=== PATIENT | female | born 1955 | race Caucasian/White ===

== ENCOUNTER 2024-10-13 07:03 | Emergency (ER) | payer MEDICARE, MEDICAID, SELFPAY ==
[2024-10-13] VITALS (7 sets, daily range): BP systolic 175–197; BP diastolic 121–140; PULSE 77–112; RESP 18–28; TEMP 36.6–37; O2SAT 92–96; BMI 24.2
--- NOTE | 2024-10-13 07:39 | EKG_ITS ---
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[id number] Requested By: Keith Kan Order Number: [id number] Reading MD: Keith Kan Measurements Intervals [place] Rate: 89 P: 52 MN: 142 QRS: -27 QRSD: 94 T: 120 QT: 399 QTc: 486 Interpretive Statements SINUS RHYTHM WITH OCCASIONAL SUPRAVENTRICULAR PREMATURE COMPLEXES POSSIBLE LEFT ATRIAL ENLARGEMENT [-0.1mV P-WAVE IN V1/V2] BORDERLINE LEFT AXIS DEVIATION [QRS AXIS < -20] LEFT VENTRICULAR HYPERTROPHY AND ST-T CHANGE [VOLTAGE CRITERIA PLUS ST/T ABNORMALITY] Compared to ECG 07/24/2024 14:54:05 Sinus arrhythmia no longer present ST (T wave) deviation still present /store/S0/[id number]
--- NOTE | 2024-10-13 07:39 | XR_ITS ---
Examination: AP chest single view Technique one AP portable upright chest single view Exam date 9: October 13, 2024 0750 hours COMPARISON: July 24, 2024 INDICATIONS: Shortness of breath today. FINDINGS: Mild to moderate CHF Mild enlargement cardiac contour, prominent vascular congestion with perihilar basilar edema Right axillary surgical clips IMPRESSION: Mild to moderate CHF
[2024-10-13 08:52] LABS: Basophils # (Auto) 0.1 Thou/mm3 (0.0-0.2); Basophils % (Auto) 1 % (0-2.5); Eosinophils % (Auto) 0 % (0-10); Hematocrit 38.6 % (36.0-46.0); Hemoglobin 12.9 g/dL (12.0-16.0); Immature Granulocytes % (Auto) 0 % (0-0); Immature Granulocytes Auto 0.03 Thou/mm3 (0.00-0.00); Lymphocytes # (Auto) 0.6 Thou/mm3 (1.0-4.8); Lymphocytes % (Auto) 7 % (10-50); Mean Corpuscular HGB Conc 33.4 g/dl (31.0-37.0); Mean Corpuscular Hemoglobin 31.5 pg (25.0-35.0); Mean Corpuscular Volume 94 fL (80-100); Monocytes # (Auto) 0.8 Thou/mm3 (0.0-0.8); Monocytes % (Auto) 9 % (0-12); Neutrophils # (Auto) 7.4 Thou/mm3 (1.8-7.7); Neutrophils % (Auto) 83 % (37-80); Nucleated Red Blood Cell % 0 /100 WBC (0); Platelet Count 215 Thou/mm3 (140-440); RDW Standard Deviation 49.1 fL (36.4-46.3); White Blood Count 8.9 Thou/mm3 (3.6-11.0)
[2024-10-13] MEDS: FUROSEMIDE INJ 10 MG/ML 4ML VIAL 80 MG IVP (09:20)
[2024-10-13 09:22] LABS: Alanine Aminotransferase 91 U/L (10-49); Albumin, Serum 3.9 gm/dL (3.4-4.8); Albumin/Globulin Ratio 1.5 (1.2-2.2); Alkaline Phosphatase 146 U/L (46-116); Anion Gap 11 (7-16); Aspartate Amino Transferase 51 U/L (0-34); BUN/Creatinine Ratio 25 Ratio (12-20); Bilirubin,Total 0.3 mg/dL (0.3-1.2); Blood Urea Nitrogen 59 mg/dL (9-23); Calcium 8.9 mg/dL (8.3-10.6); Carbon Dioxide 24.2 mMol/L (20.0-31.0); Chloride 103 mMol/L (98-107); Creatinine (Component) 2.4 mg/dL (0.6-1.3); Estimated Creatinine Clearance 17.8 mL/min (>60); Globulin 2.6 gm/dL (2.3-3.5); Glucose 125 mg/dL (74-106); Osmolality,Calculated 293 (275-295); Potassium 3.8 mMol/L (3.4-5.1); Sodium 138 mMol/L (136-145); Total Protein 6.5 gm/dL (5.7-8.2); eGFR 21 See Note
[2024-10-13 09:24] LABS: Troponin I 0.136 ng/mL (0.0-0.045)
--- NOTE | 2024-10-13 10:33 | PD.EDSOB ---
ED SOB =RME/HPI General Chief Complaint: Shortness of Breath/Dyspnea Stated Complaint: sob Time Seen by Provider: 10/13/24 07:17 Arrival date/time: 10/13/24 07:03 RME / HPI RME / HPI Narrative: 69 year old female with history of CHF, hypertension, breast cancer s/p mastectomy, methamphetamine use presents to the ED BIBA for evaluation of shortness of breath today. Reports feeling fluid in my lungs accompanied by wheezing. Reportedly ran out of her Lasix (20mg BID) and Albuterol inhaler 5 days ago. Additionally complains of vague abdominal pain and bilateral lower extremity swelling. Patient admits to using meth yesterday. Denies fevers, chills, nausea, vomiting, diarrhea, or urinary symptoms. Related Data Home Medications ?Medication ?Instructions ?Recorded ?Confirmed bupropion HCl 150 mg tablet,12 hr 150 mg PO BID 10/19/23 10/19/23 sustained-release tolterodine 4 mg capsule,extended 4 mg PO QDAY 10/19/23 10/19/23 release 24 hr Previous Rx's ?Medication ?Instructions ?Recorded albuterol sulfate 90 mcg/actuation 2 inh inhalation Q4H PRN shortness 04/26/24 aerosol inhaler of breath or wheezing #8.5 grams amlodipine 10 mg tablet 10 mg PO QDAY #30 tabs 07/14/24 albuterol sulfate 90 mcg/actuation 1 inh inhalation QID PRN shortness 10/13/24 aerosol inhaler of breath or wheezing #8.5 grams furosemide 20 mg tablet (Lasix) 20 mg PO BID #60 tabs 10/13/24 prednisone 50 mg tablet 50 mg PO QDAY #4 tabs 10/13/24 Allergies Allergy/AdvReac Type Severity Reaction Status Date / Time iodine Allergy Severe Rash Verified 07/23/24 13:17 Review of Systems Review of Systems Narrative Review of Systems: Gen: No fever, no chills, no weight loss EYES: No discharge, no visual changes, no pain HEENT: No ear pain, no congestion, no sore throat PULM: +shortness of breath, +wheezing CV: No chest pain, no palpitations, no chest tightness GI: No nausea, no vomiting, no diarrhea, no pain, no constipation : No frequency, no urgency,? no dysuria Musc/skel: +BLE swelling. No joint pain, no back pain Skin: No rash, no ecchymosis, no lesions Neuro: No weakness, no headache Past Medical History Past Medical History CARDIAC: Positive Cardiac Disorders, Congestive Heart Failure and Hypertension RESPIRATORY: Positive Chronic Obstructive Pulmonary Disease (COPD) and Bronchitis GASTROINTESTINAL: Positive Gastrointestinal Disorders, Gastrointestinal Bleed and Ulcer GENITOURINARY: Positive Genitourinary Disorders REPRODUCTIVE: Positive Breast Cancer and Previous Pregnancies MUSCULOSKELETAL: Positive Musculoskeletal Disorders and Arthritis HEMATOLOGIC: Positive Blood Disorders and Anemia PSYCHO/SOCIAL: Positive Recreational Drug Use, Depression, Anxiety and Post Traumatic Stress Disorder OTHER HISTORY: Positive Cosmetic Surgery (breast cancer surgery cosmetic. ), Falls, Blood Transfusions, Chicken Pox and Breast Cancer Family History FAMILY HISTORY: Positive Family Gastrointestinal Problems and Family Cancer Surgical History SURGICAL: Positive Mastectomy and Section Social History SMOKING STATUS: Never smoker SECOND HAND EXPOSURE: No ED Exam Narrative Physical exam: GENERAL APPEARANCE: AxOx4, no obvious distress, nontoxic appearing HEENT: NC, AT. MMM. EOMI, clear conjunctiva, oropharynx clear. NECK: Supple without lymphadenopathy. No stiffness or restricted ROM. HEART: Normal rate and regular rhythm, normal S1/S1, no m/r/g LUNGS: Mild increased respiratory effort, bundy expiratory wheezing. No crackles. ABDOMEN: Soft, nontender, nondistended with good bowel sounds heard. BACK: No midline C/T/L spine pain or deformity, No CVAT, no obvious deformity. EXTREMITIES: Without cyanosis, clubbing or edema. MUSCULOSKELETAL: FROM of all major joints, no chest tenderness NEUROLOGICAL: Grossly nonfocal. Alert and oriented, moving all 4 extremities. CN not formally tested but appear grossly intact. Skin: Warm and dry without any rash. Course Course Course Narrative: chest xray ordered to help determine etiology of shortness of breath. Quality Measures none Orders Category Date Time Status EKG (ED ONLY) *Do not use* NOW Care 10/13/24 07:39 Completed EKG (ED Only) Stat Exams 10/13/24 07:39 Draft XR chest 1V Stat Exams 10/13/24 07:39 Completed CBC Stat Lab 10/13/24 08:27 Completed CMP [Comprehensive Metabolic Panel] Stat Lab 10/13/24 08:27 Completed Troponin I Stat Lab 10/13/24 08:27 Completed Troponin I Stat Lab 10/13/24 11:12 Completed ALBUTEROL RT 0.5ml [Proventil Rt 0.5ml] Med 10/13/24 12:28 Discontinued 10 mg INH X1 ONE Furosemide Inj [Lasix Inj] Med 10/13/24 08:04 Discontinued 80 mg IVP X1 ONE Ipratropium [place] Rt Dee [Atrovent Rt Dee] Med 10/13/24 12:28 Discontinued 1 mg INH X1 ONE Sodium Chloride Rt Dee 0.9% [NS Rt Dee 0.9%] Med 10/13/24 12:28 Discontinued 3 ml INH PRN PRN predniSONE Med 10/13/24 12:28 Discontinued 60 mg PO X1 ONE Reevaluation(s) Reevaluation #1: On reassessment patient is still wheezing although is improved. Will order additional breathing treatment. Time: 12:40 Reevaluation #2: Wheezing improved after breathing treatments, no respiratory distress. We reviewed all the results, analysis, and treatment plans. Patient is amenable to discharge. Strict return precautions were outlined. Patient was discharged in stable condition. Time: 14:20 Vital Signs Vital signs: Vital Signs Temperature 97.9 F 10/13/24 07:28 Pulse Rate 97 10/13/24 07:28 Respiratory Rate 20 10/13/24 07:28 Blood Pressure 175/121 H 10/13/24 07:28 Pulse Oximetry (%) 95 10/13/24 07:28 Oxygen Delivery Method Room Air 10/13/24 07:28 Pulse ox is 92% on room air which is low. Shortness of Breath / Dyspnea MDM Narrative MDM Narrative:: Shira Wylie am scribing for and in the presence of Dr. Kan. Patient data External records reviewed:: [facility] previous records (I reviewed ED visit on 07/24/2024 for CHF) and EMS form Clinical information provided by:: patient and EMS Social determinants that could affect healthcare access:: substance use (Methamphetamine ) Patient has the following chronic illnesses:: CHF, hypertension, breast cancer s/p mastectomy, methamphetamine use How is presenting disease/condition affected by chronic disease/condition?: exacerbated by Evaluation data The following diagnostics were reviewed and interpreted by me:: lab results, radiology exam(s) and EKG tracing(s) (Sinus rhythm with arrhythmia, rate 89, no STEMI. ) Lab and/or radiology exams considered but not ordered:: None Interpretation Summary: Ordering Physician: Keith Kan MD Date of Service: 10/13/24 Procedure(s): XR chest 1V Accession Number(s): [id number] cc: Keith Kan MD; Panfilo Vasquez MD~ Examination: AP chest single view Technique one AP portable upright chest single view Exam date 9: October 13, 2024 0750 hours COMPARISON: July 24, 2024 INDICATIONS: Shortness of breath today. FINDINGS: Mild to moderate CHF Mild enlargement cardiac contour, prominent vascular congestion with perihilar basilar edema Right axillary surgical clips IMPRESSION: Mild to moderate CHF Dictated By: Panfilo Vasquez MD Signed By: <Electronically signed by Panfilo Vasquez MD in OV> 10/13/24 0903 Medications / Prescriptions Medications or Prescriptions considered but not ordered:: None Medication administrations:: Medication Administration History Discontinued Medications Albuterol (Albuterol Rt 2.5 Mg/0.5 Ml Nebu) 10 mg INH X1 ONE Stop: 10/13/24 12:29 Last Admin: 10/13/24 12:48 Dose: 10 mg Documented By: JAXON Furosemide (Furosemide Inj 10 Mg/Ml 4ml Vial) 80 mg IVP X1 ONE Stop: 10/13/24 08:05 Last Admin: 10/13/24 09:20 Dose: 80 mg Documented By: SHAVON Ipratropium [place] (Ipratropium Rt 0.5 Mg/ 2.5 Ml Nebu) 1 mg INH X1 ONE Stop: 10/13/24 12:29 Last Admin: 10/13/24 12:48 Dose: 1 mg Documented By: JAXON Prednisone (Prednisone 20 Mg Tablet) 60 mg PO X1 ONE Stop: 10/13/24 12:29 Last Admin: 10/13/24 12:48 Dose: 60 mg Documented By: SHAVON Sodium Chloride (Sodium Chloride Rt Dee 0.9% 3 Ml Nebu) 3 ml INH PRN PRN PRN Reason: SOLN Stop: 11/12/24 12:27 Last Admin: 10/13/24 12:49 Dose: 3 ml Documented By: JAXON See above Consultations Consultation(s) initiated? (list below): No Diagnosis Shortness of Breath Differential Diagnosis: acute exacerbation of chronic obstructive airways disease, congestive heart failure, community acquired pneumonia and asthma with exacerbation Most likely diagnosis given after review of the tests above:: Amphetamine abuse CHF COPD Admission Indicated Admission indicated?: not indicated Admission Request Was there a request for admission?: No Disposition Plan Disposition Plan: Discharge Discharge Attestation Discharge Attestation: The patient and all family members were given an opportunity to ask questions and understood the discharge instructions. Discharge instructions specifically effects, indications for sooner follow up or return to the emergency department, and the expected course of current diagnosis. Patient condition: Stable Critical Care Time Critical Care Time Critical Care Time: Yes Total Critical Care Time (min.): 35 Attestation: The high probability of sudden, clinically significant deterioration in the patient's condition required the highest level of my preparedness to intervene urgently. The services I provided to this patient were to treat and/or prevent clinically significant deterioration. Services included the following: chart data review, reviewing nursing notes and/or old charts, documentation time, aerodynamic consultant collaboration regarding findings and treatment options, medication orders and management, direct patient care, vital sign assessments and ordering, interpreting and reviewing diagnostic studies and lab tests. Aggregate critical care time includes only time during which I was engaged in work directly related to the patient's care, as described above, whether at bedside or elsewhere in the Emergency Department. It did not include time spent performing other reported procedures or the services of residents, students, nurses or physician assistants. Discharge Plan Plan Patient Disposition: HOME (Self Care) Prescriptions/Referrals Prescriptions/Med Rec: New prednisone 50 mg tablet 50 mg PO QDAY Qty: 4 0RF albuterol sulfate 90 mcg/actuation HFA aerosol inhaler 1 inh inhalation QID PRN (Reason: shortness of breath or wheezing) Qty: 8.5 0RF furosemide [Lasix] 20 mg tablet 20 mg PO BID Qty: 60 0RF No Action bupropion HCl 150 mg Tablet Sustained-Release 12 Hr 150 mg PO BID tolterodine 4 mg Capsule,Extended Release 24hr 4 mg PO QDAY amlodipine 10 mg tablet 10 mg PO QDAY Qty: 30 1RF albuterol sulfate 90 mcg/actuation HFA aerosol inhaler 2 inh inhalation Q4H PRN (Reason: shortness of breath or wheezing) Qty: 8.5 0RF Referrals: Keith Kan MD [Primary Care Provider] - In 1 week Problem List Clinical Impression: Amphetamine abuse, CHF (congestive heart failure), COPD (chronic obstructive pulmonary disease) Patient/Caregiver Discharge Instructions Education Materials: ED CHF Left Side, ED COPD Flare, ED Drug Abuse Additional Instructions: Stop using methamphetamines as it worsens your heart condition. Please take all medicines as prescribed. With the inhaler prescribed, give yourself 1 puff every 6 hours while awake for the next 3 days. After 3 days you can use the inhaler only as needed for shortness of breath. Follow-up with your primary care doctor in 2 to 3 days for recheck. You can return to the emergency department sooner symptoms worsen or if you notice any new or concerning issues. Print Language: Scottish Stand Alone Forms: Fern Award Info., Patient Portal Info Letter
[2024-10-13 11:48] LABS: Troponin I 0.127 ng/mL (0.0-0.045)
[2024-10-13] MEDS: predniSONE 20 MG TABLET 60 MG PO (12:48)
[2024-10-13] MEDS: IPRATROPIUM RT 0.5 MG/ 2.5 ML NEBU 1 MG INH (12:48)
[2024-10-13] MEDS: ALBUTEROL RT 2.5 MG/0.5 ML NEBU 10 MG INH (12:48)
[2024-10-13] MEDS: SODIUM CHLORIDE RT SOL 0.9% 3 ML NEBU INH (12:49)
== END 2024-10-13 15:36 | disposition home or self-care (01) ==
PROVIDERS: Emergency Provider Emergency Medicine; PCP Emergency Medicine
DX: I11.0 Hypertensive heart disease with heart failure (principal); I50.9 Heart failure, unspecified; F15.10 Other stimulant abuse, uncomplicated; J44.9 Chronic obstructive pulmonary disease, unspecified; I49.1 Atrial premature depolarization
CPT/HCPCS: 36415; 71045; 80053; 84484; 85025; 93005; 94644; 96374; 99284; J1940; J7512

== ENCOUNTER 2024-10-19 06:50 | Inpatient (IN) | payer MEDICARE, MEDICAID, SELFPAY ==
[2024-10-19] VITALS (16 sets, daily range): BP systolic 136–218; BP diastolic 84–141; PULSE 54–89; RESP 13–96; TEMP 36.2–36.6; O2SAT 91–100; BMI 26.7
--- NOTE | 2024-10-19 06:53 | EKG_ITS ---
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
--- NOTE | 2024-10-19 06:53 | XR_ITS ---
Examination: AP chest single view Single AP portable semiupright chest single view Examination time: General a 10/06/2025 0701 hours Comparison October 13, 2024 INDICATIONS: Shortness of breath today. FINDINGS: [id number] CHF Moderate enlargement left ventricle Prominent vascular congestion with perihilar edema Right axillary surgical clips Prominent osteopenia IMPRESSION: [id number] CHF
--- NOTE | 2024-10-19 07:01 | PD.EDADULT ---
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 Patient was recently seen in the ER on 10/13/2024 for similar complaints and has a history of repeated hospitalizations. In the ER, patient reports feeling fluid in my lungs , she has dry cough which accompanied by wheezing. She is homeless, active smoker and uses methamphetamine 2-3 x a week. Medication list: Albuterol rescue INH Amlodipine 10mg HS Lasix 20mg BID Tolterodine 4mg qD Bupropion 15mg BID Past surgical history: mastectomy for breast CA Allergies: Iodine - hives Social history: Marital?Status:? Tobacco?Use:?Active smoker >35 pack years ; 1/2 pack/daily at present ETOH?Use:?Denies Drug?Note:?Last used methamphetamine 4 days ago Social?History?Note:?Patient is homeless Family history: Unsure Related Data Home Medications ?Medication ?Instructions ?Recorded ?Confirmed bupropion HCl 150 mg tablet,12 hr 150 mg PO BID 10/19/23 10/19/23 sustained-release tolterodine 4 mg capsule,extended 4 mg PO QDAY 10/19/23 10/19/23 release 24 hr Previous Rx's ?Medication ?Instructions ?Recorded albuterol sulfate 90 mcg/actuation 2 inh inhalation Q4H PRN shortness 04/26/24 aerosol inhaler of breath or wheezing #8.5 grams amlodipine 10 mg tablet 10 mg PO QDAY #30 tabs 07/14/24 albuterol sulfate 90 mcg/actuation 1 inh inhalation QID PRN shortness 10/13/24 aerosol inhaler of breath or wheezing #8.5 grams furosemide 20 mg tablet (Lasix) 20 mg PO BID #60 tabs 10/13/24 prednisone 50 mg tablet 50 mg PO QDAY #4 tabs 10/13/24 Allergies Allergy/AdvReac Type Severity Reaction Status Date / Time iodine Allergy Severe Rash Verified 07/23/24 13:17 Review of Systems Review of Systems Narrative Review of Systems: GENERAL: Denies fevers/chills or diaphoresis. HEENT: Denies headache or visual/hearing changes. Denies nasal discharge. NEURO: Denies unusual weakness or difficulty speaking. CARDIO: Denies chest pain or palpitations. PULM: SOB, dry coughing, and wheezing. GI: Denies abdominal pain, N/V/C/D. Reports having BMs URO: Denies burning/itching/pain/urinary changes. TRAUMA COUNSELLOR: Denies menstrual changes, hot flashes. MSK/EXT/SKIN: Denies joint/skeletal/muscle pain, issues/changes in upper or lower extremities, itchiness, or superficial pain. PSYCH: Cooperative, pleasant mood & affect. The rest of the review of systems is otherwise negative. ED Exam Narrative Physical exam: Constitutional Alert, oriented x4. NC -> RA after lasix HEENT Vision grossly intact. Patent nares. Trachea midline. Respiratory Chest normal on inspection, diffuse wheezes and bi-basal crackles on auscultation. Cardiovascular S1 and S2 audible, RRR. No murmurs or carotid bruit. No gross JVD. Abdominal Soft and non tender to palpation in all quadrants. BS + Genitourinary No bladder tenderness, no flank pain. Normal to palpation. Musculoskeletal Extremities tone within normal limits. Minimal LE edema. Neurological CN II - XII grossly intact. Extremity motor and sensation grossly intact. Skin Warm, dry and intact. No apparent lesions. Psychiatric Patient has a good affect, is cooperative. Course Course Course Narrative: CXR : Moderate CHF vascular congestion Influenza: ++ positive Treatment: - received tamiflu 75mg x1 - given lasix IV 40mg x1 - For hypertensive urgency, given hydralazine 10mg IV x1 - resumed home Carvedilol 25mg p.o. x1 Quality Measures none Orders Category Date Time Status Bedside Blood Glucose NOW Care 10/19/24 06:54 Active Bedside COVID-19 Antigen Test NOW Care 10/19/24 06:54 Active Bedside Influenza A&B Antigen Test NOW Care 10/19/24 06:54 Completed EKG (ED ONLY) *Do not use* NOW Care 10/19/24 06:53 Completed Insert IV NOW Care 10/19/24 06:[address] chest abdomen pelvis wo Stat Exams 10/19/24 07:[address] head/brain wo con Stat Exams 10/19/24 07:40 Completed CXRP [XR chest 1V portable] Stat Exams 10/19/24 06:53 Completed EKG (ED Only) Stat Exams 10/19/24 06:53 Draft BNP [B-Type Natriuretic Peptide] Stat Lab 10/19/24 07:15 Completed CBC Stat Lab 10/19/24 07:15 Completed CMP [Comprehensive Metabolic Panel] Stat Lab 10/19/24 07:15 Completed Drug Screen,Urine Stat Lab 10/19/24 07:26 Completed Lactic Acid [Lactate (Lactic Acid)] Stat Lab 10/19/24 07:15 Completed Magnesium Stat Lab 10/19/24 07:15 Completed Troponin I Stat Lab 10/19/24 07:15 Completed Urinalysis Stat Lab 10/19/24 07:28 Completed Albuterol/Ipratr Rt Dee [Duoneb Rt Dee] Med 10/19/24 06:54 Discontinued 3 ml INH X1 ONE Furosemide Inj [Lasix Inj] Med 10/19/24 06:53 Discontinued 40 mg IVP X1 ONE Labetalol IV [Trandate IV] Med 10/19/24 10:06 Discontinued 10 mg IVP X1 ONE Magnesium Sulfate 2 GM Ivpb [Magnesium Sulfate Ivpb] Med 10/19/24 07:37 Discontinued 2 gm in 50 ml IV X1 Magnesium Sulfate 2 GM Ivpb [Magnesium Sulfate Ivpb] Med 10/19/24 09:30 Discontinued 2 gm in 50 ml IV X1 Magnesium Sulfate 2 GM Ivpb [Magnesium Sulfate Ivpb] Med 10/19/24 09:30 Discontinued 2 gm in 50 ml IV X1 Morphine Inj Med 10/19/24 07:37 Discontinued 2 mg IVP X1 ONE Nitroglycerin Oint 2% [Nitro-paste Oint 2%] Med 10/19/24 07:39 Discontinued 2 inch TOP X1 ONE Nitroglycerin [Nitro-dur Patch] Med 10/19/24 07:37 Discontinued 0.4 mg TOP X1 ONE Oseltamivir [Tamiflu] Med 10/19/24 09:52 Discontinued 75 mg PO X1 ONE carVEDILOL [Coreg] Med 10/19/24 09:53 Discontinued 12.5 mg PO X1 ONE carVEDILOL [Coreg] Med 10/19/24 10:07 Discontinued 25 mg PO X1 ONE guaiFENesin/DM [Mucinex DM] Med 10/19/24 06:59 Discontinued 1 each PO X1 ONE hydrALAZINE INJ [Apresoline Inj] Med 10/19/24 09:18 Discontinued 10 mg IV X1 ONE Special Diet Request Routine Oth 10/19/24 10:10 Active Oxygen Delivery NOW RT 10/19/24 07:00 Active Reevaluation(s) Reevaluation #1: 10:00am BP 190-200 systolic 30mins after IV Hydralazine 10mg x1 Vital Signs Vital signs: Vital Signs Pulse Rate 69 10/19/24 07:05 Respiratory Rate 18 10/19/24 07:05 Pulse Oximetry (%) 100 10/19/24 07:[address] [facility] Patient data External records reviewed:: [facility] previous records Clinical information provided by:: patient Social determinants that could affect healthcare access:: substance use Patient has the following chronic illnesses:: HFrEF 305, CKD stage IV, meth use, smoking, primary HTN How is presenting disease/condition affected by chronic disease/condition?: exacerbated by Evaluation data The following diagnostics were reviewed and interpreted by me:: lab results, radiology exam(s) and EKG tracing(s) (My interpretation of the EKG is: Sinus rhythm (68 bpm) with nonspecific ST-T changes. Delonte Beard MD) Lab and/or radiology exams considered but not ordered:: None Interpretation Summary: Hypertensive urgency and CHF exacerbation in the setting of medication non compliance Medications Medications considered but not ordered:: bumex Medication administrations:: Medication Administration History Acetaminophen (Acetaminophen 325 Mg Tablet) 650 mg PO Q6H PRN PRN Reason: pain and Fever >100.4 Stop: 11/18/24 11:25 Hydrocodone Bitart/Acetaminophen (Hydrocodone/Apap 5/325 Tablet) 1 tab PO Q4HR PRN PRN Reason: PAIN SCALE 4-10(Mod-Sev Stop: 10/24/24 11:25 Albuterol/Ipratropium (Albuterol/Ipratropium (Duoneb) Rt Dee 3 Ml Nebu) 3 ml INH Q4HRRT [facility] Stop: 11/18/24 14:59 Last Admin: 10/19/24 14:34 Dose: 3 ml Documented By: JAXON Azithromycin (Azithromycin 250 Mg Tablet) 500 mg PO QDAY [facility] Stop: 10/26/24 14:29 Carvedilol (Carvedilol 12.5 Mg Tablet) 12.5 mg PO BIDWM [facility] Stop: 11/19/24 08:59 Enoxaparin Sodium (Enoxaparin Sod Inj 30 Mg/0.3 Ml Syringe) 40 mg SC QDAY [facility] Stop: 11/03/24 08:59 Furosemide (Furosemide Inj 10 Mg/Ml 4ml Vial) 40 mg IVP QDAY [facility] Stop: 11/19/24 08:59 Ceftriaxone Sodium/Dextrose (Rocephin/D5w 1gm Iv Premix) 50 mls @ 100 mls/hr IV QDAY [facility] Stop: 10/26/24 14:26 Methylprednisolone Sodium Succinate (Methylprednisolone Sod Succ 40 Mg Vial) 40 mg IVP QDAY [facility] Stop: 10/26/24 11:44 Last Admin: 10/19/24 12:38 Dose: 40 mg Documented By: APRIL Ondansetron HCl (Ondansetron Inj 2 Mg/Ml Inj 2 Ml) 4 mg IV Q6H PRN; Protocol PRN Reason: NAUSEA OR VOMITING Stop: 11/18/24 11:25 Oseltamivir Phosphate (Oseltamivir 30 Mg Capsule) 30 mg PO QDAY [facility] Stop: 10/24/24 08:59 Pantoprazole Sodium (Pantoprazole 40 Mg Tablet) 40 mg PO QDAY [facility] Stop: 11/19/24 08:59 Sennosides (Senna Tablet) 1 tab PO QDAY PRN; Protocol PRN Reason: constipation Stop: 11/18/24 11:25 Discontinued Medications Albuterol/Ipratropium (Albuterol/Ipratropium (Duoneb) Rt Dee 3 Ml Nebu) 3 ml INH X1 ONE Stop: 10/19/24 06:55 Last Admin: 10/19/24 07:05 Dose: 3 ml Documented By: JAXON Carvedilol (Carvedilol 12.5 Mg Tablet) 12.5 mg PO X1 ONE Stop: 10/19/24 09:54 Last Admin: 10/19/24 10:09 Dose: Not Given Documented By: APRIL Non-Admin Reason: Discontinued Carvedilol (Carvedilol 12.5 Mg Tablet) 25 mg PO X1 ONE Stop: 10/19/24 10:08 Last Admin: 10/19/24 10:35 Dose: 25 mg Documented By: APRIL Furosemide (Furosemide Inj 10 Mg/Ml 4ml Vial) 40 mg IVP X1 ONE Stop: 10/19/24 06:54 Last Admin: 10/19/24 08:03 Dose: 40 mg Documented By: VG Guaifenesin/Dextromethorphan (Guaifenesin/Dm Tablet) 1 each PO X1 ONE Stop: 10/19/24 07:00 Last Admin: 10/19/24 09:35 Dose: 1 each Documented By: APRIL Hydralazine HCl (Hydralazine Inj 20 Mg/Ml Vial) 10 mg IV X1 ONE Stop: 10/19/24 09:19 Last Admin: 10/19/24 09:35 Dose: 10 mg Documented By: APRIL Magnesium Sulfate (Magnesium Sulfate Ivpb) 2 gm in 50 mls @ 999 mls/hr IV X1 ONE Stop: 10/19/24 07:39 Last Admin: 10/19/24 09:30 Dose: Not Given Documented By: VG Non-Admin Reason: Cancelled by Provider Magnesium Sulfate (Magnesium Sulfate Ivpb) 2 gm in 50 mls @ 999 mls/hr IV X1 ONE Stop: 10/19/24 09:32 Magnesium Sulfate (Magnesium Sulfate Ivpb) 2 gm in 50 mls @ 25 mls/hr IV X1 ONE Stop: 10/19/24 11:29 Last Infusion: 10/19/24 12:35 Dose: Infused Documented By: Admin: 10/19/24 09:32 Dose: 25 mls/hr Documented By: APRIL Labetalol HCl (Labetalol Inj 5 Mg/Ml Vial 20 Ml) 10 mg IVP X1 ONE Stop: 10/19/24 10:07 Morphine Sulfate (Morphine Sulf Inj 10 Mg/Ml Vial) 2 mg IVP X1 ONE Stop: 10/19/24 07:38 Last Admin: 10/19/24 08:02 Dose: 2 mg Documented By: APRIL Nitroglycerin (Nitroglycerin 0.4 Mg/Hr Patch.Td24) 0.4 mg TOP X1 ONE Stop: 10/19/24 07:38 Last Admin: 10/19/24 07:52 Dose: Not Given Documented By: VG Non-Admin Reason: Discontinued Nitroglycerin (Nitroglycerin Oint 2% 1 Inch Packet) 2 inch TOP X1 ONE Stop: 10/19/24 07:40 Last Admin: 10/19/24 08:20 Dose: 2 inch Documented By: APRIL Oseltamivir Phosphate (Oseltamivir 75 Mg Capsule) 75 mg PO X1 ONE Stop: 10/19/24 09:53 Last Admin: 10/19/24 10:35 Dose: 75 mg Documented By: APRIL Potassium Chloride (Potassium Chloride 20 Meq Tabcr) 20 meq PO X1 ONE Stop: 10/19/24 14:48 Lasix and Mg and morphine and topical NTG and Tamiflu and labetalol Consultations Consultation(s) initiated? (list below): No Diagnosis Differential Diagnosis ED Complaint MDM: [place], CHF, pneumonia, respiratory failure, COVID, influenza Most likely diagnosis given after review of the tests above:: Hypertensive urgency HFrEF exacerbation Viral bronchitis due to influenza Admission Indicated Admission indicated?: indicated Explain why admission is indicated or not indicated:: Hypertensive urgency refractory to IV anti hypertesnives HFrEF exacerbation, now on room air but pending medication compliance Social - needs placement , patient is homeless. Admission Request Was there a request for admission?: Yes Admission Attestation Admission request attestation: Discussed case with Hospitalist service regarding admission. Discussed patients ED course, exam findings, labs, and radiology results. The Hospitalist [agrees,declines] to accept the patient for admission. Disposition Plan Disposition Plan: Admit Medical Decision Making MDM Narrative MDM Narrative: Patient is a 69 year old female who presented with SOB in the setting of HFrEF 30% and active meth use (last used 4 days ago). CXR showed moderate CHF. Patient was laos found to be influenza A positive on bedside testing. BP noted to be >200 on presentation, refractory to IV antihypertensives. Patient is also homeless and has not been compliant with her home medications for x1 week. Diagnosis: - Hypertensive urgency refractory to IV anti hypertesnives - HFrEF exacerbation - Worsening CKD IIIb -> IV - Viral bronchitis due to influenza + - Social - needs placement , patient is homeless. Treatment: - received tamiflu 75mg x1 - given lasix IV 40mg x1 - IV hydralazine 10mg x1 - resumed home Carvedilol 25mg p.o. x1 Plan: Decision to admit to inpatient service for further management Patient will benefit from cardiology and Nephrology consultation Differential Diagnosis Differential Diagnosis: [place], CHF, pneumonia, respiratory failure, COVID, influenza Lab Data 10/19/24 07:15 10/19/24 07:15 Labs: Lab Results 10/19/24 10/19/24 10/19/24 Range/Units 07:15 07:26 07:28 WBC 7.7 (3.6-11.0) Thou/mm3 RBC 4.39 (4.00-5.20) Miln/mm3 Hgb 13.9 (12.0-16.0) g/dL Hct 42.4 (36.0-46.0) % MCV 97 (80-100) fL MCH 31.7 (25.0-35.0) pg MCHC 32.8 (31.0-37.0) g/dl RDW Std Deviation 49.8 H (36.4-46.3) fL Plt Count 303 D (140-440) Thou/mm3 Neut % (Auto) 79 (37-80) % Lymph % (Auto) 15 (10-50) % Creek % (Auto) 4 (0-12) % Eos % (Auto) 2 (0-10) % Baso % (Auto) 1 (0-2.5) % Neut # (Auto) 6.0 (1.8-7.7) Thou/mm3 Lymph # (Auto) 1.1 (1.0-4.8) Thou/mm3 Creek # (Auto) 0.3 (0.0-0.8) Thou/mm3 Eos # (Auto) 0.1 (0.0-0.5) Thou/mm3 Baso # (Auto) 0.0 (0.0-0.2) Thou/mm3 Immature Gran # (Auto) 0.03 H (0.00-0.00) Thou/mm3 Absolute Nucleated RBC 0.00 (0.00-0.00) Thou/mm3 Immature Gran % 0 (0-0) % Nucleated RBC % 0 (0) /100 WBC Sodium 141 (136-145) mMol/L Potassium 3.9 (3.4-5.1) mMol/L Chloride 105 (98-107) mMol/L Carbon Dioxide 26.4 (20.0-31.0) mMol/L Anion Gap 10 (7-16) BUN 73 H (9-23) mg/dL Creatinine 2.4 H (0.6-1.3) mg/dL Estim Creat Clear Calc 20.7 L (>60) mL/min eGFR 21 L (60 - ) See Note BUN/Creatinine Ratio 30 H (12-20) Ratio Glucose 92 (74-106) mg/dL Calculated Osmolality 302 H (275-295) Lactic Acid 1.2 (0.4-2.0) mMol/L Calcium 8.5 (8.3-10.6) mg/dL Corrected Calcium 8.7 (8.5-10.1) mg/dL Magnesium 1.7 (1.6-2.6) mg/dL Total Bilirubin 0.2 L (0.3-1.2) mg/dL AST 113 H (0-34) U/L ALT 102 H (10-49) U/L Alkaline Phosphatase 184 H (46-116) U/L Troponin I 0.075 H* (0.0-0.045) ng/mL B-Natriuretic Peptide > 3280 H* (0-100) pg/mL Total Protein 6.6 (5.7-8.2) gm/dL Albumin 3.8 (3.4-4.8) gm/dL Globulin 2.8 (2.3-3.5) gm/dL Albumin/Globulin Ratio 1.4 (1.2-2.2) Ur Collection Type Clean Catch Urine Color Lt-Yellow (Lt Yel-Yel) Urine Clarity Clear (Clear/Hazy) Urine pH 6.5 (5.0-7.0) Ur Specific [place] 1.019 (1.001-1.035) Urine Protein 3+ A (Neg - Trace) Urine Glucose (UA) 3+ A (Negative) Urine Ketones Negative (Negative) Urine Blood 2+ A (Negative) Urine Nitrite Negative (Negative) Urine Bilirubin Negative (Negative) Urine Urobilinogen (Auto) Negative (0.0-1.0) mg/dL Ur Leukocyte Esterase Negative (Negative) Urine RBC 49 H (0-3) /hpf Urine WBC 4 (0-5) /hpf Ur Squamous Epith Cells 3 (0-5) /hpf Amorphous Crystals Present A (Absent) Urine Bacteria None (None) Urine Opiates Screen Negative (Negative) Urine Fentanyl Screen Negative (Negative) Ur Barbiturates Screen Negative (Negative) U Amphetamin/Meth Scrn Negative (Negative) U Benzodiazepines Scrn Negative (Negative) U Cocaine Metab Screen Negative (Negative) U Marijuana (THC) Screen Negative (Negative) Discharge Plan Plan Patient Disposition: Admit Acute Care w/in Hospital Patient condition on transfer: Stable Problem List Clinical Impression: Hypertensive urgency, Chronic kidney disease, Bronchitis, Congestive heart failure
[2024-10-19] MEDS: ALBUTEROL/IPRATROPIUM (Duoneb) RT SOL 3 ML NEBU INH ×4 (07:05→23:20)
[2024-10-19 07:33] LABS: Collection Type, Urine Clean Catch
[2024-10-19 07:39] LABS: Lactate (Lactic Acid) 1.2 mMol/L (0.4-2.0)
--- NOTE | 2024-10-19 07:40 | XR_ITS ---
Examination: CT chest, without intravenous contrast. CT abdomen, without intravenous contrast. CT pelvis, without intravenous contrast. 2-D sagittal and coronal reconstructions. 3-D reconstructions. Date and time of exam:October 19, [address] abdomen pelvis October 17, 2023 INDICATIONS: Onset chest pain shortness of breath abdominal pain today CTDI vol (mgy) 9.29 DLP (MGycm)641 Technique: Multiple CT images, 3.0 mm slice thickness, obtained chest, abdomen, pelvis, with the high-resolution 64 slice scanner.. Sagittal and coronal 2-D reconstructions are obtained. 3-D reconstructions Low dose protocols were performed. One or more of the following dose reduction techniques were used; automated exposure control, adjustment of the mA and/or KV according to patient size, use of iterative reconstruction technique. Findings: Thoracic aortic calcification no aneurysmal dilatation Pulmonary artery segments are not enlarged Calcified right breast implant Moderate calcification left anterior descending left circumflex right coronary arteries Mild to moderate enlargement cardiac contour No paratracheal tracheobronchial or bronchopulmonary adenopathy Pneumonia in the lingular segment left upper lobe No pulmonary edema Mild left pleural disease Minimal right pleural disease Cirrhosis, liver irregular in contour Mild ascites No focal liver lesions Gallbladder wall appears mildly thickened Spleen is not enlarged Pancreatic calcifications no pancreatic mass Significant renal parenchymal scar formation Abdominal aortic calcification no aneurysmal dilatation No CT findings of appendicitis or bowel obstruction No diverticulitis Prominent osteopenia with diffuse [id number] lumbar degenerative disc disease IMPRESSION: Pneumonia in the lingular segment left upper lobe No pulmonary edema Cirrhosis, no focal liver lesions Mild ascites Recommend gallbladder sonography follow-up. Significant bilateral renal parenchymal scar formation, no hydronephrosis No CT findings of appendicitis or bowel obstruction
--- NOTE | 2024-10-19 07:40 | XR_ITS ---
Examination: CT brain head without contrast. 2-D sagittal coronal reconstructions Date and time of exam:October 19, 2024 0836 hours Comparison October 06, 2022 INDICATIONS: Diagnosis malignant hypertension today with head pain CTDI: vol (mGy):51.2 DLP: (mGycm):1001 Technique: Multiple CT axial sections of the brain have been obtained, 5 mm slice thickness. Contrast has not been administered. 2-D sagittal, coronal reconstructions have been obtained Low dose protocols were performed. One or more of the following dose reduction techniques were used; automated exposure control, adjustment of the mA and/or KV according to patient size, use of iterative reconstruction technique. Findings: No significant ventricular enlargement. Intra-axial or extra-axial hemorrhage density is not seen. No mass effect or midline shift Basal cisterns are not remarkable. Fourth ventricle is midline. Cranial vault intact. Impression: Negative for acute hemorrhage, mass effect or midline shift
[2024-10-19 07:43] LABS: Basophils % (Auto) 1 % (0-2.5); Eosinophils # (Auto) 0.1 Thou/mm3 (0.0-0.5); Eosinophils % (Auto) 2 % (0-10); Hematocrit 42.4 % (36.0-46.0); Hemoglobin 13.9 g/dL (12.0-16.0); Immature Granulocytes % (Auto) 0 % (0-0); Immature Granulocytes Auto 0.03 Thou/mm3 (0.00-0.00); Lymphocytes # (Auto) 1.1 Thou/mm3 (1.0-4.8); Lymphocytes % (Auto) 15 % (10-50); Mean Corpuscular HGB Conc 32.8 g/dl (31.0-37.0); Mean Corpuscular Hemoglobin 31.7 pg (25.0-35.0); Mean Corpuscular Volume 97 fL (80-100); Monocytes # (Auto) 0.3 Thou/mm3 (0.0-0.8); Monocytes % (Auto) 4 % (0-12); Neutrophils % (Auto) 79 % (37-80); Nucleated Red Blood Cell % 0 /100 WBC (0); Platelet Count 303 Thou/mm3 (140-440); RDW Standard Deviation 49.8 fL (36.4-46.3); Red Blood Count 4.39 Miln/mm3 (4.00-5.20); White Blood Count 7.7 Thou/mm3 (3.6-11.0)
[2024-10-19 07:50] LABS: Amphetamine/Methamp Scrn,U Negative (Negative); Barbiturate Screen,Urine Negative (Negative); Benzodiazepines Screen,Urine Negative (Negative); Benzoylecgonine Screen, Ur Negative (Negative); Fentanyl Screen,Urine Negative (Negative); Opiate Screen,Urine Negative (Negative); THC Screen,Urine Negative (Negative)
[2024-10-19 07:57] LABS: Amorphous Crystals,Urine Present (Absent); Bilirubin,Urine Negative (Negative); Blood,Urine 2+ (Negative); Clarity,Urine Clear (Clear/Hazy); Color,Urine Lt-Yellow (Lt Yel-Yel); Glucose, Urine 3+ (Negative); Ketones,Urine Negative (Negative); Leukocyte Esterase,Urine Negative (Negative); Nitrite,Urine Negative (Negative); PH,Urine 6.5 (5.0-7.0); Protein,Urine 3+ (Neg - Trace); RBC,Urine 49 /hpf (0-3); Specific Gravity,Urine 1.019 (1.001-1.035); Squamous Epithelial Cell,Urine 3 /hpf (0-5); Urobilinogen,Urine Negative mg/dL (0.0-1.0); WBC,Urine 4 /hpf (0-5)
[2024-10-19] MEDS: MORPHINE SULF INJ 10 MG/ML VIAL 2 MG IVP (08:02)
[2024-10-19 08:03] LABS: Alanine Aminotransferase 102 U/L (10-49); Albumin, Serum 3.8 gm/dL (3.4-4.8); Albumin/Globulin Ratio 1.4 (1.2-2.2); Alkaline Phosphatase 184 U/L (46-116); Anion Gap 10 (7-16); Aspartate Amino Transferase 113 U/L (0-34); BUN/Creatinine Ratio 30 Ratio (12-20); Bilirubin,Total 0.2 mg/dL (0.3-1.2); Blood Urea Nitrogen 73 mg/dL (9-23); Calcium 8.5 mg/dL (8.3-10.6); Calcium (Corrected) 8.7 mg/dL (8.5-10.1); Carbon Dioxide 26.4 mMol/L (20.0-31.0); Chloride 105 mMol/L (98-107); Creatinine (Component) 2.4 mg/dL (0.6-1.3); Estimated Creatinine Clearance 20.7 mL/min (>60); Globulin 2.8 gm/dL (2.3-3.5); Glucose 92 mg/dL (74-106); Magnesium 1.7 mg/dL (1.6-2.6); Osmolality,Calculated 302 (275-295); Potassium 3.9 mMol/L (3.4-5.1); Sodium 141 mMol/L (136-145); Total Protein 6.6 gm/dL (5.7-8.2); eGFR 21 See Note
[2024-10-19] MEDS: FUROSEMIDE INJ 10 MG/ML 4ML VIAL 40 MG IVP (08:03)
[2024-10-19 08:05] LABS: Troponin I 0.075 ng/mL (0.0-0.045)
[2024-10-19] MEDS: NITROGLYCERIN OINT 2% 1 INCH PACKET 2 INCH TOP (08:20)
[2024-10-19 08:24] LABS: B-Type Natriuretic Peptide > 3280 pg/mL (0-100)
[2024-10-19] MEDS: Magnesium Sulfate 2 GM Ivpb 2 GM/50 ML BAG IV (09:32)
[2024-10-19] MEDS: guaiFENesin/DM TABLET 1 EACH PO (09:35)
[2024-10-19] MEDS: hydrALAZINE INJ 20 MG/ML VIAL 10 MG IV (09:35)
[2024-10-19] MEDS: carVEDILOL 12.5 MG TABLET 25 MG PO (10:35)
[2024-10-19] MEDS: OSELTAMIVIR 75 MG CAPSULE PO (10:35)
--- NOTE | 2024-10-19 11:37 | ESHP_ITS ---
Documentation for date of: 10/19/24 HPI History of Present Illness Chief complaint: SOB and cough History of present illness: 69-year-old female with past medical history of HFrEF (EF 30 to 35% on 06/2024), CKD stage IIIb, COPD, meth use, hypertension, and breast cancer status post bilateral mastectomy was admitted to the hospital on 10/19/2023 after coming to the ED with complaints of worsening shortness of breath. On assessment patient stated that she has had worsening shortness of breath for the past few weeks along with a cough. Patient also endorsed having bodyaches and diarrhea, but denies having any sick contacts. Patient stated that she was supposed to see a physician today to get a refill on her medications, but that she was not able to go. She stated that she has not seen her program technician as outpatient and has not seen a bed placement coordinator in quite a while. Patient also stated that she has not been taking her medications for heart failure as she has no refills. Patient stated that she last used meth and marijuana around 4 or 5 days ago, but is trying to quit. She also mentioned that she has been trying to quit smoking and her last cigarette was 1 week ago. Patient mentioned that she is not COVID vaccinated and she does not have her flu vaccine either. Of note patient was seen on 10/13/2024 in the ED after coming with similar complaints. Patient was discharged joint dislocation on prednisone and Lasix as well as an albuterol inhaler. ED course: Initially came in hypertensive and afebrile. Initial labs were relevant for SREE (current 2.4), transaminitis (AST 113, ALT 102, alkaline phosphatase 184), elevated troponins (0.075), elevated BNP, and greater than 3280. Initial imaging included chest x-ray which showed mild to moderate CHF, EKG showed sinus rhythm, chest/abdomen/pelvis CT showed pneumonia of left upper lobe, cirrhosis, mild ascites, and bilateral renal parenchymal scar formation, and head CT was unremarkable. Patient was influenza and COVID positive. In the ED patient received carvedilol 12.5 mg x 1, carvedilol 25 mg x 1, DuoNebs x 1, Lasix 40 mg x 1, hydralazine 10 mg x 1, nitroglycerin, and 1 dose of Tamiflu. PMH: As above Surgical Hx: and mastectomy Social Hx: Admits to meth and marijuana use, admits to smoking, denies any alcohol Review of Systems Review of Systems Narrative Review of Systems: Constitutional: Denies sweats, Denies weight loss/gain, Admits fever, Denies chills. HEENT: Denies hearing loss, Denies ear pain, Denies postnasal drip, Denies double vision, Denies blurry vision. Respiratory: Admits shortness of breath, Admits cough, Admits wheezing. Cardiovascular: Denies chest pain, Denies palpitations, Denies sudden loss of consciousness. GI: Denies blood in stool, Denies constipation, Denies abdominal pain, Denies difficulty swallowing, Denies nausea or vomit. : Denies urinary incontinence, Denies pain while urinating, Denies increased urinary frequency. MSK: Admits joint pain, Denies joint swelling, Denies numbness. Skin: Denies rash, Denies itching, Denies easy bruising. Neuro: Denies headaches, Denies dizziness, Denies seizures. Past Medical History Past Medical History CARDIAC: Positive Cardiac Disorders, Congestive Heart Failure and Hypertension RESPIRATORY: Positive Chronic Obstructive Pulmonary Disease (COPD) and Bronchitis GASTROINTESTINAL: Positive Gastrointestinal Disorders, Gastrointestinal Bleed and Ulcer GENITOURINARY: Positive Genitourinary Disorders REPRODUCTIVE: Positive Breast Cancer and Previous Pregnancies MUSCULOSKELETAL: Positive Musculoskeletal Disorders and Arthritis HEMATOLOGIC: Positive Blood Disorders and Anemia PSYCHO/SOCIAL: Positive Recreational Drug Use, Depression, Anxiety and Post Traumatic Stress Disorder OTHER HISTORY: Positive Cosmetic Surgery (breast cancer surgery cosmetic. ), Falls, Blood Transfusions, Chicken Pox and Breast Cancer Family History FAMILY HISTORY: Positive Family Gastrointestinal Problems and Family Cancer Surgical History SURGICAL: Positive Mastectomy and Section Social History SMOKING STATUS: Never smoker SECOND HAND EXPOSURE: No Exam Vital Signs Temp Pulse Resp BP Pulse Ox O2 Del Method 97.8 F 63 16 181/107 H 100 Room Air 10/19/24 07:30 10/19/24 10:35 10/19/24 07:30 10/19/24 10:35 10/19/24 07:30 10/19/24 07:30 Narrative Exam General: A/O x3, in mild respiratory distress, disheveled Eyes: PERRL, EOMI. Anicteric, vision grossly intact. Ears: No ear pain, no ear discharge, Hearing grossly intact. Nose: No nasal discharge. Mouth/Throat: Dry mucous membranes, no redness, no lesions. Neck: Neck supple, non-tender, no cervical lymphadenopathy. Lungs: Decreased breath sounds with expiratory wheezing, No accessory muscle use. Cardio: Normal S1/S2, regular rhythm, no murmurs, no JVD. Abdomen: Soft, non-tender, no palpable masses, peristalsis present, no guarding or rebound. Extremities: Symmetrical, no significant deformities, 1+ peripheral edema upto knee level , non-tender, peripheral pulses presents. Skin: No rashes, no lesions, warm to touch. Neuro: No focal neurological deficits. motor and sensory intact Psych: irritable Results: Labs 10/19/24 07:15 10/20/24 04:33 Labs: Short CBC 10/19/24 Range/Units 07:15 WBC 7.7 (3.6-11.0) Thou/mm3 Hgb 13.9 (12.0-16.0) g/dL Hct 42.4 (36.0-46.0) % Plt Count 303 D (140-440) Thou/mm3 BMP 10/19/24 07:15 Sodium 141 Potassium 3.9 Chloride 105 Carbon Dioxide 26.4 BUN 73 H Creatinine 2.4 H Glucose 92 Calcium 8.5 Cardiac Enzymes 10/19/24 Range/Units 07:15 Troponin I 0.075 H* (0.0-0.045) ng/mL Liver Function 10/19/24 Range/Units 07:15 Total Bilirubin 0.2 L (0.3-1.2) mg/dL AST 113 H (0-34) U/L ALT 102 H (10-49) U/L Alkaline Phosphatase 184 H (46-116) U/L Albumin 3.8 (3.4-4.8) gm/dL Urine 10/19/24 Range/Units 07:28 Urine Color Lt-Yellow (Lt Yel-Yel) Urine Clarity Clear (Clear/Hazy) Urine pH 6.5 (5.0-7.0) Ur Specific [place] 1.019 (1.001-1.035) Urine Protein 3+ A (Neg - Trace) Urine Glucose (UA) 3+ A (Negative) Quality Measures Quality Measures none Advance care planning discussed with:: patient Medications Home Medications and Allergies Home Medications ?Medication ?Instructions ?Recorded ?Confirmed ?Type bupropion HCl 150 mg tablet,12 hr 150 mg PO BID 10/19/23 History sustained-release tolterodine 4 mg capsule,extended 4 mg PO QDAY 4 10/19/23 History release 24 hr Allergies Allergy/AdvReac Type Severity Reaction Status Date / Time iodine Allergy Severe Rash Verified 07/23/24 13:17 Visit Medications Acetaminophen (Acetaminophen 325 Mg Tablet) 650 mg PO Q6H PRN PRN Reason: pain and Fever >100.4 Stop: 11/18/24 11:25 Hydrocodone Bitart/Acetaminophen (Hydrocodone/Apap 5/325 Tablet) 1 tab PO Q4HR PRN PRN Reason: PAIN SCALE 4-10(Mod-Sev Stop: 10/24/24 11:25 Carvedilol (Carvedilol 12.5 Mg Tablet) 12.5 mg PO BIDWM [facility] Stop: 11/19/24 08:59 Enoxaparin Sodium (Enoxaparin Sod Inj 40 Mg/0.4 Ml Syringe) 40 mg SC QDAY [facility] Stop: 11/03/24 08:59 Furosemide (Furosemide Inj 10 Mg/Ml 4ml Vial) 40 mg IVP QDAY [facility] Stop: 11/19/24 08:59 Methylprednisolone Sodium Succinate (Methylprednisolone Sod Succ 40 Mg Vial) 40 mg IVP QDAY [facility] Stop: 10/26/24 11:44 Ondansetron HCl (Ondansetron Inj 2 Mg/Ml Inj 2 Ml) 4 mg IV Q6H PRN; Protocol PRN Reason: NAUSEA OR VOMITING Stop: 11/18/24 11:25 Oseltamivir Phosphate (Oseltamivir 30 Mg Capsule) 30 mg PO QDAY [facility] Stop: 10/24/24 08:59 Pantoprazole Sodium (Pantoprazole 40 Mg Tablet) 40 mg PO QDAY [facility] Stop: 11/19/24 08:59 Sennosides (Senna Tablet) 1 tab PO QDAY PRN; Protocol PRN Reason: constipation Stop: 11/18/24 11:25 Discontinued Medications Albuterol/Ipratropium (Albuterol/Ipratropium (Duoneb) Rt Dee 3 Ml Nebu) 3 ml INH X1 ONE Stop: 10/19/24 06:55 Last Admin: 10/19/24 07:05 Dose: 3 ml Carvedilol (Carvedilol 12.5 Mg Tablet) 12.5 mg PO X1 ONE Stop: 10/19/24 09:54 Last Admin: 10/19/24 10:09 Dose: Not Given Carvedilol (Carvedilol 12.5 Mg Tablet) 25 mg PO X1 ONE Stop: 10/19/24 10:08 Last Admin: 10/19/24 10:35 Dose: 25 mg Furosemide (Furosemide Inj 10 Mg/Ml 4ml Vial) 40 mg IVP X1 ONE Stop: 10/19/24 06:54 Last Admin: 10/19/24 08:03 Dose: 40 mg Guaifenesin/Dextromethorphan (Guaifenesin/Dm Tablet) 1 each PO X1 ONE Stop: 10/19/24 07:00 Last Admin: 10/19/24 09:35 Dose: 1 each Hydralazine HCl (Hydralazine Inj 20 Mg/Ml Vial) 10 mg IV X1 ONE Stop: 10/19/24 09:19 Last Admin: 10/19/24 09:35 Dose: 10 mg Magnesium Sulfate (Magnesium Sulfate Ivpb) 2 gm in 50 mls @ 999 mls/hr IV X1 ONE Stop: 10/19/24 07:39 Last Admin: 10/19/24 09:30 Dose: Not Given Magnesium Sulfate (Magnesium Sulfate Ivpb) 2 gm in 50 mls @ 999 mls/hr IV X1 ONE Stop: 10/19/24 09:32 Magnesium Sulfate (Magnesium Sulfate Ivpb) 2 gm in 50 mls @ 25 mls/hr IV X1 ONE Stop: 10/19/24 11:29 Last Admin: 10/19/24 09:32 Dose: 25 mls/hr Labetalol HCl (Labetalol Inj 5 Mg/Ml Vial 20 Ml) 10 mg IVP X1 ONE Stop: 10/19/24 10:07 Morphine Sulfate (Morphine Sulf Inj 10 Mg/Ml Vial) 2 mg IVP X1 ONE Stop: 10/19/24 07:38 Last Admin: 10/19/24 08:02 Dose: 2 mg Nitroglycerin (Nitroglycerin 0.4 Mg/Hr Patch.Td24) 0.4 mg TOP X1 ONE Stop: 10/19/24 07:38 Last Admin: 10/19/24 07:52 Dose: Not Given Nitroglycerin (Nitroglycerin Oint 2% 1 Inch Packet) 2 inch TOP X1 ONE Stop: 10/19/24 07:40 Last Admin: 10/19/24 08:20 Dose: 2 inch Oseltamivir Phosphate (Oseltamivir 75 Mg Capsule) 75 mg PO X1 ONE Stop: 10/19/24 09:53 Last Admin: 10/19/24 10:35 Dose: 75 mg Assessment & Plan Plan 69-year-old female with past medical history of HFrEF (EF 30 to 35% on 06/2024), CKD stage IIIb, COPD, meth use, hypertension, and breast cancer status post bilateral mastectomy was admitted to the hospital on 10/19/2023 for acute compensated heart failure exacerbation, community-acquired pneumonia (COVID and influenza positive), and hypertensive urgency. #Acute decompensated heart failure exacerbation #HFrEF (EF 30 to 35% 06/2024) ? Patient states that she gets really short of breath with laying flat as well as walking short distances. ? Patient states that this has gotten progressively worse over the past few weeks. ? BNP was greater than 3280 ?Chest x-ray had CHF pattern Plan: ? Lasix 40 mg daily ? Restart carvedilol 12.5 mg twice daily ? Strict ZAKI's ? Fluid restrictions ? Daily weights ? Will continue to monitor #Hypertensive urgency ? Patient came in initially with blood pressure of 218/141 ? Patient received carvedilol 12.5 mg x 1 and 25 mg x 1 in the ED as well as hydralazine 10 mg x 1 in the ED. Plan: ? Will decrease blood pressure by 25% ? Will continue with Lasix 40 mg daily and carvedilol 12.5 mg twice daily ? Will continue to monitor #Community-acquired pneumonia #COVID-positive #Influenza positive #Hx of COPD ? Patient came in with complaints of cough as well as shortness of breath ? Chest/abdomen/pelvis CT that showed left upper lobe pneumonia ? Patient was COVID and influenza A positive in the ED Plan: ? Start patient on Tamiflu (30 mg daily) renally dose [10/19/2024?] ? Start patient on methylprednisolone 40 mg daily [10/19/2024?] ? Start patient on Rocephin and Azithromycin[10/19/2024?] ? DuoNebs every 4 hours ? Will continue monitor #SREE on CKD stage IIIb ? Patient has baseline creatinine of around 2.2 ? Creatinine on admission was 2.4 ? Most likely prerenal in the setting of hypertension and heart failure exacerbation Plan: ? Avoid nephrotoxic agents ? We have those medications ? Will continue to monitor #Transaminitis #Cirrhosis ? Patient came in with AST 113, ALT 102, alkaline phosphatase 184 ? Chest/abdomen/pelvis CT showed cirrhosis ? Likely in the setting of polysubstance use Plan: ? Will continue to monitor #NSTEMI likely type II ? Patient gated with troponins of 0.075 ? Patient was previously seen 1 week ago and troponins were 0.127 indicating that troponins on this admission are most likely residual ? Elevated troponins mostly in the setting also of hypertensive urgency ? EKG did not show any ST changes Plan: ? Will continue to monitor #Polysubstance use ? Patient admitted to using meth and marijuana around 4 to 5 days ago ? U tox was negative Plan: ? Referred to social worker psychiatric ? Counseled the patient on importance of abstaining from illicit drugs Disposition: Patient admitted to telemetry fro CHF exacerbation and PNA Covid/Influenza +, continue steroids, tamiflu and lasix . Diet: Cardiac GI prophylaxis: protonix DVT prophylaxis: lovenox Code:Full code Case disclosed with Attending Dr. Dolan and My senior Dr. Iyer PGY2. Sang Roblero PGY1 Senior Resident Attestation: The patient presented with SOB was found to have AHRF 2/2 CHF exacerbation and COVID/Influenza pneumonia. She was started on ceftriaxone, azithromycin, tamiflu, steroid and lasix. I discussed with and supervised the internal specialist physician involved in the care of this patient. I personally saw and examined the patient and discussed the assessment and plan with the entire medicine team, including my attending. I agree with the assessment and plan as documented above. Drake Iyer MD PGY2 Internal Medicine Attending Provider Attestation/Addendum I reviewed labs, imaging, EKG, home medications and prior available records. Face to face evaluation was performed by me. I have personally examined the patient and discussed assessment and plan with the IM team. I reviewed the resident note and agree with the plan with exceptions as below. Acute hypoxic respiratory failure COVID-19 Left lower lobe pneumonia Acute exacerbation of HFrEF EF 35% COVID-19 Influenza A Non-STEMI History of methamphetamine abuse COPD Started ceftriaxone/azithromycin Oxygen as needed IV Lasix 40 mg Monitor kidney function. Avoid nephrotoxins. Renally dosed medications Resume home BP medications Trend troponin until it peaks DuoNebs IV Deeu-Medrol Counseled the patient regarding the importance of stopping illicit drugs
--- NOTE | 2024-10-19 15:36 | PC.NURSE ---
Dr. Briceño called and notified pts BP is back up to 160's/120's and pt is hannah down to the 40's. No new orders for now. Will call back.
[2024-10-19] MEDS: cefTRIAXone/D5w 1gm IV premix 50 ML IV (15:47)
[2024-10-19] MEDS: AZITHROMYCIN 250 MG TABLET 500 MG PO (15:47)
[2024-10-19] MEDS: POTASSIUM CHLORIDE 20 mEq TABCR PO (15:48)
[2024-10-20] VITALS (18 sets, daily range): BP systolic 133–187; BP diastolic 86–133; PULSE 63–84; RESP 17–99; TEMP 36.2–36.3; O2SAT 90–100; BMI 26.7
[2024-10-20] MEDS: ALBUTEROL/IPRATROPIUM (Duoneb) RT SOL 3 ML NEBU INH ×4 (02:20→22:40)
[2024-10-20] MEDS: HYDROcodone/APAP 5/325 TABLET 1 TAB PO ×2 (05:39→20:20)
[2024-10-20 06:30] LABS: INR 1.2 (0.9-1.3)
[2024-10-20 06:37] LABS: Alanine Aminotransferase 72 U/L (10-49); Albumin, Serum 3.4 gm/dL (3.4-4.8); Albumin/Globulin Ratio 1.3 (1.2-2.2); Alkaline Phosphatase 153 U/L (46-116); Anion Gap 12 (7-16); Aspartate Amino Transferase 29 U/L (0-34); BUN/Creatinine Ratio 30 Ratio (12-20); Bilirubin,Total < 0.2 mg/dL (0.3-1.2); Blood Urea Nitrogen 72 mg/dL (9-23); Calcium 8.2 mg/dL (8.3-10.6); Calcium (Corrected) 8.7 mg/dL (8.5-10.1); Chloride 106 mMol/L (98-107); Creatinine (Component) 2.4 mg/dL (0.6-1.3); Estimated Creatinine Clearance 20.7 mL/min (>60); Globulin 2.7 gm/dL (2.3-3.5); Glucose 126 mg/dL (74-106); Magnesium 1.9 mg/dL (1.6-2.6); Osmolality,Calculated 304 (275-295); Potassium 4.8 mMol/L (3.4-5.1); Sodium 141 mMol/L (136-145); Total Protein 6.1 gm/dL (5.7-8.2); eGFR 21 See Note
[2024-10-20] MEDS: carVEDILOL 12.5 MG TABLET PO ×2 (07:57→17:22)
[2024-10-20] MEDS: amLODIPine BESYLATE 5 MG TABLET 10 MG PO (07:59)
[2024-10-20] MEDS: cefTRIAXone/D5w 1gm IV premix 50 ML IV (08:39)
[2024-10-20] MEDS: AZITHROMYCIN 250 MG TABLET 500 MG PO (08:40)
[2024-10-20] MEDS: PANTOPRAZOLE 40 MG TABLET PO (08:41)
[2024-10-20 09:15] LABS: Basophils # (Auto) 0.1 Thou/mm3 (0.0-0.2); Basophils % (Auto) 1 % (0-2.5); Eosinophils % (Auto) 0 % (0-10); Hematocrit 40.2 % (36.0-46.0); Immature Granulocytes % (Auto) 1 % (0-0); Immature Granulocytes Auto 0.08 Thou/mm3 (0.00-0.00); Lymphocytes # (Auto) 1.2 Thou/mm3 (1.0-4.8); Lymphocytes % (Auto) 12 % (10-50); Mean Corpuscular HGB Conc 32.3 g/dl (31.0-37.0); Mean Corpuscular Hemoglobin 31.3 pg (25.0-35.0); Mean Corpuscular Volume 97 fL (80-100); Monocytes # (Auto) 0.4 Thou/mm3 (0.0-0.8); Monocytes % (Auto) 4 % (0-12); Neutrophils # (Auto) 8.5 Thou/mm3 (1.8-7.7); Neutrophils % (Auto) 83 % (37-80); Nucleated Red Blood Cell % 0 /100 WBC (0); Platelet Count 305 Thou/mm3 (140-440); RDW Standard Deviation 50.1 fL (36.4-46.3); Red Blood Count 4.15 Miln/mm3 (4.00-5.20); White Blood Count 10.3 Thou/mm3 (3.6-11.0)
[2024-10-20] MEDS: OSELTAMIVIR 30 MG CAPSULE PO (09:41)
[2024-10-20] MEDS: FUROSEMIDE INJ 10 MG/ML 4ML VIAL 40 MG IVP (09:41)
[2024-10-20] MEDS: hydrALAZINE HCL 25 MG TABLET 50 MG PO ×2 (10:32→22:38)
--- NOTE | 2024-10-20 13:31 | ESPR_ITS ---
Documentation for date of: 10/20/24 Subjective Subjective Interval history: Patient was seen at bedside this morning. Patient was pretty sentimental today as she lost her dog. Patient's blood pressure was still very elevated today in the 170s over 90s/100s. Added amlodipine 10 mg daily and hydralazine 50 mg 3 times daily for better BP control. Patient's breathing has improved, but still decreased on the lower lobes. Will continue to monitor. Exam Vital Signs Temp Pulse Resp BP Pulse Ox O2 Del Method O2 Flow Rate 97.3 F 65 24 H 159/104 H 92 L Room Air 2 10/20/24 12:00 10/20/24 12:00 10/20/24 12:00 10/20/24 12:00 10/20/24 12:10/20/24 12:10/19/24 17:06 Narrative Exam General: A/O x3, sentimental, but in no acute distress, disheveled Eyes: PERRL, EOMI. Anicteric, vision grossly intact. Ears: No ear pain, no ear discharge, Hearing grossly intact. Nose: No nasal discharge. Mouth/Throat: Dry mucous membranes, no redness, no lesions. Neck: Neck supple, non-tender, no cervical lymphadenopathy. Lungs: Decreased breath ofelia in the lower lobes, but clear in the upper lobes, No accessory muscle use. Cardio: Normal S1/S2, regular rhythm, no murmurs, no JVD. Abdomen: Soft, non-tender, no palpable masses, peristalsis present, no guarding or rebound. Extremities: Symmetrical, no significant deformities, 1+ peripheral edema improving , non-tender, peripheral pulses presents. Skin: No rashes, no lesions, warm to touch. Neuro: No focal neurological deficits. motor and sensory intact Psych: Sentimental Objective Labs 10/20/24 08:37 10/20/24 04:33 Labs: Laboratory Results - last 24 hr 10/20/24 10/20/24 04:33 08:37 WBC 10.3 RBC 4.15 Hgb 13.0 Hct 40.2 MCV 97 MCH 31.3 MCHC 32.3 RDW Std Deviation 50.1 H Plt Count 305 Neut % (Auto) 83 H Lymph % (Auto) 12 [place] % (Auto) 4 Eos % (Auto) 0 Baso % (Auto) 1 Neut # (Auto) 8.5 H Lymph # (Auto) 1.2 [place] # (Auto) 0.4 Eos # (Auto) 0.0 Baso # (Auto) 0.1 Immature Gran # (Auto) 0.08 H Absolute Nucleated RBC 0.00 Immature Gran % 1 H Nucleated RBC % 0 PT 13.0 H INR 1.2 Sodium 141 Potassium 4.8 D Chloride 106 Carbon Dioxide 23.0 Anion Gap 12 BUN 72 H Creatinine 2.4 H Estim Creat Clear Calc 20.7 L eGFR 21 L BUN/Creatinine Ratio 30 H Glucose 126 H Calculated Osmolality 304 H Calcium 8.2 L Corrected Calcium 8.7 Magnesium 1.9 Total Bilirubin < 0.2 L AST 29 ALT 72 H Alkaline Phosphatase 153 H D Total Protein 6.1 Albumin 3.4 Globulin 2.7 Albumin/Globulin Ratio 1.3 Quality Measures Quality Measures none Advance care planning discussed with:: patient Assessment & Plan Assessment Current Active Medications: Generic Name Dose Route Start Last Admin Trade Name Freq PRN Reason Stop Dose Admin Acetaminophen 650 mg 10/20/24 06:49 Acetaminophen 325 Mg Tablet PO 11/18/24 11:25 Q6H PRN pain 1-3 and Fever >100.4 Hydrocodone Bitart/Acetaminophen 1 tab 10/19/24 11:26 10/20/24 05:39 Hydrocodone/Apap 5/325 Tablet PO 10/24/24 11:25 1 tab Q4HR PRN Administration PAIN SCALE 4-10(Mod-Sev Albuterol/Ipratropium 3 ml 10/19/24 15:00 10/20/24 10:16 Albuterol/Ipratropium (Duoneb) Rt Dee 3 Ml Nebu INH 11/18/24 14:59 Not Given Q4HRRT KENNEDY Amlodipine Besylate 10 mg 10/20/24 09:00 10/20/24 07:59 Amlodipine Besylate 5 Mg Tablet PO 11/19/24 08:59 10 mg QDAY KENNEDY Administration Azithromycin 500 mg 10/19/24 14:30 10/20/24 08:40 Azithromycin 250 Mg Tablet PO 10/26/24 14:29 500 mg QDAY KENNEDY Administration Carvedilol 12.5 mg 10/20/24 09:00 10/20/24 07:57 Carvedilol 12.5 Mg Tablet PO 11/19/24 08:59 12.5 mg BIDWM KENNEDY Administration Enoxaparin Sodium 30 mg 10/20/24 09:00 10/20/24 08:50 Enoxaparin Sod Inj 30 Mg/0.3 Ml Syringe SC 11/03/24 08:59 Not Given QDAY KENNEDY Protocol Furosemide 40 mg 10/20/24 09:00 10/20/24 09:41 Furosemide Inj 10 Mg/Ml 4ml Vial IVP 11/19/24 08:59 40 mg QDAY KENNEDY Administration Hydralazine HCl 50 mg 10/20/24 10:00 10/20/24 10:32 Hydralazine Hcl 25 Mg Tablet PO 11/19/24 09:59 50 mg TID KENNEDY Administration Ceftriaxone Sodium/Dextrose 50 mls @ 100 mls/hr 10/19/24 14:27 10/20/24 08:39 Rocephin/D5w 1gm Iv Premix IV 10/26/24 14:26 100 mls/hr QDAY KENNEDY Administration Methylprednisolone Sodium Succinate 40 mg 10/19/24 11:45 10/20/24 08:40 Methylprednisolone Sod Succ 40 Mg Vial IVP 10/26/24 11:44 40 mg QDAY KENNEDY Administration Ondansetron HCl 4 mg 10/19/24 11:26 Ondansetron Inj 2 Mg/Ml Inj 2 Ml IV 11/18/24 11:25 Q6H PRN NAUSEA OR VOMITING Protocol Oseltamivir Phosphate 30 mg 10/20/24 09:00 10/20/24 09:41 Oseltamivir 30 Mg Capsule PO 10/24/24 08:59 30 mg QDAY KENNEDY Administration Pantoprazole Sodium 40 mg 10/20/24 09:00 10/20/24 08:41 Pantoprazole 40 Mg Tablet PO 11/19/24 08:59 40 mg QDAY KENNEDY Administration Sennosides 1 tab 10/19/24 11:26 Senna Tablet PO 11/18/24 11:25 QDAY PRN constipation Protocol Plan 69-year-old female with past medical history of HFrEF (EF 30 to 35% on 06/2024), CKD stage IIIb, COPD, meth use, hypertension, and breast cancer status post bilateral mastectomy was admitted to the hospital on 10/19/2023 for acute compensated heart failure exacerbation, community-acquired pneumonia (COVID and influenza positive), and hypertensive urgency. #Hypertensive urgency ? Patient came in initially with blood pressure of 218/141 ? Patient received carvedilol 12.5 mg x 1 and 25 mg x 1 in the ED as well as hydralazine 10 mg x 1 in the ED. Plan: ? Added Amlodipine 10mg qday and hydralazine 50mg TID for better BP control ? Will continue with Lasix 40 mg daily and carvedilol 12.5 mg twice daily ? Will continue to monitor #Acute decompensated heart failure exacerbation #HFrEF (EF 30 to 35% 06/2024) ? Patient states that she gets really short of breath with laying flat as well as walking short distances. ? Patient states that this has gotten progressively worse over the past few weeks. ? BNP was greater than 3280 ?Chest x-ray had CHF pattern Plan: ? Lasix 40 mg daily ? Continue carvedilol 12.5 mg twice daily ? Strict ZAKI's ? Fluid restrictions ? Daily weights ? Will continue to monitor #Acute hypoxic Respiratory Failure 10/23 #Community-acquired pneumonia #COVID-positive #Influenza positive #Hx of COPD ? Patient came in with complaints of cough as well as shortness of breath ? Chest/abdomen/pelvis CT that showed left upper lobe pneumonia ? Patient was COVID and influenza A positive in the ED Plan: ? Continue patient on Tamiflu (30 mg daily) renally dose [10/19/2024?] ? Continue patient on methylprednisolone 40 mg daily [10/19/2024?] ? Continue patient on Rocephin and Azithromycin[10/19/2024?] ? DuoNebs every 4 hours ? Will continue monitor #SREE on CKD stage IIIb ? Patient has baseline creatinine of around 2.2 ? Creatinine on admission was 2.4 and remains stable at 2.4 today ? Most likely prerenal in the setting of hypertension and heart failure exacerbation Plan: ? Avoid nephrotoxic agents ? We have those medications ? Will continue to monitor #Transaminitis #Cirrhosis ? Patient came in with AST 113, ALT 102, alkaline phosphatase 184 ? Chest/abdomen/pelvis CT showed cirrhosis ? Likely in the setting of polysubstance use - AST 29, ALT 72, ALP 153 today Plan: ? Will continue to monitor #NSTEMI likely type II ? Patient gated with troponins of 0.075 ? Patient was previously seen 1 week ago and troponins were 0.127 indicating that troponins on this admission are most likely residual ? Elevated troponins mostly in the setting also of hypertensive urgency ? EKG did not show any ST changes Plan: ? Will continue to monitor #Polysubstance use ? Patient admitted to using meth and marijuana around 4 to 5 days ago ? U tox was negative Plan: ? Referred to psychiatric social worker supervisor ? Counseled the patient on importance of abstaining from illicit drugs Disposition: Patient admitted to telemetry fro CHF exacerbation and PNA Covid/Influenza +, continue steroids, tamiflu and lasix, added hydralazine and hydralazine for BP control. Diet: Cardiac GI prophylaxis: protonix DVT prophylaxis: lovenox Code:Full code Case disclosed with Attending Dr. Dolan and my senior Dr. Iyer PGY2 Sang Roblero PGY1 Senior Resident Attestation: 69-year-old female with past medical history of HFrEF (EF 30 to 35% on 06/2024), CKD stage IIIb, COPD, meth use, hypertension, and breast cancer status post bilateral mastectomy was admitted to the hospital on 10/19/2023 for acute compensated heart failure exacerbation, community-acquired pneumonia (COVID and influenza positive), and hypertensive urgency. We will start the patient on amlodipine 10 mg daily and hydralazine 50 Mg 3 times daily, continue with carvedilol 12.5 Mg twice daily. We will continue to diurese the patient, and he is improving significantly. We will continue with Tamiflu 30 Mg daily renally dosed, Rocephin and azithromycin for CAP. Will continue to monitor renal panel, and possibly discharge him tomorrow if he is clinically stable. I discussed with and supervised the data analysis intern physician involved in the care of this patient. I personally saw and examined the patient and discussed the assessment and plan with the entire medicine team, including my attending. I agree with the assessment and plan as documented above. Drake Iyer MD PGY2 Internal Medicine Attending Provider Attestation/Addendum I reviewed labs, imaging, EKG, home medications and prior available records. Face to face evaluation was performed by me. I have personally examined the patient and discussed assessment and plan with the IM team. I reviewed the resident note and agree with the plan with exceptions as below. Acute hypoxic respiratory failure COVID-19 Left lower lobe pneumonia Acute exacerbation of HFrEF EF 35% Hypertensive crisis COVID-19 Influenza A Non-STEMI History of methamphetamine abuse COPD transaminitis Started ceftriaxone/azithromycin Oxygen as needed IV Lasix 40 mg Monitor kidney function. Avoid nephrotoxins. Renally dosed medications BP is still uncontrolled. Resumed home amlodipine and Coreg. Added hydralazine 50 mg 3 times daily. Trend troponin until it peaks: Peaked DuoNebs IV Solu-Medrol Counseled the patient regarding the importance of stopping illicit drugs LFTs are downtrending. Monitor LFTs May discharge tomorrow if BP improves and oxygen needs are stable
--- NOTE | 2024-10-20 17:38 | PC.NURSE ---
Pt blood pressure 187/118. Made MD aware and let MD know pt refused 14:00 Hydralazine. Administered Pt's 17:[address] Mathew who was covering for Dr. Briceño said to wait an hour and retake the blood pressure. If still elevated, contact MD again.
[2024-10-21] VITALS (19 sets, daily range): BP systolic 138–195; BP diastolic 72–126; PULSE 64–86; RESP 18–95; TEMP 36.1–36.8; O2SAT 92–99; BMI 26.7
[2024-10-21 05:29] LABS: Basophils # (Auto) 0.1 Thou/mm3 (0.0-0.2); Basophils % (Auto) 1 % (0-2.5); Eosinophils % (Auto) 0 % (0-10); Hematocrit 40.2 % (36.0-46.0); Immature Granulocytes % (Auto) 1 % (0-0); Immature Granulocytes Auto 0.08 Thou/mm3 (0.00-0.00); Lymphocytes # (Auto) 1.2 Thou/mm3 (1.0-4.8); Lymphocytes % (Auto) 9 % (10-50); Mean Corpuscular HGB Conc 32.3 g/dl (31.0-37.0); Mean Corpuscular Hemoglobin 31.3 pg (25.0-35.0); Mean Corpuscular Volume 97 fL (80-100); Monocytes # (Auto) 0.5 Thou/mm3 (0.0-0.8); Monocytes % (Auto) 4 % (0-12); Neutrophils # (Auto) 10.9 Thou/mm3 (1.8-7.7); Neutrophils % (Auto) 86 % (37-80); Nucleated Red Blood Cell % 0 /100 WBC (0); Platelet Count 304 Thou/mm3 (140-440); RDW Standard Deviation 49.1 fL (36.4-46.3); Red Blood Count 4.15 Miln/mm3 (4.00-5.20); White Blood Count 12.7 Thou/mm3 (3.6-11.0)
[2024-10-21] MEDS: hydrALAZINE HCL 25 MG TABLET 50 MG PO ×2 (05:31→11:03)
[2024-10-21 05:39] LABS: INR 1.2 (0.9-1.3)
[2024-10-21 06:15] LABS: Alanine Aminotransferase 51 U/L (10-49); Albumin, Serum 3.2 gm/dL (3.4-4.8); Albumin/Globulin Ratio 1.2 (1.2-2.2); Alkaline Phosphatase 140 U/L (46-116); Anion Gap 11 (7-16); Aspartate Amino Transferase 12 U/L (0-34); BUN/Creatinine Ratio 28 Ratio (12-20); Bilirubin,Total < 0.2 mg/dL (0.3-1.2); Blood Urea Nitrogen 86 mg/dL (9-23); Calcium 8.2 mg/dL (8.3-10.6); Calcium (Corrected) 8.8 mg/dL (8.5-10.1); Carbon Dioxide 23.8 mMol/L (20.0-31.0); Chloride 109 mMol/L (98-107); Creatinine (Component) 3.1 mg/dL (0.6-1.3); Estimated Creatinine Clearance 16.1 mL/min (>60); Globulin 2.7 gm/dL (2.3-3.5); Glucose 168 mg/dL (74-106); Magnesium 1.6 mg/dL (1.6-2.6); Osmolality,Calculated 317 (275-295); Potassium 4.1 mMol/L (3.4-5.1); Sodium 144 mMol/L (136-145); Total Protein 5.9 gm/dL (5.7-8.2); eGFR 15 See Note
[2024-10-21] MEDS: ALBUTEROL/IPRATROPIUM (Duoneb) RT SOL 3 ML NEBU INH ×4 (07:54→18:50)
--- NOTE | 2024-10-21 07:55 | PC.NURSE ---
Pt Blood pressure 195/126. Contacted Dr. Briceño and made aware. said to give the morning blood pressure meds and recheck.
[2024-10-21] MEDS: OSELTAMIVIR 30 MG CAPSULE PO (08:08)
[2024-10-21] MEDS: cefTRIAXone/D5w 1gm IV premix 50 ML IV (08:08)
[2024-10-21] MEDS: carVEDILOL 12.5 MG TABLET PO ×2 (08:09→12:46)
[2024-10-21] MEDS: amLODIPine BESYLATE 5 MG TABLET 10 MG PO (08:09)
[2024-10-21] MEDS: AZITHROMYCIN 250 MG TABLET 500 MG PO (08:09)
[2024-10-21] MEDS: ENOXAPARIN SOD INJ 30 MG/0.3 ML SYRINGE SC (08:10)
[2024-10-21] MEDS: PANTOPRAZOLE 40 MG TABLET PO (08:10)
--- NOTE | 2024-10-21 10:01 | ESPR_ITS ---
<Statement entered by Jimy Gimenez MD - 10/25/24 15:40> I reviewed above note and agree with findings and plans. I have also personally examined the patient with medicine team and went over assessment and plan with medical team including internet application developer and resident physician. Documentation for date of: 10/21/24 Subjective Subjective Interval history: Patient was seen at bedside this morning. No overnight events. Patient blood pressure continues to be significantly elevated therefore we have increased her hydralazine to 100 mg 3 times daily as well as her carvedilol to 25 mg twice daily. Patient still complaining of some cough, but had been refusing some of her breathing treatments yesterday. Patient's creatinine did go up to 3.1 from 2.4 therefore nephrology was consulted and her lasix was discontinued. Gave 1L maintenance fluids and fluid restrictions changed to 2000 mL. No other complaints at this time. Exam Vital Signs Temp Pulse Resp BP Pulse Ox O2 Del Method O2 Flow Rate 98.2 F 86 22 H 195/126 H 93 L Room Air 2 10/21/24 08:00 10/21/24 08:09 10/21/24 08:00 10/21/24 08:09 10/21/24 08:00 10/21/24 08:00 10/19/24 17:06 Narrative Exam General: A/O x3, irritable, but in no acute distress, disheveled Eyes: PERRL, EOMI. Anicteric, vision grossly intact. Ears: No ear pain, no ear discharge, Hearing grossly intact. Nose: No nasal discharge. Mouth/Throat: Dry mucous membranes, no redness, no lesions. Neck: Neck supple, non-tender, no cervical lymphadenopathy. Lungs: Wheezing expiratory, No accessory muscle use. Cardio: Normal S1/S2, regular rhythm, no murmurs, no JVD. Abdomen: Soft, non-tender, no palpable masses, peristalsis present, no guarding or rebound. Extremities: Symmetrical, no significant deformities, 1+ peripheral edema improving , non-tender, peripheral pulses presents. Skin: No rashes, no lesions, warm to touch. Neuro: No focal neurological deficits. motor and sensory intact Psych: irritable Objective Labs 10/21/24 04:36 10/21/24 04:36 Labs: Laboratory Results - last 24 hr 10/21/24 04:36 WBC 12.7 H RBC 4.15 Hgb 13.0 Hct 40.2 MCV 97 MCH 31.3 MCHC 32.3 RDW Std Deviation 49.1 H Plt Count 304 Neut % (Auto) 86 H Lymph % (Auto) 9 L [place] % (Auto) 4 Eos % (Auto) 0 Baso % (Auto) 1 Neut # (Auto) 10.9 H Lymph # (Auto) 1.2 [place] # (Auto) 0.5 Eos # (Auto) 0.0 Baso # (Auto) 0.1 Immature Gran # (Auto) 0.08 H Absolute Nucleated RBC 0.00 Immature Gran % 1 H Nucleated RBC % 0 PT 13.0 H INR 1.2 Sodium 144 Potassium 4.1 D Chloride 109 H Carbon Dioxide 23.8 Anion Gap 11 BUN 86 H Creatinine 3.1 H D Estim Creat Clear Calc 16.1 L eGFR 15 L BUN/Creatinine Ratio 28 H Glucose 168 H Calculated Osmolality 317 H Calcium 8.2 L Corrected Calcium 8.8 Magnesium 1.6 Total Bilirubin < 0.2 L AST 12 ALT 51 H Alkaline Phosphatase 140 H Total Protein 5.9 Albumin 3.2 L Globulin 2.7 Albumin/Globulin Ratio 1.2 Quality Measures Quality Measures none Advance care planning discussed with:: patient Assessment & Plan Assessment Current Active Medications: Generic Name Dose Route Start Last Admin Trade Name Freq PRN Reason Stop Dose Admin Acetaminophen 650 mg 10/20/24 06:49 Acetaminophen 325 Mg Tablet PO 11/18/24 11:25 Q6H PRN pain 1-3 and Fever >100.4 Hydrocodone Bitart/Acetaminophen 1 tab 10/19/24 11:26 10/20/24 05:39 Hydrocodone/Apap 5/325 Tablet PO 10/24/24 11:25 1 tab Q4HR PRN Administration PAIN SCALE 4-10(Mod-Sev Albuterol/Ipratropium 3 ml 10/19/24 15:00 10/21/24 07:54 Albuterol/Ipratropium (Duoneb) Rt Dee 3 Ml Nebu INH 11/18/24 14:59 3 ml Q4HRRT KENNEDY Administration Amlodipine Besylate 10 mg 10/20/24 09:00 10/21/24 08:09 Amlodipine Besylate 5 Mg Tablet PO 11/19/24 08:59 10 mg QDAY KENNEDY Administration Azithromycin 500 mg 10/19/24 14:30 10/21/24 08:09 Azithromycin 250 Mg Tablet PO 10/26/24 14:29 500 mg QDAY KENNEDY Administration Carvedilol 12.5 mg 10/20/24 09:00 10/21/24 08:09 Carvedilol 12.5 Mg Tablet PO 11/19/24 08:59 12.5 mg BIDWM KENNEDY Administration Enoxaparin Sodium 30 mg 10/20/24 09:00 10/21/24 08:10 Enoxaparin Sod Inj 30 Mg/0.3 Ml Syringe SC 11/03/24 08:59 30 mg QDAY KENNEDY Administration Protocol Furosemide 40 mg 10/20/24 09:00 10/20/24 09:41 Furosemide Inj 10 Mg/Ml 4ml Vial IVP 11/19/24 08:59 40 mg QDAY KENNEDY Administration Hydralazine HCl 50 mg 10/20/24 10:00 10/21/24 05:31 Hydralazine Hcl 25 Mg Tablet PO 11/19/24 09:59 50 mg TID KENNEDY Administration Ceftriaxone Sodium/Dextrose 50 mls @ 100 mls/hr 10/19/24 14:27 10/21/24 08:08 Rocephin/D5w 1gm Iv Premix IV 10/26/24 14:26 100 mls/hr QDAY KENNEDY Administration Methylprednisolone Sodium Succinate 40 mg 10/19/24 11:45 10/21/24 08:09 Methylprednisolone Sod Succ 40 Mg Vial IVP 10/26/24 11:44 40 mg QDAY KENNEDY Administration Ondansetron HCl 4 mg 10/19/24 11:26 Ondansetron Inj 2 Mg/Ml Inj 2 Ml IV 11/18/24 11:25 Q6H PRN NAUSEA OR VOMITING Protocol Oseltamivir Phosphate 30 mg 10/20/24 09:00 10/21/24 08:08 Oseltamivir 30 Mg Capsule PO 10/24/24 08:59 30 mg QDAY KENNEDY Administration Pantoprazole Sodium 40 mg 10/20/24 09:00 10/21/24 08:10 Pantoprazole 40 Mg Tablet PO 11/19/24 08:59 40 mg QDAY KENNEDY Administration Sennosides 1 tab 10/19/24 11:26 Senna Tablet PO 11/18/24 11:25 QDAY PRN constipation Protocol Plan 69-year-old female with past medical history of HFrEF (EF 30 to 35% on 06/2024), CKD stage IIIb, COPD, meth use, hypertension, and breast cancer status post bilateral mastectomy was admitted to the hospital on 10/19/2023 for acute compensated heart failure exacerbation, community-acquired pneumonia (COVID and influenza positive), and hypertensive urgency. #Hypertensive emergency #SREE on CKD stage IIIb ? Patient has baseline creatinine of around 2.2 ? Creatinine on admission was 2.4 and remains stable at 2.4 today ? Most likely prerenal in the setting of hypertension and heart failure exacerbation ? Patient came in initially with blood pressure of 218/141 ? Patient received carvedilol 12.5 mg x 1 and 25 mg x 1 in the ED as well as hydralazine 10 mg x 1 in the ED. ?Patient continues to have fairly elevated blood pressure at this time. ? Patient kidney function continues to deteriorate and she most likely went into ischemic ATN Plan: ? Continue Amlodipine 10mg qday and increase hydralazine to 100mg TID and carvedilol to 25 mg twice daily ? Will discontinue with Lasix -1L maintenance IV fluids and fluid restriction to 2L ? Avoid nephrotoxic agents ? We have those medications ? Will continue to monitor -nephrology consulted appreciate recommendations ? Will continue to monitor #Acute decompensated heart failure exacerbation #HFrEF (EF 30 to 35% 06/2024) ? Patient states that she gets really short of breath with laying flat as well as walking short distances. ? Patient states that this has gotten progressively worse over the past few weeks. ? BNP was greater than 3280 ?Chest x-ray had CHF pattern Plan: ? Stop Lasix 40 mg in the setting of worsening SREE ? Continue carvedilol 25 mg twice daily ? Strict ZAKI's ? Fluid restrictions ? Daily weights ? Will continue to monitor #Acute hypoxic Respiratory Failure 2/ #Community-acquired pneumonia #COVID-positive #Influenza positive #Hx of COPD ? Patient came in with complaints of cough as well as shortness of breath ? Chest/abdomen/pelvis CT that showed left upper lobe pneumonia ? Patient was COVID and influenza A positive in the ED Plan: ? Continue patient on Tamiflu (30 mg daily) renally dose [10/19/2024?] ? Continue patient on methylprednisolone 40 mg daily [10/19/2024?] ? Continue patient on Rocephin and Azithromycin[10/19/2024?] ? DuoNebs every 4 hours ? Will continue monitor #Transaminitis #Cirrhosis ? Patient came in with AST 113, ALT 102, alkaline phosphatase 184 ? Chest/abdomen/pelvis CT showed cirrhosis ? Likely in the setting of polysubstance use - AST 12, ALT 51, ALP 140 today Plan: ? Will continue to monitor #NSTEMI likely type II ? Patient gated with troponins of 0.075 ? Patient was previously seen 1 week ago and troponins were 0.127 indicating that troponins on this admission are most likely residual ? Elevated troponins mostly in the setting also of hypertensive urgency ? EKG did not show any ST changes Plan: ? Will continue to monitor #Polysubstance use ? Patient admitted to using meth and marijuana around 4 to 5 days ago ? U tox was negative Plan: ? Referred to social science research assistant ? Counseled the patient on importance of abstaining from illicit drugs Disposition: Patient admitted to telemetry fro CHF exacerbation and PNA Covid/Influenza +, continue steroids, tamiflu, increase hydralazineto 100mg TID and carvedilol to 25 mg BID BP control. Diet: Cardiac GI prophylaxis: protonix DVT prophylaxis: lovenox Code:Full code Case disclosed with Attending Dr. Gimenez and my senior Dr. Iyer PGY2 Sang Roblero PGY1 Senior Resident Attestation: 69-year-old female with past medical history of HFrEF (EF 30 to 35% on 06/2024), CKD stage IIIb, COPD, meth use, hypertension, and breast cancer status post bilateral mastectomy was admitted to the hospital on 10/19/2023 for acute compensated heart failure exacerbation, community-acquired pneumonia (COVID and influenza positive), and hypertensive urgency. The patient reported doing well, was saturating 94 to 95% on room air. Her physical examination was negative for any pedal edema, crackles over lung field or any JVD. She seemed pretty dry. Her creatinine went up to 3.1. Nephrology consultation was done with Dr. Pulido. She recommended 1 L IV fluid bolus, and fluid restriction was placed to 2 L daily. Will continue to monitor her closely, and if her kidney function improves by tomorrow she can be discharged home. I discussed with and supervised the internet application developer physician involved in the care of this patient. I personally saw and examined the patient and discussed the assessment and plan with the entire medicine team, including my attending. I agree with the assessment and plan as documented above. Drake Iyer MD PGY2 Internal Medicine
--- NOTE | 2024-10-21 11:57 | PD.RESCONSUL ---
HPI Data of Consult Consult date: 10/21/24 Requesting Physician: Kobe Dolan MD Admitting Provider: Kobe Dolan MD Attending Provider: Kobe Dolan MD Primary Care Provider: Cassidy Porras PA-C Consult Narrative Reason for consult: SREE History of present illness: Johana Freed is a 69-year-old female with PMHx of HFrEF (EF 30 to 35%, 06/2024), CKD stage IV/V, COPD, hypertension, breast cancer status post bilateral mastectomy, and history of methamphetamine use who presented on 10/19 for progressive shortness of breath. She states that symptoms started a few weeks ago with associated cough, but no bodyaches, fever, chills, loose bowel movements. Also denies recent sick contacts. 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 Continues to use methamphetamine, but states that she has been trying to quit. Of note, patient was in ED on 10/13 for similar symptoms as she ran out of her Lasix and was thus discharged with a month supply. Additionally, patient was discharged in June 2024 for CHF exacerbation. At that time, echo showed EF of 30 to 35%, grade 2/3 diastolic dysfunction, RVSP 62 mmHg. renal ultrasound showed small kidneys bilaterally with renal cortical thinning as well as moderate bilateral renal parenchymal scar remission. In ED, BP 218/141, otherwise vital stable. CBC unremarkable. BUN 73, creatinine 2.4 (baseline 2.2), GFR 21, AST 113, ALT 102, troponin 0.075, BNP > 3200. UA: 3+ protein, 3+ glucose, 2+ blood, 49 RBC, no bacteria. U tox negative. CXR: Mild to moderate CHF. CT C/A/P: Left upper lobe pneumonia, significant bilateral renal parenchymal scar formation, cirrhosis. CT head: Negative. Given carvedilol, DuoNebs, Lasix, hydralazine, nitroglycerin, Tamiflu. 10/21: Seen and examined at bedside in telemetry, resting comfortably in bed. No acute overnight events reported. Noted to have an increase in creatinine from 2.4 to 3.1 overnight while on Lasix 40 mg IV daily, that was then discontinued by primary team today. Notified by nursing staff that I/O may be inaccurate as patient frequently dumps urine. However, patient states that she has been urinating frequently. Recommend to hold fluid restrictions, give 1 L IVF, and to hold lasix for total of 2 days and reassess. cc:: cc: Kobe Dolan MD Review of Systems Review of Systems Systems Reviewed: All systems reviewed, normal except as documented Narrative Review of Systems: GENERAL: Denies fever/chills or diaphoresis. HEENT: Denies headaches or visual changes. Denies discharge. Neuro: Denies unusual weakness or difficulty speaking. CARDIO: as above. PULM: as above. GI: Denies abdominal pain, N/V/C/D. Reports having BMs. URO: Denies buring/itching/pain/urinary changes. MSK/EXT/SKIN: Denies joint/skeletal/muschle pain, issues/changes in upper or lower extremities, itchiness, or superficial pain. PSYCH: Cooperative, pleasant mood & affect. The rest of the review of systems is otherwise negative. Exam Vital Signs Temp Pulse Resp BP Pulse Ox O2 Del Method O2 Flow Rate 97.6 F 77 20 159/94 H 93 L Room Air 2 10/21/24 11:51 10/21/24 11:51 10/21/24 11:51 10/21/24 11:51 10/21/24 11:51 10/21/24 11:51 10/19/24 17:06 Narrative Exam General: AOx3, no acute distress, able to speak full sentences HEENT: NC/AT, mucous membranes dry, bilateral sclera anicteric Cardiovascular: regular rate and rhythm, S1/S2 present, no murmurs appreciated Pulmonary: clear to auscultation bilaterally, no rales/rhonchi/wheezes Abdominal: soft, non-tender, non-distended, no rebound/guarding, normal bowel sounds present Musculoskeletal: minimal bilateral lower extremity pitting edema, normal ROM Skin: warm and dry, intact, no rashes Neuro: CN II-XII intact, no focal deficits Results Labs 10/22/24 04:55 10/22/24 04:55 Labs: Short CBC 10/21/24 Range/Units 04:36 WBC 12.7 H (3.6-11.0) Thou/mm3 Hgb 13.0 (12.0-16.0) g/dL Hct 40.2 (36.0-46.0) % Plt Count 304 (140-440) Thou/mm3 BMP 10/21/24 04:36 Sodium 144 Potassium 4.1 D Chloride 109 H Carbon Dioxide 23.8 BUN 86 H Creatinine 3.1 H D Glucose 168 H Calcium 8.2 L Liver Function 10/21/24 Range/Units 04:36 Total Bilirubin < 0.2 L (0.3-1.2) mg/dL AST 12 (0-34) U/L ALT 51 H (10-49) U/L Alkaline Phosphatase 140 H (46-116) U/L Albumin 3.2 L (3.4-4.8) gm/dL Quality Measures Quality Measures none Advance care planning discussed with:: patient Medications Home Medications and Allergies Home Medications ?Medication ?Instructions ?Recorded ?Confirmed ?Type bupropion HCl 150 mg tablet,12 hr 150 mg PO BID 10/19/23 10/19/23 History sustained-release tolterodine 4 mg capsule,extended 4 mg PO QDAY 10/19/23 10/19/23 History release 24 hr Allergies Allergy/AdvReac Type Severity Reaction Status Date / Time iodine Allergy Severe Rash Verified 07/23/24 13:17 Visit Medications Acetaminophen (Acetaminophen 325 Mg Tablet) 650 mg PO Q6H PRN PRN Reason: pain 1-3 and Fever >100.4 Stop: 11/18/24 11:25 Hydrocodone Bitart/Acetaminophen (Hydrocodone/Apap 5/325 Tablet) 1 tab PO Q4HR PRN PRN Reason: PAIN SCALE 4-10(Mod-Sev Stop: 10/24/24 11:25 Last Admin: 10/20/24 05:39 Dose: 1 tab Albuterol/Ipratropium (Albuterol/Ipratropium (Duoneb) Rt Dee 3 Ml Nebu) 3 ml INH Q4HRRT [facility] Stop: 11/18/24 14:59 Last Admin: 10/21/24 10:22 Dose: 3 ml Amlodipine Besylate (Amlodipine Besylate 5 Mg Tablet) 10 mg PO QDAY [facility] Stop: 11/19/24 08:59 Last Admin: 10/21/24 08:09 Dose: 10 mg Azithromycin (Azithromycin 250 Mg Tablet) 500 mg PO QDAY [facility] Stop: 10/26/24 14:29 Last Admin: 10/21/24 08:09 Dose: 500 mg Carvedilol (Carvedilol 12.5 Mg Tablet) 12.5 mg PO BIDWM [facility] Stop: 11/19/24 08:59 Last Admin: 10/21/24 08:09 Dose: 12.5 mg Enoxaparin Sodium (Enoxaparin Sod Inj 30 Mg/0.3 Ml Syringe) 30 mg SC QDAY [facility]; Protocol Stop: 11/03/24 08:59 Last Admin: 10/21/24 08:10 Dose: 30 mg Hydralazine HCl (Hydralazine Hcl 25 Mg Tablet) 100 mg PO TID [facility] Stop: 11/20/24 13:59 Ceftriaxone Sodium/Dextrose (Rocephin/D5w 1gm Iv Premix) 50 mls @ 100 mls/hr IV QDAY [facility] Stop: 10/26/24 14:26 Last Admin: 10/21/24 08:08 Dose: 100 mls/hr Methylprednisolone Sodium Succinate (Methylprednisolone Sod Succ 40 Mg Vial) 40 mg IVP QDAY [facility] Stop: 10/26/24 11:44 Last Admin: 10/21/24 08:09 Dose: 40 mg Ondansetron HCl (Ondansetron Inj 2 Mg/Ml Inj 2 Ml) 4 mg IV Q6H PRN; Protocol PRN Reason: NAUSEA OR VOMITING Stop: 11/18/24 11:25 Oseltamivir Phosphate (Oseltamivir 30 Mg Capsule) 30 mg PO QDAY [facility] Stop: 10/24/24 08:59 Last Admin: 10/21/24 08:08 Dose: 30 mg Pantoprazole Sodium (Pantoprazole 40 Mg Tablet) 40 mg PO QDAY [facility] Stop: 11/19/24 08:59 Last Admin: 10/21/24 08:10 Dose: 40 mg Sennosides (Senna Tablet) 1 tab PO QDAY PRN; Protocol PRN Reason: constipation Stop: 11/18/24 11:25 Discontinued Medications Acetaminophen (Acetaminophen 325 Mg Tablet) 650 mg PO Q6H PRN PRN Reason: pain and Fever >100.4 Stop: 11/18/24 11:25 Albuterol/Ipratropium (Albuterol/Ipratropium (Duoneb) Rt Dee 3 Ml Nebu) 3 ml INH X1 ONE Stop: 10/19/24 06:55 Last Admin: 10/19/24 07:05 Dose: 3 ml Carvedilol (Carvedilol 12.5 Mg Tablet) 12.5 mg PO X1 ONE Stop: 10/19/24 09:54 Last Admin: 10/19/24 10:09 Dose: Not Given Carvedilol (Carvedilol 12.5 Mg Tablet) 25 mg PO X1 ONE Stop: 10/19/24 10:08 Last Admin: 10/19/24 10:35 Dose: 25 mg Furosemide (Furosemide Inj 10 Mg/Ml 4ml Vial) 40 mg IVP X1 ONE Stop: 10/19/24 06:54 Last Admin: 10/19/24 08:03 Dose: 40 mg Furosemide (Furosemide Inj 10 Mg/Ml 4ml Vial) 40 mg IVP QDAY [facility] Stop: 11/19/24 08:59 Last Admin: 10/20/24 09:41 Dose: 40 mg Guaifenesin/Dextromethorphan (Guaifenesin/Dm Tablet) 1 each PO X1 ONE Stop: 10/19/24 07:00 Last Admin: 10/19/24 09:35 Dose: 1 each Hydralazine HCl (Hydralazine Inj 20 Mg/Ml Vial) 10 mg IV X1 ONE Stop: 10/19/24 09:19 Last Admin: 10/19/24 09:35 Dose: 10 mg Hydralazine HCl (Hydralazine Hcl 25 Mg Tablet) 50 mg PO TID [facility] Stop: 11/19/24 09:59 Last Admin: 10/21/24 05:31 Dose: 50 mg Hydralazine HCl (Hydralazine Hcl 25 Mg Tablet) 50 mg PO X1 ONE Stop: 10/21/24 10:27 Last Admin: 10/21/24 11:03 Dose: 50 mg Magnesium Sulfate (Magnesium Sulfate Ivpb) 2 gm in 50 mls @ 999 mls/hr IV X1 ONE Stop: 10/19/24 07:39 Last Admin: 10/19/24 09:30 Dose: Not Given Magnesium Sulfate (Magnesium Sulfate Ivpb) 2 gm in 50 mls @ 999 mls/hr IV X1 ONE Stop: 10/19/24 09:32 Magnesium Sulfate (Magnesium Sulfate Ivpb) 2 gm in 50 mls @ 25 mls/hr IV X1 ONE Stop: 10/19/24 11:29 Last Infusion: 10/19/24 12:35 Dose: Infused Labetalol HCl (Labetalol Inj 5 Mg/Ml Vial 20 Ml) 10 mg IVP X1 ONE Stop: 10/19/24 10:07 Morphine Sulfate (Morphine Sulf Inj 10 Mg/Ml Vial) 2 mg IVP X1 ONE Stop: 10/19/24 07:38 Last Admin: 10/19/24 08:02 Dose: 2 mg Nitroglycerin (Nitroglycerin 0.4 Mg/Hr Patch.Td24) 0.4 mg TOP X1 ONE Stop: 10/19/24 07:38 Last Admin: 10/19/24 07:52 Dose: Not Given Nitroglycerin (Nitroglycerin Oint 2% 1 Inch Packet) 2 inch TOP X1 ONE Stop: 10/19/24 07:40 Last Admin: 10/19/24 08:20 Dose: 2 inch Oseltamivir Phosphate (Oseltamivir 75 Mg Capsule) 75 mg PO X1 ONE Stop: 10/19/24 09:53 Last Admin: 10/19/24 10:35 Dose: 75 mg Potassium Chloride (Potassium Chloride 20 Meq Tabcr) 20 meq PO X1 ONE Stop: 10/19/24 14:48 Last Admin: 10/19/24 15:48 Dose: 20 meq Assessment & Plan Plan Johana Freed is a 69-year-old female with PMHx of HFrEF (EF 30 to 35%, 06/2024), CKD stage IV/V, COPD, hypertension, breast cancer status post bilateral mastectomy, and history of methamphetamine use who was admitted for management of acute decompensated CHF exacerbation and hypertensive emergency. Nephrology consulted for evaluation of acute on chronic kidney injury. #Acute on chronic kidney injury #CKD stage IV/V #Prerenal azotemia vs ATN vs cardiorenal syndrome type 2 Baseline Cr 2.2 with noted progressive elevation in Cr. Nephrology consulted for overnight elevation Cr from 2.4 to 3.1. Previously on 40 mg IV Lasix that has since been discontinued. Upon exam, patient appeared more dry than volume overloaded as lungs were clear to auscultation, minimal lower extremity edema, and mucous membranes dry. Recommend to hold fluid restrictions, hold Lasix for total of 2 days and then reassess, and give 1 L IV fluids. Of note, patient presented with BP of 218/141 that was decreased to as low as 136/97 within the span of 7 hours and possible that patient experienced relative hypoperfusion that may have led to ATN. Urine sodium 25, creatinine 57, total protein 158, albumin 762. ACR 1337, UPCR 2.8. FENa 1% (indeterminate). CT C/A/P also showed significant renal parenchymal scar formation, which appears worse from imaging on 06/2024 but will obtain renal US to further assess. - Recommend 1 L IVF - Hold fluid restrictions - Hold lasix for total of 2 days and reassess #Hypertensive emergency #Hypertension #Acute decompensated heart failure exacerbation #HFrEF #AHRF secondary to, #Community-acquired pneumonia #COVID-positive #Influenza positive #History of COPD #Transaminitis #Cirrhosis #NSTEMI type II #Polysubstance abuse - Continue management per primary team ----- Plan discussed with attending physician Dr. Tess Sanchez MD PGY-1 Internal Medicine Attending Provider Attestation/Addendum Patient seen and examined with resident physician Dr Soriano Note reviewed, agree with findings and recommendations. Well-known to me from previous admissions. Patient with acute on chronic renal failure in the setting of decompensated heart failure. Clinically seems to be mildly dehydrated. Patient on fluid restriction and is getting IV Lasix 40 mg daily. Will hold IV Lasix and liberalize fluid restriction. Spoke to primary team to give 1 L normal saline.. renal ultrasound showed small kidneys consistent with advanced CKD. l echocardiogram showed ejection fraction 30 to 35% with severe global hypokinesis Thank you Kobe for allowing me to participate in the care of Ms. Vaughn
[2024-10-21] MEDS: hydrALAZINE HCL 25 MG TABLET 100 MG PO ×2 (14:16→21:13)
[2024-10-21 14:43] LABS: Creatinine MALB Rnd Ur 57 mg/dL (30-125); Protein Total, Random Urine 158 mg/dL (1-14); Sodium,Urine Random 25.5 mMol/L (20.0-110.0)
[2024-10-21 14:49] LABS: Microalbumin Creat Ratio 1337 mg/gCrea (<30); Microalbumin, Random Urine 762 mg/L (0-300)
[2024-10-21] MEDS: SODIUM CHLORIDE 0.9% 1000 ML 1,000 ML 100 ML IV (14:57)
--- NOTE | 2024-10-21 15:17 | XR_ITS ---
Examination: Retroperitoneal ultrasound, complete Technique: Multiple high resolution grayscale images of the retroperitoneum obtained, including kidneys and bladder. Exam date and time:October 21, 2024 1545 hours INDICATIONS: Diagnosis chronic kidney disease FINDINGS: Right kidney 9.6 x 5.3 x 5.3 cm cortex 1.4 cm Midpole cyst 12 mm Left kidney 9.5 x 4.3 x 4.5 cm cortex 2.3 cm Moderate bilateral renal parenchymal scar formation No hydronephrosis Contracted urinary bladder IMPRESSION: Moderate bilateral renal parenchymal scar formation Right renal cortical thinning No hydronephrosis
[2024-10-21] MEDS: carVEDILOL 12.5 MG TABLET 25 MG PO (17:50)
[2024-10-21] MEDS: HYDROcodone/APAP 5/325 TABLET 1 TAB PO (21:17)
[2024-10-22] VITALS (19 sets, daily range): BP systolic 112–159; BP diastolic 73–92; PULSE 56–98; RESP 15–93; TEMP 36.1–36.6; O2SAT 92–99; BMI 27.1; BMI 26.9
[2024-10-22] MEDS: hydrALAZINE HCL 25 MG TABLET 100 MG PO ×3 (05:11→21:20)
[2024-10-22 06:02] LABS: Basophils # (Auto) 0.1 Thou/mm3 (0.0-0.2); Basophils % (Auto) 0 % (0-2.5); Eosinophils % (Auto) 0 % (0-10); Hematocrit 38.4 % (36.0-46.0); Hemoglobin 12.3 g/dL (12.0-16.0); Immature Granulocytes % (Auto) 1 % (0-0); Immature Granulocytes Auto 0.19 Thou/mm3 (0.00-0.00); Lymphocytes # (Auto) 0.9 Thou/mm3 (1.0-4.8); Lymphocytes % (Auto) 6 % (10-50); Mean Corpuscular Hemoglobin 30.7 pg (25.0-35.0); Mean Corpuscular Volume 96 fL (80-100); Monocytes # (Auto) 0.6 Thou/mm3 (0.0-0.8); Monocytes % (Auto) 4 % (0-12); Neutrophils # (Auto) 12.2 Thou/mm3 (1.8-7.7); Neutrophils % (Auto) 88 % (37-80); Nucleated Red Blood Cell % 0 /100 WBC (0); Platelet Count 283 Thou/mm3 (140-440); RDW Standard Deviation 49.4 fL (36.4-46.3); Red Blood Count 4.01 Miln/mm3 (4.00-5.20); White Blood Count 13.9 Thou/mm3 (3.6-11.0)
[2024-10-22 06:40] LABS: Alanine Aminotransferase 42 U/L (10-49); Albumin, Serum 3.1 gm/dL (3.4-4.8); Albumin/Globulin Ratio 1.2 (1.2-2.2); Alkaline Phosphatase 145 U/L (46-116); Anion Gap 10 (7-16); Aspartate Amino Transferase 18 U/L (0-34); BUN/Creatinine Ratio 30 Ratio (12-20); Bilirubin,Total < 0.2 mg/dL (0.3-1.2); Blood Urea Nitrogen 90 mg/dL (9-23); Calcium 8.1 mg/dL (8.3-10.6); Calcium (Corrected) 8.8 mg/dL (8.5-10.1); Carbon Dioxide 24.6 mMol/L (20.0-31.0); Chloride 110 mMol/L (98-107); Estimated Creatinine Clearance 16.7 mL/min (>60); Globulin 2.6 gm/dL (2.3-3.5); Glucose 132 mg/dL (74-106); Magnesium 1.6 mg/dL (1.6-2.6); Osmolality,Calculated 318 (275-295); Sodium 145 mMol/L (136-145); Total Protein 5.7 gm/dL (5.7-8.2); eGFR 16 See Note
[2024-10-22] MEDS: cefTRIAXone/D5w 1gm IV premix 50 ML IV (08:09)
[2024-10-22] MEDS: AZITHROMYCIN 250 MG TABLET 500 MG PO (08:10)
[2024-10-22] MEDS: PANTOPRAZOLE 40 MG TABLET PO (08:10)
[2024-10-22] MEDS: amLODIPine BESYLATE 5 MG TABLET 10 MG PO (08:10)
[2024-10-22] MEDS: carVEDILOL 12.5 MG TABLET 25 MG PO ×2 (08:11→17:16)
[2024-10-22] MEDS: ENOXAPARIN SOD INJ 30 MG/0.3 ML SYRINGE SC (08:12)
[2024-10-22] MEDS: OSELTAMIVIR 30 MG CAPSULE PO (08:12)
[2024-10-22] MEDS: Magnesium Sulfate 2 GM Ivpb 2 GM/50 ML BAG IV (09:49)
[2024-10-22] MEDS: DOXYCYCLINE 100 MG TABLET PO ×2 (09:50→21:21)
--- NOTE | 2024-10-22 10:11 | PD.NEPHPROG ---
Documentation for date of: 10/22/24 Subjective Subjective Interval history: Johana Freed is a 69-year-old female with PMHx of HFrEF (EF 30 to 35%, 06/2024), CKD stage IV/V, COPD, hypertension, breast cancer status post bilateral mastectomy, and history of methamphetamine use who presented on 10/19 for progressive shortness of breath. She states that symptoms started a few weeks ago with associated cough, but no bodyaches, fever, chills, loose bowel movements. Also denies recent sick contacts. 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 Continues to use methamphetamine, but states that she has been trying to quit. Of note, patient was in ED on 10/13 for similar symptoms as she ran out of her Lasix and was thus discharged with a month supply. Additionally, patient was discharged in June 2024 for CHF exacerbation. At that time, echo showed EF of 30 to 35%, grade 2/3 diastolic dysfunction, RVSP 62 mmHg. renal ultrasound showed small kidneys bilaterally with renal cortical thinning as well as moderate bilateral renal parenchymal scar remission. In ED, BP 218/141, otherwise vital stable. CBC unremarkable. BUN 73, creatinine 2.4 (baseline 2.2), GFR 21, AST 113, ALT 102, troponin 0.075, BNP > 3200. UA: 3+ protein, 3+ glucose, 2+ blood, 49 RBC, no bacteria. U tox negative. CXR: Mild to moderate CHF. CT C/A/P: Left upper lobe pneumonia, significant bilateral renal parenchymal scar formation, cirrhosis. CT head: Negative. Given carvedilol, DuoNebs, Lasix, hydralazine, nitroglycerin, Tamiflu. 10/21: Seen and examined at bedside in telemetry, resting comfortably in bed. No acute overnight events reported. Noted to have an increase in creatinine from 2.4 to 3.1 overnight while on Lasix 40 mg IV daily, that was then discontinued by primary team today. Notified by nursing staff that I/O may be inaccurate as patient frequently dumps urine. However, patient states that she has been urinating frequently. Recommend to hold fluid restrictions, give 1 L IVF, and to hold lasix for total of 2 days and reassess. 10/22/2024 patient currently seen in telemetry. Currently in [facility]- isolation room. Feeling tad better than yesterday. Creatinine now 3.0. BUN still 90. Spoke to primary team-hold Rachelle and FRANCIA fluid restriction. Clinically looks rather euvolemic. Do not seem to be in fluid overload. Complaining of generalized pain all over the body from the viral illness. Blood pressure stable. WBC 13.9, hemoglobin 12.3, platelets 283. Sodium 145, potassium 4, bicarbonate 24.6, BUN 90, creatinine 3.0, calcium 8.8, magnesium 1.6, LFTs normal, albumin 3.1, urine microalbumin creatinine 1337. Urine sodium 25 in the setting of diuretics consistent with dehydration. Review of Systems Review of Systems Narrative Review of Systems: Patient complaining of general body aches. Denies any chest pain. Denies any nausea, vomiting. Does have shortness of breath and cough although much better. Exam Vital Signs Temp Pulse Resp BP Pulse Ox O2 Del Method O2 Flow Rate 36.3 C 65 16 159/91 H 94 L Room Air 2 10/22/24 08:00 10/22/24 08:11 10/22/24 08:00 10/22/24 08:11 10/22/24 08:00 10/22/24 08:00 10/21/24 20:00 Narrative Exam GENERAL APPEARANCE: Patient seems to be comfortable, adequately hydrated and nourished. HEENT: Slightly dehydrated NECK: Neck supple, no JVD or bruit Patient had right breast implant CARDIOVASCULAR: Heart regular, no murmurs LUNGS/CHEST: Wheezing much better than yesterday ABDOMEN: Soft, nontender, nondistended. No masses. Normal bowel sounds. EXTREMITIES: No edema, clubbing or cyanosis. SKIN: Skin exam normal without any rashes MUSCULOSKELETAL: Musculoskeletal exam normal PSYCHIATRIC: Normal mood, affect LYMPHATICS: No lymphadenopathy noted NEUROLOGICAL : No neurological deficits Objective Labs 10/22/24 04:55 10/22/24 04:55 Labs: Laboratory Results - last 24 hr 10/21/24 10/22/24 12:09 04:55 WBC 13.9 H RBC 4.01 Hgb 12.3 Hct 38.4 MCV 96 MCH 30.7 MCHC 32.0 RDW Std Deviation 49.4 H Plt Count 283 Neut % (Auto) 88 H Lymph % (Auto) 6 L [place] % (Auto) 4 Eos % (Auto) 0 Baso % (Auto) 0 Neut # (Auto) 12.2 H Lymph # (Auto) 0.9 L [place] # (Auto) 0.6 Eos # (Auto) 0.0 Baso # (Auto) 0.1 Immature Gran # (Auto) 0.19 H Absolute Nucleated RBC 0.00 Immature Gran % 1 H Nucleated RBC % 0 Sodium 145 Potassium 4.0 Chloride 110 H Carbon Dioxide 24.6 Anion Gap 10 BUN 90 H Creatinine 3.0 H Estim Creat Clear Calc 16.7 L eGFR 16 L BUN/Creatinine Ratio 30 H Glucose 132 H Calculated Osmolality 318 H Calcium 8.1 L Corrected Calcium 8.8 Magnesium 1.6 Total Bilirubin < 0.2 L AST 18 ALT 42 Alkaline Phosphatase 145 H Total Protein 5.7 Albumin 3.1 L Globulin 2.6 Albumin/Globulin Ratio 1.2 Ur Random Microalbumin 762 H U Random Total Protein 158 H Ur Random Sodium 25.5 U Creat (Microalbumin) 57 Microalb/Creat Ratio 1337 H Assessment & Plan Additional Assessment & Plan Additional Plan: Johana Freed is a 69-year-old female with PMHx of HFrEF (EF 30 to 35%, 06/2024), CKD stage IV/V, COPD, hypertension, breast cancer status post bilateral mastectomy, and history of methamphetamine use who was admitted for management of acute decompensated CHF exacerbation and hypertensive emergency. Nephrology consulted for evaluation of acute on chronic kidney injury. #Acute on chronic kidney injury #CKD stage IV/V #Prerenal azotemia vs ATN vs cardiorenal syndrome type 2 Baseline Cr 2.2 with noted progressive elevation in Cr. Nephrology consulted for overnight elevation Cr from 2.4 to 3.1. Previously on 40 mg IV Lasix that has since been discontinued. Upon exam, patient appeared more dry than volume overloaded as lungs were clear to auscultation, minimal lower extremity edema, and mucous membranes dry. Recommend to hold fluid restrictions, hold Lasix for total of 2 days and then reassess, and give 1 L IV fluids. Of note, patient presented with BP of 218/141 that was decreased to as low as 136/97 within the span of 7 hours and possible that patient experienced relative hypoperfusion that may have led to ATN. Urine sodium 25, creatinine 57, total protein 158, albumin 762. ACR 1337, UPCR 2.8. FENa 1% (indeterminate). CT C/A/P also showed significant renal parenchymal scar formation, which appears worse from imaging on 06/2024 but will obtain renal US to further assess. 10/22/2024 hold FRANCIA Bush fluid restriction. Will reassess again in a.m. #Hypertensive emergency #Hypertension #Acute decompensated heart failure exacerbation #HFrEF #AHRF secondary to, #Community-acquired pneumonia #COVID-positive #Influenza positive #History of COPD #Transaminitis #Cirrhosis #NSTEMI type II #Polysubstance abuse - Continue management per primary team
[2024-10-22] MEDS: ALBUTEROL/IPRATROPIUM (Duoneb) RT SOL 3 ML NEBU INH ×2 (10:42→15:30)
--- NOTE | 2024-10-22 16:42 | PD.RESPRO ---
Documentation for date of: 10/22/24 Subjective Subjective Interval history: Patient was seen at bedside this morning. No overnight events. Nifedipine 30mg BID added for blood pressure control. Trending 120-130s systolic, continue hydralazine to 100 mg TID and carvedilol to 25 mg BID. Nephrology on board, for creatinin 2.4 --> 3.1, recommend to discontinue lasix and fluid restrictions Will encourage oral hydration, anticipate DC in 24 hours Patient gets SOB on ambulation to bedside commode, will watch closely and diurese gently if needed. Exam Vital Signs Temp Pulse Resp BP Pulse Ox O2 Del Method O2 Flow Rate 97.5 F 63 20 136/82 H 97 Nasal Cannula 4 10/22/24 12:00 10/22/24 15:31 10/22/24 15:31 10/22/24 13:44 10/22/24 15:31 10/22/24 12:00 10/22/24 15:31 Narrative Exam Constitutional Alert, oriented x3 and on RA at rest, needs 2L oxygen via NC on ambulation HEENT Vision grossly intact. Patent nares. Trachea midline. Respiratory RT breast implant on inspection and diffuse wheezes on auscultation bilaterally. Cardiovascular S1 and S2 audible, RRR. No murmurs or carotid bruit. No gross JVD. Abdominal Soft and non tender to palpation in all quadrants. BS + Genitourinary No bladder tenderness, no flank pain. Normal to palpation. Musculoskeletal Extremities tone within normal limits. No LE edema. Neurological CN II - XII grossly intact. Extremity motor and sensation grossly intact. Skin Warm, dry and intact. No apparent lesions. Psychiatric Patient has a good affect, is cooperative. Objective Labs 10/22/24 04:55 10/22/24 04:55 Labs: Laboratory Results - last 24 hr 10/22/24 04:55 WBC 13.9 H RBC 4.01 Hgb 12.3 Hct 38.4 MCV 96 MCH 30.7 MCHC 32.0 RDW Std Deviation 49.4 H Plt Count 283 Neut % (Auto) 88 H Lymph % (Auto) 6 L Nicholas % (Auto) 4 Eos % (Auto) 0 Baso % (Auto) 0 Neut # (Auto) 12.2 H Lymph # (Auto) 0.9 L Nicholas # (Auto) 0.6 Eos # (Auto) 0.0 Baso # (Auto) 0.1 Immature Gran # (Auto) 0.19 H Absolute Nucleated RBC 0.00 Immature Gran % 1 H Nucleated RBC % 0 Sodium 145 Potassium 4.0 Chloride 110 H Carbon Dioxide 24.6 Anion Gap 10 BUN 90 H Creatinine 3.0 H Estim Creat Clear Calc 16.7 L eGFR 16 L BUN/Creatinine Ratio 30 H Glucose 132 H Calculated Osmolality 318 H Calcium 8.1 L Corrected Calcium 8.8 Magnesium 1.6 Total Bilirubin < 0.2 L AST 18 ALT 42 Alkaline Phosphatase 145 H Total Protein 5.7 Albumin 3.1 L Globulin 2.6 Albumin/Globulin Ratio 1.2 Quality Measures Quality Measures none Advance care planning discussed with:: patient Assessment & Plan Assessment Current Active Medications: Generic Name Dose Route Start Last Admin Trade Name Freq PRN Reason Stop Dose Admin Acetaminophen 650 mg 10/20/24 06:49 Acetaminophen 325 Mg Tablet PO 11/18/24 11:25 Q6H PRN pain 1-3 and Fever >100.4 Hydrocodone Bitart/Acetaminophen 1 tab 10/19/24 11:26 10/21/24 21:17 Hydrocodone/Apap 5/325 Tablet PO 10/24/24 11:25 1 tab Q4HR PRN Administration PAIN SCALE 4-10(Mod-Sev Albuterol/Ipratropium 3 ml 10/19/24 15:00 10/22/24 15:30 Albuterol/Ipratropium (Duoneb) Rt Dee 3 Ml Nebu INH 11/18/24 14:59 3 ml Q4HRRT KENNEDY Administration Carvedilol 25 mg 10/21/24 17:30 10/22/24 08:11 Carvedilol 12.5 Mg Tablet PO 11/20/24 17:29 25 mg BIDWM KENNEDY Administration Doxycycline Hyclate 100 mg 10/22/24 09:45 10/22/24 09:50 Doxycycline 100 Mg Tablet PO 10/29/24 09:44 100 mg BID KENNEDY Administration Enoxaparin Sodium 30 mg 10/22/24 09:00 10/22/24 08:12 Enoxaparin Sod Inj 30 Mg/0.3 Ml Syringe SC 11/03/24 08:59 30 mg QDAY KENNEDY Administration Protocol Hydralazine HCl 100 mg 10/21/24 14:00 10/22/24 13:44 Hydralazine Hcl 25 Mg Tablet PO 11/20/24 13:59 100 mg TID KENNEDY Administration Ceftriaxone Sodium/Dextrose 50 mls @ 100 mls/hr 10/19/24 14:27 10/22/24 08:09 Rocephin/D5w 1gm Iv Premix IV 10/26/24 14:26 100 mls/hr QDAY KENNEDY Administration Methylprednisolone Sodium Succinate 40 mg 10/19/24 11:45 10/22/24 08:09 Methylprednisolone Sod Succ 40 Mg Vial IVP 10/26/24 11:44 40 mg QDAY KENNEDY Administration Nifedipine 30 mg 10/22/24 11:45 10/22/24 12:23 Nifedipine Xl 30 Mg Tabcr PO 11/21/24 11:44 Not Given BID KENNEDY Ondansetron HCl 4 mg 10/19/24 11:26 Ondansetron Inj 2 Mg/Ml Inj 2 Ml IV 11/18/24 11:25 Q6H PRN NAUSEA OR VOMITING Protocol Oseltamivir Phosphate 30 mg 10/20/24 09:00 10/22/24 08:12 Oseltamivir 30 Mg Capsule PO 10/24/24 08:59 30 mg QDAY KENNEDY Administration Pantoprazole Sodium 40 mg 10/20/24 09:00 10/22/24 08:10 Pantoprazole 40 Mg Tablet PO 11/19/24 08:59 40 mg QDAY KENNEDY Administration Sennosides 1 tab 10/19/24 11:26 Senna Tablet PO 11/18/24 11:25 QDAY PRN constipation Protocol Plan Patient is a 69-year-old female with past medical history of HFrEF (EF 30 to 35% on 06/2024), CKD stage IIIb, COPD, meth use, hypertension, and breast cancer status post bilateral mastectomy was admitted to the hospital on 10/19/2023 for acute compensated heart failure exacerbation, community-acquired pneumonia (COVID and influenza positive), and hypertensive urgency. Acute hypoxic Respiratory Failure secondary to Acute decompensation of HFrEF 30 - 35% (06/2024) Community-acquired LT UL pneumonia COVID-positive Influenza positive COPD ? Patient states that she gets really short of breath, has gotten progressively worse over the past few weeks. ? BNP : > 3280 ? Chest x-ray : moderate CHF pattern ? Chest/abdomen/pelvis CT : left upper lobe pneumonia ? Patient was COVID and influenza A positive in the ED - 10/22 Patient gets SOB on ambulation to bedside commode, will watch closely and diurese gently if needed. Plan: ? Discontinued lasix and stop fluid restriction , per Nephro recs - Tamiflu (30 mg daily) renally dose [10/19- ? Methylprednisolone 40 mg daily [10/19- ? Rocephin and Azithromycin[10/19? ? DuoNebs every 4 hours PRN - Evaluate ambulatory oxygen needs on 10/23 prior to DC SREE on CKD stage IIIb ? Patient has baseline creatinine of around 2.2 ? Creatinine on admission was 2.4, likely prerenal in the setting of hypertension and heart failure exacerbation ? Patient received carvedilol 12.5 mg x 1 and 25 mg x 1 in the ED as well as hydralazine 10 mg x 1 in the ED. - 10/21 : Nephrology consultation with Dr. Pulido, appreciate recommendations. Given 1 L IV fluid bolus, and fluid restriction was decreased to 2 L daily - 10/22 : Cr 3.1 -> 3.0 and GFR 15 -> 16 Plan: - 10/22 Nifedipine 30mg BID added for blood pressure control. Trending 120-130s systolic - Continue hydralazine to 100 mg TID and carvedilol to 25 mg BID. - Per Nephrology recommendations, will discontinue Lasix and fluid restriction at this time - Avoid nephrotoxic agents. - Anticipate improvement in 24 hours Hypertensive emergency- resolved NSTEMI likely type II Polysubstance use ? Initial blood pressure = 218/141 ? Troponins of 0.075 -> wnl ? Patient was previously seen 1 week ago and troponins were 0.127 indicating that troponins on this admission are most likely residual ? Elevated troponins mostly in the setting also of hypertensive urgency ? EKG did not show any ST changes ? Patient admitted to using meth and marijuana around 4 to 5 days ago ? U tox : negative Plan: ? Keep K >4 and Mg >2 ? Continue carvedilol 25 mg twice daily ? Referred to secondary social studies teacher ? Counseled the patient on importance of abstaining from illicit drugs Transaminitis Cirrhosis ? Patient came in with AST 113, ALT 102, alkaline phosphatase 184 ? Chest/abdomen/pelvis CT showed cirrhosis ? Likely in the setting of polysubstance use - AST 12, ALT 51, ALP 140 today Plan: ? Will continue to monitor Health maintenance: Disposition: added nifedipine with good BP control, anticipate DC in 24 hours once able to ambulate on RA and SREE improved Diet: Cardiac GI prophylaxis: protonix DVT prophylaxis: lovenox Code:Full code Plan of care discussed with attending Ayush Manriquez M.D. PGY2
[2024-10-22] MEDS: HYDROcodone/APAP 5/325 TABLET 1 TAB PO (19:32)
[2024-10-22] MEDS: NIFEdipine XL 30 MG TABCR PO (21:21)
[2024-10-23] VITALS (17 sets, daily range): BP systolic 120–142; BP diastolic 67–96; PULSE 55–79; RESP 14–95; TEMP 36.1–36.3; O2SAT 92–98
[2024-10-23] MEDS: hydrALAZINE HCL 25 MG TABLET 100 MG PO ×3 (05:16→21:32)
[2024-10-23] MEDS: HYDROcodone/APAP 5/325 TABLET 1 TAB PO ×3 (05:17→20:08)
[2024-10-23 06:25] LABS: Basophils % (Auto) 0 % (0-2.5); Eosinophils % (Auto) 0 % (0-10); Hematocrit 42.1 % (36.0-46.0); Hemoglobin 13.4 g/dL (12.0-16.0); Immature Granulocytes % (Auto) 2 % (0-0); Immature Granulocytes Auto 0.19 Thou/mm3 (0.00-0.00); Lymphocytes # (Auto) 0.7 Thou/mm3 (1.0-4.8); Lymphocytes % (Auto) 7 % (10-50); Mean Corpuscular HGB Conc 31.8 g/dl (31.0-37.0); Mean Corpuscular Hemoglobin 31.4 pg (25.0-35.0); Mean Corpuscular Volume 99 fL (80-100); Monocytes # (Auto) 0.4 Thou/mm3 (0.0-0.8); Monocytes % (Auto) 4 % (0-12); Neutrophils # (Auto) 9.4 Thou/mm3 (1.8-7.7); Neutrophils % (Auto) 88 % (37-80); Nucleated Red Blood Cell % 0 /100 WBC (0); RDW Standard Deviation 52.2 fL (36.4-46.3); Red Blood Count 4.27 Miln/mm3 (4.00-5.20); White Blood Count 10.7 Thou/mm3 (3.6-11.0)
[2024-10-23 06:27] LABS: Platelet Count 41 Thou/mm3 (140-440)
[2024-10-23 06:28] LABS: Slide Review Platelets confirmed
[2024-10-23 06:37] LABS: Albumin, Serum 3.1 gm/dL (3.4-4.8); Anion Gap 10 (7-16); BUN/Creatinine Ratio 26 Ratio (12-20); Blood Urea Nitrogen 74 mg/dL (9-23); Calcium 8.2 mg/dL (8.3-10.6); Calcium (Corrected) 8.9 mg/dL (8.5-10.1); Chloride 111 mMol/L (98-107); Creatinine (Component) 2.9 mg/dL (0.6-1.3); Estimated Creatinine Clearance 17.3 mL/min (>60); Glucose 137 mg/dL (74-106); Osmolality,Calculated 307 (275-295); Phosphorous 2.6 mg/dL (2.4-5.1); Potassium 4.6 mMol/L (3.4-5.1); Sodium 142 mMol/L (136-145); eGFR 17 See Note
[2024-10-23] MEDS: DOXYCYCLINE 100 MG TABLET PO ×2 (08:33→20:09)
[2024-10-23] MEDS: OSELTAMIVIR 30 MG CAPSULE PO (08:33)
[2024-10-23] MEDS: PANTOPRAZOLE 40 MG TABLET PO (08:33)
[2024-10-23] MEDS: carVEDILOL 12.5 MG TABLET 25 MG PO ×2 (08:33→16:43)
[2024-10-23] MEDS: ENOXAPARIN SOD INJ 30 MG/0.3 ML SYRINGE SC (08:34)
[2024-10-23] MEDS: cefTRIAXone/D5w 1gm IV premix 50 ML IV (08:34)
[2024-10-23] MEDS: NIFEdipine XL 30 MG TABCR PO ×2 (08:34→20:08)
--- NOTE | 2024-10-23 12:51 | PD.NEPHPROG ---
Documentation for date of: 10/23/24 Subjective Subjective Interval history: Johana Freed is a 69-year-old female with PMHx of HFrEF (EF 30 to 35%, 06/2024), CKD stage IV/V, COPD, hypertension, breast cancer status post bilateral mastectomy, and history of methamphetamine use who presented on 10/19 for progressive shortness of breath. She states that symptoms started a few weeks ago with associated cough, but no bodyaches, fever, chills, loose bowel movements. Also denies recent sick contacts. She does not follow-up with an outpatient border patrol agent nor history professor, and has been noncompliant with medications due to difficulties getting refills. Continues to use methamphetamine, but states that she has been trying to quit. Of note, patient was in ED on 10/13 for similar symptoms as she ran out of her Lasix and was thus discharged with a month supply. Additionally, patient was discharged in June 2024 for CHF exacerbation. At that time, echo showed EF of 30 to 35%, grade 2/3 diastolic dysfunction, RVSP 62 mmHg. renal ultrasound showed small kidneys bilaterally with renal cortical thinning as well as moderate bilateral renal parenchymal scar remission. In ED, BP 218/141, otherwise vital stable. CBC unremarkable. BUN 73, creatinine 2.4 (baseline 2.2), GFR 21, AST 113, ALT 102, troponin 0.075, BNP > 3200. UA: 3+ protein, 3+ glucose, 2+ blood, 49 RBC, no bacteria. U tox negative. CXR: Mild to moderate CHF. CT C/A/P: Left upper lobe pneumonia, significant bilateral renal parenchymal scar formation, cirrhosis. CT head: Negative. Given carvedilol, DuoNebs, Lasix, hydralazine, nitroglycerin, Tamiflu. 10/21: Seen and examined at bedside in telemetry, resting comfortably in bed. No acute overnight events reported. Noted to have an increase in creatinine from 2.4 to 3.1 overnight while on Lasix 40 mg IV daily, that was then discontinued by primary team today. Notified by nursing staff that I/O may be inaccurate as patient frequently dumps urine. However, patient states that she has been urinating frequently. Recommend to hold fluid restrictions, give 1 L IVF, and to hold lasix for total of 2 days and reassess. 10/22/2024 patient currently seen in telemetry. Currently in [facility]- isolation room. Feeling tad better than yesterday. Creatinine now 3.0. BUN still 90. Spoke to primary team-hold Lasix and DC fluid restriction. Clinically looks rather euvolemic. Do not seem to be in fluid overload. Complaining of generalized pain all over the body from the viral illness. Blood pressure stable. WBC 13.9, hemoglobin 12.3, platelets 283. Sodium 145, potassium 4, bicarbonate 24.6, BUN 90, creatinine 3.0, calcium 8.8, magnesium 1.6, LFTs normal, albumin 3.1, urine microalbumin creatinine 1337. Urine sodium 25 in the setting of diuretics consistent with dehydration. 10/23/2024 patient currently seen in telemetry. In [place] [id number] isolation room. Feeling much better today. Blood pressure 123/72, heart rate 62. WBC normal, platelets 41. Sodium 142, potassium 4.6, BUN 74, creatinine 2.9, calcium 8.9, phosphorus 2.6, albumin 3.1 Patient able to eat and drink well. BUN and creatinine improving. However noted to have some edema. Will resume Lasix every other day. Patient ejection fraction 30 to 35% during last admission. Suggested to ambulate. Discharge planning once stable. Review of Systems Review of Systems Narrative Review of Systems: Patient complaining of general body aches. Denies any chest pain. Denies any nausea, vomiting. Does have shortness of breath and cough although much better. Exam Vital Signs Temp Pulse Resp BP Pulse Ox O2 Del Method O2 Flow Rate 36.1 C 62 24 H 123/72 93 L Room Air 6 10/23/24 16:00 10/23/24 16:43 10/23/24 16:10/23/24 16:43 10/23/24 16:00 10/23/24 16:10/23/24 07:59 Narrative Exam GENERAL APPEARANCE: Patient seems to be comfortable, adequately hydrated and nourished. HEENT: Slightly dehydrated NECK: Neck supple, no JVD or bruit Patient had right breast implant CARDIOVASCULAR: Heart regular, no murmurs LUNGS/CHEST: Wheezing much better than yesterday ABDOMEN: Soft, nontender, nondistended. No masses. Normal bowel sounds. EXTREMITIES: 1+ edema in the lower extremities SKIN: Skin exam normal without any rashes MUSCULOSKELETAL: Musculoskeletal exam normal PSYCHIATRIC: Normal mood, affect LYMPHATICS: No lymphadenopathy noted NEUROLOGICAL : No neurological deficits Objective Labs 10/23/24 05:17 10/23/24 05:17 Labs: Laboratory Results - last 24 hr 10/23/24 05:17 WBC 10.7 RBC 4.27 Hgb 13.4 Hct 42.1 MCV 99 MCH 31.4 MCHC 31.8 RDW Std Deviation 52.2 H Plt Count 41 L D Neut % (Auto) 88 H Lymph % (Auto) 7 L Norman % (Auto) 4 Eos % (Auto) 0 Baso % (Auto) 0 Neut # (Auto) 9.4 H Lymph # (Auto) 0.7 L Norman # (Auto) 0.4 Eos # (Auto) 0.0 Baso # (Auto) 0.0 Immature Gran # (Auto) 0.19 H Absolute Nucleated RBC 0.00 Immature Gran % 2 H Nucleated RBC % 0 Sodium 142 Potassium 4.6 D Chloride 111 H Carbon Dioxide 21.0 Anion Gap 10 BUN 74 H Creatinine 2.9 H Estim Creat Clear Calc 17.3 L eGFR 17 L BUN/Creatinine Ratio 26 H Glucose 137 H Calculated Osmolality 307 H Calcium 8.2 L Corrected Calcium 8.9 Phosphorus 2.6 Albumin 3.1 L Misc Test Result Platelets confirmed Assessment & Plan Additional Assessment & Plan Additional Plan: Johana Freed is a 69-year-old female with PMHx of HFrEF (EF 30 to 35%, 06/2024), CKD stage IV/V, COPD, hypertension, breast cancer status post bilateral mastectomy, and history of methamphetamine use who was admitted for management of acute decompensated CHF exacerbation and hypertensive emergency. Nephrology consulted for evaluation of acute on chronic kidney injury. #Acute on chronic kidney injury #CKD stage IV/V #Prerenal azotemia vs ATN vs cardiorenal syndrome type 2 Baseline Cr 2.2 with noted progressive elevation in Cr. Nephrology consulted for overnight elevation Cr from 2.4 to 3.1. Previously on 40 mg IV Lasix that has since been discontinued. Upon exam, patient appeared more dry than volume overloaded as lungs were clear to auscultation, minimal lower extremity edema, and mucous membranes dry. Recommend to hold fluid restrictions, hold Lasix for total of 2 days and then reassess, and give 1 L IV fluids. Of note, patient presented with BP of 218/141 that was decreased to as low as 136/97 within the span of 7 hours and possible that patient experienced relative hypoperfusion that may have led to ATN. Urine sodium 25, creatinine 57, total protein 158, albumin 762. ACR 1337, UPCR 2.8. FENa 1% (indeterminate). CT C/A/P also showed significant renal parenchymal scar formation, which appears worse from imaging on 06/2024 but will obtain renal US to further assess. 10/22/2024 hold Lasix, DC fluid restriction. 10/23/2024 will resume Lasix every other day. DC fluid restriction. Clinically she seems to be rather euvolemic. Will reassess again in a.m. #Hypertensive emergency #Hypertension #Acute decompensated heart failure exacerbation #HFrEF #AHRF secondary to, #Community-acquired pneumonia #COVID-positive #Influenza positive #History of COPD #Transaminitis #Cirrhosis #NSTEMI type II #Polysubstance abuse - Continue management per primary team
--- NOTE | 2024-10-23 17:05 | PD.RESPRO ---
Documentation for date of: 10/23/24 Subjective Subjective Interval history: Patient was seen and examined at bedside. No acute overnight events. Patient continues to have generalized bodyaches. She is able to breathe on room air saturating 93%. Will continue current management and monitor patient. Exam Vital Signs Temp Pulse Resp BP Pulse Ox O2 Del Method O2 Flow Rate 97.3 F 62 24 H 123/72 92 L Room Air 6 10/23/24 12:00 10/23/24 16:43 10/23/24 12:00 10/23/24 16:43 10/23/24 12:00 10/23/24 07:59 10/23/24 07:59 Narrative Exam Gen: Well-developed and well-nourished female. HEENT: NCAT, PERRLA, EOMI, MMM, anicteric conjunctivae. CVS: normal S1 and S2. RRR. No M/R/G. Resp: wheezing B/L. No rhonchi, rales, crackles. Abd: soft, non-tender, non-distended. BS+ in all 4 quadrants. MSK: Good ROM in BUE & BLE. No edema or rash. Rt breast implant. Neuro: CN II-XII grossly intact. Strength 5/5 in BUE & BLE. Alert and oriented x3. Psych: appropriate mood and affect. Objective Labs 10/23/24 05:17 10/23/24 05:17 Labs: Laboratory Results - last 24 hr 10/23/24 05:17 WBC 10.7 RBC 4.27 Hgb 13.4 Hct 42.1 MCV 99 MCH 31.4 MCHC 31.8 RDW Std Deviation 52.2 H Plt Count 41 L D Neut % (Auto) 88 H Lymph % (Auto) 7 L [place] % (Auto) 4 Eos % (Auto) 0 Baso % (Auto) 0 Neut # (Auto) 9.4 H Lymph # (Auto) 0.7 L [place] # (Auto) 0.4 Eos # (Auto) 0.0 Baso # (Auto) 0.0 Immature Gran # (Auto) 0.19 H Absolute Nucleated RBC 0.00 Immature Gran % 2 H Nucleated RBC % 0 Sodium 142 Potassium 4.6 D Chloride 111 H Carbon Dioxide 21.0 Anion Gap 10 BUN 74 H Creatinine 2.9 H Estim Creat Clear Calc 17.3 L eGFR 17 L BUN/Creatinine Ratio 26 H Glucose 137 H Calculated Osmolality 307 H Calcium 8.2 L Corrected Calcium 8.9 Phosphorus 2.6 Albumin 3.1 L Misc Test Result Platelets confirmed Quality Measures Quality Measures none Advance care planning discussed with:: patient Assessment & Plan Assessment Current Active Medications: Generic Name Dose Route Start Last Admin Trade Name Freq PRN Reason Stop Dose Admin Acetaminophen 650 mg 10/20/24 06:49 Acetaminophen 325 Mg Tablet PO 11/18/24 11:25 Q6H PRN pain 1-3 and Fever >100.4 Hydrocodone Bitart/Acetaminophen 1 tab 10/19/24 11:26 10/23/24 09:26 Hydrocodone/Apap 5/325 Tablet PO 10/24/24 11:25 1 tab Q4HR PRN Administration PAIN SCALE 4-10(Mod-Sev Albuterol/Ipratropium 3 ml 10/23/24 10:05 Albuterol/Ipratropium (Duoneb) Rt Dee 3 Ml Nebu INH 11/18/24 14:59 Q4HRRT PRN SHORTNESS OF BREATH OR WHEEZE Carvedilol 25 mg 10/21/24 17:30 10/23/24 16:43 Carvedilol 12.5 Mg Tablet PO 11/20/24 17:29 25 mg BIDWM KENNEDY Administration Doxycycline Hyclate 100 mg 10/22/24 09:45 10/23/24 08:33 Doxycycline 100 Mg Tablet PO 10/29/24 09:44 100 mg BID KENNEDY Administration Enoxaparin Sodium 30 mg 10/22/24 09:00 10/23/24 08:34 Enoxaparin Sod Inj 30 Mg/0.3 Ml Syringe SC 11/03/24 08:59 30 mg QDAY KENNEDY Administration Protocol Hydralazine HCl 100 mg 10/21/24 14:00 10/23/24 13:58 Hydralazine Hcl 25 Mg Tablet PO 11/20/24 13:59 100 mg TID KENNEDY Administration Ceftriaxone Sodium/Dextrose 50 mls @ 100 mls/hr 10/19/24 14:27 10/23/24 08:34 Rocephin/D5w 1gm Iv Premix IV 10/26/24 14:26 100 mls/hr QDAY KENNEDY Administration Methylprednisolone Sodium Succinate 40 mg 10/19/24 11:45 10/23/24 08:33 Methylprednisolone Sod Succ 40 Mg Vial IVP 10/26/24 11:44 40 mg QDAY KENNEDY Administration Nifedipine 30 mg 10/22/24 11:45 10/23/24 08:34 Nifedipine Xl 30 Mg Tabcr PO 11/21/24 11:44 30 mg BID KENNEDY Administration Ondansetron HCl 4 mg 10/19/24 11:26 Ondansetron Inj 2 Mg/Ml Inj 2 Ml IV 11/18/24 11:25 Q6H PRN NAUSEA OR VOMITING Protocol Oseltamivir Phosphate 30 mg 10/20/24 09:00 10/23/24 08:33 Oseltamivir 30 Mg Capsule PO 10/24/24 08:59 30 mg QDAY KENNEDY Administration Pantoprazole Sodium 40 mg 10/20/24 09:00 10/23/24 08:33 Pantoprazole 40 Mg Tablet PO 11/19/24 08:59 40 mg QDAY KENNEDY Administration Sennosides 1 tab 10/19/24 11:26 Senna Tablet PO 11/18/24 11:25 QDAY PRN constipation Protocol Plan Patient is a 69-year-old female with past medical history of HFrEF (EF 30 to 35% on 06/2024), CKD stage IIIb, COPD, meth use, hypertension, and breast cancer status post bilateral mastectomy was admitted to the hospital on 10/19/2023 for acute compensated heart failure exacerbation, community-acquired pneumonia (COVID and influenza positive), and hypertensive urgency. #Acute hypoxic Respiratory Failure 2/2 CHF exacerbation and PNA. #Community-acquired LT UL pneumonia. #COVID-positive. #Influenza positive. #COPD. ? Patient states that she gets really short of breath, has gotten progressively worse over the past few weeks. ? Chest/abdomen/pelvis CT : left upper lobe pneumonia ? Patient was COVID and influenza A positive in the ED - 10/22 Patient gets SOB on ambulation to bedside commode, will watch closely and diurese gently if needed. Plan: - Tamiflu (30 mg daily) renally dose [10/19- ? Methylprednisolone 40 mg daily [10/19- ? Rocephin and Azithromycin[10/19? ? DuoNebs every 4 hours PRN - Evaluate ambulatory oxygen needs on 10/23 prior to DC #Acute decompensation of HFrEF 30 - 35% (06/2024). ? BNP : > 3280. ? Chest x-ray : moderate CHF pattern. Plan: - Discontinued lasix and stop fluid restriction , per Nephro recs. - continue home carvedilol. #SREE on CKD stage IIIb. ? Patient has baseline creatinine of around 2.2 ? Creatinine on admission was 2.4, likely prerenal in the setting of hypertension and heart failure exacerbation ? Patient received carvedilol 12.5 mg x 1 and 25 mg x 1 in the ED as well as hydralazine 10 mg x 1 in the ED. - 10/21 : Nephrology consultation with Dr. Pulido, appreciate recommendations. Given 1 L IV fluid bolus, and fluid restriction was decreased to 2 L daily. - 10/22 : Cr 3.1 -> 3.0 and GFR 15 -> 16. Plan: - Nifedipine 30mg BID. - Continue hydralazine to 100 mg TID and carvedilol to 25 mg BID. - Per Nephrology recommendations fluid restriction at this time. - Avoid nephrotoxic agents. #Hypertensive emergency- resolved. #NSTEMI likely type II. #Polysubstance use. ? Initial blood pressure = 218/141. ? Troponins of 0.075 -> wnl. ? Patient was previously seen 1 week ago and troponins were 0.127 indicating that troponins on this admission are most likely residual. ? Elevated troponins mostly in the setting also of hypertensive urgency. ? EKG did not show any ST changes. ? Patient admitted to using meth and marijuana around 4 to 5 days ago. ? U tox : negative. Plan: ? Keep K >4 and Mg >2. ? Continue carvedilol 25 mg twice daily. ? Referred to aids social worker. ? Counseled the patient on importance of abstaining from illicit drugs. #Transaminitis. #Cirrhosis. ? Patient came in with AST 113, ALT 102, alkaline phosphatase 184. ? Chest/abdomen/pelvis CT showed cirrhosis. ? Likely in the setting of polysubstance use. - AST 12, ALT 51, ALP 140 today. Plan: ? Will continue to monitor. Health maintenance: Disposition: added nifedipine with good BP control, anticipate DC in 24 hours once able to ambulate on RA and SREE improved. Diet: Cardiac. GI prophylaxis: protonix. DVT prophylaxis: lovenox. Code: Full code. Plan of care discussed with attending Dr. Gimenez. Aakash Matson MD, PGY 2. Disclaimer: This note was dictated by speech recognition. Minor errors in ticket marker may be present due to voice recognition software.
[2024-10-23] MEDS: ALBUTEROL/IPRATROPIUM (Duoneb) RT SOL 3 ML NEBU INH (19:17)
[2024-10-23] MEDS: FUROSEMIDE INJ 10 MG/ML 4ML VIAL 40 MG IVP (20:08)
[2024-10-24] VITALS (16 sets, daily range): BP systolic 127–159; BP diastolic 66–94; PULSE 54–94; RESP 16–69; TEMP 36.1–36.7; O2SAT 92–97
[2024-10-24] MEDS: hydrALAZINE HCL 25 MG TABLET 100 MG PO ×3 (05:39→22:11)
[2024-10-24] MEDS: HYDROcodone/APAP 5/325 TABLET 1 TAB PO ×2 (05:43→22:52)
[2024-10-24 06:17] LABS: Basophils # (Auto) 0.1 Thou/mm3 (0.0-0.2); Basophils % (Auto) 0 % (0-2.5); Eosinophils % (Auto) 0 % (0-10); Hematocrit 42.6 % (36.0-46.0); Hemoglobin 13.6 g/dL (12.0-16.0); Immature Granulocytes % (Auto) 1 % (0-0); Immature Granulocytes Auto 0.22 Thou/mm3 (0.00-0.00); Lymphocytes # (Auto) 1.1 Thou/mm3 (1.0-4.8); Lymphocytes % (Auto) 8 % (10-50); Mean Corpuscular HGB Conc 31.9 g/dl (31.0-37.0); Mean Corpuscular Hemoglobin 30.5 pg (25.0-35.0); Mean Corpuscular Volume 96 fL (80-100); Monocytes # (Auto) 0.6 Thou/mm3 (0.0-0.8); Monocytes % (Auto) 4 % (0-12); Neutrophils # (Auto) 13.2 Thou/mm3 (1.8-7.7); Neutrophils % (Auto) 87 % (37-80); Nucleated Red Blood Cell % 0 /100 WBC (0); Platelet Count 328 Thou/mm3 (140-440); RDW Standard Deviation 50.4 fL (36.4-46.3); Red Blood Count 4.46 Miln/mm3 (4.00-5.20); White Blood Count 15.2 Thou/mm3 (3.6-11.0)
[2024-10-24 06:50] LABS: Albumin, Serum 3.3 gm/dL (3.4-4.8); Anion Gap 9 (7-16); BUN/Creatinine Ratio 34 Ratio (12-20); Blood Urea Nitrogen 88 mg/dL (9-23); Calcium (Corrected) 9.6 mg/dL (8.5-10.1); Carbon Dioxide 25.7 mMol/L (20.0-31.0); Chloride 110 mMol/L (98-107); Creatinine (Component) 2.6 mg/dL (0.6-1.3); Estimated Creatinine Clearance 19.9 mL/min (>60); Glucose 101 mg/dL (74-106); Osmolality,Calculated 315 (275-295); Phosphorous 3.2 mg/dL (2.4-5.1); Potassium 4.8 mMol/L (3.4-5.1); Sodium 145 mMol/L (136-145); eGFR 19 See Note
[2024-10-24] MEDS: cefTRIAXone/D5w 1gm IV premix 50 ML IV (08:56)
[2024-10-24] MEDS: carVEDILOL 12.5 MG TABLET 25 MG PO (08:57)
[2024-10-24] MEDS: ENOXAPARIN SOD INJ 30 MG/0.3 ML SYRINGE SC (08:57)
[2024-10-24] MEDS: PANTOPRAZOLE 40 MG TABLET PO (08:58)
[2024-10-24] MEDS: DOXYCYCLINE 100 MG TABLET PO ×2 (08:58→20:29)
[2024-10-24] MEDS: NIFEdipine XL 30 MG TABCR PO ×2 (08:58→20:29)
--- NOTE | 2024-10-24 09:37 | ESPR_ITS ---
Documentation for date of: 10/24/24 Subjective Subjective Interval history: Johana Freed is a 69-year-old female with PMHx of HFrEF (EF 30 to 35%, 06/2024), CKD stage IV/V, COPD, hypertension, breast cancer status post bilateral mastectomy, and history of methamphetamine use who presented on 10/19 for progressive shortness of breath. She states that symptoms started a few weeks ago with associated cough, but no bodyaches, fever, chills, loose bowel movements. Also denies recent sick contacts. She does not follow-up with an outpatient enterprise application analyst nor active directory administrator, and has been noncompliant with medications due to difficulties getting refills. Continues to use methamphetamine, but states that she has been trying to quit. Of note, patient was in ED on 10/13 for similar symptoms as she ran out of her Lasix and was thus discharged with a month supply. Additionally, patient was discharged in June 2024 for CHF exacerbation. At that time, echo showed EF of 30 to 35%, grade 2/3 diastolic dysfunction, RVSP 62 mmHg. renal ultrasound showed small kidneys bilaterally with renal cortical thinning as well as moderate bilateral renal parenchymal scar remission. In ED, BP 218/141, otherwise vital stable. CBC unremarkable. BUN 73, creatinine 2.4 (baseline 2.2), GFR 21, AST 113, ALT 102, troponin 0.075, BNP > 3200. UA: 3+ protein, 3+ glucose, 2+ blood, 49 RBC, no bacteria. U tox negative. CXR: Mild to moderate CHF. CT C/A/P: Left upper lobe pneumonia, significant bilateral renal parenchymal scar formation, cirrhosis. CT head: Negative. Given carvedilol, DuoNebs, Lasix, hydralazine, nitroglycerin, Tamiflu. 10/21: Seen and examined at bedside in telemetry, resting comfortably in bed. No acute overnight events reported. Noted to have an increase in creatinine from 2.4 to 3.1 overnight while on Lasix 40 mg IV daily, that was then discontinued by primary team today. Notified by nursing staff that I/O may be inaccurate as patient frequently dumps urine. However, patient states that she has been urinating frequently. Recommend to hold fluid restrictions, give 1 L IVF, and to hold lasix for total of 2 days and reassess. 10/22/2024 patient currently seen in telemetry. Currently in [facility]- isolation room. Feeling tad better than yesterday. Creatinine now 3.0. BUN still 90. Spoke to primary team-hold Lasix and DC fluid restriction. Clinically looks rather euvolemic. Do not seem to be in fluid overload. Complaining of generalized pain all over the body from the viral illness. Blood pressure stable. WBC 13.9, hemoglobin 12.3, platelets 283. Sodium 145, potassium 4, bicarbonate 24.6, BUN 90, creatinine 3.0, calcium 8.8, magnesium 1.6, LFTs normal, albumin 3.1, urine microalbumin creatinine 1337. Urine sodium 25 in the setting of diuretics consistent with dehydration. 10/23/2024 patient currently seen in telemetry. In [place] [id number] isolation room. Feeling much better today. Blood pressure 123/72, heart rate 62. WBC normal, platelets 41. Sodium 142, potassium 4.6, BUN 74, creatinine 2.9, calcium 8.9, phosphorus 2.6, albumin 3.1 Patient able to eat and drink well. BUN and creatinine improving. However noted to have some edema. Will resume Lasix every other day. Patient ejection fraction 30 to 35% during last admission. Suggested to ambulate. Discharge planning once stable. 10/24/2024: Patient was interviewed and examined at the bedside this morning. She reported doing well. She reported that she would not like to eat any fried potatoes. Still tends to have 0-1 bilateral lower limb edema. Her creatinine improved to 2.6, baseline 2.2, but he still seems to be in SREE. We will continue with Lasix every other day. Exam Vital Signs Temp Pulse Resp BP Pulse Ox O2 Del Method O2 Flow Rate 97.0 F 88 24 H 148/84 H 96 Room Air 6 10/24/24 04:00 10/24/24 08:58 10/24/24 04:00 10/24/24 08:58 10/24/24 04:00 10/23/24 16:00 10/23/24 07:59 Narrative Exam General: No acute distress, Alert and Oriented x 3 HEENT: Moist mucous membranes, oropharynx clear Neck: Supple, No masses, No JVD CVS: S1S2 Regular rate and rhythm, No murmurs, rubs or gallops Lungs: Clear to auscultation with no accessory use, no wheeze no rhonchi Abd: Soft, NT/ND, +BS, no organomegaly Ext: 0-1+ lower limb edema, warm and well perfused Skin: No rash Psych: Mildly agitated because was not offered the food she wanted. Objective Labs 10/25/24 04:43 10/25/24 10:40 Labs: Laboratory Results - last 24 hr 10/24/24 05:22 WBC 15.2 H D RBC 4.46 Hgb 13.6 Hct 42.6 MCV 96 MCH 30.5 MCHC 31.9 RDW Std Deviation 50.4 H Plt Count 328 D Neut % (Auto) 87 H Lymph % (Auto) 8 L Eagle % (Auto) 4 Eos % (Auto) 0 Baso % (Auto) 0 Neut # (Auto) 13.2 H Lymph # (Auto) 1.1 Eagle # (Auto) 0.6 Eos # (Auto) 0.0 Baso # (Auto) 0.1 Immature Gran # (Auto) 0.22 H Absolute Nucleated RBC 0.00 Immature Gran % 1 H Nucleated RBC % 0 Sodium 145 Potassium 4.8 Chloride 110 H Carbon Dioxide 25.7 Anion Gap 9 BUN 88 H Creatinine 2.6 H Estim Creat Clear Calc 19.9 L eGFR 19 L BUN/Creatinine Ratio 34 H Glucose 101 Calculated Osmolality 315 H Calcium 9.0 Corrected Calcium 9.6 Phosphorus 3.2 Albumin 3.3 L Quality Measures Quality Measures none Advance care planning discussed with:: patient Assessment & Plan Assessment Current Active Medications: Generic Name Dose Route Start Last Admin Trade Name Freq PRN Reason Stop Dose Admin Acetaminophen 650 mg 10/20/24 06:49 Acetaminophen 325 Mg Tablet PO 11/18/24 11:25 Q6H PRN pain 1-3 and Fever >100.4 Hydrocodone Bitart/Acetaminophen 1 tab 10/19/24 11:26 10/24/24 05:43 Hydrocodone/Apap 5/325 Tablet PO 10/24/24 11:25 1 tab Q4HR PRN Administration PAIN SCALE 4-10(Mod-Sev Albuterol/Ipratropium 3 ml 10/23/24 10:05 10/23/24 19:17 Albuterol/Ipratropium (Duoneb) Rt Dee 3 Ml Nebu INH 11/18/24 14:59 3 ml Q4HRRT PRN Administration SHORTNESS OF BREATH OR WHEEZE Carvedilol 25 mg 10/21/24 17:30 10/24/24 08:57 Carvedilol 12.5 Mg Tablet PO 11/20/24 17:29 25 mg BIDWM KENNEDY Administration Doxycycline Hyclate 100 mg 10/22/24 09:45 10/24/24 08:58 Doxycycline 100 Mg Tablet PO 10/29/24 09:44 100 mg BID KENNEDY Administration Enoxaparin Sodium 30 mg 10/22/24 09:00 10/24/24 08:57 Enoxaparin Sod Inj 30 Mg/0.3 Ml Syringe SC 11/03/24 08:59 30 mg QDAY KENNEDY Administration Protocol Furosemide 40 mg 10/23/24 21:00 10/23/24 20:08 Furosemide Inj 10 Mg/Ml 4ml Vial IVP 11/22/24 20:59 40 mg Q48HR@2100 KENNEDY Administration Hydralazine HCl 100 mg 10/21/24 14:00 10/24/24 05:39 Hydralazine Hcl 25 Mg Tablet PO 11/20/24 13:59 100 mg TID KENNEDY Administration Ceftriaxone Sodium/Dextrose 50 mls @ 100 mls/hr 10/19/24 14:27 10/24/24 08:56 Rocephin/D5w 1gm Iv Premix IV 10/26/24 14:26 100 mls/hr QDAY KENNEDY Administration Methylprednisolone Sodium Succinate 40 mg 10/19/24 11:45 10/24/24 08:56 Methylprednisolone Sod Succ 40 Mg Vial IVP 10/26/24 11:44 40 mg QDAY KENNEDY Administration Nifedipine 30 mg 10/22/24 11:45 10/24/24 08:58 Nifedipine Xl 30 Mg Tabcr PO 11/21/24 11:44 30 mg BID KENNEDY Administration Ondansetron HCl 4 mg 10/19/24 11:26 Ondansetron Inj 2 Mg/Ml Inj 2 Ml IV 11/18/24 11:25 Q6H PRN NAUSEA OR VOMITING Protocol Pantoprazole Sodium 40 mg 10/20/24 09:00 10/24/24 08:58 Pantoprazole 40 Mg Tablet PO 11/19/24 08:59 40 mg QDAY KENNEDY Administration Sennosides 1 tab 10/19/24 11:26 Senna Tablet PO 11/18/24 11:25 QDAY PRN constipation Protocol Plan Johana Freed is a 69-year-old female with PMHx of HFrEF (EF 30 to 35%, 06/2024), CKD stage IV/V, COPD, hypertension, breast cancer status post bilateral mastectomy, and history of methamphetamine use who was admitted for management of acute decompensated CHF exacerbation and hypertensive emergency. Nephrology consulted for evaluation of acute on chronic kidney injury. #SREE on CKD stage IV, improving More likely 2/2 prerenal azotemia in the setting of aggressive diuresis DDx: ATN vs cardiorenal syndrome type 2 vs less likely hepatorenal syndrome Baseline Cr 2.2 with noted progressive elevation in Cr. Nephrology consulted for overnight elevation Cr from 2.4 to 3.1. Previously on 40 mg IV Lasix that has since been discontinued. Upon exam, patient appeared more dry than volume overloaded as lungs were clear to auscultation, minimal lower extremity edema, and mucous membranes dry. Recommend to hold fluid restrictions, hold Lasix for total of 2 days and then reassess, and give 1 L IV fluids. Of note, patient presented with BP of 218/141 that was decreased to as low as 136/97 within the span of 7 hours and possible that patient experienced relative hypoperfusion that may have led to ATN. Urine sodium 25, creatinine 57, total protein 158, albumin 762. ACR 1337, UPCR 2.8. FENa 1% (indeterminate). CT C/A/P also showed significant renal parenchymal scar formation, which appears worse from imaging on 06/2024 but will obtain renal US to further assess. 10/22/2024 hold Lasix, DC fluid restriction. 10/23/2024 will resume Lasix every other day. DC fluid restriction. Clinically she seems to be rather euvolemic. Will reassess again in a.m. 10/24/2024: Continue with Lasix every other day, will continue to monitor renal panel as patient is seen seems to be in SREE on CKD stage IV likely prerenal, as BUN/creatinine ratio 34 that is greater than 20. As her baseline creatinine is 2.2, and today it is 2.6, we will continue to monitor renal panel. #Hypertensive emergency #Hypertension #Acute decompensated heart failure exacerbation #HFrEF #AHRF secondary to, #Community-acquired pneumonia #COVID-positive #Influenza positive #History of COPD #Transaminitis #Cirrhosis #NSTEMI type II #Polysubstance abuse - Continue management per primary team Thank you for your opportunity to participate nephrology team in this patient's care. The patient's management plan was discussed with my attending physician MD Drake Sandoval MD, PGY2 Attending Provider Attestation/Addendum Patient seen and examined with resident physician Dr. Iyer. Note reviewed, agree with findings and recommendations. Clinical exam seems to be euvolemic with wheezing. Noted 1+ edema. Lasix every other day ordered.
--- NOTE | 2024-10-24 10:32 | ESDS_ITS ---
Planned Discharge Date 10/24/24 DS: Providers Provider Date of admission: 10/19/24 11:26 Primary care physician: Cassidy Porras PA-C Admitting Provider: Kobe Dolan MD Attending Provider on Admission: Jimy Gimenez MD Consults: 10/19/24 23:45 Referral Infection Control Routine Comment: Reason for Infection Control Referral: Patient In Isolation Health Equity Referral - Nutrition Routine Comment: Positive screening for nutrition needs. Health Equity Referral - Safety Routine Comment: Positive screening for safety needs. [facility] Equity Referral - Transportation Routine Comment: Positive screening for transportation needs. Health Equity Referral - Utilities Routine Comment: Positive screening for utility assistance needs. 10/21/24 10:29 Consult to Nephrology Routine Comment: Consulting Provider: Victoria Pulido Attending Provider on DC: Jimy Gimenez MD Discharging Provider: Ayush Grossman MD DS: Diagnosis Problem List Completed Was Problem List Reviewed/Reconciled?: Yes Hospital Course Hospital Course Hospital course: Hospital Course: Ms Johana Freed is a 69-year-old female with PMHx of HFrEF (EF 30 to 35%, 06/2024), CKD stage IV/V, COPD, hypertension, breast cancer status post bilateral mastectomy, and history of methamphetamine use who presented on 10/19 for progressive shortness of breath. She was seen in ED on 10/13 for similar symptoms as she ran out of her Lasix and was thus discharged with a month supply. In June 2024, echo showed EF of 30 to 35%, grade 2/3 diastolic dysfunction, RVSP 62 mmHg. Patient has been non compliant, as she never collected her medications. She was also found to be COVID and influenza positive in the ER. Patient was therefore hospitalized for CHF exacerbation and acute bronchitis due to influenza/COVID infection, as noted on the chest X ray. During this admission, Renal ultrasound showed small kidneys bilaterally with renal cortical thinning as well as moderate bilateral renal parenchymal scar remission. Nephrology was consulted, patient was diuresed adequately and Lasix has now been changed to once every other day to prevent renal injury. Problems on this admission: 1. Acute hypoxic Respiratory Failure 2/2 CHF exacerbation and PNA. 2. Community-acquired LT UL pneumonia. 3. COVID-positive. 4. Influenza positive. 5. COPD. ? treated with Rocephin and Azithromycin[10/19? 6. Acute decompensation of HFrEF 30 - 35% (06/2024) - continue home carvedilol - Lasix 40mg switched to every other day 7. SREE on CKD stage IIIb 8. Hypertensive emergency - added Nifedipine 30mg BID 9. NSTEMI likely type II 10. Polysubstance use 11. Transaminitis 12. Cirrhosis Discharge instructions: - Continue Oseltamivir 1 tab daily for 2 more days. - Increased Carvedilol to 25 mg twice daily - Follow up with PCP in 1 week, recommend switching to Entresto once SREE resolved - Switched furosemide 40 mg from daily to every other day - Continue other home medications as prescribed If you don't have a PCP, you can make an appointment at the [facility]: [address] , [address]. [place] [address] We are grateful to be able to participate in Ms Freed's care. We wish her the best. - Ayush Grossman MD Status at Discharge Cognitive/behavioral status at discharge: Stable and returned to baseline Time Spent with Patient Time attestation: Total time spent providing and/or coordinating discharge services: more than 50% Exam Vital Signs Temp Pulse Resp BP Pulse Ox O2 Del Method O2 Flow Rate 98.0 F 88 18 148/84 H 94 L Room Air 6 10/24/24 08:00 10/24/24 08:58 10/24/24 08:00 10/24/24 08:58 10/24/24 08:00 10/24/24 08:00 10/23/24 07:59 Narrative Exam Constitutional Alert, oriented x3 and on RA at rest, needs 2L oxygen via NC on ambulation HEENT Vision grossly intact. Patent nares. Trachea midline. Respiratory RT breast implant on inspection and diffuse wheezes on auscultation bilaterally. Cardiovascular S1 and S2 audible, RRR. No murmurs or carotid bruit. No gross JVD. Abdominal Soft and non tender to palpation in all quadrants. BS + Genitourinary No bladder tenderness, no flank pain. Normal to palpation. Musculoskeletal Extremities tone within normal limits. No LE edema. Neurological CN II - XII grossly intact. Extremity motor and sensation grossly intact. Skin Warm, dry and intact. No apparent lesions. Psychiatric Patient has a good affect, is cooperative. Discharge Plan Plan Patient Disposition: HOME (Self Care) Patient condition on transfer: Stable Prescriptions/Referrals Prescriptions/Med Rec: New oseltamivir 30 mg Capsule 30 mg PO QDAY 3 Days Qty: 3 0RF carvedilol 25 mg tablet 25 mg PO BID 30 Days Qty: 60 0RF Rx Instructions: must administer with a meal/food furosemide [Lasix] 40 mg tablet 40 mg PO Q OTHER DAY 30 Days Qty: 15 0RF Continued bupropion HCl 150 mg Tablet Sustained-Release 12 Hr 150 mg PO BID tolterodine 4 mg Capsule,Extended Release 24hr 4 mg PO QDAY amlodipine 10 mg tablet 10 mg PO QDAY Qty: 30 1RF prednisone 50 mg tablet 50 mg PO QDAY Qty: 4 0RF albuterol sulfate 90 mcg/actuation HFA aerosol inhaler 1 inh inhalation QID PRN (Reason: shortness of breath or wheezing) Qty: 8.5 0RF albuterol sulfate 90 mcg/actuation HFA aerosol inhaler 2 inh inhalation Q4H PRN (Reason: shortness of breath or wheezing) Qty: 8.5 0RF Discontinued furosemide [Lasix] 20 mg tablet 20 mg PO BID Qty: 60 0RF Referrals: Cassidy Porras PA-C [Primary Care Provider] - Patient/Caregiver Discharge Instructions Discharge Activity: resume usual activities Other Discharge Activity Instructions:: - Continue Oseltamivir 1 tab daily for 2 more days. - Increased Carvedilol to 25 mg twice daily - Follow up with PCP in 1 week, recommend switching to Entresto once SREE resolved - Switched furosemide 40 mg from daily to every other day - Continue other home medications as prescribed If you don't have a PCP, you can make an appointment at the [facility]: [address] , [address]. [place] [address] Education Materials: What Is Heart Failure, Low-Salt Choices Print Language: Cymraes Stand Alone Forms: Fern Award Info., Patient Portal Info Letter Discharge Order Discharge Orders: Discharge (Routine); Ordered 10/24/24 Ordered By: Aakash Matson Quality Discharge Quality Measures VTE prophylaxis
--- NOTE | 2024-10-24 11:05 | PC.SS ---
CHEST PAINTING AND SEALING SUPERVISOR conducted bedside contact with the patient conduct initial assessment and to discuss discharge planning.? Patient confirmed demographic information.? Patient resides with friend, Jonh Jeffries .? Patient utilizes a walker to assist with ambulation.? Patient does not utilize home oxygen.? Patient describes the ability to complete ADL?s independently.? Patient identified friend, Jonh Hawkjo; as medical surrogate decision maker.? Patient utilizes [facility] for PCP services.? Patient utilizes [facility] for medication services. ?Patient does not participate with dialysis.? Patient does not possess any specialty providers.? Plan is for the patient to return to friend?s home at the time of discharge.? Friend, Jonh Jeffries; will provide transportation on behalf of the patient. ?No discharge needs identified by the patient.? No further intervention required at this time, social work associate will be available to address any further concerns.? Next of Kin: Jonh Jeffries D/C Plan: Home
--- NOTE | 2024-10-24 15:30 | PC.SS ---
LEAD MASON TENDER reviewed IMM with patient. Patient to appeal discharge.
--- NOTE | 2024-10-24 15:31 | PC.SS ---
LINING MACHINE OPERATOR contacted [facility]. Appeal submitted to [facility] staff, Carmina. . IMM provided to patient. Copy placed in patient's chart.
[2024-10-24] MEDS: BusPIRone HCL 5 MG TABLET PO (20:29)
[2024-10-24] MEDS: ALBUTEROL/IPRATROPIUM (Duoneb) RT SOL 3 ML NEBU INH (22:33)
[2024-10-25] VITALS (16 sets, daily range): BP systolic 143–177; BP diastolic 88–99; PULSE 55–72; RESP 16–29; TEMP 36.2–36.9; O2SAT 91–97; BMI 28.1
[2024-10-25] MEDS: hydrALAZINE HCL 25 MG TABLET 100 MG PO ×2 (05:07→14:11)
[2024-10-25 06:17] LABS: Basophils # (Auto) 0.1 Thou/mm3 (0.0-0.2); Basophils % (Auto) 1 % (0-2.5); Eosinophils % (Auto) 0 % (0-10); Hematocrit 42.7 % (36.0-46.0); Hemoglobin 13.7 g/dL (12.0-16.0); Immature Granulocytes % (Auto) 2 % (0-0); Immature Granulocytes Auto 0.25 Thou/mm3 (0.00-0.00); Lymphocytes # (Auto) 1.2 Thou/mm3 (1.0-4.8); Lymphocytes % (Auto) 8 % (10-50); Mean Corpuscular HGB Conc 32.1 g/dl (31.0-37.0); Mean Corpuscular Hemoglobin 31.1 pg (25.0-35.0); Mean Corpuscular Volume 97 fL (80-100); Monocytes # (Auto) 0.8 Thou/mm3 (0.0-0.8); Monocytes % (Auto) 5 % (0-12); Neutrophils # (Auto) 12.3 Thou/mm3 (1.8-7.7); Neutrophils % (Auto) 85 % (37-80); Nucleated Red Blood Cell % 0 /100 WBC (0); Platelet Count 334 Thou/mm3 (140-440); RDW Standard Deviation 52.4 fL (36.4-46.3); White Blood Count 14.5 Thou/mm3 (3.6-11.0)
[2024-10-25 06:49] LABS: Albumin, Serum 3.3 gm/dL (3.4-4.8); Anion Gap 9 (7-16); BUN/Creatinine Ratio 35 Ratio (12-20); Blood Urea Nitrogen 91 mg/dL (9-23); Calcium 8.6 mg/dL (8.3-10.6); Calcium (Corrected) 9.2 mg/dL (8.5-10.1); Carbon Dioxide 23.2 mMol/L (20.0-31.0); Chloride 112 mMol/L (98-107); Creatinine (Component) 2.6 mg/dL (0.6-1.3); Estimated Creatinine Clearance 19.7 mL/min (>60); Glucose 125 mg/dL (74-106); Osmolality,Calculated 315 (275-295); Phosphorous 3.2 mg/dL (2.4-5.1); Potassium 5.5 mMol/L (3.4-5.1); Sodium 144 mMol/L (136-145); eGFR 19 See Note
[2024-10-25] MEDS: DEXTROSE 50%-WATER INJ 50 ML SYRINGE 100 ML IV (09:14)
[2024-10-25] MEDS: DOXYCYCLINE 100 MG TABLET PO (09:17)
[2024-10-25] MEDS: cefTRIAXone/D5w 1gm IV premix 50 ML IV (09:17)
[2024-10-25] MEDS: NIFEdipine XL 30 MG TABCR PO ×2 (09:17→14:12)
[2024-10-25] MEDS: PANTOPRAZOLE 40 MG TABLET PO (09:17)
[2024-10-25] MEDS: ENOXAPARIN SOD INJ 30 MG/0.3 ML SYRINGE SC (09:17)
[2024-10-25] MEDS: BusPIRone HCL 5 MG TABLET PO (09:17)
[2024-10-25] MEDS: SOD POLYSTYRENE SULFON SUSP 15 GM/60 ML BTL PO (09:18)
[2024-10-25] MEDS: carVEDILOL 12.5 MG TABLET 25 MG PO ×2 (09:18→17:05)
[2024-10-25] MEDS: INSULIN HUM REGULAR 1 UNIT/0.01 ML (PER UNIT) 5 UNIT IV (09:19)
[2024-10-25] MEDS: RINGERS LACTATED 1000 ML 1,000 ML 100 ML IV (09:19)
--- NOTE | 2024-10-25 10:03 | ESPR_ITS ---
Documentation for date of: 10/25/24 Subjective Subjective Interval history: Johana Freed is a 69-year-old female with PMHx of HFrEF (EF 30 to 35%, 06/2024), CKD stage IV/V, COPD, hypertension, breast cancer status post bilateral mastectomy, and history of methamphetamine use who presented on 10/19 for progressive shortness of breath. She states that symptoms started a few weeks ago with associated cough, but no bodyaches, fever, chills, loose bowel movements. Also denies recent sick contacts. She does not follow-up with an outpatient investment advisor nor hose wrapper, and has been noncompliant with medications due to difficulties getting refills. Continues to use methamphetamine, but states that she has been trying to quit. Of note, patient was in ED on 10/13 for similar symptoms as she ran out of her Lasix and was thus discharged with a month supply. Additionally, patient was discharged in June 2024 for CHF exacerbation. At that time, echo showed EF of 30 to 35%, grade 2/3 diastolic dysfunction, RVSP 62 mmHg. renal ultrasound showed small kidneys bilaterally with renal cortical thinning as well as moderate bilateral renal parenchymal scar remission. In ED, BP 218/141, otherwise vital stable. CBC unremarkable. BUN 73, creatinine 2.4 (baseline 2.2), GFR 21, AST 113, ALT 102, troponin 0.075, BNP > 3200. UA: 3+ protein, 3+ glucose, 2+ blood, 49 RBC, no bacteria. U tox negative. CXR: Mild to moderate CHF. CT C/A/P: Left upper lobe pneumonia, significant bilateral renal parenchymal scar formation, cirrhosis. CT head: Negative. Given carvedilol, DuoNebs, Lasix, hydralazine, nitroglycerin, Tamiflu. 10/21: Seen and examined at bedside in telemetry, resting comfortably in bed. No acute overnight events reported. Noted to have an increase in creatinine from 2.4 to 3.1 overnight while on Lasix 40 mg IV daily, that was then discontinued by primary team today. Notified by nursing staff that I/O may be inaccurate as patient frequently dumps urine. However, patient states that she has been urinating frequently. Recommend to hold fluid restrictions, give 1 L IVF, and to hold lasix for total of 2 days and reassess. 10/22/2024 patient currently seen in telemetry. Currently in [facility]- isolation room. Feeling tad better than yesterday. Creatinine now 3.0. BUN still 90. Spoke to primary team-hold Lasix and DC fluid restriction. Clinically looks rather euvolemic. Do not seem to be in fluid overload. Complaining of generalized pain all over the body from the viral illness. Blood pressure stable. WBC 13.9, hemoglobin 12.3, platelets 283. Sodium 145, potassium 4, bicarbonate 24.6, BUN 90, creatinine 3.0, calcium 8.8, magnesium 1.6, LFTs normal, albumin 3.1, urine microalbumin creatinine 1337. Urine sodium 25 in the setting of diuretics consistent with dehydration. 10/23/2024 patient currently seen in telemetry. In [place] [id number] isolation room. Feeling much better today. Blood pressure 123/72, heart rate 62. WBC normal, platelets 41. Sodium 142, potassium 4.6, BUN 74, creatinine 2.9, calcium 8.9, phosphorus 2.6, albumin 3.1 Patient able to eat and drink well. BUN and creatinine improving. However noted to have some edema. Will resume Lasix every other day. Patient ejection fraction 30 to 35% during last admission. Suggested to ambulate. Discharge planning once stable. 10/24/2024: Patient was interviewed and examined at the bedside this morning. She reported doing well. She reported that she would not like to eat any fried potatoes. Still tends to have 0-1 bilateral lower limb edema. Her creatinine improved to 2.6, baseline 2.2, but he still seems to be in SREE. We will continue with Lasix every other day. 10/25/24: Patient was sleeping comfortably on her bed. Reported doing well. Still tends to have 0-1+ BL LL pitting edema. Creatinine stable at 2.6 and we will give 1 L maintenance fluid 100cc/hr and continue to monitor renal panel. Exam Vital Signs Temp Pulse Resp BP Pulse Ox O2 Del Method O2 Flow Rate 98.4 F 66 29 H 158/95 H 93 L Room Air 6 10/25/24 08:00 10/25/24 09:18 10/25/24 08:00 10/25/24 09:18 10/25/24 08:00 10/25/24 08:00 10/23/24 07:59 Narrative Exam General: No acute distress, Alert and Oriented x 3 HEENT: Moist mucous membranes, oropharynx clear Neck: Supple, No masses, No JVD CVS: S1S2 Regular rate and rhythm, No murmurs, rubs or gallops Lungs: Clear to auscultation with no accessory use, no wheeze no rhonchi Abd: Soft, NT/ND, +BS, no organomegaly Ext: 1+ lower limb edema, warm and well perfused Skin: No rash Psych: Mildly agitated because was not offered the food she wanted. Objective Labs 10/25/24 04:43 10/25/24 10:40 Labs: Laboratory Results - last 24 hr 10/24/24 10/25/24 14:02 04:43 WBC Cancelled 14.5 H RBC Cancelled 4.40 Hgb Cancelled 13.7 Hct Cancelled 42.7 MCV Cancelled 97 MCH Cancelled 31.1 MCHC Cancelled 32.1 RDW Std Deviation Cancelled 52.4 H Plt Count Cancelled 334 Neut % (Auto) Cancelled 85 H Lymph % (Auto) Cancelled 8 L [place] % (Auto) Cancelled 5 Eos % (Auto) Cancelled 0 Baso % (Auto) Cancelled 1 Neut # (Auto) Cancelled 12.3 H Lymph # (Auto) Cancelled 1.2 [place] # (Auto) Cancelled 0.8 Eos # (Auto) Cancelled 0.0 Baso # (Auto) Cancelled 0.1 Immature Gran # (Auto) Cancelled 0.25 H Absolute Nucleated RBC Cancelled 0.00 Immature Gran % Cancelled 2 H Nucleated RBC % Cancelled 0 Sodium 144 Potassium 5.5 H D Chloride 112 H Carbon Dioxide 23.2 Anion Gap 9 BUN 91 H Creatinine 2.6 H Estim Creat Clear Calc 19.7 L eGFR 19 L BUN/Creatinine Ratio 35 H Glucose 125 H Calculated Osmolality 315 H Calcium 8.6 Corrected Calcium 9.2 Phosphorus 3.2 Albumin 3.3 L Quality Measures Quality Measures VTE prophylaxis Advance care planning discussed with:: patient Assessment & Plan Assessment Current Active Medications: Generic Name Dose Route Start Last Admin Trade Name Freq PRN Reason Stop Dose Admin Acetaminophen 650 mg 10/20/24 06:49 Acetaminophen 325 Mg Tablet PO 11/18/24 11:25 Q6H PRN pain 1-3 and Fever >100.4 Albuterol/Ipratropium 3 ml 10/23/24 10:05 10/24/24 22:33 Albuterol/Ipratropium (Duoneb) Rt Dee 3 Ml Nebu INH 11/18/24 14:59 3 ml Q4HRRT PRN Administration SHORTNESS OF BREATH OR WHEEZE Buspirone HCl 5 mg 10/24/24 21:00 10/25/24 09:17 Buspirone Hcl 5 Mg Tablet PO 11/23/24 20:59 5 mg BID KENNEDY Administration Carvedilol 25 mg 10/21/24 17:30 10/25/24 09:18 Carvedilol 12.5 Mg Tablet PO 11/20/24 17:29 25 mg BIDWM KENNEDY Administration Doxycycline Hyclate 100 mg 10/22/24 09:45 10/25/24 09:17 Doxycycline 100 Mg Tablet PO 10/29/24 09:44 100 mg BID KENNEDY Administration Enoxaparin Sodium 30 mg 10/22/24 09:00 10/25/24 09:17 Enoxaparin Sod Inj 30 Mg/0.3 Ml Syringe SC 11/03/24 08:59 30 mg QDAY KENNEDY Administration Protocol Hydralazine HCl 100 mg 10/21/24 14:00 10/25/24 05:07 Hydralazine Hcl 25 Mg Tablet PO 11/20/24 13:59 100 mg TID KENNEDY Administration Ceftriaxone Sodium/Dextrose 50 mls @ 100 mls/hr 10/19/24 14:27 10/25/24 09:17 Rocephin/D5w 1gm Iv Premix IV 10/26/24 14:26 100 mls/hr QDAY KENNEDY Administration Lactated Ringer's 1,000 mls @ 100 mls/hr 10/25/24 08:00 10/25/24 09:19 Lactated Ringers IV 11/24/24 07:59 100 mls/hr .Q10H KENNEDY Administration Methylprednisolone Sodium Succinate 40 mg 10/19/24 11:45 10/25/24 09:19 Methylprednisolone Sod Succ 40 Mg Vial IVP 10/26/24 11:44 40 mg QDAY KENNEDY Administration Nifedipine 30 mg 10/22/24 11:45 10/25/24 09:17 Nifedipine Xl 30 Mg Tabcr PO 11/21/24 11:44 30 mg BID KENNEDY Administration Ondansetron HCl 4 mg 10/19/24 11:26 Ondansetron Inj 2 Mg/Ml Inj 2 Ml IV 11/18/24 11:25 Q6H PRN NAUSEA OR VOMITING Protocol Pantoprazole Sodium 40 mg 10/20/24 09:00 10/25/24 09:17 Pantoprazole 40 Mg Tablet PO 11/19/24 08:59 40 mg QDAY KENNEDY Administration Sennosides 1 tab 10/19/24 11:26 Senna Tablet PO 11/18/24 11:25 QDAY PRN constipation Protocol Plan Johana Freed is a 69-year-old female with PMHx of HFrEF (EF 30 to 35%, 06/2024), CKD stage IV/V, COPD, hypertension, breast cancer status post bilateral mastectomy, and history of methamphetamine use who was admitted for management of acute decompensated CHF exacerbation and hypertensive emergency. Nephrology consulted for evaluation of acute on chronic kidney injury. #SREE on CKD stage IV, improving More likely 2/2 prerenal azotemia in the setting of aggressive diuresis DDx: ATN vs cardiorenal syndrome type 2 vs less likely hepatorenal syndrome Baseline Cr 2.2 with noted progressive elevation in Cr. Nephrology consulted for overnight elevation Cr from 2.4 to 3.1. Previously on 40 mg IV Lasix that has since been discontinued. Upon exam, patient appeared more dry than volume overloaded as lungs were clear to auscultation, minimal lower extremity edema, and mucous membranes dry. Recommend to hold fluid restrictions, hold Lasix for total of 2 days and then reassess, and give 1 L IV fluids. Of note, patient presented with BP of 218/141 that was decreased to as low as 136/97 within the span of 7 hours and possible that patient experienced relative hypoperfusion that may have led to ATN. Urine sodium 25, creatinine 57, total protein 158, albumin 762. ACR 1337, UPCR 2.8. FENa 1% (indeterminate). CT C/A/P also showed significant renal parenchymal scar formation, which appears worse from imaging on 06/2024 but will obtain renal US to further assess. 10/22/2024 hold Lasix, DC fluid restriction. 10/23/2024 will resume Lasix every other day. DC fluid restriction. Clinically she seems to be rather euvolemic. Will reassess again in a.m. 10/24/2024: Continue with Lasix every other day, will continue to monitor renal panel as patient is seen seems to be in SREE on CKD stage IV likely prerenal, as BUN/creatinine ratio 34 that is greater than 20. As her baseline creatinine is 2.2, and today it is 2.6, we will continue to monitor renal panel. 10/25/24: Cr stable at 2.6, will hold lasix and start the patient on 100cc/hr maintenance fluid for 1 L. We will continue to monitor renal panel. #Hypertension -Continue with Carvedilol 25mg BID and hydralazine 100mg TID -Increased the dose of Nifedipine to 30mg TID #Hypertensive emergency #Acute decompensated heart failure exacerbation #HFrEF #AHRF secondary to, #Community-acquired pneumonia #COVID-positive #Influenza positive #History of COPD #Transaminitis #Cirrhosis #NSTEMI type II #Polysubstance abuse - Continue management per primary team Thank you for your opportunity to participate nephrology team in this patient's care. The patient's management plan was discussed with my attending physician MD Drake Sandoval MD, PGY2 Attending Provider Attestation/Addendum Patient seen and examined with resident physician Dr. Iyer. Note reviewed, agree with findings and recommendations. In covid isolation room. BUN/Cr elevated. Clinical exam seems to be euvolemic with wheezing. Noted 1+ edema. Lasix every other day ordered. gave 1l gentle fluids ambulate.
[2024-10-25 11:14] LABS: Albumin, Serum 3.4 gm/dL (3.4-4.8); Anion Gap 11 (7-16); BUN/Creatinine Ratio 35 Ratio (12-20); Blood Urea Nitrogen 88 mg/dL (9-23); Calcium 8.4 mg/dL (8.3-10.6); Calcium (Corrected) 8.9 mg/dL (8.5-10.1); Carbon Dioxide 23.3 mMol/L (20.0-31.0); Chloride 109 mMol/L (98-107); Creatinine (Component) 2.5 mg/dL (0.6-1.3); Estimated Creatinine Clearance 20.4 mL/min (>60); Glucose 157 mg/dL (74-106); Osmolality,Calculated 314 (275-295); Phosphorous 3.2 mg/dL (2.4-5.1); Potassium 4.6 mMol/L (3.4-5.1); Sodium 143 mMol/L (136-145); eGFR 20 See Note
--- NOTE | 2024-10-25 15:27 | PC.SS ---
Rui agrees with termination of Hospital services.? Beneficiary Liability Starts on 10/26/2024.? [employer] updated medical team.
--- NOTE | 2024-10-25 15:38 | PD.RESPRO ---
Documentation for date of: 10/25/24 Subjective Subjective Interval history: Patient seen at bedside. No acute overnight events. She complains of increased coughing, nonproductive but no difficulty breathing. Examination findings-wheezing bilaterally in upper lung shin She is saturating 96% on room air. Labs reviewed, WBC downtrending, potassium elevated 4.5. Will correct with 5 units of IV insulin and repeat potassium. Anticipate DC within 24 hours. 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 Eyes open, symmetrical, & clear CARDIO: No chest pain on palpation. Heart RRR, no obvious murmurs PULM: No noted coughing/dyspnea. Wheezing bilaterally in upper and lower lung shin with some coarse breath sounds on the right. GI: Abdomen soft, nondistended, no pain on palpation. 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 SKIN/MSK/EXT: No wounds/rashes/edema/amputations, no pain on palpation. Pedal pulses present B/L Objective Labs 10/25/24 04:43 10/25/24 10:40 Labs: Laboratory Results - last 24 hr 10/24/24 10/25/24 10/25/24 14:02 04:43 10:40 WBC Cancelled 14.5 H RBC Cancelled 4.40 Hgb Cancelled 13.7 Hct Cancelled 42.7 MCV Cancelled 97 MCH Cancelled 31.1 MCHC Cancelled 32.1 RDW Std Deviation Cancelled 52.4 H Plt Count Cancelled 334 Neut % (Auto) Cancelled 85 H Lymph % (Auto) Cancelled 8 L [place] % (Auto) Cancelled 5 Eos % (Auto) Cancelled 0 Baso % (Auto) Cancelled 1 Neut # (Auto) Cancelled 12.3 H Lymph # (Auto) Cancelled 1.2 [place] # (Auto) Cancelled 0.8 Eos # (Auto) Cancelled 0.0 Baso # (Auto) Cancelled 0.1 Immature Gran # (Auto) Cancelled 0.25 H Absolute Nucleated RBC Cancelled 0.00 Immature Gran % Cancelled 2 H Nucleated RBC % Cancelled 0 Sodium 144 143 Potassium 5.5 H D 4.6 D Chloride 112 H 109 H Carbon Dioxide 23.2 23.3 Anion Gap 9 11 BUN 91 H 88 H Creatinine 2.6 H 2.5 H Estim Creat Clear Calc 19.7 L 20.4 L eGFR 19 L 20 L BUN/Creatinine Ratio 35 H 35 H Glucose 125 H 157 H Calculated Osmolality 315 H 314 H Calcium 8.6 8.4 Corrected Calcium 9.2 8.9 Phosphorus 3.2 3.2 Albumin 3.3 L 3.4 Quality Measures Quality Measures VTE prophylaxis Advance care planning discussed with:: patient Assessment & Plan Assessment Current Active Medications: Generic Name Dose Route Start Last Admin Trade Name Freq PRN Reason Stop Dose Admin Acetaminophen 650 mg 10/20/24 06:49 Acetaminophen 325 Mg Tablet PO 11/18/24 11:25 Q6H PRN pain 1-3 and Fever >100.4 Albuterol/Ipratropium 3 ml 10/23/24 10:05 10/24/24 22:33 Albuterol/Ipratropium (Duoneb) Rt Dee 3 Ml Nebu INH 11/18/24 14:59 3 ml Q4HRRT PRN Administration SHORTNESS OF BREATH OR WHEEZE Buspirone HCl 5 mg 10/24/24 21:00 10/25/24 09:17 Buspirone Hcl 5 Mg Tablet PO 11/23/24 20:59 5 mg BID KENNEDY Administration Carvedilol 25 mg 10/21/24 17:30 10/25/24 09:18 Carvedilol 12.5 Mg Tablet PO 11/20/24 17:29 25 mg BIDWM KENNEDY Administration Doxycycline Hyclate 100 mg 10/22/24 09:45 10/25/24 09:17 Doxycycline 100 Mg Tablet PO 10/29/24 09:44 100 mg BID KENNEDY Administration Enoxaparin Sodium 30 mg 10/22/24 09:00 10/25/24 09:17 Enoxaparin Sod Inj 30 Mg/0.3 Ml Syringe SC 11/03/24 08:59 30 mg QDAY KENNEDY Administration Protocol Hydralazine HCl 100 mg 10/21/24 14:00 10/25/24 14:11 Hydralazine Hcl 25 Mg Tablet PO 11/20/24 13:59 100 mg TID KENNEDY Administration Ceftriaxone Sodium/Dextrose 50 mls @ 100 mls/hr 10/19/24 14:27 10/25/24 09:17 Rocephin/D5w 1gm Iv Premix IV 10/26/24 14:26 100 mls/hr QDAY KENNEDY Administration Lactated Ringer's 1,000 mls @ 100 mls/hr 10/25/24 08:00 10/25/24 09:19 Lactated Ringers IV 11/24/24 07:59 100 mls/hr .Q10H KENNEDY Administration Methylprednisolone Sodium Succinate 40 mg 10/19/24 11:45 10/25/24 09:19 Methylprednisolone Sod Succ 40 Mg Vial IVP 10/26/24 11:44 40 mg QDAY KENNEDY Administration Nifedipine 30 mg 10/25/24 14:00 10/25/24 14:12 Nifedipine Xl 30 Mg Tabcr PO 11/24/24 13:59 30 mg TID KENNEDY Administration Ondansetron HCl 4 mg 10/19/24 11:26 Ondansetron Inj 2 Mg/Ml Inj 2 Ml IV 11/18/24 11:25 Q6H PRN NAUSEA OR VOMITING Protocol Pantoprazole Sodium 40 mg 10/20/24 09:00 10/25/24 09:17 Pantoprazole 40 Mg Tablet PO 11/19/24 08:59 40 mg QDAY KENNEDY Administration Sennosides 1 tab 10/19/24 11:26 Senna Tablet PO 11/18/24 11:25 QDAY PRN constipation Protocol Plan Summary: The patient is a 69-year-old female with past medical history of HFrEF (EF 30 to 35% on 06/2024), CKD stage IIIb, COPD, meth use, hypertension, and breast cancer status post bilateral mastectomy was admitted to the hospital on 10/19/2023 for acute compensated heart failure exacerbation, community-acquired pneumonia (COVID and influenza positive), and hypertensive urgency. #Acute hypoxic Respiratory Failure 2/2 CHF exacerbation and PNA. #Community-acquired LT UL pneumonia. #COVID-positive. #Influenza positive. #COPD. ? Patient states that she gets really short of breath, has gotten progressively worse over the past few weeks. ? Chest/abdomen/pelvis CT : left upper lobe pneumonia ? Patient was COVID and influenza A positive in the ED - 10/22 Patient gets SOB on ambulation to bedside commode, will watch closely and diurese gently if needed. Plan: - Continue Oseltamivir ? Continue Solumedrol 40mg ? DC Abx- Rocephin and Doxyxycline ? DuoNebs every 4 hours PRN #Acute decompensation of HFrEF 30 - 35% (06/2024). ? BNP : > 3280. ? Chest x-ray : moderate CHF pattern. Plan: - Lasix every other day per nephro recs - continue carvedilol. #SREE on CKD stage IIIb. ? Patient has baseline creatinine of around 2.2 ? Creatinine on admission was 2.4, likely prerenal in the setting of hypertension and heart failure exacerbation ? Patient received carvedilol 12.5 mg x 1 and 25 mg x 1 in the ED as well as hydralazine 10 mg x 1 in the ED. - 10/21 : Nephrology consultation with Dr. Pulido, appreciate recommendations. Given 1 L IV fluid bolus, and fluid restriction was decreased to 2 L daily. - 10/22 : Cr 3.1 -> 3.0 and GFR 15 -> 16. Plan: - Nifedipine 30mg BID. - Continue hydralazine to 100 mg TID and carvedilol to 25 mg BID. - Per Nephrology recommendations fluid restriction at this time. - Avoid nephrotoxic agents. #Hypertensive emergency- resolved. #NSTEMI likely type II. #Polysubstance use. ? Initial blood pressure = 218/141. ? Troponins of 0.075 -> wnl. ? Patient was previously seen 1 week ago and troponins were 0.127 indicating that troponins on this admission are most likely residual. ? Elevated troponins mostly in the setting also of hypertensive urgency. ? EKG did not show any ST changes. ? Patient admitted to using meth and marijuana around 4 to 5 days ago. ? U tox : negative. Plan: ? Keep K >4 and Mg >2. ? Continue carvedilol 25 mg twice daily. ? Referred to social welfare research worker. ? Counseled the patient on importance of abstaining from illicit drugs. #Transaminitis. #Cirrhosis. ? Patient came in with AST 113, ALT 102, alkaline phosphatase 184. ? Chest/abdomen/pelvis CT showed cirrhosis. ? Likely in the setting of polysubstance use. - AST 12, ALT 51, ALP 140 today. Plan: ? Will continue to monitor. Health maintenance: Disposition: added nifedipine with good BP control, anticipate DC in 24 hours once able to ambulate on RA and SREE improved. Diet: Cardiac. GI prophylaxis: protonix. DVT prophylaxis: lovenox. Code: Full code. Case was discussed with attending physician Dr Ammy Smith MD PGY-1
--- NOTE | 2024-10-25 17:15 | PC.NURSE ---
Per Dr. Doherty stop LR after 1L has finished.
[2024-10-26] VITALS (11 sets, daily range): BP systolic 139–171; BP diastolic 91–103; PULSE 58–72; RESP 20–23; TEMP 36.1–36.7; O2SAT 94–98; BMI 28.1
[2024-10-26 06:55] LABS: Albumin, Serum 3.4 gm/dL (3.4-4.8); Anion Gap 10 (7-16); BUN/Creatinine Ratio 39 Ratio (12-20); Blood Urea Nitrogen 94 mg/dL (9-23); Calcium 8.3 mg/dL (8.3-10.6); Calcium (Corrected) 8.8 mg/dL (8.5-10.1); Carbon Dioxide 24.9 mMol/L (20.0-31.0); Chloride 108 mMol/L (98-107); Creatinine (Component) 2.4 mg/dL (0.6-1.3); Estimated Creatinine Clearance 21.3 mL/min (>60); Glucose 113 mg/dL (74-106); Osmolality,Calculated 314 (275-295); Phosphorous 4.5 mg/dL (2.4-5.1); Potassium 4.9 mMol/L (3.4-5.1); Sodium 143 mMol/L (136-145); eGFR 21 See Note
--- NOTE | 2024-10-26 08:52 | PD.RESPRO ---
Documentation for date of: 10/26/24 Subjective Subjective Interval history: Johana Freed is a 69-year-old female with PMHx of HFrEF (EF 30 to 35%, 06/2024), CKD stage IV/V, COPD, hypertension, breast cancer status post bilateral mastectomy, and history of methamphetamine use who presented on 10/19 for progressive shortness of breath. She states that symptoms started a few weeks ago with associated cough, but no bodyaches, fever, chills, loose bowel movements. Also denies recent sick contacts. 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 Continues to use methamphetamine, but states that she has been trying to quit. Of note, patient was in ED on 10/13 for similar symptoms as she ran out of her Lasix and was thus discharged with a month supply. Additionally, patient was discharged in June 2024 for CHF exacerbation. At that time, echo showed EF of 30 to 35%, grade 2/3 diastolic dysfunction, RVSP 62 mmHg. renal ultrasound showed small kidneys bilaterally with renal cortical thinning as well as moderate bilateral renal parenchymal scar remission. In ED, BP 218/141, otherwise vital stable. CBC unremarkable. BUN 73, creatinine 2.4 (baseline 2.2), GFR 21, AST 113, ALT 102, troponin 0.075, BNP > 3200. UA: 3+ protein, 3+ glucose, 2+ blood, 49 RBC, no bacteria. U tox negative. CXR: Mild to moderate CHF. CT C/A/P: Left upper lobe pneumonia, significant bilateral renal parenchymal scar formation, cirrhosis. CT head: Negative. Given carvedilol, DuoNebs, Lasix, hydralazine, nitroglycerin, Tamiflu. 10/21: Seen and examined at bedside in telemetry, resting comfortably in bed. No acute overnight events reported. Noted to have an increase in creatinine from 2.4 to 3.1 overnight while on Lasix 40 mg IV daily, that was then discontinued by primary team today. Notified by nursing staff that I/O may be inaccurate as patient frequently dumps urine. However, patient states that she has been urinating frequently. Recommend to hold fluid restrictions, give 1 L IVF, and to hold lasix for total of 2 days and reassess. 10/22/2024 patient currently seen in telemetry. Currently in [facility]- isolation room. Feeling tad better than yesterday. Creatinine now 3.0. BUN still 90. Spoke to primary team-hold Lasix and DC fluid restriction. Clinically looks rather euvolemic. Do not seem to be in fluid overload. Complaining of generalized pain all over the body from the viral illness. Blood pressure stable. WBC 13.9, hemoglobin 12.3, platelets 283. Sodium 145, potassium 4, bicarbonate 24.6, BUN 90, creatinine 3.0, calcium 8.8, magnesium 1.6, LFTs normal, albumin 3.1, urine microalbumin creatinine 1337. Urine sodium 25 in the setting of diuretics consistent with dehydration. 10/23/2024 patient currently seen in telemetry. In [place] [id number] isolation room. Feeling much better today. Blood pressure 123/72, heart rate 62. WBC normal, platelets 41. Sodium 142, potassium 4.6, BUN 74, creatinine 2.9, calcium 8.9, phosphorus 2.6, albumin 3.1 Patient able to eat and drink well. BUN and creatinine improving. However noted to have some edema. Will resume Lasix every other day. Patient ejection fraction 30 to 35% during last admission. Suggested to ambulate. Discharge planning once stable. 10/24/2024: Patient was interviewed and examined at the bedside this morning. She reported doing well. She reported that she would not like to eat any fried potatoes. Still tends to have 0-1 bilateral lower limb edema. Her creatinine improved to 2.6, baseline 2.2, but he still seems to be in SREE. We will continue with Lasix every other day. 10/25/24: Patient was sleeping comfortably on her bed. Reported doing well. Still tends to have 0-1+ BL LL pitting edema. Creatinine stable at 2.6 and we will give 1 L maintenance fluid 100cc/hr and continue to monitor renal panel. 10/26/2024, the patient was interviewed and examined at the bedside this morning. She reported not doing good. Vitals were fairly stable with hypertension of 171/103, saturating 97% on room air. Chemistry panel significant for BUN 94 and creatinine 2.4 creatinine improved from 2.6 yesterday. We will repeat urine electrolytes again including urea nitrogen. Alternate day PO lasix, consider adding sglt2 and ARB for renal protection during discharge. Exam Vital Signs Temp Pulse Resp BP Pulse Ox O2 Del Method O2 Flow Rate 97.0 F 67 22 H 171/103 H 97 Room Air 6 10/26/24 08:00 10/26/24 08:00 10/26/24 08:00 10/26/24 08:00 10/26/24 08:00 10/26/24 08:00 10/26/24 08:00 Narrative Exam General: No acute distress, Alert and Oriented x 3 HEENT: Moist mucous membranes, oropharynx clear Neck: Supple, No masses, No JVD CVS: S1S2 Regular rate and rhythm, No murmurs, rubs or gallops Lungs: Clear to auscultation with no accessory use, no wheeze no rhonchi Abd: Soft, NT/ND, +BS, no organomegaly Ext: No edema, warm and well perfused Skin: No rash Psych: Mildly agitated Objective Labs 10/25/24 04:43 10/26/24 04:40 Labs: Laboratory Results - last 24 hr 10/25/24 10/26/24 10:40 04:40 Sodium 143 143 Potassium 4.6 D 4.9 Chloride 109 H 108 H Carbon Dioxide 23.3 24.9 Anion Gap 11 10 BUN 88 H 94 H Creatinine 2.5 H 2.4 H Estim Creat Clear Calc 20.4 L 21.3 L eGFR 20 L 21 L BUN/Creatinine Ratio 35 H 39 H Glucose 157 H 113 H Calculated Osmolality 314 H 314 H Calcium 8.4 8.3 Corrected Calcium 8.9 8.8 Phosphorus 3.2 4.5 Albumin 3.4 3.4 Quality Measures Quality Measures VTE prophylaxis Advance care planning discussed with:: patient Assessment & Plan Assessment Current Active Medications: Generic Name Dose Route Start Last Admin Trade Name Freq PRN Reason Stop Dose Admin Acetaminophen 650 mg 10/20/24 06:49 Acetaminophen 325 Mg Tablet PO 11/18/24 11:25 Q6H PRN pain 1-3 and Fever >100.4 Albuterol/Ipratropium 3 ml 10/23/24 10:05 10/24/24 22:33 Albuterol/Ipratropium (Duoneb) Rt Dee 3 Ml Nebu INH 11/18/24 14:59 3 ml Q4HRRT PRN Administration SHORTNESS OF BREATH OR WHEEZE Buspirone HCl 5 mg 10/24/24 21:00 10/25/24 21:13 Buspirone Hcl 5 Mg Tablet PO 11/23/24 20:59 Not Given BID KENNEDY Carvedilol 25 mg 10/21/24 17:30 10/25/24 17:05 Carvedilol 12.5 Mg Tablet PO 11/20/24 17:29 25 mg BIDWM KENNEDY Administration Enoxaparin Sodium 30 mg 10/22/24 09:00 10/25/24 09:17 Enoxaparin Sod Inj 30 Mg/0.3 Ml Syringe SC 11/03/24 08:59 30 mg QDAY KENNEDY Administration Protocol Furosemide 40 mg 10/26/24 21:00 Furosemide Inj 10 Mg/Ml 4ml Vial IVP 11/25/24 20:59 [id number]@2100 KENNEDY Hydralazine HCl 100 mg 10/21/24 14:00 10/26/24 05:15 Hydralazine Hcl 25 Mg Tablet PO 11/20/24 13:59 Not Given TID KENNEDY Methylprednisolone Sodium Succinate 40 mg 10/19/24 11:45 10/25/24 09:19 Methylprednisolone Sod Succ 40 Mg Vial IVP 10/26/24 11:44 40 mg QDAY KENNEDY Administration Nifedipine 30 mg 10/25/24 14:00 10/26/24 05:16 Nifedipine Xl 30 Mg Tabcr PO 11/24/24 13:59 Not Given TID KENNEDY Ondansetron HCl 4 mg 10/19/24 11:26 Ondansetron Inj 2 Mg/Ml Inj 2 Ml IV 11/18/24 11:25 Q6H PRN NAUSEA OR VOMITING Protocol Pantoprazole Sodium 40 mg 10/20/24 09:00 10/25/24 09:17 Pantoprazole 40 Mg Tablet PO 11/19/24 08:59 40 mg QDAY KENNEDY Administration Sennosides 1 tab 10/19/24 11:26 Senna Tablet PO 11/18/24 11:25 QDAY PRN constipation Protocol Diann Johana Freed is a 69-year-old female with PMHx of HFrEF (EF 30 to 35%, 06/2024), CKD stage IV/V, COPD, hypertension, breast cancer status post bilateral mastectomy, and history of methamphetamine use who was admitted for management of acute decompensated CHF exacerbation and hypertensive emergency. Nephrology consulted for evaluation of acute on chronic kidney injury. #SREE on CKD stage IV, improving More likely 2/2 prerenal azotemia in the setting of aggressive diuresis DDx: ATN vs cardiorenal syndrome type 2 vs less likely hepatorenal syndrome Baseline Cr 2.2 with noted progressive elevation in Cr. Nephrology consulted for overnight elevation Cr from 2.4 to 3.1. Previously on 40 mg IV Lasix that has since been discontinued. Upon exam, patient appeared more dry than volume overloaded as lungs were clear to auscultation, minimal lower extremity edema, and mucous membranes dry. Recommend to hold fluid restrictions, hold Lasix for total of 2 days and then reassess, and give 1 L IV fluids. Of note, patient presented with BP of 218/141 that was decreased to as low as 136/97 within the span of 7 hours and possible that patient experienced relative hypoperfusion that may have led to ATN. Urine sodium 25, creatinine 57, total protein 158, albumin 762. ACR 1337, UPCR 2.8. FENa 1% (indeterminate). CT C/A/P also showed significant renal parenchymal scar formation, which appears worse from imaging on 06/2024 but will obtain renal US to further assess. 10/22/2024 hold Lasix, DC fluid restriction. 10/23/2024 will resume Lasix every other day. DC fluid restriction. Clinically she seems to be rather euvolemic. Will reassess again in a.m. 10/24/2024: Continue with Lasix every other day, will continue to monitor renal panel as patient is seen seems to be in SREE on CKD stage IV likely prerenal, as BUN/creatinine ratio 34 that is greater than 20. As her baseline creatinine is 2.2, and today it is 2.6, we will continue to monitor renal panel. 10/25/24: Cr stable at 2.6, will hold lasix and start the patient on 100cc/hr maintenance fluid for 1 L. We will continue to monitor renal panel. 10/26/2024: Creatinine improving to 2.4, ordered urine electrolytes including urea nitrogen. BUN increased to 94, BUN/creatinine ratio increasing to 39 suggestive of prerenal SREE stage IV, versus improvement in possible cardiorenal syndrome. Consider adding BETTY inhibitors/ARB including SGLT2 inhibitors during discharge to prevent further kidney damage. #Hypertension -Continue with Carvedilol 25mg BID and hydralazine 100mg TID -Increased the dose of Nifedipine to 30mg TID -Consider adding BETTY inhibitors/ARB including SGLT2 inhibitor during discharge #Hypertensive emergency #Acute decompensated heart failure exacerbation #HFrEF #AHRF secondary to, #Community-acquired pneumonia #COVID-positive #Influenza positive #History of COPD #Transaminitis #Cirrhosis #NSTEMI type II #Polysubstance abuse - Continue management per primary team Thank you for your opportunity to participate nephrology team in this patient's care. The patient's management plan was discussed with my attending physician MD Drake Sandoval MD, PGY2 Attending Provider Attestation/Addendum Patient seen and examined with resident physician Dr. Iyer. Note reviewed, agree with findings and recommendations. In covid isolation room. BUN/Cr elevated. Clinical exam seems to be euvolemic with wheezing. Noted 1+ edema. Lasix every other day ordered. gave 1l gentle fluids ambulate.
[2024-10-26] MEDS: ENOXAPARIN SOD INJ 30 MG/0.3 ML SYRINGE SC (09:05)
[2024-10-26] MEDS: carVEDILOL 12.5 MG TABLET 25 MG PO (09:06)
[2024-10-26] MEDS: PANTOPRAZOLE 40 MG TABLET PO (09:06)
[2024-10-26] MEDS: BusPIRone HCL 5 MG TABLET PO (09:06)
[2024-10-26] MEDS: ALBUTEROL/IPRATROPIUM (Duoneb) RT SOL 3 ML NEBU INH (10:53)
[2024-10-26] MEDS: hydrALAZINE HCL 25 MG TABLET 100 MG PO (13:45)
[2024-10-26] MEDS: NIFEdipine XL 30 MG TABCR PO (13:46)
--- NOTE | 2024-10-26 13:55 | PC.SS ---
Addendum entered by Nat Benedict 10/26/24 14:17: rounding note: Physician states patient was requesting an 02 tank and a FWW. SS will send order through [employer]. DME can be delivered to home. Addendum entered by Nat Benedict 10/26/24 14:16: SS coordinated transport through [employer]. 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 today. Patient's boyfriend was going to stop by to assist patient. Original Note: Follow up note: SS met with patient who is Covid positive. SS discussed that patient that we have d/c orders. Patient initially did not want to leave. However, through further discussion she was agreeable to discharging with her boyfriend.
--- NOTE | 2024-10-26 15:53 | ESDS_ITS ---
<Statement entered by Ayush Grossman MD - 10/26/24 16:48> Patient was examined with the team including attending physician. Note reviewed, I agree with the discharge plan as documented. - Ayush Grossman M.D. PGY2 Planned Discharge Date 10/26/24 DS: Providers Provider Date of admission: 10/19/24 11:26 Primary care physician: Cassidy Porras PA-C Admitting Provider: Kobe Dolan MD Attending Provider on Admission: Kobe Dolan MD Consults: 10/19/24 23:45 Referral Infection Control Routine Comment: Reason for Infection Control Referral: Patient In Isolation Health Equity Referral - Nutrition Routine Comment: Positive screening for nutrition needs. Health Equity Referral - Safety Routine Comment: Positive screening for safety needs. [facility] Equity Referral - Transportation Routine Comment: Positive screening for transportation needs. [facility] Equity Referral - Utilities Routine Comment: Positive screening for utility assistance needs. 10/21/24 10:29 Consult to Nephrology Routine Comment: Consulting Provider: Victoria uPlido Attending Provider on DC: Severino Smith MD Discharging Provider: Severino Smith MD DS: Diagnosis Problem List Completed Was Problem List Reviewed/Reconciled?: Yes Hospital Course Hospital Course Hospital course: The patient is a 69-year-old female with a past medical history of HFrEF EF 30 to 35%, CKD stage IV/V, hypertension, COPD, breast cancer status post bilateral mastectomy and history of meth use who presented to the ED on 10/19/2024 with progressive shortness of breath. She was previously seen in the ED for similar symptoms and said that she ran out of Lasix. Last echo done in 07/14 showed an ejection fraction of 30 to 35% with grade 2/3 diastolic dysfunction. In the ED, she was found to have COVID and influenza was admitted for acute hypoxic respiratory failure secondary to CHF exacerbation and acute bronchitis due to COVID/influenza infection. During his admission, renal ultrasound was done which showed small kidneys bilaterally with renal cortical thinning. Nephrology was consulted and the patient was adequately diuresed after which Lasix was changed to every other day. Today, the patient is clinically and hemodynamically stable, saturating 97% on room air and is medically cleared for discharge. She is recommended to continue on the Tamiflu for 2 more days and follow-use other medications as prescribed. She is also recommended to follow-up with her PCP within 1 week. #Acute hypoxic respiratory failure secondary CHF exacerbation/pneumonia #COVID-positive #Influenza positive #COPD #Polysubstance abuse Discharge instructions: - Continue Oseltamivir 1 tab daily for 2 more days. - Increased Carvedilol to 25 mg twice daily - Follow up with PCP in 1 week, recommend switching to Entresto once SREE resolved - Switched furosemide 40 mg from daily to every other day - Continue other home medications as prescribed If you don't have a PCP, you can make an appointment at the [facility]: [address] , [address]. 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 Eyes open, symmetrical, & clear CARDIO: No chest pain on palpation. Heart RRR, no obvious murmurs PULM: No noted coughing/dyspnea. Lungs CTA B/L GI: Abdomen soft, nondistended, no pain on palpation. BSx4 URO/TSA SCREENER:: No further abnormalities noted. SKIN/MSK/EXT: No wounds/rashes/edema/amputations, no pain on palpation. Pedal pulses present B/L Discharge Plan Plan Patient Disposition: HOME (Self Care) Patient condition on transfer: Stable Prescriptions/Referrals Prescriptions/Med Rec: New carvedilol 25 mg tablet 25 mg PO BID 30 Days Qty: 60 0RF Rx Instructions: must administer with a meal/food Trelegy Ellipta 200-62.5-25 mcg blister with device 2 inh inhalation BID Qty: 60 0RF furosemide 20 mg tablet 20 mg PO Q OTHER DAY Qty: 60 0RF lisinopril 5 mg tablet 5 mg PO QDAY Qty: 30 0RF Continued bupropion HCl 150 mg Tablet Sustained-Release 12 Hr 150 mg PO BID tolterodine 4 mg Capsule,Extended Release 24hr 4 mg PO QDAY amlodipine 10 mg tablet 10 mg PO QDAY Qty: 30 1RF prednisone 50 mg tablet 50 mg PO QDAY Qty: 4 0RF Discontinued albuterol sulfate 90 mcg/actuation HFA aerosol inhaler 1 inh inhalation QID PRN (Reason: shortness of breath or wheezing) Qty: 8.5 0RF furosemide [Lasix] 20 mg tablet 20 mg PO BID Qty: 60 0RF albuterol sulfate 90 mcg/actuation HFA aerosol inhaler 2 inh inhalation Q4H PRN (Reason: shortness of breath or wheezing) Qty: 8.5 0RF Referrals: Cassidy Porras PA-C [Primary Care Provider] - Patient/Caregiver Discharge Instructions Discharge Activity: resume usual activities Other Discharge Activity Instructions:: - Continue Oseltamivir 1 tab daily for 2 more days. - Increased Carvedilol to 25 mg twice daily - Follow up with PCP in 1 week, recommend switching to Entresto once SREE res olved - Switched furosemide 40 mg from daily to every other day - Continue other home medications as prescribed If you don't have a PCP, you can make an appointment at the [facility]: [address] , [address]. [place] [address] Education Materials: What Is Heart Failure, Low-Salt Choices Print Language: Syriac Stand Alone Forms: Fern Award Info., Patient Portal Info Letter Discharge Order Discharge Orders: Discharge (Routine); Ordered 10/25/24 Ordered By: Severino Smith Quality Discharge Quality Measures VTE prophylaxis Attestestation Attestation I reviewed labs, imaging, EKG, home medications and prior available records. Face to face evaluation was performed by me. I have personally examined the patient and discussed assessment and plan with the IM team. I reviewed the resident note and agree with the plan with exceptions as below. Acute hypoxic respiratory failure COVID-19 Left lower lobe pneumonia Acute exacerbation of HFrEF EF 35% COVID-19 Influenza A Non-STEMI History of methamphetamine abuse COPD Finished a course of ceftriaxone/azithromycin Gentle diuresis with p.o. Lasix 20 mg every other day. Continue carvedilol. Started small dose lisinopril Monitor kidney function. Avoid nephrotoxins. Renally dosed medications Resume home BP medications Trend troponin: Peaked Continue home COPD inhalers. Avoid tobacco exposure She received IV Solu-Medrol for her COPD/COVID Counseled the patient regarding the importance of stopping illicit drugs BP uncontrolled: Counseled the patient regarding the importance of medication compliance Time spent is 40 minutes. More than 50% of the time was spent on patient education and coordination of care.
--- NOTE | 2024-10-26 16:12 | PC.SS ---
Patient needs FWW for home. The diagnosis creates mobility limitation that significantly impairs ability to participate in the patients activities of daily living either in their entirety, or in a reasonable time frame. Also the patient is able to safely use the walker and the patient?s mobility is sufficiently resolved with the use of the walker and cane has been ruled out.
== END 2024-10-26 15:10 | disposition home or self-care (01) | DRG 177 ==
LOC: SERX 10:29 → SERHOLD 12:30 → S2NX 20:49
PROVIDERS: Internal Medicine; Student in an Organized Health Care Education/Training Program; Admitting Provider Student in an Organized Health Care Education/Training Program; Emergency Provider Emergency Medicine; PCP Physician Assistant; Visit Provider Student in an Organized Health Care Education/Training Program
DX: U07.1 COVID-19 (principal); I21.A1 Myocardial infarction type 2; I50.23 Acute on chronic systolic (congestive) heart failure; J10.08 Influenza due to other identified influenza virus with other specified pneumonia; J12.82 Pneumonia due to coronavirus disease 2019; J96.01 Acute respiratory failure with hypoxia; I16.1 Hypertensive emergency; J44.0 Chronic obstructive pulmonary disease with (acute) lower respiratory infection; N18.4 Chronic kidney disease, stage 4 (severe); J44.1 Chronic obstructive pulmonary disease with (acute) exacerbation; N17.9 Acute kidney failure, unspecified; I13.0 Hypertensive heart and chronic kidney disease with heart failure and stage 1 through stage 4 chronic kidney disease, or unspecified chronic kidney disease; Z59.00 Homelessness unspecified; F15.90 Other stimulant use, unspecified, uncomplicated; F17.210 Nicotine dependence, cigarettes, uncomplicated; I16.0 Hypertensive urgency; J20.8 Acute bronchitis due to other specified organisms; K74.60 Unspecified cirrhosis of liver; N27.1 Small kidney, bilateral; Z98.82 Breast implant status; Z90.10 Acquired absence of unspecified breast and nipple; Z85.3 Personal history of malignant neoplasm of breast; Z79.899 Other long term (current) drug therapy; Z91.048 Other nonmedicinal substance allergy status; Z90.13 Acquired absence of bilateral breasts and nipples; Z28.310 Unvaccinated for COVID-19; Z53.29 Procedure and treatment not carried out because of patient's decision for other reasons; Z91.199 Patient's noncompliance with other medical treatment and regimen due to unspecified reason
CPT/HCPCS: 36415; 70450; 71045; 71250; 74176; 76770; 80053; 80069; 80307; 81001; 82043; 82436; 82570; 83605; 83735; 83880; 84132; 84133; 84156; 84300; 84484; 84540; 85025; 85610; 87400; 87811; 93005; 94640; 96365; 96366; 96375; 99285; A9270; J0360; J0696; J1650; J1815; J1940; J2270; J2919; J3475; J7030; J7120

== ENCOUNTER 2024-11-04 18:31 | Inpatient (IN) | payer MEDICARE, MEDICAID, SELFPAY ==
[2024-11-04] VITALS (22 sets, daily range): BP systolic 142–184; BP diastolic 94–125; PULSE 65–75; RESP 10–22; TEMP 36.5; O2SAT 95–100; BMI 23.3
--- NOTE | 2024-11-04 19:18 | PD.EDSOB ---
ED SOB =RME/HPI General Chief Complaint: Shortness of Breath/Dyspnea Stated Complaint: SHORTNESS OF BREATH Time Seen by Provider: 11/04/24 19:04 Arrival date/time: 11/04/24 18:31 RME / HPI RME / HPI Narrative: This section includes all my notes and documentations, including HPI, PE, and ED course. Delonte Beard MD HPI: 69yo female with a history of CHF, CKD, HTN, COPD, breast cancer status post bilateral mastectomy, methamphetamine use, homelessness presents to the ED for a chief complaint of shortness of breath. Per EMS, patient was seen at urgent care today for the same complaint and was sent over for evaluation. EMS administered 1 albuterol treatment en route, which showed some improvement. Patient reports an associated cough. Denies any fever, chills or any other associated symptoms. Patient does not have an inhaler or oxygen. No other complaints reported. ROS: All negative except as documented in HPI. Physical Exam: General: Alert and oriented. In mild to respiratory distress. Eyes: Conjunctivae and lids clear. ENT: No nasal congestion. Neck: Supple. Heart: RRR. Lungs: Noted respiratory distress. Moderately decreased air movement. Diffuse wheezing and rales. Abdomen: Soft and nontender. Legs: No clubbing, cyanosis, edema. Skin: Warm and dry. Neuro: Alert and oriented X 3. I reviewed all diagnostic test results. My interpretation of the EKG is sinus rhythm with no acute ST?T changes. My interpretation of the chest x-ray is increased vascular congestion. Blood tests and urine tests remarkable for D-dimer 1100, CR 2.6, troponin 0.242, and BNP > 3280. At this point, diagnoses include acute respiratory failure with hypoxia, CHF exacerbation, COPD exacerbation, and elevated troponin. Treatment here included Duoneb, Clonidine, Lasix, Solumedrol, Morphine, and Solumedrol. No significant improvement noted. I discussed the case with our hospitalist. About the presentation and exam and diagnostics and treatments here. And need of further care in the hospital. Will accept the patient. Delonte Beard MD Related Data Home Medications ?Medication ?Instructions ?Recorded ?Confirmed bupropion HCl 150 mg tablet,12 hr 150 mg PO BID 10/19/23 10/19/23 sustained-release tolterodine 4 mg capsule,extended 4 mg PO QDAY 10/19/23 10/19/23 release 24 hr Previous Rx's ?Medication ?Instructions ?Recorded amlodipine 10 mg tablet 10 mg PO QDAY #30 tabs 07/14/24 prednisone 50 mg tablet 50 mg PO QDAY #4 tabs 10/13/24 carvedilol 25 mg tablet 25 mg PO BID 1 month #60 tabs 10/24/24 fluticasone fur. 200 mcg-umeclid 2 inh inhalation BID #60 ea 10/26/24 62.5 mcg-vilant 25 mcg inhalat.powder (Trelegy Ellipta) furosemide 20 mg tablet 20 mg PO Q OTHER DAY #60 tabs 10/26/24 lisinopril 5 mg tablet 5 mg PO QDAY CHF/hypertension #30 10/27/24 tabs Allergies Allergy/AdvReac Type Severity Reaction Status Date / Time iodine Allergy Severe Rash Verified 07/23/24 13:17 Review of Systems Review of Systems Systems Reviewed: All systems reviewed, normal except as documented Past Medical History Past Medical History NEUROLOGIC: Negative Neurological Disorders CARDIAC: Positive Cardiac Disorders, Congestive Heart Failure and Hypertension RESPIRATORY: Positive Chronic Obstructive Pulmonary Disease (COPD) and Bronchitis GASTROINTESTINAL: Positive Gastrointestinal Disorders, Gastrointestinal Bleed and Ulcer GENITOURINARY: Positive Genitourinary Disorders; Negative Renal Disease REPRODUCTIVE: Positive Breast Cancer and Previous Pregnancies MUSCULOSKELETAL: Positive Musculoskeletal Disorders and Arthritis ENDOCRINE: Negative Endocrine Disorders, Diabetes Mellitus Type 1 or Diabetes Mellitus Type 2 HEMATOLOGIC: Positive Blood Disorders and Anemia PSYCHO/SOCIAL: Positive Recreational Drug Use, Depression, Anxiety and Post Traumatic Stress Disorder OTHER HISTORY: Positive Cosmetic Surgery (breast cancer surgery cosmetic. ), Falls, Blood Transfusions, Chicken Pox and Breast Cancer; Negative Autoimmune Disease, Blood Transfusion Reaction or Anesthesia Reactions Family History FAMILY HISTORY: Positive Family Gastrointestinal Problems and Family Cancer; Negative Family Respiratory Disorders, Family Cardiac Disorders, Family Surgery or Family Anesthesia Reaction Surgical History SURGICAL: Positive Mastectomy and Section Social History SMOKING STATUS: Former smoker SECOND HAND EXPOSURE: No ED Exam Narrative Physical exam: As noted in HPI. Course Course Course Narrative: CXR is ordered for determining the etiology of shortness of breath. Quality Measures none Orders Category Date Time Status Admit to Inpatient Status Routine Admission 11/04/24 22:45 Active Patient Condition Routine Admission 11/04/24 22:45 Ordered Bedside COVID-19 Antigen Test NOW Care 11/04/24 20:03 Active Bedside Influenza A&B Antigen Test NOW Care 11/04/24 20:03 Completed Decision to Admit X1 Care 11/04/24 21:57 Completed EKG (ED ONLY) *Do not use* NOW Care 11/04/24 20:04 Completed Fluid restriction QDAY Care 11/04/24 23:07 Active Notify provider NEEDED Care 11/04/24 22:45 Active Obtain weight DAILY Care 11/04/24 23:07 Active Obtain weight NOW Care 11/04/24 22:45 Active Saline [Insert IV] NOW Care 11/04/24 20:03 Active Strict Intake and Output Routine Care 11/04/24 23:07 Ordered Diet Cardiac Diet 11/05/24 Breakfast Active EKG (ED Only) Stat Exams 11/04/24 20:04 Draft XR chest 1V portable Stat Exams 11/04/24 20:04 Completed ABG [Arterial Blood Gas] Stat Lab 11/04/24 20:53 Completed Ammonia Stat Lab 11/04/24 23:14 Received BNP [B-Type Natriuretic Peptide] Stat Lab 11/04/24 20:45 Completed CBC AM DRAW Lab 11/05/24 05:00 Ordered CBC AM DRAW Lab 11/06/24 05:00 Ordered CBC AM DRAW Lab 11/07/24 05:00 Ordered CBC AM DRAW Lab 11/08/24 05:00 Ordered CBC Stat Lab 11/04/24 20:45 Completed CMP [Comprehensive Metabolic Panel] AM DRAW Lab 11/05/24 05:00 Ordered CMP [Comprehensive Metabolic Panel] AM DRAW Lab 11/06/24 05:00 Ordered CMP [Comprehensive Metabolic Panel] AM DRAW Lab 11/07/24 05:00 Ordered CMP [Comprehensive Metabolic Panel] AM DRAW Lab 11/08/24 05:00 Ordered CMP [Comprehensive Metabolic Panel] Stat Lab 11/04/24 20:45 Completed D-Dimer Stat Lab 11/04/24 20:45 Completed Drug Screen,Urine Stat Lab 11/04/24 21:53 Ordered Magnesium AM DRAW Lab 11/05/24 05:00 Ordered Magnesium AM DRAW Lab 11/06/24 05:00 Ordered Magnesium AM DRAW Lab 11/07/24 05:00 Ordered Magnesium AM DRAW Lab 11/08/24 05:00 Ordered Magnesium Stat Lab 11/04/24 20:45 Completed PTT [Partial Thromboplastin Time] AM DRAW Lab 11/05/24 05:00 Ordered Phosphorous AM DRAW Lab 11/05/24 05:00 Ordered Phosphorous AM DRAW Lab 11/06/24 05:00 Ordered Phosphorous AM DRAW Lab 11/07/24 05:00 Ordered Phosphorous AM DRAW Lab 11/08/24 05:00 Ordered Prothrombin Time with INR AM DRAW Lab 11/05/24 05:00 Ordered RSV [Respiratory Syncytial Virus Ag] Stat Lab 11/04/24 20:04 Ordered Troponin I Q6H Lab 11/05/24 02:00 Ordered Troponin I Q6H Lab 11/05/24 08:00 Ordered Troponin I Q6H Lab 11/05/24 14:00 Ordered Troponin I Stat Lab 11/04/24 20:45 Completed UA, C/S IF [Urinalysis, C/S if Indicated] Stat Lab 11/04/24 21:53 Ordered Acetaminophen Tab [Tylenol Tab] Med 11/04/24 22:45 Active 650 mg PO Q6H PRN Acetaminophen Tab [Tylenol Tab] Med 11/04/24 22:45 Active 650 mg PO Q6H PRN Albuterol/Ipratr Rt Dee [Duoneb Rt Dee] Med 11/04/24 23:00 Active 3 ml INH Q4HRRT Albuterol/Ipratr Rt Dee [Duoneb Rt Dee] Med 11/04/24 20:02 Discontinued 3 ml INH X1 ONE Azithromycin Inj [Zithromax Inj] 250 mg Med 11/04/24 22:49 Pending Sodium Chloride 0.9% 250 ml [Ns] 250 ml IV QDAY Azithromycin Inj [Zithromax Inj] 250 mg Med 11/04/24 23:30 Active Sodium Chloride 0.9% 250 ml [Ns] 250 ml IV X1 Furosemide Inj [Lasix Inj] Med 11/05/24 06:00 Active 40 mg IVP BIDD Furosemide Inj [Lasix Inj] Med 11/04/24 21:39 Discontinued 80 mg IVP X1 ONE HYDROcodone/APAP 10/325 [Matthews 10/325] Med 11/04/24 22:45 Active 1 tab PO Q4HR PRN Heparin Inj Med 11/05/24 06:00 Active 5,000 unit SC Q8HR MethylPREDNISolone.* [SoluMEDROL Inj] Med 11/04/24 20:02 Discontinued 125 mg IVP X1 ONE Morphine Inj Med 11/04/24 21:39 Discontinued 4 mg IVP X1 ONE Nitroglycerin Oint 2% [Nitro-paste Oint 2%] Med 11/04/24 21:39 Discontinued 1 inch TOP X1 ONE Ondansetron Inj [Zofran Inj] Med 11/04/24 22:45 Active 4 mg IV Q6H PRN Pantoprazole Inj [Protonix Inj] Med 11/05/24 09:00 Active 40 mg IVP QDAY amLODIPine BESYLATE [Norvasc] Med 11/04/24 23:10 Active 10 mg PO QDAY cloNIDine HCL [Catapres] Med 11/04/24 20:02 Discontinued 0.2 mg PO X1 ONE oxyCODONE/APAP 5/325 [Percocet 5/325] Med 11/04/24 22:45 Active 1 tab PO Q6H PRN Code Status Routine Oth 11/04/24 22:45 Ordered Referral Drainage Design Coordinator NOW 11/04/24 23:35 Active Vital Signs Vital signs: Vital Signs Temperature 97.7 F 11/04/24 18:55 Pulse Rate 71 11/04/24 18:55 Respiratory Rate 20 11/04/24 18:55 Blood Pressure 172/100 H 11/04/24 18:55 Pulse Oximetry (%) 99 11/04/24 18:55 Oxygen Delivery Method Nasal Cannula 11/04/24 18:55 Oxygen Flow Rate 6 11/04/24 18:55 Shortness of Breath / Dyspnea MDM Narrative MDM Narrative:: Scribe Attestation: 11/04/24 Bonny Buck am scribing for and in the presence of Dr. Beard. Patient data External records reviewed:: [facility] previous records (Per chart review, patient was admitted here on 10/19/24 for bronchitis.) Clinical information provided by:: patient Social determinants that could affect healthcare access:: substance use (history of methamphetamine use) Patient has the following chronic illnesses:: HFrEF EF 30 to 35%, CKD stage IV/V, hypertension, COPD, breast cancer status post bilateral mastectomy How is presenting disease/condition affected by chronic disease/condition?: exacerbated by Evaluation data The following diagnostics were reviewed and interpreted by me:: lab results, radiology exam(s) and EKG tracing(s) (My interpretation of the EKG is: Sinus rhythm (70 bpm) with nonspecific ST-T changes. Delonte Beard MD) Lab and/or radiology exams considered but not ordered:: none Interpretation Summary: Respiratory failure, COPD exacerbation, CHF exacerbation, and elevated troponin Medications / Prescriptions Medications or Prescriptions considered but not ordered:: none Medication administrations:: Medication Administration History Acetaminophen (Acetaminophen 325 Mg Tablet) 650 mg PO Q6H PRN PRN Reason: PAIN SCALE 1-3 (mild Stop: 12/04/24 22:44 Acetaminophen (Acetaminophen 325 Mg Tablet) 650 mg PO Q6H PRN PRN Reason: Fever >100.4 Stop: 12/04/24 22:44 Hydrocodone Bitart/Acetaminophen (Hydrocodone/Apap 10/325 Tab) 1 tab PO Q4HR PRN PRN Reason: PAIN SCALE 7-10 (Severe Stop: 11/09/24 22:44 Albuterol/Ipratropium (Albuterol/Ipratropium (Duoneb) Rt Dee 3 Ml Nebu) 3 ml INH Q4HRRT [facility] Stop: 12/04/24 22:59 Amlodipine Besylate (Amlodipine Besylate 5 Mg Tablet) 10 mg PO QDAY [facility] Stop: 12/04/24 23:09 Furosemide (Furosemide Inj 10 Mg/Ml 4ml Vial) 40 mg IVP BIDD [facility] Stop: 12/05/24 05:59 Heparin Sodium (Porcine) (Heparin Sod Inj 5000 Unit/Ml Vial) 5,000 unit SC Q8HR [facility] Stop: 11/19/24 05:59 Azithromycin 250 mg/ Sodium (Chloride) 250 mls @ 250 mls/hr IV QDAY [facility] Stop: 11/11/24 22:48 Azithromycin 250 mg/ Sodium (Chloride) 250 mls @ 250 mls/hr IV X1 ONE Stop: 11/05/24 00:29 Ondansetron HCl (Ondansetron Inj 2 Mg/Ml Inj 2 Ml) 4 mg IV Q6H PRN; Protocol PRN Reason: NAUSEA OR VOMITING Stop: 12/04/24 22:44 Oxycodone/Acetaminophen (Oxycodone/Apap 5/325 Tablet) 1 tab PO Q6H PRN PRN Reason: PAIN SCALE 4-6 (Moderate Stop: 11/09/24 22:44 Pantoprazole Sodium (Pantoprazole Inj 40 Mg Vial) 40 mg IVP QDAY [facility] Stop: 12/05/24 08:59 Discontinued Medications Albuterol/Ipratropium (Albuterol/Ipratropium (Duoneb) Rt Dee 3 Ml Nebu) 3 ml INH X1 ONE Stop: 11/04/24 20:03 Last Admin: 11/04/24 20:45 Dose: 3 ml Documented By: MM Clonidine (Clonidine Hcl 0.1 Mg Tablet) 0.2 mg PO X1 ONE Stop: 11/04/24 20:03 Last Admin: 11/04/24 20:20 Dose: 0.2 mg Documented By: TC Furosemide (Furosemide Inj 10 Mg/Ml 4ml Vial) 80 mg IVP X1 ONE Stop: 11/04/24 21:40 Last Admin: 11/04/24 22:46 Dose: 80 mg Documented By: EF Methylprednisolone Sodium Succinate (Methylprednisolone Sod Succ 62.5 Mg/Ml 2ml Vial) 125 mg IVP X1 ONE Stop: 11/04/24 20:03 Last Admin: 11/04/24 20:20 Dose: 125 mg Documented By: TC Morphine Sulfate (Morphine Sulf Inj 10 Mg/Ml Vial) 4 mg IVP X1 ONE Stop: 11/04/24 21:40 Last Admin: 11/04/24 22:47 Dose: 4 mg Documented By: EF Nitroglycerin (Nitroglycerin Oint 2% 1 Inch Packet) 1 inch TOP X1 ONE Stop: 11/04/24 21:40 Last Admin: 11/04/24 22:56 Dose: 1 inch Documented By: EF Duoneb, Clonidine, Lasix, Solumedrol, Morphine, Solumedrol Consultations Consultation(s) initiated? (list below): No Diagnosis Shortness of Breath Differential Diagnosis: acute exacerbation of chronic obstructive airways disease, congestive heart failure, community acquired pneumonia, asthma with exacerbation and pulmonary embolism Most likely diagnosis given after review of the tests above:: Respiratory failure, COPD exacerbation, CHF exacerbation, and elevated troponin Admission Indicated Admission indicated?: indicated Explain why admission is indicated or not indicated:: Respiratory failure, COPD exacerbation, CHF exacerbation, and elevated troponin Admission Request Was there a request for admission?: Yes Admission Attestation Admission request attestation: Discussed case with Hospitalist service regarding admission. Discussed patients ED course, exam findings, labs, and radiology results. The Hospitalist [agrees] to accept the patient for admission. Disposition Plan Disposition Plan: Admit Discharge Plan Plan Patient Disposition: Admit Acute Care w/in Hospital Prescriptions/Referrals Prescriptions/Med Rec: No Action bupropion HCl 150 mg Tablet Sustained-Release 12 Hr 150 mg PO BID tolterodine 4 mg Capsule,Extended Release 24hr 4 mg PO QDAY amlodipine 10 mg tablet 10 mg PO QDAY Qty: 30 1RF prednisone 50 mg tablet 50 mg PO QDAY Qty: 4 0RF carvedilol 25 mg tablet 25 mg PO BID 30 Days Qty: 60 0RF Rx Instructions: must administer with a meal/food Trelegy Ellipta 200-62.5-25 mcg blister with device 2 inh inhalation BID Qty: 60 0RF furosemide 20 mg tablet 20 mg PO Q OTHER DAY Qty: 60 0RF lisinopril 5 mg tablet 5 mg PO QDAY Qty: 30 0RF Problem List Clinical Impression: Acute respiratory failure with hypoxia, Elevated troponin, COPD exacerbation, CHF exacerbation, Hypertensive urgency Patient/Caregiver Discharge Instructions Print Language: Korean Stand Alone Forms: Fern Award Info., Patient Portal Info Letter
--- NOTE | 2024-11-04 20:04 | EKG_ITS ---
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
--- NOTE | 2024-11-04 20:04 | XR_ITS ---
Examination: AP chest single view Technique one AP portable semiupright chest single view Exam date and time: November 04, 20242031 hrs. Comparison October 19, 2024 Indications: Shortness of breath today. Findings: Mild to moderate CHF Moderate enlargement cardiac contour Prominent vascular congestion with perihilar edema Severe osteopenia Impression: Mild to moderate CHF
[2024-11-04] MEDS: cloNIDine HCL 0.1 MG TABLET 0.2 MG PO (20:20)
[2024-11-04] MEDS: MethylPREDNISolone SOD SUCC 62.5 MG/ML 2ML VIAL 125 MG IVP (20:20)
[2024-11-04] MEDS: ALBUTEROL/IPRATROPIUM (Duoneb) RT SOL 3 ML NEBU INH (20:45)
[2024-11-04 20:59] LABS: Base Excess -1 (-3-3); HCO3 24 mEq/L (20-26); Inspired Oxygen, FIO2 21 %; O2 Saturation 100 % (91-98); PCO2 45 mmHg (32.0-48.0); PO2 225 mmHg (83-108); pH, Arterial 7.35 (7.35-7.45)
[2024-11-04 21:01] LABS: Allen Test Performed/OK; Puncture Site Right Radial
[2024-11-04 21:07] LABS: Basophils # (Auto) 0.1 Thou/mm3 (0.0-0.2); Basophils % (Auto) 1 % (0-2.5); Eosinophils # (Auto) 0.1 Thou/mm3 (0.0-0.5); Eosinophils % (Auto) 1 % (0-10); Hematocrit 34.3 % (36.0-46.0); Hemoglobin 11.3 g/dL (12.0-16.0); Immature Granulocytes % (Auto) 0 % (0-0); Immature Granulocytes Auto 0.02 Thou/mm3 (0.00-0.00); Lymphocytes # (Auto) 0.8 Thou/mm3 (1.0-4.8); Lymphocytes % (Auto) 15 % (10-50); Mean Corpuscular HGB Conc 32.9 g/dl (31.0-37.0); Mean Corpuscular Volume 94 fL (80-100); Monocytes # (Auto) 0.4 Thou/mm3 (0.0-0.8); Monocytes % (Auto) 7 % (0-12); Neutrophils # (Auto) 4.3 Thou/mm3 (1.8-7.7); Neutrophils % (Auto) 76 % (37-80); Nucleated Red Blood Cell % 0 /100 WBC (0); Platelet Count 188 Thou/mm3 (140-440); RDW Standard Deviation 50.8 fL (36.4-46.3); Red Blood Count 3.65 Miln/mm3 (4.00-5.20); White Blood Count 5.7 Thou/mm3 (3.6-11.0)
[2024-11-04 21:25] LABS: Alanine Aminotransferase 99 U/L (10-49); Albumin, Serum 3.7 gm/dL (3.4-4.8); Albumin/Globulin Ratio 1.5 (1.2-2.2); Alkaline Phosphatase 155 U/L (46-116); Anion Gap 10 (7-16); Aspartate Amino Transferase 78 U/L (0-34); B-Type Natriuretic Peptide > 3280 pg/mL (0-100); BUN/Creatinine Ratio 26 Ratio (12-20); Bilirubin,Total 0.3 mg/dL (0.3-1.2); Blood Urea Nitrogen 67 mg/dL (9-23); Calcium 8.6 mg/dL (8.3-10.6); Calcium (Corrected) 8.8 mg/dL (8.5-10.1); Carbon Dioxide 25.3 mMol/L (20.0-31.0); Chloride 108 mMol/L (98-107); Creatinine (Component) 2.6 mg/dL (0.6-1.3); Estimated Creatinine Clearance 17.1 mL/min (>60); Globulin 2.5 gm/dL (2.3-3.5); Glucose 99 mg/dL (74-106); Magnesium 1.8 mg/dL (1.6-2.6); Osmolality,Calculated 304 (275-295); Potassium 3.8 mMol/L (3.4-5.1); Sodium 143 mMol/L (136-145); Total Protein 6.2 gm/dL (5.7-8.2); eGFR 19 See Note
[2024-11-04 21:37] LABS: Troponin I 0.242 ng/mL (0.0-0.045)
[2024-11-04 21:38] LABS: D-Dimer 1100 ng/mL (<600)
[2024-11-04] MEDS: FUROSEMIDE INJ 10 MG/ML 4ML VIAL 80 MG IVP (22:46)
[2024-11-04] MEDS: MORPHINE SULF INJ 10 MG/ML VIAL 4 MG IVP (22:47)
[2024-11-04] MEDS: NITROGLYCERIN OINT 2% 1 INCH PACKET TOP (22:56)
--- NOTE | 2024-11-04 23:11 | ESHP_ITS ---
Documentation for date of: 11/04/24 [facility] History of Present Illness History of present illness: This is a 69-year-old female with PMHx of HFrEF 30-35%, CKD stage IV/V, HTN, COPD, breast cancer status post unilateral mastectomy, polysubstance use disorder, presenting with worsening shortness of breath. She is a transient patient, struggle with homelessness, has been having worsening exertional shortness of breath over the last week, limiting her daily activity of living. Also has worsening lower extremity edema and increased fatigability. She was prescribed LASIX and home oxygen. However, she inconsistently takes her LASIX and unable to stay on home oxygen secondary to homelessness. Denies headaches, fall, head trauma, loss of consciousness, fevers, chills, chest pain, cough both productive and or dry, abdominal pain, N/V/D/C, dysuria, urinary urgency or frequency, abnormal bleeding. ED COURSE: Afebrile, BP 172/100, HR 71, RR 22, satting 97% on on 6 L NS. Hgb 11.3, otherwise CBC WNL. CR 2.4, BUN 94, GFR 21, AST 78, ALT 99, ALP 155. Lactic acid normal. Troponin 0.242, BNP greater than 3280. EKG sinus rhythm without acute ST changes. CXR showed mild to moderate CHF. PMHx: HFrEF 30-35%, CKD stage IV/V, HTN, COPD, breast cancer, polysubstance use disorder PSHx: left unilateral mastectomy with breat implant. MEDS: (Pending med rec) CARVEDILOL 25 mg BID, LIDOPIN 10 mg daily, LISINOPRIL 5 mg, FUROSEMIDE 20 mg, TRELEGY, BUPROPION 150 BID, TOLTERODINE 4 mg daily. ALLERGIES: IODINE (rash) FHx: Unknown. SH: admits to tobacco, alcohol, other drugs use. Homeless. Exam Vital Signs Temp Pulse Resp BP Pulse Ox O2 Del Method O2 Flow Rate 97.7 F 68 18 162/95 H 95 Nasal Cannula 2 11/04/24 18:55 11/04/24 22:56 11/04/24 21:31 11/04/24 22:56 11/04/24 21:31 11/04/24 20:24 11/04/24 20:46 Narrative Exam GENERAL * Disheveled, poor hygiene, missing upper/lower teeth, on 2 L NC HEENT * NCAT.?CYNTHIA. Oral mucosa is moist. Patent Nares NECK * Supple, nontender, no thyromegaly, no meningismus, no JVD, no step offs CHEST * RRR, no m/g/r * CTAB, no w/r/r. Symmetrical chest rise. No intercostal subcostal retraction * Atraumatic, nontender, no crepitus, symmetrical expansion. ABDOMEN * Soft, flat, nontender. No guarding/rebound tenderness/masses. * Bowel sounds presents EXTREMITIES * Nontender, no cyanosis, no edema * 2+ bilateral lower extremity pitting edema SKIN * Warm and dry, no jaundice/rashes. NEUROMUSCULAR * No lumbar or midline, no CVA, no paraspinal muscle spasm or tenderness. * Moves all 4 extremities well, with full ROM and good CSM. * LIU x4, CN II-XII grossly intact. * No focal neurologic deficits. PSYCHIATRY * Normal mood and affect, cooperative, no SI or HI or hallucinations. Results: Labs 11/04/24 20:45 11/04/24 20:45 Labs: Short CBC 11/04/24 Range/Units 20:45 WBC 5.7 (3.6-11.0) Thou/mm3 Hgb 11.3 L (12.0-16.0) g/dL Hct 34.3 L (36.0-46.0) % Plt Count 188 D (140-440) Thou/mm3 BMP 11/04/24 20:45 Sodium 143 Potassium 3.8 Chloride 108 H Carbon Dioxide 25.3 BUN 67 H Creatinine 2.6 H Glucose 99 Calcium 8.6 Cardiac Enzymes 11/04/24 Range/Units 20:45 Troponin I 0.242 H* (0.0-0.045) ng/mL Liver Function 11/04/24 Range/Units 20:45 Total Bilirubin 0.3 (0.3-1.2) mg/dL AST 78 H (0-34) U/L ALT 99 H (10-49) U/L Alkaline Phosphatase 155 H (46-116) U/L Albumin 3.7 (3.4-4.8) gm/dL ABG Interpretation ABG results: 11/04/24 20:53 ABG pH 7.35 ABG pCO2 45 ABG pO2 225 H ABG HCO3 24 ABG O2 Saturation 100 H ABG Base Excess -1 Quality Measures Quality Measures none Advance care planning discussed with:: patient Medications Home Medications and Allergies Home Medications ?Medication ?Instructions ?Recorded ?Confirmed ?Type bupropion HCl 150 mg tablet,12 hr 150 mg PO BID 10/19/23 History sustained-release tolterodine 4 mg capsule,extended 4 mg PO QDAY 4 10/19/23 History release 24 hr Allergies Allergy/AdvReac Type Severity Reaction Status Date / Time iodine Allergy Severe Rash Verified 07/23/24 13:17 Visit Medications Acetaminophen (Acetaminophen 325 Mg Tablet) 650 mg PO Q6H PRN PRN Reason: PAIN SCALE 1-3 (mild Stop: 12/04/24 22:44 Acetaminophen (Acetaminophen 325 Mg Tablet) 650 mg PO Q6H PRN PRN Reason: Fever >100.4 Stop: 12/04/24 22:44 Hydrocodone Bitart/Acetaminophen (Hydrocodone/Apap 10/325 Tab) 1 tab PO Q4HR PRN PRN Reason: PAIN SCALE 7-10 (Severe Stop: 11/09/24 22:44 Albuterol/Ipratropium (Albuterol/Ipratropium (Duoneb) Rt Dee 3 Ml Nebu) 3 ml INH Q4HRRT [facility] Stop: 12/04/24 22:59 Amlodipine Besylate (Amlodipine Besylate 5 Mg Tablet) 10 mg PO QDAY [facility] Stop: 12/04/24 23:09 Furosemide (Furosemide Inj 10 Mg/Ml 4ml Vial) 40 mg IVP BIDD [facility] Stop: 12/05/24 05:59 Heparin Sodium (Porcine) (Heparin Sod Inj 5000 Unit/Ml Vial) 5,000 unit SC Q8HR [facility] Stop: 11/19/24 05:59 Azithromycin 250 mg/ Sodium (Chloride) 250 mls @ 250 mls/hr IV QDAY [facility] Stop: 11/11/24 22:48 Ondansetron HCl (Ondansetron Inj 2 Mg/Ml Inj 2 Ml) 4 mg IV Q6H PRN; Protocol PRN Reason: NAUSEA OR VOMITING Stop: 12/04/24 22:44 Oxycodone/Acetaminophen (Oxycodone/Apap 5/325 Tablet) 1 tab PO Q6H PRN PRN Reason: PAIN SCALE 4-6 (Moderate Stop: 11/09/24 22:44 Pantoprazole Sodium (Pantoprazole Inj 40 Mg Vial) 40 mg IVP QDAY [facility] Stop: 12/05/24 08:59 Discontinued Medications Albuterol/Ipratropium (Albuterol/Ipratropium (Duoneb) Rt Dee 3 Ml Nebu) 3 ml INH X1 ONE Stop: 11/04/24 20:03 Last Admin: 11/04/24 20:45 Dose: 3 ml Clonidine (Clonidine Hcl 0.1 Mg Tablet) 0.2 mg PO X1 ONE Stop: 11/04/24 20:03 Last Admin: 11/04/24 20:20 Dose: 0.2 mg Furosemide (Furosemide Inj 10 Mg/Ml 4ml Vial) 80 mg IVP X1 ONE Stop: 11/04/24 21:40 Last Admin: 11/04/24 22:46 Dose: 80 mg Methylprednisolone Sodium Succinate (Methylprednisolone Sod Succ 62.5 Mg/Ml 2ml Vial) 125 mg IVP X1 ONE Stop: 11/04/24 20:03 Last Admin: 11/04/24 20:20 Dose: 125 mg Morphine Sulfate (Morphine Sulf Inj 10 Mg/Ml Vial) 4 mg IVP X1 ONE Stop: 11/04/24 21:40 Last Admin: 11/04/24 22:47 Dose: 4 mg Nitroglycerin (Nitroglycerin Oint 2% 1 Inch Packet) 1 inch TOP X1 ONE Stop: 11/04/24 21:40 Last Admin: 11/04/24 22:56 Dose: 1 inch Assessment & Plan Plan In summary: 69-year-old female PMHx of HFrEF 30-35% 06/2024, COPD, CKD 3B, HTN, polysubstance use disorder, s/p right mastectomy, presented with SOB, admitted for AHRF in setting of CHF > COPD exacerbation. Acute hypoxemic respiratory failure CHF exacerbation COPD exacerbation, less likely Presenting with 1 week of difficulty breathing, and lower extremity swelling. Lack of medication adhesion i.e. lasix secondary to homelessness. CXR showed mild to moderate CHF. BNP >32,000. Lung exam showed bibasilar Rales but no wheezing. Had 2+ bilateral lower extremity pitting edema. Last echo in 06/2024 with EF 30-35%. ABG pH 7.35, CO2 45, O2 225, bicarb 24. Required 6 L NC on admission, currently on 2 L and satting in mid 90s. Presentation more consistent with CHF exacerbation over COPD exacerbation. However will treat for both. Low suspicion for PNA: Afebrile, no cough, no leukocytosis, no PNA on CXR, negative COVID, negative influenza A/B. ? Continue LASIX 40 mg IV BID ? Continue AZITHROMYCIN daily (11/04 to present) ? Continue DuoNebs q.6h. PRN ? Hold BETA-LELO in setting of CHF exacerbation. ? Fluid restrictions, low-salt diet ? Consider adding SOLU-MEDROL if symptoms persist or worsen ? Consider repeat echo NSTEMI type II Elevated D-dimer Troponin 0.242, D-dimer 1100. EKG sinus rhythm without acute ST changes. Likely demand ischemia in settings of CHF exacerbation. Low suspicion for PE/DVT based on Wells criteria 0 and 1, respectively. ? Trending troponin ? Pending coag studies ? Mild SREE on CKD stage IV/V CR 2.6, GFR 19, both around baseline. On LASIX, nephrology was following for cardiorenal syndrome versus ATN versus prerenal azotemia. She was continued on LASIX at this time. Anticipate the same course. This time around. But will consider nephrology consult if renal function worsens or does not approve. ? Renally dose meds, avoid overdiuresis and NEPHROTOXINS ? Daily CMP Acute transaminitis Liver cirrhosis AST 78, ALT 99, ALP 155. Likely congestive hepatopathy in setting of CHF exacerbation. Previous imaging from 06/2024 showed hepatic cirrhosis, hepatitis and autoimmune panels were negative then. History of substance abuse including alcohol and METHAMPHETAMINE. Anticipate improvement with diuresis. ? Daily labs ? Pending ammonia level Acute normocytic anemia Hgb 11.3, baseline 13.7. No signs or symptoms of abnormal bleeding. Likely dilutional in settings of overload versus worsening CKD. ? Transfuse if Hgb less than 7 ? Pending coag studies ? Daily labs HTN Previously discharged on AMLODIPINE 10 mg and LISINOPRIL 5 mg daily. Currently BP 162/95. ? Restarted home AMLODIPINE 10 mg daily ? Holding LISINOPRIL in settings of ?SREE Polysubstance use disorder Previous tobacco smoker, current alcohol user, admits to METHAMPHETAMINE use. ? Recommended cessation Social determinant of health She has recurrent admission for CHF exacerbation and other comorbidity, likely related to medication indentation secondary to homelessness. May certainly benefit from long-term placement. ? Referral to social work. Left unilateral mastectomy As a result of unknown breast cancer. No indications for interventions at this time. Health maintenance Diet: Cardiac, fluid restriction, low-salt GI prophylaxis: PROTONIX DVT prophylaxis: HEPARIN subcu Antibiotics: AZITHROMYCIN CODE STATUS: Full code Disposition: Admitted for [facility] Patient case was discussed with attending, Raymundo Ho MD. Jacquie Eduardo DO PGYI Attending Provider Attestation/Addendum 69-year-old female was seen in the ER. She is being admitted for acute hypoxic respiratory failure. She has COPD and systolic heart failure with low ejection fraction The patient has elevated BNP and elevated troponin. The patient will continue on IV Lasix, antibiotic and bronchodilator treatment. The patient has CKD, history of breast cancer status postmastectomy.
[2024-11-04] MEDS: amLODIPine BESYLATE 5 MG TABLET 10 MG PO (23:34)
[2024-11-04] MEDS: AZITHROMYCIN INJ 250 MG in SODIUM CHLORIDE 0.9% 250 ML 250 ML IV (23:41)
[2024-11-04 23:49] LABS: Ammonia < 10 uMol/L (11-32)
[2024-11-05] VITALS (40 sets, daily range): BP systolic 122–186; BP diastolic 76–129; PULSE 62–88; RESP 10–23; TEMP 36.1–36.6; O2SAT 93–100
[2024-11-05] MEDS: ALBUTEROL/IPRATROPIUM (Duoneb) RT SOL 3 ML NEBU INH ×3 (03:18→22:41)
[2024-11-05 05:08] LABS: Troponin I 0.193 ng/mL (0.0-0.045)
[2024-11-05 05:21] LABS: Basophils % (Auto) 0 % (0-2.5); Eosinophils % (Auto) 0 % (0-10); Hematocrit 33.6 % (36.0-46.0); Immature Granulocytes % (Auto) 0 % (0-0); Immature Granulocytes Auto 0.01 Thou/mm3 (0.00-0.00); Lymphocytes # (Auto) 0.3 Thou/mm3 (1.0-4.8); Lymphocytes % (Auto) 9 % (10-50); Mean Corpuscular HGB Conc 32.7 g/dl (31.0-37.0); Mean Corpuscular Hemoglobin 30.7 pg (25.0-35.0); Mean Corpuscular Volume 94 fL (80-100); Monocytes # (Auto) 0.1 Thou/mm3 (0.0-0.8); Monocytes % (Auto) 3 % (0-12); Neutrophils # (Auto) 2.9 Thou/mm3 (1.8-7.7); Neutrophils % (Auto) 88 % (37-80); Nucleated Red Blood Cell % 0 /100 WBC (0); Platelet Count 238 Thou/mm3 (140-440); RDW Standard Deviation 51.3 fL (36.4-46.3); Red Blood Count 3.58 Miln/mm3 (4.00-5.20); White Blood Count 3.2 Thou/mm3 (3.6-11.0)
[2024-11-05 05:41] LABS: INR 1.2 (0.9-1.3); Partial Thromboplastin Time 30.2 Seconds (22.0-36.0); Prothrombin Time 13.1 Seconds (9.0-12.2)
[2024-11-05 06:20] LABS: Alanine Aminotransferase 87 U/L (10-49); Albumin, Serum 3.4 gm/dL (3.4-4.8); Albumin/Globulin Ratio 1.4 (1.2-2.2); Alkaline Phosphatase 145 U/L (46-116); Anion Gap 11 (7-16); Aspartate Amino Transferase 57 U/L (0-34); BUN/Creatinine Ratio 29 Ratio (12-20); Bilirubin,Total 0.3 mg/dL (0.3-1.2); Blood Urea Nitrogen 72 mg/dL (9-23); Calcium 8.1 mg/dL (8.3-10.6); Calcium (Corrected) 8.6 mg/dL (8.5-10.1); Carbon Dioxide 23.2 mMol/L (20.0-31.0); Chloride 108 mMol/L (98-107); Creatinine (Component) 2.5 mg/dL (0.6-1.3); Estimated Creatinine Clearance 17.8 mL/min (>60); Globulin 2.4 gm/dL (2.3-3.5); Glucose 141 mg/dL (74-106); Magnesium 1.7 mg/dL (1.6-2.6); Osmolality,Calculated 306 (275-295); Phosphorous 6.2 mg/dL (2.4-5.1); Potassium 3.9 mMol/L (3.4-5.1); Sodium 142 mMol/L (136-145); Total Protein 5.8 gm/dL (5.7-8.2); eGFR 20 See Note
[2024-11-05] MEDS: hydrALAZINE INJ 20 MG/ML VIAL 10 MG IV (06:21)
[2024-11-05] MEDS: FUROSEMIDE INJ 10 MG/ML 4ML VIAL 40 MG IVP ×2 (06:22→18:38)
[2024-11-05] MEDS: HEPARIN SOD INJ 5000 UNIT/ML VIAL SC (06:23)
[2024-11-05 08:48] LABS: Troponin I 0.144 ng/mL (0.0-0.045)
[2024-11-05 09:17] LABS: Collection Type, Urine Clean Catch
[2024-11-05] MEDS: amLODIPine BESYLATE 5 MG TABLET 10 MG PO (09:17)
[2024-11-05] MEDS: PANTOPRAZOLE INJ 40 MG VIAL IVP (09:17)
[2024-11-05 11:03] LABS: Bacteria,Urine Rare; Bilirubin,Urine Negative (Negative); Blood,Urine Trace (Negative); Clarity,Urine Clear (Clear/Hazy); Color,Urine Lt-Yellow (Lt Yel-Yel); Culture Indicated,Urine Not Indicated; Glucose, Urine Negative (Negative); Hyaline Casts,Urine < 1 /hpf (0-1); Ketones,Urine Negative (Negative); Leukocyte Esterase,Urine Negative (Negative); Nitrite,Urine Negative (Negative); Protein,Urine 1+ (Neg - Trace); RBC,Urine 4 /hpf (0-3); Specific Gravity,Urine 1.011 (1.001-1.035); Squamous Epithelial Cell,Urine 1 /hpf (0-5); Urobilinogen,Urine Negative mg/dL (0.0-1.0); WBC,Urine 2 /hpf (0-5)
--- NOTE | 2024-11-05 12:06 | ECHO_ITS ---
Transthoracic Echo Report Ht (in): 64 Wt (lb): 149 Exam Location: Echo Lab Status: Inpatient Weather Teacher: Caitlin Gomez Indications: Procedure Performed: BP: 147 / 94 HR: 74 Technical Quality: Fair MEASUREMENTS (Male / Female) Normal Values 2D ECHO LV Diastolic Diameter PLAX 4.8 cm 4.2 - 5.9 / 3.9 - 5.3 cm LV Systolic Diameter PLAX 3.6 cm IVS Diastolic Thickness 1.0 cm 0.6 - 1.0 / 0.6 - 0.9 cm LVPW Diastolic Thickness 1.1 cm 0.6 - 1.0 / 0.6 - 0.9 cm LV Relative Wall Thickness 0.4 LVOT Diameter 1.9 cm LA Systolic Diameter LX 3.8 cm 3.0 - 4.0 / 2.7 - 3.8 cm LA Volume Index 48.6 cm?/m? 16 - 28 cm?/m? M-MODE Aortic Root Diameter MM 2.5 cm LA Systolic Diameter MM 5.6 cm LA Ao Ratio MM 2.2 AV Cusp Separation MM 1.9 cm DOPPLER AV Peak Velocity 142.0 cm/s AV Peak Gradient 8.1 mmHg AV Mean Gradient 5.0 mmHg AV Velocity Time Integral 30.4 cm LVOT Peak Velocity 112.0 cm/s LVOT Peak Gradient 5.0 mmHg LVOT Velocity Time Integral 24.1 cm LVOT Cardiac Index 2873.0 cm?/min?m? AV Area Cont Eq vti 2.2 cm? AV Area Cont Eq pk 2.2 cm? MV Area PHT 3.5 cm? MR Peak Velocity 385.0 cm/s MR Peak Gradient 59.3 mmHg Mitral E Point Velocity 95.1 cm/s Mitral A Point Velocity 77.1 cm/s Mitral E to A Ratio 1.2 LV E' Lateral Velocity 4.0 cm/s Mitral E to LV E' Lateral Ratio 23.6 LV E' Septal Velocity 3.6 cm/s Mitral E to LV E' Septal Ratio 26.5 TR Peak Velocity 243.7 cm/s TR Peak Gradient 23.7 mmHg PV Peak Velocity 109.0 cm/s PV Peak Gradient 4.8 mmHg FINDINGS Left Ventricle Normal left ventricular size and wall thickness. The ejection fraction is visually estimated at 45-50%. Right Ventricle Normal right ventricular size and function. Estimated RVSP 45 mm Hg. Left Atrium The left atrial cavity size is severely increased. Right Atrium The right atrial cavity size is severely increased. Atrial Septum The interatrial septum appears normal with no evidence of a shunt. Aorta The aorta is normal by two-dimensional, color flow and Doppler interrogation. Mitral Valve [id number] mitral regurgitation. Mild mitral annular calcification. Aortic Valve The aortic valve is trileaflet and normal by two-dimensional, color flow and Doppler interrogation. There is no significant aortic valve regurgitation. Tricuspid Valve The tricuspid valve is normal by two-dimensional, color flow and Doppler interrogation. There is moderate tricuspid regurgitation. Pulmonic Valve Mild pulmonic valve regurgitation. Vessels Dilated inferior vena cava. Pericardium The pericardium is normal by two-dimensional imaging. There is no significant pericardial effusion. CONCLUSIONS Indication: HFrEF Normal LV size and wall thickness mild global hypokinesis. Estimated EF 45-50%. Normal RV size and function. Estimated RVSP 45 mm Hg. Severe biatrial dilatation. Mild MAC. withMild to moderate MR. Moderate TR. Mild PI. IVC dilated. Madison Hernández (Electronically Signed) Final Date: 06 November 2024 14:21
--- NOTE | 2024-11-05 16:09 | PD.RESPRO ---
Documentation for date of: 11/05/24 Subjective Subjective Interval history: Patient admitted overnight for CHF exacerbation versus COPD. Morning lab indicated downtrending of troponin. Currently patient on 2 L nasal cannula, saturating 98%. Blood pressure WNL. We will continue current regimen of treatment with Lasix 40 IV twice daily. Will restart rest of home meds after reconciliation. Exam Vital Signs Temp Pulse Resp BP Pulse Ox O2 Del Method O2 Flow Rate 97.7 F 82 18 144/99 H 98 Nasal Cannula 2 11/05/24 12:00 11/05/24 12:00 11/05/24 12:00 11/05/24 12:00 11/05/24 12:00 11/05/24 12:00 11/05/24 12:00 Narrative Exam Constitutional: Disheveled, well-nourished, in no acute distress, lying in bed HEENT: NCAT, EOMI, reactive round pupils b/l, patent nares b/l, moist mucous membranes, on nasal cannula Lung: CTAB, no wheezing, no rhonchi Heart: Regular S1S2, no murmurs, gallops, or rubs Abdomen: Soft, non-distended, non-tender, bowel sounds present throughout Extremities: No cyanosis, clubbing, or edema, LE pulses present b/l Neurologic: No focal sensory or motor deficits noted, AOx3, appropriate affect Skin: Warm, dry, no lesions or rashes noted Objective Labs 11/09/24 04:54 11/09/24 04:54 Labs: Laboratory Results - last 24 hr 11/04/24 11/04/24 11/04/24 20:45 20:53 23:14 WBC 5.7 RBC 3.65 L Hgb 11.3 L Hct 34.3 L MCV 94 MCH 31.0 MCHC 32.9 RDW Std Deviation 50.8 H Plt Count 188 D Neut % (Auto) 76 Lymph % (Auto) 15 [place] % (Auto) 7 Eos % (Auto) 1 Baso % (Auto) 1 Neut # (Auto) 4.3 Lymph # (Auto) 0.8 L [place] # (Auto) 0.4 Eos # (Auto) 0.1 Baso # (Auto) 0.1 Immature Gran # (Auto) 0.02 H Absolute Nucleated RBC 0.00 Immature Gran % 0 Nucleated RBC % 0 PT INR APTT D-Dimer 1100 H Puncture Site Right Radial ABG pH 7.35 ABG pCO2 45 ABG pO2 225 H ABG HCO3 24 ABG O2 Saturation 100 H ABG Base Excess -1 FiO2 21 Sodium 143 Potassium 3.8 Chloride 108 H Carbon Dioxide 25.3 Anion Gap 10 BUN 67 H Creatinine 2.6 H Estim Creat Clear Calc 17.1 L eGFR 19 L BUN/Creatinine Ratio 26 H Glucose 99 Calculated Osmolality 304 H Calcium 8.6 Corrected Calcium 8.8 Phosphorus Magnesium 1.8 Total Bilirubin 0.3 AST 78 H ALT 99 H Alkaline Phosphatase 155 H Ammonia < 10 L Troponin I 0.242 H* B-Natriuretic Peptide > 3280 H* Total Protein 6.2 Albumin 3.7 Globulin 2.5 Albumin/Globulin Ratio 1.5 Ur Collection Type Urine Color Urine Clarity Urine pH Ur Specific [place] Urine Protein Urine Glucose (UA) Urine Ketones Urine Blood Urine Nitrite Urine Bilirubin Urine Urobilinogen (Auto) Ur Leukocyte Esterase Urine RBC Urine WBC Ur Squamous Epith Cells Urine Bacteria Hyaline Casts Ur Culture Indicated? 11/05/24 11/05/24 11/05/24 02:25 04:29 07:51 WBC 3.2 L D RBC 3.58 L Hgb 11.0 L Hct 33.6 L MCV 94 MCH 30.7 MCHC 32.7 RDW Std Deviation 51.3 H Plt Count 238 D Neut % (Auto) 88 H Lymph % (Auto) 9 L [place] % (Auto) 3 Eos % (Auto) 0 Baso % (Auto) 0 Neut # (Auto) 2.9 Lymph # (Auto) 0.3 L [place] # (Auto) 0.1 Eos # (Auto) 0.0 Baso # (Auto) 0.0 Immature Gran # (Auto) 0.01 H Absolute Nucleated RBC 0.00 Immature Gran % 0 Nucleated RBC % 0 PT 13.1 H INR 1.2 APTT 30.2 D-Dimer Puncture Site ABG pH ABG pCO2 ABG pO2 ABG HCO3 ABG O2 Saturation ABG Base Excess FiO2 Sodium 142 Potassium 3.9 Chloride 108 H Carbon Dioxide 23.2 Anion Gap 11 BUN 72 H Creatinine 2.5 H Estim Creat Clear Calc 17.8 L eGFR 20 L BUN/Creatinine Ratio 29 H Glucose 141 H Calculated Osmolality 306 H Calcium 8.1 L Corrected Calcium 8.6 Phosphorus 6.2 H Magnesium 1.7 Total Bilirubin 0.3 AST 57 H ALT 87 H Alkaline Phosphatase 145 H Ammonia Troponin I 0.193 H* 0.144 H* B-Natriuretic Peptide Total Protein 5.8 Albumin 3.4 Globulin 2.4 Albumin/Globulin Ratio 1.4 Ur Collection Type Urine Color Urine Clarity Urine pH Ur Specific [place] Urine Protein Urine Glucose (UA) Urine Ketones Urine Blood Urine Nitrite Urine Bilirubin Urine Urobilinogen (Auto) Ur Leukocyte Esterase Urine RBC Urine WBC Ur Squamous Epith Cells Urine Bacteria Hyaline Casts Ur Culture Indicated? 11/05/24 09:11 WBC RBC Hgb Hct MCV MCH MCHC RDW Std Deviation Plt Count Neut % (Auto) Lymph % (Auto) [place] % (Auto) Eos % (Auto) Baso % (Auto) Neut # (Auto) Lymph # (Auto) [place] # (Auto) Eos # (Auto) Baso # (Auto) Immature Gran # (Auto) Absolute Nucleated RBC Immature Gran % Nucleated RBC % PT INR APTT D-Dimer Puncture Site ABG pH ABG pCO2 ABG pO2 ABG HCO3 ABG O2 Saturation ABG Base Excess FiO2 Sodium Potassium Chloride Carbon Dioxide Anion Gap BUN Creatinine Estim Creat Clear Calc eGFR BUN/Creatinine Ratio Glucose Calculated Osmolality Calcium Corrected Calcium Phosphorus Magnesium Total Bilirubin AST ALT Alkaline Phosphatase Ammonia Troponin I B-Natriuretic Peptide Total Protein Albumin Globulin Albumin/Globulin Ratio Ur Collection Type Clean Catch Urine Color Lt-Yellow Urine Clarity Clear Urine pH 6.0 Ur Specific [place] 1.011 Urine Protein 1+ A Urine Glucose (UA) Negative Urine Ketones Negative Urine Blood Trace Urine Nitrite Negative Urine Bilirubin Negative Urine Urobilinogen (Auto) Negative Ur Leukocyte Esterase Negative Urine RBC 4 H Urine WBC 2 Ur Squamous Epith Cells 1 Urine Bacteria Rare Hyaline Casts < 1 Ur Culture Indicated? Not Indicated ABG Interpretation ABG results: 11/04/24 20:53 ABG pH 7.35 ABG pCO2 45 ABG pO2 225 H ABG HCO3 24 ABG O2 Saturation 100 H ABG Base Excess -1 Quality Measures Quality Measures none Advance care planning discussed with:: other Assessment & Plan Assessment Current Active Medications: Generic Name Dose Route Start Last Admin Trade Name Freq PRN Reason Stop Dose Admin Acetaminophen 650 mg 11/04/24 22:45 Acetaminophen 325 Mg Tablet PO 12/04/24 22:44 Q6H PRN PAIN SCALE 1-3 (mild Acetaminophen 650 mg 11/04/24 22:45 Acetaminophen 325 Mg Tablet PO 12/04/24 22:44 Q6H PRN Fever >100.4 Hydrocodone Bitart/Acetaminophen 1 tab 11/04/24 22:45 Hydrocodone/Apap 10/325 Tab PO 11/09/24 22:44 Q4HR PRN PAIN SCALE 7-10 (Severe Albuterol/Ipratropium 3 ml 11/04/24 23:00 11/05/24 06:40 Albuterol/Ipratropium (Duoneb) Rt Dee 3 Ml Nebu INH 12/04/24 22:59 3 ml Q4HRRT KENNEDY Administration Amlodipine Besylate 10 mg 11/04/24 23:10 11/05/24 09:17 Amlodipine Besylate 5 Mg Tablet PO 12/04/24 23:09 10 mg QDAY KENNEDY Administration Furosemide 40 mg 11/05/24 06:00 11/05/24 06:22 Furosemide Inj 10 Mg/Ml 4ml Vial IVP 12/05/24 05:59 40 mg BIDD KENNEDY Administration Heparin Sodium (Porcine) 5,000 unit 11/05/24 06:00 11/05/24 15:40 Heparin Sod Inj 5000 Unit/Ml Vial SC 11/19/24 05:59 Not Given Q8HR KENNEDY Hydralazine HCl 10 mg 11/05/24 08:52 Hydralazine Inj 20 Mg/Ml Vial IV 12/05/24 08:49 Q3H PRN hypertension Azithromycin 250 mg/ Sodium 250 mls @ 250 mls/hr 11/05/24 21:00 Chloride IV 11/12/24 20:59 QDAY@2100 KENNEDY Ondansetron HCl 4 mg 11/04/24 22:45 Ondansetron Inj 2 Mg/Ml Inj 2 Ml IV 12/04/24 22:44 Q6H PRN NAUSEA OR VOMITING Protocol Oxycodone/Acetaminophen 1 tab 11/04/24 22:45 Oxycodone/Apap 5/325 Tablet PO 11/09/24 22:44 Q6H PRN PAIN SCALE 4-6 (Moderate Pantoprazole Sodium 40 mg 11/05/24 09:00 11/05/24 09:17 Pantoprazole Inj 40 Mg Vial IVP 12/05/24 08:59 40 mg QDAY KENNEDY Administration Plan In summary: 69-year-old female PMHx of HFrEF 30-35% 06/2024, COPD, CKD 3B, HTN, polysubstance use disorder, s/p right mastectomy, presented with SOB, admitted for AHRF in setting of CHF > COPD exacerbation. Acute hypoxemic respiratory failure CHF exacerbation COPD exacerbation, less likely Presenting with 1 week of difficulty breathing, and lower extremity swelling. Lack of medication adhesion i.e. lasix secondary to homelessness. CXR showed mild to moderate CHF. BNP >32,000. Lung exam showed bibasilar Rales but no wheezing. Had 2+ bilateral lower extremity pitting edema. Last echo in 06/2024 with EF 30-35%. ABG pH 7.35, CO2 45, O2 225, bicarb 24. Required 6 L NC on admission, currently on 2 L and satting in mid 90s. Presentation more consistent with CHF exacerbation over COPD exacerbation. However will treat for both. Low suspicion for PNA: Afebrile, no cough, no leukocytosis, no PNA on CXR, negative COVID, negative influenza A/B. ? Continue LASIX 40 mg IV BID ? Continue AZITHROMYCIN daily (11/04 to present) ? Continue DuoNebs q.6h. PRN ? Hold BETA-LELO in setting of CHF exacerbation. ? Fluid restrictions, low-salt diet ? Echocardiogram ordered Troponinemia type II, downtrending Elevated D-dimer Troponin 0.242, D-dimer 1100. EKG sinus rhythm without acute ST changes. Likely demand ischemia in settings of CHF exacerbation. Low suspicion for PE/DVT based on Wells criteria 0 and 1, respectively. Most likely type II in setting of CHF exacerbation ? Mild SREE on CKD stage IV/V CR 2.6, GFR 19, both around baseline. On LASIX, nephrology was following for cardiorenal syndrome versus ATN versus prerenal azotemia. She was continued on LASIX at this time. Anticipate the same course. This time around. But will consider nephrology consult if renal function worsens or does not approve. ? Renally dose meds, avoid overdiuresis and NEPHROTOXINS ? Daily CMP Acute transaminitis Liver cirrhosis AST 78, ALT 99, ALP 155. Likely congestive hepatopathy in setting of CHF exacerbation. Previous imaging from 06/2024 showed hepatic cirrhosis, hepatitis and autoimmune panels were negative then. History of substance abuse including alcohol and METHAMPHETAMINE. Anticipate improvement with diuresis. ? Daily labs ? Pending ammonia level Acute normocytic anemia Hgb 11.3, baseline 13.7. No signs or symptoms of abnormal bleeding. Likely dilutional in settings of overload versus worsening CKD. ? Transfuse if Hgb less than 7 ? Pending coag studies ? Daily labs HTN Previously discharged on AMLODIPINE 10 mg and LISINOPRIL 5 mg daily. Currently BP 162/95. ? Restarted home AMLODIPINE 10 mg daily ? Holding LISINOPRIL in settings of ?SREE Polysubstance use disorder Previous tobacco smoker, current alcohol user, admits to METHAMPHETAMINE use. ? Recommended cessation Social determinant of health She has recurrent admission for CHF exacerbation and other comorbidity, likely related to medication indentation secondary to homelessness. May certainly benefit from long-term placement. ? Referral to social work. Left unilateral mastectomy As a result of unknown breast cancer. No indications for interventions at this time. Health maintenance Diet: Cardiac, fluid restriction, low-salt GI prophylaxis: PROTONIX DVT prophylaxis: HEPARIN subcu Antibiotics: AZITHROMYCIN CODE STATUS: Full code Disposition: Admitted for [facility] This patient care was discussed with attending Dr. Dillan Baig MD PGY-2 Disclaimer: Minor errors in telemarketing fundraiser may be present since this note was dictated by speech recognition software. Attending Provider Attestation/Addendum I attest that I was physically present for the evaluation, physical examination, lab and imaging review of the patient with the residents. I discussed the case with the residents and agree with the findings and plans of care as documented above. Devin Grimaldo MD
[2024-11-05] MEDS: ACETAMINOPHEN 325 MG TABLET 650 MG PO (16:29)
[2024-11-05] MEDS: AZITHROMYCIN INJ 250 MG in SODIUM CHLORIDE 0.9% 250 ML 250 ML IV (21:44)
[2024-11-06] VITALS (15 sets, daily range): BP systolic 125–141; BP diastolic 65–86; PULSE 61–91; RESP 16–97; TEMP 36.1–36.6; O2SAT 94–100
[2024-11-06] MEDS: ALBUTEROL/IPRATROPIUM (Duoneb) RT SOL 3 ML NEBU INH ×6 (03:50→22:47)
[2024-11-06] MEDS: FUROSEMIDE INJ 10 MG/ML 4ML VIAL 40 MG IVP (05:10)
[2024-11-06] MEDS: HEPARIN SOD INJ 5000 UNIT/ML VIAL SC ×2 (05:11→13:20)
[2024-11-06 06:25] LABS: Basophils % (Auto) 1 % (0-2.5); Eosinophils # (Auto) 0.1 Thou/mm3 (0.0-0.5); Eosinophils % (Auto) 1 % (0-10); Hematocrit 30.8 % (36.0-46.0); Immature Granulocytes % (Auto) 0 % (0-0); Immature Granulocytes Auto 0.02 Thou/mm3 (0.00-0.00); Lymphocytes # (Auto) 1.3 Thou/mm3 (1.0-4.8); Lymphocytes % (Auto) 17 % (10-50); Mean Corpuscular HGB Conc 32.5 g/dl (31.0-37.0); Mean Corpuscular Hemoglobin 30.6 pg (25.0-35.0); Mean Corpuscular Volume 94 fL (80-100); Monocytes # (Auto) 0.5 Thou/mm3 (0.0-0.8); Monocytes % (Auto) 7 % (0-12); Neutrophils # (Auto) 5.5 Thou/mm3 (1.8-7.7); Neutrophils % (Auto) 74 % (37-80); Nucleated Red Blood Cell % 0 /100 WBC (0); Platelet Count 244 Thou/mm3 (140-440); RDW Standard Deviation 51.3 fL (36.4-46.3); Red Blood Count 3.27 Miln/mm3 (4.00-5.20); White Blood Count 7.3 Thou/mm3 (3.6-11.0)
[2024-11-06 06:40] LABS: Alanine Aminotransferase 64 U/L (10-49); Albumin, Serum 3.1 gm/dL (3.4-4.8); Albumin/Globulin Ratio 1.5 (1.2-2.2); Alkaline Phosphatase 126 U/L (46-116); Anion Gap 12 (7-16); Aspartate Amino Transferase 33 U/L (0-34); BUN/Creatinine Ratio 31 Ratio (12-20); Bilirubin,Total 0.2 mg/dL (0.3-1.2); Blood Urea Nitrogen 80 mg/dL (9-23); Calcium 7.1 mg/dL (8.3-10.6); Calcium (Corrected) 7.8 mg/dL (8.5-10.1); Carbon Dioxide 24.3 mMol/L (20.0-31.0); Chloride 107 mMol/L (98-107); Creatinine (Component) 2.6 mg/dL (0.6-1.3); Estimated Creatinine Clearance 18.8 mL/min (>60); Globulin 2.1 gm/dL (2.3-3.5); Glucose 143 mg/dL (74-106); Magnesium 1.5 mg/dL (1.6-2.6); Osmolality,Calculated 310 (275-295); Potassium 3.3 mMol/L (3.4-5.1); Sodium 143 mMol/L (136-145); Total Protein 5.2 gm/dL (5.7-8.2); eGFR 19 See Note
[2024-11-06] MEDS: amLODIPine BESYLATE 5 MG TABLET 10 MG PO (08:54)
[2024-11-06] MEDS: PANTOPRAZOLE INJ 40 MG VIAL IVP (08:55)
[2024-11-06] MEDS: Magnesium Sulfate 4 GM Ivpb 4 GM/50 ML BAG IV (10:15)
--- NOTE | 2024-11-06 10:39 | PD.RESPRO ---
Documentation for date of: 11/06/24 Exam Vital Signs Temp Pulse Resp BP Pulse Ox O2 Del Method O2 Flow Rate 97.5 F 71 17 128/76 94 L Nasal Cannula 2 11/06/24 08:00 11/06/24 08:54 11/06/24 08:00 11/06/24 08:54 11/06/24 08:00 11/06/24 08:00 11/06/24 08:00 Objective Labs 11/06/24 04:45 11/06/24 04:45 Labs: Laboratory Results - last 24 hr 11/05/24 11/06/24 09:11 04:45 WBC 7.3 D RBC 3.27 L Hgb 10.0 L Hct 30.8 L MCV 94 MCH 30.6 MCHC 32.5 RDW Std Deviation 51.3 H Plt Count 244 Neut % (Auto) 74 Lymph % (Auto) 17 [place] % (Auto) 7 Eos % (Auto) 1 Baso % (Auto) 1 Neut # (Auto) 5.5 Lymph # (Auto) 1.3 [place] # (Auto) 0.5 Eos # (Auto) 0.1 Baso # (Auto) 0.0 Immature Gran # (Auto) 0.02 H Absolute Nucleated RBC 0.00 Immature Gran % 0 Nucleated RBC % 0 Sodium 143 Potassium 3.3 L D Chloride 107 Carbon Dioxide 24.3 Anion Gap 12 BUN 80 H Creatinine 2.6 H Estim Creat Clear Calc 18.8 L eGFR 19 L BUN/Creatinine Ratio 31 H Glucose 143 H Calculated Osmolality 310 H Calcium 7.1 L Corrected Calcium 7.8 L Phosphorus 5.0 Magnesium 1.5 L Total Bilirubin 0.2 L AST 33 ALT 64 H Alkaline Phosphatase 126 H Total Protein 5.2 L Albumin 3.1 L Globulin 2.1 L Albumin/Globulin Ratio 1.5 Ur Collection Type Clean Catch Urine Color Lt-Yellow Urine Clarity Clear Urine pH 6.0 Ur Specific [place] 1.011 Urine Protein 1+ A Urine Glucose (UA) Negative Urine Ketones Negative Urine Blood Trace Urine Nitrite Negative Urine Bilirubin Negative Urine Urobilinogen (Auto) Negative Ur Leukocyte Esterase Negative Urine RBC 4 H Urine WBC 2 Ur Squamous Epith Cells 1 Urine Bacteria Rare Hyaline Casts < 1 Ur Culture Indicated? Not Indicated ABG Interpretation ABG results: 11/04/24 20:53 ABG pH 7.35 ABG pCO2 45 ABG pO2 225 H ABG HCO3 24 ABG O2 Saturation 100 H ABG Base Excess -1 Quality Measures Quality Measures none Assessment & Plan Assessment Current Active Medications: Generic Name Dose Route Start Last Admin Trade Name David PRN Reason Stop Dose Admin Acetaminophen 650 mg 11/04/24 22:45 11/05/24 16:29 Acetaminophen 325 Mg Tablet PO 12/04/24 22:44 650 mg Q6H PRN Administration PAIN SCALE 1-3 (mild Acetaminophen 650 mg 11/04/24 22:45 Acetaminophen 325 Mg Tablet PO 12/04/24 22:44 Q6H PRN Fever >100.4 Hydrocodone Bitart/Acetaminophen 1 tab 11/04/24 22:45 Hydrocodone/Apap 10/325 Tab PO 11/09/24 22:44 Q4HR PRN PAIN SCALE 7-10 (Severe Albuterol/Ipratropium 3 ml 11/04/24 23:00 11/06/24 07:24 Albuterol/Ipratropium (Duoneb) Rt Dee 3 Ml Nebu INH 12/04/24 22:59 3 ml Q4HRRT KENNEDY Administration Amlodipine Besylate 10 mg 11/04/24 23:10 11/06/24 08:54 Amlodipine Besylate 5 Mg Tablet PO 12/04/24 23:09 10 mg QDAY KENNEDY Administration Calcium Acetate 667 mg 11/06/24 17:30 Calcium Acetate 667 Mg Tablet PO 12/06/24 17:29 BIDWM KENNEDY Furosemide 40 mg 11/05/24 06:00 11/06/24 05:10 Furosemide Inj 10 Mg/Ml 4ml Vial IVP 12/05/24 05:59 40 mg BIDD KENNEDY Administration Heparin Sodium (Porcine) 5,000 unit 11/05/24 06:00 11/06/24 05:11 Heparin Sod Inj 5000 Unit/Ml Vial SC 11/19/24 05:59 5,000 unit Q8HR KENNEDY Administration Hydralazine HCl 10 mg 11/05/24 08:52 Hydralazine Inj 20 Mg/Ml Vial IV 12/05/24 08:49 Q3H PRN hypertension Azithromycin 250 mg/ Sodium 250 mls @ 250 mls/hr 11/05/24 21:00 11/05/24 21:44 Chloride IV 11/09/24 20:59 250 mls/hr QDAY@2100 KENNEDY Administration Magnesium Sulfate 4 gm in 50 mls @ 12.5 mls/hr 11/06/24 08:14 Magnesium Sulfate Ivpb IV 11/06/24 12:13 X1 ONE Ondansetron HCl 4 mg 11/04/24 22:45 Ondansetron Inj 2 Mg/Ml Inj 2 Ml IV 12/04/24 22:44 Q6H PRN NAUSEA OR VOMITING Protocol Oxycodone/Acetaminophen 1 tab 11/04/24 22:45 Oxycodone/Apap 5/325 Tablet PO 11/09/24 22:44 Q6H PRN PAIN SCALE 4-6 (Moderate Pantoprazole Sodium 40 mg 11/05/24 09:00 11/06/24 08:55 Pantoprazole Inj 40 Mg Vial IVP 12/05/24 08:59 40 mg QDAY KENNEDY Administration
[2024-11-06] MEDS: POTASSIUM CHLORIDE 10% 20 MEQ/15 ML UDC PO (13:20)
[2024-11-06] MEDS: Lisinopril 2.5 MG TABLET 5 MG PO (13:20)
--- NOTE | 2024-11-06 14:46 | ESDS_ITS ---
<Statement entered by Zion Baig MD - 11/07/24 07:04> I discussed with and supervised the rn intern physician involved in the care of this patient. Patient assessment and plan was discussed with entire medicine team, including my attending. I agree with the assessment and plan as documented by rn intern doctor. Patient care was discussed with my attending physician Dr. Dillan Baig, PGY-2 Planned Discharge Date 11/06/24 DS: Providers Provider Date of admission: 11/04/24 22:45 Primary care physician: Hugo Thomas MD Admitting Provider: Raymundo Ho MD Attending Provider on Admission: Raymundo Ho MD Consults: 11/05/24 12:09 Referral Physical Therapy Routine Comment: Physician Instructions: Attending Provider on DC: Devin Grimaldo MD Discharging Provider: Joshua Gomez MD DS: Diagnosis Problem List Completed Was Problem List Reviewed/Reconciled?: Yes Hospital Course Hospital Course Hospital course: In summary: 69-year-old female PMHx of HFrEF 30-35% 06/2024, COPD, CKDIV HTN, polysubstance use disorder, s/p right mastectomy, presented with SOB, admitted for AHRF in setting of CHF > COPD exacerbation. With regards to patient's acute respiratory failure with hypoxia, etiology was deemed to be most likely CHF exacerbation. COPD exacerbation was ruled out. Patient was diuresed with Lasix 40 Mg IV twice daily for 2 days after which her shortness of breath resolved and she was weaned off of supplemental oxygen. Walk test prior to discharge was negative and patient was saturating at 92% on room air. Regards to patient's SREE on CKD stage IV, his creatinine remained stable at 2.6. This may be her new baseline, however she will need to follow-up with her PCP for repeat renal panel in 1 week. All patient's labs are now returning to her baseline. Patient is now clinically stable and fit for discharge to the community. Discharge diagnoses: 1. Acute respiratory failure with hypoxia secondary to CHF exacerbation?resolving 2. COPD exacerbation?ruled out 3. NSTEMI likely type II?resolving 4. Elevated D-dimer 5. Transaminitis?resolving 6. Normocytic anemia 7. Primary hypertension 8. Tobacco use disorder 9. Methamphetamine abuse 10. Breast cancer s/p left mastectomy Discharge plan: ? We have decreased your dose of Coreg to 12.5 Mg p.o. twice daily. Please take 1 tablet twice a day. ? We have increased your dose of Lasix, water pill to 40 Mg p.o. daily. Please take 1 tablet once a day. ? We have put on hold on your prednisone dose. Please follow-up with his PCP before restarting. ? Please continue the rest of your home medication as before. - Follow up with your primary care physician within 1 week of discharge. If you do not have a primary care physician, please follow up with the [facility] Residents clinic ([phone]) ? If you experience any new, worsening or persistent symptoms either call your primary doctor, or dial 911 or present to the emergency department. We are grateful to be able to participate in Ms. Freed's care. We wish her the best. Plan of care discussed with Attending Dr. Grimaldo and PGY2 Dr. Safia Gomez MD PGY 1 Time spent discussing smoking cessation with patient: more than 10 minutes (15) Time Spent with Patient Time attestation: Total time spent providing and/or coordinating discharge services: Time spent: Greater than 30 minutes (36) Exam Vital Signs Temp Pulse Resp BP Pulse Ox O2 Del Method O2 Flow Rate 97.8 F 79 16 131/78 H 95 Room Air 2 11/06/24 12:00 11/06/24 13:20 11/06/24 12:00 11/06/24 13:20 11/06/24 12:00 11/06/24 12:00 11/06/24 12:00 Narrative Exam Constitutional: Disheveled, well-nourished, in no acute distress, lying in bed HEENT: NCAT, EOMI, reactive round pupils b/l, patent nares b/l, moist mucous membranes Lung: CTAB, no wheezing, no rhonchi Heart: Regular S1S2, no murmurs, gallops, or rubs Abdomen: Soft, non-distended, non-tender, bowel sounds present throughout Extremities: No cyanosis, clubbing, or edema, LE pulses present b/l Neurologic: No focal sensory or motor deficits noted, AOx3, appropriate affect Skin: Warm, dry, no lesions or rashes noted Discharge Plan Plan Patient Disposition: HOME (Self Care) Care Plan Goals: ? We have decreased your dose of Coreg to 12.5 Mg p.o. twice daily. Please take 1 tablet twice a day. ? We have increased your dose of Lasix, water pill to 40 Mg p.o. daily. Please take 1 tablet once a day. ? We have put on hold on your prednisone dose. Please follow-up with his PCP before restarting. ? Please continue the rest of your home medication as before. - Follow up with your primary care physician within 1 week of discharge. If you do not have a primary care physician, please follow up with the [facility] Residents clinic ([phone]) ? If you experience any new, worsening or persistent symptoms either call your primary doctor, or dial 911 or present to the emergency department. Prescriptions/Referrals Prescriptions/Med Rec: New carvedilol 12.5 mg Tablet 12.5 mg PO BIDWM 30 Days Qty: 60 2RF furosemide [Lasix] 40 mg tablet 40 mg PO QDAY Qty: 30 2RF Continued bupropion HCl 150 mg Tablet Sustained-Release 12 Hr 150 mg PO BID tolterodine 4 mg Capsule,Extended Release 24hr 4 mg PO QDAY amlodipine 10 mg tablet 10 mg PO QDAY Qty: 30 1RF Trelegy Ellipta 200-62.5-25 mcg blister with device 2 inh inhalation BID Qty: 60 0RF lisinopril 5 mg tablet 5 mg PO QDAY Qty: 30 0RF Held prednisone 50 mg tablet 50 mg PO QDAY Qty: 4 0RF Hold Instructions: Resume on 11/25/24. Until seeing primary care doctor Discontinued carvedilol 25 mg tablet 25 mg PO BID 30 Days Qty: 60 0RF Rx Instructions: must administer with a meal/food furosemide 20 mg tablet 20 mg PO Q OTHER DAY Qty: 60 0RF Referrals: Hugo Thomas MD [Primary Care Provider] - Patient/Caregiver Discharge Instructions Print Language: French Stand Alone Forms: Fern Award Info., Patient Portal Info Letter Discharge Order Discharge Orders: Discharge (Routine); Ordered 11/06/24 Ordered By: Joshua Gomez Quality Discharge Quality Measures VTE prophylaxis Attestestation Attestation I attest that I was physically present for the evaluation, physical examination, lab and imaging review of the patient with the residents. I discussed the case with the residents and agree with the findings and plans of care as documented above. Devin Grimaldo MD
--- NOTE | 2024-11-06 17:18 | PC.SS ---
Johana Freed is 69 year old female admitted to [facility] for COPD. SS conducted bedside contact with the patient to complete initial assessment and to discuss discharge planning.? SW used all precautionary measures to complete initial. Role and reason for the contact was explained to Johana. Pt is alert and oriented times 4 Patient confirmed is homeless and recently stayed at [facility] and [facility]. Pt phone is ?not working?. Patient identifies Jonh Rutherford, friend [phone], as her surrogate decision maker. Pt states prior to hospitalization she is able to complete most ADL?s independently. Pt has walker but does not like that it does not have the seat, no other DME nor O2 needsPt confirmed history of mental health; pt has hx of substance abuse where pt stated last use was 2 ? months ago as she was able? to ?quit? on her own. Pts PCP is Hugo Thomas. Discharge options discussed and the pt states needs assistance with housing; Community Resources provided and indepth discussion took place of pt going to [facility] to get assistance with housing and other needs; SS went over assistance that can be provided with [facility]; SS went over options of room and board since pt has means (SDI funds) to assist with paying. Pt is ambulatory and if we can assist with transportation will do so. No further intervention required at this time, healthcare social worker would be available to address any further concerns. DC Plan: [facility] Contact: Jonh Rutherford, friend [phone] Address: [facility] PCP: Hugo Thomas
--- NOTE | 2024-11-06 17:30 | PC.SS ---
Called [facility] offices are now closed; SS waiting for further instructions SS met with pt who stated pt is going to appeal decision; confirmed this is new admission and pt is able SS attempted to contact [facility]; no options; pt is ambulatory and provided bus as option for transporation SS recevied call from medical team asking for assistance for transporation Rounding note: Pt to receive PT
[2024-11-07] VITALS (17 sets, daily range): BP systolic 135–177; BP diastolic 75–107; PULSE 68–87; RESP 12–98; TEMP 36.1–36.7; O2SAT 91–100; BMI 25.6; BMI 14.0; BMI 25.4
[2024-11-07] MEDS: ALBUTEROL/IPRATROPIUM (Duoneb) RT SOL 3 ML NEBU INH ×6 (02:19→23:42)
[2024-11-07 06:08] LABS: Basophils # (Auto) 0.1 Thou/mm3 (0.0-0.2); Basophils % (Auto) 1 % (0-2.5); Eosinophils # (Auto) 0.2 Thou/mm3 (0.0-0.5); Eosinophils % (Auto) 3 % (0-10); Hematocrit 34.1 % (36.0-46.0); Hemoglobin 11.4 g/dL (12.0-16.0); Immature Granulocytes % (Auto) 0 % (0-0); Immature Granulocytes Auto 0.01 Thou/mm3 (0.00-0.00); Lymphocytes # (Auto) 1.6 Thou/mm3 (1.0-4.8); Lymphocytes % (Auto) 27 % (10-50); Mean Corpuscular HGB Conc 33.4 g/dl (31.0-37.0); Mean Corpuscular Hemoglobin 31.4 pg (25.0-35.0); Mean Corpuscular Volume 94 fL (80-100); Monocytes # (Auto) 0.5 Thou/mm3 (0.0-0.8); Monocytes % (Auto) 9 % (0-12); Neutrophils # (Auto) 3.5 Thou/mm3 (1.8-7.7); Neutrophils % (Auto) 60 % (37-80); Nucleated Red Blood Cell % 0 /100 WBC (0); Platelet Count 171 Thou/mm3 (140-440); RDW Standard Deviation 50.9 fL (36.4-46.3); Red Blood Count 3.63 Miln/mm3 (4.00-5.20); White Blood Count 5.8 Thou/mm3 (3.6-11.0)
[2024-11-07 06:36] LABS: Alanine Aminotransferase 55 U/L (10-49); Albumin, Serum 3.3 gm/dL (3.4-4.8); Albumin/Globulin Ratio 1.4 (1.2-2.2); Alkaline Phosphatase 126 U/L (46-116); Anion Gap 12 (7-16); Aspartate Amino Transferase 29 U/L (0-34); BUN/Creatinine Ratio 26 Ratio (12-20); Bilirubin,Total < 0.2 mg/dL (0.3-1.2); Blood Urea Nitrogen 67 mg/dL (9-23); Calcium 7.5 mg/dL (8.3-10.6); Calcium (Corrected) 8.1 mg/dL (8.5-10.1); Carbon Dioxide 24.2 mMol/L (20.0-31.0); Chloride 110 mMol/L (98-107); Creatinine (Component) 2.6 mg/dL (0.6-1.3); Estimated Creatinine Clearance 18.8 mL/min (>60); Globulin 2.4 gm/dL (2.3-3.5); Glucose 79 mg/dL (74-106); Magnesium 1.4 mg/dL (1.6-2.6); Osmolality,Calculated 308 (275-295); Potassium 3.7 mMol/L (3.4-5.1); Sodium 146 mMol/L (136-145); Total Protein 5.7 gm/dL (5.7-8.2); eGFR 19 See Note
[2024-11-07 06:48] LABS: Phosphorous 3.5 mg/dL (2.4-5.1)
[2024-11-07] MEDS: FLUTICASONE 220 MCG 2 PUFF INH (10:02)
[2024-11-07] MEDS: amLODIPine BESYLATE 5 MG TABLET 10 MG PO (10:25)
[2024-11-07] MEDS: Lisinopril 2.5 MG TABLET 5 MG PO (10:27)
[2024-11-07] MEDS: Magnesium Sulfate 2 GM Ivpb 2 GM/50 ML BAG IV (10:33)
[2024-11-07] MEDS: Magnesium Sulfate 4 GM Ivpb 4 GM/50 ML BAG IV (10:34)
[2024-11-07] MEDS: PANTOPRAZOLE INJ 40 MG VIAL IVP (10:34)
--- NOTE | 2024-11-07 11:19 | PC.RT ---
SS met with patient at bedside to inquire about appeal status. Patient stated it was too late yesterday and [employer] was closed. Therefore, she was unable to make appeal. Patient stated she was confused because previous SWs informed her she was unable to make appeal. SS reminded patient of [employer] process and Medicare rights for patient. Assistance at bedside provided to patient to contact [facility] [phone] to file appeal. Patient was provided with case# [id number].
--- NOTE | 2024-11-07 12:28 | PC.SS ---
Addendum entered by Smita Weeks 11/07/24 13:13: [facility] receipt letter received, CASE # [id number], EMR PEREZ: GQPHRI. Patient's chart uploaded to [facility] for review, pending [facility]'s response. Original Note: SS met with patient at bedside to inquire about appeal status. Patient stated it was too late yesterday and [employer] was closed. Therefore, she was unable to make appeal. Patient stated she was confused because previous SWs informed her she was unable to make appeal. SS reminded patient of [employer] process and Medicare rights for patient. Assistance at bedside provided to patient to contact [facility] [phone] to file appeal. Patient was provided with case# [id number].
--- NOTE | 2024-11-07 13:15 | ESPR_ITS ---
<Statement entered by Juan Fowler MD - 11/09/24 16:07> Agree with plan and examination finding on the note below. Patient seen and examined at bedside today. Labs and imaging reviewed. Patient care discussed with my attending Dr. Grimaldo and co-resident Dr. Gomez. Documentation for date of: 11/07/24 Subjective Subjective Interval history: Patient was seen and examined at bedside this AM. No acute exents overnight. Patient tolerating diet, adequate urine output and mentation is at baseline. Patient complains of a wheeze. Started on fluticasone inhaler 2 puffs twice daily Currently on IV diuresis with Lasix 40 Mg IV twice daily No urine output charted since admission. However patient endorses she passes urine. Increased lisinopril to 20 Mg p.o. daily from 5 Mg p.o. daily K3.7 and Mg 1.4. Repleted with KCl 40 mEq p.o. x 1 and magnesium sulfate 6 g IV x 1 Exam Vital Signs Temp Pulse Resp BP Pulse Ox O2 Del Method O2 Flow Rate 97 F 71 17 142/87 H 91 L Room Air 2 11/07/24 12:00 11/07/24 12:00 11/07/24 12:00 11/07/24 12:00 11/07/24 12:00 11/07/24 12:11/06/24 12:00 Narrative Exam Constitutional: Disheveled, well-nourished, in no acute distress, lying in bed HEENT: NCAT, EOMI, reactive round pupils b/l, patent nares b/l, moist mucous membranes Lung: CTAB, scattered expiratory wheeze. In mid to lower zones bilaterally Heart: Regular S1S2, no murmurs, gallops, or rubs Abdomen: Soft, non-distended, non-tender, bowel sounds present throughout Extremities: No cyanosis, clubbing, or edema, LE pulses present b/l Neurologic: No focal sensory or motor deficits noted, AOx3, appropriate affect Skin: Warm, dry, no lesions or rashes noted Objective Labs 11/09/24 04:54 11/09/24 04:54 Labs: Laboratory Results - last 24 hr 11/07/24 04:31 WBC 5.8 RBC 3.63 L Hgb 11.4 L Hct 34.1 L MCV 94 MCH 31.4 MCHC 33.4 RDW Std Deviation 50.9 H Plt Count 171 D Neut % (Auto) 60 Lymph % (Auto) 27 [place] % (Auto) 9 Eos % (Auto) 3 Baso % (Auto) 1 Neut # (Auto) 3.5 Lymph # (Auto) 1.6 [place] # (Auto) 0.5 Eos # (Auto) 0.2 Baso # (Auto) 0.1 Immature Gran # (Auto) 0.01 H Absolute Nucleated RBC 0.00 Immature Gran % 0 Nucleated RBC % 0 Sodium 146 H Potassium 3.7 Chloride 110 H Carbon Dioxide 24.2 Anion Gap 12 BUN 67 H Creatinine 2.6 H Estim Creat Clear Calc 18.8 L eGFR 19 L BUN/Creatinine Ratio 26 H Glucose 79 D Calculated Osmolality 308 H Calcium 7.5 L Corrected Calcium 8.1 L Phosphorus 3.5 Magnesium 1.4 L Total Bilirubin < 0.2 L AST 29 ALT 55 H Alkaline Phosphatase 126 H Total Protein 5.7 Albumin 3.3 L Globulin 2.4 Albumin/Globulin Ratio 1.4 ABG Interpretation ABG results: 11/04/24 20:53 ABG pH 7.35 ABG pCO2 45 ABG pO2 225 H ABG HCO3 24 ABG O2 Saturation 100 H ABG Base Excess -1 Quality Measures Quality Measures VTE prophylaxis Advance care planning discussed with:: patient Assessment & Plan Assessment Current Active Medications: Generic Name Dose Route Start Last Admin Trade Name Freq PRN Reason Stop Dose Admin Acetaminophen 650 mg 11/04/24 22:45 11/05/24 16:29 Acetaminophen 325 Mg Tablet PO 12/04/24 22:44 650 mg Q6H PRN Administration PAIN SCALE 1-3 (mild Acetaminophen 650 mg 11/04/24 22:45 Acetaminophen 325 Mg Tablet PO 12/04/24 22:44 Q6H PRN Fever >100.4 Hydrocodone Bitart/Acetaminophen 1 tab 11/04/24 22:45 Hydrocodone/Apap 10/325 Tab PO 11/09/24 22:44 Q4HR PRN PAIN SCALE 7-10 (Severe Albuterol/Ipratropium 3 ml 11/04/24 23:00 11/07/24 10:01 Albuterol/Ipratropium (Duoneb) Rt Dee 3 Ml Nebu INH 12/04/24 22:59 3 ml Q4HRRT KENNEDY Administration Amlodipine Besylate 10 mg 11/04/24 23:10 11/07/24 10:25 Amlodipine Besylate 5 Mg Tablet PO 12/04/24 23:09 10 mg QDAY KENNEDY Administration Calcium Acetate 667 mg 11/07/24 12:00 Calcium Acetate 667 Mg Tablet PO 12/07/24 11:59 TIDWM KENNEDY Carvedilol 25 mg 11/07/24 17:30 Carvedilol 12.5 Mg Tablet PO 12/07/24 17:29 BIDWM KENNEDY Fluticasone Propionate 2 puff 11/07/24 09:45 11/07/24 10:02 Fluticasone 220 Mcg 12 Gm Inh INH 12/07/24 09:44 2 puff BID KENNEDY Administration Furosemide 40 mg 11/05/24 06:00 11/06/24 05:10 Furosemide Inj 10 Mg/Ml 4ml Vial IVP 12/05/24 05:59 40 mg BIDD KENNEDY Administration Heparin Sodium (Porcine) 5,000 unit 11/05/24 06:00 11/06/24 13:20 Heparin Sod Inj 5000 Unit/Ml Vial SC 11/19/24 05:59 5,000 unit Q8HR KENNEDY Administration Hydralazine HCl 10 mg 11/05/24 08:52 Hydralazine Inj 20 Mg/Ml Vial IV 12/05/24 08:49 Q3H PRN hypertension Azithromycin 250 mg/ Sodium 250 mls @ 250 mls/hr 11/05/24 21:00 11/05/24 21:44 Chloride IV 11/09/24 20:59 250 mls/hr QDAY@2100 KENNEDY Administration Lisinopril 20 mg 11/08/24 09:00 Lisinopril 2.5 Mg Tablet PO 12/08/24 08:59 QDAY KENNEDY Ondansetron HCl 4 mg 11/04/24 22:45 Ondansetron Inj 2 Mg/Ml Inj 2 Ml IV 12/04/24 22:44 Q6H PRN NAUSEA OR VOMITING Protocol Oxycodone/Acetaminophen 1 tab 11/04/24 22:45 Oxycodone/Apap 5/325 Tablet PO 11/09/24 22:44 Q6H PRN PAIN SCALE 4-6 (Moderate Pantoprazole Sodium 40 mg 11/05/24 09:00 11/07/24 10:34 Pantoprazole Inj 40 Mg Vial IVP 12/05/24 08:59 40 mg QDAY KENNEDY Administration Plan In summary: 69-year-old female PMHx of HFrEF 30-35% 06/2024, COPD, CKD 3B, HTN, polysubstance use disorder, s/p right mastectomy, presented with SOB, admitted for AHRF in setting of CHF > COPD exacerbation. Acute hypoxemic respiratory failure?resolved Chronic systolic congestive heart failure with reduced ejection fraction [30- 35%] COPD exacerbation, less likely Presenting with 1 week of difficulty breathing, and lower extremity swelling. Lack of medication adhesion i.e. lasix secondary to homelessness. CXR showed mild to moderate CHF. BNP >32,000. Lung exam showed bibasilar Rales but no wheezing. Had 2+ bilateral lower extremity pitting edema. Last echo in 06/2024 with EF 30-35%. ABG pH 7.35, CO2 45, O2 225, bicarb 24. Required 6 L NC on admission, currently on 2 L and satting in mid 90s. Presentation more consistent with CHF exacerbation over COPD exacerbation. However will treat for both. Plan: ? Strict input output charting ? 2 g sodium restricted diet ? Daily weights ? 1200 cc/day fluid restriction ? Continue LASIX 40 mg IV BID ? Continue AZITHROMYCIN daily (11/04- ? Continue DuoNebs q.4h scheduled ? Started on fluticasone inhaler 2 puffs twice daily Hypomagnesemia K3.7 and Mg 1.4. Repleted with KCl 40 mEq p.o. x 1 and magnesium sulfate 6 g IV x 1 Plan: ? KCl 40 mEq p.o. x 1 ? Magnesium sulfate 6 g IV x 1 Troponinemia type II, downtrending Elevated D-dimer Troponin 0.242, D-dimer 1100. EKG sinus rhythm without acute ST changes. Likely demand ischemia in settings of CHF exacerbation. Low suspicion for PE/DVT based on Wells criteria 0 and 1, respectively. Most likely type II in setting of CHF exacerbation CKD stage IV CR 2.6, GFR 19, both around baseline. On LASIX, nephrology was following for cardiorenal syndrome versus ATN versus prerenal azotemia. She was continued on LASIX at this time. Anticipate the same course. This time around. But will consider nephrology consult if renal function worsens or does not approve. Neck Plan: ? Renally dose meds, avoid overdiuresis and NEPHROTOXINS ? Daily CMP Transaminitis?improving Liver cirrhosis AST 78, ALT 99, ALP 155. Likely congestive hepatopathy in setting of CHF exacerbation. Previous imaging from 06/2024 showed hepatic cirrhosis, hepatitis and autoimmune panels were negative then. History of substance abuse including alcohol and METHAMPHETAMINE. Anticipate improvement with diuresis. ? Daily labs ? Pending ammonia level Acute normocytic anemia Hgb 11.3, baseline 13.7. No signs or symptoms of abnormal bleeding. Likely dilutional in settings of overload versus worsening CKD. ? Transfuse if Hgb less than 7 ? Daily labs HTN Previously discharged on AMLODIPINE 10 mg and LISINOPRIL 5 mg daily. Currently BP 162/95. Plan: ? Continue home AMLODIPINE 10 mg daily ? Increase lisinopril to 20 Mg p.o. daily from 5 Mg p.o. daily Polysubstance use disorder Previous tobacco smoker, current alcohol user, admits to METHAMPHETAMINE use. ? Recommended cessation Social determinant of health She has recurrent admission for CHF exacerbation and other comorbidity, likely related to medication indentation secondary to homelessness. May certainly benefit from long-term placement. ? Referral to social work. Left unilateral mastectomy As a result of unknown breast cancer. No indications for interventions at this time. Health maintenance: Disposition: IV diuresis. Patient has pending appeal Diet: Cardiac diet with 1200 cc of fluid restriction Lines: pIVs GI Prophylaxis: Pantoprazole Thrombo Prophylaxis: Heparin Code status: FULL CODE Plan of care discussed with Attending Dr. Grimaldo and PGY3 Dr. Malcolm Gomez MD PGY 1 Attending Provider Attestation/Addendum I attest that I was physically present for the evaluation, physical examination, lab and imaging review of the patient with the residents. I discussed the case with the residents and agree with the findings and plans of care as documented above. Devin Grimaldo MD
[2024-11-07] MEDS: CALCIUM ACETATE 667 MG TABLET PO ×2 (14:28→17:25)
[2024-11-07] MEDS: POTASSIUM CHLORIDE 10% 20 MEQ/15 ML UDC 40 MEQ PO (14:28)
[2024-11-07] MEDS: Lisinopril 2.5 MG TABLET 15 MG PO (14:29)
[2024-11-07] MEDS: AZITHROMYCIN INJ 500 MG in SODIUM CHLORIDE 0.9% 250 ML 250 ML 250 MG IV (17:22)
[2024-11-07] MEDS: carVEDILOL 12.5 MG TABLET 25 MG PO (17:23)
--- NOTE | 2024-11-07 18:50 | PC.NURSE ---
During Sbar with oncoming nurse I realized patient had heparin due at 1400 , this medication does not appear on my MAR, but it does show on oncoming nurses MAR, however it does show on my MAR shift engineer administration due but its also greyed out, called IT they said this was an issue for ACS or pharmacy, called and no answer.
--- NOTE | 2024-11-07 19:10 | PC.NURSE ---
Dr. Casper arrived on unit to follow up with patient.
[2024-11-07] MEDS: HEPARIN SOD INJ 5000 UNIT/ML VIAL SC (21:15)
[2024-11-07] MEDS: FUROSEMIDE INJ 10 MG/ML 4ML VIAL 40 MG IVP (22:03)
[2024-11-07 22:56] LABS: Vancomycin,Trough < 3.0 mcg/mL (5.0-10.0)
[2024-11-08] VITALS (19 sets, daily range): BP systolic 97–163; BP diastolic 59–96; PULSE 66–86; RESP 15–94; TEMP 36.1–37.2; O2SAT 85–100; BMI 25.4
[2024-11-08] MEDS: ALBUTEROL/IPRATROPIUM (Duoneb) RT SOL 3 ML NEBU INH ×2 (02:40→10:32)
[2024-11-08 05:27] LABS: Basophils # (Auto) 0.1 Thou/mm3 (0.0-0.2); Basophils % (Auto) 1 % (0-2.5); Eosinophils # (Auto) 0.3 Thou/mm3 (0.0-0.5); Eosinophils % (Auto) 5 % (0-10); Hematocrit 37.5 % (36.0-46.0); Hemoglobin 12.2 g/dL (12.0-16.0); Immature Granulocytes % (Auto) 0 % (0-0); Immature Granulocytes Auto 0.01 Thou/mm3 (0.00-0.00); Lymphocytes # (Auto) 1.2 Thou/mm3 (1.0-4.8); Lymphocytes % (Auto) 20 % (10-50); Mean Corpuscular HGB Conc 32.5 g/dl (31.0-37.0); Mean Corpuscular Hemoglobin 31.1 pg (25.0-35.0); Mean Corpuscular Volume 96 fL (80-100); Monocytes # (Auto) 0.6 Thou/mm3 (0.0-0.8); Monocytes % (Auto) 10 % (0-12); Neutrophils # (Auto) 3.7 Thou/mm3 (1.8-7.7); Neutrophils % (Auto) 63 % (37-80); Nucleated Red Blood Cell % 0 /100 WBC (0); Platelet Count 212 Thou/mm3 (140-440); RDW Standard Deviation 51.4 fL (36.4-46.3); Red Blood Count 3.92 Miln/mm3 (4.00-5.20); White Blood Count 5.9 Thou/mm3 (3.6-11.0)
[2024-11-08] MEDS: FUROSEMIDE INJ 10 MG/ML 4ML VIAL 40 MG IVP ×2 (05:31→17:43)
[2024-11-08] MEDS: HEPARIN SOD INJ 5000 UNIT/ML VIAL SC ×3 (05:33→21:53)
[2024-11-08 06:00] LABS: Alanine Aminotransferase 47 U/L (10-49); Albumin, Serum 3.4 gm/dL (3.4-4.8); Albumin/Globulin Ratio 1.4 (1.2-2.2); Alkaline Phosphatase 152 U/L (46-116); Anion Gap 11 (7-16); Aspartate Amino Transferase 26 U/L (0-34); BUN/Creatinine Ratio 24 Ratio (12-20); Bilirubin,Total 0.2 mg/dL (0.3-1.2); Blood Urea Nitrogen 60 mg/dL (9-23); Calcium 7.9 mg/dL (8.3-10.6); Calcium (Corrected) 8.4 mg/dL (8.5-10.1); Carbon Dioxide 26.5 mMol/L (20.0-31.0); Chloride 108 mMol/L (98-107); Creatinine (Component) 2.5 mg/dL (0.6-1.3); Estimated Creatinine Clearance 19.5 mL/min (>60); Globulin 2.4 gm/dL (2.3-3.5); Glucose 98 mg/dL (74-106); Magnesium 2.1 mg/dL (1.6-2.6); Osmolality,Calculated 305 (275-295); Phosphorous 2.3 mg/dL (2.4-5.1); Potassium 4.1 mMol/L (3.4-5.1); Sodium 145 mMol/L (136-145); Total Protein 5.8 gm/dL (5.7-8.2); eGFR 20 See Note
[2024-11-08] MEDS: PANTOPRAZOLE INJ 40 MG VIAL IVP (08:33)
[2024-11-08] MEDS: Lisinopril 2.5 MG TABLET 20 MG PO ×2 (08:34→11:58)
[2024-11-08] MEDS: amLODIPine BESYLATE 5 MG TABLET 10 MG PO (08:35)
[2024-11-08] MEDS: carVEDILOL 12.5 MG TABLET 25 MG PO ×2 (08:35→17:43)
[2024-11-08] MEDS: CALCIUM ACETATE 667 MG TABLET PO (08:36)
--- NOTE | 2024-11-08 08:40 | PC.CC ---
Addendum entered and electronically signed by Elizabeth Siegel joey 11/08/24 16:03: [employer] appeal outcome: agrees with termination of hospital services. Patient financial liability begins at 12pm 11/09. Original Note: [employer] appeal [id number] status is Physician Review Completed . Anticipate outcome to be available later today.
[2024-11-08] MEDS: NAPH,KPH MBDB 1 PACKET (1.5 GM) PO (11:58)
--- NOTE | 2024-11-08 12:07 | ESPR_ITS ---
<Statement entered by Zion Baig MD - 11/09/24 13:46> I discussed with and supervised the international manager physician involved in the care of this patient. Patient assessment and plan was discussed with entire medicine team, including my attending. I agree with the assessment and plan as documented by international manager doctor. Patient care was discussed with my attending physician Dr. Dillan Baig, PGY-2 Documentation for date of: 11/08/24 Subjective Subjective Interval history: Patient was seen and examined at bedside this AM. No acute exents overnight. Patient tolerating diet, adequate urine output and mentation is at baseline. Patient denies any chest pain, shortness of breath and wheezing Currently on IV diuresis with Lasix 40 Mg IV twice daily Fluid balance of +800 cc in past 24 hours Increased lisinopril to 40 Mg p.o. daily from 20 Mg p.o. daily K4.1 and Mg 2.1 Exam Vital Signs Temp Pulse Resp BP Pulse Ox O2 Del Method O2 Flow Rate 98.4 F 86 17 141/93 H 95 Room Air 2 11/08/24 11:51 11/08/24 11:58 11/08/24 11:51 11/08/24 11:58 11/08/24 11:51 11/08/24 11:51 11/07/24 16:00 Narrative Exam Constitutional: Disheveled, well-nourished, in no acute distress, lying in bed HEENT: NCAT, EOMI, reactive round pupils b/l, patent nares b/l, moist mucous membranes Lung: CTAB, lungs clear to auscultation bilaterally. Heart: Regular S1S2, no murmurs, gallops, or rubs Abdomen: Soft, non-distended, non-tender, bowel sounds present throughout Extremities: No cyanosis, clubbing, or edema, LE pulses present b/l Neurologic: No focal sensory or motor deficits noted, AOx3, appropriate affect Skin: Warm, dry, no lesions or rashes noted Objective Labs 11/09/24 04:54 11/09/24 04:54 Labs: Laboratory Results - last 24 hr 11/07/24 11/08/24 21:08 04:33 WBC 5.9 RBC 3.92 L Hgb 12.2 Hct 37.5 MCV 96 MCH 31.1 MCHC 32.5 RDW Std Deviation 51.4 H Plt Count 212 D Neut % (Auto) 63 Lymph % (Auto) 20 [place] % (Auto) 10 Eos % (Auto) 5 Baso % (Auto) 1 Neut # (Auto) 3.7 Lymph # (Auto) 1.2 [place] # (Auto) 0.6 Eos # (Auto) 0.3 Baso # (Auto) 0.1 Immature Gran # (Auto) 0.01 H Absolute Nucleated RBC 0.00 Immature Gran % 0 Nucleated RBC % 0 Sodium 145 Potassium 4.1 Chloride 108 H Carbon Dioxide 26.5 Anion Gap 11 BUN 60 H Creatinine 2.5 H Estim Creat Clear Calc 19.5 L eGFR 20 L BUN/Creatinine Ratio 24 H Glucose 98 Calculated Osmolality 305 H Calcium 7.9 L Corrected Calcium 8.4 L Phosphorus 2.3 L Magnesium 2.1 Total Bilirubin 0.2 L AST 26 ALT 47 Alkaline Phosphatase 152 H D Total Protein 5.8 Albumin 3.4 Globulin 2.4 Albumin/Globulin Ratio 1.4 Vancomycin Trough < 3.0 L ABG Interpretation ABG results: 11/04/24 20:53 ABG pH 7.35 ABG pCO2 45 ABG pO2 225 H ABG HCO3 24 ABG O2 Saturation 100 H ABG Base Excess -1 Quality Measures Quality Measures VTE prophylaxis Advance care planning discussed with:: patient Assessment & Plan Assessment Current Active Medications: Generic Name Dose Route Start Last Admin Trade Name Freq PRN Reason Stop Dose Admin Acetaminophen 650 mg 11/04/24 22:45 11/05/24 16:29 Acetaminophen 325 Mg Tablet PO 12/04/24 22:44 650 mg Q6H PRN Administration PAIN SCALE 1-3 (mild Acetaminophen 650 mg 11/04/24 22:45 Acetaminophen 325 Mg Tablet PO 12/04/24 22:44 Q6H PRN Fever >100.4 Hydrocodone Bitart/Acetaminophen 1 tab 11/04/24 22:45 Hydrocodone/Apap 10/325 Tab PO 11/09/24 22:44 Q4HR PRN PAIN SCALE 7-10 (Severe Albuterol/Ipratropium 3 ml 11/04/24 23:00 11/08/24 10:32 Albuterol/Ipratropium (Duoneb) Rt Dee 3 Ml Nebu INH 12/04/24 22:59 3 ml Q4HRRT KENNEDY Administration Amlodipine Besylate 10 mg 11/04/24 23:10 11/08/24 08:35 Amlodipine Besylate 5 Mg Tablet PO 12/04/24 23:09 10 mg QDAY KENNEDY Administration Azithromycin 250 mg 11/08/24 21:00 Azithromycin 250 Mg Tablet PO 11/09/24 20:59 HS KENN[facility] Calcium Carbonate 600 mg 11/08/24 21:00 Calcium Carbonate 600 Mg Tablet PO 12/08/24 20:59 BID [facility] Carvedilol 25 mg 11/07/24 17:30 11/08/24 08:35 Carvedilol 12.5 Mg Tablet PO 12/07/24 17:29 25 mg BIDWM KENNEDY Administration Fluticasone Propionate 2 puff 11/07/24 09:45 11/08/24 08:07 Fluticasone 220 Mcg 12 Gm Inh INH 12/07/24 09:44 Not Given BID [facility] Furosemide 40 mg 11/08/24 18:00 Furosemide Inj 10 Mg/Ml 4ml Vial IVP 12/05/24 05:59 BIDD [facility] Heparin Sodium (Porcine) 5,000 unit 11/08/24 14:00 Heparin Sod Inj 5000 Unit/Ml Vial SC 11/19/24 05:59 Q8HR [facility] Hydralazine HCl 10 mg 11/05/24 08:52 Hydralazine Inj 20 Mg/Ml Vial IV 12/05/24 08:49 Q3H PRN hypertension Lisinopril 40 mg 11/09/24 09:00 Lisinopril 20 Mg Tablet PO 12/09/24 08:59 QDAY [facility] Ondansetron HCl 4 mg 11/04/24 22:45 Ondansetron Inj 2 Mg/Ml Inj 2 Ml IV 12/04/24 22:44 Q6H PRN NAUSEA OR VOMITING Protocol Oxycodone/Acetaminophen 1 tab 11/04/24 22:45 Oxycodone/Apap 5/325 Tablet PO 11/09/24 22:44 Q6H PRN PAIN SCALE 4-6 (Moderate Pantoprazole Sodium 40 mg 11/05/24 09:00 11/08/24 08:33 Pantoprazole Inj 40 Mg Vial IVP 12/05/24 08:59 40 mg QDAY [facility] Administration Plan In summary: 69-year-old female PMHx of HFrEF 30-35% 06/2024, COPD, CKD 3B, HTN, polysubstance use disorder, s/p right mastectomy, presented with SOB, admitted for AHRF in setting of CHF > COPD exacerbation. Acute hypoxemic respiratory failure?resolved Chronic systolic congestive heart failure with reduced ejection fraction [30- 35%] COPD exacerbation, less likely Presenting with 1 week of difficulty breathing, and lower extremity swelling. Lack of medication adhesion i.e. lasix secondary to homelessness. CXR showed mild to moderate CHF. BNP >32,000. Lung exam showed bibasilar Rales but no wheezing. Had 2+ bilateral lower extremity pitting edema. Last echo in 06/2024 with EF 30-35%. ABG pH 7.35, CO2 45, O2 225, bicarb 24. Required 6 L NC on admission, currently on 2 L and satting in mid 90s. Presentation more consistent with CHF exacerbation over COPD exacerbation. However will treat for both. Plan: ? Strict input output charting ? 2 g sodium restricted diet ? Daily weights ? 1200 cc/day fluid restriction ? Continue LASIX 40 mg IV BID ? Continue AZITHROMYCIN daily (11/04- ? Continue DuoNebs q.4h scheduled ? Continue fluticasone inhaler 2 puffs twice daily Hypomagnesemia?resolved K4.2 and Mg 2.1. Troponinemia type II, downtrending Elevated D-dimer Troponin 0.242, D-dimer 1100. EKG sinus rhythm without acute ST changes. Likely demand ischemia in settings of CHF exacerbation. Low suspicion for PE/DVT based on Wells criteria 0 and 1, respectively. Most likely type II in setting of CHF exacerbation CKD stage IV CR 2.6, GFR 19, both around baseline. On LASIX, nephrology was following for cardiorenal syndrome versus ATN versus prerenal azotemia. She was continued on LASIX at this time. Anticipate the same course. This time around. But will consider nephrology consult if renal function worsens or does not approve. Neck Plan: ? Renally dose meds, avoid overdiuresis and NEPHROTOXINS ? Daily CMP Transaminitis?improving Liver cirrhosis AST 78, ALT 99, ALP 155. Likely congestive hepatopathy in setting of CHF exacerbation. Previous imaging from 06/2024 showed hepatic cirrhosis, hepatitis and autoimmune panels were negative then. History of substance abuse including alcohol and METHAMPHETAMINE. Anticipate improvement with diuresis. ? Daily labs Acute normocytic anemia Hgb 11.3, baseline 13.7. No signs or symptoms of abnormal bleeding. Likely dilutional in settings of overload versus worsening CKD. ? Transfuse if Hgb less than 7 ? Daily labs Primary HTN Previously discharged on AMLODIPINE 10 mg and LISINOPRIL 5 mg daily. Currently BP 156/89 Plan: ? Continue home AMLODIPINE 10 mg daily ? Increased lisinopril to 40 Mg p.o. daily from 20 Mg p.o. daily Polysubstance use disorder Previous tobacco smoker, current alcohol user, admits to METHAMPHETAMINE use. ? Recommended cessation Social determinant of health She has recurrent admission for CHF exacerbation and other comorbidity, likely related to medication indentation secondary to homelessness. May certainly benefit from long-term placement. ? Referral to social work. Left unilateral mastectomy As a result of unknown breast cancer. No indications for interventions at this time. Health maintenance: Disposition: IV diuresis. Patient has pending appeal Diet: Cardiac diet with 1200 cc of fluid restriction Lines: pIVs GI Prophylaxis: Pantoprazole Thrombo Prophylaxis: Heparin Code status: FULL CODE Plan of care discussed with Attending Dr. Grimaldo and PGY2 Dr. Safia Gomez MD PGY 1 Attending Provider Attestation/Addendum I attest that I was physically present for the evaluation, physical examination, lab and imaging review of the patient with the residents. I discussed the case with the residents and agree with the findings and plans of care as documented above. Devin Grimaldo MD
--- NOTE | 2024-11-08 16:20 | PC.SS ---
SS met with pt to inform her the [employer] Appeal outcome has returned, they agree with hospital pt is ready for d/c, and has until tomorrow 11-09-24 at 12pm to d/c. Pt is aware and is requesting a 4 wheel with seat, rollator walker. Pt states she has a 2 wheel walker which was provided during her last hospital admission. SS has called [facility] and confirmed with [place] walker was delivered to pt and she does not qualify for walker for 5 years. Pt is aware. Pt is aware to provide SS with her address to setup transportation. Pt is aware she could possibly be responsible for hospital bill after 12pm 11-09-24 if she is not d/c.
--- NOTE | 2024-11-08 16:34 | PC.NURSE ---
Dr. Gomez at bedside
[2024-11-08] MEDS: AZITHROMYCIN 250 MG TABLET PO (20:24)
[2024-11-08] MEDS: CALCIUM CARBONATE 600 MG TABLET PO (20:24)
[2024-11-08] MEDS: FLUTICASONE 220 MCG 2 PUFF INH (20:26)
[2024-11-09] VITALS (9 sets, daily range): BP systolic 145–186; BP diastolic 65–109; PULSE 62–71; RESP 15–20; TEMP 36.1–36.6; O2SAT 92–97; BMI 26.5
[2024-11-09] MEDS: FUROSEMIDE INJ 10 MG/ML 4ML VIAL 40 MG IVP (05:21)
[2024-11-09 05:25] LABS: Basophils % (Auto) 1 % (0-2.5); Eosinophils # (Auto) 0.4 Thou/mm3 (0.0-0.5); Eosinophils % (Auto) 7 % (0-10); Hematocrit 37.9 % (36.0-46.0); Hemoglobin 12.1 g/dL (12.0-16.0); Immature Granulocytes % (Auto) 1 % (0-0); Immature Granulocytes Auto 0.03 Thou/mm3 (0.00-0.00); Lymphocytes # (Auto) 1.4 Thou/mm3 (1.0-4.8); Lymphocytes % (Auto) 26 % (10-50); Mean Corpuscular HGB Conc 31.9 g/dl (31.0-37.0); Mean Corpuscular Hemoglobin 30.9 pg (25.0-35.0); Mean Corpuscular Volume 97 fL (80-100); Monocytes # (Auto) 0.6 Thou/mm3 (0.0-0.8); Monocytes % (Auto) 10 % (0-12); Neutrophils # (Auto) 3.1 Thou/mm3 (1.8-7.7); Neutrophils % (Auto) 57 % (37-80); Nucleated Red Blood Cell % 0 /100 WBC (0); Platelet Count 195 Thou/mm3 (140-440); RDW Standard Deviation 52.4 fL (36.4-46.3); Red Blood Count 3.92 Miln/mm3 (4.00-5.20); White Blood Count 5.5 Thou/mm3 (3.6-11.0)
[2024-11-09] MEDS: HEPARIN SOD INJ 5000 UNIT/ML VIAL SC (05:25)
[2024-11-09 06:04] LABS: Alanine Aminotransferase 21 U/L (10-49); Albumin, Serum 3.2 gm/dL (3.4-4.8); Albumin/Globulin Ratio 1.4 (1.2-2.2); Alkaline Phosphatase 126 U/L (46-116); Anion Gap 8 (7-16); Aspartate Amino Transferase 17 U/L (0-34); BUN/Creatinine Ratio 28 Ratio (12-20); Bilirubin,Total 0.2 mg/dL (0.3-1.2); Blood Urea Nitrogen 67 mg/dL (9-23); Calcium 8.1 mg/dL (8.3-10.6); Calcium (Corrected) 8.7 mg/dL (8.5-10.1); Carbon Dioxide 30.2 mMol/L (20.0-31.0); Chloride 107 mMol/L (98-107); Creatinine (Component) 2.4 mg/dL (0.6-1.3); Estimated Creatinine Clearance 20.3 mL/min (>60); Globulin 2.3 gm/dL (2.3-3.5); Glucose 83 mg/dL (74-106); Magnesium 1.6 mg/dL (1.6-2.6); Osmolality,Calculated 307 (275-295); Phosphorous 2.6 mg/dL (2.4-5.1); Potassium 4.3 mMol/L (3.4-5.1); Sodium 145 mMol/L (136-145); Total Protein 5.5 gm/dL (5.7-8.2); eGFR 21 See Note
--- NOTE | 2024-11-09 09:13 | PC.SS ---
Addendum entered by BRENNEN Herrera 11/09/24 11:56: Taxi voucher placed in patient's chart. Addendum entered by BRENNEN Herrera 11/09/24 11:48: SS update: no [employer] rides available. Patient's friend Jonh informs he is unable to vegetable picker the patient at this time. Notified equal opportunity director Thalia to reach out to taxi if available. Original Note: SS follow up: met with patient to notify of [employer] appeal outcome. Patient is aware she has to d/c before noon today. Patient informs she will d/c to her friend, Jonh's home. Jonh Address: [address] [place] [address]. Patient is requesting [employer] transport services. Notified bed side nurse to update commercial loan underwriter when the patient is ready to schedule [employer] ride for the patient.
[2024-11-09] MEDS: carVEDILOL 12.5 MG TABLET 25 MG PO (10:46)
[2024-11-09] MEDS: Lisinopril 20 MG TABLET 40 MG PO (10:46)
[2024-11-09] MEDS: amLODIPine BESYLATE 5 MG TABLET 10 MG PO (10:46)
[2024-11-09] MEDS: PANTOPRAZOLE INJ 40 MG VIAL IVP (10:47)
[2024-11-09] MEDS: CALCIUM CARBONATE 600 MG TABLET PO (10:47)
--- NOTE | 2024-11-09 11:16 | PC.NURSE ---
Spoke to Dr Baig regarding discharge order since 11/06/24, Dr Baig stated that patient can be discharged with this order, no need for a new discharge order today. Discharge was held because patient appealed.
--- NOTE | 2024-11-09 16:02 | ESDS_ITS ---
<Statement entered by Alisia Maharaj DO - 11/10/24 08:12> I, Alisia Maharaj DO, attest that I was physically present for the rubin portions of the service and evaluated the patient with the resident and I reviewed and discussed the case with the resident and agree with the resident's findings and plans of care as documented above Planned Discharge Date 11/09/24 DS: Providers Provider Date of admission: 11/04/24 22:45 Primary care physician: Hugo Thomas MD Admitting Provider: Raymundo Ho MD Attending Provider on Admission: Raymundo Ho MD Consults: 11/05/24 12:09 Referral Physical Therapy Routine Comment: Physician Instructions: Attending Provider on DC: Zion Baig MD Discharging Provider: Zion Baig MD DS: Diagnosis Problem List Completed Was Problem List Reviewed/Reconciled?: Yes Hospital Course Hospital Course Hospital course: 69-year-old female patient with significant medical history for HFrEF (30 to 35%), COPD, CKD stage IV, hypertension, breast cancer SP right mastectomy and polysubstance use disorder who was admitted on 11/04/2024 for acute hypoxic respiratory failure in setting of CHF exacerbation complicated by COPD. Repeated echocardiogram indicated left ventricle ejection fraction of 45 to 50% with mild to moderate mitral regurgitation. X-ray indicated mild to moderate CHF. Patient was treated with diuretics, azithromycin and DuoNebs. Patient's symptom improved over time, was breathing comfortably on room air and was cleared to be discharged on carvedilol and Lasix. #Acute respiratory failure #CHF exacerbation #COPD #NSTEMI type II #Primary hypertension #H/x of breast cancer s/p mastectomy Discharge plan: ? We have decreased your dose of Coreg to 12.5 Mg p.o. twice daily. Please take 1 tablet twice a day. ? We have increased your dose of Lasix, water pill to 40 Mg p.o. daily. Please take 1 tablet once a day. ? We have put on hold on your prednisone dose. Please follow-up with his PCP before restarting. ? Please continue the rest of your home medication as before. - Follow up with your primary care physician within 1 week of discharge. If you do not have a primary care physician, please follow up with the [facility] Residents clinic ([phone]) ? If you experience any new, worsening or persistent symptoms either call your primary doctor, or dial 911 or present to the emergency department. Discharge summary was reviewed with my attending Dr. Carol Ann Baig, PGY-2 Status at Discharge Overall status at discharge: patient is progressing back to baseline Time Spent with Patient Time attestation: Total time spent providing and/or coordinating discharge services: Time spent: Greater than 30 minutes Exam Vital Signs Temp Pulse Resp BP Pulse Ox O2 Del Method O2 Flow Rate 97.8 F 70 20 156/89 H 92 L Room Air 2 11/09/24 11:13 11/09/24 12:00 11/09/24 11:13 11/09/24 11:13 11/09/24 11:13 11/09/24 11:13 11/07/24 16:00 Narrative Exam Constitutional: well-developed, well-nourished, in no acute distress, lying in bed HEENT: NCAT, EOMI, reactive round pupils b/l, patent nares b/l, moist mucous membranes Lung: CTAB, no wheezing, no rhonchi Heart: Regular S1S2, no murmurs, gallops, or rubs Abdomen: Soft, non-distended, non-tender, bowel sounds present throughout Extremities: No cyanosis, clubbing, or edema, LE pulses present b/l Neurologic: No focal sensory or motor deficits noted, AOx3, appropriate affect Skin: Warm, dry, no lesions or rashes noted Discharge Plan Plan Patient Disposition: HOME (Self Care) Care Plan Goals: ? We have decreased your dose of Coreg to 12.5 Mg p.o. twice daily. Please take 1 tablet twice a day. ? We have increased your dose of Lasix, water pill to 40 Mg p.o. daily. Please take 1 tablet once a day. ? We have put on hold on your prednisone dose. Please follow-up with his PCP before restarting. ? Please continue the rest of your home medication as before. - Follow up with your primary care physician within 1 week of discharge. If you do not have a primary care physician, please follow up with the [facility] Residents clinic ([phone]) ? If you experience any new, worsening or persistent symptoms either call your primary doctor, or dial 911 or present to the emergency department. Prescriptions/Referrals Prescriptions/Med Rec: New carvedilol 12.5 mg Tablet 12.5 mg PO BIDWM 30 Days Qty: 60 2RF furosemide [Lasix] 40 mg tablet 40 mg PO QDAY Qty: 30 2RF Continued bupropion HCl 150 mg Tablet Sustained-Release 12 Hr 150 mg PO BID tolterodine 4 mg Capsule,Extended Release 24hr 4 mg PO QDAY amlodipine 10 mg tablet 10 mg PO QDAY Qty: 30 1RF Trelegy Ellipta 200-62.5-25 mcg blister with device 2 inh inhalation BID Qty: 60 0RF lisinopril 5 mg tablet 5 mg PO QDAY Qty: 30 0RF Held prednisone 50 mg tablet 50 mg PO QDAY Qty: 4 0RF Hold Instructions: Resume on 11/25/24. Until seeing primary care doctor Discontinued carvedilol 25 mg tablet 25 mg PO BID 30 Days Qty: 60 0RF Rx Instructions: must administer with a meal/food furosemide 20 mg tablet 20 mg PO Q OTHER DAY Qty: 60 0RF Referrals: Hugo Thomas MD [Primary Care Provider] - Patient/Caregiver Discharge Instructions Education Materials: Asthma and COPD, Addiction Recovery Counseling, Coping with Heart Failure Print Language: Citizen Of [place] Stand Alone Forms: Fern Award Info., Patient Portal Info Letter Discharge Order Discharge Orders: Discharge (Routine); Ordered 11/06/24 Ordered By: Joshua Gomez Quality Discharge Quality Measures VTE prophylaxis
== END 2024-11-09 13:10 | disposition home or self-care (01) | DRG 291 ==
LOC: SERX 23:45 → SERHOLD 11-05 00:21 → S3EX 11-05 10:50 → S3SX 11-05 18:24
PROVIDERS: Admitting Provider Internal Medicine; Emergency Provider Emergency Medicine; PCP Family Medicine; Visit Provider Internal Medicine
DX: I13.0 Hypertensive heart and chronic kidney disease with heart failure and stage 1 through stage 4 chronic kidney disease, or unspecified chronic kidney disease (principal); J96.01 Acute respiratory failure with hypoxia; J44.1 Chronic obstructive pulmonary disease with (acute) exacerbation; N17.9 Acute kidney failure, unspecified; N18.4 Chronic kidney disease, stage 4 (severe); I50.22 Chronic systolic (congestive) heart failure; Z59.00 Homelessness unspecified; K74.60 Unspecified cirrhosis of liver; E83.42 Hypomagnesemia; D63.1 Anemia in chronic kidney disease; I34.0 Nonrheumatic mitral (valve) insufficiency; F17.200 Nicotine dependence, unspecified, uncomplicated; F15.10 Other stimulant abuse, uncomplicated; Z90.13 Acquired absence of bilateral breasts and nipples; Z85.3 Personal history of malignant neoplasm of breast; Z79.899 Other long term (current) drug therapy
CPT/HCPCS: 36415; 36600; 71045; 80053; 80202; 80307; 81001; 82140; 82803; 83735; 83880; 84100; 84484; 85025; 85379; 85610; 85730; 87400; 87634; 87811; 93005; 93306; 94640; 94664; 94667; 96365; 96366; 96372; 96375; 96376; 97161; 99285; A9270; J0360; J0456; J1643; J1940; J2270; J2470; J2919; J3475; J7050

== ENCOUNTER 2024-11-29 16:50 | Emergency (ER) | payer MEDICARE, SELFPAY ==
--- NOTE | 2024-11-29 16:53 | XR_ITS ---
Examination: PA chest single view Technique: AP chest single view Exam date and time: November 2023 1700 hrs. Comparison November 04, 2024 Indications: Shortness of constipation 5 days. Findings: Normal appearing cardiac contour Moderate vascular congestion Right breast implant Right axillary surgical clips No lobar pneumonia Prominent osteopenia Impression: Moderate vascular congestion
[2024-11-29 17:13] VITALS: BP 208/152; BP 215/156; PULSE 89; RESP 19; TEMP 36.7; O2SAT 98; BMI 24.9
--- NOTE | 2024-11-29 17:17 | EKG_ITS ---
[facility] Test Date: 2024-11-29 Pat Name: CHEMA DIAZ Department: Room: - Gender: Female Phone Circuit Operator: : [id number] Requested By: Mode Chan Order Number: [id number] Reading MD: Mode Chan Measurements Intervals Rock Rate: 89 P: 47 HI: 151 QRS: -32 QRSD: 96 T: 112 QT: 378 QTc: 462 Interpretive Statements SINUS RHYTHM POSSIBLE LEFT ATRIAL ENLARGEMENT [-0.1mV P-WAVE IN V1/V2] LEFT AXIS DEVIATION [QRS AXIS < -30] LEFT VENTRICULAR HYPERTROPHY AND ST-T CHANGE [VOLTAGE CRITERIA PLUS ST/T ABNORMALITY] Compared to ECG 11/04/2024 20:18:14 Left-axis deviation now present ST (T wave) deviation still present /store/S0/[id number]/[id number].pdf
--- NOTE | 2024-11-29 17:18 | PD.EDRME ---
Rapid Medical Screening Exam RME Arrival date/time: 11/29/24 16:50 69-year-old female with a history of hypertension, COPD, CHF presents to the emergency room with a chief complaint of not having a bowel movement within the last 5 days. I have greeted and performed a focused initial assessment of this patient. A comprehensive ED assessment and evaluation of the patient, analysis of all test results, and completion of the medical decision making process will be conducted by additional ED providers. Chief Complaint: Abdominal Pain Vital signs: Vital Signs Temperature 98.1 F 11/29/24 17:13 Pulse Rate 89 11/29/24 17:13 Respiratory Rate 19 11/29/24 17:13 Blood Pressure 215/156 H 11/29/24 17:13 Pulse Oximetry (%) 98 11/29/24 17:13 Oxygen Delivery Method Room Air 11/29/24 17:13 Vital signs reviewed by provider: Yes
--- NOTE | 2024-11-29 17:19 | XR_ITS ---
EXAMINATION: XR abdomen 1V ORDERING PROVIDER: JANNET Fink HISTORY: constipation TECHNIQUE: 2 radiographs of the KUB were obtained. COMPARISON: 10/10/2023, KUB. FINDINGS: Nonobstructive bowel gas pattern. Moderate colonic stool burden. No abnormal calcifications. No pneumoperitoneum. Moderate degenerative changes lower lumbar spine. Moderate right mild left hip joint degenerative changes. Mild vasculopathic changes. IMPRESSION: Nonobstructive bowel gas pattern Moderate colonic stool burden.
[2024-11-29 17:47] VITALS: BP 215/156; PULSE 89
[2024-11-29] MEDS: cloNIDine HCL 0.1 MG TABLET 0.2 MG PO ×2 (17:47→20:04)
[2024-11-29 18:03] LABS: Basophils # (Auto) 0.1 Thou/mm3 (0.0-0.2); Basophils % (Auto) 1 % (0-2.5); Eosinophils # (Auto) 0.1 Thou/mm3 (0.0-0.5); Eosinophils % (Auto) 1 % (0-10); Hematocrit 45.3 % (36.0-46.0); Hemoglobin 15.3 g/dL (12.0-16.0); Immature Granulocytes % (Auto) 0 % (0-0); Immature Granulocytes Auto 0.02 Thou/mm3 (0.00-0.00); Lymphocytes # (Auto) 1.6 Thou/mm3 (1.0-4.8); Lymphocytes % (Auto) 19 % (10-50); Mean Corpuscular HGB Conc 33.8 g/dl (31.0-37.0); Mean Corpuscular Volume 92 fL (80-100); Monocytes # (Auto) 0.8 Thou/mm3 (0.0-0.8); Monocytes % (Auto) 9 % (0-12); Neutrophils # (Auto) 5.8 Thou/mm3 (1.8-7.7); Neutrophils % (Auto) 70 % (37-80); Nucleated Red Blood Cell % 0 /100 WBC (0); Platelet Count 273 Thou/mm3 (140-440); RDW Standard Deviation 50.1 fL (36.4-46.3); Red Blood Count 4.93 Miln/mm3 (4.00-5.20); White Blood Count 8.3 Thou/mm3 (3.6-11.0)
[2024-11-29 18:31] LABS: B-Type Natriuretic Peptide > 3280 pg/mL (0-100)
[2024-11-29 18:41] LABS: Alanine Aminotransferase 10 U/L (10-49); Albumin, Serum 4.1 gm/dL (3.4-4.8); Albumin/Globulin Ratio 1.4 (1.2-2.2); Alkaline Phosphatase 112 U/L (46-116); Anion Gap 9 (7-16); Aspartate Amino Transferase 17 U/L (0-34); BUN/Creatinine Ratio 18 Ratio (12-20); Bilirubin,Total 0.5 mg/dL (0.3-1.2); Blood Urea Nitrogen 46 mg/dL (9-23); Carbon Dioxide 23.4 mMol/L (20.0-31.0); Chloride 106 mMol/L (98-107); Creatinine (Component) 2.6 mg/dL (0.6-1.3); Estimated Creatinine Clearance 18.5 mL/min (>60); Globulin 2.9 gm/dL (2.3-3.5); Glucose 138 mg/dL (74-106); Osmolality,Calculated 289 (275-295); Potassium 3.7 mMol/L (3.4-5.1); Sodium 138 mMol/L (136-145); eGFR 19 See Note
[2024-11-29 18:46] LABS: Troponin I 0.084 ng/mL (0.0-0.045)
--- NOTE | 2024-11-29 18:47 | PC.NURSE ---
Call from Jazmin in lab w/ a critical trop level of 0.084. Temo STRINGER in RME informed. He said to inform Anahy RN, charge nurse. Anahy informed.
[2024-11-29 19:54] VITALS: BP 190/135; PULSE 72; RESP 19; TEMP 36.6; O2SAT 98
--- NOTE | 2024-11-29 19:54 | PD.EDADULT ---
ED General RME/HPI General Chief complaint: Abdominal Pain Stated complaint: CONSTIPATED FOR 4-5 DAYS, STOMACH HURTS Time Seen by Provider: 11/29/24 19:46 Arrival date/time: 11/29/24 16:50 CC: Patient presents to the ER with a chief complaint of right lower quadrant abdominal pain and no bowel movement for the past 5 days. Patient also admits that she has been not taking her antihypertensive medication. The patient is known to me for polysubstance abuse. Partner at the bedside states although she states she is out of medicines he knows that all these medicines are available to her for hypertension. Patient currently has no specific complaints other than no bowel movement in 5 days. RME / HPI RME / HPI narrative: 11/29/24 16:50 69-year-old female with a history of hypertension, COPD, CHF presents to the emergency room with a chief complaint of not having a bowel movement within the last 5 days. I have greeted and performed a focused initial assessment of this patient. A comprehensive ED assessment and evaluation of the patient, analysis of all test results, and completion of the medical decision making process will be conducted by additional ED providers. Related Data Home Medications ?Medication ?Instructions ?Recorded ?Confirmed bupropion HCl 150 mg tablet,12 hr 150 mg PO BID 10/19/23 10/19/23 sustained-release tolterodine 4 mg capsule,extended 4 mg PO QDAY 10/19/23 10/19/23 release 24 hr Previous Rx's ?Medication ?Instructions ?Recorded amlodipine 10 mg tablet 10 mg PO QDAY #30 tabs 07/14/24 prednisone 50 mg tablet 50 mg PO QDAY #4 tabs 10/13/24 Held on 11/06/24. Instructions: Resume on 11/25/24. Until seeing primary care doctor fluticasone fur. 200 mcg-umeclid 2 inh inhalation BID #60 ea 10/26/24 62.5 mcg-vilant 25 mcg inhalat.powder (Trelegy Ellipta) lisinopril 5 mg tablet 5 mg PO QDAY CHF/hypertension #30 10/27/24 tabs carvedilol 12.5 mg tablet 12.5 mg PO BIDWM 30 days #60 tabs 11/06/24 furosemide 40 mg tablet (Lasix) 40 mg PO QDAY #30 tabs 11/06/24 lisinopril 5 mg tablet 5 mg PO QDAY #30 tabs 11/29/24 polyethylene glycol 3350 17 4 g PO QDAY #119 grams 11/29/24 gram/dose oral powder (Miralax) Allergies Allergy/AdvReac Type Severity Reaction Status Date / Time iodine Allergy Severe Rash Verified 11/29/24 16:54 Review of Systems Review of Systems Narrative Review of Systems: GEN: No fever, no chills, no weight loss EYES: No discharge, no visual changes, no pain HEENT: No ear pain, no congestion, no sore throat PULM: No shortness of breath, no cough, no congestion CV: No chest pain, no dyspnea on exertion, no palpitations GI: No nausea, no vomiting, no diarrhea, + pain, no constipation : No frequency, no urgency, no dysuria MUSC/SKEL: No joint pain, no back pain SKIN: No rash PSYCH: No hallucinations, no depression HEME/LYMPH: No easy bleeding or bruising tendencies NEURO: No weakness, no headache ED Exam Narrative Physical exam: [General: Not in any acute distress Head normocephalic HEENT: Within acceptable limits Neck is supple nontender Chest equal chest rise nontender to palpation asymmetrical chest secondary to a breast implant in the right breast with mastectomy on the left side. Respiratory: Clear to auscultation no wheezes crackles or rubs CV: Rate rhythm is regular no murmurs rubs or clicks Abdomen is soft nontender no masses positive bowel sounds all 4 quadrants Back: No CVA tenderness no spinous process tenderness from cervical spine thoracic and lumbar spine Skin: Intact no petechiae rash induration ulceration or crepitus Extremities: Moving all extremity against resistance cap refill less than 2 seconds neurosensory intact Neuro: Awake alert oriented x3 Glascow coma 15 no focal deficits] Course Quality Measures none Orders Category Date Time Status EKG (ED ONLY) *Do not use* NOW Care 11/29/24 17:17 Completed EKG (ED Only) Stat Exams 11/29/24 17:17 Draft XR abdomen 1V Stat Exams 11/29/24 17:19 Completed XR chest 1V Stat Exams 11/29/24 16:53 Completed B-Type Natriuretic Peptide Stat Lab 11/29/24 15:50 Completed CBC Stat Lab 11/29/24 15:50 Completed Comprehensive Metabolic Panel Stat Lab 11/29/24 15:50 Completed Troponin I Stat Lab 11/29/24 15:50 Completed cloNIDine HCL [Catapres] Med 11/29/24 17:17 Discontinued 0.2 mg PO X1 ONE cloNIDine HCL [Catapres] Med 11/29/24 19:53 Once 0.2 mg PO X1 ONE hydrALAZINE HCL [Apresoline] Med 11/29/24 19:53 Once 25 mg PO X1 ONE Vital Signs Vital signs: Vital Signs Temperature 98.1 F 11/29/24 17:13 Pulse Rate 89 11/29/24 17:13 Respiratory Rate 19 11/29/24 17:13 Blood Pressure 215/156 H 11/29/24 17:13 Pulse Oximetry (%) 98 11/29/24 17:13 Oxygen Delivery Method Room Air 11/29/24 17:13 [facility] Patient data External records reviewed:: [facility] previous records Clinical information provided by:: patient Social determinants that could affect healthcare access:: none Patient has the following chronic illnesses:: Hypertension polysubstance abuse How is presenting disease/condition affected by chronic disease/condition?: uneffected by Evaluation data The following diagnostics were reviewed and interpreted by me:: lab results, radiology exam(s) and EKG tracing(s) Lab and/or radiology exams considered but not ordered:: CBC shows no acute leukocytosis anemia thrombocytopenia CMP shows BUN of 46 creatinine of 2.6. This is commensurate with prior lab draws. Glucose at 138. No transaminitis or T. bili elevation Troponin is 0.084 this is lower than her typical elevated troponin in the past. BMP shows greater than 30-80. This is unchanged from previous lab draws. Abdominal x-ray shows moderate amount of colonic stool. Interpretation Summary: Patient is constipated hypertension secondary to medication noncompliance patient will be restarted on her medications per her partner, we will give her mild antihypertensives here as well as discharge her with laxatives. Medications Medications considered but not ordered:: None Medication administrations:: Medication Administration History Clonidine (Clonidine Hcl 0.1 Mg Tablet) 0.2 mg PO X1 ONE Stop: 11/29/24 19:54 Hydralazine HCl (Hydralazine Hcl 25 Mg Tablet) 25 mg PO X1 ONE Stop: 11/29/24 19:54 Discontinued Medications Clonidine (Clonidine Hcl 0.1 Mg Tablet) 0.2 mg PO X1 ONE Stop: 11/29/24 17:18 Last Admin: 11/29/24 17:47 Dose: 0.2 mg Documented By: DEIDRE None Consultations Consultation(s) initiated? (list below): No Diagnosis Differential Diagnosis ED Complaint MDM: Constipation obstipation ileus Most likely diagnosis given after review of the tests above:: Hypertensive urgency secondary to medication noncompliance constipation Admission Indicated Admission indicated?: not indicated Explain why admission is indicated or not indicated:: Stable for discharge Admission Request Was there a request for admission?: No Disposition Plan Disposition Plan: Discharge Discharge Attestation Discharge Attestation: The patient and all family members were given an opportunity to ask questions and understood the discharge instructions. Discharge instructions specifically effects, indications for sooner follow up or return to the emergency department, and the expected course of current diagnosis. Patient condition: Stable Medical Decision Making Differential Diagnosis Differential Diagnosis: Constipation obstipation ileus Lab Data 11/29/24 15:50 11/29/24 15:50 Labs: Lab Results 11/29/24 Range/Units 15:50 WBC 8.3 (3.6-11.0) Thou/mm3 RBC 4.93 (4.00-5.20) Miln/mm3 Hgb 15.3 (12.0-16.0) g/dL Hct 45.3 (36.0-46.0) % MCV 92 (80-100) fL MCH 31.0 (25.0-35.0) pg MCHC 33.8 (31.0-37.0) g/dl RDW Std Deviation 50.1 H (36.4-46.3) fL Plt Count 273 D (140-440) Thou/mm3 Neut % (Auto) 70 (37-80) % Lymph % (Auto) 19 (10-50) % Ferry % (Auto) 9 (0-12) % Eos % (Auto) 1 (0-10) % Baso % (Auto) 1 (0-2.5) % Neut # (Auto) 5.8 (1.8-7.7) Thou/mm3 Lymph # (Auto) 1.6 (1.0-4.8) Thou/mm3 Ferry # (Auto) 0.8 (0.0-0.8) Thou/mm3 Eos # (Auto) 0.1 (0.0-0.5) Thou/mm3 Baso # (Auto) 0.1 (0.0-0.2) Thou/mm3 Immature Gran # (Auto) 0.02 H (0.00-0.00) Thou/mm3 Absolute Nucleated RBC 0.00 (0.00-0.00) Thou/mm3 Immature Gran % 0 (0-0) % Nucleated RBC % 0 (0) /100 WBC Sodium 138 (136-145) mMol/L Potassium 3.7 (3.4-5.1) mMol/L Chloride 106 (98-107) mMol/L Carbon Dioxide 23.4 (20.0-31.0) mMol/L Anion Gap 9 (7-16) BUN 46 H (9-23) mg/dL Creatinine 2.6 H (0.6-1.3) mg/dL Estim Creat Clear Calc 18.5 L (>60) mL/min eGFR 19 L (60 - ) See Note BUN/Creatinine Ratio 18 (12-20) Ratio Glucose 138 H (74-106) mg/dL Calculated Osmolality 289 (275-295) Calcium 9.0 (8.3-10.6) mg/dL Corrected Calcium 9.0 (8.5-10.1) mg/dL Total Bilirubin 0.5 (0.3-1.2) mg/dL AST 17 (0-34) U/L ALT 10 (10-49) U/L Alkaline Phosphatase 112 (46-116) U/L Troponin I 0.084 H* (0.0-0.045) ng/mL B-Natriuretic Peptide > 3280 H* (0-100) pg/mL Total Protein 7.0 (5.7-8.2) gm/dL Albumin 4.1 (3.4-4.8) gm/dL Globulin 2.9 (2.3-3.5) gm/dL Albumin/Globulin Ratio 1.4 (1.2-2.2) Discharge Plan Plan Patient Disposition: HOME (Self Care) Patient condition on transfer: Stable Prescriptions/Referrals Prescriptions/Med Rec: New lisinopril 5 mg tablet 5 mg PO QDAY Qty: 30 0RF polyethylene glycol 3350 [Miralax] 17 gram/dose powder 4 g PO QDAY Qty: 119 0RF No Action bupropion HCl 150 mg Tablet Sustained-Release 12 Hr 150 mg PO BID tolterodine 4 mg Capsule,Extended Release 24hr 4 mg PO QDAY amlodipine 10 mg tablet 10 mg PO QDAY Qty: 30 1RF prednisone 50 mg tablet 50 mg PO QDAY Qty: 4 0RF Trelegy Ellipta 200-62.5-25 mcg blister with device 2 inh inhalation BID Qty: 60 0RF lisinopril 5 mg tablet 5 mg PO QDAY Qty: 30 0RF carvedilol 12.5 mg Tablet 12.5 mg PO BIDWM 30 Days Qty: 60 2RF furosemide [Lasix] 40 mg tablet 40 mg PO QDAY Qty: 30 2RF Referrals: No Primary/Family,Physician [Primary Care Provider] - In 1 week Problem List Clinical Impression: Hypertension, Constipation Patient/Caregiver Discharge Instructions Education Materials: Controlling High Blood Pressure, ED Constipation (Adult) Print Language: Pashto Stand Alone Forms: Fern Award Info., Patient Portal Info Letter PA/[employer]OTHER[employer] POWER[employer]ANT MECHANIC HELPER Supervising Physician PA/[employer]OTHER[employer] POWERPLANT MECHANIC HELPER Supervising Physician: Kris Barriga ENP
[2024-11-29 20:04] VITALS: BP 190/135; PULSE 72
[2024-11-29] MEDS: hydrALAZINE HCL 25 MG TABLET PO (20:04)
--- NOTE | 2024-11-29 21:26 | PC.NURSE ---
NO ANSWER AT ER LOBBY OR OUTSIDE ER TO BE RE EVALUATED.
--- NOTE | 2024-11-29 21:27 | PC.NURSE ---
NO ANSWER AT ER LOBBY OR OUTSIDE FOR RE EVALUTION.
== END 2024-11-29 21:28 | disposition left against medical advice (07) ==
PROVIDERS: Nurse Practitioner Family; Emergency Provider Emergency Medicine
DX: K59.00 Constipation, unspecified (principal); I11.0 Hypertensive heart disease with heart failure; I50.9 Heart failure, unspecified; J44.9 Chronic obstructive pulmonary disease, unspecified; Z53.29 Procedure and treatment not carried out because of patient's decision for other reasons
CPT/HCPCS: 36415; 71045; 74018; 80053; 83880; 84484; 85025; 93005; 99283; A9270

== ENCOUNTER 2025-01-18 08:13 | Inpatient (IN) | payer MEDICARE, SELFPAY ==
[2025-01-18] VITALS (21 sets, daily range): BP systolic 156–225; BP diastolic 80–142; PULSE 80–95; RESP 13–94; TEMP 36.4–36.9; O2SAT 94–100; BMI 24.0; BMI 26.2
--- NOTE | 2025-01-18 08:37 | PD.EDNV ---
Nausea/Vomit./Diarrhea-RME/HPI General Chief complaint: Nausea/Vomiting/Diarrhea Stated complaint: SOB Time Seen by Provider: 01/18/25 08:48 Arrival date/time: 01/18/25 08:13 RME / HPI RME / HPI Narrative: 69 year old female with history of CHF, COPD, on 2L nasal cannula O2 at night, active tobacco smoker presents to the ED BIBA from home for evaluation of nausea, vomiting, and diarrhea (brown and nonbloody) beginning last night. Accompanied by diffuse abdominal cramping pain and feeling short of breath this morning. Per medics, on scene patient was dry heaving and given 4mg po Zofran with improvement. Additionally reported on room air patient was saturating 90-92% and 99% on 6L nasal cannula. Medics additionally reported patient has remained hypertensive, initially 238/130's and repeat blood pressure 202/140. No other complaints reported while in the ED. Related Data Home Medications ?Medication ?Instructions ?Recorded ?Confirmed bupropion HCl 150 mg tablet,12 hr 150 mg PO BID 10/19/23 10/19/23 sustained-release tolterodine 4 mg capsule,extended 4 mg PO QDAY 10/19/23 10/19/23 release 24 hr Previous Rx's ?Medication ?Instructions ?Recorded amlodipine 10 mg tablet 10 mg PO QDAY #30 tabs 07/14/24 prednisone 50 mg tablet 50 mg PO QDAY #4 tabs 10/13/24 Held on 11/06/24. Instructions: Resume on 11/25/24. Until seeing primary care doctor fluticasone fur. 200 mcg-umeclid 2 inh inhalation BID #60 ea 10/26/24 62.5 mcg-vilant 25 mcg inhalat.powder (Trelegy Ellipta) lisinopril 5 mg tablet 5 mg PO QDAY CHF/hypertension #30 10/27/24 tabs carvedilol 12.5 mg tablet 12.5 mg PO BIDWM 30 days #60 tabs 11/06/24 furosemide 40 mg tablet (Lasix) 40 mg PO QDAY #30 tabs 11/06/24 lisinopril 5 mg tablet 5 mg PO QDAY #30 tabs 11/29/24 polyethylene glycol 3350 17 4 g PO QDAY #119 grams 11/29/24 gram/dose oral powder (Miralax) Allergies Allergy/AdvReac Type Severity Reaction Status Date / Time iodine Allergy Severe Rash Verified 11/29/24 16:54 Review of Systems Review of Systems Narrative Review of Systems: Constitutional: DENIES; Fevers Eyes: DENIES; Loss of vision Head/Ear/Nose: DENIES; Loss of hearing Throat: DENIES; Dysphagia Cardiovascular: DENIES; Chest pain, dyspnea or syncope Respiratory: SEE HPI+ Shortness of breath Gastrointestinal: SEE HPI +n/v/d, pain DENIES; Rectal bleeding or melena. Genitourinary: DENIES; Dysuria (painful or difficult urination) Musculoskeletal: DENIES; Arthralgia (pain in a joint),; Skin: DENIES; Rash Neurological: DENIES; Loss of function or movement Psychiatric: DENIES; recent major life stressor, emotional problem, illicit drug use or abuse Endocrinology: DENIES; Weight change Hematologic/Lymphatic: DENIES; Abnormal bruising Allergic/Immunologic: DENIES; Urticaria (hives) Past Medical History Past Medical History CARDIAC: Positive Cardiac Disorders, Congestive Heart Failure and Hypertension RESPIRATORY: Positive Chronic Obstructive Pulmonary Disease (COPD) and Bronchitis GASTROINTESTINAL: Positive Gastrointestinal Disorders, Gastrointestinal Bleed and Ulcer GENITOURINARY: Positive Genitourinary Disorders REPRODUCTIVE: Positive Breast Cancer and Previous Pregnancies MUSCULOSKELETAL: Positive Musculoskeletal Disorders and Arthritis HEMATOLOGIC: Positive Blood Disorders and Anemia PSYCHO/SOCIAL: Positive Recreational Drug Use, Depression, Anxiety and Post Traumatic Stress Disorder OTHER HISTORY: Positive Cosmetic Surgery (breast cancer surgery cosmetic. ), Falls, Blood Transfusions, Chicken Pox and Breast Cancer Family History FAMILY HISTORY: Positive Family Gastrointestinal Problems and Family Cancer Surgical History SURGICAL: Positive Mastectomy and Section Social History SMOKING STATUS: Light (< 1 pack/day) SECOND HAND EXPOSURE: No ED Exam Narrative Physical exam: Physical Exam: General: The vital signs were reviewed. Blood pressure is quite high in the ambulance bay with systolics in the 220-240 range on the last 2 checks by EMS. Patient smells of tobacco the patient is non-toxic, in no apparent distress and appears healthy with a patent airway, no respiratory distress and has no apparent circulatory problems. Head & Scalp: Normocephalic, atraumatic. Face: Appears normal and is without lesions, deformity. Ears: Left external pinna appears normal. Right external pinna appears normal. Eyes: The sclera is anicteric. No obvious photophobia. The Left and Right Orbit/Lid/Conjunctiva appears normal without swelling, discoloration or injection. Nose: The nose is without deformity, discharge or tenderness; Throat: Appears normal. The mucous membranes are pink and moist without exudates, redness or mass seen. The tongue appears normal. Neck: The neck is supple and no apparent mass or adenopathy. Chest: The chest wall is normal in size and symmetry and has no chest wall tenderness or crepitus. The patient displays normal ventilator effort without retractions, accessory muscle use and has adequate air movement bilaterally but has bilateral wheezes in all lung shin. Cardiovascular: Regular rate and rhythm; No murmurs, rubs, or gallops; Gastrointestinal: The abdomen appears normal. No obvious hernias or mass. The abdomen is soft and benign, non-distended, with no pain, no guarding and no rebound tenderness. Bowel sounds are present and normal sounding. No CVA tenderness. Genitourinary: Back/Spine: Normal inspection Extremities/Musculoskeletal/lymphatic: The bilateral upper and lower extremities are warm. There is no evidence of arterial insufficiency. There is no evidence of venous insufficiency/edema. The patient spontaneously moves bilateral upper and lower extremities with no pain and no limitation of movement. There is no apparent, injury or trauma. Skin: The skin is warm, dry and intact. No rashes. No petechia. No purpura. No abnormal bruising. The color is appropriate with no cyanosis. Mental status/Psychiatric: Mental status is appropriate for age. The patient has no apparent delusions, visual hallucinations, no apparent audible hallucinations. The patient has no apparent suicidal thoughts/ideation and no apparent homicidal thoughts/ideation. Neurological: The patient is awake, alert, interactive, cordial, cooperative and is oriented to name and situation. The patient follows commands and answers historical question with no impairment. There is no visual disturbance apparent. The pupils are equal and reactive bilaterally with normal eye movements and no diplopia The bilateral upper and lower extremities have normal strength, normal range of motion and normal functioning. The gait, station and balance a were not tested due to acuity. Course Course Course Narrative: chest xray ordered to help determine etiology of shortness of breath. Quality Measures none Orders Category Date Time Status Lens Examiner STAT Care 01/18/25 08:49 Active Continuous Pulse Oximetry STAT Care 01/18/25 08:49 Completed EKG (ED ONLY) *Do not use* NOW Care 01/18/25 08:49 Completed Insert IV NOW Care 01/18/25 08:49 Active Miscellaneous Nursing Order NOW Care 01/18/25 08:49 Active NPO STAT Care 01/18/25 08:49 Active Occult Blood,Stool (Nursing) NOW Care 01/18/25 08:50 Active EKG (ED Only) Stat Exams 01/18/25 08:49 Draft XR chest 1V portable Stat Exams 01/18/25 08:49 Completed Alcohol, Blood Medical Stat Lab 01/18/25 09:50 Completed B-Type Natriuretic Peptide Stat Lab 01/18/25 09:50 Completed Blood Culture (Lab) Stat Lab 01/18/25 10:25 Received CBC Stat Lab 01/18/25 09:50 Completed Clostridium Difficile PCR Stat Lab 01/18/25 08:50 Ordered Comprehensive Metabolic Panel Stat Lab 01/18/25 09:50 Completed Drug Screen,Urine Stat Lab 01/18/25 10:51 Completed Giardia Antigen, EIA, Stool* Stat Lab 01/18/25 08:50 Ordered Helicobacter pylori Ag, Stool* Stat Lab 01/18/25 08:50 Ordered Lactate (Lactic Acid) Stat Lab 01/18/25 09:50 Completed Magnesium Stat Lab 01/18/25 09:50 Completed Norovirus, EIA (Stool)* Stat Lab 01/18/25 08:50 Ordered Occult Blood, Stool (LAB) Stat Lab 01/18/25 14:01 Completed Procalcitonin Stat Lab 01/18/25 09:50 Completed Stool Culture Stat Lab 01/18/25 08:50 Ordered Stool for WBCs Stat Lab 01/18/25 08:50 Ordered Troponin I Stat Lab 01/18/25 09:50 Completed Urinalysis Stat Lab 01/18/25 10:51 Completed Venous Blood Gas Stat Lab 01/18/25 09:50 Completed Venous Blood Gas Stat Lab 01/18/25 13:43 Completed ALBUTEROL RT 0.5ml [Proventil Rt 0.5ml] Med 01/18/25 08:49 Discontinued 10 mg INH X1 ONE Furosemide Inj [Lasix Inj] Med 01/18/25 11:05 Discontinued 40 mg IVP X1 ONE Ipratropium [place] Rt Dee [Atrovent Rt Dee] Med 01/18/25 08:49 Discontinued 0.5 mg INH X1 ONE MethylPREDNISolone.* [SoluMEDROL Inj] Med 01/18/25 08:49 Discontinued 125 mg IVP X1 ONE hydrALAZINE INJ [Apresoline Inj] Med 01/18/25 08:49 Discontinued 20 mg IV X1 ONE hydrALAZINE INJ [Apresoline Inj] Med 01/18/25 12:17 Discontinued 20 mg IV X1 ONE Oxygen Delivery NOW RT 01/18/25 08:49 Active Vital Signs Vital signs: Vital Signs Temperature 97.8 F 01/18/25 08:25 Pulse Rate 85 01/18/25 08:25 Respiratory Rate 20 01/18/25 08:25 Blood Pressure 206/135 H 01/18/25 08:25 Pulse Oximetry (%) 97 01/18/25 08:25 Oxygen Delivery Method Nasal Cannula 01/18/25 08:25 Oxygen Flow Rate 6 01/18/25 08:25 Pulse ox is 97% on 6L which is adequate. Nausea/Vomiting/Diarrhea MDM Narrative MDM Narrative:: IShira, thuy scribing for and in the presence of Dr. Javier. Patient comes in with multiple chronic disease including COPD past meth and alcohol abuse who has minimal shortness of breath but is wheezing in all lung shin and her main concern is having abdominal pain with lots of cramps with diarrhea and nausea. EMS gave her 1 dose of Zofran and her cramps and diarrhea seem to be controlled for the meantime we will work her up for shortness of breath and her hypertensive urgency with some hydralazine and reevaluate after breathing treatments and medications. Also patient had scant wheezing when she arrived and continuous neb was ordered and her breathing was much improved. She also has an congestive heart failure due to her BNP elevated and got some Lasix. Patient's charts were reviewed and she is use methamphetamine and has a alcohol use history history in the past. Medical evaluation reveals high blood pressure of 240 systolics to 206 on arrival which improved with initially 20 mg of hydralazine followed by another dose of hydralazine her white count was 8.1 hemoglobin 12.4 initial blood gas came back at 7.17 pCO2 of 39 consistent with a metabolic acidosis sodium 144 potassium 5.1 chloride 117 carbon Dexium 16.4 BUN 72 creatinine 4.0 she was dry with a calculated osmolality of 309. Total bilirubin was negative ALT AST was slightly elevated 1551 troponin slightly elevated BNP is greater than 30-80. Procalcitonin was negative urinalysis came back unremarkable. Urine drug screen is positive for methamphetamine. Clinically to 3 hours later patient is looking much better she admitted to using methamphetamine which is presumably wearing off as her pulses come down her blood pressure is improved although blood pressure medicine was also given her hypertensive emergency urgency appears to be improved enough that she can go to a hospitalist admit bed. Chest x-ray reviewed by myself reveals an enlarged heart is got a silhouette of the breast implant that is visible. There is no infiltrates there is no effusion. Evidently she has a history of breast cancer with surgery on the right side. Curiously enough on second reevaluation patient is feeling much better her breathing is improved her wheezes have resolved and patient is hungry wants food. Hospitalist was called and they will be admitting the patient. And they approved her to have food. Patient data External records reviewed:: [facility] previous records (I reviewed ED visit on 11/29/2024 ) and EMS form Clinical information provided by:: patient and EMS Social determinants that could affect healthcare access:: substance use (Active tobacco smoker, hx of meth use ) Patient has the following chronic illnesses:: HFrEF 45-50% 10/2024, hypertension, COPD, CKD, h/o breast cancer s/p unilateral mastectomy, polysubstance use disorder, active tobacco smoker How is presenting disease/condition affected by chronic disease/condition?: exacerbated by Evaluation data The following diagnostics were reviewed and interpreted by me:: lab results, radiology exam(s) and EKG tracing(s) (EKG @ 09:45 AM. Sinus rhythm, rate 85, no STEMI. ) Lab and/or radiology exams considered but not ordered:: None Interpretation Summary: Ordering Physician: Rudi Javier MD Date of Service: 01/18/25 Procedure(s): XR chest 1V portable Accession Number(s): [id number] cc: Rudi Javier MD; Panfilo Vasquez MD; NO PRIMARY/FAMILY,PHYSICIAN~ Examination: AP chest single view TECHNIQUE: AP portable upright chest single view Exam date and time: January 18, 2025 0912 hours Comparison November 29, 2024 INDICATIONS: Coughing dyspnea today. FINDINGS: Mild enlargement cardiac contour Mild vascular congestion Right axillary surgical clips. No lobar pneumonia or pulmonary edema IMPRESSION: No lobar pneumonia or pulmonary edema Dictated By: Panfilo Vasquez MD Signed By: <Electronically signed by Panfilo Vasquez MD in OV> 01/18/25 0952 Medications / Prescriptions Medications / Prescriptions considered but not ordered:: None Medication administrations:: Medication Administration History Acetaminophen (Acetaminophen 325 Mg Tablet) 650 mg PO Q6H PRN PRN Reason: Fever >100.4 or pain 1-3 Stop: 02/17/25 14:23 Albuterol/Ipratropium (Albuterol/Ipratropium (Duoneb) Rt Dee 3 Ml Nebu) 3 ml INH Q2HR PRN PRN Reason: SHORTNESS OF BREATH OR WHEEZE Stop: 02/17/25 14:27 Amlodipine Besylate (Amlodipine Besylate 5 Mg Tablet) 10 mg PO QDAY KENNEDY Stop: 02/17/25 14:29 Last Admin: 01/18/25 15:12 Dose: 10 mg Documented By: GM Citric Acid/Sodium Citrate (Citric Acid/Sodium Citr 15 Ml Udc (Bicitra)) 30 ml PO BID KENNEDY Stop: 02/17/25 20:59 Docusate Sodium (Docusate Sod 100 Mg Capsule) 100 mg PO QDAY PRN; Protocol PRN Reason: CONSTIPATION Stop: 02/17/25 14:23 Heparin Sodium (Porcine) (Heparin Sod Inj 5000 Unit/Ml Vial) 5,000 unit SC Q12HR KENNEDY Stop: 02/01/25 20:59 Magnesium Sulfate (Magnesium Sulfate Ivpb) 4 gm in 50 mls @ 12.5 mls/hr IV X1 ONE Stop: 01/18/25 19:15 Last Admin: 01/18/25 15:46 Dose: 12.5 mls/hr Documented By: GM Sodium Chloride (Ns) 1,000 mls @ 250 mls/hr IV .Q4H ONE Stop: 01/18/25 19:53 Last Admin: 01/18/25 16:31 Dose: 250 mls/hr Documented By: GM Ondansetron HCl (Ondansetron Inj 2 Mg/Ml Inj 2 Ml) 4 mg IV Q6H PRN; Protocol PRN Reason: NAUSEA OR VOMITING Stop: 02/17/25 14:23 Sennosides (Senna Tablet) 1 tab PO QDAY PRN; Protocol PRN Reason: constipation Stop: 02/17/25 14:23 Discontinued Medications Albuterol (Albuterol Rt 2.5 Mg/0.5 Ml Nebu) 10 mg INH X1 ONE Stop: 01/18/25 08:50 Last Admin: 01/18/25 10:07 Dose: 10 mg Documented By: JESSE Furosemide (Furosemide Inj 10 Mg/Ml 4ml Vial) 40 mg IVP X1 ONE Stop: 01/18/25 11:06 Last Admin: 01/18/25 11:12 Dose: 40 mg Documented By: DAVID Furosemide (Furosemide Inj 10 Mg/Ml 4ml Vial) 40 mg IVP BIDD [facility] Stop: 02/17/25 17:59 Hydralazine HCl (Hydralazine Inj 20 Mg/Ml Vial) 20 mg IV X1 ONE Stop: 01/18/25 08:50 Last Admin: 01/18/25 09:49 Dose: 20 mg Documented By: DAVID Hydralazine HCl (Hydralazine Inj 20 Mg/Ml Vial) 20 mg IV X1 ONE Stop: 01/18/25 12:18 Last Admin: 01/18/25 12:44 Dose: 20 mg Documented By: RODRIGO Sodium Bicarbonate 88.23 meq/ (Dextrose) 588.23 mls @ 100 mls/hr IV .Q5H53M [facility] Stop: 02/17/25 15:38 Last Admin: 01/18/25 17:30 Dose: Not Given Documented By: DAVID Non-Admin Reason: Discontinued Ipratropium [place] (Ipratropium Rt 0.5 Mg/ 2.5 Ml Nebu) 0.5 mg INH X1 ONE Stop: 01/18/25 08:50 Last Admin: 01/18/25 10:06 Dose: 0.5 mg Documented By: JESSE Methylprednisolone Sodium Succinate (Methylprednisolone Sod Succ 62.5 Mg/Ml 2ml Vial) 125 mg IVP X1 ONE Stop: 01/18/25 08:50 Last Admin: 01/18/25 09:49 Dose: 125 mg Documented By: DAVID See above Consultations Consultation(s) initiated? (list below): Yes Consultation #1 (Physician, Specialty, Details): I spoke with resident Dr. Simon regarding admission. Discussed patients PMHx, HPI, ED course, exam findings, labs, and radiology results. The hospitalist will come evaluate patient in the ED. Time: 13:25 Diagnosis Nausea Differential Diagnosis: food poisoning, gastroenteritis, clostridium difficile infection, drug-induced nausea and vomiting, dehydration and other (CHF exacerbation, COPD exacerbation, viral illness ) Most likely diagnosis given after review of the tests above:: Diarrhea Abdominal pain COPD exacerbation Nausea Tobacco use Hx of meth use SREE Respiratory acidosis Cardiomyopathy Admission Indicated Admission indicated?: indicated Admission Request Was there a request for admission?: Yes Admission Attestation Admission request attestation: Discussed case with [] from Hospitalist service regarding admission. Discussed patients ED course, exam findings, labs, and radiology results. The Hospitalist [agrees,declines] to accept the patient for admission. Disposition Plan Disposition Plan: Admit Critical Care Time Critical Care Time Critical Care Time: Yes Total Critical Care Time (min.): 45 Attestation: The high probability of sudden, clinically significant deterioration in the patient's condition required the highest level of my preparedness to intervene urgently. The services I provided to this patient were to treat and/or prevent clinically significant deterioration. Services included the following: chart data review, reviewing nursing notes and/or old charts, documentation time, network systems consultant collaboration regarding findings and treatment options, medication orders and management, direct patient care, vital sign assessments and ordering, interpreting and reviewing diagnostic studies and lab tests. Aggregate critical care time includes only time during which I was engaged in work directly related to the patient's care, as described above, whether at bedside or elsewhere in the Emergency Department. It did not include time spent performing other reported procedures or the services of residents, students, nurses or physician assistants. Discharge Plan Plan Patient Disposition: Admit Acute Care w/in Hospital Disposition Comment: Hospitalist admit Problem List Clinical Impression: Diarrhea, Abdominal pain, COPD exacerbation, Nausea, Tobacco use, History of methamphetamine abuse, Acute kidney injury, Hypertensive urgency, Amphetamine abuse, Cardiomyopathy, Acidosis, metabolic, with respiratory acidosis
--- NOTE | 2025-01-18 08:49 | XR_ITS ---
Examination: AP chest single view TECHNIQUE: AP portable upright chest single view Exam date and time: January 18, 2025 0912 hours Comparison November 29, 2024 INDICATIONS: Coughing dyspnea today. FINDINGS: Mild enlargement cardiac contour Mild vascular congestion Right axillary surgical clips. No lobar pneumonia or pulmonary edema IMPRESSION: No lobar pneumonia or pulmonary edema
--- NOTE | 2025-01-18 08:49 | EKG_ITS ---
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
[2025-01-18] MEDS: MethylPREDNISolone SOD SUCC 62.5 MG/ML 2ML VIAL 125 MG IVP (09:49)
[2025-01-18] MEDS: hydrALAZINE INJ 20 MG/ML VIAL IV ×2 (09:49→12:44)
--- NOTE | 2025-01-18 09:49 | PC.NURSE ---
RT CALLED AT THIS TIME FOR PT'S BREATHING TREATMENT; PER RT, WILL GO SEE PT SOON.
[2025-01-18 10:06] LABS: Lactate (Lactic Acid) 1.3 mMol/L (0.4-2.0)
[2025-01-18] MEDS: IPRATROPIUM RT 0.5 MG/ 2.5 ML NEBU INH (10:06)
[2025-01-18 10:07] LABS: Base Excess, Venous -14 (-3-3); O2 Saturation, Venous 65 % (96-97); PCO2, Venous 50 mmHg (36-56); PO2, Venous 38 mmHg (15-58); pH, Venous 7.11 (7.33-7.66)
[2025-01-18] MEDS: ALBUTEROL RT 2.5 MG/0.5 ML NEBU 10 MG INH (10:07)
[2025-01-18 10:11] LABS: Basophils # (Auto) 0.1 Thou/mm3 (0.0-0.2); Basophils % (Auto) 1 % (0-2.5); Eosinophils # (Auto) 0.1 Thou/mm3 (0.0-0.5); Eosinophils % (Auto) 1 % (0-10); Hematocrit 37.5 % (36.0-46.0); Hemoglobin 12.4 g/dL (12.0-16.0); Immature Granulocytes % (Auto) 1 % (0-0); Immature Granulocytes Auto 0.04 Thou/mm3 (0.00-0.00); Lymphocytes # (Auto) 0.8 Thou/mm3 (1.0-4.8); Lymphocytes % (Auto) 10 % (10-50); Mean Corpuscular HGB Conc 33.1 g/dl (31.0-37.0); Mean Corpuscular Hemoglobin 32.1 pg (25.0-35.0); Mean Corpuscular Volume 97 fL (80-100); Monocytes # (Auto) 0.3 Thou/mm3 (0.0-0.8); Monocytes % (Auto) 4 % (0-12); Neutrophils # (Auto) 6.9 Thou/mm3 (1.8-7.7); Neutrophils % (Auto) 84 % (37-80); Nucleated Red Blood Cell % 0 /100 WBC (0); Platelet Count 254 Thou/mm3 (140-440); RDW Standard Deviation 59.5 fL (36.4-46.3); Red Blood Count 3.86 Miln/mm3 (4.00-5.20); White Blood Count 8.1 Thou/mm3 (3.6-11.0)
[2025-01-18 10:38] LABS: B-Type Natriuretic Peptide > 3280 pg/mL (0-100)
[2025-01-18 10:49] LABS: Alanine Aminotransferase 51 U/L (10-49); Albumin, Serum 4.2 gm/dL (3.4-4.8); Albumin/Globulin Ratio 1.6 (1.2-2.2); Alcohol, Blood Medical < 10.0 mg/dL (0-10.0); Alkaline Phosphatase 139 U/L (46-116); Anion Gap 11 (7-16); Aspartate Amino Transferase 50 U/L (0-34); BUN/Creatinine Ratio 18 Ratio (12-20); Bilirubin,Total 0.2 mg/dL (0.3-1.2); Blood Urea Nitrogen 72 mg/dL (9-23); Calcium 7.2 mg/dL (8.3-10.6); Calcium (Corrected) 7.2 mg/dL (8.5-10.1); Carbon Dioxide 16.4 mMol/L (20.0-31.0); Chloride 117 mMol/L (98-107); Estimated Creatinine Clearance 11.1 mL/min (>60); Globulin 2.7 gm/dL (2.3-3.5); Glucose 110 mg/dL (74-106); Magnesium 1.3 mg/dL (1.6-2.6); Osmolality,Calculated 309 (275-295); Potassium 5.1 mMol/L (3.4-5.1); Procalcitonin 0.19 ng/ml (0.0-0.49); Sodium 144 mMol/L (136-145); Total Protein 6.9 gm/dL (5.7-8.2); eGFR 11 See Note
[2025-01-18 10:59] LABS: Troponin I 0.077 ng/mL (0.0-0.045)
[2025-01-18 11:05] LABS: Collection Type, Urine Clean Catch
[2025-01-18] MEDS: FUROSEMIDE INJ 10 MG/ML 4ML VIAL 40 MG IVP (11:12)
[2025-01-18 11:18] LABS: Bacteria,Urine Rare; Bilirubin,Urine Negative (Negative); Blood,Urine 1+ (Negative); Clarity,Urine Clear (Clear/Hazy); Color,Urine Lt-Yellow (Lt Yel-Yel); Glucose, Urine Trace (Negative); Hyaline Casts,Urine < 1 /hpf (0-1); Ketones,Urine Negative (Negative); Leukocyte Esterase,Urine Negative (Negative); Nitrite,Urine Negative (Negative); Protein,Urine 2+ (Neg - Trace); RBC,Urine 6 /hpf (0-3); Specific Gravity,Urine 1.013 (1.001-1.035); Squamous Epithelial Cell,Urine 3 /hpf (0-5); Urobilinogen,Urine Negative mg/dL (0.0-1.0); WBC,Urine 3 /hpf (0-5)
[2025-01-18 11:21] LABS: Amphetamine/Methamp Scrn,U Positive (Negative); Barbiturate Screen,Urine Negative (Negative); Benzodiazepines Screen,Urine Negative (Negative); Benzoylecgonine Screen, Ur Negative (Negative); Fentanyl Screen,Urine Negative (Negative); Opiate Screen,Urine Negative (Negative); THC Screen,Urine Negative (Negative)
[2025-01-18 13:50] LABS: Base Excess, Venous -14 (-3-3); O2 Saturation, Venous 88 % (96-97); PCO2, Venous 39 mmHg (36-56); PO2, Venous 57 mmHg (15-58); pH, Venous 7.17 (7.33-7.66)
--- NOTE | 2025-01-18 14:00 | PC.NURSE ---
Per Dr. Mac, pt can eat. Pt given ham sandwich and a cup of water at this time.
[2025-01-18] MEDS: amLODIPine BESYLATE 5 MG TABLET 10 MG PO (15:12)
--- NOTE | 2025-01-18 15:19 | PD.RESHP ---
Documentation for date of: 01/18/25 HPI History of Present Illness Chief complaint: Shortness of breath History of present illness: 69 y/o F with PMHx significant for hypertension, CKD, breast cancer s/p resection, COPD, CHF presents with chief complaint of shortness of breath. Patient also notes diarrhea x 5 days, reports smoking joint yesterday using meth earlier today. Since then patient has generalized malaise with shortness of breath. On presentation patient saturating well with minimal oxygen. Patient also reports having not taken any of her medications for some time. Patient denies chest pain, nausea, vomiting, fever, chills. ED COURSE: Labs significant for: WBC 8.1, chloride 117, bicarb 16.4, BUN 72, creatinine 4.0, EGFR 11, lactic acid 1.3. Troponin 0.077, below Patient's Baseline. BNP Greater Than 3000. Pro-Yuriy Negative. U Tox Showed Meth Positive. Imaging significant for: Chest x-ray showing mild vascular congestion. EKG unremarkable. Patient received methylprednisolone 125 mg, hydralazine 20 x 2, Lasix 40, albuterol 10 in the ED. PMH: Hypertension, COPD, CHF, CKD, breast cancer s/p resection PSH: left unilateral mastectomy with breat implant. SH: Lifelong smoker, denies alcohol use, endorses marijuana and meth use. Allergies:?Iodine Medications: Amlodipine, Coreg, Lasix, lisinopril, tolterodine, Trelegy Review of Systems Review of Systems Systems Reviewed: All systems reviewed, normal except as documented Past Medical History Past Medical History Comments PMH COMMENT: PMH: Hypertension, COPD, CHF, CKD, breast cancer s/p resection PSH: left unilateral mastectomy with breat implant. SH: Lifelong smoker, denies alcohol use, endorses marijuana and meth use. Allergies:?Iodine Medications: Amlodipine, Coreg, Lasix, lisinopril, tolterodine, Trelegy Exam Vital Signs Temp Pulse Resp BP Pulse Ox O2 Del Method O2 Flow Rate 98.3 F 89 19 164/86 H 95 Room Air 2 01/18/25 15:13 01/18/25 15:13 01/18/25 15:13 01/18/25 15:13 01/18/25 15:13 01/18/25 15:13 01/18/25 13:00 Narrative Exam PE: Gen: Well-developed and well-nourished. Distressed. HEENT: NCAT, PERRLA, EOMI, anicteric conjunctivae. Face is erythematous, patient states is normal for her. Dry mucous membranes. CVS: normal S1 and S2. RRR. No M/R/G. Resp: CTA B/L. No rhonchi, rales, crackles or wheezing. Abd: soft, non-tender, non-distended. MSK: Good ROM in BUE & BLE. No edema or rash. Neuro: CN II-XII grossly intact. Strength 5/5 in BUE & BLE. Alert and oriented x3. Psych: appropriate mood and affect. Results: Labs 01/19/25 09:34 01/19/25 07:43 Labs: Short CBC 01/18/25 Range/Units 09:50 WBC 8.1 (3.6-11.0) Thou/mm3 Hgb 12.4 (12.0-16.0) g/dL Hct 37.5 (36.0-46.0) % Plt Count 254 (140-440) Thou/mm3 BMP 01/18/25 09:50 Sodium 144 Potassium 5.1 Chloride 117 H Carbon Dioxide 16.4 L BUN 72 H Creatinine 4.0 H Glucose 110 H Calcium 7.2 L Cardiac Enzymes 01/18/25 Range/Units 09:50 Troponin I 0.077 H* (0.0-0.045) ng/mL Liver Function 01/18/25 Range/Units 09:50 Total Bilirubin 0.2 L (0.3-1.2) mg/dL AST 50 H (0-34) U/L ALT 51 H (10-49) U/L Alkaline Phosphatase 139 H (46-116) U/L Albumin 4.2 (3.4-4.8) gm/dL Urine 01/18/25 Range/Units 10:51 Urine Color Lt-Yellow (Lt Yel-Yel) Urine Clarity Clear (Clear/Hazy) Urine pH 6.0 (5.0-7.0) Ur Specific [place] 1.013 (1.001-1.035) Urine Protein 2+ A (Neg - Trace) Urine Glucose (UA) Trace (Negative) ABG Interpretation ABG results: 01/18/25 01/18/25 09:50 13:43 VBG pH 7.11 L 7.17 L VBG pCO2 50 39 D VBG pO2 38 57 VBG Base Excess -14 L -14 L Quality Measures Quality Measures VTE prophylaxis Advance care planning discussed with:: patient Medications Home Medications and Allergies Home Medications ?Medication ?Instructions ?Recorded ?Confirmed ?Type bupropion HCl 150 mg tablet,12 hr 150 mg PO BID 10/19/23 10/19/23 History sustained-release tolterodine 4 mg capsule,extended 4 mg PO QDAY 10/19/23 10/19/23 History release 24 hr Allergies Allergy/AdvReac Type Severity Reaction Status Date / Time iodine Allergy Severe Rash Verified 11/29/24 16:54 Visit Medications Acetaminophen (Acetaminophen 325 Mg Tablet) 650 mg PO Q6H PRN PRN Reason: Fever >100.4 or pain 1-3 Stop: 02/17/25 14:23 Albuterol/Ipratropium (Albuterol/Ipratropium (Duoneb) Rt Dee 3 Ml Nebu) 3 ml INH Q2HR PRN PRN Reason: SHORTNESS OF BREATH OR WHEEZE Stop: 02/17/25 14:27 Amlodipine Besylate (Amlodipine Besylate 5 Mg Tablet) 10 mg PO QDAY [facility] Stop: 02/17/25 14:29 Last Admin: 01/18/25 15:12 Dose: 10 mg Docusate Sodium (Docusate Sod 100 Mg Capsule) 100 mg PO QDAY PRN; Protocol PRN Reason: CONSTIPATION Stop: 02/17/25 14:23 Furosemide (Furosemide Inj 10 Mg/Ml 4ml Vial) 40 mg IVP BIDD [facility] Stop: 02/17/25 17:59 Heparin Sodium (Porcine) (Heparin Sod Inj 5000 Unit/Ml Vial) 5,000 unit SC Q12HR [facility] Stop: 02/01/25 20:59 Magnesium Sulfate (Magnesium Sulfate Ivpb) 4 gm in 50 mls @ 12.5 mls/hr IV X1 ONE Stop: 01/18/25 19:15 Ondansetron HCl (Ondansetron Inj 2 Mg/Ml Inj 2 Ml) 4 mg IV Q6H PRN; Protocol PRN Reason: NAUSEA OR VOMITING Stop: 02/17/25 14:23 Sennosides (Senna Tablet) 1 tab PO QDAY PRN; Protocol PRN Reason: constipation Stop: 02/17/25 14:23 Discontinued Medications Albuterol (Albuterol Rt 2.5 Mg/0.5 Ml Nebu) 10 mg INH X1 ONE Stop: 01/18/25 08:50 Last Admin: 01/18/25 10:07 Dose: 10 mg Furosemide (Furosemide Inj 10 Mg/Ml 4ml Vial) 40 mg IVP X1 ONE Stop: 01/18/25 11:06 Last Admin: 01/18/25 11:12 Dose: 40 mg Hydralazine HCl (Hydralazine Inj 20 Mg/Ml Vial) 20 mg IV X1 ONE Stop: 01/18/25 08:50 Last Admin: 01/18/25 09:49 Dose: 20 mg Hydralazine HCl (Hydralazine Inj 20 Mg/Ml Vial) 20 mg IV X1 ONE Stop: 01/18/25 12:18 Last Admin: 01/18/25 12:44 Dose: 20 mg Ipratropium [place] (Ipratropium Rt 0.5 Mg/ 2.5 Ml Nebu) 0.5 mg INH X1 ONE Stop: 01/18/25 08:50 Last Admin: 01/18/25 10:06 Dose: 0.5 mg Methylprednisolone Sodium Succinate (Methylprednisolone Sod Succ 62.5 Mg/Ml 2ml Vial) 125 mg IVP X1 ONE Stop: 01/18/25 08:50 Last Admin: 01/18/25 09:49 Dose: 125 mg Assessment & Plan Plan 69 y/o F with PMHx significant for hypertension, CKD, breast cancer s/p resection, COPD, CHF presents with chief complaint of shortness of breath, negative for metabolic acidosis with SREE on CKD. #Hyperchloremic metabolic acidosis non-anion gap #SREE #Acute diarrhea #Hypertensive emergency versus urgency Patient has acidosis as stated. Bicarb 16.4, chloride 117, lactic acid 0.3, VBG showed pH 7.17, pCO2 39. Patient reports 5-day history of diarrhea, potential source. Differential for SREE includes cardiorenal syndrome, hypertensive emergency, and dehydration secondary to diarrhea. BNP greater than 3000. Patient appears dry on exam, dry mucous membranes, no edema, no crackles in lung. Cardiology and nephrology consulted. Patient was extremely hypertensive on presentation, 220/142. Blood pressure significantly proved with minimal intervention, 164/86. Patient denies headaches, blurry vision, chest pain. - Nephrology consulted, appreciate recommendations - NS at 250 mL/h x 1 L - Bicitra 30 mL p.o. twice daily - Avoid nephrotoxins - Monitor daily labs - Renally dose medication - Slow decrease in blood pressure. #Polysubstance abuse Patient has history of polysubstance abuse, including methamphetamine, alcohol, marijuana. Patient denies alcohol use, but admits to meth and marijuana. U tox positive for meth. - Monitor for signs of withdrawal - Recruitment Intern patient regarding resources for addiction #CHF #COPD #Hypertension Patient has history as stated. Patient does not take any of her meds. On presentation, patient BNP greater than 3000, however appears clinically dry on exam. Troponin 0.077, lower than normal for patient. Patient complains of shortness of breath, but is not appear to be having COPD exacerbation, no wheezing on exam, no increased cough or sputum production. Potential cardiorenal syndrome given SREE. Aiming for slow decrease in blood pressure given hypertensive urgency versus emergency as above. - Cardiology consulted, appreciate recommendations - Resume home amlodipine - DuoNebs as needed - Consider resuming other home meds as appropriate DVT prophylaxis: Heparin GI prophylaxis: None Diet: Cardiac, renal, fluid restrict 1500 cc Lines: Peripheral IV Code status: Full code Plan of care discussed with attending Dr. Maharaj. Reji Mac MD PGY? Attending Provider Attestation/Addendum Dejan, Alisia Maharaj DO, attest that I was physically present for the rubin portions of the service and evaluated the patient with the resident and I reviewed and discussed the case with the resident and agree with the resident's findings and plans of care as documented above Patient is a 69-year-old female with past medical history of hypertension, CKD, breast cancer s/p resection, COPD, CHF Zentz to the ED with worsening shortness of breath that began yesterday. Patient states that she had smoked a joint and had a beer and noted worsening shortness of breath afterwards. She also admitted to using methamphetamine this morning prior to coming to the ER. She also states that she had diarrhea for the past few days. She reports having generalized weakness in addition to her symptoms. Patient is currently on 2 L nasal cannula, but able to speak full sentences. Patient was also noted to saturate in the 90s on room air. She is noted to have trace pitting edema in bilateral lower extremities. Lungs are clear to auscultation bilaterally. Patient admits to not being compliant with her medications at home. She is noted to have acute renal failure with creatinine of 4 from a baseline of 2.4. Nephrology consulted due to acute renal failure. Recommends IV fluid hydration. Patient noted to have a bicarb of 16.4. Will start on Bicitra. Patient noted to have elevated BNP as well. She had a recent echocardiogram done in October with an EF of 45 to 50% with severe biatrial dilatation. Will consult cardiology for further recommendations. Blood pressure appears to be uncontrolled. Will restart home medications as previously prescribed.
--- NOTE | 2025-01-18 15:45 | ESCONSULT_ITS ---
HPI Data of Consult Consult date: 01/18/25 Requesting Physician: lAisia Maharaj DO Admitting Provider: Alisia Maharaj DO Attending Provider: Alisia Maharaj DO Primary Care Provider: Physician No Primary/Family Consult Narrative Reason for consult: SREE on CKD History of present illness: Ms. Freed is a 69-year-old female past medical history of HFrEF with a EF of 45 to 50%, CKD stage IV, hypertension, COPD, breast cancer status post unilateral mastectomy, meth abuse who came in because of shortness of breath. Patient was seen at bedside in the ED and was shivering because she was feeling cold. She is a poor historian and has been noncompliant with his medications as she states that she only takes her meds on and off. She does reveal that she has been using meth for about a week and the last time was this morning prior to admission. She has also been having episodes of diarrhea that were brown and nonbloody for about a week. She states that she has been eating well however that is questionable as she says her last meal was sometime yesterday in the afternoon and the only thing she had today was a sandwich given to her by the ED. In terms of her symptoms patient's main complaint was a shortness of breath with mild chest pressure and a mild abdominal tenderness however she denies any fevers, chills, flulike symptoms, nausea, vomiting or rashes. Patient does state that she has been having headaches which goes along with her uncontrolled blood pressure. The neurology team was consulted as patient's renal function is worse than usual.Renal ultrasound obtained on September this year showed bilateral renal parenchymal scar formation with right renal cortical thinning. Chloride was elevated at 117 without a bicarb of 16.4. BUN was 72 and creatinine was 4.4 from a baseline of 2.5. Lactic acid was normal at 1.3 however troponins were mildly elevated at 0.077 and BUN was greater than 30-80. UA had 2+ protein without leukocyte esterase and only rare bacteria. U-Tox was positive for meth cc:: cc: Alisia Maharaj DO Review of Systems Review of Systems Systems Reviewed: All systems reviewed, normal except as documented Exam Vital Signs Temp Pulse Resp BP Pulse Ox O2 Del Method O2 Flow Rate 98.3 F 89 19 164/86 H 95 Room Air 2 01/18/25 15:13 01/18/25 15:13 01/18/25 15:13 01/18/25 15:13 01/18/25 15:13 01/18/25 15:13 01/18/25 13:00 Narrative Exam Constitutional: Disheveled elderly female that is shivering Head: Normocephalic/Atraumatic Eyes: PERRL , no conjunctival injection , symmetrical lids. ENMT: Dry mucous Membranes, No trauma or injury. CVS: RRR, S1 and S2 present, no murmurs, rubs or gallops . RESP: CTAB, no SOB, no rales, rhonchi or wheezing. No respiratory Distress. There is a right breast implant and a scar in the left chest wall from mastectomy. GI: Normal BS, Nontender/Nondistended. MSK: Full range of motion, No trauma or deformities or masses. No pitting edema Skin: Warm to touch, Dry. No rashes or lesions. No hematomas Neuro: financial service representative II-XII grossly intact. Sensation grossly intact. Psych: (AAO) x3 . Appropriate mood and affect. Results Labs 01/19/25 09:34 01/19/25 07:43 Labs: Short CBC 01/18/25 Range/Units 09:50 WBC 8.1 (3.6-11.0) Thou/mm3 Hgb 12.4 (12.0-16.0) g/dL Hct 37.5 (36.0-46.0) % Plt Count 254 (140-440) Thou/mm3 BMP 01/18/25 09:50 Sodium 144 Potassium 5.1 Chloride 117 H Carbon Dioxide 16.4 L BUN 72 H Creatinine 4.0 H Glucose 110 H Calcium 7.2 L Cardiac Enzymes 01/18/25 Range/Units 09:50 Troponin I 0.077 H* (0.0-0.045) ng/mL Liver Function 01/18/25 Range/Units 09:50 Total Bilirubin 0.2 L (0.3-1.2) mg/dL AST 50 H (0-34) U/L ALT 51 H (10-49) U/L Alkaline Phosphatase 139 H (46-116) U/L Albumin 4.2 (3.4-4.8) gm/dL Urine 04/30/25 Range/Units 10:51 Urine Color Lt-Yellow (Lt Yel-Yel) Urine Clarity Clear (Clear/Hazy) Urine pH 6.0 (5.0-7.0) Ur Specific [place] 1.013 (1.001-1.035) Urine Protein 2+ A (Neg - Trace) Urine Glucose (UA) Trace (Negative) ABG Interpretation ABG results: 01/18/25 01/18/25 09:50 13:43 VBG pH 7.11 L 7.17 L VBG pCO2 50 39 D VBG pO2 38 57 VBG Base Excess -14 L -14 L Quality Measures Quality Measures none Advance care planning discussed with:: patient Medications Home Medications and Allergies Home Medications ?Medication ?Instructions ?Recorded ?Confirmed ?Type bupropion HCl 150 mg tablet,12 hr 150 mg PO BID 10/19/23 History sustained-release tolterodine 4 mg capsule,extended 4 mg PO QDAY 4 10/19/23 History release 24 hr Allergies Allergy/AdvReac Type Severity Reaction Status Date / Time iodine Allergy Severe Rash Verified 11/29/24 16:54 Visit Medications Acetaminophen (Acetaminophen 325 Mg Tablet) 650 mg PO Q6H PRN PRN Reason: Fever >100.4 or pain 1-3 Stop: 02/17/25 14:23 Albuterol/Ipratropium (Albuterol/Ipratropium (Duoneb) Rt Dee 3 Ml Nebu) 3 ml INH Q2HR PRN PRN Reason: SHORTNESS OF BREATH OR WHEEZE Stop: 02/17/25 14:27 Amlodipine Besylate (Amlodipine Besylate 5 Mg Tablet) 10 mg PO QDAY [facility] Stop: 02/17/25 14:29 Last Admin: 01/18/25 15:12 Dose: 10 mg Docusate Sodium (Docusate Sod 100 Mg Capsule) 100 mg PO QDAY PRN; Protocol PRN Reason: CONSTIPATION Stop: 02/17/25 14:23 Furosemide (Furosemide Inj 10 Mg/Ml 4ml Vial) 40 mg IVP BIDD [facility] Stop: 02/17/25 17:59 Heparin Sodium (Porcine) (Heparin Sod Inj 5000 Unit/Ml Vial) 5,000 unit SC Q12HR [facility] Stop: 02/01/25 20:59 Magnesium Sulfate (Magnesium Sulfate Ivpb) 4 gm in 50 mls @ 12.5 mls/hr IV X1 ONE Stop: 01/18/25 19:15 Sodium Bicarbonate 88.23 meq/ (Dextrose) 588.23 mls @ 100 mls/hr IV .[id number] [facility] Stop: 02/17/25 15:38 Ondansetron HCl (Ondansetron Inj 2 Mg/Ml Inj 2 Ml) 4 mg IV Q6H PRN; Protocol PRN Reason: NAUSEA OR VOMITING Stop: 02/17/25 14:23 Sennosides (Senna Tablet) 1 tab PO QDAY PRN; Protocol PRN Reason: constipation Stop: 02/17/25 14:23 Discontinued Medications Albuterol (Albuterol Rt 2.5 Mg/0.5 Ml Nebu) 10 mg INH X1 ONE Stop: 01/18/25 08:50 Last Admin: 01/18/25 10:07 Dose: 10 mg Furosemide (Furosemide Inj 10 Mg/Ml 4ml Vial) 40 mg IVP X1 ONE Stop: 01/18/25 11:06 Last Admin: 01/18/25 11:12 Dose: 40 mg Hydralazine HCl (Hydralazine Inj 20 Mg/Ml Vial) 20 mg IV X1 ONE Stop: 01/18/25 08:50 Last Admin: 01/18/25 09:49 Dose: 20 mg Hydralazine HCl (Hydralazine Inj 20 Mg/Ml Vial) 20 mg IV X1 ONE Stop: 01/18/25 12:18 Last Admin: 01/18/25 12:44 Dose: 20 mg Ipratropium [place] (Ipratropium Rt 0.5 Mg/ 2.5 Ml Nebu) 0.5 mg INH X1 ONE Stop: 01/18/25 08:50 Last Admin: 01/18/25 10:06 Dose: 0.5 mg Methylprednisolone Sodium Succinate (Methylprednisolone Sod Succ 62.5 Mg/Ml 2ml Vial) 125 mg IVP X1 ONE Stop: 01/18/25 08:50 Last Admin: 01/18/25 09:49 Dose: 125 mg Assessment & Plan Plan 69-year-old female past medical history of HFrEF with a EF of 45 to 50%, CKD stage IV, hypertension, COPD, breast cancer status post unilateral mastectomy, meth abuse admitted for acute hypoxic respiratory failure and SREE #SREE on CKD #History of CKD stage IV #None anion gap metabolic acidosis Patient presents scented with elevated creatinine of 4.0 from a baseline of 2.5 and a BUN of 72. Patient has been noncompliant with her medications She has not been taking her Lasix and her BNP is 3280. However clinically patient is dehydrated with dry mucous membranes, decreased capillary refill. Patient received 1 dose of Lasix in the ER. Patient's lactic acid was normal at 1.3. Chloride was 117 and bicarb was 16.4 with a VBG showing a pH of 7.17 She has a history of HFrEF with previous echo showing 45 to 50% EF. Likely underlying cardiorenal syndrome Acidosis likely from persistent GI loses Plan: ? Will hold Lasix for now and give patient back 1 L bolus of NS slowly ? Trend renal function ? Avoid nephrotoxic medications ? Control hypertension ? Strict ZAKI's #Hypertensive emergency #Troponinemia #HFrEF exacerbation #Meth abuse #COPD #Diarrhea ? Managed as per primary team Thank you for allowing us to be part of patient care during her time at [facility] I discussed patient's care with attending physician, Dr Tess Yusuf PGY3 Attending Provider Attestation/Addendum Patient seen and examined with resident physician Dr. Yusuf. Note reviewed, agree with findings and recommendations.
[2025-01-18] MEDS: Magnesium Sulfate 4 GM Ivpb 4 GM/50 ML BAG IV (15:46)
[2025-01-18] MEDS: SODIUM CHLORIDE 0.9% 1000 ML 1,000 ML 250 ML IV (16:31)
[2025-01-18 17:26] LABS: OBS Developer Lot # 1-24551749; OBS Performed By madrg3; OBS QC OK? Yes; Occult Blood, Stool Negative (Negative)
--- NOTE | 2025-01-18 17:35 | PC.CC ---
Patient is a 69 year-old female who presents to the hospital for SOB. SATNAMWPatti and GYPSUM ROOFER Student Sintia made [id number] contact with patient. ASW introduced self, role, and reason for visit. Patient appeared alert and oriented to self, location, and situation. Patient provided consent for GYPSUM ROOFER to remain in the room during assessment. Patient was pleasant and engaged in initial assessment. Patient reports she is currently homeless and living in her van. Patient reports her medical decision maker in the event she is unable to make her own medical decisions would be her friend Jonh Jeffries . Patient reports she ambulates independently and is able to complete her own ADLs. Patient does not require DME. Patient goes to [facility] on [facility] in [place] for her medical needs and uses their pharmacy for prescription medications. Upon discharge patient does not know where she will be going. director of medical staff services to follow up with any discharge needs.
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
--- NOTE | 2025-01-18 18:51 | PC.NURSE ---
Patient given dinner tray at this time.
--- NOTE | 2025-01-18 20:16 | PC.NURSE ---
report called to Marija APODACA. Pt taken to rm 274 on monitor by me. Pt in NAD
[2025-01-18] MEDS: HEPARIN SOD INJ 5000 UNIT/ML VIAL SC (20:53)
[2025-01-18] MEDS: CITRIC ACID/SODIUM CITR 15 ML UDC (BICITRA) 30 ML PO (21:01)
[2025-01-19] VITALS (12 sets, daily range): BP systolic 128–174; BP diastolic 80–106; PULSE 71–97; RESP 15–19; TEMP 36–36.6; O2SAT 94–98; BMI 13.0
[2025-01-19] MEDS: HEPARIN SOD INJ 5000 UNIT/ML VIAL SC ×2 (08:17→20:21)
[2025-01-19] MEDS: amLODIPine BESYLATE 5 MG TABLET 10 MG PO (08:17)
[2025-01-19] MEDS: CITRIC ACID/SODIUM CITR 15 ML UDC (BICITRA) 30 ML PO (08:18)
--- NOTE | 2025-01-19 08:44 | ESPR_ITS ---
Documentation for date of: 01/19/25 Subjective Subjective Interval history: Ms. Freed is a 69-year-old female past medical history of HFrEF with a EF of 45 to 50%, CKD stage IV, hypertension, COPD, breast cancer status post unilateral mastectomy, meth abuse who came in because of shortness of breath. Patient was seen at bedside in the ED and was shivering because she was feeling cold. She is a poor historian and has been noncompliant with his medications as she states that she only takes her meds on and off. She does reveal that she has been using meth for about a week and the last time was this morning prior to admission. She has also been having episodes of diarrhea that were brown and nonbloody for about a week. She states that she has been eating well however that is questionable as she says her last meal was sometime yesterday in the afternoon and the only thing she had today was a sandwich given to her by the ED. In terms of her symptoms patient's main complaint was a shortness of breath with mild chest pressure and a mild abdominal tenderness however she denies any fevers, chills, flulike symptoms, nausea, vomiting or rashes. Patient does state that she has been having headaches which goes along with her uncontrolled blood pressure. The neurology team was consulted as patient's renal function is worse than usual.Renal ultrasound obtained on September this year showed bilateral renal parenchymal scar formation with right renal cortical thinning. Chloride was elevated at 117 without a bicarb of 16.4. BUN was 72 and creatinine was 4.4 from a baseline of 2.5. Lactic acid was normal at 1.3 however troponins were mildly elevated at 0.077 and BUN was greater than 30-80. UA had 2+ protein without leukocyte esterase and only rare bacteria. U-Tox was positive for meth 01/19/2025: Patient seen examined at bedside, resting comfortably. Patient endorses shortness of breath with mild distress, however saturating well on room air. Otherwise denies fever, chills, chest pain. Hemoglobin 11.4, chloride 115, bicarb 15 (decreased from yesterday). BUN 61, creatinine 3.8, eGFR 12, kidney function improving. Phosphorus 5.7, magnesium 1.8. On exam patient had bilateral edema and crackles in lungs. Suspect fluid overload, recommend diuretics. Exam Vital Signs Temp Pulse Resp BP Pulse Ox O2 Del Method O2 Flow Rate 97.1 F 87 15 166/106 H 96 Room Air 2 01/19/25 08:00 01/19/25 08:17 01/19/25 08:00 01/19/25 08:17 01/19/25 08:00 01/19/25 08:00 01/18/25 13:00 Narrative Exam Constitutional: Disheveled elderly female Head: Normocephalic/Atraumatic Eyes: PERRL, no conjunctival injection, symmetrical lids. ENMT: Dry mucous Membranes, No trauma or injury. CVS: RRR, S1 and S2 present, no murmurs, rubs or gallops . RESP: no SOB, no rales, rhonchi or wheezing. No respiratory Distress. There is a right breast implant and a scar in the left chest wall from mastectomy. bibasilar crackles, mild. GI: Normal BS, Nontender/Nondistended. MSK: Full range of motion, No trauma or deformities or masses. No pitting edema-- tense skin changes noted Skin: Warm to touch, Dry. No rashes or lesions. No hematomas Neuro: volunteer patient representative II-XII grossly intact. Sensation grossly intact. Psych: (AAO) x3 . Appropriate mood and affect. Objective Labs 01/19/25 09:34 01/19/25 07:43 Labs: Laboratory Results - last 24 hr 01/18/25 01/18/25 01/18/25 09:50 10:51 13:43 WBC 8.1 RBC 3.86 L Hgb 12.4 Hct 37.5 MCV 97 MCH 32.1 MCHC 33.1 RDW Std Deviation 59.5 H Plt Count 254 Neut % (Auto) 84 H Lymph % (Auto) 10 [place] % (Auto) 4 Eos % (Auto) 1 Baso % (Auto) 1 Neut # (Auto) 6.9 Lymph # (Auto) 0.8 L [place] # (Auto) 0.3 Eos # (Auto) 0.1 Baso # (Auto) 0.1 Immature Gran # (Auto) 0.04 H Absolute Nucleated RBC 0.00 Immature Gran % 1 H Nucleated RBC % 0 VBG pH 7.11 L 7.17 L VBG pCO2 50 39 D VBG pO2 38 57 VBG O2 Sat (Sarah) 65 L 88 L VBG Base Excess -14 L -14 L Sodium 144 Potassium 5.1 Chloride 117 H Carbon Dioxide 16.4 L Anion Gap 11 BUN 72 H Creatinine 4.0 H Estim Creat Clear Calc 11.1 L eGFR 11 L* BUN/Creatinine Ratio 18 Glucose 110 H Calculated Osmolality 309 H Lactic Acid 1.3 Calcium 7.2 L Corrected Calcium 7.2 L Magnesium 1.3 L Total Bilirubin 0.2 L AST 50 H ALT 51 H Alkaline Phosphatase 139 H Troponin I 0.077 H* B-Natriuretic Peptide > 3280 H* Total Protein 6.9 Albumin 4.2 Globulin 2.7 Albumin/Globulin Ratio 1.6 Procalcitonin 0.19 Ur Collection Type Clean Catch Urine Color Lt-Yellow Urine Clarity Clear Urine pH 6.0 Ur Specific [place] 1.013 Urine Protein 2+ A Urine Glucose (UA) Trace Urine Ketones Negative Urine Blood 1+ A Urine Nitrite Negative Urine Bilirubin Negative Urine Urobilinogen (Auto) Negative Ur Leukocyte Esterase Negative Urine RBC 6 H Urine WBC 3 Ur Squamous Epith Cells 3 Urine Bacteria Rare Hyaline Casts < 1 Stool Occult Blood Urine Opiates Screen Negative Urine Fentanyl Screen Negative Ur Barbiturates Screen Negative U Amphetamin/Meth Scrn Positive A U Benzodiazepines Scrn Negative U Cocaine Metab Screen Negative U Marijuana (THC) Screen Negative Ethyl Alcohol < 10.0 01/18/25 14:01 WBC RBC Hgb Hct MCV MCH MCHC RDW Std Deviation Plt Count Neut % (Auto) Lymph % (Auto) [place] % (Auto) Eos % (Auto) Baso % (Auto) Neut # (Auto) Lymph # (Auto) [place] # (Auto) Eos # (Auto) Baso # (Auto) Immature Gran # (Auto) Absolute Nucleated RBC Immature Gran % Nucleated RBC % VBG pH VBG pCO2 VBG pO2 VBG O2 Sat (Sarah) VBG Base Excess Sodium Potassium Chloride Carbon Dioxide Anion Gap BUN Creatinine Estim Creat Clear Calc eGFR BUN/Creatinine Ratio Glucose Calculated Osmolality Lactic Acid Calcium Corrected Calcium Magnesium Total Bilirubin AST ALT Alkaline Phosphatase Troponin I B-Natriuretic Peptide Total Protein Albumin Globulin Albumin/Globulin Ratio Procalcitonin Ur Collection Type Urine Color Urine Clarity Urine pH Ur Specific [place] Urine Protein Urine Glucose (UA) Urine Ketones Urine Blood Urine Nitrite Urine Bilirubin Urine Urobilinogen (Auto) Ur Leukocyte Esterase Urine RBC Urine WBC Ur Squamous Epith Cells Urine Bacteria Hyaline Casts Stool Occult Blood Negative Urine Opiates Screen Urine Fentanyl Screen Ur Barbiturates Screen U Amphetamin/Meth Scrn U Benzodiazepines Scrn U Cocaine Metab Screen U Marijuana (THC) Screen Ethyl Alcohol ABG Interpretation ABG results: 01/18/25 01/18/25 09:50 13:43 VBG pH 7.11 L 7.17 L VBG pCO2 50 39 D VBG pO2 38 57 VBG Base Excess -14 L -14 L Quality Measures Quality Measures VTE prophylaxis Advance care planning discussed with:: patient Assessment & Plan Assessment Current Active Medications: Generic Name Dose Route Start Last Admin Trade Name Freq PRN Reason Stop Dose Admin Acetaminophen 650 mg 01/18/25 14:24 Acetaminophen 325 Mg Tablet PO 02/17/25 14:23 Q6H PRN Fever >100.4 or pain 1-3 Albuterol/Ipratropium 3 ml 01/18/25 14:28 Albuterol/Ipratropium (Duoneb) Rt Dee 3 Ml Nebu INH 02/17/25 14:27 Q2HR PRN SHORTNESS OF BREATH OR WHEEZE Amlodipine Besylate 10 mg 01/18/25 14:30 01/19/25 08:17 Amlodipine Besylate 5 Mg Tablet PO 02/17/25 14:29 10 mg QDAY KENNEDY Administration Bumetanide 2 mg 01/19/25 09:00 Bumetanide Inj 0.25 Mg/Ml Vial 4 Ml IVP 02/18/25 08:59 QDAY KENNEDY Citric Acid/Sodium Citrate 30 ml 01/18/25 21:00 01/19/25 08:18 Citric Acid/Sodium Citr 15 Ml Udc (Bicitra) PO 02/17/25 20:59 30 ml BID KENNEDY Administration Docusate Sodium 100 mg 01/18/25 14:24 Docusate Sod 100 Mg Capsule PO 02/17/25 14:23 QDAY PRN CONSTIPATION Protocol Heparin Sodium (Porcine) 5,000 unit 01/18/25 21:00 01/19/25 08:17 Heparin Sod Inj 5000 Unit/Ml Vial SC 02/01/25 20:59 5,000 unit Q12HR KENNEDY Administration Hydralazine HCl 10 mg 01/18/25 20:56 Hydralazine Inj 20 Mg/Ml Vial IV 02/17/25 20:59 Q6H PRN SBP > 180 and HR <110 Ondansetron HCl 4 mg 01/18/25 14:24 Ondansetron Inj 2 Mg/Ml Inj 2 Ml IV 02/17/25 14:23 Q6H PRN NAUSEA OR VOMITING Protocol Sennosides 1 tab 01/18/25 14:24 Senna Tablet PO 02/17/25 14:23 QDAY PRN constipation Protocol Plan 69-year-old female past medical history of HFrEF with a EF of 45 to 50%, CKD stage IV, hypertension, COPD, breast cancer status post unilateral mastectomy, meth abuse admitted for acute hypoxic respiratory failure and SREE #SREE on CKD #History of CKD stage IV #Non anion gap metabolic acidosis Patient presents scented with elevated creatinine of 4.0 from a baseline of 2.5 and a BUN of 72. Patient has been noncompliant with her medications She has not been taking her Lasix and her BNP is 3280. However clinically patient is dehydrated with dry mucous membranes, decreased capillary refill. Patient received 1 dose of Lasix in the ER. Patient's lactic acid was normal at 1.3. Chloride was 117 and bicarb was 16.4 with a VBG showing a pH of 7.17 She has a history of HFrEF with previous echo showing 45 to 50% EF. Likely underlying cardiorenal syndrome Acidosis likely from persistent GI loses Patient kidney function is improving, however bicarb levels decreased. Patient received IV fluids yesterday, appears volume overloaded today. ? Recommend Lasix 20 mg IV daily ? Trend renal function ? Avoid nephrotoxic medications ? Control hypertension ? Strict ZAKI's - Agree with Bicitra 30 mL p.o. twice daily #Hypertensive emergency #Troponinemia #HFrEF exacerbation #Meth abuse #COPD #Diarrhea ? Managed as per primary team Thank you for allowing us to be part of patient care during her time at [facility] Plan of care discussed with attending Dr. Pulido. Reji Elliott MD PGY?1 Attending Provider Attestation/Addendum Patient currently seen and examined with resident physician Dr. Mac. Note reviewed, agree with findings and recommendations. Clinically patient looks rather hypervolemic. Most likely she has cardiorenal syndrome. Echocardiogram 40 to 45%. Continue with diuretics. Added Bicitra
[2025-01-19 08:55] LABS: Alanine Aminotransferase 35 U/L (10-49); Albumin, Serum 3.7 gm/dL (3.4-4.8); Albumin/Globulin Ratio 1.6 (1.2-2.2); Alkaline Phosphatase 105 U/L (46-116); Anion Gap 13 (7-16); Aspartate Amino Transferase 26 U/L (0-34); BUN/Creatinine Ratio 16 Ratio (12-20); Bilirubin,Total 0.2 mg/dL (0.3-1.2); Blood Urea Nitrogen 61 mg/dL (9-23); Calcium 7.2 mg/dL (8.3-10.6); Calcium (Corrected) 7.4 mg/dL (8.5-10.1); Chloride 115 mMol/L (98-107); Creatinine (Component) 3.8 mg/dL (0.6-1.3); Globulin 2.3 gm/dL (2.3-3.5); Glucose 156 mg/dL (74-106); Magnesium 1.8 mg/dL (1.6-2.6); Osmolality,Calculated 305 (275-295); Phosphorous 5.7 mg/dL (2.4-5.1); Potassium 4.9 mMol/L (3.4-5.1); Sodium 143 mMol/L (136-145); eGFR 12 See Note
[2025-01-19] MEDS: BUMETANIDE INJ 0.25 MG/ML VIAL 4 ML 2 MG IVP (09:13)
[2025-01-19 09:57] LABS: Basophils # (Auto) 0.1 Thou/mm3 (0.0-0.2); Basophils % (Auto) 1 % (0-2.5); Eosinophils % (Auto) 0 % (0-10); Hematocrit 34.1 % (36.0-46.0); Hemoglobin 11.4 g/dL (12.0-16.0); Immature Granulocytes % (Auto) 1 % (0-0); Immature Granulocytes Auto 0.05 Thou/mm3 (0.00-0.00); Lymphocytes % (Auto) 10 % (10-50); Mean Corpuscular HGB Conc 33.4 g/dl (31.0-37.0); Mean Corpuscular Hemoglobin 31.9 pg (25.0-35.0); Mean Corpuscular Volume 96 fL (80-100); Monocytes # (Auto) 0.4 Thou/mm3 (0.0-0.8); Monocytes % (Auto) 5 % (0-12); Neutrophils # (Auto) 8.1 Thou/mm3 (1.8-7.7); Neutrophils % (Auto) 84 % (37-80); Nucleated Red Blood Cell % 0 /100 WBC (0); Platelet Count 265 Thou/mm3 (140-440); RDW Standard Deviation 58.4 fL (36.4-46.3); Red Blood Count 3.57 Miln/mm3 (4.00-5.20); White Blood Count 9.6 Thou/mm3 (3.6-11.0)
--- NOTE | 2025-01-19 11:51 | ESPR_ITS ---
Documentation for date of: 01/19/25 Subjective Subjective Interval history: Patient seen today at the bedside found awake, alert, oriented x 3. No overnight events reported. Vital signs and labs reviewed. Minimal crackles heard on auscultation. Cardiology started the patient on Bumex 2 mg daily. Echo report showed ejection fraction 45-50% with biatrial dilation. Patient continues to be acidotic Bicitra dosage adjusted. Patient's blood pressure continue to be elevated and added on carvedilol 6.25 mg twice daily will uptitrate as tolerated. Exam Vital Signs Temp Pulse Resp BP Pulse Ox O2 Del Method O2 Flow Rate 97.1 F 87 15 166/106 H 96 Room Air 2 01/19/25 08:00 01/19/25 09:13 01/19/25 08:00 01/19/25 09:13 01/19/25 08:00 01/19/25 08:00 01/18/25 13:00 Narrative Exam Physical Exam GENERAL: NAD, AAOx3 HEENT: Moist mucosa. Eyes open, symmetrical, & clear CARDIO: Heart RRR, no obvious murmurs, right breast implant and a scar in the left chest wall from mastectomy PULM: No noted coughing/dyspnea, minimal crackles bilaterally GI: Abdomen soft, nondistended, no pain on palpation. BSx4 SKIN/MSK/EXT: No wounds/rashes/edema/amputations, no pain on palpation. Pedal pulses present B/L NEURO: AAOx3, no focal neuro deficits, able to move all 4 extremities Objective Labs 01/20/25 04:55 01/20/25 04:55 Labs: Laboratory Results - last 24 hr 01/18/25 01/18/25 01/19/25 13:43 14:01 07:43 WBC Cancelled RBC Cancelled Hgb Cancelled Hct Cancelled MCV Cancelled MCH Cancelled MCHC Cancelled RDW Std Deviation Cancelled Plt Count Cancelled Neut % (Auto) Cancelled Lymph % (Auto) Cancelled [place] % (Auto) Cancelled Eos % (Auto) Cancelled Baso % (Auto) Cancelled Neut # (Auto) Cancelled Lymph # (Auto) Cancelled [place] # (Auto) Cancelled Eos # (Auto) Cancelled Baso # (Auto) Cancelled Immature Gran # (Auto) Cancelled Absolute Nucleated RBC Cancelled Immature Gran % Cancelled Nucleated RBC % Cancelled VBG pH 7.17 L VBG pCO2 39 D VBG pO2 57 VBG O2 Sat (Sarah) 88 L VBG Base Excess -14 L Sodium 143 Potassium 4.9 Chloride 115 H Carbon Dioxide 15.0 L Anion Gap 13 BUN 61 H Creatinine 3.8 H Estim Creat Clear Calc 13.0 L eGFR 12 L* BUN/Creatinine Ratio 16 Glucose 156 H Calculated Osmolality 305 H Calcium 7.2 L Corrected Calcium 7.4 L Phosphorus 5.7 H Magnesium 1.8 Total Bilirubin 0.2 L AST 26 ALT 35 Alkaline Phosphatase 105 D Total Protein 6.0 Albumin 3.7 D Globulin 2.3 Albumin/Globulin Ratio 1.6 Stool Occult Blood Negative 01/19/25 09:34 WBC 9.6 RBC 3.57 L Hgb 11.4 L Hct 34.1 L MCV 96 MCH 31.9 MCHC 33.4 RDW Std Deviation 58.4 H Plt Count 265 Neut % (Auto) 84 H Lymph % (Auto) 10 [place] % (Auto) 5 Eos % (Auto) 0 Baso % (Auto) 1 Neut # (Auto) 8.1 H Lymph # (Auto) 1.0 [place] # (Auto) 0.4 Eos # (Auto) 0.0 Baso # (Auto) 0.1 Immature Gran # (Auto) 0.05 H Absolute Nucleated RBC 0.00 Immature Gran % 1 H Nucleated RBC % 0 VBG pH VBG pCO2 VBG pO2 VBG O2 Sat (Sarah) VBG Base Excess Sodium Potassium Chloride Carbon Dioxide Anion Gap BUN Creatinine Estim Creat Clear Calc eGFR BUN/Creatinine Ratio Glucose Calculated Osmolality Calcium Corrected Calcium Phosphorus Magnesium Total Bilirubin AST ALT Alkaline Phosphatase Total Protein Albumin Globulin Albumin/Globulin Ratio Stool Occult Blood ABG Interpretation ABG results: 01/18/25 01/18/25 09:50 13:43 VBG pH 7.11 L 7.17 L VBG pCO2 50 39 D VBG pO2 38 57 VBG Base Excess -14 L -14 L Quality Measures Quality Measures VTE prophylaxis Advance care planning discussed with:: patient Assessment & Plan Assessment Current Active Medications: Generic Name Dose Route Start Last Admin Trade Name Freq PRN Reason Stop Dose Admin Acetaminophen 650 mg 01/18/25 14:24 Acetaminophen 325 Mg Tablet PO 02/17/25 14:23 Q6H PRN Fever >100.4 or pain 1-3 Albuterol/Ipratropium 3 ml 01/18/25 14:28 Albuterol/Ipratropium (Duoneb) Rt Dee 3 Ml Nebu INH 02/17/25 14:27 Q2HR PRN SHORTNESS OF BREATH OR WHEEZE Amlodipine Besylate 10 mg 01/18/25 14:30 01/19/25 08:17 Amlodipine Besylate 5 Mg Tablet PO 02/17/25 14:29 10 mg QDAY KENNEDY Administration Bumetanide 2 mg 01/19/25 09:00 01/19/25 09:13 Bumetanide Inj 0.25 Mg/Ml Vial 4 Ml IVP 02/18/25 08:59 2 mg QDAY KENNEDY Administration Carvedilol 6.25 mg 01/19/25 17:30 Carvedilol 3.125 Mg Tablet PO 02/18/25 17:29 BIDWM KENNEDY Citric Acid/Sodium Citrate 60 ml 01/19/25 21:00 Citric Acid/Sodium Citr 15 Ml Udc (Bicitra) PO 02/18/25 20:59 BID KENENDY Docusate Sodium 100 mg 01/18/25 14:24 Docusate Sod 100 Mg Capsule PO 02/17/25 14:23 QDAY PRN CONSTIPATION Protocol Heparin Sodium (Porcine) 5,000 unit 01/18/25 21:00 01/19/25 08:17 Heparin Sod Inj 5000 Unit/Ml Vial SC 02/01/25 20:59 5,000 unit Q12HR KENNEDY Administration Hydralazine HCl 10 mg 01/18/25 20:56 Hydralazine Inj 20 Mg/Ml Vial IV 02/17/25 20:59 Q6H PRN SBP > 180 and HR <110 Ondansetron HCl 4 mg 01/18/25 14:24 Ondansetron Inj 2 Mg/Ml Inj 2 Ml IV 02/17/25 14:23 Q6H PRN NAUSEA OR VOMITING Protocol Sennosides 1 tab 01/18/25 14:24 Senna Tablet PO 02/17/25 14:23 QDAY PRN constipation Protocol Plan 69 y/o F with PMHx significant for hypertension, CKD, breast cancer s/p resection, COPD, CHF presents with chief complaint of shortness of breath, negative for metabolic acidosis with SREE on CKD. #Hyperchloremic metabolic acidosis non-anion gap #SREE #Acute diarrhea #Hypertensive urgency-resolved Patient has acidosis as stated. Bicarb 16.4, chloride 117, lactic acid 0.3, VBG showed pH 7.17, pCO2 39. Patient reports 5-day history of diarrhea, potential source. Differential for SREE includes cardiorenal syndrome, hypertensive emergency, and dehydration secondary to diarrhea. BNP greater than 3000. Patient appears dry on exam, dry mucous membranes, no edema, no crackles in lung. Cardiology and nephrology consulted. Patient was extremely hypertensive on presentation, 220/142. Blood pressure significantly proved with minimal intervention, 164/86. Patient denies headaches, blurry vision, chest pain. Blood pressure after starting carvedilol 122/79, HR 79 - Nephrology consulted, appreciate recommendations ? Bicitra dose adjusted to 60 twice daily ? started on Coreg 6.25 mg twice daily - Avoid nephrotoxins - Monitor daily labs - Renally dose medication - Slow decrease in blood pressure. #Acute decompensated heart failure #HFmEF [EF 45-50%] #? Cardiorenal syndrome #Elevated troponins On presentation patient came in with shortness of breath associated with paroxysmal nocturnal dyspnea, orthopnea and mild lower extremity edema. Patient does have history of smoking THC and methamphetamine use. On admission patient had bilateral crackles however mucous membranes were dry and pitting edema was trace. Chest x-ray showed some vascular congestion and had a brain natriuretic peptide of over 3000 with mildly elevated troponins. Patient is currently saturating 98% on room air Renal function continues poor even after fluids, symptoms seem to point to type II cardiorenal syndrome, spoke to cardiology service recommended starting patient on diuresis ? On Bumex 2 mg daily as per cardiology recommendations ? Fluid restriction 1500 cc ? Strict ins and outs ? Daily weights ? Keep K >4, Mg >2 ? Cardiology consulted, appreciate recommendations #COPD #Hypertension Patient has history as stated. Patient does not take any of her meds. On presentation, patient BNP greater than 3000, however appears clinically dry on exam. Troponin 0.077, lower than normal for patient. Patient complains of shortness of breath, but is not appear to be having COPD exacerbation, no wheezing on exam, no increased cough or sputum production. Potential cardiorenal syndrome given SREE. Aiming for slow decrease in blood pressure given hypertensive urgency versus emergency as above. ? Started on carvedilol 6.25 mg twice daily ? Continue amlodipine 10 mg daily ? DuoNebs ordered as needed #Polysubstance abuse Patient has history of polysubstance abuse, including methamphetamine, alcohol, marijuana. Patient denies alcohol use, but admits to meth and marijuana. U tox positive for meth. - Monitor for signs of withdrawal - Excellence Consultant patient regarding resources for addiction Plan of care discussed with attending Dr. Maharaj. Anuel Thomas MD PGY-1 DVT prophylaxis: Heparin GI prophylaxis: None Diet: Cardiac, renal, fluid restrict 1500 cc Lines: Peripheral IV Code status: Full code Attending Provider Attestation/Addendum Alisia Wylie, , attest that I was physically present for the rubin portions of the service and evaluated the patient with the resident and I reviewed and discussed the case with the resident and agree with the resident's findings and plans of care as documented above Patient seen eval this a.m. She remains on room air. She reports improvement in her shortness of breath. Patient had received some IV fluids due to SREE overnight. However, as recommended by cardiology to diurese patient. Patient was started on Bumex 2 mg IV daily. PureWick is in place and will monitor I's and O's closely. Patient has no complaints at this time. Will continue to monitor renal function closely. Will restart home medication due to uncontrolled blood pressure. Will uptitrate antihypertensives as needed. Continue Bicitra due to metabolic acidosis.
[2025-01-19] MEDS: carVEDILOL 3.125 MG TABLET 6.25 MG PO ×2 (11:56→17:25)
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
--- NOTE | 2025-01-19 13:48 | PC.SS ---
Addendum entered by BRENNEN Herrera 01/19/25 15:01: Rounding note: continued diereses for the patient. Possible d/c tomorrow. Original Note: SS follow up note: per PT Smita patient is needing a rollator walker. Contacted [facility] and spoke with Arin and they informed the patient does not qualify for walker as she just received one during October 2024, and only eligible every five years. Met with patient to notify her and she verbalized understanding. Patient informs she has a home oxygen tank used at night only. Per patient she will discharge to a skilled nursing at time of discharge as she is unable to stay with her friend Jonh at this time. Provided the patient with skilled nursing resources and patient informs she may require transportation to skilled nursing at time of discharge to be arranged for her.
[2025-01-19] MEDS: Magnesium Sulfate 4 GM Ivpb 4 GM/50 ML BAG IV (15:38)
--- NOTE | 2025-01-19 17:32 | XR_ITS ---
Examination: Duplex scan of the upper extremity, unilateral left Date and time of exam: January 19, 2025 1858 hours INDICATIONS: Left arm redness swelling and pain beginning 2 days ago Technique: Duplex scan of the extremity veins using B-mode/grayscale imaging and Doppler spectral analysis and color flow Attention is directed to internal echogenicity, compression and augmentation involving these veins, color flow assessment, spectral analysis Findings: Major deep venous structures in the extremity demonstrate normal course and caliber. There is no evidence of deep vein thrombosis. Normal color flow and spectral analysis Impression: Negative for DVT..
--- NOTE | 2025-01-19 19:03 | PC.NURSE ---
Pt complaining of pain on left arm, new swelling in ac area of arm. IV discontinued and Dr. Mcginnis notified. Armand ordered
[2025-01-19] MEDS: CITRIC ACID/SODIUM CITR 15 ML UDC (BICITRA) 60 ML PO (20:17)
[2025-01-20] VITALS (10 sets, daily range): BP systolic 155–189; BP diastolic 72–106; PULSE 68–103; RESP 14–25; TEMP 36.1–36.3; O2SAT 92–97
[2025-01-20 06:25] LABS: Basophils # (Auto) 0.1 Thou/mm3 (0.0-0.2); Basophils % (Auto) 1 % (0-2.5); Eosinophils # (Auto) 0.1 Thou/mm3 (0.0-0.5); Eosinophils % (Auto) 1 % (0-10); Hematocrit 33.8 % (36.0-46.0); Hemoglobin 11.4 g/dL (12.0-16.0); Immature Granulocytes % (Auto) 0 % (0-0); Immature Granulocytes Auto 0.02 Thou/mm3 (0.00-0.00); Lymphocytes # (Auto) 1.9 Thou/mm3 (1.0-4.8); Lymphocytes % (Auto) 22 % (10-50); Mean Corpuscular HGB Conc 33.7 g/dl (31.0-37.0); Mean Corpuscular Hemoglobin 31.8 pg (25.0-35.0); Mean Corpuscular Volume 94 fL (80-100); Monocytes # (Auto) 0.6 Thou/mm3 (0.0-0.8); Monocytes % (Auto) 7 % (0-12); Neutrophils % (Auto) 69 % (37-80); Nucleated Red Blood Cell % 0 /100 WBC (0); Platelet Count 271 Thou/mm3 (140-440); RDW Standard Deviation 56.9 fL (36.4-46.3); Red Blood Count 3.59 Miln/mm3 (4.00-5.20); White Blood Count 8.8 Thou/mm3 (3.6-11.0)
[2025-01-20 07:09] LABS: Alanine Aminotransferase 26 U/L (10-49); Albumin, Serum 3.5 gm/dL (3.4-4.8); Albumin/Globulin Ratio 1.6 (1.2-2.2); Alkaline Phosphatase 88 U/L (46-116); Anion Gap 14 (7-16); Aspartate Amino Transferase 16 U/L (0-34); BUN/Creatinine Ratio 20 Ratio (12-20); Bilirubin,Total 0.3 mg/dL (0.3-1.2); Blood Urea Nitrogen 80 mg/dL (9-23); Calcium 7.6 mg/dL (8.3-10.6); Carbon Dioxide 20.2 mMol/L (20.0-31.0); Chloride 112 mMol/L (98-107); Creatinine (Component) 4.1 mg/dL (0.6-1.3); Estimated Creatinine Clearance 11.8 mL/min (>60); Globulin 2.2 gm/dL (2.3-3.5); Glucose 82 mg/dL (74-106); Magnesium 2.3 mg/dL (1.6-2.6); Osmolality,Calculated 313 (275-295); Phosphorous 4.8 mg/dL (2.4-5.1); Potassium 4.3 mMol/L (3.4-5.1); Sodium 146 mMol/L (136-145); Total Protein 5.7 gm/dL (5.7-8.2); eGFR 11 See Note
[2025-01-20] MEDS: HEPARIN SOD INJ 5000 UNIT/ML VIAL SC ×2 (08:05→21:02)
[2025-01-20] MEDS: carVEDILOL 12.5 MG TABLET PO ×2 (08:06→17:36)
[2025-01-20] MEDS: amLODIPine BESYLATE 5 MG TABLET 10 MG PO (08:06)
[2025-01-20] MEDS: CITRIC ACID/SODIUM CITR 15 ML UDC (BICITRA) 60 ML PO ×2 (09:15→21:02)
--- NOTE | 2025-01-20 09:30 | PD.RESPRO ---
Documentation for date of: 01/20/25 Subjective Subjective Interval history: Seen and examined at bedside. No acute overnight events. Feels well today. Denies new symptoms or worsening of symptoms. Afebrile, BP 180/106 before meds, HR 70, on room air. She had good response to BUMEX 2 mg, urine output 1650 cc, no lung crackles. CBC panel relatively unchanged. Chem panel showing increased sodium 146, BUN 80, CR 4.1, and GFR 11. Nephrology considering HD if renal function continues to decline, suspecting over-diuresis. Will hold DIURESIS and fluid restriction for now. Exam Vital Signs Temp Pulse Resp BP Pulse Ox O2 Del Method O2 Flow Rate 97.0 F 70 15 180/106 H 97 Room Air 2 01/20/25 08:00 01/20/25 08:06 01/20/25 08:00 01/20/25 08:06 01/20/25 08:00 01/20/25 08:00 01/19/25 16:00 Narrative Exam General: AOx3, no acute distress, NAD, on room air. HEENT: dry mucous membranes, NC/AT, bilateral sclera anicteric Cardiovascular: regular rate and rhythm, S1/S2 present, no murmurs appreciated Pulmonary: CTAB, no w/r/r. Abdominal: soft, non-tender, non-distended, no rebound/guarding, normal bowel sounds present Musculoskeletal: No BLE pitting edema, large right-sided breast implant, normal ROM Skin: warm and dry, intact, no rashes Neuro: CN II-XII intact, no focal deficits Objective Labs 01/20/25 04:55 01/20/25 04:55 Labs: Laboratory Results - last 24 hr 01/19/25 01/20/25 09:34 04:55 WBC 9.6 8.8 RBC 3.57 L 3.59 L Hgb 11.4 L 11.4 L Hct 34.1 L 33.8 L MCV 96 94 MCH 31.9 31.8 MCHC 33.4 33.7 RDW Std Deviation 58.4 H 56.9 H Plt Count 265 271 Neut % (Auto) 84 H 69 Lymph % (Auto) 10 22 [place] % (Auto) 5 7 Eos % (Auto) 0 1 Baso % (Auto) 1 1 Neut # (Auto) 8.1 H 6.0 Lymph # (Auto) 1.0 1.9 [place] # (Auto) 0.4 0.6 Eos # (Auto) 0.0 0.1 Baso # (Auto) 0.1 0.1 Immature Gran # (Auto) 0.05 H 0.02 H Absolute Nucleated RBC 0.00 0.00 Immature Gran % 1 H 0 Nucleated RBC % 0 0 Sodium 146 H Potassium 4.3 D Chloride 112 H Carbon Dioxide 20.2 Anion Gap 14 BUN 80 H Creatinine 4.1 H* Estim Creat Clear Calc 11.8 L eGFR 11 L* BUN/Creatinine Ratio 20 Glucose 82 D Calculated Osmolality 313 H Calcium 7.6 L Corrected Calcium 8.0 L Phosphorus 4.8 Magnesium 2.3 Total Bilirubin 0.3 AST 16 ALT 26 Alkaline Phosphatase 88 Total Protein 5.7 Albumin 3.5 Globulin 2.2 L Albumin/Globulin Ratio 1.6 ABG Interpretation ABG results: 01/18/25 01/18/25 09:50 13:43 VBG pH 7.11 L 7.17 L VBG pCO2 50 39 D VBG pO2 38 57 VBG Base Excess -14 L -14 L Quality Measures Quality Measures VTE prophylaxis Advance care planning discussed with:: patient Assessment & Plan Assessment Current Active Medications: Generic Name Dose Route Start Last Admin Trade Name Freq PRN Reason Stop Dose Admin Acetaminophen 650 mg 01/18/25 14:24 Acetaminophen 325 Mg Tablet PO 02/17/25 14:23 Q6H PRN Fever >100.4 or pain 1-3 Albuterol/Ipratropium 3 ml 01/18/25 14:28 Albuterol/Ipratropium (Duoneb) Rt Dee 3 Ml Nebu INH 02/17/25 14:27 Q2HR PRN SHORTNESS OF BREATH OR WHEEZE Amlodipine Besylate 10 mg 01/18/25 14:30 01/20/25 08:06 Amlodipine Besylate 5 Mg Tablet PO 02/17/25 14:29 10 mg QDAY KENNEDY Administration Bumetanide 2 mg 01/19/25 09:00 01/20/25 08:04 Bumetanide Inj 0.25 Mg/Ml Vial 4 Ml IVP 02/18/25 08:59 Not Given QDAY KENNEDY Carvedilol 12.5 mg 01/20/25 08:00 01/20/25 08:06 Carvedilol 12.5 Mg Tablet PO 02/19/25 07:59 12.5 mg BIDWM KENNEDY Administration Citric Acid/Sodium Citrate 60 ml 01/19/25 21:00 01/20/25 09:15 Citric Acid/Sodium Citr 15 Ml Udc (Bicitra) PO 02/18/25 20:59 60 ml BID KENNEDY Administration Docusate Sodium 100 mg 01/18/25 14:24 Docusate Sod 100 Mg Capsule PO 02/17/25 14:23 QDAY PRN CONSTIPATION Protocol Heparin Sodium (Porcine) 5,000 unit 01/18/25 21:00 01/20/25 08:05 Heparin Sod Inj 5000 Unit/Ml Vial SC 02/01/25 20:59 5,000 unit Q12HR KENNEDY Administration Hydralazine HCl 10 mg 01/18/25 20:56 Hydralazine Inj 20 Mg/Ml Vial IV 02/17/25 20:59 Q6H PRN SBP > 180 and HR <110 Ondansetron HCl 4 mg 01/18/25 14:24 Ondansetron Inj 2 Mg/Ml Inj 2 Ml IV 02/17/25 14:23 Q6H PRN NAUSEA OR VOMITING Protocol Sennosides 1 tab 01/18/25 14:24 Senna Tablet PO 02/17/25 14:23 QDAY PRN constipation Protocol Plan Johana Freed is a 69-year-old female with a past medical history of 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 Cardiology consulted for component of CHF exacerbation and possible cardiorenal syndrome. #Acute decompensated CHF exacerbation #HFmrEF (40-45% on 10/2024) #? Cardiorenal syndrome Presented with shortness of breath with associated PND, orthopnea, and BLE edema. Intermittent SOB for last two weeks but acutely worsened after smoking a joint but u tox negative for THC and positive for amphetamines. On exam, bilateral crackles appreciated but mucous membranes dry and only trace bilateral lower extremity pitting edema. Originally placed on 6 L NC but upon evaluation patient was saturating 94% on RA. CXR showed mild vascular congestion, mild cardiomegaly and BNP > 3000 with mildly elevated troponins though blood pressure noted to be high at 206/135. Given constellation of symptoms, likely patient in acute CHF exacerbation but given that patient is also presenting with worsening renal function, possible cardiorenal syndrome type II (chronic HF leading to progression of CKD). Thus, consider left ventricular assist devices (LVADs) and cardiac resynchronization therapy. If renal function improves with diuretics, supportive of cardiorenal syndrome types 1 and 2. Additionally, patient is still making good urine and thus decreased renal function on labs may be tolerated and still have better outcome (mortality) despite decreased renal function per ESCAPE trial. Anticipate that renal function will return to patient's baseline per EVEREST trial. TTE on 10/2024: EF 45 to 50%, mild global hypokinesis, normal LV size and thickness. Normal RV size and function. RVSP 45 mmHg. Severe biatrial dilatation. Mild MAC. Mild to moderate MR. Moderate TR, mild PI, IVC dilated. TTE on 06/2024: EF 30 to 35%, grade 2/3 diastolic dysfunction, severe systolic dysfunction, severe global hypokinesis. Mild LVH. RVSP 62 mmHg. Moderate PAH, severe biatrial dilatation. Moderate TR. Mild AV sclerosis without stenosis, mild AI, PI, moderate TR, dilated IVC. [facility] 06/2024: Right dominant circulation, LMA without significant stenosis, LAD with mild diffuse disease, LCx with mild diffuse disease, RCA with 30% stenosis in proximal RCA RH 06/2024: Mean right atrial pressure 14 mmHg, right atrial pressure 56 over 19 mmHg, pulmonary artery pressure 56/25 mmHg (mean 35 mmHg), PCWP 19 mmHg. Had good respond to BUMEX in terms of urine output, however Nephrology concerned about over-diuresis giving acute spike in CR. Clinically appears mildy dry with dry oral mucosa,. However no signs of hypotension, tachycardia, orthostatics or dizziness. Nephro considering HD if renal function remains poor. Will hold diuresis and fluid restriction for now. ? Hold BUMEX 2 mg daily ? Strict I's and O's ? Daily weights #NSTEMI type II #Hypertensive crisis #History of hypertension Presented with blood pressure of 206/135 in the setting of recent amphetamine use and mildly elevated troponin that downtrended but peaked at 0.084. Has home Rx of amlodipine 10 mg daily, carvedilol 12.5 mg p.o. twice daily, lisinopril 5 mg daily. ? Recommend to reduce MAP gradually by 10-20% in first hour and 5-15% over next 23 hours ? Or target blood pressure of <180/<120 mmHg for first hour and <160/<110 mmHg for next 23 hours ? On CARVEDILOL 6.25 BID, AMLODIPINE 10 mg q. day ? Holding LISINOPRIL in worsening CKD #Hyperchloremic metabolic acidosis non-anion gap #CKD stage III-IV #SREE #Acute diarrhea #Polysubstance abuse #COPD ? Management of above conditions per primary team/consultants Thank you for the opportunity to participate in the patient's care. Case was discussed with attending, Dr. Mauricio. Jacquie Eduardo DO PGYI Attending Provider Attestation/Addendum 68-year-old female with a past medical history of Mild CAD by cath in June 2024, nonischemic cardiomyopathy with severe systolic congestive heart failure with an EF of 30 to 35% 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 Patient known to me from previous admission in June 2024 when she was diagnosed with severe systolic congestive heart failure. Patient was adequately diuresed and had a left and right heart cardiac catheterization performed at that time which showed mild CAD of 30% stenosis in the LAD. Nonischemic cardiomyopathy was diagnosed mostly secondary to methamphetamine abuse and history of drug abuse. Patient was started on some goal-directed medical therapy but did not follow-up regularly in the office. Patient apparently was admitted again in October 2024 when an echo was repeated and showed EF improved to 40 to 45%. Now she presents again with shortness of breath orthopnea as well as bilateral lower extremity edema. Patient continues to use methamphetamine and says that she has decreased the amount that she is using. Patient social situation is also not good as she was homeless previously a and was living in a trailer but at the present point of time does not have a home. Does not have anyone to take care of her closely or bring her to the appointments. Upon arrival to the ED, BP 206/135, saturating 97% on 6 L nasal cannula but upon evaluation saturating 94% on room air, HR 85, RR 20, afebrile. CBC unremarkable. VBG showed pH 7.17, PCO2 39, PO2 57. CHEM panel showed K 5.1, chloride 117, HCO3 16, BUN 72, creatinine 4, GFR 11, Mg 1.3, AST/ALT 50/51, alk phos 139, BNP > 3000, troponin 0.084 -> 0.077. UA showed 2+ protein, 1+ blood, 6 RBC. U tox positive for amphetamine. CXR showed mild vascular congestion, mildly enlarged cardiac contour, but no pneumonia or pulmonary edema. EKG showed HR 85, NSR, no ST or T wave abnormalities. On examination patient has significant bilateral crackles and has at least 1-2+ edema, puffy face as well as 2 or 6 systolic murmur heard at the apex. Difficult to assess the JVD. Assessment and plan: 1. Acute on chronic systolic CHF exacerbation 2. Acute on chronic kidney disease stage IV 3. Possible cardiorenal syndrome with hepatic congestion from the CHF exacerbation 4. Nonischemic cardiomyopathy mostly secondary to drug abuse 5. Mild CAD by cardiac cath in June 2024 6. Elevated LFTs mostly secondary to hepatic congestion 7. Mildly elevated troponins mostly secondary to NSTEMI type II 8. Hypertensive urgency 9. History of COPD not on home oxygen 10. Polysubstance abuse with meth abuse as well as history of smoking and continues to smoke currently 11. breast cancer s/p bilateral mastectomy 1995 and history of breast implants 12. Homeless Patient presented with shortness of breath, leg swelling as well as orthopnea for the past few weeks. Patient on examination has bilateral crackles and has 1 to + leg edema along with puffy face. Patient is hypoxic requiring 4 to 6 L via nasal cannula on arrival which improved after diuresis. Chest x-ray does show mild vascular congestion and BNP was greater than 3280. Also patient presented with hypertensive urgency with a blood pressure of 206/135. BUN and creatinine were at 72 and 4.1. Patient baseline creatinine around 2.5-2.7 during the last admission even in November 2024 Patient has elevated LFTs also indicating hepatic congestion. Overall clinical picture suggest acute on chronic systolic congestive heart failure with cardiorenal syndrome presentation. Recommend aggressive diuresis with the Lasix 40 mg IV twice daily and can change to Bumex if there is no signs of urine output. Discontinued IV fluids for now. Strict input output, daily weights and 2 g sodium diet. Recent echo reviewed and showed an EF of 40 to 45% with mild systolic dysfunction and previous echo was severe systolic dysfunction with an EF of 30 to 35%. Patient appears to have not been taking her medications including any medications for the heart failure or for her blood pressure and presented with high blood pressure 206/135 mmHg. Recommend to aggressively diurese the patient and start the patient on amlodipine 10 mg once daily for now and will start beta-nidhi later once the patient is adequately diuresed. No BETTY inhibitor's or ARB's in view of the SREE on CKD Patient with acute kidney injury on CKD stage IV. Nephrology was also consulted by the primary team and patient might eventually need dialysis if kidney function does not improve with diuresis. Patient has mildly elevated troponins of 0.07 and 0.08 admitted mostly secondary to acute CHF exacerbation and patient already had echocardiogram which showed mild CAD in June 2024. Patient counseled regarding quitting smoking completely as well as drug abuse Patient counseled and recommended to make sure to show for follow-up appointments with PCP, nephrology as well as cardiology. Recommended social welfare research worker as well as case management consult for placement for this patient and also will need possible rehab at the time of discharge including drug rehab. 01/19/2025-patient did not diurese much last night and will change the patient from Lasix to Bumex 2 mg IV twice a day for now. Continue strict input output, daily weights and 2 g sodium diet. Patient overall appears to be better in the evening around send output was greater than 1 L. Kidney function today showed creatinine of 3.8 and was 4.1 yesterday. Blood pressure is in the range of 160 to 180 mmHg. Continue amlodipine for now and will restart Coreg once patient is diuresed well.Rest of the vitals stable 01/20/2025 - Patient diuresed well with Bumex yesterday and was net negative around 1 to 2 L. BUN is 83 today and creatinine of 4.0 but sodium increased to 146 and chloride is also 112. Leg edema and facial edema has improved considerably but patient appears to be intravascularly depleted but still has some extravascular fluid with 1+ leg edema. Nephrology recommended to hold the Bumex for today and also to hold the fluid restriction and will reevaluate tomorrow morning for further diuresis based on the labs. Management of rest of the medical conditions as per primary team and other consultants. Thank you for the consult and allowing me to participate in the care of the patient. Cardiology will continue to follow. Pillo Mauricio M.D. Interventional Cardiology
--- NOTE | 2025-01-20 09:32 | ESPR_ITS ---
Documentation for date of: 01/20/25 Subjective Subjective Interval history: Ms. Freed is a 69-year-old female past medical history of HFrEF with a EF of 45 to 50%, CKD stage IV, hypertension, COPD, breast cancer status post unilateral mastectomy, meth abuse who came in because of shortness of breath. Patient was seen at bedside in the ED and was shivering because she was feeling cold. She is a poor historian and has been noncompliant with his medications as she states that she only takes her meds on and off. She does reveal that she has been using meth for about a week and the last time was this morning prior to admission. She has also been having episodes of diarrhea that were brown and nonbloody for about a week. She states that she has been eating well however that is questionable as she says her last meal was sometime yesterday in the afternoon and the only thing she had today was a sandwich given to her by the ED. In terms of her symptoms patient's main complaint was a shortness of breath with mild chest pressure and a mild abdominal tenderness however she denies any fevers, chills, flulike symptoms, nausea, vomiting or rashes. Patient does state that she has been having headaches which goes along with her uncontrolled blood pressure. The neurology team was consulted as patient's renal function is worse than usual.Renal ultrasound obtained on September this year showed bilateral renal parenchymal scar formation with right renal cortical thinning. Chloride was elevated at 117 without a bicarb of 16.4. BUN was 72 and creatinine was 4.4 from a baseline of 2.5. Lactic acid was normal at 1.3 however troponins were mildly elevated at 0.077 and BUN was greater than 30-80. UA had 2+ protein without leukocyte esterase and only rare bacteria. U-Tox was positive for meth 01/19/2025: Patient seen examined at bedside, resting comfortably. Patient endorses shortness of breath with mild distress, however saturating well on room air. Otherwise denies fever, chills, chest pain. Hemoglobin 11.4, chloride 115, bicarb 15 (decreased from yesterday). BUN 61, creatinine 3.8, eGFR 12, kidney function improving. Phosphorus 5.7, magnesium 1.8. On exam patient had bilateral edema and crackles in lungs. Suspect fluid overload, recommend diuretics. 01/20/2025: Patient seen and examined at bedside, resting comfortably. Patient continues to endorse shortness of breath, however improved from yesterday subjectively. Patient denies fever, chills, chest pain, nausea, vomiting. WBC 8.8, hemoglobin 11.4. Patient hypernatremic 146, asymptomatic. BUN 23, creatinine 4.0, EGFR 19. Kidney function worsening, patient has improved crackles and decreased edema, suspect overdiuresis. Recommend holding diuretics and pausing fluid restriction. Exam Vital Signs Temp Pulse Resp BP Pulse Ox O2 Del Method O2 Flow Rate 97.0 F 70 15 180/106 H 97 Room Air 2 01/20/25 08:00 01/20/25 08:06 01/20/25 08:00 01/20/25 08:06 01/20/25 08:00 01/20/25 08:00 01/19/25 16:00 Narrative Exam Constitutional: elderly female Head: Normocephalic/Atraumatic Eyes: PERRL, no conjunctival injection, symmetrical lids. ENMT: Dry mucous Membranes, No trauma or injury. CVS: RRR, S1 and S2 present, no murmurs, rubs or gallops . RESP: no SOB, no rales, rhonchi or wheezing. No respiratory Distress. There is a right breast implant and a scar in the left chest wall from mastectomy. bibasilar crackles, mild, improved. GI: Normal BS, Nontender/Nondistended. MSK: Full range of motion, No trauma or deformities or masses. 2+ pitting edema BLE. Skin: Warm to touch, Dry. No rashes or lesions. No hematomas Neuro: platen press feeder II-XII grossly intact. Sensation grossly intact. Psych: (AAO) x3 . Appropriate mood and affect. Objective Labs 01/20/25 04:55 01/20/25 04:55 Labs: Laboratory Results - last 24 hr 01/19/25 01/20/25 09:34 04:55 WBC 9.6 8.8 RBC 3.57 L 3.59 L Hgb 11.4 L 11.4 L Hct 34.1 L 33.8 L MCV 96 94 MCH 31.9 31.8 MCHC 33.4 33.7 RDW Std Deviation 58.4 H 56.9 H Plt Count 265 271 Neut % (Auto) 84 H 69 Lymph % (Auto) 10 22 [place] % (Auto) 5 7 Eos % (Auto) 0 1 Baso % (Auto) 1 1 Neut # (Auto) 8.1 H 6.0 Lymph # (Auto) 1.0 1.9 [place] # (Auto) 0.4 0.6 Eos # (Auto) 0.0 0.1 Baso # (Auto) 0.1 0.1 Immature Gran # (Auto) 0.05 H 0.02 H Absolute Nucleated RBC 0.00 0.00 Immature Gran % 1 H 0 Nucleated RBC % 0 0 Sodium 146 H Potassium 4.3 D Chloride 112 H Carbon Dioxide 20.2 Anion Gap 14 BUN 80 H Creatinine 4.1 H* Estim Creat Clear Calc 11.8 L eGFR 11 L* BUN/Creatinine Ratio 20 Glucose 82 D Calculated Osmolality 313 H Calcium 7.6 L Corrected Calcium 8.0 L Phosphorus 4.8 Magnesium 2.3 Total Bilirubin 0.3 AST 16 ALT 26 Alkaline Phosphatase 88 Total Protein 5.7 Albumin 3.5 Globulin 2.2 L Albumin/Globulin Ratio 1.6 ABG Interpretation ABG results: 01/18/25 01/18/25 09:50 13:43 VBG pH 7.11 L 7.17 L VBG pCO2 50 39 D VBG pO2 38 57 VBG Base Excess -14 L -14 L Quality Measures Quality Measures VTE prophylaxis Advance care planning discussed with:: patient Assessment & Plan Assessment Current Active Medications: Generic Name Dose Route Start Last Admin Trade Name Freq PRN Reason Stop Dose Admin Acetaminophen 650 mg 01/18/25 14:24 Acetaminophen 325 Mg Tablet PO 02/17/25 14:23 Q6H PRN Fever >100.4 or pain 1-3 Albuterol/Ipratropium 3 ml 01/18/25 14:28 Albuterol/Ipratropium (Duoneb) Rt Dee 3 Ml Nebu INH 02/17/25 14:27 Q2HR PRN SHORTNESS OF BREATH OR WHEEZE Amlodipine Besylate 10 mg 01/18/25 14:30 01/20/25 08:06 Amlodipine Besylate 5 Mg Tablet PO 02/17/25 14:29 10 mg QDAY KENNEDY Administration Bumetanide 2 mg 01/19/25 09:00 01/20/25 08:04 Bumetanide Inj 0.25 Mg/Ml Vial 4 Ml IVP 02/18/25 08:59 Not Given QDAY KENNEDY Carvedilol 12.5 mg 01/20/25 08:00 01/20/25 08:06 Carvedilol 12.5 Mg Tablet PO 02/19/25 07:59 12.5 mg BIDWM KENNEDY Administration Citric Acid/Sodium Citrate 60 ml 01/19/25 21:00 01/20/25 09:15 Citric Acid/Sodium Citr 15 Ml Udc (Bicitra) PO 02/18/25 20:59 60 ml BID KENNEDY Administration Docusate Sodium 100 mg 01/18/25 14:24 Docusate Sod 100 Mg Capsule PO 02/17/25 14:23 QDAY PRN CONSTIPATION Protocol Heparin Sodium (Porcine) 5,000 unit 01/18/25 21:00 01/20/25 08:05 Heparin Sod Inj 5000 Unit/Ml Vial SC 02/01/25 20:59 5,000 unit Q12HR KENNEDY Administration Hydralazine HCl 10 mg 01/18/25 20:56 Hydralazine Inj 20 Mg/Ml Vial IV 02/17/25 20:59 Q6H PRN SBP > 180 and HR <110 Ondansetron HCl 4 mg 01/18/25 14:24 Ondansetron Inj 2 Mg/Ml Inj 2 Ml IV 02/17/25 14:23 Q6H PRN NAUSEA OR VOMITING Protocol Sennosides 1 tab 01/18/25 14:24 Senna Tablet PO 02/17/25 14:23 QDAY PRN constipation Protocol Plan 69-year-old female past medical history of HFrEF with a EF of 45 to 50%, CKD stage IV, hypertension, COPD, breast cancer status post unilateral mastectomy, meth abuse admitted for acute hypoxic respiratory failure and SREE #SREE on CKD #History of CKD stage IV #Non anion gap metabolic acidosis #Hypernatremia, asymptomatic Patient presents scented with elevated creatinine of 4.0 from a baseline of 2.5 and a BUN of 72. Patient has been noncompliant with her medications She has not been taking her Lasix and her BNP is 3280. However clinically patient is dehydrated with dry mucous membranes, decreased capillary refill. Patient received 1 dose of Lasix in the ER. Patient's lactic acid was normal at 1.3. Chloride was 117 and bicarb was 16.4 with a VBG showing a pH of 7.17 She has a history of HFrEF with previous echo showing 45 to 50% EF. Likely underlying cardiorenal syndrome Acidosis likely from persistent GI loses Patient kidney function is improving, however bicarb levels decreased. Patient received IV fluids yesterday, appears volume overloaded today. Crackles, edema improved notably. However kidney function has worsened, patient now hypernatremic. Suspect overdiuresis, patient receiving 2 mg Bumex IV twice daily. Held morning dose of Bumex, recommend pausing diuresis and fluid restriction. ? Recommend pausing diuresis and fluid restriction ? Trend renal function ? Avoid nephrotoxic medications ? Control hypertension ? Strict ZAKI's - Agree with Bicitra 30 mL p.o. twice daily #Hypertensive emergency #Troponinemia #HFrEF exacerbation #Meth abuse #COPD #Diarrhea ? Managed as per primary team Thank you for allowing us to be part of patient care during her time at [facility] Plan of care discussed with attending Dr. Pulido. Reji Elliott MD PGY?1 Attending Provider Attestation/Addendum Patient currently seen and examined with resident physician Dr. Mac. Note reviewed, agree with findings and recommendations. Clinically patient looks rather hypovolemic with 2 mg of Bumex and less than a liter fluid restriction. Spoke to Dr. Rocio Casper-hold diuretics, fluid restriction today and see if there is any improvement in renal function. If patient goes back into fluid overload probably she has cardiorenal syndrome and might benefit from ultrafiltration. She understood and agreed with the plan of care.. Echocardiogram 40 to 45%. Continue with diuretics. Added Bicitra Care discussed with primary team.
[2025-01-20] MEDS: hydrALAZINE HCL 25 MG TABLET PO (13:51)
--- NOTE | 2025-01-20 15:10 | ESPR_ITS ---
Documentation for date of: 01/20/25 Subjective Subjective Interval history: Patient seen today at the bedside found awake, alert, oriented x 3. Vital signs and labs reviewed. Kidney function continues to worsen. Spoke to director of state recommends holding off diuresis and encourage oral fluid intake and to reevaluate tomorrow. Blood pressure continues to remain elevated started on hydralazine 25 mg 3 times daily will increase as tolerated. Exam Vital Signs Temp Pulse Resp BP Pulse Ox O2 Del Method O2 Flow Rate 97.1 F 76 14 177/85 H 94 L Room Air 2 01/20/25 12:00 01/20/25 13:51 01/20/25 12:00 01/20/25 13:51 01/20/25 12:00 01/20/25 12:00 01/20/25 12:00 Narrative Exam Physical Exam GENERAL: NAD, AAOx3 HEENT: Moist mucosa. Eyes open, symmetrical, & clear CARDIO: Heart RRR, no obvious murmurs, right breast implant and a scar in the left chest wall from mastectomy PULM: No noted coughing/dyspnea, minimal crackles bilaterally GI: Abdomen soft, nondistended, no pain on palpation. BSx4 SKIN/MSK/EXT: No wounds/rashes/edema/amputations, no pain on palpation. Pedal pulses present B/L NEURO: AAOx3, no focal neuro deficits, able to move all 4 extremities Objective Labs 01/26/25 05:57 01/26/25 05:57 Labs: Laboratory Results - last 24 hr 01/20/25 04:55 WBC 8.8 RBC 3.59 L Hgb 11.4 L Hct 33.8 L MCV 94 MCH 31.8 MCHC 33.7 RDW Std Deviation 56.9 H Plt Count 271 Neut % (Auto) 69 Lymph % (Auto) 22 [place] % (Auto) 7 Eos % (Auto) 1 Baso % (Auto) 1 Neut # (Auto) 6.0 Lymph # (Auto) 1.9 [place] # (Auto) 0.6 Eos # (Auto) 0.1 Baso # (Auto) 0.1 Immature Gran # (Auto) 0.02 H Absolute Nucleated RBC 0.00 Immature Gran % 0 Nucleated RBC % 0 Sodium 146 H Potassium 4.3 D Chloride 112 H Carbon Dioxide 20.2 Anion Gap 14 BUN 80 H Creatinine 4.1 H* Estim Creat Clear Calc 11.8 L eGFR 11 L* BUN/Creatinine Ratio 20 Glucose 82 D Calculated Osmolality 313 H Calcium 7.6 L Corrected Calcium 8.0 L Phosphorus 4.8 Magnesium 2.3 Total Bilirubin 0.3 AST 16 ALT 26 Alkaline Phosphatase 88 Total Protein 5.7 Albumin 3.5 Globulin 2.2 L Albumin/Globulin Ratio 1.6 ABG Interpretation ABG results: 01/18/25 01/18/25 09:50 13:43 VBG pH 7.11 L 7.17 L VBG pCO2 50 39 D VBG pO2 38 57 VBG Base Excess -14 L -14 L Quality Measures Quality Measures VTE prophylaxis Advance care planning discussed with:: patient Assessment & Plan Assessment Current Active Medications: Generic Name Dose Route Start Last Admin Trade Name Freq PRN Reason Stop Dose Admin Acetaminophen 650 mg 01/18/25 14:24 Acetaminophen 325 Mg Tablet PO 02/17/25 14:23 Q6H PRN Fever >100.4 or pain 1-3 Albuterol/Ipratropium 3 ml 01/18/25 14:28 Albuterol/Ipratropium (Duoneb) Rt Dee 3 Ml Nebu INH 02/17/25 14:27 Q2HR PRN SHORTNESS OF BREATH OR WHEEZE Amlodipine Besylate 10 mg 01/18/25 14:30 01/20/25 08:06 Amlodipine Besylate 5 Mg Tablet PO 02/17/25 14:29 10 mg QDAY KENNEDY Administration Bumetanide 2 mg 01/19/25 09:00 01/20/25 08:04 Bumetanide Inj 0.25 Mg/Ml Vial 4 Ml IVP 02/18/25 08:59 Not Given QDAY KENNEDY Carvedilol 12.5 mg 01/20/25 08:00 01/20/25 08:06 Carvedilol 12.5 Mg Tablet PO 02/19/25 07:59 12.5 mg BIDWM KENNEDY Administration Citric Acid/Sodium Citrate 60 ml 01/19/25 21:00 01/20/25 09:15 Citric Acid/Sodium Citr 15 Ml Udc (Bicitra) PO 02/18/25 20:59 60 ml BID KENNEDY Administration Docusate Sodium 100 mg 01/18/25 14:24 Docusate Sod 100 Mg Capsule PO 02/17/25 14:23 QDAY PRN CONSTIPATION Protocol Heparin Sodium (Porcine) 5,000 unit 01/18/25 21:00 01/20/25 08:05 Heparin Sod Inj 5000 Unit/Ml Vial SC 02/01/25 20:59 5,000 unit Q12HR KENNEDY Administration Hydralazine HCl 25 mg 01/20/25 14:00 01/20/25 13:51 Hydralazine Hcl 25 Mg Tablet PO 02/19/25 13:59 25 mg TID KENNEDY Administration Ondansetron HCl 4 mg 01/18/25 14:24 Ondansetron Inj 2 Mg/Ml Inj 2 Ml IV 02/17/25 14:23 Q6H PRN NAUSEA OR VOMITING Protocol Sennosides 1 tab 01/18/25 14:24 Senna Tablet PO 02/17/25 14:23 QDAY PRN constipation Protocol Plan 69 y/o F with PMHx significant for hypertension, CKD, breast cancer s/p resection, COPD, CHF presents with chief complaint of shortness of breath, negative for metabolic acidosis with SREE on CKD. #Hyperchloremic metabolic acidosis non-anion gap #SREE #Acute diarrhea #Hypertensive urgency-improving Patient has acidosis as stated. Bicarb 16.4, chloride 117, lactic acid 0.3, VBG showed pH 7.17, pCO2 39. Patient reports 5-day history of diarrhea, potential source. Differential for SREE includes cardiorenal syndrome, hypertensive emergency, and dehydration secondary to diarrhea. BNP greater than 3000. Patient appears dry on exam, dry mucous membranes, no edema, no crackles in lung. Cardiology and nephrology consulted. Patient was extremely hypertensive on presentation, 220/142. Blood pressure significantly proved with minimal intervention, 164/86. Patient denies headaches, blurry vision, chest pain. Blood pressure after starting carvedilol 122/79, HR 79 - Nephrology consulted, appreciate recommendations ? Bicitra dose adjusted to 60 twice daily ? on Coreg 12.5mg twice daily - started on hydralazine 25mg TID, will increase as tolerated - Avoid nephrotoxins - Renally dose medication - Slow decrease in blood pressure. #Acute decompensated heart failure #HFmEF [EF 45-50%] #? Cardiorenal syndrome #Elevated troponins On presentation patient came in with shortness of breath associated with paroxysmal nocturnal dyspnea, orthopnea and mild lower extremity edema. Patient does have history of smoking THC and methamphetamine use. On admission patient had bilateral crackles however mucous membranes were dry and pitting edema was trace. Chest x-ray showed some vascular congestion and had a brain natriuretic peptide of over 3000 with mildly elevated troponins. Patient is currently saturating 98% on room air Renal function continues poor even after fluids, symptoms seem to point to type II cardiorenal syndrome, spoke to cardiology service recommended starting patient on diuresis ? On Bumex 2 mg daily- on hold per nephrology reccs ? Fluid restriction 1500 cc- on hold per nephrology reccs ? Strict ins and outs ? Daily weights ? Keep K >4, Mg >2 ? Cardiology consulted, appreciate recommendations #COPD #Hypertension Patient has history as stated. Patient does not take any of her meds. On presentation, patient BNP greater than 3000, however appears clinically dry on exam. Troponin 0.077, lower than normal for patient. Patient complains of shortness of breath, but is not appear to be having COPD exacerbation, no wheezing on exam, no increased cough or sputum production. Potential cardiorenal syndrome given SREE. Aiming for slow decrease in blood pressure given hypertensive urgency versus emergency as above. ? Started on carvedilol 6.25 mg twice daily ? Continue amlodipine 10 mg daily ? DuoNebs ordered as needed #Polysubstance abuse Patient has history of polysubstance abuse, including methamphetamine, alcohol, marijuana. Patient denies alcohol use, but admits to meth and marijuana. U tox positive for meth. - Monitor for signs of withdrawal - Pharmaceutical Sales Specialist patient regarding resources for addiction Plan of care discussed with my senior Dr. Grossman and my attending Dr. Gimenez. Anuel Thomas MD PGY-1 DVT prophylaxis: Heparin GI prophylaxis: None Diet: Cardiac, renal, fluid restrict 1500 cc-hold Lines: Peripheral IV Code status: Full code Patient examined and case discussed with the team including attending physician. Note reviewed, I agree with the care plan as documented. Ms. Freed is a 69-year-old female admitted for decompensation of CHF, hypertensive urgency, SREE and possible cardiorenal syndrome in the setting of HFmrEF 45 to 50%. She was initially treated with diuretics as per cardiology recommendations, which were discontinued due to worsening renal function: Creatinine 4.1 (baseline 3) and GFR 11 (19?20 baseline). As per nephrology recommendations, patient was removed from fluid restriction and oral intake permitted. Patient remains at baseline mentation, tolerating diet but has minimal urine output. Nephrology does not want HD at this time, will continue to observe with oral intake. Anticipate improvement and possible discharge in the next 48 or 72 hours. Cardiology and nephrology to continue to follow closely. - Ayush Grossman MD, PGY 2 Disclaimer: The document may contain phonetic/typographic errors due to voice recognition software. These errors are purely due to imperfections in the software program and should not be misconstrued in any way to compromise the substance of the patient's medical care during this visit. L Attending Provider Attestation/Addendum 69-year-old female with multiple comorbidities including breast cancer status post resection, hypertension, hyperlipidemia, CKD and heart failure with reduced ejection fraction who presented with acute systolic heart failure exacerbation and acute kidney injury superimposed on CKD. During course of hospitalization, patient continued to have worsening kidney function with associated metabolic acidosis and concern for cardiorenal syndrome. Plan to continue IV diuretic therapy and appreciate nephrology input. Per nephrology, if it does not improve in kidney function then he might need hemodialysis.I reviewed above note and agree with findings and plans. I have also personally examined the patient with medicine team and went over assessment and plan with medical team including senior internet sales consultant and resident physician.
[2025-01-20 19:45] LABS: Stool for WBCs Negative (Negative)
[2025-01-20] MEDS: hydrALAZINE HCL 25 MG TABLET 50 MG PO (21:07)
[2025-01-20] MEDS: ACETAMINOPHEN 325 MG TABLET 650 MG PO (22:20)
[2025-01-20] MEDS: SUCRALFATE 1 GM TABLET PO (22:20)
[2025-01-20] MEDS: PANTOPRAZOLE INJ 40 MG VIAL IV (22:20)
[2025-01-21] VITALS (12 sets, daily range): BP systolic 148–192; BP diastolic 71–100; PULSE 69–81; RESP 16–94; TEMP 36.2–36.7; O2SAT 90–97; BMI 25.8; BMI 25.7
[2025-01-21] MEDS: hydrALAZINE HCL 25 MG TABLET 50 MG PO ×3 (05:36→22:02)
[2025-01-21 05:38] LABS: Basophils # (Auto) 0.1 Thou/mm3 (0.0-0.2); Basophils % (Auto) 1 % (0-2.5); Eosinophils # (Auto) 0.2 Thou/mm3 (0.0-0.5); Eosinophils % (Auto) 2 % (0-10); Hematocrit 34.2 % (36.0-46.0); Hemoglobin 11.3 g/dL (12.0-16.0); Immature Granulocytes % (Auto) 0 % (0-0); Immature Granulocytes Auto 0.02 Thou/mm3 (0.00-0.00); Lymphocytes # (Auto) 1.7 Thou/mm3 (1.0-4.8); Lymphocytes % (Auto) 22 % (10-50); Mean Corpuscular Hemoglobin 31.6 pg (25.0-35.0); Mean Corpuscular Volume 96 fL (80-100); Monocytes # (Auto) 0.6 Thou/mm3 (0.0-0.8); Monocytes % (Auto) 8 % (0-12); Neutrophils # (Auto) 5.2 Thou/mm3 (1.8-7.7); Neutrophils % (Auto) 67 % (37-80); Nucleated Red Blood Cell % 0 /100 WBC (0); Platelet Count 228 Thou/mm3 (140-440); RDW Standard Deviation 57.1 fL (36.4-46.3); Red Blood Count 3.58 Miln/mm3 (4.00-5.20); White Blood Count 7.8 Thou/mm3 (3.6-11.0)
[2025-01-21 06:02] LABS: Alanine Aminotransferase 19 U/L (10-49); Albumin, Serum 3.3 gm/dL (3.4-4.8); Albumin/Globulin Ratio 1.5 (1.2-2.2); Alkaline Phosphatase 100 U/L (46-116); Anion Gap 13 (7-16); Aspartate Amino Transferase 17 U/L (0-34); BUN/Creatinine Ratio 21 Ratio (12-20); Bilirubin,Total < 0.2 mg/dL (0.3-1.2); Blood Urea Nitrogen 83 mg/dL (9-23); Calcium 7.1 mg/dL (8.3-10.6); Calcium (Corrected) 7.7 mg/dL (8.5-10.1); Carbon Dioxide 23.2 mMol/L (20.0-31.0); Chloride 110 mMol/L (98-107); Estimated Creatinine Clearance 12.2 mL/min (>60); Globulin 2.2 gm/dL (2.3-3.5); Glucose 113 mg/dL (74-106); Magnesium 1.8 mg/dL (1.6-2.6); Osmolality,Calculated 316 (275-295); Phosphorous 4.1 mg/dL (2.4-5.1); Potassium 4.4 mMol/L (3.4-5.1); Sodium 146 mMol/L (136-145); Total Protein 5.5 gm/dL (5.7-8.2); eGFR 11 See Note
[2025-01-21] MEDS: HEPARIN SOD INJ 5000 UNIT/ML VIAL SC ×2 (08:56→20:34)
[2025-01-21] MEDS: NIFEdipine XL 30 MG TABCR PO (08:57)
[2025-01-21] MEDS: CALCIUM CARBONATE 600 MG TABLET PO ×2 (08:57→20:34)
[2025-01-21] MEDS: FAMOTIDINE INJ 10 MG/ML VIAL 2 ML 20 MG IVP ×2 (08:57→20:33)
[2025-01-21] MEDS: carVEDILOL 12.5 MG TABLET PO ×2 (08:57→17:18)
[2025-01-21] MEDS: CITRIC ACID/SODIUM CITR 15 ML UDC (BICITRA) 60 ML PO ×2 (09:49→20:34)
--- NOTE | 2025-01-21 10:47 | PD.RESPRO ---
Documentation for date of: 01/21/25 Subjective Subjective Interval history: Ms. Freed is a 69-year-old female past medical history of HFrEF with a EF of 45 to 50%, CKD stage IV, hypertension, COPD, breast cancer status post unilateral mastectomy, meth abuse who came in because of shortness of breath. Patient was seen at bedside in the ED and was shivering because she was feeling cold. She is a poor historian and has been noncompliant with his medications as she states that she only takes her meds on and off. She does reveal that she has been using meth for about a week and the last time was this morning prior to admission. She has also been having episodes of diarrhea that were brown and nonbloody for about a week. She states that she has been eating well however that is questionable as she says her last meal was sometime yesterday in the afternoon and the only thing she had today was a sandwich given to her by the ED. In terms of her symptoms patient's main complaint was a shortness of breath with mild chest pressure and a mild abdominal tenderness however she denies any fevers, chills, flulike symptoms, nausea, vomiting or rashes. Patient does state that she has been having headaches which goes along with her uncontrolled blood pressure. The neurology team was consulted as patient's renal function is worse than usual.Renal ultrasound obtained on September this year showed bilateral renal parenchymal scar formation with right renal cortical thinning. Chloride was elevated at 117 without a bicarb of 16.4. BUN was 72 and creatinine was 4.4 from a baseline of 2.5. Lactic acid was normal at 1.3 however troponins were mildly elevated at 0.077 and BUN was greater than 30-80. UA had 2+ protein without leukocyte esterase and only rare bacteria. U-Tox was positive for meth 01/19/2025: Patient seen examined at bedside, resting comfortably. Patient endorses shortness of breath with mild distress, however saturating well on room air. Otherwise denies fever, chills, chest pain. Hemoglobin 11.4, chloride 115, bicarb 15 (decreased from yesterday). BUN 61, creatinine 3.8, eGFR 12, kidney function improving. Phosphorus 5.7, magnesium 1.8. On exam patient had bilateral edema and crackles in lungs. Suspect fluid overload, recommend diuretics. 01/20/2025: Patient seen and examined at bedside, resting comfortably. Patient continues to endorse shortness of breath, however improved from yesterday subjectively. Patient denies fever, chills, chest pain, nausea, vomiting. WBC 8.8, hemoglobin 11.4. Patient hypernatremic 146, asymptomatic. BUN 23, creatinine 4.0, EGFR 19. Kidney function worsening, patient has improved crackles and decreased edema, suspect overdiuresis. Recommend holding diuretics and pausing fluid restriction. 01/21/2025: Patient seen examined at bedside. Patient mildly distressed, worsening shortness of breath. Denies fever, chills, chest pain, nausea, vomiting. WBC 7.8, hemoglobin 11.3, sodium 146, chloride 110, bicarb 23.2. BUN 83, creatinine 4.0, EGFR 11. Patient had 5 L of oral intake yesterday, 1.5 L urine output. Suspect cardiorenal syndrome, recommend resuming diuretics and fluid restriction. Discussed possibility of needing dialysis with patient, if kidneys do not improve. Exam Vital Signs Temp Pulse Resp BP Pulse Ox O2 Del Method O2 Flow Rate 97.1 F 72 16 166/100 H 92 L Room Air 2 01/21/25 08:00 01/21/25 08:57 01/21/25 08:00 01/21/25 08:57 01/21/25 08:00 01/21/25 04:00 01/20/25 12:00 Narrative Exam Constitutional: elderly female, mild distress Head: Normocephalic/Atraumatic Eyes: PERRL, no conjunctival injection, symmetrical lids. ENMT: Dry mucous Membranes, No trauma or injury. CVS: RRR, S1 and S2 present, no murmurs, rubs or gallops . RESP: no SOB, no rales, rhonchi or wheezing. No respiratory Distress. There is a right breast implant and a scar in the left chest wall from mastectomy. bibasilar crackles, mild. GI: Normal BS, Nontender/Nondistended. MSK: Full range of motion, No trauma or deformities or masses. 2+ pitting edema BLE. Skin: Warm to touch, Dry. No rashes or lesions. 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 Sensation grossly intact. Psych: (AAO) x3 . Appropriate mood and affect. Objective Labs 01/22/25 05:03 01/22/25 05:03 Labs: Laboratory Results - last 24 hr 01/20/25 01/21/25 15:45 04:25 WBC 7.8 RBC 3.58 L Hgb 11.3 L Hct 34.2 L MCV 96 MCH 31.6 MCHC 33.0 RDW Std Deviation 57.1 H Plt Count 228 D Neut % (Auto) 67 Lymph % (Auto) 22 [place] % (Auto) 8 Eos % (Auto) 2 Baso % (Auto) 1 Neut # (Auto) 5.2 Lymph # (Auto) 1.7 [place] # (Auto) 0.6 Eos # (Auto) 0.2 Baso # (Auto) 0.1 Immature Gran # (Auto) 0.02 H Absolute Nucleated RBC 0.00 Immature Gran % 0 Nucleated RBC % 0 Sodium 146 H Potassium 4.4 Chloride 110 H Carbon Dioxide 23.2 Anion Gap 13 BUN 83 H Creatinine 4.0 H Estim Creat Clear Calc 12.2 L eGFR 11 L* BUN/Creatinine Ratio 21 H Glucose 113 H Calculated Osmolality 316 H Calcium 7.1 L Corrected Calcium 7.7 L Phosphorus 4.1 Magnesium 1.8 Total Bilirubin < 0.2 L AST 17 ALT 19 Alkaline Phosphatase 100 Total Protein 5.5 L Albumin 3.3 L Globulin 2.2 L Albumin/Globulin Ratio 1.5 Stool for White Cells Negative ABG Interpretation ABG results: 01/18/25 01/18/25 09:50 13:43 VBG pH 7.11 L 7.17 L VBG pCO2 50 39 D VBG pO2 38 57 VBG Base Excess -14 L -14 L Quality Measures Quality Measures VTE prophylaxis Advance care planning discussed with:: patient Assessment & Plan Assessment Current Active Medications: Generic Name Dose Route Start Last Admin Trade Name Freq PRN Reason Stop Dose Admin Acetaminophen 650 mg 01/18/25 14:24 Acetaminophen 325 Mg Tablet PO 02/17/25 14:23 Q6H PRN Fever >100.4 or pain 1-3 Albuterol/Ipratropium 3 ml 01/18/25 14:28 Albuterol/Ipratropium (Duoneb) Rt Dee 3 Ml Nebu INH 02/17/25 14:27 Q2HR PRN SHORTNESS OF BREATH OR WHEEZE Bumetanide 2 mg 01/19/25 09:00 01/20/25 08:04 Bumetanide Inj 0.25 Mg/Ml Vial 4 Ml IVP 02/18/25 08:59 Not Given QDAY KENNEDY Calcium Carbonate 600 mg 01/21/25 09:00 01/21/25 08:57 Calcium Carbonate 600 Mg Tablet PO 01/22/25 08:59 600 mg BID KENNEDY Administration Carvedilol 12.5 mg 01/20/25 08:00 01/21/25 08:57 Carvedilol 12.5 Mg Tablet PO 02/19/25 07:59 12.5 mg BIDWM KENNEDY Administration Citric Acid/Sodium Citrate 60 ml 01/19/25 21:00 01/21/25 09:49 Citric Acid/Sodium Citr 15 Ml Udc (Bicitra) PO 02/18/25 20:59 60 ml BID KENNEDY Administration Docusate Sodium 100 mg 01/18/25 14:24 Docusate Sod 100 Mg Capsule PO 02/17/25 14:23 QDAY PRN CONSTIPATION Protocol Famotidine 20 mg 01/21/25 09:00 01/21/25 08:57 Famotidine Inj 10 Mg/Ml Vial 2 Ml IVP 02/20/25 08:59 20 mg BID KENNEDY Administration Heparin Sodium (Porcine) 5,000 unit 01/18/25 21:00 01/21/25 08:56 Heparin Sod Inj 5000 Unit/Ml Vial SC 02/01/25 20:59 5,000 unit Q12HR KENNEDY Administration Hydralazine HCl 50 mg 01/20/25 22:00 01/21/25 05:36 Hydralazine Hcl 25 Mg Tablet PO 02/19/25 21:59 50 mg TID KENNEDY Administration Metoclopramide HCl 5 mg 01/21/25 08:14 Metoclopramide Inj 5 Mg/Ml Vial 2 Ml IVP 02/20/25 08:14 Q6HR PRN nausea or vomiting Protocol Nifedipine 30 mg 01/21/25 09:00 01/21/25 08:57 Nifedipine Xl 30 Mg Tabcr PO 02/20/25 08:59 30 mg QDAY KENNEDY Administration Plan 69-year-old female past medical history of HFrEF with a EF of 45 to 50%, CKD stage IV, hypertension, COPD, breast cancer status post unilateral mastectomy, meth abuse admitted for acute hypoxic respiratory failure and SREE #SREE on CKD #History of CKD stage IV #Non anion gap metabolic acidosis #Hypernatremia, asymptomatic Patient presents scented with elevated creatinine of 4.0 from a baseline of 2.5 and a BUN of 72. Patient has been noncompliant with her medications She has not been taking her Lasix and her BNP is 3280. However clinically patient is dehydrated with dry mucous membranes, decreased capillary refill. Patient received 1 dose of Lasix in the ER. Patient's lactic acid was normal at 1.3. Chloride was 117 and bicarb was 16.4 with a VBG showing a pH of 7.17 She has a history of HFrEF with previous echo showing 45 to 50% EF. Likely underlying cardiorenal syndrome Acidosis likely from persistent GI loses Patient kidney function is improving, however bicarb levels decreased. Patient received IV fluids yesterday, appears volume overloaded today. Crackles, edema improved notably. However kidney function has worsened, patient now hypernatremic. Suspect overdiuresis, patient receiving 2 mg Bumex IV twice daily. Held morning dose of Bumex, recommend pausing diuresis and fluid restriction. Patient drinks 5 L of fluid over 24-hour period, with 1.5 L urinary output. No short of breath the following morning with little change in kidney function. ? Recommend 2 L fluid restriction, Bumex 1 mg IV daily ? Trend renal function ? Avoid nephrotoxic medications ? Control hypertension ? Strict ZAKI's - Agree with Bicitra 30 mL p.o. twice daily #Hypertensive emergency #Troponinemia #HFrEF exacerbation #Meth abuse #COPD #Diarrhea ? Managed as per primary team Thank you for allowing us to be part of patient care during her time at [facility] Plan of care discussed with attending Dr. Pulido. Reji Elliott MD PGY?1 Attending Provider Attestation/Addendum Patient currently seen and examined with resident physician Dr. Mac. Note reviewed, agree with findings and recommendations. Clinically patient looks rather hypovolemic with 2 mg of Bumex and less than a liter fluid restriction. Spoke to Dr. Rocio Casper-hold diuretics, fluid restriction today and see if there is any improvement in renal function. If patient goes back into fluid overload probably she has cardiorenal syndrome and might benefit from ultrafiltration. She understood and agreed with the plan of care.. Echocardiogram 40 to 45%. Continue with diuretics. Added Bicitra 01/21/2025 patient drank 5.2 L. More short of breath. Currently seems to be in cardiorenal syndrome. Spoke to Dr. Morris. Resume diuretics, fluid restriction 2 L/day. Had a long conversation with the patient regarding cardiorenal syndrome and need for dialysis if there is no improvement in renal function to maintain euvolemic state. Patient agreed. Will plan for dialysis on Thursday if BUN and creatinine continues to be on the higher side. Care discussed with primary team.
--- NOTE | 2025-01-21 14:03 | PD.RESPRO ---
Documentation for date of: 01/21/25 Subjective Subjective Interval history: Patient is seen and examined at bedside No acute overnight events. Denies any other complaints for now Despite having 5.3 L of oral intake, patient produced only 1500ml in the last 24hrs Vitals are stable except for mildly elevated blood pressure Labs done today showed BUN 83, creatinine 4, sodium 146, chloride 110 Banking And Finance Instructor, Dr. otto is following the patient and recommended to start on Bumex 1 mg IV push daily and is planning to do HD as patient's renal functions are not improving on thursday Exam Vital Signs Temp Pulse Resp BP Pulse Ox O2 Del Method O2 Flow Rate 97.1 F 72 16 166/100 H 92 L Room Air 2 01/21/25 08:00 01/21/25 08:57 01/21/25 08:00 01/21/25 08:57 01/21/25 08:00 01/21/25 04:00 01/20/25 12:00 Narrative Exam General: Awake. HEENT: Normocephalic, atraumatic, mucous membranes moist. Heart: Regular rate and rhythm, no murmurs. Lungs: Clear to auscultation with no wheezing or crackles. Right breast implant with mastectomy of left Abdomen: Soft, nondistended, nontender, positive bowel sounds. ?No guarding or rebound tenderness. Neurologic: Alert and oriented x3, no gross neurological deficit, and patient able to move all 4 extremities. Extremities: No edema. Left upper extremity swelling Skin: No rash or ecchymoses. Objective Labs 01/26/25 05:57 01/26/25 05:57 Labs: Laboratory Results - last 24 hr 01/20/25 01/21/25 15:45 04:25 WBC 7.8 RBC 3.58 L Hgb 11.3 L Hct 34.2 L MCV 96 MCH 31.6 MCHC 33.0 RDW Std Deviation 57.1 H Plt Count 228 D Neut % (Auto) 67 Lymph % (Auto) 22 [place] % (Auto) 8 Eos % (Auto) 2 Baso % (Auto) 1 Neut # (Auto) 5.2 Lymph # (Auto) 1.7 [place] # (Auto) 0.6 Eos # (Auto) 0.2 Baso # (Auto) 0.1 Immature Gran # (Auto) 0.02 H Absolute Nucleated RBC 0.00 Immature Gran % 0 Nucleated RBC % 0 Sodium 146 H Potassium 4.4 Chloride 110 H Carbon Dioxide 23.2 Anion Gap 13 BUN 83 H Creatinine 4.0 H Estim Creat Clear Calc 12.2 L eGFR 11 L* BUN/Creatinine Ratio 21 H Glucose 113 H Calculated Osmolality 316 H Calcium 7.1 L Corrected Calcium 7.7 L Phosphorus 4.1 Magnesium 1.8 Total Bilirubin < 0.2 L AST 17 ALT 19 Alkaline Phosphatase 100 Total Protein 5.5 L Albumin 3.3 L Globulin 2.2 L Albumin/Globulin Ratio 1.5 Stool for White Cells Negative Stl C. diff Tox B Gene Cancelled ABG Interpretation ABG results: 01/18/25 01/18/25 09:50 13:43 VBG pH 7.11 L 7.17 L VBG pCO2 50 39 D VBG pO2 38 57 VBG Base Excess -14 L -14 L Quality Measures Quality Measures VTE prophylaxis Advance care planning discussed with:: patient Assessment & Plan Assessment Current Active Medications: Generic Name Dose Route Start Last Admin Trade Name Freq PRN Reason Stop Dose Admin Acetaminophen 650 mg 01/18/25 14:24 Acetaminophen 325 Mg Tablet PO 02/17/25 14:23 Q6H PRN Fever >100.4 or pain 1-3 Albuterol/Ipratropium 3 ml 01/18/25 14:28 Albuterol/Ipratropium (Duoneb) Rt Dee 3 Ml Nebu INH 02/17/25 14:27 Q2HR PRN SHORTNESS OF BREATH OR WHEEZE Bumetanide 2 mg 01/19/25 09:00 01/20/25 08:04 Bumetanide Inj 0.25 Mg/Ml Vial 4 Ml IVP 02/18/25 08:59 Not Given QDAY KENNEDY Calcium Carbonate 600 mg 01/21/25 09:00 01/21/25 08:57 Calcium Carbonate 600 Mg Tablet PO 01/22/25 08:59 600 mg BID KENNEDY Administration Carvedilol 12.5 mg 01/20/25 08:00 01/21/25 08:57 Carvedilol 12.5 Mg Tablet PO 02/19/25 07:59 12.5 mg BIDWM KENNEDY Administration Citric Acid/Sodium Citrate 60 ml 01/19/25 21:00 01/21/25 09:49 Citric Acid/Sodium Citr 15 Ml Udc (Bicitra) PO 02/18/25 20:59 60 ml BID KENNEDY Administration Docusate Sodium 100 mg 01/18/25 14:24 Docusate Sod 100 Mg Capsule PO 02/17/25 14:23 QDAY PRN CONSTIPATION Protocol Famotidine 20 mg 01/21/25 09:00 01/21/25 08:57 Famotidine Inj 10 Mg/Ml Vial 2 Ml IVP 02/20/25 08:59 20 mg BID KENNEDY Administration Heparin Sodium (Porcine) 5,000 unit 01/18/25 21:00 01/21/25 08:56 Heparin Sod Inj 5000 Unit/Ml Vial SC 02/01/25 20:59 5,000 unit Q12HR KENNEDY Administration Hydralazine HCl 50 mg 01/20/25 22:00 01/21/25 05:36 Hydralazine Hcl 25 Mg Tablet PO 02/19/25 21:59 50 mg TID KENNEDY Administration Metoclopramide HCl 5 mg 01/21/25 08:14 Metoclopramide Inj 5 Mg/Ml Vial 2 Ml IVP 02/20/25 08:14 Q6HR PRN nausea or vomiting Protocol Nifedipine 30 mg 01/21/25 09:00 01/21/25 08:57 Nifedipine Xl 30 Mg Tabcr PO 02/20/25 08:59 30 mg QDAY KENNEDY Administration Plan 69 y/o F with PMHx significant for hypertension, CKD, breast cancer s/p resection, COPD, CHF presents with chief complaint of shortness of breath, negative for metabolic acidosis with SREE on CKD. #SREE on CKD IV #Acute diarrhea to R/O C.diff #Hypertensive urgency-improving Patient has acidosis as stated. Bicarb 16.4, chloride 117, lactic acid 0.3, VBG showed pH 7.17, pCO2 39. Patient reports 5-day history of diarrhea, potential source. Differential for SREE includes cardiorenal syndrome, hypertensive emergency, and dehydration secondary to diarrhea. BNP greater than 3000. Patient appears dry on exam, dry mucous membranes, no edema, no crackles in lung. Cardiology and nephrology consulted. Patient was extremely hypertensive on presentation, 220/142. Blood pressure significantly proved with minimal intervention, 164/86. Patient denies headaches, blurry vision, chest pain. Blood pressure after starting carvedilol 122/79, HR 79 - Nephrology consulted, appreciate recommendations ? Bicitra dose adjusted to 60 twice daily ? On Bumex 1 mg daily ? on Coreg 12.5mg twice daily - Hydralazine 50mg TID, will increase as tolerated - Avoid nephrotoxins - Renally dose medication - Slow decrease in blood pressure. #Acute decompensated heart failure #HFmEF [EF 45-50%] #? Cardiorenal syndrome #Elevated troponins On presentation patient came in with shortness of breath associated with paroxysmal nocturnal dyspnea, orthopnea and mild lower extremity edema. Patient does have history of smoking THC and methamphetamine use. On admission patient had bilateral crackles however mucous membranes were dry and pitting edema was trace. Chest x-ray showed some vascular congestion and had a brain natriuretic peptide of over 3000 with mildly elevated troponins. Patient is currently saturating 98% on room air Renal function continues poor even after fluids, symptoms seem to point to type II cardiorenal syndrome, spoke to cardiology service recommended starting patient on diuresis ? On Bumex 1 mg daily ? Fluid restriction 2000cc ? Strict ins and outs ? Daily weights ? Keep K >4, Mg >2 ? Cardiology consulted, appreciate recommendations #COPD #Hypertension Patient has history as stated. Patient does not take any of her meds. On presentation, patient BNP greater than 3000, however appears clinically dry on exam. Troponin 0.077, lower than normal for patient. Patient complains of shortness of breath, but is not appear to be having COPD exacerbation, no wheezing on exam, no increased cough or sputum production. Potential cardiorenal syndrome given SREE. Aiming for slow decrease in blood pressure given hypertensive urgency versus emergency as above. ? Started on carvedilol 12.5 mg twice daily ? DuoNebs ordered as needed #Polysubstance abuse Patient has history of polysubstance abuse, including methamphetamine, alcohol, marijuana. Patient denies alcohol use, but admits to meth and marijuana. U tox positive for meth. - Monitor for signs of withdrawal - Dough Mixing Machine Operator patient regarding resources for addiction DVT prophylaxis: Heparin GI prophylaxis: None Diet: Cardiac, renal, fluid restrict 2000cc Lines: Peripheral IV Code status: Full code Patient plan of care was discussed with the attending physician, Dr. Ammy Anders, PGY1 Attending Provider Attestation/Addendum 69-year-old female with multiple comorbidities including breast cancer status post resection, hypertension, hyperlipidemia, CKD and heart failure with reduced ejection fraction who presented with acute systolic heart failure exacerbation and acute kidney injury superimposed on CKD. During course of hospitalization, patient continued to have worsening kidney function with associated metabolic acidosis and concern for cardiorenal syndrome. Plan to continue IV diuretic therapy and appreciate nephrology input. Per nephrology, if it does not improve in kidney function then he might need hemodialysis.I reviewed above note and agree with findings and plans. I have also personally examined the patient with medicine team and went over assessment and plan with medical team including grad intern and resident physician.
--- NOTE | 2025-01-21 23:57 | ESPR_ITS ---
Documentation for date of: 01/21/25 Subjective Subjective Interval history: Patient seen and examined at the bedside. No new complaints including any cardiac implants. Yesterday patient did drink up to 5 L of fluid after removing the fluid restriction. She is net +4 L from yesterday and appears to be fluid overloaded Discussed with nephrology team again and patient has cardiorenal syndrome and recommended to restart IV diuresis along with fluid restriction. As patient is hyponatremic causing intravascular depletion due to aggressive diuresis will decrease the Bumex dose to 1 mg IV once daily and for now Strict input output, daily weights and 2 g sodium diet. Patient again recommended to restrict her fluid intake. Patient blood pressure continues to be elevated for now continue with amlodipine 10 mg once daily and will restart the patient Coreg which is her home medication and add hydralazine if needed no BETTY or ARB given the CKD stage IV. Exam Vital Signs Temp Pulse Resp BP Pulse Ox O2 Del Method O2 Flow Rate 98.1 F 77 20 148/71 H 97 Room Air 2 01/21/25 20:00 01/21/25 22:02 01/21/25 20:00 01/21/25 22:02 01/21/25 20:01/21/25 20:01/20/25 12:00 Narrative Exam General: AOx3, no acute distress, NAD, on room air. HEENT: dry mucous membranes, NC/AT, bilateral sclera anicteric Cardiovascular: regular rate and rhythm, S1/S2 present, no murmurs appreciated Pulmonary: CTAB, no w/r/r. Abdominal: soft, non-tender, non-distended, no rebound/guarding, normal bowel sounds present Musculoskeletal: No BLE pitting edema, large right-sided breast implant, normal ROM Skin: warm and dry, intact, no rashes Neuro: CN II-XII intact, no focal deficits Objective Labs 01/22/25 05:01/22/25 11:59 Labs: Laboratory Results - last 24 hr 01/20/25 01/21/25 15:45 04:25 WBC 7.8 RBC 3.58 L Hgb 11.3 L Hct 34.2 L MCV 96 MCH 31.6 MCHC 33.0 RDW Std Deviation 57.1 H Plt Count 228 D Neut % (Auto) 67 Lymph % (Auto) 22 [place] % (Auto) 8 Eos % (Auto) 2 Baso % (Auto) 1 Neut # (Auto) 5.2 Lymph # (Auto) 1.7 [place] # (Auto) 0.6 Eos # (Auto) 0.2 Baso # (Auto) 0.1 Immature Gran # (Auto) 0.02 H Absolute Nucleated RBC 0.00 Immature Gran % 0 Nucleated RBC % 0 Sodium 146 H Potassium 4.4 Chloride 110 H Carbon Dioxide 23.2 Anion Gap 13 BUN 83 H Creatinine 4.0 H Estim Creat Clear Calc 12.2 L eGFR 11 L* BUN/Creatinine Ratio 21 H Glucose 113 H Calculated Osmolality 316 H Calcium 7.1 L Corrected Calcium 7.7 L Phosphorus 4.1 Magnesium 1.8 Total Bilirubin < 0.2 L AST 17 ALT 19 Alkaline Phosphatase 100 Total Protein 5.5 L Albumin 3.3 L Globulin 2.2 L Albumin/Globulin Ratio 1.5 Stl C. diff Tox B Gene Cancelled ABG Interpretation ABG results: 01/18/25 01/18/25 09:50 13:43 VBG pH 7.11 L 7.17 L VBG pCO2 50 39 D VBG pO2 38 57 VBG Base Excess -14 L -14 L Assessment & Plan A&P Narrative 68-year-old female with a past medical history of Mild CAD by cath in June 2024, nonischemic cardiomyopathy with severe systolic congestive heart failure with an EF of 30 to 35% 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 Patient known to me from previous admission in June 2024 when she was diagnosed with severe systolic congestive heart failure. Patient was adequately diuresed and had a left and right heart cardiac catheterization performed at that time which showed mild CAD of 30% stenosis in the LAD. Nonischemic cardiomyopathy was diagnosed mostly secondary to methamphetamine abuse and history of drug abuse. Patient was started on some goal-directed medical therapy but did not follow-up regularly in the office. Patient apparently was admitted again in October 2024 when an echo was repeated and showed EF improved to 40 to 45%. Now she presents again with shortness of breath orthopnea as well as bilateral lower extremity edema. Patient continues to use methamphetamine and says that she has decreased the amount that she is using. Patient social situation is also not good as she was homeless previously a and was living in a trailer but at the present point of time does not have a home. Does not have anyone to take care of her closely or bring her to the appointments. Upon arrival to the ED, BP 206/135, saturating 97% on 6 L nasal cannula but upon evaluation saturating 94% on room air, HR 85, RR 20, afebrile. CBC unremarkable. VBG showed pH 7.17, PCO2 39, PO2 57. CHEM panel showed K 5.1, chloride 117, HCO3 16, BUN 72, creatinine 4, GFR 11, Mg 1.3, AST/ALT 50/51, alk phos 139, BNP > 3000, troponin 0.084 -> 0.077. UA showed 2+ protein, 1+ blood, 6 RBC. U tox positive for amphetamine. CXR showed mild vascular congestion, mildly enlarged cardiac contour, but no pneumonia or pulmonary edema. EKG showed HR 85, NSR, no ST or T wave abnormalities. On examination patient has significant bilateral crackles and has at least 1-2+ edema, puffy face as well as 2 or 6 systolic murmur heard at the apex. Difficult to assess the JVD. Assessment and plan: 1. Acute on chronic systolic CHF exacerbation 2. Acute on chronic kidney disease stage IV 3. Possible cardiorenal syndrome with hepatic congestion from the CHF exacerbation 4. Nonischemic cardiomyopathy mostly secondary to drug abuse 5. Mild CAD by cardiac cath in June 2024 6. Elevated LFTs mostly secondary to hepatic congestion 7. Mildly elevated troponins mostly secondary to NSTEMI type II 8. Hypertensive urgency 9. History of COPD not on home oxygen 10. Polysubstance abuse with meth abuse as well as history of smoking and continues to smoke currently 11. breast cancer s/p bilateral mastectomy 1995 and history of breast implants 12. Homeless Patient presented with shortness of breath, leg swelling as well as orthopnea for the past few weeks. Patient on examination has bilateral crackles and has 1 to + leg edema along with puffy face. Patient is hypoxic requiring 4 to 6 L via nasal cannula on arrival which improved after diuresis. Chest x-ray does show mild vascular congestion and BNP was greater than 3280. Also patient presented with hypertensive urgency with a blood pressure of 206/135. BUN and creatinine were at 72 and 4.1. Patient baseline creatinine around 2.5-2.7 during the last admission even in November 2024 Patient has elevated LFTs also indicating hepatic congestion. Overall clinical picture suggest acute on chronic systolic congestive heart failure with cardiorenal syndrome presentation. Recommend aggressive diuresis with the Lasix 40 mg IV twice daily and can change to Bumex if there is no signs of urine output. Discontinued IV fluids for now. Strict input output, daily weights and 2 g sodium diet. Recent echo reviewed and showed an EF of 40 to 45% with mild systolic dysfunction and previous echo was severe systolic dysfunction with an EF of 30 to 35%. Patient appears to have not been taking her medications including any medications for the heart failure or for her blood pressure and presented with high blood pressure 206/135 mmHg. Recommend to aggressively diurese the patient and start the patient on amlodipine 10 mg once daily for now and will start beta-nidhi later once the patient is adequately diuresed. No BETTY inhibitor's or ARB's in view of the SREE on CKD Patient with acute kidney injury on CKD stage IV. Nephrology was also consulted by the primary team and patient might eventually need dialysis if kidney function does not improve with diuresis. Patient has mildly elevated troponins of 0.07 and 0.08 admitted mostly secondary to acute CHF exacerbation and patient already had echocardiogram which showed mild CAD in June 2024. Patient counseled regarding quitting smoking completely as well as drug abuse Patient counseled and recommended to make sure to show for follow-up appointments with PCP, nephrology as well as cardiology. Recommended sr. social media & mobile manager as well as case management consult for placement for this patient and also will need possible rehab at the time of discharge including drug rehab. 01/19/2025-patient did not diurese much last night and will change the patient from Lasix to Bumex 2 mg IV twice a day for now. Continue strict input output, daily weights and 2 g sodium diet. Patient overall appears to be better in the evening around send output was greater than 1 L. Kidney function today showed creatinine of 3.8 and was 4.1 yesterday. Blood pressure is in the range of 160 to 180 mmHg. Continue amlodipine for now and will restart Coreg once patient is diuresed well.Rest of the vitals stable 01/20/2025 - Patient diuresed well with Bumex yesterday and was net negative around 1 to 2 L. BUN is 83 today and creatinine of 4.0 but sodium increased to 146 and chloride is also 112. Leg edema and facial edema has improved considerably but patient appears to be intravascularly depleted but still has some extravascular fluid with 1+ leg edema. Nephrology recommended to hold the Bumex for today and also to hold the fluid restriction and will reevaluate tomorrow morning for further diuresis based on the labs. 01/21/25 - Yesterday patient did drink up to 5 L of fluid after removing the fluid restriction. She is net +4 L from yesterday and appears to be fluid overloaded Discussed with nephrology team again and patient has cardiorenal syndrome and recommended to restart IV diuresis along with fluid restriction. As patient is hyponatremic causing intravascular depletion due to aggressive diuresis will decrease the Bumex dose to 1 mg IV once daily and for now Strict input output, daily weights and 2 g sodium diet. Patient again recommended to restrict her fluid intake. Patient blood pressure continues to be elevated for now continue with amlodipine 10 mg once daily and will restart the patient Coreg which is her home medication and add hydralazine if needed no BETTY or ARB given the CKD stage IV. Management of rest of the medical conditions as per primary team and other consultants. Thank you for the consult and allowing me to participate in the care of the patient. Cardiology will continue to follow. Pillo Mauricio M.D. Interventional Cardiology Time Spent With Patient Time: Total time spent is greater than 50% in coordination of care (as documented) at patient's floor/unit and/or counseling patient:
[2025-01-22] VITALS (17 sets, daily range): BP systolic 149–206; BP diastolic 79–98; PULSE 64–86; RESP 16–94; TEMP 36.1–36.5; O2SAT 90–99; BMI 25.0
[2025-01-22] MEDS: hydrALAZINE HCL 25 MG TABLET 50 MG PO ×3 (05:32→21:21)
[2025-01-22 06:54] LABS: Basophils # (Auto) 0.1 Thou/mm3 (0.0-0.2); Basophils % (Auto) 1 % (0-2.5); Eosinophils # (Auto) 0.2 Thou/mm3 (0.0-0.5); Eosinophils % (Auto) 2 % (0-10); Hematocrit 35.4 % (36.0-46.0); Hemoglobin 12.2 g/dL (12.0-16.0); Immature Granulocytes % (Auto) 1 % (0-0); Immature Granulocytes Auto 0.05 Thou/mm3 (0.00-0.00); Lymphocytes # (Auto) 1.3 Thou/mm3 (1.0-4.8); Lymphocytes % (Auto) 16 % (10-50); Mean Corpuscular HGB Conc 34.5 g/dl (31.0-37.0); Mean Corpuscular Hemoglobin 31.8 pg (25.0-35.0); Mean Corpuscular Volume 92 fL (80-100); Monocytes # (Auto) 0.7 Thou/mm3 (0.0-0.8); Monocytes % (Auto) 9 % (0-12); Neutrophils # (Auto) 5.6 Thou/mm3 (1.8-7.7); Neutrophils % (Auto) 71 % (37-80); Nucleated Red Blood Cell % 0 /100 WBC (0); Platelet Count 200 Thou/mm3 (140-440); Red Blood Count 3.84 Miln/mm3 (4.00-5.20); White Blood Count 7.8 Thou/mm3 (3.6-11.0)
[2025-01-22 07:42] LABS: Alanine Aminotransferase 19 U/L (10-49); Albumin, Serum 3.9 gm/dL (3.4-4.8); Albumin/Globulin Ratio 1.7 (1.2-2.2); Alkaline Phosphatase 106 U/L (46-116); Anion Gap 12 (7-16); Aspartate Amino Transferase 16 U/L (0-34); BUN/Creatinine Ratio 24 Ratio (12-20); Bilirubin,Total 0.2 mg/dL (0.3-1.2); Blood Urea Nitrogen 83 mg/dL (9-23); Calcium 7.6 mg/dL (8.3-10.6); Calcium (Corrected) 7.7 mg/dL (8.5-10.1); Carbon Dioxide 25.8 mMol/L (20.0-31.0); Chloride 108 mMol/L (98-107); Creatinine (Component) 3.4 mg/dL (0.6-1.3); Estimated Creatinine Clearance 14.3 mL/min (>60); Globulin 2.3 gm/dL (2.3-3.5); Glucose 102 mg/dL (74-106); Osmolality,Calculated 315 (275-295); Potassium 4.1 mMol/L (3.4-5.1); Sodium 146 mMol/L (136-145); Total Protein 6.2 gm/dL (5.7-8.2); eGFR 14 See Note
[2025-01-22] MEDS: FAMOTIDINE INJ 10 MG/ML VIAL 2 ML 20 MG IVP ×2 (08:24→21:20)
[2025-01-22] MEDS: BUMETANIDE INJ 0.25 MG/ML VIAL 4 ML 1 MG IVP (08:24)
[2025-01-22] MEDS: HEPARIN SOD INJ 5000 UNIT/ML VIAL SC ×2 (08:24→21:22)
[2025-01-22] MEDS: NIFEdipine XL 30 MG TABCR PO ×2 (08:25→21:21)
[2025-01-22] MEDS: carVEDILOL 12.5 MG TABLET PO ×2 (08:25→08:37)
[2025-01-22] MEDS: CITRIC ACID/SODIUM CITR 15 ML UDC (BICITRA) 60 ML PO (10:21)
--- NOTE | 2025-01-22 11:21 | PD.RESPRO ---
Documentation for date of: 01/22/25 Subjective Subjective Interval history: 01/22/2025: No acute overnight events to report. Patient seen and examined in hospital bed reporting persistent shortness of breath especially when laying flat. Patient does not appear to be volume overloaded; moreover, patient blood pressure severely elevated initially at 206/98 but has since been reduced to 170s systolic with diastolic in the low 90s. As such, decision was made to increase patient's antihypertensive medications. Diltiazem has been increased to 30 mg p.o. twice daily and carvedilol increased to 25 mg p.o. twice daily. Patient also received Bumex 1 mg; moreover, will recheck renal panel to see if diuresing is beneficial to kidney function. Upon recheck, renal panel shows improvement in creatinine from 3.4-3.3. Will continue current management and reassess on 01/23/2025. Exam Vital Signs Temp Pulse Resp BP Pulse Ox O2 Del Method O2 Flow Rate 97.6 F 70 18 171/89 H 92 L Room Air 2 01/22/25 08:00 01/22/25 10:51 01/22/25 10:51 01/22/25 08:37 01/22/25 08:00 01/22/25 08:00 01/22/25 00:00 Narrative Exam Physical Exam: General: Awake, answering questions appropriately, appears stated age, HEENT: Normocephalic, atraumatic, mucous membranes moist. Heart: Regular rate and rhythm, no murmurs. Lungs: Clear to auscultation with no wheezing or crackles. Right breast implant with mastectomy of left Abdomen: Soft, nondistended, nontender, positive bowel sounds. ?No guarding or rebound tenderness. Extremities: No edema. Marginal left upper extremity swelling noted Skin: No rash or ecchymoses. Neurologic: Alert and oriented x3, no gross neurological deficit, and patient able to move all 4 extremities. Objective Labs 01/26/25 05:57 01/26/25 05:57 Labs: Laboratory Results - last 24 hr 01/20/25 01/22/25 15:45 05:03 WBC 7.8 RBC 3.84 L Hgb 12.2 Hct 35.4 L MCV 92 MCH 31.8 MCHC 34.5 RDW Std Deviation 55.0 H Plt Count 200 Neut % (Auto) 71 Lymph % (Auto) 16 [place] % (Auto) 9 Eos % (Auto) 2 Baso % (Auto) 1 Neut # (Auto) 5.6 Lymph # (Auto) 1.3 [place] # (Auto) 0.7 Eos # (Auto) 0.2 Baso # (Auto) 0.1 Immature Gran # (Auto) 0.05 H Absolute Nucleated RBC 0.00 Immature Gran % 1 H Nucleated RBC % 0 Sodium 146 H Potassium 4.1 Chloride 108 H Carbon Dioxide 25.8 Anion Gap 12 BUN 83 H Creatinine 3.4 H D Estim Creat Clear Calc 14.3 L eGFR 14 L* BUN/Creatinine Ratio 24 H Glucose 102 Calculated Osmolality 315 H Calcium 7.6 L Corrected Calcium 7.7 L Total Bilirubin 0.2 L AST 16 ALT 19 Alkaline Phosphatase 106 Total Protein 6.2 Albumin 3.9 D Globulin 2.3 Albumin/Globulin Ratio 1.7 Stl C. diff Tox B Gene Cancelled ABG Interpretation ABG results: 01/18/25 01/18/25 09:50 13:43 VBG pH 7.11 L 7.17 L VBG pCO2 50 39 D VBG pO2 38 57 VBG Base Excess -14 L -14 L Quality Measures Quality Measures VTE prophylaxis Advance care planning discussed with:: patient Assessment & Plan Assessment Current Active Medications: Generic Name Dose Route Start Last Admin Trade Name Freq PRN Reason Stop Dose Admin Acetaminophen 650 mg 01/18/25 14:24 Acetaminophen 325 Mg Tablet PO 02/17/25 14:23 Q6H PRN Fever >100.4 or pain 1-3 Albuterol/Ipratropium 3 ml 01/18/25 14:28 Albuterol/Ipratropium (Duoneb) Rt Dee 3 Ml Nebu INH 02/17/25 14:27 Q2HR PRN SHORTNESS OF BREATH OR WHEEZE Bumetanide 1 mg 01/21/25 14:15 01/22/25 08:24 Bumetanide Inj 0.25 Mg/Ml Vial 4 Ml IVP 02/20/25 14:14 1 mg QDAY KENNEDY Administration Carvedilol 25 mg 01/22/25 17:30 Carvedilol 12.5 Mg Tablet PO 02/21/25 17:29 BIDWM KENNEDY Citric Acid/Sodium Citrate 60 ml 01/19/25 21:00 01/22/25 10:21 Citric Acid/Sodium Citr 15 Ml Udc (Bicitra) PO 02/18/25 20:59 60 ml BID KENNEDY Administration Docusate Sodium 100 mg 01/18/25 14:24 Docusate Sod 100 Mg Capsule PO 02/17/25 14:23 QDAY PRN CONSTIPATION Protocol Famotidine 20 mg 01/21/25 09:00 01/22/25 08:24 Famotidine Inj 10 Mg/Ml Vial 2 Ml IVP 02/20/25 08:59 20 mg BID KENNEDY Administration Heparin Sodium (Porcine) 5,000 unit 01/18/25 21:00 01/22/25 08:24 Heparin Sod Inj 5000 Unit/Ml Vial SC 02/01/25 20:59 5,000 unit Q12HR KENNEDY Administration Hydralazine HCl 50 mg 01/20/25 22:00 01/22/25 05:32 Hydralazine Hcl 25 Mg Tablet PO 02/19/25 21:59 50 mg TID KENNEDY Administration Metoclopramide HCl 5 mg 01/21/25 08:14 Metoclopramide Inj 5 Mg/Ml Vial 2 Ml IVP 02/20/25 08:14 Q6HR PRN nausea or vomiting Protocol Nifedipine 30 mg 01/22/25 09:00 01/22/25 08:36 Nifedipine Xl 30 Mg Tabcr PO 02/21/25 08:59 Not Given BID KENNEDY Plan 69 y/o F with PMHx significant for hypertension, CKD, breast cancer s/p resection, COPD, CHF presents with chief complaint of shortness of breath, negative for metabolic acidosis with SREE on CKD. #SREE on CKD IV #Acute diarrhea to R/O C.diff #Hypertensive urgency-improving Uncertain etiology at this point; differentials include cardiorenal syndrome secondary to HFmEF, worsening CKD, prerenal azotemia from diarrhea Patient has acidosis as stated. Bicarb 16.4, chloride 117, lactic acid 0.3, VBG showed pH 7.17, pCO2 39. Patient reports 5-day history of diarrhea, potential source. Differential for SREE includes cardiorenal syndrome, hypertensive emergency, and dehydration secondary to diarrhea. BNP greater than 3000. Patient appears dry on exam, dry mucous membranes, no edema, no crackles in lung. Cardiology and nephrology consulted. Kidney functions improving with repeat renal panel showing improvement in creatinine Plan: Stool studies pending Nephrology consulted, appreciate recommendations Trial of Bumex 1 mg daily Increase Coreg to 25 mg p.o. twice daily Continue hydralazine 50mg TID, will increase as tolerated Avoid nephrotoxins Renally dose medication #Acute decompensated heart failure #HFmEF [EF 45-50%] #Cardiorenal syndrome #Elevated troponins, chronically elevated On presentation patient came in with shortness of breath associated with paroxysmal nocturnal dyspnea, orthopnea and mild lower extremity edema. Patient does have history of smoking THC and methamphetamine use. On admission patient had bilateral crackles however mucous membranes were dry and pitting edema was trace. Echo from 10/2024 shows: Normal LV size and wall thickness mild global hypokinesis. Estimated EF 45-50%. Normal RV size and function. Estimated RVSP 45 mm Hg. Severe biatrial dilatation. Mild MAC. with Mild to moderate MR. Moderate TR. Mild PI. IVC dilated. Chest x-ray showed some vascular congestion BNP of over 3000 with mildly elevated troponins Renal function improving with diuresis Plan: Continue Bumex 1 mg daily Fluid restriction 1800cc Strict ins and outs Daily weights Keep K >4, Mg >2 Cardiology consulted, appreciate recommendations #COPD #Hypertension Patient has history as stated. Patient does not take any of her meds. On presentation, patient BNP greater than 3000, however appears clinically dry on exam. Patient complains of shortness of breath, but is not appear to be having COPD exacerbation, no wheezing on exam, no increased cough or sputum production. Plan: Increased nifedipine to 30 mg p.o. twice daily Increased carvedilol to 25 mg p.o. twice daily DuoNebs ordered as needed #Polysubstance abuse Patient has history of polysubstance abuse, including methamphetamine, alcohol, marijuana. Patient denies alcohol use, but admits to meth and marijuana. U tox positive for meth. Plan: Monitor for signs of withdrawal Atmospheric Chemist patient regarding resources for addiction Hospital Management: DVT prophylaxis: Heparin GI prophylaxis: None Diet: Cardiac, renal, fluid restrict 2000cc Lines: Peripheral IV Code status: Full code Patient seen and examined with attending Dr. Ammy Mcginnis, PGY-1 Attending Provider Attestation/Addendum 69-year-old female with multiple comorbidities including breast cancer status post resection, hypertension, hyperlipidemia, CKD and heart failure with reduced ejection fraction who presented with acute systolic heart failure exacerbation and acute kidney injury superimposed on CKD. During course of hospitalization, patient continued to have worsening kidney function with associated metabolic acidosis and concern for cardiorenal syndrome. Plan to continue IV diuretic therapy and appreciate nephrology input. Overnight, kidney function continues to worsen with no improvement. Continues to be hypertensive for which we will adjust blood pressure medications. Patient likely will need hemodialysis..I reviewed above note and agree with findings and plans. I have also personally examined the patient with medicine team and went over assessment and plan with medical team including international freight forwarder and resident physician.
--- NOTE | 2025-01-22 12:09 | PD.NEPHPROG ---
Documentation for date of: 01/22/25 Subjective Subjective Interval history: Ms. Freed is a 69-year-old female past medical history of HFrEF with a EF of 45 to 50%, CKD stage IV, hypertension, COPD, breast cancer status post unilateral mastectomy, meth abuse who came in because of shortness of breath. Patient was seen at bedside in the ED and was shivering because she was feeling cold. She is a poor historian and has been noncompliant with his medications as she states that she only takes her meds on and off. She does reveal that she has been using meth for about a week and the last time was this morning prior to admission. She has also been having episodes of diarrhea that were brown and nonbloody for about a week. She states that she has been eating well however that is questionable as she says her last meal was sometime yesterday in the afternoon and the only thing she had today was a sandwich given to her by the ED. In terms of her symptoms patient's main complaint was a shortness of breath with mild chest pressure and a mild abdominal tenderness however she denies any fevers, chills, flulike symptoms, nausea, vomiting or rashes. Patient does state that she has been having headaches which goes along with her uncontrolled blood pressure. The neurology team was consulted as patient's renal function is worse than usual.Renal ultrasound obtained on September this year showed bilateral renal parenchymal scar formation with right renal cortical thinning. Chloride was elevated at 117 without a bicarb of 16.4. BUN was 72 and creatinine was 4.4 from a baseline of 2.5. Lactic acid was normal at 1.3 however troponins were mildly elevated at 0.077 and BUN was greater than 30-80. UA had 2+ protein without leukocyte esterase and only rare bacteria. U-Tox was positive for meth 01/19/2025: Patient seen examined at bedside, resting comfortably. Patient endorses shortness of breath with mild distress, however saturating well on room air. Otherwise denies fever, chills, chest pain. Hemoglobin 11.4, chloride 115, bicarb 15 (decreased from yesterday). BUN 61, creatinine 3.8, eGFR 12, kidney function improving. Phosphorus 5.7, magnesium 1.8. On exam patient had bilateral edema and crackles in lungs. Suspect fluid overload, recommend diuretics. 01/20/2025: Patient seen and examined at bedside, resting comfortably. Patient continues to endorse shortness of breath, however improved from yesterday subjectively. Patient denies fever, chills, chest pain, nausea, vomiting. WBC 8.8, hemoglobin 11.4. Patient hypernatremic 146, asymptomatic. BUN 23, creatinine 4.0, EGFR 19. Kidney function worsening, patient has improved crackles and decreased edema, suspect overdiuresis. Recommend holding diuretics and pausing fluid restriction. 01/21/2025: Patient seen examined at bedside. Patient mildly distressed, worsening shortness of breath. Denies fever, chills, chest pain, nausea, vomiting. WBC 7.8, hemoglobin 11.3, sodium 146, chloride 110, bicarb 23.2. BUN 83, creatinine 4.0, EGFR 11. Patient had 5 L of oral intake yesterday, 1.5 L urine output. Suspect cardiorenal syndrome, recommend resuming diuretics and fluid restriction. Discussed possibility of needing dialysis with patient, if kidneys do not improve. 01/22/2025 patient currently seen in telemetry. More alert and awake. Shortness of breath much better. She put out good urine with 1 mg IV Bumex. Recommended to continue with fluid restriction and IV diuretics. Vital signs have been stable hemoglobin 12.2, sodium 147, potassium 4.3, BUN 72, creatinine 3.3, calcium 7.9, LFTs normal. Hep panel ordered. Review of Systems Review of Systems Narrative Review of Systems: Patient complaining of fatigue. Denies any chest pain. Denies any nausea, vomiting. Does have shortness of breath although much better. Exam Vital Signs Temp Pulse Resp BP Pulse Ox O2 Del Method O2 Flow Rate 36.4 C 70 18 171/89 H 92 L Room Air 2 01/22/25 08:00 01/22/25 10:51 01/22/25 10:51 01/22/25 08:37 01/22/25 08:00 01/22/25 08:00 01/22/25 00:00 Narrative Exam GENERAL APPEARANCE: Patient seems to be comfortable, adequately hydrated and nourished. NECK: Neck supple, no JVD or bruit Patient had right breast implant CARDIOVASCULAR: Heart regular, no murmurs LUNGS/CHEST: Crackles much better than yesterday ABDOMEN: Soft, nontender, nondistended. No masses. Normal bowel sounds. EXTREMITIES: 1+ edema in the lower extremities SKIN: Skin exam normal without any rashes MUSCULOSKELETAL: in bed-able to move her extremities NEUROLOGICAL : No neurological deficits Objective Labs 01/22/25 05:03 01/22/25 11:59 Labs: Laboratory Results - last 24 hr 01/22/25 05:03 WBC 7.8 RBC 3.84 L Hgb 12.2 Hct 35.4 L MCV 92 MCH 31.8 MCHC 34.5 RDW Std Deviation 55.0 H Plt Count 200 Neut % (Auto) 71 Lymph % (Auto) 16 [place] % (Auto) 9 Eos % (Auto) 2 Baso % (Auto) 1 Neut # (Auto) 5.6 Lymph # (Auto) 1.3 [place] # (Auto) 0.7 Eos # (Auto) 0.2 Baso # (Auto) 0.1 Immature Gran # (Auto) 0.05 H Absolute Nucleated RBC 0.00 Immature Gran % 1 H Nucleated RBC % 0 Sodium 146 H Potassium 4.1 Chloride 108 H Carbon Dioxide 25.8 Anion Gap 12 BUN 83 H Creatinine 3.4 H D Estim Creat Clear Calc 14.3 L eGFR 14 L* BUN/Creatinine Ratio 24 H Glucose 102 Calculated Osmolality 315 H Calcium 7.6 L Corrected Calcium 7.7 L Total Bilirubin 0.2 L AST 16 ALT 19 Alkaline Phosphatase 106 Total Protein 6.2 Albumin 3.9 D Globulin 2.3 Albumin/Globulin Ratio 1.7 ABG Interpretation ABG results: 01/18/25 01/18/25 09:50 13:43 VBG pH 7.11 L 7.17 L VBG pCO2 50 39 D VBG pO2 38 57 VBG Base Excess -14 L -14 L Assessment & Plan Additional Assessment & Plan Additional Plan: Johana Freed is a 69-year-old female with PMHx of HFrEF (EF 30 to 35%, 06/2024), CKD stage IV/V, COPD, hypertension, breast cancer status post bilateral mastectomy, and history of methamphetamine use who was admitted for management of acute decompensated CHF exacerbation and hypertension. Nephrology consulted for evaluation of acute on chronic kidney injury. #Acute on chronic kidney injury #CKD stage IV/V #Prerenal azotemia vs ATN vs cardiorenal syndrome type 2 Continue with diuretics, fluid restriction. Creatinine stable. Did discuss sequential ultrafiltration with patient if no improvement in renal function or if patient continues to have recurrent episodes of fluid overload. She agreed. #Hypertension #Acute decompensated heart failure exacerbation #HFrEF #AHRF secondary to, #Community-acquired pneumonia #COVID-positive #Influenza positive #History of COPD #Transaminitis #Cirrhosis #NSTEMI type II #Polysubstance abuse - Continue management per primary team
[2025-01-22 12:44] LABS: Albumin, Serum 3.6 gm/dL (3.4-4.8); Anion Gap 11 (7-16); BUN/Creatinine Ratio 22 Ratio (12-20); Blood Urea Nitrogen 72 mg/dL (9-23); Calcium 7.6 mg/dL (8.3-10.6); Calcium (Corrected) 7.9 mg/dL (8.5-10.1); Carbon Dioxide 29.2 mMol/L (20.0-31.0); Chloride 107 mMol/L (98-107); Creatinine (Component) 3.3 mg/dL (0.6-1.3); Estimated Creatinine Clearance 14.7 mL/min (>60); Glucose 94 mg/dL (74-106); Osmolality,Calculated 313 (275-295); Phosphorous 3.4 mg/dL (2.4-5.1); Potassium 4.3 mMol/L (3.4-5.1); Sodium 147 mMol/L (136-145); eGFR 14 See Note
[2025-01-22] MEDS: carVEDILOL 12.5 MG TABLET 25 MG PO (16:43)
[2025-01-22 22:07] LABS: Hepatitis A Antibody IgM Non Reactive (Non React); Hepatitis B Core Antibody IgM Non Reactive (Non React); Hepatitis B Surface Antigen Non Reactive (Non React); Hepatitis C Antibody Non Reactive (Non React)
[2025-01-23] VITALS (21 sets, daily range): BP systolic 111–184; BP diastolic 72–101; PULSE 62–111; RESP 13–97; TEMP 36.1–36.3; O2SAT 92–98; BMI 23.8
[2025-01-23] MEDS: hydrALAZINE HCL 25 MG TABLET 50 MG PO ×3 (05:52→21:04)
[2025-01-23 05:56] LABS: Basophils # (Auto) 0.1 Thou/mm3 (0.0-0.2); Basophils % (Auto) 1 % (0-2.5); Eosinophils # (Auto) 0.2 Thou/mm3 (0.0-0.5); Eosinophils % (Auto) 3 % (0-10); Hematocrit 36.2 % (36.0-46.0); Hemoglobin 11.8 g/dL (12.0-16.0); Immature Granulocytes % (Auto) 0 % (0-0); Immature Granulocytes Auto 0.02 Thou/mm3 (0.00-0.00); Lymphocytes # (Auto) 1.1 Thou/mm3 (1.0-4.8); Lymphocytes % (Auto) 17 % (10-50); Mean Corpuscular HGB Conc 32.6 g/dl (31.0-37.0); Mean Corpuscular Hemoglobin 31.7 pg (25.0-35.0); Mean Corpuscular Volume 97 fL (80-100); Monocytes # (Auto) 0.5 Thou/mm3 (0.0-0.8); Monocytes % (Auto) 7 % (0-12); Neutrophils % (Auto) 73 % (37-80); Nucleated Red Blood Cell % 0 /100 WBC (0); Platelet Count 198 Thou/mm3 (140-440); RDW Standard Deviation 57.8 fL (36.4-46.3); Red Blood Count 3.72 Miln/mm3 (4.00-5.20); White Blood Count 6.8 Thou/mm3 (3.6-11.0)
[2025-01-23 06:22] LABS: Alanine Aminotransferase 16 U/L (10-49); Albumin, Serum 3.5 gm/dL (3.4-4.8); Albumin/Globulin Ratio 1.5 (1.2-2.2); Alkaline Phosphatase 95 U/L (46-116); Anion Gap 13 (7-16); Aspartate Amino Transferase 15 U/L (0-34); BUN/Creatinine Ratio 21 Ratio (12-20); Bilirubin,Total 0.2 mg/dL (0.3-1.2); Blood Urea Nitrogen 77 mg/dL (9-23); Calcium 7.5 mg/dL (8.3-10.6); Calcium (Corrected) 7.9 mg/dL (8.5-10.1); Carbon Dioxide 28.4 mMol/L (20.0-31.0); Chloride 104 mMol/L (98-107); Creatinine (Component) 3.6 mg/dL (0.6-1.3); Estimated Creatinine Clearance 12.4 mL/min (>60); Globulin 2.3 gm/dL (2.3-3.5); Glucose 206 mg/dL (74-106); Osmolality,Calculated 317 (275-295); Sodium 145 mMol/L (136-145); Total Protein 5.8 gm/dL (5.7-8.2); eGFR 13 See Note
--- NOTE | 2025-01-23 06:50 | XR_ITS ---
Ultrasound-guided needle placement right internal jugular vein Permanent tunneled dialysis catheter insertion, percutaneous Fluoroscopy AP chest, portable, single view. Date and time of procedure: January 23, 2025 1013 hours INDICATIONS: Renal failure, need for stat and long-term dialysis Informed consent provided Technique: A timeout was completed verifying correct patient, procedure, site, positioning, and special equipment if applicable. The patient was placed in a dependent position appropriate for dialysis catheter placement based on the vein to be cannulated. The patient'sright neck was prepped and draped in sterile fashion. Maximum Sterile Barrier Technique used including cap, mask, sterile gown, sterile gloves, and sterile full body drape. If ultrasound technique used: sterile gel and sterile probe covers. Hand Hygiene performed using proper scrub, soap and water, or alcohol-based hand rub. 1% lidocaine was used to anesthetize the surrounding skin area [email or web address] portable ultrasound apparatus utilized to confirm patency of the right internal jugular vein Utilizing ultrasonographic guidance successful 21-gauge needle puncture into the right internal jugular vein Ultrasound images were recorded and stored. Vessel micropuncture was performed with 21-gauge needle. 0.18 wire guide is introduced into the vein. 0.18 wire is introduced into the vena cava under fluoroscopy. Subcutaneous tunnel formed in the upper chest. Permanent tunneled dialysis catheter placed in the subcutaneous tunnel. Dilators were introduced over the J-wire guide. Tunneled dialysis catheter is introduced through a dilator with venous sheath into the superior vena cava under fluoroscopic guidance. The catheter is sutured in place to the skin and a sterile dressing applied. Perfusion to the extremity distal to the point of catheter insertion is checked and found to be adequate Attending radiologist was present for the entire procedure Estimated blood loss4 cc. The patient tolerated the procedure well and there were no complications Impression: Successful ultrasound-guided needle placement right internal jugular vein Successful permanent tunneled dialysis catheter insertion, percutaneous Fluoroscopy 0.4 minute radiation dose 1.68 milligray 1 spot fluoroscopic chest film. AP chest performed at completion procedure demonstrates satisfactory position dialysis catheter. May use dialysis catheter.
--- NOTE | 2025-01-23 06:50 | XR_ITS ---
Examination: AP chest single view Technique one AP portable sitting chest single view Exam date and time: January 23, 2025 0749 hours Comparison January 18, 2025 INDICATIONS: Inpatient with shortness of breath. FINDINGS: Mild heart failure Mild to moderate enlargement left ventricle Prominent vascular congestion Early septal edema at the lung bases Right axillary surgical clips IMPRESSION: Early heart failure
--- NOTE | 2025-01-23 07:49 | ESPR_ITS ---
Documentation for date of: 01/23/25 Subjective Subjective Interval history: Examined at bedside. No acute overnight events. Reports doing well, however upset about being n.p.o. for dialysis cath today. Denies fever, chills, headaches, chest pain, sob, cough, GI or urinary symptoms. Remains afebrile. BP today 165/81, overall elevated despite CARVEDILOL, NIFEDIPINE and HYDRALAZINE. She appears dependant on diuresis and has good urine output, however she has poor tolerance with recurrent elevation in CR/BUN follow diuresis. Urine output today 2.2 L, overall 4.8 L positive. Bilateral crackles heard on exam, although oxygenating well on room air, no lower extremity edema. CR 3.3>3.6, GFR 14>13, BUN 77. Today's weight is 63.5, same as on presentation. continue diuresis as pt with good urine output. Nephrology planning for HD twice weekly, agree with plan. Will continue with BP management, anticipate improvement with HD. Exam Vital Signs Temp Pulse Resp BP Pulse Ox O2 Del Method O2 Flow Rate 97.0 F 70 18 165/81 H 92 L Room Air 2 01/23/25 04:00 01/23/25 05:56 01/23/25 04:00 01/23/25 05:52 01/23/25 04:00 01/23/25 04:00 01/22/25 00:00 Narrative Exam General: AOx3, no acute distress, NAD, on room air. HEENT: dry mucous membranes, NC/AT, bilateral sclera anicteric Cardiovascular: regular rate and rhythm, S1/S2 present, no murmurs appreciated Pulmonary: mild bibasilar crackle, no wheezing. Abdominal: soft, non-tender, non-distended, no rebound/guarding, normal bowel sounds present Musculoskeletal: No BLE pitting edema, large right-sided breast implant, normal ROM Skin: warm and dry, intact, no rashes Neuro: CN II-XII intact, no focal deficits Objective Labs 01/23/25 05:00 01/23/25 05:00 Labs: Laboratory Results - last 24 hr 01/22/25 01/22/25 01/23/25 05:03 11:59 05:00 WBC 6.8 RBC 3.72 L Hgb 11.8 L Hct 36.2 MCV 97 MCH 31.7 MCHC 32.6 RDW Std Deviation 57.8 H Plt Count 198 Neut % (Auto) 73 Lymph % (Auto) 17 Shannon % (Auto) 7 Eos % (Auto) 3 Baso % (Auto) 1 Neut # (Auto) 5.0 Lymph # (Auto) 1.1 Shannon # (Auto) 0.5 Eos # (Auto) 0.2 Baso # (Auto) 0.1 Immature Gran # (Auto) 0.02 H Absolute Nucleated RBC 0.00 Immature Gran % 0 Nucleated RBC % 0 Sodium 147 H 145 Potassium 4.3 4.0 Chloride 107 104 Carbon Dioxide 29.2 28.4 Anion Gap 11 13 BUN 72 H 77 H Creatinine 3.3 H 3.6 H Estim Creat Clear Calc 14.7 L 12.4 L eGFR 14 L* 13 L* BUN/Creatinine Ratio 22 H 21 H Glucose 94 206 H D Calculated Osmolality 313 H 317 H Calcium 7.6 L 7.5 L Corrected Calcium 7.9 L 7.9 L Phosphorus 3.4 Total Bilirubin 0.2 L AST 15 ALT 16 Alkaline Phosphatase 95 Total Protein 5.8 Albumin 3.6 3.5 Globulin 2.3 Albumin/Globulin Ratio 1.5 Hepatitis A IgM Ab Non Reactive Hep Bs Antigen Non Reactive Hep B Core IgM Ab Non Reactive Hepatitis C Antibody Non Reactive ABG Interpretation ABG results: 01/18/25 01/18/25 09:50 13:43 VBG pH 7.11 L 7.17 L VBG pCO2 50 39 D VBG pO2 38 57 VBG Base Excess -14 L -14 L Quality Measures Quality Measures VTE prophylaxis Advance care planning discussed with:: patient Assessment & Plan Assessment Current Active Medications: Generic Name Dose Route Start Last Admin Trade Name Freq PRN Reason Stop Dose Admin Acetaminophen 650 mg 01/18/25 14:24 Acetaminophen 325 Mg Tablet PO 02/17/25 14:23 Q6H PRN Fever >100.4 or pain 1-3 Albuterol/Ipratropium 3 ml 01/18/25 14:28 Albuterol/Ipratropium (Duoneb) Rt Dee 3 Ml Nebu INH 02/17/25 14:27 Q2HR PRN SHORTNESS OF BREATH OR WHEEZE Bumetanide 1 mg 01/21/25 14:15 01/22/25 08:24 Bumetanide Inj 0.25 Mg/Ml Vial 4 Ml IVP 02/20/25 14:14 1 mg QDAY KENNEDY Administration Carvedilol 25 mg 01/22/25 17:30 01/23/25 07:45 Carvedilol 12.5 Mg Tablet PO 02/21/25 17:29 Not Given BIDWM KENNEDY Docusate Sodium 100 mg 01/18/25 14:24 Docusate Sod 100 Mg Capsule PO 02/17/25 14:23 QDAY PRN CONSTIPATION Protocol Famotidine 20 mg 01/21/25 09:00 01/22/25 21:20 Famotidine Inj 10 Mg/Ml Vial 2 Ml IVP 02/20/25 08:59 20 mg BID KENNEDY Administration Heparin Sodium (Porcine) 5,000 unit 01/18/25 21:00 01/22/25 21:22 Heparin Sod Inj 5000 Unit/Ml Vial SC 02/01/25 20:59 5,000 unit Q12HR KENNEDY Administration Hydralazine HCl 50 mg 01/20/25 22:00 01/23/25 05:52 Hydralazine Hcl 25 Mg Tablet PO 02/19/25 21:59 50 mg TID KENNEDY Administration Metoclopramide HCl 5 mg 01/21/25 08:14 Metoclopramide Inj 5 Mg/Ml Vial 2 Ml IVP 02/20/25 08:14 Q6HR PRN nausea or vomiting Protocol Nifedipine 30 mg 01/22/25 09:00 01/22/25 21:21 Nifedipine Xl 30 Mg Tabcr PO 02/21/25 08:59 30 mg BID KENNEDY Administration Plan 68-year-old female with a past medical history of Mild CAD by cath in June 2024, nonischemic cardiomyopathy with severe systolic congestive heart failure with an EF of 30 to 35% 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 Patient known to me from previous admission in June 2024 when she was diagnosed with severe systolic congestive heart failure. Patient was adequately diuresed and had a left and right heart cardiac catheterization performed at that time which showed mild CAD of 30% stenosis in the LAD. Nonischemic cardiomyopathy was diagnosed mostly secondary to methamphetamine abuse and history of drug abuse. Patient was started on some goal-directed medical therapy but did not follow-up regularly in the office. Patient apparently was admitted again in October 2024 when an echo was repeated and showed EF improved to 40 to 45%. Now she presents again with shortness of breath orthopnea as well as bilateral lower extremity edema. Patient continues to use methamphetamine and says that she has decreased the amount that she is using. Patient social situation is also not good as she was homeless previously a and was living in a trailer but at the present point of time does not have a home. Does not have anyone to take care of her closely or bring her to the appointments. Upon arrival to the ED, BP 206/135, saturating 97% on 6 L nasal cannula but upon evaluation saturating 94% on room air, HR 85, RR 20, afebrile. CBC unremarkable. VBG showed pH 7.17, PCO2 39, PO2 57. CHEM panel showed K 5.1, chloride 117, HCO3 16, BUN 72, creatinine 4, GFR 11, Mg 1.3, AST/ALT 50/51, alk phos 139, BNP > 3000, troponin 0.084 -> 0.077. UA showed 2+ protein, 1+ blood, 6 RBC. U tox positive for amphetamine. CXR showed mild vascular congestion, mildly enlarged cardiac contour, but no pneumonia or pulmonary edema. EKG showed HR 85, NSR, no ST or T wave abnormalities. On examination patient has significant bilateral crackles and has at least 1-2+ edema, puffy face as well as 2 or 6 systolic murmur heard at the apex. Difficult to assess the JVD. Assessment and plan: 1. Acute on chronic systolic CHF exacerbation 2. Acute on chronic kidney disease stage IV 3. Possible cardiorenal syndrome with hepatic congestion from the CHF exacerbation 4. Nonischemic cardiomyopathy mostly secondary to drug abuse 5. Mild CAD by cardiac cath in June 2024 6. Elevated LFTs mostly secondary to hepatic congestion 7. Mildly elevated troponins mostly secondary to NSTEMI type II 8. Hypertensive urgency 9. History of COPD not on home oxygen 10. Polysubstance abuse with meth abuse as well as history of smoking and continues to smoke currently 11. Breast cancer s/p bilateral mastectomy 1995 and history of breast implants 12. Homeless Patient presented with shortness of breath, leg swelling as well as orthopnea for the past few weeks. Patient on examination has bilateral crackles and has 1 to + leg edema along with puffy face. Patient is hypoxic requiring 4 to 6 L via nasal cannula on arrival which improved after diuresis. Chest x-ray does show mild vascular congestion and BNP was greater than 3280. Also patient presented with hypertensive urgency with a blood pressure of 206/135. BUN and creatinine were at 72 and 4.1. Patient baseline creatinine around 2.5-2.7 during the last admission even in November 2024 Patient has elevated LFTs also indicating hepatic congestion. Overall clinical picture suggest acute on chronic systolic congestive heart failure with cardiorenal syndrome presentation. Recommend aggressive diuresis with the Lasix 40 mg IV twice daily and can change to Bumex if there is no signs of urine output. Discontinued IV fluids for now. Strict input output, daily weights and 2 g sodium diet. Recent echo reviewed and showed an EF of 40 to 45% with mild systolic dysfunction and previous echo was severe systolic dysfunction with an EF of 30 to 35%. Patient appears to have not been taking her medications including any medications for the heart failure or for her blood pressure and presented with high blood pressure 206/135 mmHg. Recommend to aggressively diurese the patient and start the patient on amlodipine 10 mg once daily for now and will start beta-nidhi later once the patient is adequately diuresed. No BETTY inhibitor's or ARB's in view of the SREE on CKD Patient with acute kidney injury on CKD stage IV. Nephrology was also consulted by the primary team and patient might eventually need dialysis if kidney function does not improve with diuresis. Patient has mildly elevated troponins of 0.07 and 0.08 admitted mostly secondary to acute CHF exacerbation and patient already had echocardiogram which showed mild CAD in June 2024. Patient counseled regarding quitting smoking completely as well as drug abuse Patient counseled and recommended to make sure to show for follow-up appointments with PCP, nephrology as well as cardiology. Recommended social worker delinquency prevention as well as case management consult for placement for this patient and also will need possible rehab at the time of discharge including drug rehab. 01/19/2025-patient did not diurese much last night and will change the patient from Lasix to Bumex 2 mg IV twice a day for now. Continue strict input output, daily weights and 2 g sodium diet. Patient overall appears to be better in the evening around send output was greater than 1 L. Kidney function today showed creatinine of 3.8 and was 4.1 yesterday. Blood pressure is in the range of 160 to 180 mmHg. Continue amlodipine for now and will restart Coreg once patient is diuresed well.Rest of the vitals stable 01/20/2025 - Patient diuresed well with Bumex yesterday and was net negative around 1 to 2 L. BUN is 83 today and creatinine of 4.0 but sodium increased to 146 and chloride is also 112. Leg edema and facial edema has improved considerably but patient appears to be intravascularly depleted but still has some extravascular fluid with 1+ leg edema. Nephrology recommended to hold the Bumex for today and also to hold the fluid restriction and will reevaluate tomorrow morning for further diuresis based on the labs. 01/21/25 - Yesterday patient did drink up to 5 L of fluid after removing the fluid restriction. She is net +4 L from yesterday and appears to be fluid overloaded Discussed with nephrology team again and patient has cardiorenal syndrome and recommended to restart IV diuresis along with fluid restriction. As patient is hyponatremic causing intravascular depletion due to aggressive diuresis will decrease the Bumex dose to 1 mg IV once daily and for now Strict input output, daily weights and 2 g sodium diet. Patient again recommended to restrict her fluid intake. Patient blood pressure continues to be elevated for now continue with amlodipine 10 mg once daily and will restart the patient Coreg which is her home medication and add hydralazine if needed no BETTY or ARB given the CKD stage IV. 01/23/2025 Currently NPO for HD cath. Continued on BUMEX 1 mg daily and fluid restriction, had 2.2L urine output, overall 4.8L positive. Weight today 63.5, same as presentation. Has bibasilar crackles on exam, but no LE edema. Satting well on room air. Renal function remains poor, CR 3.3 > 3.6, GFR 14 > 13, BUN 77. CBC reviewed and appears at baseline. LFTs wnl, glucose 206. Corrected calcium 7.5, remainder elytes normal. At this point, cardiorenal type 2 still most likely dx, as she is very dependent on diuresis, goes into fluid overload whenever diuresis discontinued. However, she has poor tolerance for diuresis with worsening renal function. Nephrology recommended ultrafiltration twice a week, agree with plan. continue diuresis as pt with good urine output, fluid restriction and daily weights. BP not well controlled, SBP 150-160s despite multiple meds, including NIFEDIPINE, CARVEDILOL and HYDRALAZINE. However, BP, will likely improve with hemodialysis. Continue avoiding BETTY and ARB's in settings of CKD stage IV. Overall, high concern for HD and medication non-compliance given her living situation. Appears primary team working on stable housing, which she will need. Management of rest of the medical conditions as per primary team and other consultants. Thank you for the consult and allowing me to participate in the care of the patient. Cardiology will continue to follow.
[2025-01-23 08:50] LABS: INR 1.1 (0.9-1.3); Partial Thromboplastin Time 27.7 Seconds (22.0-36.0)
[2025-01-23] MEDS: BUMETANIDE INJ 0.25 MG/ML VIAL 4 ML 1 MG IVP (09:18)
[2025-01-23] MEDS: FAMOTIDINE INJ 10 MG/ML VIAL 2 ML 20 MG IVP ×2 (09:18→21:03)
--- NOTE | 2025-01-23 09:47 | PD.RESPRO ---
Documentation for date of: 01/23/25 Subjective Subjective Interval history: Ms. Freed is a 69-year-old female past medical history of HFrEF with a EF of 45 to 50%, CKD stage IV, hypertension, COPD, breast cancer status post unilateral mastectomy, meth abuse who came in because of shortness of breath. Patient was seen at bedside in the ED and was shivering because she was feeling cold. She is a poor historian and has been noncompliant with his medications as she states that she only takes her meds on and off. She does reveal that she has been using meth for about a week and the last time was this morning prior to admission. She has also been having episodes of diarrhea that were brown and nonbloody for about a week. She states that she has been eating well however that is questionable as she says her last meal was sometime yesterday in the afternoon and the only thing she had today was a sandwich given to her by the ED. In terms of her symptoms patient's main complaint was a shortness of breath with mild chest pressure and a mild abdominal tenderness however she denies any fevers, chills, flulike symptoms, nausea, vomiting or rashes. Patient does state that she has been having headaches which goes along with her uncontrolled blood pressure. The neurology team was consulted as patient's renal function is worse than usual.Renal ultrasound obtained on September this year showed bilateral renal parenchymal scar formation with right renal cortical thinning. Chloride was elevated at 117 without a bicarb of 16.4. BUN was 72 and creatinine was 4.4 from a baseline of 2.5. Lactic acid was normal at 1.3 however troponins were mildly elevated at 0.077 and BUN was greater than 30-80. UA had 2+ protein without leukocyte esterase and only rare bacteria. U-Tox was positive for meth 01/19/2025: Patient seen examined at bedside, resting comfortably. Patient endorses shortness of breath with mild distress, however saturating well on room air. Otherwise denies fever, chills, chest pain. Hemoglobin 11.4, chloride 115, bicarb 15 (decreased from yesterday). BUN 61, creatinine 3.8, eGFR 12, kidney function improving. Phosphorus 5.7, magnesium 1.8. On exam patient had bilateral edema and crackles in lungs. Suspect fluid overload, recommend diuretics. 01/20/2025: Patient seen and examined at bedside, resting comfortably. Patient continues to endorse shortness of breath, however improved from yesterday subjectively. Patient denies fever, chills, chest pain, nausea, vomiting. WBC 8.8, hemoglobin 11.4. Patient hypernatremic 146, asymptomatic. BUN 23, creatinine 4.0, EGFR 19. Kidney function worsening, patient has improved crackles and decreased edema, suspect overdiuresis. Recommend holding diuretics and pausing fluid restriction. 01/21/2025: Patient seen examined at bedside. Patient mildly distressed, worsening shortness of breath. Denies fever, chills, chest pain, nausea, vomiting. WBC 7.8, hemoglobin 11.3, sodium 146, chloride 110, bicarb 23.2. BUN 83, creatinine 4.0, EGFR 11. Patient had 5 L of oral intake yesterday, 1.5 L urine output. Suspect cardiorenal syndrome, recommend resuming diuretics and fluid restriction. Discussed possibility of needing dialysis with patient, if kidneys do not improve. 01/22/2025 patient currently seen in telemetry. More alert and awake. Shortness of breath much better. She put out good urine with 1 mg IV Bumex. Recommended to continue with fluid restriction and IV diuretics. Vital signs have been stable hemoglobin 12.2, sodium 147, potassium 4.3, BUN 72, creatinine 3.3, calcium 7.9, LFTs normal. Hep panel ordered. 01/23/2025: Patient seen and examined at bedside, resting comfortably. On room air. Denies SOB, chest pain. agreable to dialysis, although expresses some anxiety. WBC 6.8, Hg 11.8. Sodium 145, chloride 104, bicarb 28.4, BUN 77, creatinine 1.5, eGFR 13. Corrected calcium 7.9. Plan to place dialysis catheter today, will likely continue outpatient dialysis 2/week. TB test ordered, hep panel negative. Exam Vital Signs Temp Pulse Resp BP Pulse Ox O2 Del Method O2 Flow Rate 96.9 F 72 22 H 155/90 H 98 Room Air 2 01/23/25 08:00 01/23/25 09:18 01/23/25 08:00 01/23/25 09:18 01/23/25 08:00 01/23/25 08:00 01/22/25 00:00 Narrative Exam GENERAL APPEARANCE: Patient seems to be comfortable, adequately hydrated and nourished. NECK: Neck supple, no JVD or bruit Patient had right breast implant CARDIOVASCULAR: Heart regular, no murmurs LUNGS/CHEST: Crackles in lower lung shin ABDOMEN: Soft, nontender, nondistended. No masses. Normal bowel sounds. EXTREMITIES: 1+ edema in the lower extremities SKIN: Skin exam normal without any rashes MUSCULOSKELETAL: in bed-able to move her extremities NEUROLOGICAL : No neurological deficits Objective Labs 01/23/25 05:00 01/23/25 05:00 Labs: Laboratory Results - last 24 hr 01/22/25 01/22/25 01/23/25 05:03 11:59 05:00 WBC 6.8 RBC 3.72 L Hgb 11.8 L Hct 36.2 MCV 97 MCH 31.7 MCHC 32.6 RDW Std Deviation 57.8 H Plt Count 198 Neut % (Auto) 73 Lymph % (Auto) 17 [place] % (Auto) 7 Eos % (Auto) 3 Baso % (Auto) 1 Neut # (Auto) 5.0 Lymph # (Auto) 1.1 [place] # (Auto) 0.5 Eos # (Auto) 0.2 Baso # (Auto) 0.1 Immature Gran # (Auto) 0.02 H Absolute Nucleated RBC 0.00 Immature Gran % 0 Nucleated RBC % 0 PT 12.0 INR 1.1 APTT 27.7 Sodium 147 H 145 Potassium 4.3 4.0 Chloride 107 104 Carbon Dioxide 29.2 28.4 Anion Gap 11 13 BUN 72 H 77 H Creatinine 3.3 H 3.6 H Estim Creat Clear Calc 14.7 L 12.4 L eGFR 14 L* 13 L* BUN/Creatinine Ratio 22 H 21 H Glucose 94 206 H D Calculated Osmolality 313 H 317 H Calcium 7.6 L 7.5 L Corrected Calcium 7.9 L 7.9 L Phosphorus 3.4 Total Bilirubin 0.2 L AST 15 ALT 16 Alkaline Phosphatase 95 Total Protein 5.8 Albumin 3.6 3.5 Globulin 2.3 Albumin/Globulin Ratio 1.5 Hepatitis A IgM Ab Non Reactive Hep Bs Antigen Non Reactive Hep B Core IgM Ab Non Reactive Hepatitis C Antibody Non Reactive ABG Interpretation ABG results: 01/18/25 01/18/25 09:50 13:43 VBG pH 7.11 L 7.17 L VBG pCO2 50 39 D VBG pO2 38 57 VBG Base Excess -14 L -14 L Quality Measures Quality Measures VTE prophylaxis Advance care planning discussed with:: patient Assessment & Plan Assessment Current Active Medications: Generic Name Dose Route Start Last Admin Trade Name Freq PRN Reason Stop Dose Admin Acetaminophen 650 mg 01/18/25 14:24 Acetaminophen 325 Mg Tablet PO 02/17/25 14:23 Q6H PRN Fever >100.4 or pain 1-3 Albuterol/Ipratropium 3 ml 01/18/25 14:28 Albuterol/Ipratropium (Duoneb) Rt Dee 3 Ml Nebu INH 02/17/25 14:27 Q2HR PRN SHORTNESS OF BREATH OR WHEEZE Bumetanide 1 mg 01/21/25 14:15 01/23/25 09:18 Bumetanide Inj 0.25 Mg/Ml Vial 4 Ml IVP 02/20/25 14:14 1 mg QDAY KENNEDY Administration Carvedilol 25 mg 01/22/25 17:30 01/23/25 07:45 Carvedilol 12.5 Mg Tablet PO 02/21/25 17:29 Not Given BIDWM KENNEDY Docusate Sodium 100 mg 01/18/25 14:24 Docusate Sod 100 Mg Capsule PO 02/17/25 14:23 QDAY PRN CONSTIPATION Protocol Famotidine 20 mg 01/21/25 09:00 01/23/25 09:18 Famotidine Inj 10 Mg/Ml Vial 2 Ml IVP 02/20/25 08:59 20 mg BID KENNEDY Administration Heparin Sodium (Porcine) 5,000 unit 01/18/25 21:00 01/22/25 21:22 Heparin Sod Inj 5000 Unit/Ml Vial SC 02/01/25 20:59 5,000 unit Q12HR KENNEDY Administration Hydralazine HCl 50 mg 01/20/25 22:00 01/23/25 05:52 Hydralazine Hcl 25 Mg Tablet PO 02/19/25 21:59 50 mg TID KENNEDY Administration Metoclopramide HCl 5 mg 01/21/25 08:14 Metoclopramide Inj 5 Mg/Ml Vial 2 Ml IVP 02/20/25 08:14 Q6HR PRN nausea or vomiting Protocol Nifedipine 30 mg 01/22/25 09:00 01/23/25 09:16 Nifedipine Xl 30 Mg Tabcr PO 02/21/25 08:59 Not Given BID KENNEDY Plan 69-year-old female past medical history of HFrEF with a EF of 45 to 50%, CKD stage IV, hypertension, COPD, breast cancer status post unilateral mastectomy, meth abuse admitted for acute hypoxic respiratory failure and SREE #SREE on CKD #History of CKD stage IV #Non anion gap metabolic acidosis #Hypernatremia, asymptomatic Patient presents scented with elevated creatinine of 4.0 from a baseline of 2.5 and a BUN of 72. Patient has been noncompliant with her medications She has not been taking her Lasix and her BNP is 3280. However clinically patient is dehydrated with dry mucous membranes, decreased capillary refill. Patient received 1 dose of Lasix in the ER. Patient's lactic acid was normal at 1.3. Chloride was 117 and bicarb was 16.4 with a VBG showing a pH of 7.17 She has a history of HFrEF with previous echo showing 45 to 50% EF. Likely underlying cardiorenal syndrome Acidosis likely from persistent GI loses Patient kidney function is improving, however bicarb levels decreased. Patient received IV fluids yesterday, appears volume overloaded today. Crackles, edema improved notably. However kidney function has worsened, patient now hypernatremic. Suspect overdiuresis, patient receiving 2 mg Bumex IV twice daily. Held morning dose of Bumex, recommend pausing diuresis and fluid restriction. Patient drinks 5 L of fluid over 24-hour period, with 1.5 L urinary output. No short of breath the following morning with little change in kidney function. ? Recommend 2 L fluid restriction, Bumex 1 mg IV daily ? Trend renal function ? Avoid nephrotoxic medications ? Control hypertension ? Strict ZAKI's - Agree with Bicitra 30 mL p.o. twice daily - plan for dialysis cathter placement followed by hemodialysis today - TB test pending - Hep panel negative #Hypertensive emergency #Troponinemia #HFrEF exacerbation #Meth abuse #COPD #Diarrhea ? Managed as per primary team Thank you for allowing us to be part of patient care during her time at [facility] Plan of care discussed with attending Dr. Pulido. Reji Elliott MD PGY?1 Attending Provider Attestation/Addendum Patient currently seen and examined with resident physician Dr. Mac. Note reviewed, agree with findings and recommendations. Clinically patient looks rather hypovolemic with 2 mg of Bumex and less than a liter fluid restriction. Spoke to Dr. Rocio Casper-hold diuretics, fluid restriction today and see if there is any improvement in renal function. If patient goes back into fluid overload probably she has cardiorenal syndrome and might benefit from ultrafiltration. She understood and agreed with the plan of care.. Echocardiogram 40 to 45%. Continue with diuretics. Added Bicitra 01/21/2025 patient drank 5.2 L. More short of breath. Currently seems to be in cardiorenal syndrome. Spoke to Dr. Morris. Resume diuretics, fluid restriction 2 L/day. Had a long conversation with the patient regarding cardiorenal syndrome and need for dialysis if there is no improvement in renal function to maintain euvolemic state. Patient agreed. Will plan for dialysis on Thursday if BUN and creatinine continues to be on the higher side. Care discussed with primary team. 01/23/2025 Clinically looks euvolemic. Multiple hospitalizations for CHF exacerbations. Cannot stop diuretics- pt goes into fluid overload. Spoek to Pt, cardiorenal syndrome and need for Seq UF/ HD 2/weekly to maintain euvolemic state and prevent recurrent hospitizations- she agreed. Will order Catheter, dialysis. PPD, Hep panel, Op dialysis will be arranged
[2025-01-23] MEDS: LIDOCAINE INJ PF 1% 5 ML VIAL 10 ML INFL (10:20)
[2025-01-23] MEDS: SODIUM CHLORIDE 0.9% 500 ML 500 ML 20 ML IV (10:30)
[2025-01-23] MEDS: fentaNYL CIT INJ 50 mCg/ML AMP 2ML 75 MCG IVP (10:41)
[2025-01-23] MEDS: HEPARIN SOD INJ 5000 UNIT/ML VIAL 10 ML 3800 UNIT INTRACATH (11:18)
--- NOTE | 2025-01-23 11:28 | PC.SS ---
Follow up note: SS attempted to see patient this morning but she was in IR. Patient to start new hemodialysis.
[2025-01-23] MEDS: carVEDILOL 12.5 MG TABLET 25 MG PO ×2 (12:04→17:37)
[2025-01-23] MEDS: NIFEdipine XL 30 MG TABCR PO ×2 (12:05→21:03)
[2025-01-23] MEDS: TUBERCULIN PPD INJ 5 UNIT/0.1 ML DOSE ID (12:25)
[2025-01-23] MEDS: ACETAMINOPHEN 325 MG TABLET 650 MG PO ×2 (12:31→23:57)
--- NOTE | 2025-01-23 14:30 | PD.RESPRO ---
Documentation for date of: 01/23/25 Subjective Subjective Interval history: Patient seen today at the bedside found awake, alert, oriented x 3. No overnight events reported. Vital signs and labs reviewed. Patient had dialysis catheter placed and will begin dialysis sessions per nephrology recommendations due to declining kidney function, despite diuresis. Exam Vital Signs Temp Pulse Resp BP Pulse Ox O2 Del Method O2 Flow Rate 96.9 F 74 22 H 173/101 H 97 Room Air 3 01/23/25 12:00 01/23/25 14:03 01/23/25 12:00 01/23/25 14:03 01/23/25 12:00 01/23/25 12:00 01/23/25 10:50 Narrative Exam Physical Exam GENERAL: NAD, AAOx3 HEENT: Moist mucosa. Eyes open, symmetrical, & clear CARDIO: Heart RRR, no obvious murmurs PULM: No noted coughing/dyspnea CTA B/L, no R/W/R, Right breast implant with mastectomy of left GI: Abdomen soft, nondistended, no pain on palpation. BSx4 SKIN/MSK/EXT: No wounds/rashes/edema/amputations, no pain on palpation. Pedal pulses present B/L NEURO: AAOx3, no focal neuro deficits, able to move all 4 extremities Objective Labs 01/26/25 05:57 01/26/25 05:57 Labs: Laboratory Results - last 24 hr 01/22/25 01/23/25 05:03 05:00 WBC 6.8 RBC 3.72 L Hgb 11.8 L Hct 36.2 MCV 97 MCH 31.7 MCHC 32.6 RDW Std Deviation 57.8 H Plt Count 198 Neut % (Auto) 73 Lymph % (Auto) 17 [place] % (Auto) 7 Eos % (Auto) 3 Baso % (Auto) 1 Neut # (Auto) 5.0 Lymph # (Auto) 1.1 [place] # (Auto) 0.5 Eos # (Auto) 0.2 Baso # (Auto) 0.1 Immature Gran # (Auto) 0.02 H Absolute Nucleated RBC 0.00 Immature Gran % 0 Nucleated RBC % 0 PT 12.0 INR 1.1 APTT 27.7 Sodium 145 Potassium 4.0 Chloride 104 Carbon Dioxide 28.4 Anion Gap 13 BUN 77 H Creatinine 3.6 H Estim Creat Clear Calc 12.4 L eGFR 13 L* BUN/Creatinine Ratio 21 H Glucose 206 H D Calculated Osmolality 317 H Calcium 7.5 L Corrected Calcium 7.9 L Total Bilirubin 0.2 L AST 15 ALT 16 Alkaline Phosphatase 95 Total Protein 5.8 Albumin 3.5 Globulin 2.3 Albumin/Globulin Ratio 1.5 Hepatitis A IgM Ab Non Reactive Hep Bs Antigen Non Reactive Hep B Core IgM Ab Non Reactive Hepatitis C Antibody Non Reactive ABG Interpretation ABG results: 01/18/25 01/18/25 09:50 13:43 VBG pH 7.11 L 7.17 L VBG pCO2 50 39 D VBG pO2 38 57 VBG Base Excess -14 L -14 L Quality Measures Quality Measures VTE prophylaxis Advance care planning discussed with:: patient Assessment & Plan Assessment Current Active Medications: Generic Name Dose Route Start Last Admin Trade Name Freq PRN Reason Stop Dose Admin Acetaminophen 650 mg 01/18/25 14:24 01/23/25 12:31 Acetaminophen 325 Mg Tablet PO 02/17/25 14:23 650 mg Q6H PRN Administration Fever >100.4 or pain 1-3 Albuterol/Ipratropium 3 ml 01/18/25 14:28 Albuterol/Ipratropium (Duoneb) Rt Dee 3 Ml Nebu INH 02/17/25 14:27 Q2HR PRN SHORTNESS OF BREATH OR WHEEZE Bumetanide 1 mg 01/21/25 14:15 01/23/25 09:18 Bumetanide Inj 0.25 Mg/Ml Vial 4 Ml IVP 02/20/25 14:14 1 mg QDAY KENNEDY Administration Carvedilol 25 mg 01/22/25 17:30 01/23/25 12:04 Carvedilol 12.5 Mg Tablet PO 02/21/25 17:29 25 mg BIDWM KENNEDY Administration Docusate Sodium 100 mg 01/18/25 14:24 Docusate Sod 100 Mg Capsule PO 02/17/25 14:23 QDAY PRN CONSTIPATION Protocol Famotidine 20 mg 01/21/25 09:00 01/23/25 09:18 Famotidine Inj 10 Mg/Ml Vial 2 Ml IVP 02/20/25 08:59 20 mg BID KENNEDY Administration Heparin Sodium (Porcine) 5,000 unit 01/18/25 21:00 01/22/25 21:22 Heparin Sod Inj 5000 Unit/Ml Vial SC 02/01/25 20:59 5,000 unit Q12HR KENNEDY Administration Hydralazine HCl 50 mg 01/20/25 22:00 01/23/25 14:03 Hydralazine Hcl 25 Mg Tablet PO 02/19/25 21:59 50 mg TID KENNEDY Administration Metoclopramide HCl 5 mg 01/21/25 08:14 Metoclopramide Inj 5 Mg/Ml Vial 2 Ml IVP 02/20/25 08:14 Q6HR PRN nausea or vomiting Protocol Nifedipine 30 mg 01/22/25 09:00 01/23/25 12:05 Nifedipine Xl 30 Mg Tabcr PO 02/21/25 08:59 30 mg BID KENNEDY Administration Plan 69 y/o F with PMHx significant for hypertension, CKD, breast cancer s/p resection, COPD, CHF presents with chief complaint of shortness of breath, negative for metabolic acidosis with SREE on CKD. #SREE on CKD IV #Acute diarrhea to R/O C.diff #Hypertensive urgency-resolved Uncertain etiology at this point; differentials include cardiorenal syndrome secondary to HFmEF, worsening CKD, prerenal azotemia from diarrhea Patient has acidosis as stated. Bicarb 16.4, chloride 117, lactic acid 0.3, VBG showed pH 7.17, pCO2 39. Patient reports 5-day history of diarrhea, potential source. Differential for SREE includes cardiorenal syndrome, hypertensive emergency, and dehydration secondary to diarrhea. BNP greater than 3000. Patient appears dry on exam, dry mucous membranes, no edema, no crackles in lung. Cardiology and nephrology consulted. Kidney functions improving with repeat renal panel showing improvement in creatinine - HD catheter placed today, will begin HD sessions, per nephrology reccs -Stool studies pending -Nephrology consulted, appreciate recommendations -Trial of Bumex 1 mg daily -Increase Coreg to 25 mg p.o. twice daily -Continue hydralazine 50mg TID, will increase as tolerated -Avoid nephrotoxins -Renally dose medication #Acute decompensated heart failure #HFmEF [EF 45-50%] #Cardiorenal syndrome #Elevated troponins, chronically elevated On presentation patient came in with shortness of breath associated with paroxysmal nocturnal dyspnea, orthopnea and mild lower extremity edema. Patient does have history of smoking THC and methamphetamine use. On admission patient had bilateral crackles however mucous membranes were dry and pitting edema was trace. Echo from 10/2024 shows: Normal LV size and wall thickness mild global hypokinesis. Estimated EF 45-50%. Normal RV size and function. Estimated RVSP 45 mm Hg. Severe biatrial dilatation. Mild MAC. with Mild to moderate MR. Moderate TR. Mild PI. IVC dilated. Chest x-ray showed some vascular congestion BNP of over 3000 with mildly elevated troponins -Continue Bumex 1 mg daily -Fluid restriction 1800cc -Strict ins and outs -Daily weights -Keep K >4, Mg >2 -Cardiology consulted, appreciate recommendations #COPD #Hypertension Patient has history as stated. Patient does not take any of her meds. On presentation, patient BNP greater than 3000, however appears clinically dry on exam. Patient complains of shortness of breath, but is not appear to be having COPD exacerbation, no wheezing on exam, no increased cough or sputum production. -on nifedipine to 30 mg p.o. twice daily -on carvedilol to 25 mg p.o. twice daily -DuoNebs ordered as needed #Polysubstance abuse Patient has history of polysubstance abuse, including methamphetamine, alcohol, marijuana. Patient denies alcohol use, but admits to meth and marijuana. U tox positive for meth. -Monitor for signs of withdrawal -Academic Records Specialist patient regarding resources for addiction Case discussed with attending Dr. Ammy Thomas MD PGY-1 Hospital Management: DVT prophylaxis: Heparin GI prophylaxis: None Diet: Cardiac, renal, fluid restrict 2000cc Lines: Peripheral IV, HD catheter Code status: Full code Attending Provider Attestation/Addendum 69-year-old female with multiple comorbidities including breast cancer status post resection, hypertension, hyperlipidemia, CKD and heart failure with reduced ejection fraction who presented with acute systolic heart failure exacerbation and acute kidney injury superimposed on CKD. During course of hospitalization, patient continued to have worsening kidney function with associated metabolic acidosis and concern for cardiorenal syndrome. Plan to continue IV diuretic therapy and appreciate nephrology input. He is to have worsening kidney function and plan to obtain TDC and hemodialysis. Afterwards, patient will need 3 sessions of hemodialysis prior to discharge and dialysis chair time. I reviewed above note and agree with findings and plans. I have also personally examined the patient with medicine team and went over assessment and plan with medical team including civil engineering intern and resident physician.
--- NOTE | 2025-01-23 15:04 | PC.SS ---
Addendum entered by Nat Benedict 01/23/25 15:51: SS met with patient at bedside to discuss d/c plans. Patient states she was living in the back of a friends van. She receives Social Security income. Patient states she was previously at [facility] and stayed 2 weeks about 2 months ago. Patient has a friend, Jonh, she states she can probably stay with once she leaves rehab. SS discussed SNF and patient agreeable. [facility] to do an onsite eval today with patient. Patient will need 3 sessions of dialysis and o/p chair time. Original Note: Follow up note: Patient had cath perm placed today. New dialysis. SS will discuss SNF placement with patient
[2025-01-24] VITALS (31 sets, daily range): BP systolic 146–197; BP diastolic 67–109; PULSE 61–101; RESP 12–97; TEMP 36.1–36.8; O2SAT 91–99; BMI 23.5
[2025-01-24] MEDS: hydrALAZINE INJ 20 MG/ML VIAL 10 MG IV ×2 (01:05→16:39)
[2025-01-24] MEDS: hydrALAZINE HCL 25 MG TABLET 50 MG PO (05:17)
[2025-01-24 07:32] LABS: Basophils # (Auto) 0.1 Thou/mm3 (0.0-0.2); Basophils % (Auto) 1 % (0-2.5); Eosinophils # (Auto) 0.2 Thou/mm3 (0.0-0.5); Eosinophils % (Auto) 2 % (0-10); Hematocrit 33.3 % (36.0-46.0); Hemoglobin 11.2 g/dL (12.0-16.0); Immature Granulocytes % (Auto) 1 % (0-0); Immature Granulocytes Auto 0.04 Thou/mm3 (0.00-0.00); Lymphocytes % (Auto) 13 % (10-50); Mean Corpuscular HGB Conc 33.6 g/dl (31.0-37.0); Mean Corpuscular Hemoglobin 31.9 pg (25.0-35.0); Mean Corpuscular Volume 95 fL (80-100); Monocytes # (Auto) 0.8 Thou/mm3 (0.0-0.8); Monocytes % (Auto) 10 % (0-12); Neutrophils # (Auto) 5.7 Thou/mm3 (1.8-7.7); Neutrophils % (Auto) 73 % (37-80); Nucleated Red Blood Cell % 0 /100 WBC (0); Platelet Count 230 Thou/mm3 (140-440); Red Blood Count 3.51 Miln/mm3 (4.00-5.20); White Blood Count 7.8 Thou/mm3 (3.6-11.0)
[2025-01-24 07:47] LABS: Alanine Aminotransferase 18 U/L (10-49); Albumin, Serum 3.7 gm/dL (3.4-4.8); Albumin/Globulin Ratio 1.6 (1.2-2.2); Alkaline Phosphatase 85 U/L (46-116); Anion Gap 11 (7-16); Aspartate Amino Transferase 18 U/L (0-34); BUN/Creatinine Ratio 19 Ratio (12-20); Bilirubin,Total 0.2 mg/dL (0.3-1.2); Blood Urea Nitrogen 74 mg/dL (9-23); Calcium 7.9 mg/dL (8.3-10.6); Calcium (Corrected) 8.1 mg/dL (8.5-10.1); Carbon Dioxide 26.7 mMol/L (20.0-31.0); Chloride 106 mMol/L (98-107); Creatinine (Component) 3.8 mg/dL (0.6-1.3); Estimated Creatinine Clearance 11.7 mL/min (>60); Globulin 2.3 gm/dL (2.3-3.5); Glucose 94 mg/dL (74-106); Magnesium 1.4 mg/dL (1.6-2.6); Osmolality,Calculated 308 (275-295); Potassium 4.5 mMol/L (3.4-5.1); Sodium 144 mMol/L (136-145); eGFR 12 See Note
--- NOTE | 2025-01-24 08:31 | PD.RESPRO ---
Documentation for date of: 01/24/25 Subjective Subjective Interval history: Examined at bedside. In pleasant mood, feels well today. She had HD cath put in yesterday, scheduled for hemodialysis today. She received a dose of BUMEX yesterday, had 580 cc urine output, overall 4.2 L net positive. Afebrile. Blood pressure stable 151/92, HR 65. CHEM panel showing BUN 74, creatinine 3.83 slightly up, GFR 12. Magnesium 1.4, corrected calcium 8.1, remainder electrolyte WNL. Appears she has placement at [facility], which is ideal for continued outpatient hemodialysis. Will continue with BUMEX 1 mg PO daily. HD to be done twice weekly. Exam Vital Signs Temp Pulse Resp BP Pulse Ox O2 Del Method O2 Flow Rate 97.5 F 65 18 151/92 H 94 L Room Air 3 01/24/25 04:37 01/24/25 05:17 01/24/25 04:37 01/24/25 05:17 01/24/25 04:37 01/24/25 04:37 01/23/25 10:50 Narrative Exam General: AOx3, no acute distress, NAD, on room air. Right HD cath noted. HEENT: dry mucous membranes, NC/AT, bilateral sclera anicteric Cardiovascular: regular rate and rhythm, S1/S2 present, no murmurs appreciated Pulmonary: mild bibasilar crackle, no wheezing. Abdominal: soft, non-tender, non-distended, no rebound/guarding, normal bowel sounds present Musculoskeletal: No BLE pitting edema, large right-sided breast implant, normal ROM Skin: warm and dry, intact, no rashes Neuro: CN II-XII intact, no focal deficits Objective Labs 01/25/25 05:45 01/25/25 05:45 Labs: Laboratory Results - last 24 hr 01/23/25 01/24/25 05:00 06:59 WBC 7.8 RBC 3.51 L Hgb 11.2 L Hct 33.3 L MCV 95 MCH 31.9 MCHC 33.6 RDW Std Deviation 57.0 H Plt Count 230 D Neut % (Auto) 73 Lymph % (Auto) 13 [place] % (Auto) 10 Eos % (Auto) 2 Baso % (Auto) 1 Neut # (Auto) 5.7 Lymph # (Auto) 1.0 [place] # (Auto) 0.8 Eos # (Auto) 0.2 Baso # (Auto) 0.1 Immature Gran # (Auto) 0.04 H Absolute Nucleated RBC 0.00 Immature Gran % 1 H Nucleated RBC % 0 PT 12.0 INR 1.1 APTT 27.7 Sodium 144 Potassium 4.5 D Chloride 106 Carbon Dioxide 26.7 Anion Gap 11 BUN 74 H Creatinine 3.8 H Estim Creat Clear Calc 11.7 L eGFR 12 L* BUN/Creatinine Ratio 19 Glucose 94 D Calculated Osmolality 308 H Calcium 7.9 L Corrected Calcium 8.1 L Magnesium 1.4 L Total Bilirubin 0.2 L AST 18 ALT 18 Alkaline Phosphatase 85 Total Protein 6.0 Albumin 3.7 Globulin 2.3 Albumin/Globulin Ratio 1.6 ABG Interpretation ABG results: 01/18/25 01/18/25 09:50 13:43 VBG pH 7.11 L 7.17 L VBG pCO2 50 39 D VBG pO2 38 57 VBG Base Excess -14 L -14 L Quality Measures Quality Measures VTE prophylaxis Advance care planning discussed with:: patient Assessment & Plan Assessment Current Active Medications: Generic Name Dose Route Start Last Admin Trade Name Freq PRN Reason Stop Dose Admin Acetaminophen 650 mg 01/18/25 14:24 01/23/25 23:57 Acetaminophen 325 Mg Tablet PO 02/17/25 14:23 650 mg Q6H PRN Administration Fever >100.4 or pain 1-3 Albuterol/Ipratropium 3 ml 01/18/25 14:28 Albuterol/Ipratropium (Duoneb) Rt Dee 3 Ml Nebu INH 02/17/25 14:27 Q2HR PRN SHORTNESS OF BREATH OR WHEEZE Bumetanide 1 mg 01/21/25 14:15 01/23/25 09:18 Bumetanide Inj 0.25 Mg/Ml Vial 4 Ml IVP 02/20/25 14:14 1 mg QDAY KENNEDY Administration Carvedilol 25 mg 01/22/25 17:30 01/23/25 17:37 Carvedilol 12.5 Mg Tablet PO 02/21/25 17:29 25 mg BIDWM KENNEDY Administration Docusate Sodium 100 mg 01/18/25 14:24 Docusate Sod 100 Mg Capsule PO 02/17/25 14:23 QDAY PRN CONSTIPATION Protocol Famotidine 20 mg 01/21/25 09:00 01/23/25 21:03 Famotidine Inj 10 Mg/Ml Vial 2 Ml IVP 02/20/25 08:59 20 mg BID KENNEDY Administration Heparin Sodium (Porcine) 5,000 unit 01/18/25 21:00 01/22/25 21:22 Heparin Sod Inj 5000 Unit/Ml Vial SC 02/01/25 20:59 5,000 unit Q12HR KENNEDY Administration Hydralazine HCl 50 mg 01/20/25 22:00 01/24/25 05:17 Hydralazine Hcl 25 Mg Tablet PO 02/19/25 21:59 50 mg TID KENNEDY Administration Magnesium Sulfate 4 gm in 50 mls @ 12.5 mls/hr 01/24/25 07:57 Magnesium Sulfate Ivpb IV 01/24/25 11:56 X1 ONE Albumin Human 25 gm in 100 mls @ 100 mls/min 01/24/25 08:25 Albuminar-25 Ivpb IV PRN PRN DIALYSIS Metoclopramide HCl 5 mg 01/21/25 08:14 Metoclopramide Inj 5 Mg/Ml Vial 2 Ml IVP 02/20/25 08:14 Q6HR PRN nausea or vomiting Protocol Nifedipine 30 mg 01/22/25 09:00 01/23/25 21:03 Nifedipine Xl 30 Mg Tabcr PO 02/21/25 08:59 30 mg BID KENNEDY Administration Plan 68-year-old female with a past medical history of Mild CAD by cath in June 2024, nonischemic cardiomyopathy with severe systolic congestive heart failure with an EF of 30 to 35% 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 Patient known to me from previous admission in June 2024 when she was diagnosed with severe systolic congestive heart failure. Patient was adequately diuresed and had a left and right heart cardiac catheterization performed at that time which showed mild CAD of 30% stenosis in the LAD. Nonischemic cardiomyopathy was diagnosed mostly secondary to methamphetamine abuse and history of drug abuse. Patient was started on some goal-directed medical therapy but did not follow-up regularly in the office. Patient apparently was admitted again in October 2024 when an echo was repeated and showed EF improved to 40 to 45%. Now she presents again with shortness of breath orthopnea as well as bilateral lower extremity edema. Patient continues to use methamphetamine and says that she has decreased the amount that she is using. Patient social situation is also not good as she was homeless previously a and was living in a trailer but at the present point of time does not have a home. Does not have anyone to take care of her closely or bring her to the appointments. Upon arrival to the ED, BP 206/135, saturating 97% on 6 L nasal cannula but upon evaluation saturating 94% on room air, HR 85, RR 20, afebrile. CBC unremarkable. VBG showed pH 7.17, PCO2 39, PO2 57. CHEM panel showed K 5.1, chloride 117, HCO3 16, BUN 72, creatinine 4, GFR 11, Mg 1.3, AST/ALT 50/51, alk phos 139, BNP > 3000, troponin 0.084 -> 0.077. UA showed 2+ protein, 1+ blood, 6 RBC. U tox positive for amphetamine. CXR showed mild vascular congestion, mildly enlarged cardiac contour, but no pneumonia or pulmonary edema. EKG showed HR 85, NSR, no ST or T wave abnormalities. On examination patient has significant bilateral crackles and has at least 1-2+ edema, puffy face as well as 2 or 6 systolic murmur heard at the apex. Difficult to assess the JVD. Assessment and plan: 1. Acute on chronic systolic CHF exacerbation 2. Acute on chronic kidney disease stage IV 3. Possible cardiorenal syndrome with hepatic congestion from the CHF exacerbation 4. Nonischemic cardiomyopathy mostly secondary to drug abuse 5. Mild CAD by cardiac cath in June 2024 6. Elevated LFTs mostly secondary to hepatic congestion 7. Mildly elevated troponins mostly secondary to NSTEMI type II 8. Hypertensive urgency 9. History of COPD not on home oxygen 10. Polysubstance abuse with meth abuse as well as history of smoking and continues to smoke currently 11. Breast cancer s/p bilateral mastectomy 1995 and history of breast implants 12. Homeless Patient presented with shortness of breath, leg swelling as well as orthopnea for the past few weeks. Patient on examination has bilateral crackles and has 1 to + leg edema along with puffy face. Patient is hypoxic requiring 4 to 6 L via nasal cannula on arrival which improved after diuresis. Chest x-ray does show mild vascular congestion and BNP was greater than 3280. Also patient presented with hypertensive urgency with a blood pressure of 206/135. BUN and creatinine were at 72 and 4.1. Patient baseline creatinine around 2.5-2.7 during the last admission even in November 2024 Patient has elevated LFTs also indicating hepatic congestion. Overall clinical picture suggest acute on chronic systolic congestive heart failure with cardiorenal syndrome presentation. Recommend aggressive diuresis with the Lasix 40 mg IV twice daily and can change to Bumex if there is no signs of urine output. Discontinued IV fluids for now. Strict input output, daily weights and 2 g sodium diet. Recent echo reviewed and showed an EF of 40 to 45% with mild systolic dysfunction and previous echo was severe systolic dysfunction with an EF of 30 to 35%. Patient appears to have not been taking her medications including any medications for the heart failure or for her blood pressure and presented with high blood pressure 206/135 mmHg. Recommend to aggressively diurese the patient and start the patient on amlodipine 10 mg once daily for now and will start beta-nidhi later once the patient is adequately diuresed. No BETTY inhibitor's or ARB's in view of the SREE on CKD Patient with acute kidney injury on CKD stage IV. Nephrology was also consulted by the primary team and patient might eventually need dialysis if kidney function does not improve with diuresis. Patient has mildly elevated troponins of 0.07 and 0.08 admitted mostly secondary to acute CHF exacerbation and patient already had echocardiogram which showed mild CAD in June 2024. Patient counseled regarding quitting smoking completely as well as drug abuse Patient counseled and recommended to make sure to show for follow-up appointments with PCP, nephrology as well as cardiology. Recommended social services aide as well as case management consult for placement for this patient and also will need possible rehab at the time of discharge including drug rehab. 01/19/2025-patient did not diurese much last night and will change the patient from Lasix to Bumex 2 mg IV twice a day for now. Continue strict input output, daily weights and 2 g sodium diet. Patient overall appears to be better in the evening around send output was greater than 1 L. Kidney function today showed creatinine of 3.8 and was 4.1 yesterday. Blood pressure is in the range of 160 to 180 mmHg. Continue amlodipine for now and will restart Coreg once patient is diuresed well.Rest of the vitals stable 01/20/2025 - Patient diuresed well with Bumex yesterday and was net negative around 1 to 2 L. BUN is 83 today and creatinine of 4.0 but sodium increased to 146 and chloride is also 112. Leg edema and facial edema has improved considerably but patient appears to be intravascularly depleted but still has some extravascular fluid with 1+ leg edema. Nephrology recommended to hold the Bumex for today and also to hold the fluid restriction and will reevaluate tomorrow morning for further diuresis based on the labs. 01/21/25 - Yesterday patient did drink up to 5 L of fluid after removing the fluid restriction. She is net +4 L from yesterday and appears to be fluid overloaded Discussed with nephrology team again and patient has cardiorenal syndrome and recommended to restart IV diuresis along with fluid restriction. As patient is hyponatremic causing intravascular depletion due to aggressive diuresis will decrease the Bumex dose to 1 mg IV once daily and for now Strict input output, daily weights and 2 g sodium diet. Patient again recommended to restrict her fluid intake. Patient blood pressure continues to be elevated for now continue with amlodipine 10 mg once daily and will restart the patient Coreg which is her home medication and add hydralazine if needed no BETTY or ARB given the CKD stage IV. 01/23/2025 Currently NPO for HD cath. Continued on BUMEX 1 mg daily and fluid restriction, had 2.2L urine output, overall 4.8L positive. Weight today 63.5, same as presentation. Has bibasilar crackles on exam, but no LE edema. Satting well on room air. Renal function remains poor, CR 3.3 > 3.6, GFR 14 > 13, BUN 77. CBC reviewed and appears at baseline. LFTs wnl, glucose 206. Corrected calcium 7.5, remainder elytes normal. At this point, cardiorenal type 2 still most likely dx, as she is very dependent on diuresis, goes into fluid overload whenever diuresis discontinued. However, she has poor tolerance for diuresis with worsening renal function. Nephrology recommended ultrafiltration twice a week, agree with plan. continue diuresis as pt with good urine output, fluid restriction and daily weights. BP not well controlled, SBP 150-160s despite multiple meds, including NIFEDIPINE, CARVEDILOL and HYDRALAZINE. However, BP, will likely improve with hemodialysis. Continue avoiding BETTY and ARB's in settings of CKD stage IV. Overall, high concern for HD and medication non-compliance given her living situation. Appears primary team working on stable housing, which she will need. 01/24/2025 HD cath placed, scheduled for HD session today. had 580 cc urine output with BUMEX 1 mg. Overall 4.2 L net positive. No improvement in renal function, CR 3.8, BUN 74, EGFR 12. Magnesium 1.4, corrected calcium 8.1, remainder electrolyte WNL. CBC stable. Will continue BUMEX 1 mg daily, and HD twice a week. BP 151/92 and will likely improve with ultrafiltration. Continue with current blood pressure meds. Management of rest of the medical conditions as per primary team and other consultants. Thank you for the consult and allowing me to participate in the care of the patient. Cardiology will continue to follow. Thank you for the opportunity to participate in the patient's care. Case was discussed with attending, Dr. Mauricio. Jacquie Eduardo DO PGYI Attending Provider Attestation/Addendum I have personally seen and examined the patient separately on the above date of service and discussed the plan of care with the resident. I reviewed the resident Dr. Jacquie Eduardo consultation progress note and agree with the resident findings and plan in the note above and have also edited the documentation to reflect my findings and plan. Pillo Mauricio M.D. Interventional Cardiology
[2025-01-24] MEDS: NIFEdipine XL 30 MG TABCR PO ×2 (10:53→21:02)
[2025-01-24] MEDS: carVEDILOL 12.5 MG TABLET 25 MG PO ×2 (10:53→16:38)
[2025-01-24] MEDS: HEPARIN SOD INJ 1000 UNIT/ML VIAL 10 ML 3800 UNIT INDWELLCAT (11:40)
[2025-01-24] MEDS: Magnesium Sulfate 4 GM Ivpb 4 GM/50 ML BAG IV (11:57)
[2025-01-24] MEDS: FAMOTIDINE INJ 10 MG/ML VIAL 2 ML 20 MG IVP ×2 (11:57→20:59)
--- NOTE | 2025-01-24 12:09 | PC.SS ---
MUSICIAN INSTRUMENTAL confirmed with patient preferred SNF is [facility].
--- NOTE | 2025-01-24 12:18 | PC.SS ---
PASSR completed. Patient meets Level II criteria. PASSR follow up pending.
--- NOTE | 2025-01-24 13:11 | PD.RESPRO ---
Documentation for date of: 01/24/25 Subjective Subjective Interval history: Ms. Freed is a 69-year-old female past medical history of HFrEF with a EF of 45 to 50%, CKD stage IV, hypertension, COPD, breast cancer status post unilateral mastectomy, meth abuse who came in because of shortness of breath. Patient was seen at bedside in the ED and was shivering because she was feeling cold. She is a poor historian and has been noncompliant with his medications as she states that she only takes her meds on and off. She does reveal that she has been using meth for about a week and the last time was this morning prior to admission. She has also been having episodes of diarrhea that were brown and nonbloody for about a week. She states that she has been eating well however that is questionable as she says her last meal was sometime yesterday in the afternoon and the only thing she had today was a sandwich given to her by the ED. In terms of her symptoms patient's main complaint was a shortness of breath with mild chest pressure and a mild abdominal tenderness however she denies any fevers, chills, flulike symptoms, nausea, vomiting or rashes. Patient does state that she has been having headaches which goes along with her uncontrolled blood pressure. The neurology team was consulted as patient's renal function is worse than usual.Renal ultrasound obtained on September this year showed bilateral renal parenchymal scar formation with right renal cortical thinning. Chloride was elevated at 117 without a bicarb of 16.4. BUN was 72 and creatinine was 4.4 from a baseline of 2.5. Lactic acid was normal at 1.3 however troponins were mildly elevated at 0.077 and BUN was greater than 30-80. UA had 2+ protein without leukocyte esterase and only rare bacteria. U-Tox was positive for meth 01/19/2025: Patient seen examined at bedside, resting comfortably. Patient endorses shortness of breath with mild distress, however saturating well on room air. Otherwise denies fever, chills, chest pain. Hemoglobin 11.4, chloride 115, bicarb 15 (decreased from yesterday). BUN 61, creatinine 3.8, eGFR 12, kidney function improving. Phosphorus 5.7, magnesium 1.8. On exam patient had bilateral edema and crackles in lungs. Suspect fluid overload, recommend diuretics. 01/20/2025: Patient seen and examined at bedside, resting comfortably. Patient continues to endorse shortness of breath, however improved from yesterday subjectively. Patient denies fever, chills, chest pain, nausea, vomiting. WBC 8.8, hemoglobin 11.4. Patient hypernatremic 146, asymptomatic. BUN 23, creatinine 4.0, EGFR 19. Kidney function worsening, patient has improved crackles and decreased edema, suspect overdiuresis. Recommend holding diuretics and pausing fluid restriction. 01/21/2025: Patient seen examined at bedside. Patient mildly distressed, worsening shortness of breath. Denies fever, chills, chest pain, nausea, vomiting. WBC 7.8, hemoglobin 11.3, sodium 146, chloride 110, bicarb 23.2. BUN 83, creatinine 4.0, EGFR 11. Patient had 5 L of oral intake yesterday, 1.5 L urine output. Suspect cardiorenal syndrome, recommend resuming diuretics and fluid restriction. Discussed possibility of needing dialysis with patient, if kidneys do not improve. 01/22/2025 patient currently seen in telemetry. More alert and awake. Shortness of breath much better. She put out good urine with 1 mg IV Bumex. Recommended to continue with fluid restriction and IV diuretics. Vital signs have been stable hemoglobin 12.2, sodium 147, potassium 4.3, BUN 72, creatinine 3.3, calcium 7.9, LFTs normal. Hep panel ordered. 01/23/2025: Patient seen and examined at bedside, resting comfortably. On room air. Denies SOB, chest pain. Agreeable to dialysis, although expresses some anxiety. WBC 6.8, Hg 11.8. Sodium 145, chloride 104, bicarb 28.4, BUN 77, creatinine 1.5, eGFR 13. Corrected calcium 7.9. Plan to place dialysis catheter today, will likely continue outpatient dialysis 2/week. TB test ordered, hep panel negative. 01/24/2025: Patient seen examined at bedside, resting comfortably. Patient remains on room air, denying shortness of breath, chest pain. Has dialysis catheter in place, clean and dry without erythema. WBC 7.8, hemoglobin 11.2. Sodium 144, potassium 4.5, bicarb 26.7, BUN 74, creatinine 3.8, EGFR 12. Corrected calcium 8.1. Plan for hemodialysis today, 2-hour session, with 1 L fluid removal. Exam Vital Signs Temp Pulse Resp BP Pulse Ox O2 Del Method O2 Flow Rate 97.1 F 72 18 166/88 H 96 Room Air 3 01/24/25 12:00 01/24/25 12:00 01/24/25 12:00 01/24/25 12:00 01/24/25 12:00 01/24/25 12:00 01/23/25 10:50 Narrative Exam GENERAL APPEARANCE: Patient seems to be comfortable, adequately hydrated and nourished. NECK: Neck supple, no JVD or bruit Patient had right breast implant. Right sided tunneled dialysis catheter in place. CARDIOVASCULAR: Heart regular, no murmurs LUNGS/CHEST: Crackles in lower lung shin ABDOMEN: Soft, nontender, nondistended. No masses. Normal bowel sounds. EXTREMITIES: 1+ edema in the lower extremities SKIN: Skin exam normal without any rashes MUSCULOSKELETAL: in bed-able to move her extremities NEUROLOGICAL : No neurological deficits Objective Labs 01/29/25 05:12 01/29/25 05:12 Labs: Laboratory Results - last 24 hr 01/24/25 06:59 WBC 7.8 RBC 3.51 L Hgb 11.2 L Hct 33.3 L MCV 95 MCH 31.9 MCHC 33.6 RDW Std Deviation 57.0 H Plt Count 230 D Neut % (Auto) 73 Lymph % (Auto) 13 [place] % (Auto) 10 Eos % (Auto) 2 Baso % (Auto) 1 Neut # (Auto) 5.7 Lymph # (Auto) 1.0 [place] # (Auto) 0.8 Eos # (Auto) 0.2 Baso # (Auto) 0.1 Immature Gran # (Auto) 0.04 H Absolute Nucleated RBC 0.00 Immature Gran % 1 H Nucleated RBC % 0 Sodium 144 Potassium 4.5 D Chloride 106 Carbon Dioxide 26.7 Anion Gap 11 BUN 74 H Creatinine 3.8 H Estim Creat Clear Calc 11.7 L eGFR 12 L* BUN/Creatinine Ratio 19 Glucose 94 D Calculated Osmolality 308 H Calcium 7.9 L Corrected Calcium 8.1 L Magnesium 1.4 L Total Bilirubin 0.2 L AST 18 ALT 18 Alkaline Phosphatase 85 Total Protein 6.0 Albumin 3.7 Globulin 2.3 Albumin/Globulin Ratio 1.6 ABG Interpretation ABG results: 01/18/25 01/18/25 09:50 13:43 VBG pH 7.11 L 7.17 L VBG pCO2 50 39 D VBG pO2 38 57 VBG Base Excess -14 L -14 L Quality Measures Quality Measures VTE prophylaxis Advance care planning discussed with:: patient Assessment & Plan Assessment Current Active Medications: Generic Name Dose Route Start Last Admin Trade Name Freq PRN Reason Stop Dose Admin Acetaminophen 650 mg 01/18/25 14:24 01/23/25 23:57 Acetaminophen 325 Mg Tablet PO 02/17/25 14:23 650 mg Q6H PRN Administration Fever >100.4 or pain 1-3 Albuterol/Ipratropium 3 ml 01/18/25 14:28 Albuterol/Ipratropium (Duoneb) Rt Dee 3 Ml Nebu INH 02/17/25 14:27 Q2HR PRN SHORTNESS OF BREATH OR WHEEZE Bumetanide 1 mg 01/25/25 09:00 Bumetanide 0.5 Mg Tablet PO 02/24/25 08:59 QDAY KENNEDY Carvedilol 25 mg 01/22/25 17:30 01/24/25 10:53 Carvedilol 12.5 Mg Tablet PO 02/21/25 17:29 25 mg BIDWM KENNEDY Administration Docusate Sodium 100 mg 01/18/25 14:24 Docusate Sod 100 Mg Capsule PO 02/17/25 14:23 QDAY PRN CONSTIPATION Protocol Famotidine 20 mg 01/21/25 09:00 01/24/25 11:57 Famotidine Inj 10 Mg/Ml Vial 2 Ml IVP 02/20/25 08:59 20 mg BID KENNEDY Administration Heparin Sodium (Porcine) 5,000 unit 01/18/25 21:00 01/22/25 21:22 Heparin Sod Inj 5000 Unit/Ml Vial SC 02/01/25 20:59 5,000 unit Q12HR KENNEDY Administration Heparin Sodium (Porcine) 3,800 unit 01/24/25 09:52 01/24/25 11:40 Heparin Sod Inj 1000 Unit/Ml Vial 10 Ml INDWELLCAT 02/07/25 09:51 3,800 unit PRN PRN Administration DIALYSIS Hydralazine HCl 100 mg 01/24/25 14:00 Hydralazine Hcl 25 Mg Tablet PO 02/23/25 13:59 TID KENNEDY Albumin Human 25 gm in 100 mls @ 100 mls/min 01/24/25 08:25 Albuminar-25 Ivpb IV PRN PRN DIALYSIS Metoclopramide HCl 5 mg 01/21/25 08:14 Metoclopramide Inj 5 Mg/Ml Vial 2 Ml IVP 02/20/25 08:14 Q6HR PRN nausea or vomiting Protocol Nifedipine 30 mg 01/22/25 09:00 01/24/25 10:53 Nifedipine Xl 30 Mg Tabcr PO 02/21/25 08:59 30 mg BID KENNEDY Administration Plan 69-year-old female past medical history of HFrEF with a EF of 45 to 50%, CKD stage IV, hypertension, COPD, breast cancer status post unilateral mastectomy, meth abuse admitted for acute hypoxic respiratory failure and SREE #SREE on CKD #History of CKD stage IV #Non anion gap metabolic acidosis #Hypernatremia, asymptomatic Patient presents scented with elevated creatinine of 4.0 from a baseline of 2.5 and a BUN of 72. Patient has been noncompliant with her medications She has not been taking her Lasix and her BNP is 3280. However clinically patient is dehydrated with dry mucous membranes, decreased capillary refill. Patient received 1 dose of Lasix in the ER. Patient's lactic acid was normal at 1.3. Chloride was 117 and bicarb was 16.4 with a VBG showing a pH of 7.17 She has a history of HFrEF with previous echo showing 45 to 50% EF. Likely underlying cardiorenal syndrome Acidosis likely from persistent GI loses Patient kidney function is improving, however bicarb levels decreased. Patient received IV fluids yesterday, appears volume overloaded today. Crackles, edema improved notably. However kidney function has worsened, patient now hypernatremic. Suspect overdiuresis, patient receiving 2 mg Bumex IV twice daily. Held morning dose of Bumex, recommend pausing diuresis and fluid restriction. Patient drinks 5 L of fluid over 24-hour period, with 1.5 L urinary output. No short of breath the following morning with little change in kidney function. Tunneled dialysis catheter in place, plan for hemodialysis today. Hepatitis panel negative. ? Fluid restriction 1.8 L daily ? Trend renal function ? Avoid nephrotoxic medications ? Control hypertension ? Strict ZAKI's - Agree with Bicitra 30 mL p.o. twice daily - TB test pending - Hemodialysis today, plan for 1 L fluid removal - Plan for patient to continue hemodialysis outpatient after discharge, twice weekly at [facility] #Hypertensive emergency #Troponinemia #HFrEF exacerbation #Meth abuse #COPD #Diarrhea ? Managed as per primary team Thank you for allowing us to be part of patient care during her time at [facility] Plan of care discussed with attending Dr. Pulido. Reji Elliott MD PGY?1 Attending Provider Attestation/Addendum Patient currently seen and examined with resident physician Dr. Mac. Note reviewed, agree with findings and recommendations. Patient currently seen in dialysis. Hemodialysis for 2 hours, Qb 200, 4K, Ca 2,5, ultrafiltration 1 L, Epogen 6000, no heparin ordered. Plan of care discussed with the dialysis nurse. Please see dialysis flowsheet for further details. Outpatient dialysis will be arranged. Dr. Suh will be covering for me.
--- NOTE | 2025-01-24 14:37 | PC.SS ---
COFFERDAM CONSTRUCTION SUPERVISOR informed by patient's preferred SNF that facility will not be granted authorization for patient's placement. COFFERDAM CONSTRUCTION SUPERVISOR will inform patient and discuss other SNF's that have accepted the patient for placement.
--- NOTE | 2025-01-24 14:55 | ESPR_ITS ---
Documentation for date of: 01/24/25 Subjective Subjective Interval history: Patient seen today at the bedside found awake, alert, oriented x 3. No overnight events reported. Vital signs and labs reviewed. Bumex transition from IV to p.o. 1 mg daily. Hydralazine increased to 100 mg 3 times daily for optimal blood pressure control. Mild crackles heard bilaterally on physical exam. Patient had dialysis session today for 2 hours with 1 L fluid removal. Tolerated adequately. Will continue to monitor at this time. Exam Vital Signs Temp Pulse Resp BP Pulse Ox O2 Del Method O2 Flow Rate 97.1 F 101 H 16 166/88 H 95 Room Air 3 01/24/25 12:00 01/24/25 14:39 01/24/25 14:39 01/24/25 12:00 01/24/25 14:39 01/24/25 12:00 01/23/25 10:50 Narrative Exam Physical Exam GENERAL: NAD, AAOx3 HEENT: Moist mucosa. Eyes open, symmetrical, & clear CARDIO: Heart RRR, no obvious murmurs PULM: No noted coughing/dyspnea, mild crackles bilaterally, Right breast implant with mastectomy of left GI: Abdomen soft, nondistended, no pain on palpation. BSx4 SKIN/MSK/EXT: No wounds/rashes/edema/amputations, no pain on palpation. Pedal pulses present B/L NEURO: AAOx3, no focal neuro deficits, able to move all 4 extremities Objective Labs 01/26/25 05:57 01/26/25 05:57 Labs: Laboratory Results - last 24 hr 01/24/25 06:59 WBC 7.8 RBC 3.51 L Hgb 11.2 L Hct 33.3 L MCV 95 MCH 31.9 MCHC 33.6 RDW Std Deviation 57.0 H Plt Count 230 D Neut % (Auto) 73 Lymph % (Auto) 13 [place] % (Auto) 10 Eos % (Auto) 2 Baso % (Auto) 1 Neut # (Auto) 5.7 Lymph # (Auto) 1.0 [place] # (Auto) 0.8 Eos # (Auto) 0.2 Baso # (Auto) 0.1 Immature Gran # (Auto) 0.04 H Absolute Nucleated RBC 0.00 Immature Gran % 1 H Nucleated RBC % 0 Sodium 144 Potassium 4.5 D Chloride 106 Carbon Dioxide 26.7 Anion Gap 11 BUN 74 H Creatinine 3.8 H Estim Creat Clear Calc 11.7 L eGFR 12 L* BUN/Creatinine Ratio 19 Glucose 94 D Calculated Osmolality 308 H Calcium 7.9 L Corrected Calcium 8.1 L Magnesium 1.4 L Total Bilirubin 0.2 L AST 18 ALT 18 Alkaline Phosphatase 85 Total Protein 6.0 Albumin 3.7 Globulin 2.3 Albumin/Globulin Ratio 1.6 ABG Interpretation ABG results: 01/18/25 01/18/25 09:50 13:43 VBG pH 7.11 L 7.17 L VBG pCO2 50 39 D VBG pO2 38 57 VBG Base Excess -14 L -14 L Quality Measures Quality Measures VTE prophylaxis Advance care planning discussed with:: patient Assessment & Plan Assessment Current Active Medications: Generic Name Dose Route Start Last Admin Trade Name Freq PRN Reason Stop Dose Admin Acetaminophen 650 mg 01/18/25 14:24 01/23/25 23:57 Acetaminophen 325 Mg Tablet PO 02/17/25 14:23 650 mg Q6H PRN Administration Fever >100.4 or pain 1-3 Albuterol/Ipratropium 3 ml 01/18/25 14:28 Albuterol/Ipratropium (Duoneb) Rt Dee 3 Ml Nebu INH 02/17/25 14:27 Q2HR PRN SHORTNESS OF BREATH OR WHEEZE Bumetanide 1 mg 01/25/25 09:00 Bumetanide 0.5 Mg Tablet PO 02/24/25 08:59 QDAY KENNEDY Carvedilol 25 mg 01/22/25 17:30 01/24/25 10:53 Carvedilol 12.5 Mg Tablet PO 02/21/25 17:29 25 mg BIDWM KENNEDY Administration Docusate Sodium 100 mg 01/18/25 14:24 Docusate Sod 100 Mg Capsule PO 02/17/25 14:23 QDAY PRN CONSTIPATION Protocol Famotidine 20 mg 01/21/25 09:00 01/24/25 11:57 Famotidine Inj 10 Mg/Ml Vial 2 Ml IVP 02/20/25 08:59 20 mg BID KENNEDY Administration Heparin Sodium (Porcine) 5,000 unit 01/18/25 21:00 01/22/25 21:22 Heparin Sod Inj 5000 Unit/Ml Vial SC 02/01/25 20:59 5,000 unit Q12HR KNENEDY Administration Heparin Sodium (Porcine) 3,800 unit 01/24/25 09:52 01/24/25 11:40 Heparin Sod Inj 1000 Unit/Ml Vial 10 Ml INDWELLCAT 02/07/25 09:51 3,800 unit PRN PRN Administration DIALYSIS Hydralazine HCl 100 mg 01/24/25 14:00 01/24/25 14:02 Hydralazine Hcl 25 Mg Tablet PO 02/23/25 13:59 Not Given TID KENNEDY Albumin Human 25 gm in 100 mls @ 100 mls/min 01/24/25 08:25 Albuminar-25 Ivpb IV PRN PRN DIALYSIS Metoclopramide HCl 5 mg 01/21/25 08:14 Metoclopramide Inj 5 Mg/Ml Vial 2 Ml IVP 02/20/25 08:14 Q6HR PRN nausea or vomiting Protocol Nifedipine 30 mg 01/22/25 09:00 01/24/25 10:53 Nifedipine Xl 30 Mg Tabcr PO 02/21/25 08:59 30 mg BID KENNEDY Administration Plan 69 y/o F with PMHx significant for hypertension, CKD, breast cancer s/p resection, COPD, CHF presents with chief complaint of shortness of breath, negative for metabolic acidosis with SREE on CKD. #SREE on CKD IV #Acute diarrhea to R/O C.diff #Hypertensive urgency-resolved Uncertain etiology at this point; differentials include cardiorenal syndrome secondary to HFmEF, worsening CKD, prerenal azotemia from diarrhea Patient has acidosis as stated. Bicarb 16.4, chloride 117, lactic acid 0.3, VBG showed pH 7.17, pCO2 39. Patient reports 5-day history of diarrhea, potential source. Differential for SREE includes cardiorenal syndrome, hypertensive emergency, and dehydration secondary to diarrhea. BNP greater than 3000. Patient appears dry on exam, dry mucous membranes, no edema, no crackles in lung. Cardiology and nephrology consulted. Kidney functions improving with repeat renal panel showing improvement in creatinine - HD today with 1L fluid removal -Stool studies pending -Nephrology consulted, appreciate recommendations -Trial of Bumex 1 mg PO daily -on Coreg to 25 mg p.o. twice daily -Continue hydralazine 100mg TID, will increase as tolerated -Avoid nephrotoxins -Renally dose medication #Acute decompensated heart failure #HFmEF [EF 45-50%] #Cardiorenal syndrome #Elevated troponins, chronically elevated On presentation patient came in with shortness of breath associated with paroxysmal nocturnal dyspnea, orthopnea and mild lower extremity edema. Patient does have history of smoking THC and methamphetamine use. On admission patient had bilateral crackles however mucous membranes were dry and pitting edema was trace. Echo from 10/2024 shows: Normal LV size and wall thickness mild global hypokinesis. Estimated EF 45-50%. Normal RV size and function. Estimated RVSP 45 mm Hg. Severe biatrial dilatation. Mild MAC. with Mild to moderate MR. Moderate TR. Mild PI. IVC dilated. Chest x-ray showed some vascular congestion BNP of over 3000 with mildly elevated troponins -Continue Bumex 1 mg PO daily -Fluid restriction 1800cc -Strict ins and outs -Daily weights -Keep K >4, Mg >2 -Cardiology consulted, appreciate recommendations #COPD #Hypertension Patient has history as stated. Patient does not take any of her meds. On presentation, patient BNP greater than 3000, however appears clinically dry on exam. Patient complains of shortness of breath, but is not appear to be having COPD exacerbation, no wheezing on exam, no increased cough or sputum production. -on nifedipine to 30 mg p.o. twice daily -on carvedilol to 25 mg p.o. twice daily -DuoNebs ordered as needed #Polysubstance abuse Patient has history of polysubstance abuse, including methamphetamine, alcohol, marijuana. Patient denies alcohol use, but admits to meth and marijuana. U tox positive for meth. -Monitor for signs of withdrawal -Control Room Operator patient regarding resources for addiction Hospital Management: DVT prophylaxis: Heparin GI prophylaxis: None Diet: Cardiac, renal, fluid restrict 2000cc Lines: Peripheral IV, HD catheter Code status: Full code Case discussed with my senior Dr. Grossman and my attending Dr. Ammy Thomas MD PGY-1 LPatient examined and case discussed with the team including attending physician. Note reviewed, I agree with the care plan as documented. Ms. Freed is a 69-year-old female who was admitted for acute decompensated HFmrEF 45-50%, cardiorenal syndrome and SREE on CKD stage IV, which progressed to stage V -ESRD. Patient received a vascular catheter and underwent HD x 2 today. She continues to have high blood pressure SBP 180?190s. As needed hydralazine in place, will optimize oral medications for better blood pressure control. Nephrology following, appreciate recommendations. Anticipate DC in 24 hours, once chair time is set up prior to DC. - Ayush Grossman MD, PGY 2 Disclaimer: The document may contain phonetic/typographic errors due to voice recognition software. These errors are purely due to imperfections in the software program and should not be misconstrued in any way to compromise the substance of the patient's medical care during this visit. L Attending Provider Attestation/Addendum 69-year-old female with multiple comorbidities including breast cancer status post resection, hypertension, hyperlipidemia, CKD and heart failure with reduced ejection fraction who presented with acute systolic heart failure exacerbation and acute kidney injury superimposed on CKD. During course of hospitalization, patient continued to have worsening kidney function with associated metabolic acidosis and concern for cardiorenal syndrome. Plan to continue IV diuretic therapy and appreciate nephrology input. He is to have worsening kidney function and plan to obtain TDC and hemodialysis. Afterwards, patient will need 3 sessions of hemodialysis prior to discharge and dialysis chair time. I reviewed above note and agree with findings and plans. I have also personally examined the patient with medicine team and went over assessment and plan with medical team including architect internship and resident physician.
--- NOTE | 2025-01-24 15:38 | PC.SS ---
Patient has agreed for DOPE WORKER to submit updated clinicals to [facility] for placement. Authorization pending.
--- NOTE | 2025-01-24 15:52 | PC.SS ---
Updated clinicals submitted to [facility] via [facility]. Response pending.
--- NOTE | 2025-01-24 15:53 | PC.SS ---
AFTERNOON BABYSITTER conducted phone contact with [facility] staff, Dago Rizvi. [facility] case to be closed. On line closure confirmed.
--- NOTE | 2025-01-24 15:53 | PC.SS ---
[facility] submitted to [facility] on line file exchange. PASSR level II has been closed out. No pending follow up required.
--- NOTE | 2025-01-24 16:06 | PC.NURSE ---
Notified Dr Mcginnis that patient had refused 1400 medication of hydralazine and for vitals to be taken. Upon 1600 vitals blood pressure was elevated at 196/87. Dr johnson input prn order.
--- NOTE | 2025-01-24 16:16 | PC.NURSE ---
Upon entering patient room, patient was getting personal clothes on, and stated that she was leaving. Dr Mathew came to bedside and spoke to patient. Patient agreed to remain for further care.
[2025-01-24] MEDS: hydrALAZINE HCL 25 MG TABLET 100 MG PO (21:02)
[2025-01-25] VITALS (30 sets, daily range): BP systolic 129–177; BP diastolic 61–91; PULSE 56–86; RESP 12–25; TEMP 36.1–37.1; O2SAT 94–98; BMI 23.5
[2025-01-25] MEDS: NIFEdipine XL 30 MG TABCR PO ×3 (05:08→20:20)
[2025-01-25] MEDS: hydrALAZINE HCL 25 MG TABLET 100 MG PO ×3 (05:08→20:19)
[2025-01-25 06:35] LABS: Basophils % (Auto) 1 % (0-2.5); Eosinophils # (Auto) 0.1 Thou/mm3 (0.0-0.5); Eosinophils % (Auto) 2 % (0-10); Hematocrit 34.5 % (36.0-46.0); Hemoglobin 11.5 g/dL (12.0-16.0); Immature Granulocytes % (Auto) 0 % (0-0); Immature Granulocytes Auto 0.03 Thou/mm3 (0.00-0.00); Lymphocytes # (Auto) 1.1 Thou/mm3 (1.0-4.8); Lymphocytes % (Auto) 16 % (10-50); Mean Corpuscular HGB Conc 33.3 g/dl (31.0-37.0); Mean Corpuscular Hemoglobin 31.8 pg (25.0-35.0); Mean Corpuscular Volume 95 fL (80-100); Monocytes # (Auto) 0.9 Thou/mm3 (0.0-0.8); Monocytes % (Auto) 13 % (0-12); Neutrophils # (Auto) 4.9 Thou/mm3 (1.8-7.7); Neutrophils % (Auto) 69 % (37-80); Nucleated Red Blood Cell % 0 /100 WBC (0); Platelet Count 208 Thou/mm3 (140-440); RDW Standard Deviation 55.9 fL (36.4-46.3); Red Blood Count 3.62 Miln/mm3 (4.00-5.20); White Blood Count 7.1 Thou/mm3 (3.6-11.0)
[2025-01-25 07:43] LABS: Alanine Aminotransferase 22 U/L (10-49); Albumin, Serum 3.8 gm/dL (3.4-4.8); Anion Gap 11 (7-16); Aspartate Amino Transferase 26 U/L (0-34); BUN/Creatinine Ratio 19 Ratio (12-20); Bilirubin,Total 0.2 mg/dL (0.3-1.2); Blood Urea Nitrogen 64 mg/dL (9-23); Calcium (Corrected) 8.2 mg/dL (8.5-10.1); Carbon Dioxide 25.2 mMol/L (20.0-31.0); Chloride 106 mMol/L (98-107); Creatinine (Component) 3.3 mg/dL (0.6-1.3); Estimated Creatinine Clearance 13.5 mL/min (>60); Globulin 2.3 gm/dL (2.3-3.5); Glucose 161 mg/dL (74-106); Magnesium 1.6 mg/dL (1.6-2.6); Osmolality,Calculated 304 (275-295); Potassium 4.4 mMol/L (3.4-5.1); Sodium 142 mMol/L (136-145); Total Protein 6.1 gm/dL (5.7-8.2); eGFR 14 See Note
[2025-01-25 07:44] LABS: Albumin/Globulin Ratio 1.7 (1.2-2.2); Alkaline Phosphatase 106 U/L (46-116)
--- NOTE | 2025-01-25 07:49 | PC.SS ---
MISSION PLANNER conducted phone contact with [facility] ([facility]) staff, Bud to confirm chair time for the patient. MISSION PLANNER informed that insurance authorization remains pending.
--- NOTE | 2025-01-25 08:06 | PC.SS ---
Patient participating with 2nd session of dialysis today.
[2025-01-25 08:42] LABS: HIV (1&2) Antibody Rapid Non-Reactive
--- NOTE | 2025-01-25 09:01 | PC.SS ---
Addendum entered by BRENNEN Herrera 01/25/25 15:08: SS follow up: contacted patient's insurance at [phone], to determine request a peer to peer discussion for the patient as she did not meet for SNF placement. Was informed that patient would need senior care care if not meeting for medical/physical therapy needs at a SNF. Addendum entered by BRENNEN Herrera 01/25/25 15:03: SS update: per Jessie at [facility], the patient was denied by insurance for SNF placement as she was contact guard assist and not meeting criteria. Addendum entered by BRENNEN Herrera 01/25/25 14:53: Rounding: pending chair time and authorization for SNF. Original Note: SS follow up note: spoke with Jessie at [facility] and she informs, she submitted for authorization late yesterday and authorization is pending at this time. Jessie is aware the patient is a new dialysis and is pending chair time to be established.
--- NOTE | 2025-01-25 11:10 | PD.RESPRO ---
Documentation for date of: 01/25/25 Subjective Subjective Interval history: Patient seen today at the dialysis unit found awake, alert, oriented x 3. No overnight events reported. Vitals and labs reviewed. Blood pressure continues to be elevated Coreg adjusted from 25 mg twice daily to 12.5, added clonidine 0.1 mg to blood pressure regimen. Patient currently pending authorization for chair time for hemodialysis sessions. Will continue to follow at this time. Exam Vital Signs Temp Pulse Resp BP Pulse Ox O2 Del Method O2 Flow Rate 97.8 F 64 18 165/86 H 94 L Room Air 3 01/25/25 10:35 01/25/25 11:07 01/25/25 10:35 01/25/25 11:07 01/25/25 10:35 01/25/25 08:00 01/23/25 10:50 Narrative Exam Physical Exam GENERAL: NAD, AAOx3 HEENT: Moist mucosa. Eyes open, symmetrical, & clear CARDIO: Heart RRR, no obvious murmurs PULM: No noted coughing/dyspnea, CTA B/L, Right breast implant with mastectomy of left GI: Abdomen soft, nondistended, no pain on palpation. BSx4 SKIN/MSK/EXT: No wounds/rashes/edema/amputations, no pain on palpation. Pedal pulses present B/L NEURO: AAOx3, no focal neuro deficits, able to move all 4 extremities Objective Labs 01/26/25 05:57 01/26/25 05:57 Labs: Laboratory Results - last 24 hr 01/25/25 05:45 WBC 7.1 RBC 3.62 L Hgb 11.5 L Hct 34.5 L MCV 95 MCH 31.8 MCHC 33.3 RDW Std Deviation 55.9 H Plt Count 208 Neut % (Auto) 69 Lymph % (Auto) 16 [place] % (Auto) 13 H Eos % (Auto) 2 Baso % (Auto) 1 Neut # (Auto) 4.9 Lymph # (Auto) 1.1 [place] # (Auto) 0.9 H Eos # (Auto) 0.1 Baso # (Auto) 0.0 Immature Gran # (Auto) 0.03 H Absolute Nucleated RBC 0.00 Immature Gran % 0 Nucleated RBC % 0 Sodium 142 Potassium 4.4 Chloride 106 Carbon Dioxide 25.2 Anion Gap 11 BUN 64 H Creatinine 3.3 H D Estim Creat Clear Calc 13.5 L eGFR 14 L* BUN/Creatinine Ratio 19 Glucose 161 H D Calculated Osmolality 304 H Calcium 8.0 L Corrected Calcium 8.2 L Phosphorus 4.0 Magnesium 1.6 Total Bilirubin 0.2 L AST 26 ALT 22 Alkaline Phosphatase 106 D Total Protein 6.1 Albumin 3.8 Globulin 2.3 Albumin/Globulin Ratio 1.7 HIV 1&2 Antibody Rapid Non-Reactive ABG Interpretation ABG results: 01/18/25 01/18/25 09:50 13:43 VBG pH 7.11 L 7.17 L VBG pCO2 50 39 D VBG pO2 38 57 VBG Base Excess -14 L -14 L Quality Measures Quality Measures VTE prophylaxis Advance care planning discussed with:: patient Assessment & Plan Assessment Current Active Medications: Generic Name Dose Route Start Last Admin Trade Name Freq PRN Reason Stop Dose Admin Acetaminophen 650 mg 01/18/25 14:24 01/23/25 23:57 Acetaminophen 325 Mg Tablet PO 02/17/25 14:23 650 mg Q6H PRN Administration Fever >100.4 or pain 1-3 Albuterol/Ipratropium 3 ml 01/18/25 14:28 Albuterol/Ipratropium (Duoneb) Rt Dee 3 Ml Nebu INH 02/17/25 14:27 Q2HR PRN SHORTNESS OF BREATH OR WHEEZE Bumetanide 1 mg 01/25/25 09:00 Bumetanide 0.5 Mg Tablet PO 02/24/25 08:59 QDAY KENNEDY Carvedilol 12.5 mg 01/25/25 17:30 Carvedilol 12.5 Mg Tablet PO 02/24/25 17:29 BIDWM KENNEDY Docusate Sodium 100 mg 01/18/25 14:24 Docusate Sod 100 Mg Capsule PO 02/17/25 14:23 QDAY PRN CONSTIPATION Protocol Famotidine 20 mg 01/21/25 09:00 01/24/25 20:59 Famotidine Inj 10 Mg/Ml Vial 2 Ml IVP 02/20/25 08:59 20 mg BID KENNEDY Administration Heparin Sodium (Porcine) 5,000 unit 01/18/25 21:00 01/22/25 21:22 Heparin Sod Inj 5000 Unit/Ml Vial SC 02/01/25 20:59 5,000 unit Q12HR KENNEDY Administration Heparin Sodium (Porcine) 3,800 unit 01/24/25 09:52 01/24/25 11:40 Heparin Sod Inj 1000 Unit/Ml Vial 10 Ml INDWELLCAT 02/07/25 09:51 3,800 unit PRN PRN Administration DIALYSIS Hydralazine HCl 100 mg 01/24/25 14:00 01/25/25 05:08 Hydralazine Hcl 25 Mg Tablet PO 02/23/25 13:59 100 mg TID KENNEDY Administration Hydralazine HCl 10 mg 01/24/25 17:04 Hydralazine Inj 20 Mg/Ml Vial IV 02/23/25 16:03 Q6H PRN SBP>160, hold if HR<60 Albumin Human 25 gm in 100 mls @ 100 mls/min 01/24/25 08:25 Albuminar-25 Ivpb IV PRN PRN DIALYSIS Magnesium Sulfate 4 gm in 50 mls @ 12.5 mls/hr 01/25/25 07:51 Magnesium Sulfate Ivpb IV 01/25/25 11:50 X1 ONE Metoclopramide HCl 5 mg 01/21/25 08:14 Metoclopramide Inj 5 Mg/Ml Vial 2 Ml IVP 02/20/25 08:14 Q6HR PRN nausea or vomiting Protocol Nifedipine 30 mg 01/24/25 22:00 01/25/25 05:08 Nifedipine Xl 30 Mg Tabcr PO 02/23/25 21:59 30 mg TID KENNEDY Administration Plan 69 y/o F with PMHx significant for hypertension, CKD, breast cancer s/p resection, COPD, CHF presents with chief complaint of shortness of breath, negative for metabolic acidosis with SREE on CKD. #SREE on CKD IV #Acute diarrhea-resolved #Hypertensive urgency-resolved Uncertain etiology at this point; differentials include cardiorenal syndrome secondary to HFmEF, worsening CKD, prerenal azotemia from diarrhea Patient has acidosis as stated. Bicarb 16.4, chloride 117, lactic acid 0.3, VBG showed pH 7.17, pCO2 39. Patient reports 5-day history of diarrhea, potential source. Differential for SREE includes cardiorenal syndrome, hypertensive emergency, and dehydration secondary to diarrhea. BNP greater than 3000. Patient appears dry on exam, dry mucous membranes, no edema, no crackles in lung. Cardiology and nephrology consulted. Kidney functions improving with repeat renal panel showing improvement in creatinine - HD today -Stool studies pending -Nephrology consulted, appreciate recommendations -on Bumex 1 mg PO daily -on Coreg to 12.5 mg p.o. twice daily - added clonidine 0.1mg BID - on nifedipine 30mg TID -Continue hydralazine 100mg TID, will increase as tolerated -Avoid nephrotoxins -Renally dose medication #Acute decompensated heart failure #HFmEF [EF 45-50%] #Cardiorenal syndrome #Elevated troponins, chronically elevated On presentation patient came in with shortness of breath associated with paroxysmal nocturnal dyspnea, orthopnea and mild lower extremity edema. Patient does have history of smoking THC and methamphetamine use. On admission patient had bilateral crackles however mucous membranes were dry and pitting edema was trace. Echo from 10/2024 shows: Normal LV size and wall thickness mild global hypokinesis. Estimated EF 45-50%. Normal RV size and function. Estimated RVSP 45 mm Hg. Severe biatrial dilatation. Mild MAC. with Mild to moderate MR. Moderate TR. Mild PI. IVC dilated. Chest x-ray showed some vascular congestion BNP of over 3000 with mildly elevated troponins -Continue Bumex 1 mg PO daily -Fluid restriction 1800cc -Strict ins and outs -Daily weights -Keep K >4, Mg >2 -Cardiology consulted, appreciate recommendations #COPD #Hypertension Patient has history as stated. Patient does not take any of her meds. On presentation, patient BNP greater than 3000, however appears clinically dry on exam. Patient complains of shortness of breath, but is not appear to be having COPD exacerbation, no wheezing on exam, no increased cough or sputum production. -on nifedipine to 30 mg p.o. TID daily -on carvedilol to 12.5 mg p.o. twice daily -on clonidine 0.1mg BID -DuoNebs ordered as needed #Polysubstance abuse Patient has history of polysubstance abuse, including methamphetamine, alcohol, marijuana. Patient denies alcohol use, but admits to meth and marijuana. U tox positive for meth. -Monitor for signs of withdrawal -[employer] patient regarding resources for addiction Hospital Management: Dispo: tele, pending chair time. DVT prophylaxis: Heparin GI prophylaxis: None Diet: Cardiac, renal, fluid restrict 2000cc Lines: Peripheral IV, HD catheter Code status: Full code Case discussed with my senior Dr. Grossman and my attending Dr. Ammy Thomas MD PGY-1 Patient examined and case discussed with the team including attending physician. Note reviewed, I agree with the care plan as documented. - Ayush Grossman MD, PGY 2 Disclaimer: The document may contain phonetic/typographic errors due to voice recognition software. These errors are purely due to imperfections in the software program and should not be misconstrued in any way to compromise the substance of the patient's medical care during this visit. Attending Provider Attestation/Addendum 69-year-old female with multiple comorbidities including breast cancer status post resection, hypertension, hyperlipidemia, CKD and heart failure with reduced ejection fraction who presented with acute systolic heart failure exacerbation and acute kidney injury superimposed on CKD. During course of hospitalization, patient continued to have worsening kidney function with associated metabolic acidosis and concern for cardiorenal syndrome. Plan to continue IV diuretic therapy and appreciate nephrology input. He is to have worsening kidney function and plan to obtain TDC and hemodialysis. Afterwards, patient will need 3 sessions of hemodialysis prior to discharge and dialysis chair time. I reviewed above note and agree with findings and plans. I have also personally examined the patient with medicine team and went over assessment and plan with medical team including bakery pastry internship and resident physician.
[2025-01-25] MEDS: HEPARIN SOD INJ 1000 UNIT/ML VIAL 10 ML 3800 UNIT INDWELLCAT (11:17)
[2025-01-25] MEDS: BUMETANIDE 0.5 MG TABLET 1 MG PO (11:57)
[2025-01-25] MEDS: cloNIDine HCL 0.1 MG TABLET PO ×2 (11:59→20:20)
[2025-01-25] MEDS: FAMOTIDINE INJ 10 MG/ML VIAL 2 ML 20 MG IVP (11:59)
--- NOTE | 2025-01-25 13:16 | PD.RESPRO ---
Documentation for date of: 01/25/25 Subjective Subjective Interval history: Ms. Freed is a 69-year-old female past medical history of HFrEF with a EF of 45 to 50%, CKD stage IV, hypertension, COPD, breast cancer status post unilateral mastectomy, meth abuse who came in because of shortness of breath. Patient was seen at bedside in the ED and was shivering because she was feeling cold. She is a poor historian and has been noncompliant with his medications as she states that she only takes her meds on and off. She does reveal that she has been using meth for about a week and the last time was this morning prior to admission. She has also been having episodes of diarrhea that were brown and nonbloody for about a week. She states that she has been eating well however that is questionable as she says her last meal was sometime yesterday in the afternoon and the only thing she had today was a sandwich given to her by the ED. In terms of her symptoms patient's main complaint was a shortness of breath with mild chest pressure and a mild abdominal tenderness however she denies any fevers, chills, flulike symptoms, nausea, vomiting or rashes. Patient does state that she has been having headaches which goes along with her uncontrolled blood pressure. The neurology team was consulted as patient's renal function is worse than usual.Renal ultrasound obtained on September this year showed bilateral renal parenchymal scar formation with right renal cortical thinning. Chloride was elevated at 117 without a bicarb of 16.4. BUN was 72 and creatinine was 4.4 from a baseline of 2.5. Lactic acid was normal at 1.3 however troponins were mildly elevated at 0.077 and BUN was greater than 30-80. UA had 2+ protein without leukocyte esterase and only rare bacteria. U-Tox was positive for meth 01/19/2025: Patient seen examined at bedside, resting comfortably. Patient endorses shortness of breath with mild distress, however saturating well on room air. Otherwise denies fever, chills, chest pain. Hemoglobin 11.4, chloride 115, bicarb 15 (decreased from yesterday). BUN 61, creatinine 3.8, eGFR 12, kidney function improving. Phosphorus 5.7, magnesium 1.8. On exam patient had bilateral edema and crackles in lungs. Suspect fluid overload, recommend diuretics. 01/20/2025: Patient seen and examined at bedside, resting comfortably. Patient continues to endorse shortness of breath, however improved from yesterday subjectively. Patient denies fever, chills, chest pain, nausea, vomiting. WBC 8.8, hemoglobin 11.4. Patient hypernatremic 146, asymptomatic. BUN 23, creatinine 4.0, EGFR 19. Kidney function worsening, patient has improved crackles and decreased edema, suspect overdiuresis. Recommend holding diuretics and pausing fluid restriction. 01/21/2025: Patient seen examined at bedside. Patient mildly distressed, worsening shortness of breath. Denies fever, chills, chest pain, nausea, vomiting. WBC 7.8, hemoglobin 11.3, sodium 146, chloride 110, bicarb 23.2. BUN 83, creatinine 4.0, EGFR 11. Patient had 5 L of oral intake yesterday, 1.5 L urine output. Suspect cardiorenal syndrome, recommend resuming diuretics and fluid restriction. Discussed possibility of needing dialysis with patient, if kidneys do not improve. 01/22/2025 patient currently seen in telemetry. More alert and awake. Shortness of breath much better. She put out good urine with 1 mg IV Bumex. Recommended to continue with fluid restriction and IV diuretics. Vital signs have been stable hemoglobin 12.2, sodium 147, potassium 4.3, BUN 72, creatinine 3.3, calcium 7.9, LFTs normal. Hep panel ordered. 01/23/2025: Patient seen and examined at bedside, resting comfortably. On room air. Denies SOB, chest pain. Agreeable to dialysis, although expresses some anxiety. WBC 6.8, Hg 11.8. Sodium 145, chloride 104, bicarb 28.4, BUN 77, creatinine 1.5, eGFR 13. Corrected calcium 7.9. Plan to place dialysis catheter today, will likely continue outpatient dialysis 2/week. TB test ordered, hep panel negative. 01/24/2025: Patient seen examined at bedside, resting comfortably. Patient remains on room air, denying shortness of breath, chest pain. Has dialysis catheter in place, clean and dry without erythema. WBC 7.8, hemoglobin 11.2. Sodium 144, potassium 4.5, bicarb 26.7, BUN 74, creatinine 3.8, EGFR 12. Corrected calcium 8.1. Plan for hemodialysis today, 2-hour session, with 1 L fluid removal. 01/25/2025: Patient seen today at the dialysis unit found awake, alert, oriented x 3. No overnight events reported. Vitals and labs reviewed. Patient received hemodialysis today, had about 1 L removed total dialysis hours 2 hours 30 minutes postdialysis weight 61.5 kg. Blood pressure continues to be elevated Coreg adjusted from 25 mg twice daily to 12.5, added clonidine 0.1 mg to blood pressure regimen. Patient currently pending authorization for chair time for hemodialysis sessions. Will continue to follow at this time. Exam Vital Signs Temp Pulse Resp BP Pulse Ox O2 Del Method O2 Flow Rate 97.4 F 79 25 H 158/89 H 95 Room Air 3 01/25/25 12:00 01/25/25 12:00 01/25/25 12:00 01/25/25 12:00 01/25/25 12:00 01/25/25 12:00 01/23/25 10:50 Narrative Exam GENERAL APPEARANCE: Patient seems to be comfortable, adequately hydrated and nourished. NECK: Neck supple, no JVD or bruit Patient had right breast implant. Right sided tunneled dialysis catheter in place. CARDIOVASCULAR: Heart regular, no murmurs LUNGS/CHEST: Crackles in lower lung shin ABDOMEN: Soft, nontender, nondistended. No masses. Normal bowel sounds. EXTREMITIES: 1+ edema in the lower extremities SKIN: Skin exam normal without any rashes MUSCULOSKELETAL: in bed-able to move her extremities NEUROLOGICAL : No neurological deficits Objective Labs 01/30/25 05:05 01/30/25 05:05 Labs: Laboratory Results - last 24 hr 01/25/25 05:45 WBC 7.1 RBC 3.62 L Hgb 11.5 L Hct 34.5 L MCV 95 MCH 31.8 MCHC 33.3 RDW Std Deviation 55.9 H Plt Count 208 Neut % (Auto) 69 Lymph % (Auto) 16 [place] % (Auto) 13 H Eos % (Auto) 2 Baso % (Auto) 1 Neut # (Auto) 4.9 Lymph # (Auto) 1.1 [place] # (Auto) 0.9 H Eos # (Auto) 0.1 Baso # (Auto) 0.0 Immature Gran # (Auto) 0.03 H Absolute Nucleated RBC 0.00 Immature Gran % 0 Nucleated RBC % 0 Sodium 142 Potassium 4.4 Chloride 106 Carbon Dioxide 25.2 Anion Gap 11 BUN 64 H Creatinine 3.3 H D Estim Creat Clear Calc 13.5 L eGFR 14 L* BUN/Creatinine Ratio 19 Glucose 161 H D Calculated Osmolality 304 H Calcium 8.0 L Corrected Calcium 8.2 L Phosphorus 4.0 Magnesium 1.6 Total Bilirubin 0.2 L AST 26 ALT 22 Alkaline Phosphatase 106 D Total Protein 6.1 Albumin 3.8 Globulin 2.3 Albumin/Globulin Ratio 1.7 HIV 1&2 Antibody Rapid Non-Reactive ABG Interpretation ABG results: 01/18/25 01/18/25 09:50 13:43 VBG pH 7.11 L 7.17 L VBG pCO2 50 39 D VBG pO2 38 57 VBG Base Excess -14 L -14 L Quality Measures Quality Measures VTE prophylaxis Advance care planning discussed with:: patient Assessment & Plan Assessment Current Active Medications: Generic Name Dose Route Start Last Admin Trade Name Freq PRN Reason Stop Dose Admin Acetaminophen 650 mg 01/18/25 14:24 01/23/25 23:57 Acetaminophen 325 Mg Tablet PO 02/17/25 14:23 650 mg Q6H PRN Administration Fever >100.4 or pain 1-3 Albuterol/Ipratropium 3 ml 01/18/25 14:28 Albuterol/Ipratropium (Duoneb) Rt Dee 3 Ml Nebu INH 02/17/25 14:27 Q2HR PRN SHORTNESS OF BREATH OR WHEEZE Bumetanide 1 mg 01/25/25 09:00 01/25/25 11:57 Bumetanide 0.5 Mg Tablet PO 02/24/25 08:59 1 mg QDAY KENNEDY Administration Carvedilol 12.5 mg 01/25/25 17:30 Carvedilol 12.5 Mg Tablet PO 02/24/25 17:29 BIDWM KENNEDY Docusate Sodium 100 mg 01/18/25 14:24 Docusate Sod 100 Mg Capsule PO 02/17/25 14:23 QDAY PRN CONSTIPATION Protocol Famotidine 20 mg 01/21/25 09:00 01/25/25 11:59 Famotidine Inj 10 Mg/Ml Vial 2 Ml IVP 02/20/25 08:59 20 mg BID KENNEDY Administration Heparin Sodium (Porcine) 5,000 unit 01/18/25 21:00 01/22/25 21:22 Heparin Sod Inj 5000 Unit/Ml Vial SC 02/01/25 20:59 5,000 unit Q12HR KENNEDY Administration Heparin Sodium (Porcine) 3,800 unit 01/24/25 09:52 01/25/25 11:17 Heparin Sod Inj 1000 Unit/Ml Vial 10 Ml INDWELLCAT 02/07/25 09:51 3,800 unit PRN PRN Administration DIALYSIS Hydralazine HCl 100 mg 01/24/25 14:00 01/25/25 05:08 Hydralazine Hcl 25 Mg Tablet PO 02/23/25 13:59 100 mg TID KENNEDY Administration Hydralazine HCl 10 mg 01/24/25 17:04 Hydralazine Inj 20 Mg/Ml Vial IV 02/23/25 16:03 Q6H PRN SBP>160, hold if HR<60 Albumin Human 25 gm in 100 mls @ 100 mls/min 01/24/25 08:25 Albuminar-25 Ivpb IV PRN PRN DIALYSIS Metoclopramide HCl 5 mg 01/21/25 08:14 Metoclopramide Inj 5 Mg/Ml Vial 2 Ml IVP 02/20/25 08:14 Q6HR PRN nausea or vomiting Protocol Nifedipine 30 mg 01/24/25 22:00 01/25/25 05:08 Nifedipine Xl 30 Mg Tabcr PO 02/23/25 21:59 30 mg TID KENNEDY Administration Plan 69-year-old female past medical history of HFrEF with a EF of 45 to 50%, CKD stage IV, hypertension, COPD, breast cancer status post unilateral mastectomy, meth abuse admitted for acute hypoxic respiratory failure and SREE #SREE on CKD #History of CKD stage IV #Non anion gap metabolic acidosis #Hypernatremia, asymptomatic Patient presents scented with elevated creatinine of 4.0 from a baseline of 2.5 and a BUN of 72. Patient has been noncompliant with her medications She has not been taking her Lasix and her BNP is 3280. However clinically patient is dehydrated with dry mucous membranes, decreased capillary refill. Patient received 1 dose of Lasix in the ER. Patient's lactic acid was normal at 1.3. Chloride was 117 and bicarb was 16.4 with a VBG showing a pH of 7.17 She has a history of HFrEF with previous echo showing 45 to 50% EF. Likely underlying cardiorenal syndrome Acidosis likely from persistent GI loses Patient kidney function is improving, however bicarb levels decreased. Patient received IV fluids yesterday, appears volume overloaded today. Crackles, edema improved notably. However kidney function has worsened, patient now hypernatremic. Suspect overdiuresis, patient receiving 2 mg Bumex IV twice daily. Held morning dose of Bumex, recommend pausing diuresis and fluid restriction. Patient drinks 5 L of fluid over 24-hour period, with 1.5 L urinary output. No short of breath the following morning with little change in kidney function. Tunneled dialysis catheter in place, patient received hemodialysis today, had about 1 L removed total dialysis hours 2 hours 30 minutes postdialysis weight 61.5 kg.. Hepatitis panel negative. ? Fluid restriction 1.8 L daily ? Trend renal function ? Avoid nephrotoxic medications ? Control hypertension ? Strict ZAKI's - Agree with Bicitra 30 mL p.o. twice daily - TB test pending - Hemodialysis today, 1 L fluid removed - Plan for patient to continue hemodialysis outpatient after discharge, twice weekly at [facility] #Hypertensive emergency #Troponinemia #HFrEF exacerbation #Meth abuse #COPD #Diarrhea ? Managed as per primary team Thank you for allowing us to be part of patient care during her time at [facility] Plan of care discussed with attending Dr. Suh. Laure Daley MD PGY?1 Attending Provider Attestation/Addendum Pt is seen and examined. Labs and investigations are reviewed. Agree witth assessment and plan by resident. agree with findings. Pawan Suh MD
[2025-01-25] MEDS: carVEDILOL 12.5 MG TABLET PO (16:57)
--- NOTE | 2025-01-25 20:21 | PC.NURSE ---
Pt requests 2100/2200 meds be given now and not to bother her for the night. Md espinoza'd
--- NOTE | 2025-01-25 21:21 | PD.RESPRO ---
Documentation for date of: 01/25/25 Subjective Subjective Interval history: No acute overnight events. Continues to be hemodynamically stable. Scheduled for hemodialysis today. BP 159/86, HR 86, satting well on room air. BUN 64, CR 3.3, EGFR 14. GLUCOSE 161, corrected calcium 8.2. CBC stable with hemoglobin 11.5 at baseline, no leukocytosis. Continued on BUMEX 1 mg daily. Had 450 cc urine output overnight. Currently pending HD chair placement. Will continue with diuresis and HD as needed. Exam Vital Signs Temp Pulse Resp BP Pulse Ox O2 Del Method O2 Flow Rate 98.8 F 86 18 159/86 H 96 Room Air 3 01/25/25 20:00 01/25/25 20:20 01/25/25 20:00 01/25/25 20:20 01/25/25 20:00 01/25/25 20:00 01/23/25 10:50 Narrative Exam General: AOx3, no acute distress, NAD, on room air. Right HD cath noted. HEENT: dry mucous membranes, NC/AT, bilateral sclera anicteric Cardiovascular: regular rate and rhythm, S1/S2 present, no murmurs appreciated Pulmonary: mild bibasilar crackle, no wheezing. Abdominal: soft, non-tender, non-distended, no rebound/guarding, normal bowel sounds present Musculoskeletal: No BLE pitting edema, large right-sided breast implant, normal ROM Skin: warm and dry, intact, no rashes Neuro: CN II-XII intact, no focal deficits Objective Labs 01/26/25 05:57 01/26/25 05:57 Labs: Laboratory Results - last 24 hr 01/25/25 05:45 WBC 7.1 RBC 3.62 L Hgb 11.5 L Hct 34.5 L MCV 95 MCH 31.8 MCHC 33.3 RDW Std Deviation 55.9 H Plt Count 208 Neut % (Auto) 69 Lymph % (Auto) 16 [place] % (Auto) 13 H Eos % (Auto) 2 Baso % (Auto) 1 Neut # (Auto) 4.9 Lymph # (Auto) 1.1 [place] # (Auto) 0.9 H Eos # (Auto) 0.1 Baso # (Auto) 0.0 Immature Gran # (Auto) 0.03 H Absolute Nucleated RBC 0.00 Immature Gran % 0 Nucleated RBC % 0 Sodium 142 Potassium 4.4 Chloride 106 Carbon Dioxide 25.2 Anion Gap 11 BUN 64 H Creatinine 3.3 H D Estim Creat Clear Calc 13.5 L eGFR 14 L* BUN/Creatinine Ratio 19 Glucose 161 H D Calculated Osmolality 304 H Calcium 8.0 L Corrected Calcium 8.2 L Phosphorus 4.0 Magnesium 1.6 Total Bilirubin 0.2 L AST 26 ALT 22 Alkaline Phosphatase 106 D Total Protein 6.1 Albumin 3.8 Globulin 2.3 Albumin/Globulin Ratio 1.7 HIV 1&2 Antibody Rapid Non-Reactive ABG Interpretation ABG results: 01/18/25 01/18/25 09:50 13:43 VBG pH 7.11 L 7.17 L VBG pCO2 50 39 D VBG pO2 38 57 VBG Base Excess -14 L -14 L Quality Measures Quality Measures VTE prophylaxis Advance care planning discussed with:: patient Assessment & Plan Assessment Current Active Medications: Generic Name Dose Route Start Last Admin Trade Name Freq PRN Reason Stop Dose Admin Acetaminophen 650 mg 01/18/25 14:24 01/23/25 23:57 Acetaminophen 325 Mg Tablet PO 02/17/25 14:23 650 mg Q6H PRN Administration Fever >100.4 or pain 1-3 Albuterol/Ipratropium 3 ml 01/18/25 14:28 Albuterol/Ipratropium (Duoneb) Rt Dee 3 Ml Nebu INH 02/17/25 14:27 Q2HR PRN SHORTNESS OF BREATH OR WHEEZE Bumetanide 1 mg 01/25/25 09:00 01/25/25 11:57 Bumetanide 0.5 Mg Tablet PO 02/24/25 08:59 1 mg QDAY KENNEDY Administration Carvedilol 12.5 mg 01/25/25 17:30 01/25/25 16:57 Carvedilol 12.5 Mg Tablet PO 02/24/25 17:29 12.5 mg BIDWM KENNEDY Administration Clonidine 0.1 mg 01/25/25 21:00 01/25/25 20:20 Clonidine Hcl 0.1 Mg Tablet PO 02/24/25 20:59 0.1 mg BID KENNEDY Administration Docusate Sodium 100 mg 01/18/25 14:24 Docusate Sod 100 Mg Capsule PO 02/17/25 14:23 QDAY PRN CONSTIPATION Protocol Famotidine 20 mg 01/26/25 09:00 Famotidine Inj 10 Mg/Ml Vial 2 Ml IVP 02/20/25 08:59 DAILY KENNEDY Heparin Sodium (Porcine) 5,000 unit 01/18/25 21:00 01/22/25 21:22 Heparin Sod Inj 5000 Unit/Ml Vial SC 02/01/25 20:59 5,000 unit Q12HR KENNEDY Administration Heparin Sodium (Porcine) 3,800 unit 01/24/25 09:52 01/25/25 11:17 Heparin Sod Inj 1000 Unit/Ml Vial 10 Ml INDWELLCAT 02/07/25 09:51 3,800 unit PRN PRN Administration DIALYSIS Hydralazine HCl 100 mg 01/24/25 14:00 01/25/25 20:19 Hydralazine Hcl 25 Mg Tablet PO 02/23/25 13:59 100 mg TID KENNEDY Administration Hydralazine HCl 10 mg 01/24/25 17:04 Hydralazine Inj 20 Mg/Ml Vial IV 02/23/25 16:03 Q6H PRN SBP>160, hold if HR<60 Albumin Human 25 gm in 100 mls @ 100 mls/min 01/24/25 08:25 Albuminar-25 Ivpb IV PRN PRN DIALYSIS Metoclopramide HCl 5 mg 01/21/25 08:14 Metoclopramide Inj 5 Mg/Ml Vial 2 Ml IVP 02/20/25 08:14 Q6HR PRN nausea or vomiting Protocol Nifedipine 30 mg 01/24/25 22:00 01/25/25 20:20 Nifedipine Xl 30 Mg Tabcr PO 02/23/25 21:59 30 mg TID KENNEDY Administration Plan 68-year-old female with a past medical history of Mild CAD by cath in June 2024, nonischemic cardiomyopathy with severe systolic congestive heart failure with an EF of 30 to 35% 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 Patient known to me from previous admission in June 2024 when she was diagnosed with severe systolic congestive heart failure. Patient was adequately diuresed and had a left and right heart cardiac catheterization performed at that time which showed mild CAD of 30% stenosis in the LAD. Nonischemic cardiomyopathy was diagnosed mostly secondary to methamphetamine abuse and history of drug abuse. Patient was started on some goal-directed medical therapy but did not follow-up regularly in the office. Patient apparently was admitted again in October 2024 when an echo was repeated and showed EF improved to 40 to 45%. Now she presents again with shortness of breath orthopnea as well as bilateral lower extremity edema. Patient continues to use methamphetamine and says that she has decreased the amount that she is using. Patient social situation is also not good as she was homeless previously a and was living in a trailer but at the present point of time does not have a home. Does not have anyone to take care of her closely or bring her to the appointments. Upon arrival to the ED, BP 206/135, saturating 97% on 6 L nasal cannula but upon evaluation saturating 94% on room air, HR 85, RR 20, afebrile. CBC unremarkable. VBG showed pH 7.17, PCO2 39, PO2 57. CHEM panel showed K 5.1, chloride 117, HCO3 16, BUN 72, creatinine 4, GFR 11, Mg 1.3, AST/ALT 50/51, alk phos 139, BNP > 3000, troponin 0.084 -> 0.077. UA showed 2+ protein, 1+ blood, 6 RBC. U tox positive for amphetamine. CXR showed mild vascular congestion, mildly enlarged cardiac contour, but no pneumonia or pulmonary edema. EKG showed HR 85, NSR, no ST or T wave abnormalities. On examination patient has significant bilateral crackles and has at least 1-2+ edema, puffy face as well as 2 or 6 systolic murmur heard at the apex. Difficult to assess the JVD. Assessment and plan: 1. Acute on chronic systolic CHF exacerbation 2. Chronic kidney disease stage IV, possible HD dependent now 3. Cardiorenal syndrome with hepatic congestion from the CHF exacerbation 4. Nonischemic cardiomyopathy mostly secondary to drug abuse 5. Mild CAD by cardiac cath in June 2024 6. Elevated LFTs mostly secondary to hepatic congestion (imporving) 7. Mildly elevated troponins mostly secondary to NSTEMI type II (resolved) 8. Hypertensive urgency (resolved) 9. History of COPD not on home oxygen 10. Polysubstance abuse with meth abuse as well as history of smoking and continues to smoke currently 11. Breast cancer s/p bilateral mastectomy 1995 and history of breast implants 12. Homeless Patient presented with shortness of breath, leg swelling as well as orthopnea for the past few weeks. Patient on examination has bilateral crackles and has 1 to + leg edema along with puffy face. Patient is hypoxic requiring 4 to 6 L via nasal cannula on arrival which improved after diuresis. Chest x-ray does show mild vascular congestion and BNP was greater than 3280. Also patient presented with hypertensive urgency with a blood pressure of 206/135. BUN and creatinine were at 72 and 4.1. Patient baseline creatinine around 2.5-2.7 during the last admission even in November 2024 Patient has elevated LFTs also indicating hepatic congestion. Overall clinical picture suggest acute on chronic systolic congestive heart failure with cardiorenal syndrome presentation. Recommend aggressive diuresis with the Lasix 40 mg IV twice daily and can change to Bumex if there is no signs of urine output. Discontinued IV fluids for now. Strict input output, daily weights and 2 g sodium diet. Recent echo reviewed and showed an EF of 40 to 45% with mild systolic dysfunction and previous echo was severe systolic dysfunction with an EF of 30 to 35%. Patient appears to have not been taking her medications including any medications for the heart failure or for her blood pressure and presented with high blood pressure 206/135 mmHg. Recommend to aggressively diurese the patient and start the patient on amlodipine 10 mg once daily for now and will start beta-nidhi later once the patient is adequately diuresed. No BETTY inhibitor's or ARB's in view of the SREE on CKD Patient with acute kidney injury on CKD stage IV. Nephrology was also consulted by the primary team and patient might eventually need dialysis if kidney function does not improve with diuresis. Patient has mildly elevated troponins of 0.07 and 0.08 admitted mostly secondary to acute CHF exacerbation and patient already had echocardiogram which showed mild CAD in June 2024. Patient counseled regarding quitting smoking completely as well as drug abuse Patient counseled and recommended to make sure to show for follow-up appointments with PCP, nephrology as well as cardiology. Recommended clinical social work aide as well as case management consult for placement for this patient and also will need possible rehab at the time of discharge including drug rehab. 01/19/2025-patient did not diurese much last night and will change the patient from Lasix to Bumex 2 mg IV twice a day for now. Continue strict input output, daily weights and 2 g sodium diet. Patient overall appears to be better in the evening around send output was greater than 1 L. Kidney function today showed creatinine of 3.8 and was 4.1 yesterday. Blood pressure is in the range of 160 to 180 mmHg. Continue amlodipine for now and will restart Coreg once patient is diuresed well.Rest of the vitals stable 01/20/2025 - Patient diuresed well with Bumex yesterday and was net negative around 1 to 2 L. BUN is 83 today and creatinine of 4.0 but sodium increased to 146 and chloride is also 112. Leg edema and facial edema has improved considerably but patient appears to be intravascularly depleted but still has some extravascular fluid with 1+ leg edema. Nephrology recommended to hold the Bumex for today and also to hold the fluid restriction and will reevaluate tomorrow morning for further diuresis based on the labs. 01/21/25 - Yesterday patient did drink up to 5 L of fluid after removing the fluid restriction. She is net +4 L from yesterday and appears to be fluid overloaded Discussed with nephrology team again and patient has cardiorenal syndrome and recommended to restart IV diuresis along with fluid restriction. As patient is hyponatremic causing intravascular depletion due to aggressive diuresis will decrease the Bumex dose to 1 mg IV once daily and for now Strict input output, daily weights and 2 g sodium diet. Patient again recommended to restrict her fluid intake. Patient blood pressure continues to be elevated for now continue with amlodipine 10 mg once daily and will restart the patient Coreg which is her home medication and add hydralazine if needed no BETTY or ARB given the CKD stage IV. 01/23/2025 Currently NPO for HD cath. Continued on BUMEX 1 mg daily and fluid restriction, had 2.2L urine output, overall 4.8L positive. Weight today 63.5, same as presentation. Has bibasilar crackles on exam, but no LE edema. Satting well on room air. Renal function remains poor, CR 3.3 > 3.6, GFR 14 > 13, BUN 77. CBC reviewed and appears at baseline. LFTs wnl, glucose 206. Corrected calcium 7.5, remainder elytes normal. At this point, cardiorenal type 2 still most likely dx, as she is very dependent on diuresis, goes into fluid overload whenever diuresis discontinued. However, she has poor tolerance for diuresis with worsening renal function. Nephrology recommended ultrafiltration twice a week, agree with plan. continue diuresis as pt with good urine output, fluid restriction and daily weights. BP not well controlled, SBP 150-160s despite multiple meds, including NIFEDIPINE, CARVEDILOL and HYDRALAZINE. However, BP, will likely improve with hemodialysis. Continue avoiding BETTY and ARB's in settings of CKD stage IV. Overall, high concern for HD and medication non-compliance given her living situation. Appears primary team working on stable housing, which she will need. 01/24/2025 HD cath placed, scheduled for HD session today. had 580 cc urine output with BUMEX 1 mg. Overall 4.2 L net positive. No improvement in renal function, CR 3.8, BUN 74, EGFR 12. Magnesium 1.4, corrected calcium 8.1, remainder electrolyte WNL. CBC stable. Will continue BUMEX 1 mg daily, and HD twice a week. BP 151/92 and will likely improve with ultrafiltration. Continue with current blood pressure meds. 01/25/2025 HD session scheduled for today. BUMEX was held overnight, urine output roguhly 500 cc. Renal function showing slight improvement: BUN 64, CR 3.3, EGFR 14. Stable BP 150/86, HR 86. Currently pending outpatient HD chair placement. Will continue with BUMEX, blood pressure control and hemodialysis as needed. Management of rest of the medical conditions as per primary team and other consultants. Thank you for the consult and allowing me to participate in the care of the patient. Cardiology will continue to follow. Thank you for the opportunity to participate in the patient's care. Case was discussed with attending, Dr. Mauricio. Jacquie Eduardo DO PGYI Attending Provider Attestation/Addendum I have personally seen and examined the patient separately on the above date of service and discussed the plan of care with the resident. I reviewed the resident Dr. Jacquie Eduardo consultation progress note and agree with the resident findings and plan in the note above and have also edited the documentation to reflect my findings and plan. Pillo Mauricio M.D. Interventional Cardiology
[2025-01-26] VITALS (15 sets, daily range): BP systolic 136–168; BP diastolic 64–100; PULSE 70–82; RESP 15–23; TEMP 36.3–36.9; O2SAT 92–98
[2025-01-26] MEDS: hydrALAZINE HCL 25 MG TABLET 100 MG PO ×2 (05:22→21:02)
[2025-01-26] MEDS: NIFEdipine XL 30 MG TABCR PO ×2 (05:22→21:01)
[2025-01-26 06:22] LABS: Basophils % (Auto) 0 % (0-2.5); Eosinophils # (Auto) 0.2 Thou/mm3 (0.0-0.5); Eosinophils % (Auto) 2 % (0-10); Hematocrit 34.3 % (36.0-46.0); Immature Granulocytes % (Auto) 0 % (0-0); Immature Granulocytes Auto 0.02 Thou/mm3 (0.00-0.00); Lymphocytes # (Auto) 0.8 Thou/mm3 (1.0-4.8); Lymphocytes % (Auto) 11 % (10-50); Mean Corpuscular HGB Conc 32.1 g/dl (31.0-37.0); Mean Corpuscular Hemoglobin 31.7 pg (25.0-35.0); Mean Corpuscular Volume 99 fL (80-100); Monocytes # (Auto) 0.9 Thou/mm3 (0.0-0.8); Monocytes % (Auto) 13 % (0-12); Neutrophils # (Auto) 5.2 Thou/mm3 (1.8-7.7); Neutrophils % (Auto) 73 % (37-80); Nucleated Red Blood Cell % 0 /100 WBC (0); Platelet Count 165 Thou/mm3 (140-440); Red Blood Count 3.47 Miln/mm3 (4.00-5.20); White Blood Count 7.1 Thou/mm3 (3.6-11.0)
[2025-01-26 06:43] LABS: Alanine Aminotransferase 20 U/L (10-49); Albumin, Serum 3.7 gm/dL (3.4-4.8); Albumin/Globulin Ratio 1.7 (1.2-2.2); Alkaline Phosphatase 92 U/L (46-116); Anion Gap 9 (7-16); Aspartate Amino Transferase 19 U/L (0-34); BUN/Creatinine Ratio 18 Ratio (12-20); Bilirubin,Total 0.2 mg/dL (0.3-1.2); Blood Urea Nitrogen 55 mg/dL (9-23); Calcium 8.3 mg/dL (8.3-10.6); Calcium (Corrected) 8.5 mg/dL (8.5-10.1); Chloride 105 mMol/L (98-107); Creatinine (Component) 3.1 mg/dL (0.6-1.3); Estimated Creatinine Clearance 14.4 mL/min (>60); Globulin 2.2 gm/dL (2.3-3.5); Glucose 203 mg/dL (74-106); Magnesium 1.5 mg/dL (1.6-2.6); Osmolality,Calculated 302 (275-295); Phosphorous 3.7 mg/dL (2.4-5.1); Potassium 4.3 mMol/L (3.4-5.1); Sodium 141 mMol/L (136-145); Total Protein 5.9 gm/dL (5.7-8.2); eGFR 15 See Note
[2025-01-26 06:57] LABS: Giardia Result NOT DETECTED; Norovirus, EIA (Stool)* NOT DETECTED
[2025-01-26] MEDS: carVEDILOL 12.5 MG TABLET PO ×2 (08:16→11:59)
[2025-01-26] MEDS: BUMETANIDE 0.5 MG TABLET 1 MG PO (08:17)
[2025-01-26] MEDS: cloNIDine HCL 0.1 MG TABLET PO ×2 (08:17→20:15)
[2025-01-26] MEDS: FAMOTIDINE INJ 10 MG/ML VIAL 2 ML 20 MG IVP (08:18)
--- NOTE | 2025-01-26 09:23 | ESPR_ITS ---
Documentation for date of: 01/26/25 Subjective Subjective Interval history: No acute overnight events. Seen and examined at bedside. Feels well today. Denies fever, chills, headaches, chest pain, sob, cough, GI or urinary symptoms. 1.4 L fluid was removed during HD yesterday, she had roughly 500 cc of urine output this morning. Labs showed BUN 85, CR 3.1, magnesium 1.5, potassium 4.3, CBC at baseline. Primary team repleted magnesium. Will continue with hemodialysis per nephrology. BP 159/74, still elevated, increased COREG to 25 mg BID. Continue all other medications as previously. Exam Vital Signs Temp Pulse Resp BP Pulse Ox O2 Del Method O2 Flow Rate 97.5 F 74 16 159/74 H 94 L Room Air 1 01/26/25 08:00 01/26/25 08:17 01/26/25 08:00 01/26/25 08:17 01/26/25 08:00 01/26/25 08:00 01/26/25 04:00 Objective Labs 01/26/25 05:57 01/26/25 05:57 Labs: Laboratory Results - last 24 hr 01/20/25 01/26/25 15:45 05:57 WBC 7.1 RBC 3.47 L Hgb 11.0 L Hct 34.3 L MCV 99 MCH 31.7 MCHC 32.1 RDW Std Deviation 57.0 H Plt Count 165 D Neut % (Auto) 73 Lymph % (Auto) 11 [place] % (Auto) 13 H Eos % (Auto) 2 Baso % (Auto) 0 Neut # (Auto) 5.2 Lymph # (Auto) 0.[address] [place] # (Auto) 0.9 H Eos # (Auto) 0.2 Baso # (Auto) 0.0 Immature Gran # (Auto) 0.02 H Absolute Nucleated RBC 0.00 Immature Gran % 0 Nucleated RBC % 0 Sodium 141 Potassium 4.3 Chloride 105 Carbon Dioxide 27.0 Anion Gap 9 BUN 55 H Creatinine 3.1 H Estim Creat Clear Calc 14.4 L eGFR 15 L BUN/Creatinine Ratio 18 Glucose 203 H Calculated Osmolality 302 H Calcium 8.3 Corrected Calcium 8.5 Phosphorus 3.7 Magnesium 1.5 L Total Bilirubin 0.2 L AST 19 ALT 20 Alkaline Phosphatase 92 Total Protein 5.9 Albumin 3.7 Globulin 2.2 L Albumin/Globulin Ratio 1.7 Stl Giardia Antigen NOT DETECTED Stool Norovirus Ag NOT DETECTED ABG Interpretation ABG results: 01/18/25 01/18/25 09:50 13:43 VBG pH 7.11 L 7.17 L VBG pCO2 50 39 D VBG pO2 38 57 VBG Base Excess -14 L -14 L Quality Measures Quality Measures VTE prophylaxis Advance care planning discussed with:: patient Assessment & Plan Assessment Current Active Medications: Generic Name Dose Route Start Last Admin Trade Name Freq PRN Reason Stop Dose Admin Acetaminophen 650 mg 01/18/25 14:24 01/23/25 23:57 Acetaminophen 325 Mg Tablet PO 02/17/25 14:23 650 mg Q6H PRN Administration Fever >100.4 or pain 1-3 Albuterol/Ipratropium 3 ml 01/18/25 14:28 Albuterol/Ipratropium (Duoneb) Rt Dee 3 Ml Nebu INH 02/17/25 14:27 Q2HR PRN SHORTNESS OF BREATH OR WHEEZE Bumetanide 1 mg 01/25/25 09:00 01/26/25 08:17 Bumetanide 0.5 Mg Tablet PO 02/24/25 08:59 1 mg QDAY KENNEDY Administration Carvedilol 25 mg 01/26/25 17:30 Carvedilol 12.5 Mg Tablet PO 02/25/25 17:29 BIDWM KENNEDY Clonidine 0.1 mg 01/25/25 21:00 01/26/25 08:17 Clonidine Hcl 0.1 Mg Tablet PO 02/24/25 20:59 0.1 mg BID KENNEDY Administration Docusate Sodium 100 mg 01/18/25 14:24 Docusate Sod 100 Mg Capsule PO 02/17/25 14:23 QDAY PRN CONSTIPATION Protocol Famotidine 20 mg 01/26/25 09:00 01/26/25 08:18 Famotidine Inj 10 Mg/Ml Vial 2 Ml IVP 02/20/25 08:59 20 mg DAILY KENNEDY Administration Heparin Sodium (Porcine) 5,000 unit 01/18/25 21:00 01/26/25 08:19 Heparin Sod Inj 5000 Unit/Ml Vial SC 02/01/25 20:59 Not Given Q12HR KENNEDY Heparin Sodium (Porcine) 3,800 unit 01/24/25 09:52 01/25/25 11:17 Heparin Sod Inj 1000 Unit/Ml Vial 10 Ml INDWELLCAT 02/07/25 09:51 3,800 unit PRN PRN Administration DIALYSIS Hydralazine HCl 100 mg 01/24/25 14:00 01/26/25 05:22 Hydralazine Hcl 25 Mg Tablet PO 02/23/25 13:59 100 mg TID KENNEDY Administration Hydralazine HCl 10 mg 01/24/25 17:04 Hydralazine Inj 20 Mg/Ml Vial IV 02/23/25 16:03 Q6H PRN SBP>160, hold if HR<60 Albumin Human 25 gm in 100 mls @ 100 mls/min 01/24/25 08:25 Albuminar-25 Ivpb IV PRN PRN DIALYSIS Magnesium Sulfate 4 gm in 50 mls @ 12.5 mls/hr 01/26/25 08:55 Magnesium Sulfate Ivpb IV 01/26/25 12:54 X1 ONE Metoclopramide HCl 5 mg 01/21/25 08:14 Metoclopramide Inj 5 Mg/Ml Vial 2 Ml IVP 02/20/25 08:14 Q6HR PRN nausea or vomiting Protocol Nifedipine 30 mg 01/24/25 22:00 01/26/25 05:22 Nifedipine Xl 30 Mg Tabcr PO 02/23/25 21:59 30 mg TID KENNEDY Administration Plan 68-year-old female with a past medical history of Mild CAD by cath in June 2024, nonischemic cardiomyopathy with severe systolic congestive heart failure with an EF of 30 to 35% 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 Patient known to me from previous admission in June 2024 when she was diagnosed with severe systolic congestive heart failure. Patient was adequately diuresed and had a left and right heart cardiac catheterization performed at that time which showed mild CAD of 30% stenosis in the LAD. Nonischemic cardiomyopathy was diagnosed mostly secondary to methamphetamine abuse and history of drug abuse. Patient was started on some goal-directed medical therapy but did not follow-up regularly in the office. Patient apparently was admitted again in October 2024 when an echo was repeated and showed EF improved to 40 to 45%. Now she presents again with shortness of breath orthopnea as well as bilateral lower extremity edema. Patient continues to use methamphetamine and says that she has decreased the amount that she is using. Patient social situation is also not good as she was homeless previously a and was living in a trailer but at the present point of time does not have a home. Does not have anyone to take care of her closely or bring her to the appointments. Upon arrival to the ED, BP 206/135, saturating 97% on 6 L nasal cannula but upon evaluation saturating 94% on room air, HR 85, RR 20, afebrile. CBC unremarkable. VBG showed pH 7.17, PCO2 39, PO2 57. CHEM panel showed K 5.1, chloride 117, HCO3 16, BUN 72, creatinine 4, GFR 11, Mg 1.3, AST/ALT 50/51, alk phos 139, BNP > 3000, troponin 0.084 -> 0.077. UA showed 2+ protein, 1+ blood, 6 RBC. U tox positive for amphetamine. CXR showed mild vascular congestion, mildly enlarged cardiac contour, but no pneumonia or pulmonary edema. EKG showed HR 85, NSR, no ST or T wave abnormalities. On examination patient has significant bilateral crackles and has at least 1-2+ edema, puffy face as well as 2 or 6 systolic murmur heard at the apex. Difficult to assess the JVD. Assessment and plan: 1. Acute on chronic systolic CHF exacerbation 2. Chronic kidney disease stage IV, possible HD dependent now 3. Cardiorenal syndrome with hepatic congestion from the CHF exacerbation 4. Nonischemic cardiomyopathy mostly secondary to drug abuse 5. Mild CAD by cardiac cath in June 2024 6. Elevated LFTs mostly secondary to hepatic congestion (imporving) 7. Mildly elevated troponins mostly secondary to NSTEMI type II (resolved) 8. Hypertensive urgency (resolved) 9. History of COPD not on home oxygen 10. Polysubstance abuse with meth abuse as well as history of smoking and continues to smoke currently 11. Breast cancer s/p bilateral mastectomy 1995 and history of breast implants 12. Homeless Patient presented with shortness of breath, leg swelling as well as orthopnea for the past few weeks. Patient on examination has bilateral crackles and has 1 to + leg edema along with puffy face. Patient is hypoxic requiring 4 to 6 L via nasal cannula on arrival which improved after diuresis. Chest x-ray does show mild vascular congestion and BNP was greater than 3280. Also patient presented with hypertensive urgency with a blood pressure of 206/135. BUN and creatinine were at 72 and 4.1. Patient baseline creatinine around 2.5-2.7 during the last admission even in November 2024 Patient has elevated LFTs also indicating hepatic congestion. Overall clinical picture suggest acute on chronic systolic congestive heart failure with cardiorenal syndrome presentation. Recommend aggressive diuresis with the Lasix 40 mg IV twice daily and can change to Bumex if there is no signs of urine output. Discontinued IV fluids for now. Strict input output, daily weights and 2 g sodium diet. Recent echo reviewed and showed an EF of 40 to 45% with mild systolic dysfunction and previous echo was severe systolic dysfunction with an EF of 30 to 35%. Patient appears to have not been taking her medications including any medications for the heart failure or for her blood pressure and presented with high blood pressure 206/135 mmHg. Recommend to aggressively diurese the patient and start the patient on amlodipine 10 mg once daily for now and will start beta-nidhi later once the patient is adequately diuresed. No BETTY inhibitor's or ARB's in view of the RSEE on CKD Patient with acute kidney injury on CKD stage IV. Nephrology was also consulted by the primary team and patient might eventually need dialysis if kidney function does not improve with diuresis. Patient has mildly elevated troponins of 0.07 and 0.08 admitted mostly secondary to acute CHF exacerbation and patient already had echocardiogram which showed mild CAD in June 2024. Patient counseled regarding quitting smoking completely as well as drug abuse Patient counseled and recommended to make sure to show for follow-up appointments with PCP, nephrology as well as cardiology. Recommended social work associate as well as case management consult for placement for this patient and also will need possible rehab at the time of discharge including drug rehab. 01/19/2025-patient did not diurese much last night and will change the patient from Lasix to Bumex 2 mg IV twice a day for now. Continue strict input output, daily weights and 2 g sodium diet. Patient overall appears to be better in the evening around send output was greater than 1 L. Kidney function today showed creatinine of 3.8 and was 4.1 yesterday. Blood pressure is in the range of 160 to 180 mmHg. Continue amlodipine for now and will restart Coreg once patient is diuresed well.Rest of the vitals stable 01/20/2025 - Patient diuresed well with Bumex yesterday and was net negative around 1 to 2 L. BUN is 83 today and creatinine of 4.0 but sodium increased to 146 and chloride is also 112. Leg edema and facial edema has improved considerably but patient appears to be intravascularly depleted but still has some extravascular fluid with 1+ leg edema. Nephrology recommended to hold the Bumex for today and also to hold the fluid restriction and will reevaluate tomorrow morning for further diuresis based on the labs. 01/21/25 - Yesterday patient did drink up to 5 L of fluid after removing the fluid restriction. She is net +4 L from yesterday and appears to be fluid overloaded Discussed with nephrology team again and patient has cardiorenal syndrome and recommended to restart IV diuresis along with fluid restriction. As patient is hyponatremic causing intravascular depletion due to aggressive diuresis will decrease the Bumex dose to 1 mg IV once daily and for now Strict input output, daily weights and 2 g sodium diet. Patient again recommended to restrict her fluid intake. Patient blood pressure continues to be elevated for now continue with amlodipine 10 mg once daily and will restart the patient Coreg which is her home medication and add hydralazine if needed no BETTY or ARB given the CKD stage IV. 01/23/2025 Currently NPO for HD cath. Continued on BUMEX 1 mg daily and fluid restriction, had 2.2L urine output, overall 4.8L positive. Weight today 63.5, same as presentation. Has bibasilar crackles on exam, but no LE edema. Satting well on room air. Renal function remains poor, CR 3.3 > 3.6, GFR 14 > 13, BUN 77. CBC reviewed and appears at baseline. LFTs wnl, glucose 206. Corrected calcium 7.5, remainder elytes normal. At this point, cardiorenal type 2 still most likely dx, as she is very dependent on diuresis, goes into fluid overload whenever diuresis discontinued. However, she has poor tolerance for diuresis with worsening renal function. Nephrology recommended ultrafiltration twice a week, agree with plan. continue diuresis as pt with good urine output, fluid restriction and daily weights. BP not well controlled, SBP 150-160s despite multiple meds, including NIFEDIPINE, CARVEDILOL and HYDRALAZINE. However, BP, will likely improve with hemodialysis. Continue avoiding BETTY and ARB's in settings of CKD stage IV. Overall, high concern for HD and medication non-compliance given her living situation. Appears primary team working on stable housing, which she will need. 01/24/2025 HD cath placed, scheduled for HD session today. had 580 cc urine output with BUMEX 1 mg. Overall 4.2 L net positive. No improvement in renal function, CR 3.8, BUN 74, EGFR 12. Magnesium 1.4, corrected calcium 8.1, remainder electrolyte WNL. CBC stable. Will continue BUMEX 1 mg daily, and HD twice a week. BP 151/92 and will likely improve with ultrafiltration. Continue with current blood pressure meds. 01/25/2025 HD session scheduled for today. BUMEX was held overnight, urine output roguhly 500 cc. Renal function showing slight improvement: BUN 64, CR 3.3, EGFR 14. Stable BP 150/86, HR 86. Currently pending outpatient HD chair placement. Will continue with BUMEX, blood pressure control and hemodialysis as needed. 01/26/2025 Doing well overall. 1.4 L fluid was removed during HD yesterday, she had roughly 500 cc of urine output this morning. Labs showed BUN 85, CR 3.1, magnesium 1.5, potassium 4.3, CBC at baseline. Primary team repleted magnesium. Will continue with hemodialysis per nephrology. BP 159/74, still elevated, increased COREG to 25 mg BID. Continue all other medications as listed. Maintain magnesium greater than 2, potassium greater than 4. Management of rest of the medical conditions as per primary team and other consultants. Thank you for the consult and allowing me to participate in the care of the patient. Cardiology will continue to follow. Thank you for the opportunity to participate in the patient's care. Case was discussed with attending, Dr. Mauricio. Jacquie Eduardo DO PGYI Attending Provider Attestation/Addendum I have personally seen and examined the patient separately on the above date of service and discussed the plan of care with the resident. I reviewed the resident Dr. Jacquie Eduardo consultation progress note and agree with the resident findings and plan in the note above and have also edited the documentation to reflect my findings and plan. Pillo Mauricio M.D. Interventional Cardiology
--- NOTE | 2025-01-26 09:30 | PC.SS ---
Addendum entered by Nat Benedict 01/26/25 15:53: SS followed up with patient to update that insurance denied request for SNF due to PT eval. SS inquired about temporarily staying with patient's friend, Jonh. She states she will be talking to him and seeing if she could temporarily stay with him. Patient does receive Social Security income and additional funds. SS provided resource community listing of low income apartments to contact for future. SS will follow up with patient again tomorrow on final plans and o/p dialysis schedule. Original Note: Follow up note: SS followed up wtih [employer] -[facility] and they state they denied request for SNF placement. Patient was CGA on PT eval notes. They are aware patient is new hemodialysis. SS contacted [facility] and spoke to Dary regarding o/p chair time. She states we just gave the TB test yesterday, therefore, it cannot be read until tomorrow. Tomorrow they will have o/p chair time. Updated physician team. Patient will need to d/c to halfway or with friend, Jonh. SS will verify final d/c plans.
--- NOTE | 2025-01-26 10:50 | ESPR_ITS ---
Documentation for date of: 01/26/25 Subjective Subjective Interval history: Ms. Freed is a 69-year-old female past medical history of HFrEF with a EF of 45 to 50%, CKD stage IV, hypertension, COPD, breast cancer status post unilateral mastectomy, meth abuse who came in because of shortness of breath. Patient was seen at bedside in the ED and was shivering because she was feeling cold. She is a poor historian and has been noncompliant with his medications as she states that she only takes her meds on and off. She does reveal that she has been using meth for about a week and the last time was this morning prior to admission. She has also been having episodes of diarrhea that were brown and nonbloody for about a week. She states that she has been eating well however that is questionable as she says her last meal was sometime yesterday in the afternoon and the only thing she had today was a sandwich given to her by the ED. In terms of her symptoms patient's main complaint was a shortness of breath with mild chest pressure and a mild abdominal tenderness however she denies any fevers, chills, flulike symptoms, nausea, vomiting or rashes. Patient does state that she has been having headaches which goes along with her uncontrolled blood pressure. The neurology team was consulted as patient's renal function is worse than usual.Renal ultrasound obtained on September this year showed bilateral renal parenchymal scar formation with right renal cortical thinning. Chloride was elevated at 117 without a bicarb of 16.4. BUN was 72 and creatinine was 4.4 from a baseline of 2.5. Lactic acid was normal at 1.3 however troponins were mildly elevated at 0.077 and BUN was greater than 30-80. UA had 2+ protein without leukocyte esterase and only rare bacteria. U-Tox was positive for meth 01/19/2025: Patient seen examined at bedside, resting comfortably. Patient endorses shortness of breath with mild distress, however saturating well on room air. Otherwise denies fever, chills, chest pain. Hemoglobin 11.4, chloride 115, bicarb 15 (decreased from yesterday). BUN 61, creatinine 3.8, eGFR 12, kidney function improving. Phosphorus 5.7, magnesium 1.8. On exam patient had bilateral edema and crackles in lungs. Suspect fluid overload, recommend diuretics. 01/20/2025: Patient seen and examined at bedside, resting comfortably. Patient continues to endorse shortness of breath, however improved from yesterday subjectively. Patient denies fever, chills, chest pain, nausea, vomiting. WBC 8.8, hemoglobin 11.4. Patient hypernatremic 146, asymptomatic. BUN 23, creatinine 4.0, EGFR 19. Kidney function worsening, patient has improved crackles and decreased edema, suspect overdiuresis. Recommend holding diuretics and pausing fluid restriction. 01/21/2025: Patient seen examined at bedside. Patient mildly distressed, worsening shortness of breath. Denies fever, chills, chest pain, nausea, vomiting. WBC 7.8, hemoglobin 11.3, sodium 146, chloride 110, bicarb 23.2. BUN 83, creatinine 4.0, EGFR 11. Patient had 5 L of oral intake yesterday, 1.5 L urine output. Suspect cardiorenal syndrome, recommend resuming diuretics and fluid restriction. Discussed possibility of needing dialysis with patient, if kidneys do not improve. 01/22/2025 patient currently seen in telemetry. More alert and awake. Shortness of breath much better. She put out good urine with 1 mg IV Bumex. Recommended to continue with fluid restriction and IV diuretics. Vital signs have been stable hemoglobin 12.2, sodium 147, potassium 4.3, BUN 72, creatinine 3.3, calcium 7.9, LFTs normal. Hep panel ordered. 01/23/2025: Patient seen and examined at bedside, resting comfortably. On room air. Denies SOB, chest pain. Agreeable to dialysis, although expresses some anxiety. WBC 6.8, Hg 11.8. Sodium 145, chloride 104, bicarb 28.4, BUN 77, creatinine 1.5, eGFR 13. Corrected calcium 7.9. Plan to place dialysis catheter today, will likely continue outpatient dialysis 2/week. TB test ordered, hep panel negative. 01/24/2025: Patient seen examined at bedside, resting comfortably. Patient remains on room air, denying shortness of breath, chest pain. Has dialysis catheter in place, clean and dry without erythema. WBC 7.8, hemoglobin 11.2. Sodium 144, potassium 4.5, bicarb 26.7, BUN 74, creatinine 3.8, EGFR 12. Corrected calcium 8.1. Plan for hemodialysis today, 2-hour session, with 1 L fluid removal. 01/25/2025: Patient seen today at the dialysis unit found awake, alert, oriented x 3. No overnight events reported. Vitals and labs reviewed. Patient received hemodialysis today, had about 1 L removed total dialysis hours 2 hours 30 minutes postdialysis weight 61.5 kg. Blood pressure continues to be elevated Coreg adjusted from 25 mg twice daily to 12.5, added clonidine 0.1 mg to blood pressure regimen. Patient currently pending authorization for chair time for hemodialysis sessions. Will continue to follow at this time. 01/26/2025: Patient seen and examined at bedside, alert and oriented x 3. Patient received dialysis treatment yesterday, tolerated well. Patient is currently pending authorization for chair time for hemodialysis sessions. Will continue to follow patient. Exam Vital Signs Temp Pulse Resp BP Pulse Ox O2 Del Method O2 Flow Rate 97.5 F 74 16 159/74 H 94 L Room Air 1 01/26/25 08:00 01/26/25 08:17 01/26/25 08:00 01/26/25 08:17 01/26/25 08:00 01/26/25 08:00 01/26/25 04:00 Narrative Exam GENERAL APPEARANCE: Patient seems to be comfortable, adequately hydrated and nourished. NECK: Neck supple, no JVD or bruit Patient had right breast implant. Right sided tunneled dialysis catheter in place. CARDIOVASCULAR: Heart regular, no murmurs LUNGS/CHEST: Crackles in lower lung shin ABDOMEN: Soft, nontender, nondistended. No masses. Normal bowel sounds. EXTREMITIES: 1+ edema in the lower extremities SKIN: Skin exam normal without any rashes MUSCULOSKELETAL: in bed-able to move her extremities NEUROLOGICAL : No neurological deficits Objective Labs 01/30/25 05:05 01/30/25 05:05 Labs: Laboratory Results - last 24 hr 01/20/25 01/26/25 15:45 05:57 WBC 7.1 RBC 3.47 L Hgb 11.0 L Hct 34.3 L MCV 99 MCH 31.7 MCHC 32.1 RDW Std Deviation 57.0 H Plt Count 165 D Neut % (Auto) 73 Lymph % (Auto) 11 [place] % (Auto) 13 H Eos % (Auto) 2 Baso % (Auto) 0 Neut # (Auto) 5.2 Lymph # (Auto) 0.8 L [place] # (Auto) 0.9 H Eos # (Auto) 0.2 Baso # (Auto) 0.0 Immature Gran # (Auto) 0.02 H Absolute Nucleated RBC 0.00 Immature Gran % 0 Nucleated RBC % 0 Sodium 141 Potassium 4.3 Chloride 105 Carbon Dioxide 27.0 Anion Gap 9 BUN 55 H Creatinine 3.1 H Estim Creat Clear Calc 14.4 L eGFR 15 L BUN/Creatinine Ratio 18 Glucose 203 H Calculated Osmolality 302 H Calcium 8.3 Corrected Calcium 8.5 Phosphorus 3.7 Magnesium 1.5 L Total Bilirubin 0.2 L AST 19 ALT 20 Alkaline Phosphatase 92 Total Protein 5.9 Albumin 3.7 Globulin 2.2 L Albumin/Globulin Ratio 1.7 Stl Giardia Antigen NOT DETECTED Stool Norovirus Ag NOT DETECTED ABG Interpretation ABG results: 01/18/25 01/18/25 09:50 13:43 VBG pH 7.11 L 7.17 L VBG pCO2 50 39 D VBG pO2 38 57 VBG Base Excess -14 L -14 L Quality Measures Quality Measures VTE prophylaxis Advance care planning discussed with:: patient Assessment & Plan Assessment Current Active Medications: Generic Name Dose Route Start Last Admin Trade Name Freq PRN Reason Stop Dose Admin Acetaminophen 650 mg 01/18/25 14:24 01/23/25 23:57 Acetaminophen 325 Mg Tablet PO 02/17/25 14:23 650 mg Q6H PRN Administration Fever >100.4 or pain 1-3 Albuterol/Ipratropium 3 ml 01/18/25 14:28 Albuterol/Ipratropium (Duoneb) Rt Dee 3 Ml Nebu INH 02/17/25 14:27 Q2HR PRN SHORTNESS OF BREATH OR WHEEZE Bumetanide 1 mg 01/25/25 09:00 01/26/25 08:17 Bumetanide 0.5 Mg Tablet PO 02/24/25 08:59 1 mg QDAY KENNEDY Administration Carvedilol 25 mg 01/26/25 17:30 Carvedilol 12.5 Mg Tablet PO 02/25/25 17:29 BIDWM KENNEDY Clonidine 0.1 mg 01/25/25 21:00 01/26/25 08:17 Clonidine Hcl 0.1 Mg Tablet PO 02/24/25 20:59 0.1 mg BID KENNEDY Administration Docusate Sodium 100 mg 01/18/25 14:24 Docusate Sod 100 Mg Capsule PO 02/17/25 14:23 QDAY PRN CONSTIPATION Protocol Famotidine 20 mg 01/26/25 09:00 01/26/25 08:18 Famotidine Inj 10 Mg/Ml Vial 2 Ml IVP 02/20/25 08:59 20 mg DAILY KENNEDY Administration Heparin Sodium (Porcine) 5,000 unit 01/18/25 21:00 01/26/25 08:19 Heparin Sod Inj 5000 Unit/Ml Vial SC 02/01/25 20:59 Not Given Q12HR KENNEDY Heparin Sodium (Porcine) 3,800 unit 01/24/25 09:52 01/25/25 11:17 Heparin Sod Inj 1000 Unit/Ml Vial 10 Ml INDWELLCAT 02/07/25 09:51 3,800 unit PRN PRN Administration DIALYSIS Hydralazine HCl 100 mg 01/24/25 14:00 01/26/25 05:22 Hydralazine Hcl 25 Mg Tablet PO 02/23/25 13:59 100 mg TID KENNEDY Administration Hydralazine HCl 10 mg 01/24/25 17:04 Hydralazine Inj 20 Mg/Ml Vial IV 02/23/25 16:03 Q6H PRN SBP>160, hold if HR<60 Albumin Human 25 gm in 100 mls @ 100 mls/min 01/24/25 08:25 Albuminar-25 Ivpb IV PRN PRN DIALYSIS Magnesium Sulfate 4 gm in 50 mls @ 12.5 mls/hr 01/26/25 08:55 Magnesium Sulfate Ivpb IV 01/26/25 12:54 X1 ONE Metoclopramide HCl 5 mg 01/21/25 08:14 Metoclopramide Inj 5 Mg/Ml Vial 2 Ml IVP 02/20/25 08:14 Q6HR PRN nausea or vomiting Protocol Nifedipine 30 mg 01/24/25 22:00 01/26/25 05:22 Nifedipine Xl 30 Mg Tabcr PO 02/23/25 21:59 30 mg TID KENNEDY Administration Plan 69-year-old female past medical history of HFrEF with a EF of 45 to 50%, CKD stage IV, hypertension, COPD, breast cancer status post unilateral mastectomy, meth abuse admitted for acute hypoxic respiratory failure and SREE #SREE on CKD #History of CKD stage IV #Non anion gap metabolic acidosis #Hypernatremia, asymptomatic Patient presents scented with elevated creatinine of 4.0 from a baseline of 2.5 and a BUN of 72. Patient has been noncompliant with her medications She has not been taking her Lasix and her BNP is 3280. However clinically patient is dehydrated with dry mucous membranes, decreased capillary refill. Patient received 1 dose of Lasix in the ER. Patient's lactic acid was normal at 1.3. Chloride was 117 and bicarb was 16.4 with a VBG showing a pH of 7.17 She has a history of HFrEF with previous echo showing 45 to 50% EF. Likely underlying cardiorenal syndrome Acidosis likely from persistent GI loses Patient kidney function is improving, however bicarb levels decreased. Patient received IV fluids yesterday, appears volume overloaded today. Crackles, edema improved notably. However kidney function has worsened, patient now hypernatremic. Suspect overdiuresis, patient receiving 2 mg Bumex IV twice daily. Held morning dose of Bumex, recommend pausing diuresis and fluid restriction. Patient drinks 5 L of fluid over 24-hour period, with 1.5 L urinary output. No short of breath the following morning with little change in kidney function. Tunneled dialysis catheter in place, patient received hemodialysis today, had about 1 L removed total dialysis hours 2 hours 30 minutes postdialysis weight 61.5 kg.. Hepatitis panel negative. ? Will continue inpatient dialysis ? Fluid restriction 1.8 L daily ? Trend renal function ? Avoid nephrotoxic medications ? Control hypertension ? Strict ZAKI's - Agree with Bicitra 30 mL p.o. twice daily - Plan for patient to continue hemodialysis outpatient after discharge, twice weekly at [facility] #Hypertensive emergency #Troponinemia #HFrEF exacerbation #Meth abuse #COPD #Diarrhea ? Managed as per primary team Thank you for allowing us to be part of patient care during her time at [facility] Plan of care discussed with attending Dr. Suh. Laure Daley MD PGY?1 Attending Provider Attestation/Addendum Pt is seen and examined. Labs and investigations are reviewed. Agree witth assessment and plan by resident. agree with findings. Pawan Suh MD
--- NOTE | 2025-01-26 11:45 | ESPR_ITS ---
Documentation for date of: 01/26/25 Subjective Subjective Interval history: Patient seen today at the bedside found awake, alert, orientedx3. No overnight events reported. Vital signs and labs reviewed. BP meds adjusted. Pending authorization for chair time for hemodialysis. Anticipate discharge in the next 24-48hours. Exam Vital Signs Temp Pulse Resp BP Pulse Ox O2 Del Method O2 Flow Rate 97.5 F 74 16 159/74 H 94 L Room Air 1 01/26/25 08:00 01/26/25 08:17 01/26/25 08:00 01/26/25 08:17 01/26/25 08:00 01/26/25 08:00 01/26/25 04:00 Narrative Exam Physical Exam GENERAL: NAD, AAOx3 HEENT: Moist mucosa. Eyes open, symmetrical, & clear CARDIO: Heart RRR, no obvious murmurs PULM: No noted coughing/dyspnea, CTA B/L, Right breast implant with mastectomy of left GI: Abdomen soft, nondistended, no pain on palpation. BSx4 SKIN/MSK/EXT: No wounds/rashes/edema/amputations, no pain on palpation. Pedal pulses present B/L NEURO: AAOx3, no focal neuro deficits, able to move all 4 extremities Objective Labs 01/26/25 05:57 01/26/25 05:57 Labs: Laboratory Results - last 24 hr 01/20/25 01/26/25 15:45 05:57 WBC 7.1 RBC 3.47 L Hgb 11.0 L Hct 34.3 L MCV 99 MCH 31.7 MCHC 32.1 RDW Std Deviation 57.0 H Plt Count 165 D Neut % (Auto) 73 Lymph % (Auto) 11 [place] % (Auto) 13 H Eos % (Auto) 2 Baso % (Auto) 0 Neut # (Auto) 5.2 Lymph # (Auto) 0.8 L [place] # (Auto) 0.9 H Eos # (Auto) 0.2 Baso # (Auto) 0.0 Immature Gran # (Auto) 0.02 H Absolute Nucleated RBC 0.00 Immature Gran % 0 Nucleated RBC % 0 Sodium 141 Potassium 4.3 Chloride 105 Carbon Dioxide 27.0 Anion Gap 9 BUN 55 H Creatinine 3.1 H Estim Creat Clear Calc 14.4 L eGFR 15 L BUN/Creatinine Ratio 18 Glucose 203 H Calculated Osmolality 302 H Calcium 8.3 Corrected Calcium 8.5 Phosphorus 3.7 Magnesium 1.5 L Total Bilirubin 0.2 L AST 19 ALT 20 Alkaline Phosphatase 92 Total Protein 5.9 Albumin 3.7 Globulin 2.2 L Albumin/Globulin Ratio 1.7 Stl Giardia Antigen NOT DETECTED Stool Norovirus Ag NOT DETECTED ABG Interpretation ABG results: 01/18/25 01/18/25 09:50 13:43 VBG pH 7.11 L 7.17 L VBG pCO2 50 39 D VBG pO2 38 57 VBG Base Excess -14 L -14 L Quality Measures Quality Measures VTE prophylaxis Advance care planning discussed with:: patient Assessment & Plan Assessment Current Active Medications: Generic Name Dose Route Start Last Admin Trade Name Freq PRN Reason Stop Dose Admin Acetaminophen 650 mg 01/18/25 14:24 01/23/25 23:57 Acetaminophen 325 Mg Tablet PO 02/17/25 14:23 650 mg Q6H PRN Administration Fever >100.4 or pain 1-3 Albuterol/Ipratropium 3 ml 01/18/25 14:28 Albuterol/Ipratropium (Duoneb) Rt Dee 3 Ml Nebu INH 02/17/25 14:27 Q2HR PRN SHORTNESS OF BREATH OR WHEEZE Bumetanide 1 mg 01/25/25 09:00 01/26/25 08:17 Bumetanide 0.5 Mg Tablet PO 02/24/25 08:59 1 mg QDAY KENNEDY Administration Carvedilol 25 mg 01/26/25 17:30 Carvedilol 12.5 Mg Tablet PO 02/25/25 17:29 BIDWM KENNEDY Clonidine 0.1 mg 01/25/25 21:00 01/26/25 08:17 Clonidine Hcl 0.1 Mg Tablet PO 02/24/25 20:59 0.1 mg BID KENNEDY Administration Docusate Sodium 100 mg 01/18/25 14:24 Docusate Sod 100 Mg Capsule PO 02/17/25 14:23 QDAY PRN CONSTIPATION Protocol Famotidine 20 mg 01/26/25 09:00 01/26/25 08:18 Famotidine Inj 10 Mg/Ml Vial 2 Ml IVP 02/20/25 08:59 20 mg DAILY KENNEDY Administration Heparin Sodium (Porcine) 5,000 unit 01/18/25 21:00 01/26/25 08:19 Heparin Sod Inj 5000 Unit/Ml Vial SC 02/01/25 20:59 Not Given Q12HR KENNEDY Heparin Sodium (Porcine) 3,800 unit 01/24/25 09:52 01/25/25 11:17 Heparin Sod Inj 1000 Unit/Ml Vial 10 Ml INDWELLCAT 02/07/25 09:51 3,800 unit PRN PRN Administration DIALYSIS Hydralazine HCl 100 mg 01/24/25 14:00 01/26/25 05:22 Hydralazine Hcl 25 Mg Tablet PO 02/23/25 13:59 100 mg TID KENNEDY Administration Hydralazine HCl 10 mg 01/24/25 17:04 Hydralazine Inj 20 Mg/Ml Vial IV 02/23/25 16:03 Q6H PRN SBP>160, hold if HR<60 Albumin Human 25 gm in 100 mls @ 100 mls/min 01/24/25 08:25 Albuminar-25 Ivpb IV PRN PRN DIALYSIS Magnesium Sulfate 4 gm in 50 mls @ 12.5 mls/hr 01/26/25 08:55 Magnesium Sulfate Ivpb IV 01/26/25 12:54 X1 ONE Metoclopramide HCl 5 mg 01/21/25 08:14 Metoclopramide Inj 5 Mg/Ml Vial 2 Ml IVP 02/20/25 08:14 Q6HR PRN nausea or vomiting Protocol Nifedipine 30 mg 01/24/25 22:00 01/26/25 05:22 Nifedipine Xl 30 Mg Tabcr PO 02/23/25 21:59 30 mg TID KENNEDY Administration Plan 69 y/o F with PMHx significant for hypertension, CKD, breast cancer s/p resection, COPD, CHF presents with chief complaint of shortness of breath, negative for metabolic acidosis with SREE on CKD. #SREE on CKD IV #Acute diarrhea-resolved #Hypertensive urgency-resolved Uncertain etiology at this point; differentials include cardiorenal syndrome secondary to HFmEF, worsening CKD, prerenal azotemia from diarrhea Patient has acidosis as stated. Bicarb 16.4, chloride 117, lactic acid 0.3, VBG showed pH 7.17, pCO2 39. Patient reports 5-day history of diarrhea, potential source. Differential for SREE includes cardiorenal syndrome, hypertensive emergency, and dehydration secondary to diarrhea. BNP greater than 3000. Patient appears dry on exam, dry mucous membranes, no edema, no crackles in lung. Cardiology and nephrology consulted. Kidney functions improving with repeat renal panel showing improvement in creatinine stool studies negative, pending H.Pylori - HD as scheduled -Nephrology consulted, appreciate recommendations -on Bumex 1 mg PO daily -on Coreg to 25 mg p.o. twice daily - added clonidine 0.1mg BID - on nifedipine 30mg TID -Continue hydralazine 100mg TID -Avoid nephrotoxins -Renally dose medication #Acute decompensated heart failure #HFmEF [EF 45-50%] #Cardiorenal syndrome #Elevated troponins, chronically elevated On presentation patient came in with shortness of breath associated with paroxysmal nocturnal dyspnea, orthopnea and mild lower extremity edema. Patient does have history of smoking THC and methamphetamine use. On admission patient had bilateral crackles however mucous membranes were dry and pitting edema was trace. Echo from 10/2024 shows: Normal LV size and wall thickness mild global hypokinesis. Estimated EF 45-50%. Normal RV size and function. Estimated RVSP 45 mm Hg. Severe biatrial dilatation. Mild MAC. with Mild to moderate MR. Moderate TR. Mild PI. IVC dilated. Chest x-ray showed some vascular congestion BNP of over 3000 with mildly elevated troponins -Continue Bumex 1 mg PO daily -Fluid restriction 1800cc -Strict ins and outs -Daily weights -Keep K >4, Mg >2 -Cardiology consulted, appreciate recommendations #COPD #Hypertension Patient has history as stated. Patient does not take any of her meds. On presentation, patient BNP greater than 3000, however appears clinically dry on exam. Patient complains of shortness of breath, but is not appear to be having COPD exacerbation, no wheezing on exam, no increased cough or sputum production. -on nifedipine to 30 mg p.o. TID daily -on carvedilol to 25mg p.o. twice daily -on clonidine 0.1mg BID -DuoNebs ordered as needed #Polysubstance abuse Patient has history of polysubstance abuse, including methamphetamine, alcohol, marijuana. Patient denies alcohol use, but admits to meth and marijuana. U tox positive for meth. 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 Grossman and my attending Dr. Ammy Thomas MD PGY-1 Attending Provider Attestation/Addendum 69-year-old female with multiple comorbidities including breast cancer status post resection, hypertension, hyperlipidemia, CKD and heart failure with reduced ejection fraction who presented with acute systolic heart failure exacerbation and acute kidney injury superimposed on CKD. During course of hospitalization, patient continued to have worsening kidney function with associated metabolic acidosis and concern for cardiorenal syndrome. Plan to continue IV diuretic therapy and appreciate nephrology input. He is to have worsening kidney function and plan to obtain TDC and hemodialysis. Afterwards, patient will need 3 sessions of hemodialysis prior to discharge and dialysis chair time. As of now, patient underwent 3 sessions of hemodialysis and pending dialysis chair time. Also pending PPD read. Anticipate discharge in the next 24-48 hours. I reviewed above note and agree with findings and plans. I have also personally examined the patient with medicine team and went over assessment and plan with medical team including chief internal auditor and resident physician.
[2025-01-26] MEDS: Magnesium Sulfate 4 GM Ivpb 4 GM/50 ML BAG IV (12:00)
[2025-01-26] MEDS: carVEDILOL 12.5 MG TABLET 25 MG PO (18:47)
[2025-01-26] MEDS: HEPARIN SOD INJ 5000 UNIT/ML VIAL SC (20:16)
[2025-01-27] VITALS (31 sets, daily range): BP systolic 115–193; BP diastolic 62–106; PULSE 58–79; RESP 14–24; TEMP 36.4–37.4; O2SAT 93–99; BMI 23.4
[2025-01-27 05:43] LABS: Basophils % (Auto) 0 % (0-2.5); Eosinophils # (Auto) 0.2 Thou/mm3 (0.0-0.5); Eosinophils % (Auto) 3 % (0-10); Hematocrit 32.5 % (36.0-46.0); Hemoglobin 10.6 g/dL (12.0-16.0); Immature Granulocytes % (Auto) 1 % (0-0); Immature Granulocytes Auto 0.06 Thou/mm3 (0.00-0.00); Lymphocytes # (Auto) 0.9 Thou/mm3 (1.0-4.8); Lymphocytes % (Auto) 14 % (10-50); Mean Corpuscular HGB Conc 32.6 g/dl (31.0-37.0); Mean Corpuscular Hemoglobin 31.5 pg (25.0-35.0); Mean Corpuscular Volume 97 fL (80-100); Monocytes # (Auto) 1.2 Thou/mm3 (0.0-0.8); Monocytes % (Auto) 18 % (0-12); Neutrophils # (Auto) 4.2 Thou/mm3 (1.8-7.7); Neutrophils % (Auto) 64 % (37-80); Nucleated Red Blood Cell % 0 /100 WBC (0); Platelet Count 175 Thou/mm3 (140-440); Red Blood Count 3.36 Miln/mm3 (4.00-5.20); White Blood Count 6.6 Thou/mm3 (3.6-11.0)
[2025-01-27] MEDS: NIFEdipine XL 30 MG TABCR PO ×3 (06:15→21:40)
[2025-01-27] MEDS: hydrALAZINE HCL 25 MG TABLET 100 MG PO ×3 (06:15→21:40)
[2025-01-27 06:28] LABS: Alanine Aminotransferase 26 U/L (10-49); Albumin, Serum 3.8 gm/dL (3.4-4.8); Albumin/Globulin Ratio 1.7 (1.2-2.2); Alkaline Phosphatase 122 U/L (46-116); Anion Gap 10 (7-16); Aspartate Amino Transferase 25 U/L (0-34); BUN/Creatinine Ratio 21 Ratio (12-20); Bilirubin,Total < 0.2 mg/dL (0.3-1.2); Blood Urea Nitrogen 78 mg/dL (9-23); Calcium 8.4 mg/dL (8.3-10.6); Calcium (Corrected) 8.6 mg/dL (8.5-10.1); Carbon Dioxide 25.5 mMol/L (20.0-31.0); Chloride 106 mMol/L (98-107); Creatinine (Component) 3.8 mg/dL (0.6-1.3); Estimated Creatinine Clearance 11.7 mL/min (>60); Globulin 2.2 gm/dL (2.3-3.5); Glucose 91 mg/dL (74-106); Magnesium 2.4 mg/dL (1.6-2.6); Osmolality,Calculated 304 (275-295); Phosphorous 4.5 mg/dL (2.4-5.1); Potassium 4.7 mMol/L (3.4-5.1); Sodium 141 mMol/L (136-145); eGFR 12 See Note
[2025-01-27 06:39] LABS: Helicobacter pylori Ag, Stool* NOT DETECTED (NOT DETECTED)
[2025-01-27] MEDS: carVEDILOL 12.5 MG TABLET 25 MG PO ×2 (11:46→17:18)
[2025-01-27] MEDS: cloNIDine HCL 0.1 MG TABLET PO ×2 (11:46→20:21)
--- NOTE | 2025-01-27 12:29 | PC.NURSE ---
pt. has been requesting double trays for every meal for one week. Pt. needs education on diet restrictions from RD, refuses education from RN. Referral for RD entered.
--- NOTE | 2025-01-27 13:18 | PC.NURSE ---
Talked to pt. about changing IV site, pt. refused at this time. Pt. provided with education on risk of infection with IV site being in place for loner than 72 hours. Pt. states i will think about it. Dr. Maharaj aware.
--- NOTE | 2025-01-27 14:05 | PD.HHPROG ---
Documentation for date of: 01/27/25 Subjective - Hospitalist Subjective Interval history: Patient seen and evaluated this a.m. during dialysis. Patient has been tolerating dialysis well. Blood pressure remains elevated. She denies any further episodes of shortness of breath. She reports some pain in her right shoulder due to fall prior to coming to the hospital. Afebrile. Pending TB test results and chair time for dialysis outpatient. Exam Vital Signs Temp Pulse Resp BP Pulse Ox O2 Del Method O2 Flow Rate 97.5 F 66 22 H 117/66 98 Room Air 1 01/27/25 12:00 01/27/25 13:15 01/27/25 12:00 01/27/25 13:15 01/27/25 12:00 01/27/25 12:00 01/26/25 16:00 Objective - Hospitalist Labs Diagram: 01/27/25 05:10 01/27/25 05:10 Labs: Laboratory Results - last 24 hr 01/20/25 01/27/25 15:45 05:10 WBC 6.6 RBC 3.36 L Hgb 10.6 L Hct 32.5 L MCV 97 MCH 31.5 MCHC 32.6 RDW Std Deviation 55.0 H Plt Count 175 Neut % (Auto) 64 Lymph % (Auto) 14 [place] % (Auto) 18 H Eos % (Auto) 3 Baso % (Auto) 0 Neut # (Auto) 4.2 Lymph # (Auto) 0.9 L [place] # (Auto) 1.2 H Eos # (Auto) 0.2 Baso # (Auto) 0.0 Immature Gran # (Auto) 0.06 H Absolute Nucleated RBC 0.00 Immature Gran % 1 H Nucleated RBC % 0 Sodium 141 Potassium 4.7 Chloride 106 Carbon Dioxide 25.5 Anion Gap 10 BUN 78 H Creatinine 3.8 H D Estim Creat Clear Calc 11.7 L eGFR 12 L* BUN/Creatinine Ratio 21 H Glucose 91 D Calculated Osmolality 304 H Calcium 8.4 Corrected Calcium 8.6 Phosphorus 4.5 Magnesium 2.4 Total Bilirubin < 0.2 L AST 25 ALT 26 Alkaline Phosphatase 122 H D Total Protein 6.0 Albumin 3.8 Globulin 2.2 L Albumin/Globulin Ratio 1.7 Stool H. pylori Ag NOT DETECTED ABG Interpretation ABG results: 01/18/25 01/18/25 09:50 13:43 VBG pH 7.11 L 7.17 L VBG pCO2 50 39 D VBG pO2 38 57 VBG Base Excess -14 L -14 L Assessment & Plan Patient Synopsis 69 y/o F with PMHx significant for hypertension, CKD, breast cancer s/p resection, COPD, CHF presents with chief complaint of shortness of breath, negative for metabolic acidosis with SREE on CKD. #SREE on CKD IV #Cardiorenal syndrome -Avoid nephrotoxins -Renally dose medication - HD as scheduled -Nephrology consulted, appreciate recommendations #Hypertensive urgency-resolved Uncertain etiology at this point; differentials include cardiorenal syndrome secondary to HFmEF, worsening CKD, prerenal azotemia from diarrhea Patient has acidosis as stated. Bicarb 16.4, chloride 117, lactic acid 0.3, VBG showed pH 7.17, pCO2 39. Patient reports 5-day history of diarrhea, potential source. Differential for SREE includes cardiorenal syndrome, hypertensive emergency, and dehydration secondary to diarrhea. BNP greater than 3000. Patient appears dry on exam, dry mucous membranes, no edema, no crackles in lung. Cardiology and nephrology consulted. Kidney functions improving with repeat renal panel showing improvement in creatinine -on Bumex 1 mg PO daily -on Coreg to 25 mg p.o. twice daily, clonidine 0.1mg BID, nifedipine 30mg TID, hydralazine 100mg TID - case discussed with cardiology, patient will need to f/u outpatient and will be transitioned to ARB not that patient is on dialysis, in replacement of clonidine #Acute decompensated heart failure #HFmEF [EF 45-50%] #Elevated troponins, chronically elevated On presentation patient came in with shortness of breath associated with paroxysmal nocturnal dyspnea, orthopnea and mild lower extremity edema. Patient does have history of smoking THC and methamphetamine use. On admission patient had bilateral crackles however mucous membranes were dry and pitting edema was trace. Echo from 10/2024 shows: Normal LV size and wall thickness mild global hypokinesis. Estimated EF 45-50%. Normal RV size and function. Estimated RVSP 45 mm Hg. Severe biatrial dilatation. Mild MAC. with Mild to moderate MR. Moderate TR. Mild PI. IVC dilated. Chest x-ray showed some vascular congestion BNP of over 3000 with mildly elevated troponins -Continue Bumex 1 mg PO daily -Fluid restriction 1800cc -Strict ins and outs -Daily weights -Keep K >4, Mg >2 -Cardiology consulted, appreciate recommendations #COPD Patient has history as stated. Patient does not take any of her meds. On presentation, patient BNP greater than 3000, however appears clinically dry on exam. Patient complains of shortness of breath, but is not appear to be having COPD exacerbation, no wheezing on exam, no increased cough or sputum production. #Polysubstance abuse Patient has history of polysubstance abuse, including methamphetamine, alcohol, marijuana. Patient denies alcohol use, but admits to meth and marijuana. U tox positive for meth. -Monitor for signs of withdrawal -[place] patient regarding resources for addiction #Acute diarrhea-resolved stool studies negative, pending [facility] Hospital Management: Dispo: tele, pending chair time auth DVT prophylaxis: Heparin GI prophylaxis: None Diet: Cardiac, renal, fluid restrict 2000cc Lines: Peripheral IV, HD catheter Code status: Full code Nutrition: renal diet DVT Prophylaxis: heparin Code Status: full disposition: tele Time Spent with Patient Time: Total time spent is greater than 50% in coordination of care (as documented) at patient's floor/unit and/or counseling patient: 25min Time with patient: 25 - 35 minutes Reason for Continued Stay Reason for continued stay: other Quality Measures Quality Measures VTE prophylaxis Advance care planning discussed with:: patient
--- NOTE | 2025-01-27 14:33 | PC.SS ---
Addendum entered by Nat Benedict 01/31/25 07:52: Late note: SS received a call that patient's friend, Jonh could not meet patient at the motel. Patient will stay another night to finalize d/c plans to ensure safety. Addendum entered by Nat Benedict 01/27/25 15:38: SS spoke to [facility] and they confirmed insurance approved financially but they will be providing further detail on that authorization on Thursday. Therefore, the charge nurse states they cannot provide chair time until Thursday to see what the details are of the authorization. Original Note: Follow up note: SS contacted [facility] and spoke to CONSTANZA Glover charge nurse who states they still do not have a dialysis financial clearance. SS asked when this was put in and they state it was requested on Thursday, 01-23. SS inquired if the can contact corporate to verify why it is taking so long for approval. We are ready to discharge patient. However, we need an o/p chair time for dialysis. Charge nurse to contact us back if not today then Thursday. TB to be read today. If patient is denied for dialysis clearance then we will need to look at [facility].
--- NOTE | 2025-01-27 15:16 | ESPR_ITS ---
Documentation for date of: 01/27/25 Subjective Subjective Interval history: Patient seen and examined at the bedside. No new cardiac complaints. Patient continues to have hemodialysis and the patient will be likely on hemodialysis going forward Blood pressure is better controlled after increasing the Coreg to 25 mg twice daily. Continue rest of her blood pressure medications for now and blood pressure continues to hide then patient should be started on losartan as she will be permanently on dialysis. Patient Otherwise doing well and is pending TB test results and also outpatient dialysis arrangements. Exam Vital Signs Temp Pulse Resp BP Pulse Ox O2 Del Method O2 Flow Rate 97.5 F 66 22 H 117/66 98 Room Air 1 01/27/25 12:00 01/27/25 13:15 01/27/25 12:00 01/27/25 13:15 01/27/25 12:00 01/27/25 12:00 01/26/25 16:00 Narrative Exam General: AOx3, no acute distress, NAD, on room air. Right HD cath noted. HEENT: dry mucous membranes, NC/AT, bilateral sclera anicteric Cardiovascular: regular rate and rhythm, S1/S2 present, no murmurs appreciated Pulmonary: mild bibasilar crackle, no wheezing. Abdominal: soft, non-tender, non-distended, no rebound/guarding, normal bowel sounds present Musculoskeletal: No BLE pitting edema, large right-sided breast implant, normal ROM Skin: warm and dry, intact, no rashes Neuro: CN II-XII intact, no focal deficits Objective Labs 01/27/25 05:10 01/27/25 05:10 Labs: Laboratory Results - last 24 hr 01/20/25 01/27/25 15:45 05:10 WBC 6.6 RBC 3.36 L Hgb 10.6 L Hct 32.5 L MCV 97 MCH 31.5 MCHC 32.6 RDW Std Deviation 55.0 H Plt Count 175 Neut % (Auto) 64 Lymph % (Auto) 14 [place] % (Auto) 18 H Eos % (Auto) 3 Baso % (Auto) 0 Neut # (Auto) 4.2 Lymph # (Auto) 0.9 L [place] # (Auto) 1.2 H Eos # (Auto) 0.2 Baso # (Auto) 0.0 Immature Gran # (Auto) 0.06 H Absolute Nucleated RBC 0.00 Immature Gran % 1 H Nucleated RBC % 0 Sodium 141 Potassium 4.7 Chloride 106 Carbon Dioxide 25.5 Anion Gap 10 BUN 78 H Creatinine 3.8 H D Estim Creat Clear Calc 11.7 L eGFR 12 L* BUN/Creatinine Ratio 21 H Glucose 91 D Calculated Osmolality 304 H Calcium 8.4 Corrected Calcium 8.6 Phosphorus 4.5 Magnesium 2.4 Total Bilirubin < 0.2 L AST 25 ALT 26 Alkaline Phosphatase 122 H D Total Protein 6.0 Albumin 3.8 Globulin 2.2 L Albumin/Globulin Ratio 1.7 Stool H. pylori Ag NOT DETECTED ABG Interpretation ABG results: 01/18/25 01/18/25 09:50 13:43 VBG pH 7.11 L 7.17 L VBG pCO2 50 39 D VBG pO2 38 57 VBG Base Excess -14 L -14 L Assessment & Plan A&P Narrative 68-year-old female with a past medical history of Mild CAD by cath in June 2024, nonischemic cardiomyopathy with severe systolic congestive heart failure with an EF of 30 to 35% 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 Patient known to me from previous admission in June 2024 when she was diagnosed with severe systolic congestive heart failure. Patient was adequately diuresed and had a left and right heart cardiac catheterization performed at that time which showed mild CAD of 30% stenosis in the LAD. Nonischemic cardiomyopathy was diagnosed mostly secondary to methamphetamine abuse and history of drug abuse. Patient was started on some goal-directed medical therapy but did not follow-up regularly in the office. Patient apparently was admitted again in October 2024 when an echo was repeated and showed EF improved to 40 to 45%. Now she presents again with shortness of breath orthopnea as well as bilateral lower extremity edema. Patient continues to use methamphetamine and says that she has decreased the amount that she is using. Patient social situation is also not good as she was homeless previously a and was living in a trailer but at the present point of time does not have a home. Does not have anyone to take care of her closely or bring her to the appointments. Upon arrival to the ED, BP 206/135, saturating 97% on 6 L nasal cannula but upon evaluation saturating 94% on room air, HR 85, RR 20, afebrile. CBC unremarkable. VBG showed pH 7.17, PCO2 39, PO2 57. CHEM panel showed K 5.1, chloride 117, HCO3 16, BUN 72, creatinine 4, GFR 11, Mg 1.3, AST/ALT 50/51, alk phos 139, BNP > 3000, troponin 0.084 -> 0.077. UA showed 2+ protein, 1+ blood, 6 RBC. U tox positive for amphetamine. CXR showed mild vascular congestion, mildly enlarged cardiac contour, but no pneumonia or pulmonary edema. EKG showed HR 85, NSR, no ST or T wave abnormalities. On examination patient has significant bilateral crackles and has at least 1-2+ edema, puffy face as well as 2 or 6 systolic murmur heard at the apex. Difficult to assess the JVD. Assessment and plan: 1. Acute on chronic systolic CHF exacerbation 2. Acute on chronic kidney disease stage IV 3. Possible cardiorenal syndrome with hepatic congestion from the CHF exacerbation 4. Nonischemic cardiomyopathy mostly secondary to drug abuse 5. Mild CAD by cardiac cath in June 2024 6. Elevated LFTs mostly secondary to hepatic congestion 7. Mildly elevated troponins mostly secondary to NSTEMI type II 8. Hypertensive urgency 9. History of COPD not on home oxygen 10. Polysubstance abuse with meth abuse as well as history of smoking and continues to smoke currently 11. breast cancer s/p bilateral mastectomy 1995 and history of breast implants 12. Homeless Patient presented with shortness of breath, leg swelling as well as orthopnea for the past few weeks. Patient on examination has bilateral crackles and has 1 to + leg edema along with puffy face. Patient is hypoxic requiring 4 to 6 L via nasal cannula on arrival which improved after diuresis. Chest x-ray does show mild vascular congestion and BNP was greater than 3280. Also patient presented with hypertensive urgency with a blood pressure of 206/135. BUN and creatinine were at 72 and 4.1. Patient baseline creatinine around 2.5-2.7 during the last admission even in November 2024 Patient has elevated LFTs also indicating hepatic congestion. Overall clinical picture suggest acute on chronic systolic congestive heart failure with cardiorenal syndrome presentation. Recommend aggressive diuresis with the Lasix 40 mg IV twice daily and can change to Bumex if there is no signs of urine output. Discontinued IV fluids for now. Strict input output, daily weights and 2 g sodium diet. Recent echo reviewed and showed an EF of 40 to 45% with mild systolic dysfunction and previous echo was severe systolic dysfunction with an EF of 30 to 35%. Patient appears to have not been taking her medications including any medications for the heart failure or for her blood pressure and presented with high blood pressure 206/135 mmHg. Recommend to aggressively diurese the patient and start the patient on amlodipine 10 mg once daily for now and will start beta-nidhi later once the patient is adequately diuresed. No BETTY inhibitor's or ARB's in view of the SREE on CKD Patient with acute kidney injury on CKD stage IV. Nephrology was also consulted by the primary team and patient might eventually need dialysis if kidney function does not improve with diuresis. Patient has mildly elevated troponins of 0.07 and 0.08 admitted mostly secondary to acute CHF exacerbation and patient already had echocardiogram which showed mild CAD in June 2024. Patient counseled regarding quitting smoking completely as well as drug abuse Patient counseled and recommended to make sure to show for follow-up appointments with PCP, nephrology as well as cardiology. Recommended protective services social worker as well as case management consult for placement for this patient and also will need possible rehab at the time of discharge including drug rehab. 01/19/2025-patient did not diurese much last night and will change the patient from Lasix to Bumex 2 mg IV twice a day for now. Continue strict input output, daily weights and 2 g sodium diet. Patient overall appears to be better in the evening around send output was greater than 1 L. Kidney function today showed creatinine of 3.8 and was 4.1 yesterday. Blood pressure is in the range of 160 to 180 mmHg. Continue amlodipine for now and will restart Coreg once patient is diuresed well.Rest of the vitals stable 01/20/2025 - Patient diuresed well with Bumex yesterday and was net negative around 1 to 2 L. BUN is 83 today and creatinine of 4.0 but sodium increased to 146 and chloride is also 112. Leg edema and facial edema has improved considerably but patient appears to be intravascularly depleted but still has some extravascular fluid with 1+ leg edema. Nephrology recommended to hold the Bumex for today and also to hold the fluid restriction and will reevaluate tomorrow morning for further diuresis based on the labs. 01/21/25 - Yesterday patient did drink up to 5 L of fluid after removing the fluid restriction. She is net +4 L from yesterday and appears to be fluid overloaded Discussed with nephrology team again and patient has cardiorenal syndrome and recommended to restart IV diuresis along with fluid restriction. As patient is hyponatremic causing intravascular depletion due to aggressive diuresis will decrease the Bumex dose to 1 mg IV once daily and for now Strict input output, daily weights and 2 g sodium diet. Patient again recommended to restrict her fluid intake. Patient blood pressure continues to be elevated for now continue with amlodipine 10 mg once daily and will restart the patient Coreg which is her home medication and add hydralazine if needed no BETTY or ARB given the CKD stage IV. 01/23/2025 Currently NPO for HD cath. Continued on BUMEX 1 mg daily and fluid restriction, had 2.2L urine output, overall 4.8L positive. Weight today 63.5, same as presentation. Has bibasilar crackles on exam, but no LE edema. Satting well on room air. Renal function remains poor, CR 3.3 > 3.6, GFR 14 > 13, BUN 77. CBC reviewed and appears at baseline. LFTs wnl, glucose 206. Corrected calcium 7.5, remainder elytes normal. At this point, cardiorenal type 2 still most likely dx, as she is very dependent on diuresis, goes into fluid overload whenever diuresis discontinued. However, she has poor tolerance for diuresis with worsening renal function. Nephrology recommended ultrafiltration twice a week, agree with plan. continue diuresis as pt with good urine output, fluid restriction and daily weights. BP not well controlled, SBP 150-160s despite multiple meds, including NIFEDIPINE, CARVEDILOL and HYDRALAZINE. However, BP, will likely improve with hemodialysis. Continue avoiding BETTY and ARB's in settings of CKD stage IV. Overall, high concern for HD and medication non-compliance given her living situation. Appears primary team working on stable housing, which she will need. 01/24/2025 HD cath placed, scheduled for HD session today. had 580 cc urine output with BUMEX 1 mg. Overall 4.2 L net positive. No improvement in renal function, CR 3.8, BUN 74, EGFR 12. Magnesium 1.4, corrected calcium 8.1, remainder electrolyte WNL. CBC stable. Will continue BUMEX 1 mg daily, and HD twice a week. BP 151/92 and will likely improve with ultrafiltration. Continue with current blood pressure meds. 01/25/2025 HD session scheduled for today. BUMEX was held overnight, urine output roguhly 500 cc. Renal function showing slight improvement: BUN 64, CR 3.3, EGFR 14. Stable BP 150/86, HR 86. Currently pending outpatient HD chair placement. Will continue with BUMEX, blood pressure control and hemodialysis as needed. 01/26/2025 Doing well overall. 1.4 L fluid was removed during HD yesterday, she had roughly 500 cc of urine output this morning. Labs showed BUN 85, CR 3.1, magnesium 1.5, potassium 4.3, CBC at baseline. Primary team repleted magnesium. Will continue with hemodialysis per nephrology. BP 159/74, still elevated, increased COREG to 25 mg BID. Continue all other medications as listed. Maintain magnesium greater than 2, potassium greater than 4. 01/27/2025 - Patient continues to have hemodialysis and the patient will be likely on hemodialysis going forward. Blood pressure is better controlled after increasing the Coreg to 25 mg twice daily.Continue rest of her blood pressure medications for now and blood pressure continues to hide then patient should be started on losartan as she will be permanently on dialysis. Patient Otherwise doing well and is pending TB test results and also outpatient dialysis arrangements. Management of rest of the medical conditions as per primary team and other consultants. Thank you for the consult and allowing me to participate in the care of the patient. Cardiology will continue to follow. Pillo Mauricio M.D. Interventional Cardiology Time Spent With Patient Time: Total time spent is greater than 50% in coordination of care (as documented) at patient's floor/unit and/or counseling patient:
--- NOTE | 2025-01-27 18:06 | PC.NURSE ---
called RT for breathing tx per pt. request
[2025-01-27] MEDS: ALBUTEROL/IPRATROPIUM (Duoneb) RT SOL 3 ML NEBU INH (18:13)
[2025-01-27] MEDS: HEPARIN SOD INJ 5000 UNIT/ML VIAL SC (20:21)
[2025-01-28] VITALS (19 sets, daily range): BP systolic 128–159; BP diastolic 53–77; PULSE 64–84; RESP 11–28; TEMP 36.1–36.9; O2SAT 93–97
[2025-01-28 05:26] LABS: Basophils % (Auto) 1 % (0-2.5); Eosinophils # (Auto) 0.3 Thou/mm3 (0.0-0.5); Eosinophils % (Auto) 4 % (0-10); Hematocrit 33.4 % (36.0-46.0); Hemoglobin 10.7 g/dL (12.0-16.0); Immature Granulocytes % (Auto) 1 % (0-0); Immature Granulocytes Auto 0.04 Thou/mm3 (0.00-0.00); Lymphocytes # (Auto) 1.1 Thou/mm3 (1.0-4.8); Lymphocytes % (Auto) 15 % (10-50); Mean Corpuscular Hemoglobin 31.6 pg (25.0-35.0); Mean Corpuscular Volume 99 fL (80-100); Monocytes # (Auto) 1.2 Thou/mm3 (0.0-0.8); Monocytes % (Auto) 16 % (0-12); Neutrophils # (Auto) 4.8 Thou/mm3 (1.8-7.7); Neutrophils % (Auto) 64 % (37-80); Nucleated Red Blood Cell % 0 /100 WBC (0); Platelet Count 181 Thou/mm3 (140-440); RDW Standard Deviation 55.9 fL (36.4-46.3); Red Blood Count 3.39 Miln/mm3 (4.00-5.20); White Blood Count 7.5 Thou/mm3 (3.6-11.0)
[2025-01-28] MEDS: hydrALAZINE HCL 25 MG TABLET 100 MG PO ×3 (05:27→22:20)
[2025-01-28] MEDS: NIFEdipine XL 30 MG TABCR PO ×3 (05:28→22:20)
[2025-01-28 06:02] LABS: Alanine Aminotransferase 26 U/L (10-49); Albumin, Serum 3.8 gm/dL (3.4-4.8); Albumin/Globulin Ratio 1.7 (1.2-2.2); Alkaline Phosphatase 150 U/L (46-116); Anion Gap 10 (7-16); Aspartate Amino Transferase 24 U/L (0-34); BUN/Creatinine Ratio 21 Ratio (12-20); Bilirubin,Total < 0.2 mg/dL (0.3-1.2); Blood Urea Nitrogen 68 mg/dL (9-23); Calcium 8.4 mg/dL (8.3-10.6); Calcium (Corrected) 8.6 mg/dL (8.5-10.1); Carbon Dioxide 26.5 mMol/L (20.0-31.0); Chloride 104 mMol/L (98-107); Creatinine (Component) 3.2 mg/dL (0.6-1.3); Estimated Creatinine Clearance 13.9 mL/min (>60); Globulin 2.3 gm/dL (2.3-3.5); Glucose 170 mg/dL (74-106); Magnesium 1.8 mg/dL (1.6-2.6); Osmolality,Calculated 303 (275-295); Phosphorous 4.4 mg/dL (2.4-5.1); Potassium 4.1 mMol/L (3.4-5.1); Sodium 140 mMol/L (136-145); Total Protein 6.1 gm/dL (5.7-8.2); eGFR 15 See Note
--- NOTE | 2025-01-28 08:47 | PD.RESPRO ---
Documentation for date of: 01/28/25 Subjective Subjective Interval history: No acute overnight events. Seen and examined at bedside. Reports feeling well today. Denies fever, chills, headaches, chest pain, sob, cough, GI or urinary symptoms. She had wheezing on exam, has ALBUTEROL on board PRN, ordered X1. HD yesterday, 2.1 L fluid removed, urine output poor, overall 1.5 L net positive. Renal panel showing BUN 68, CR 3.2, GFR 50, electrolytes WNL. CBC at baseline without acute changes. BP 144/75, HR 84, on room air and satting well Continue with hemodialysis and BUMEX 1 mg q. day. Continue BP meds CARVEDILOL 25 mg BID, CLONIDINE 0.1 mg BID, HYDRALAZINE 100 mg TID, NIFEDIPINE 30 mg TID. Consider adding BETTY/ARB. Exam Vital Signs Temp Pulse Resp BP Pulse Ox O2 Del Method O2 Flow Rate 98.5 F 69 23 H 144/75 H 94 L Room Air 1 01/28/25 08:00 01/28/25 08:00 01/28/25 08:00 01/28/25 08:00 01/28/25 08:00 01/28/25 08:00 01/26/25 16:00 Narrative Exam General: AOx3, no acute distress, NAD, on room air. Right HD cath noted. HEENT: dry mucous membranes, NC/AT, bilateral sclera anicteric Cardiovascular: regular rate and rhythm, S1/S2 present, no murmurs appreciated Pulmonary: mild bibasilar crackle, no wheezing. Abdominal: soft, non-tender, non-distended, no rebound/guarding, normal bowel sounds present Musculoskeletal: No BLE pitting edema, large right-sided breast implant, normal ROM Skin: warm and dry, intact, no rashes Neuro: CN II-XII intact, no focal deficits Objective Labs 01/29/25 05:12 01/29/25 05:12 Labs: Laboratory Results - last 24 hr 01/28/25 05:08 WBC 7.5 RBC 3.39 L Hgb 10.7 L Hct 33.4 L MCV 99 MCH 31.6 MCHC 32.0 RDW Std Deviation 55.9 H Plt Count 181 Neut % (Auto) 64 Lymph % (Auto) 15 Sheridan % (Auto) 16 H Eos % (Auto) 4 Baso % (Auto) 1 Neut # (Auto) 4.8 Lymph # (Auto) 1.1 Sheridan # (Auto) 1.2 H Eos # (Auto) 0.3 Baso # (Auto) 0.0 Immature Gran # (Auto) 0.04 H Absolute Nucleated RBC 0.00 Immature Gran % 1 H Nucleated RBC % 0 Sodium 140 Potassium 4.1 D Chloride 104 Carbon Dioxide 26.5 Anion Gap 10 BUN 68 H Creatinine 3.2 H D Estim Creat Clear Calc 13.9 L eGFR 15 L BUN/Creatinine Ratio 21 H Glucose 170 H D Calculated Osmolality 303 H Calcium 8.4 Corrected Calcium 8.6 Phosphorus 4.4 Magnesium 1.8 Total Bilirubin < 0.2 L AST 24 ALT 26 Alkaline Phosphatase 150 H D Total Protein 6.1 Albumin 3.8 Globulin 2.3 Albumin/Globulin Ratio 1.7 ABG Interpretation ABG results: 01/18/25 01/18/25 09:50 13:43 VBG pH 7.11 L 7.17 L VBG pCO2 50 39 D VBG pO2 38 57 VBG Base Excess -14 L -14 L Quality Measures Quality Measures VTE prophylaxis Advance care planning discussed with:: patient Assessment & Plan Assessment Current Active Medications: Generic Name Dose Route Start Last Admin Trade Name Freq PRN Reason Stop Dose Admin Acetaminophen 650 mg 01/18/25 14:24 01/23/25 23:57 Acetaminophen 325 Mg Tablet PO 02/17/25 14:23 650 mg Q6H PRN Administration Fever >100.4 or pain 1-3 Albuterol/Ipratropium 3 ml 01/18/25 14:28 01/27/25 18:13 Albuterol/Ipratropium (Duoneb) Rt Dee 3 Ml Nebu INH 02/17/25 14:27 3 ml Q2HR PRN Administration SHORTNESS OF BREATH OR WHEEZE Bumetanide 1 mg 01/25/25 09:00 01/27/25 11:21 Bumetanide 0.5 Mg Tablet PO 02/24/25 08:59 Not Given QDAY KENNEDY Carvedilol 25 mg 01/26/25 17:30 01/27/25 17:18 Carvedilol 12.5 Mg Tablet PO 02/25/25 17:29 25 mg BIDWM KENNEDY Administration Clonidine 0.1 mg 01/25/25 21:00 01/27/25 20:21 Clonidine Hcl 0.1 Mg Tablet PO 02/24/25 20:59 0.1 mg BID KENNEDY Administration Docusate Sodium 100 mg 01/18/25 14:24 Docusate Sod 100 Mg Capsule PO 02/17/25 14:23 QDAY PRN CONSTIPATION Protocol Famotidine 20 mg 01/26/25 09:00 01/27/25 11:21 Famotidine Inj 10 Mg/Ml Vial 2 Ml IVP 02/20/25 08:59 Not Given DAILY KENNEDY Heparin Sodium (Porcine) 5,000 unit 01/18/25 21:00 01/27/25 20:21 Heparin Sod Inj 5000 Unit/Ml Vial SC 02/01/25 20:59 5,000 unit Q12HR KENNEDY Administration Heparin Sodium (Porcine) 3,800 unit 01/24/25 09:52 01/25/25 11:17 Heparin Sod Inj 1000 Unit/Ml Vial 10 Ml INDWELLCAT 02/07/25 09:51 3,800 unit PRN PRN Administration DIALYSIS Hydralazine HCl 100 mg 01/24/25 14:00 01/28/25 05:27 Hydralazine Hcl 25 Mg Tablet PO 02/23/25 13:59 100 mg TID KENNEDY Administration Hydralazine HCl 10 mg 01/24/25 17:04 Hydralazine Inj 20 Mg/Ml Vial IV 02/23/25 16:03 Q6H PRN SBP>160, hold if HR<60 Albumin Human 25 gm in 100 mls @ 100 mls/min 01/24/25 08:25 Albuminar-25 Ivpb IV PRN PRN DIALYSIS Losartan Potassium 25 mg 01/28/25 09:00 Losartan Potassium 25 Mg Tablet PO 02/27/25 08:59 QDAY KENNEDY Metoclopramide HCl 5 mg 01/21/25 08:14 Metoclopramide Inj 5 Mg/Ml Vial 2 Ml IVP 02/20/25 08:14 Q6HR PRN nausea or vomiting Protocol Nifedipine 30 mg 01/24/25 22:00 01/28/25 05:28 Nifedipine Xl 30 Mg Tabcr PO 02/23/25 21:59 30 mg TID KENNEDY Administration Plan 68-year-old female with a past medical history of Mild CAD by cath in June 2024, nonischemic cardiomyopathy with severe systolic congestive heart failure with an EF of 30 to 35% 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 Patient known to me from previous admission in June 2024 when she was diagnosed with severe systolic congestive heart failure. Patient was adequately diuresed and had a left and right heart cardiac catheterization performed at that time which showed mild CAD of 30% stenosis in the LAD. Nonischemic cardiomyopathy was diagnosed mostly secondary to methamphetamine abuse and history of drug abuse. Patient was started on some goal-directed medical therapy but did not follow-up regularly in the office. Patient apparently was admitted again in October 2024 when an echo was repeated and showed EF improved to 40 to 45%. Now she presents again with shortness of breath orthopnea as well as bilateral lower extremity edema. Patient continues to use methamphetamine and says that she has decreased the amount that she is using. Patient social situation is also not good as she was homeless previously a and was living in a trailer but at the present point of time does not have a home. Does not have anyone to take care of her closely or bring her to the appointments. Upon arrival to the ED, BP 206/135, saturating 97% on 6 L nasal cannula but upon evaluation saturating 94% on room air, HR 85, RR 20, afebrile. CBC unremarkable. VBG showed pH 7.17, PCO2 39, PO2 57. CHEM panel showed K 5.1, chloride 117, HCO3 16, BUN 72, creatinine 4, GFR 11, Mg 1.3, AST/ALT 50/51, alk phos 139, BNP > 3000, troponin 0.084 -> 0.077. UA showed 2+ protein, 1+ blood, 6 RBC. U tox positive for amphetamine. CXR showed mild vascular congestion, mildly enlarged cardiac contour, but no pneumonia or pulmonary edema. EKG showed HR 85, NSR, no ST or T wave abnormalities. On examination patient has significant bilateral crackles and has at least 1-2+ edema, puffy face as well as 2 or 6 systolic murmur heard at the apex. Difficult to assess the JVD. Assessment and plan: 1. Acute on chronic systolic CHF exacerbation 2. ESRD on HD - started 01/26/2025 3. Possible cardiorenal syndrome with hepatic congestion from the CHF exacerbation 4. Nonischemic cardiomyopathy mostly secondary to drug abuse 5. Mild CAD by cardiac cath in June 2024 6. Elevated LFTs mostly secondary to hepatic congestion 7. Mildly elevated troponins mostly secondary to NSTEMI type II 8. Hypertensive urgency 9. History of COPD not on home oxygen 10. Polysubstance abuse with meth abuse as well as history of smoking and continues to smoke currently 11. breast cancer s/p bilateral mastectomy 1995 and history of breast implants 12. Homeless Patient presented with shortness of breath, leg swelling as well as orthopnea for the past few weeks. Patient on examination has bilateral crackles and has 1 to + leg edema along with puffy face. Patient is hypoxic requiring 4 to 6 L via nasal cannula on arrival which improved after diuresis. Chest x-ray does show mild vascular congestion and BNP was greater than 3280. Also patient presented with hypertensive urgency with a blood pressure of 206/135. BUN and creatinine were at 72 and 4.1. Patient baseline creatinine around 2.5-2.7 during the last admission even in November 2024 Patient has elevated LFTs also indicating hepatic congestion. Overall clinical picture suggest acute on chronic systolic congestive heart failure with cardiorenal syndrome presentation. Recommend aggressive diuresis with the Lasix 40 mg IV twice daily and can change to Bumex if there is no signs of urine output. Discontinued IV fluids for now. Strict input output, daily weights and 2 g sodium diet. Recent echo reviewed and showed an EF of 40 to 45% with mild systolic dysfunction and previous echo was severe systolic dysfunction with an EF of 30 to 35%. Patient appears to have not been taking her medications including any medications for the heart failure or for her blood pressure and presented with high blood pressure 206/135 mmHg. Recommend to aggressively diurese the patient and start the patient on amlodipine 10 mg once daily for now and will start beta-nidhi later once the patient is adequately diuresed. No BETTY inhibitor's or ARB's in view of the SREE on CKD Patient with acute kidney injury on CKD stage IV. Nephrology was also consulted by the primary team and patient might eventually need dialysis if kidney function does not improve with diuresis. Patient has mildly elevated troponins of 0.07 and 0.08 admitted mostly secondary to acute CHF exacerbation and patient already had echocardiogram which showed mild CAD in June 2024. Patient counseled regarding quitting smoking completely as well as drug abuse Patient counseled and recommended to make sure to show for follow-up appointments with PCP, nephrology as well as cardiology. Recommended director social welfare as well as case management consult for placement for this patient and also will need possible rehab at the time of discharge including drug rehab. 01/19/2025-patient did not diurese much last night and will change the patient from Lasix to Bumex 2 mg IV twice a day for now. Continue strict input output, daily weights and 2 g sodium diet. Patient overall appears to be better in the evening around send output was greater than 1 L. Kidney function today showed creatinine of 3.8 and was 4.1 yesterday. Blood pressure is in the range of 160 to 180 mmHg. Continue amlodipine for now and will restart Coreg once patient is diuresed well.Rest of the vitals stable 01/20/2025 - Patient diuresed well with Bumex yesterday and was net negative around 1 to 2 L. BUN is 83 today and creatinine of 4.0 but sodium increased to 146 and chloride is also 112. Leg edema and facial edema has improved considerably but patient appears to be intravascularly depleted but still has some extravascular fluid with 1+ leg edema. Nephrology recommended to hold the Bumex for today and also to hold the fluid restriction and will reevaluate tomorrow morning for further diuresis based on the labs. 01/21/25 - Yesterday patient did drink up to 5 L of fluid after removing the fluid restriction. She is net +4 L from yesterday and appears to be fluid overloaded Discussed with nephrology team again and patient has cardiorenal syndrome and recommended to restart IV diuresis along with fluid restriction. As patient is hyponatremic causing intravascular depletion due to aggressive diuresis will decrease the Bumex dose to 1 mg IV once daily and for now Strict input output, daily weights and 2 g sodium diet. Patient again recommended to restrict her fluid intake. Patient blood pressure continues to be elevated for now continue with amlodipine 10 mg once daily and will restart the patient Coreg which is her home medication and add hydralazine if needed no BETTY or ARB given the CKD stage IV. 01/23/2025 Currently NPO for HD cath. Continued on BUMEX 1 mg daily and fluid restriction, had 2.2L urine output, overall 4.8L positive. Weight today 63.5, same as presentation. Has bibasilar crackles on exam, but no LE edema. Satting well on room air. Renal function remains poor, CR 3.3 > 3.6, GFR 14 > 13, BUN 77. CBC reviewed and appears at baseline. LFTs wnl, glucose 206. Corrected calcium 7.5, remainder elytes normal. At this point, cardiorenal type 2 still most likely dx, as she is very dependent on diuresis, goes into fluid overload whenever diuresis discontinued. However, she has poor tolerance for diuresis with worsening renal function. Nephrology recommended ultrafiltration twice a week, agree with plan. continue diuresis as pt with good urine output, fluid restriction and daily weights. BP not well controlled, SBP 150-160s despite multiple meds, including NIFEDIPINE, CARVEDILOL and HYDRALAZINE. However, BP, will likely improve with hemodialysis. Continue avoiding BETTY and ARB's in settings of CKD stage IV. Overall, high concern for HD and medication non-compliance given her living situation. Appears primary team working on stable housing, which she will need. 01/24/2025 HD cath placed, scheduled for HD session today. had 580 cc urine output with BUMEX 1 mg. Overall 4.2 L net positive. No improvement in renal function, CR 3.8, BUN 74, EGFR 12. Magnesium 1.4, corrected calcium 8.1, remainder electrolyte WNL. CBC stable. Will continue BUMEX 1 mg daily, and HD twice a week. BP 151/92 and will likely improve with ultrafiltration. Continue with current blood pressure meds. 01/25/2025 HD session scheduled for today. BUMEX was held overnight, urine output roguhly 500 cc. Renal function showing slight improvement: BUN 64, CR 3.3, EGFR 14. Stable BP 150/86, HR 86. Currently pending outpatient HD chair placement. Will continue with BUMEX, blood pressure control and hemodialysis as needed. 01/26/2025 Doing well overall. 1.4 L fluid was removed during HD yesterday, she had roughly 500 cc of urine output this morning. Labs showed BUN 85, CR 3.1, magnesium 1.5, potassium 4.3, CBC at baseline. Primary team repleted magnesium. Will continue with hemodialysis per nephrology. BP 159/74, still elevated, increased COREG to 25 mg BID. Continue all other medications as listed. Maintain magnesium greater than 2, potassium greater than 4. 01/27/2025 - Patient continues to have hemodialysis and the patient will be likely on hemodialysis going forward. Blood pressure is better controlled after increasing the Coreg to 25 mg twice daily.Continue rest of her blood pressure medications for now and blood pressure continues to hide then patient should be started on losartan as she will be permanently on dialysis. Patient Otherwise doing well and is pending TB test results and also outpatient dialysis arrangements. 01/27/2025. Had HD session yesterday, 2.1 L removed, poor urine output, active bleeding of . Renal function showing CR 3.2, BUN 68, GFR 13, normal electrolytes. BP improved 144/75, HR 84. ? Continue with hemodialysis ? Continue BUMEX 1 mg q. day. ? Continue CARVEDILOL 25 mg BID ? Continue CLONIDINE 0.1 mg BID ? Continue HYDRALAZINE 100 mg TID ? Continue NIFEDIPINE 30 mg TID ? Consider adding BETTY/ARB Management of rest of the medical conditions as per primary team and other consultants. Thank you for the consult and allowing me to participate in the care of the patient. Cardiology will continue to follow. Thank you for the opportunity to participate in the patient's care. Case was discussed with attending, Dr. Mauricio. Jacquie Eduardo, DO PGYI Attending Provider Attestation/Addendum I have personally seen and examined the patient separately on the above date of service and discussed the plan of care with the resident. I reviewed the resident Dr. Jacquie Eduardo consultation progress note and agree with the resident findings and plan in the note above and have also edited the documentation to reflect my findings and plan. Pillo Mauricio M.D. Interventional Cardiology
[2025-01-28] MEDS: BUMETANIDE 0.5 MG TABLET 1 MG PO (09:26)
[2025-01-28] MEDS: HEPARIN SOD INJ 5000 UNIT/ML VIAL SC ×2 (09:26→21:18)
[2025-01-28] MEDS: FAMOTIDINE INJ 10 MG/ML VIAL 2 ML 20 MG IVP (09:26)
[2025-01-28] MEDS: LOSARTAN POTASSIUM 25 MG TABLET PO (09:27)
[2025-01-28] MEDS: cloNIDine HCL 0.1 MG TABLET PO ×2 (09:27→21:18)
[2025-01-28] MEDS: carVEDILOL 12.5 MG TABLET 25 MG PO ×2 (09:28→17:15)
--- NOTE | 2025-01-28 09:40 | ESPR_ITS ---
Documentation for date of: 01/28/25 Subjective Subjective Interval history: Ms. Freed is a 69-year-old female past medical history of HFrEF with a EF of 45 to 50%, CKD stage IV, hypertension, COPD, breast cancer status post unilateral mastectomy, meth abuse who came in because of shortness of breath. Patient was seen at bedside in the ED and was shivering because she was feeling cold. She is a poor historian and has been noncompliant with his medications as she states that she only takes her meds on and off. She does reveal that she has been using meth for about a week and the last time was this morning prior to admission. She has also been having episodes of diarrhea that were brown and nonbloody for about a week. She states that she has been eating well however that is questionable as she says her last meal was sometime yesterday in the afternoon and the only thing she had today was a sandwich given to her by the ED. In terms of her symptoms patient's main complaint was a shortness of breath with mild chest pressure and a mild abdominal tenderness however she denies any fevers, chills, flulike symptoms, nausea, vomiting or rashes. Patient does state that she has been having headaches which goes along with her uncontrolled blood pressure. The neurology team was consulted as patient's renal function is worse than usual.Renal ultrasound obtained on September this year showed bilateral renal parenchymal scar formation with right renal cortical thinning. Chloride was elevated at 117 without a bicarb of 16.4. BUN was 72 and creatinine was 4.4 from a baseline of 2.5. Lactic acid was normal at 1.3 however troponins were mildly elevated at 0.077 and BUN was greater than 30-80. UA had 2+ protein without leukocyte esterase and only rare bacteria. U-Tox was positive for meth 01/19/2025: Patient seen examined at bedside, resting comfortably. Patient endorses shortness of breath with mild distress, however saturating well on room air. Otherwise denies fever, chills, chest pain. Hemoglobin 11.4, chloride 115, bicarb 15 (decreased from yesterday). BUN 61, creatinine 3.8, eGFR 12, kidney function improving. Phosphorus 5.7, magnesium 1.8. On exam patient had bilateral edema and crackles in lungs. Suspect fluid overload, recommend diuretics. 01/20/2025: Patient seen and examined at bedside, resting comfortably. Patient continues to endorse shortness of breath, however improved from yesterday subjectively. Patient denies fever, chills, chest pain, nausea, vomiting. WBC 8.8, hemoglobin 11.4. Patient hypernatremic 146, asymptomatic. BUN 23, creatinine 4.0, EGFR 19. Kidney function worsening, patient has improved crackles and decreased edema, suspect overdiuresis. Recommend holding diuretics and pausing fluid restriction. 01/21/2025: Patient seen examined at bedside. Patient mildly distressed, worsening shortness of breath. Denies fever, chills, chest pain, nausea, vomiting. WBC 7.8, hemoglobin 11.3, sodium 146, chloride 110, bicarb 23.2. BUN 83, creatinine 4.0, EGFR 11. Patient had 5 L of oral intake yesterday, 1.5 L urine output. Suspect cardiorenal syndrome, recommend resuming diuretics and fluid restriction. Discussed possibility of needing dialysis with patient, if kidneys do not improve. 01/22/2025 patient currently seen in telemetry. More alert and awake. Shortness of breath much better. She put out good urine with 1 mg IV Bumex. Recommended to continue with fluid restriction and IV diuretics. Vital signs have been stable hemoglobin 12.2, sodium 147, potassium 4.3, BUN 72, creatinine 3.3, calcium 7.9, LFTs normal. Hep panel ordered. 01/23/2025: Patient seen and examined at bedside, resting comfortably. On room air. Denies SOB, chest pain. Agreeable to dialysis, although expresses some anxiety. WBC 6.8, Hg 11.8. Sodium 145, chloride 104, bicarb 28.4, BUN 77, creatinine 1.5, eGFR 13. Corrected calcium 7.9. Plan to place dialysis catheter today, will likely continue outpatient dialysis 2/week. TB test ordered, hep panel negative. 01/24/2025: Patient seen examined at bedside, resting comfortably. Patient remains on room air, denying shortness of breath, chest pain. Has dialysis catheter in place, clean and dry without erythema. WBC 7.8, hemoglobin 11.2. Sodium 144, potassium 4.5, bicarb 26.7, BUN 74, creatinine 3.8, EGFR 12. Corrected calcium 8.1. Plan for hemodialysis today, 2-hour session, with 1 L fluid removal. 01/25/2025: Patient seen today at the dialysis unit found awake, alert, oriented x 3. No overnight events reported. Vitals and labs reviewed. Patient received hemodialysis today, had about 1 L removed total dialysis hours 2 hours 30 minutes postdialysis weight 61.5 kg. Blood pressure continues to be elevated Coreg adjusted from 25 mg twice daily to 12.5, added clonidine 0.1 mg to blood pressure regimen. Patient currently pending authorization for chair time for hemodialysis sessions. Will continue to follow at this time. 01/26/2025: Patient seen and examined at bedside, alert and oriented x 3. Patient received dialysis treatment yesterday, tolerated well. Patient is currently pending authorization for chair time for hemodialysis sessions. Will continue to follow patient. 01/28/2025: Patient seen and examined at bedside. Patient received dialysis treatment on 01/27/2025 for about 3 hours 1 minute, 2 L fluid removed. Patient's tuberculin skin test is negative, patient is pending chair time outpatient for hemodialysis sessions. Will continue to follow the patient. Exam Vital Signs Temp Pulse Resp BP Pulse Ox O2 Del Method O2 Flow Rate 98.5 F 84 18 144/75 H 93 L Room Air 1 01/28/25 08:00 01/28/25 09:28 01/28/25 09:05 01/28/25 09:28 01/28/25 09:05 01/28/25 08:00 01/26/25 16:00 Narrative Exam GENERAL APPEARANCE: Patient seems to be comfortable, adequately hydrated and nourished. NECK: Neck supple, no JVD or bruit Patient had right breast implant. Right sided tunneled dialysis catheter in place. CARDIOVASCULAR: Heart regular, no murmurs LUNGS/CHEST: Crackles in lower lung shin ABDOMEN: Soft, nontender, nondistended. No masses. Normal bowel sounds. EXTREMITIES: 1+ edema in the lower extremities SKIN: Skin exam normal without any rashes MUSCULOSKELETAL: in bed-able to move her extremities NEUROLOGICAL : No neurological deficits Objective Labs 01/30/25 05:05 01/30/25 05:05 Labs: Laboratory Results - last 24 hr 01/28/25 05:08 WBC 7.5 RBC 3.39 L Hgb 10.7 L Hct 33.4 L MCV 99 MCH 31.6 MCHC 32.0 RDW Std Deviation 55.9 H Plt Count 181 Neut % (Auto) 64 Lymph % (Auto) 15 [place] % (Auto) 16 H Eos % (Auto) 4 Baso % (Auto) 1 Neut # (Auto) 4.8 Lymph # (Auto) 1.1 [place] # (Auto) 1.2 H Eos # (Auto) 0.3 Baso # (Auto) 0.0 Immature Gran # (Auto) 0.04 H Absolute Nucleated RBC 0.00 Immature Gran % 1 H Nucleated RBC % 0 Sodium 140 Potassium 4.1 D Chloride 104 Carbon Dioxide 26.5 Anion Gap 10 BUN 68 H Creatinine 3.2 H D Estim Creat Clear Calc 13.9 L eGFR 15 L BUN/Creatinine Ratio 21 H Glucose 170 H D Calculated Osmolality 303 H Calcium 8.4 Corrected Calcium 8.6 Phosphorus 4.4 Magnesium 1.8 Total Bilirubin < 0.2 L AST 24 ALT 26 Alkaline Phosphatase 150 H D Total Protein 6.1 Albumin 3.8 Globulin 2.3 Albumin/Globulin Ratio 1.7 ABG Interpretation ABG results: 01/18/25 01/18/25 09:50 13:43 VBG pH 7.11 L 7.17 L VBG pCO2 50 39 D VBG pO2 38 57 VBG Base Excess -14 L -14 L Quality Measures Quality Measures VTE prophylaxis Advance care planning discussed with:: patient Assessment & Plan Assessment Current Active Medications: Generic Name Dose Route Start Last Admin Trade Name Freq PRN Reason Stop Dose Admin Acetaminophen 650 mg 01/18/25 14:24 01/23/25 23:57 Acetaminophen 325 Mg Tablet PO 02/17/25 14:23 650 mg Q6H PRN Administration Fever >100.4 or pain 1-3 Albuterol/Ipratropium 3 ml 01/18/25 14:28 01/27/25 18:13 Albuterol/Ipratropium (Duoneb) Rt Dee 3 Ml Nebu INH 02/17/25 14:27 3 ml Q2HR PRN Administration SHORTNESS OF BREATH OR WHEEZE Bumetanide 1 mg 01/25/25 09:00 01/28/25 09:26 Bumetanide 0.5 Mg Tablet PO 02/24/25 08:59 1 mg QDAY KENNEDY Administration Carvedilol 25 mg 01/26/25 17:30 01/28/25 09:28 Carvedilol 12.5 Mg Tablet PO 02/25/25 17:29 25 mg BIDWM KENNEDY Administration Clonidine 0.1 mg 01/25/25 21:00 01/28/25 09:27 Clonidine Hcl 0.1 Mg Tablet PO 02/24/25 20:59 0.1 mg BID KENNEDY Administration Docusate Sodium 100 mg 01/18/25 14:24 Docusate Sod 100 Mg Capsule PO 02/17/25 14:23 QDAY PRN CONSTIPATION Protocol Famotidine 20 mg 01/26/25 09:00 01/28/25 09:26 Famotidine Inj 10 Mg/Ml Vial 2 Ml IVP 02/20/25 08:59 20 mg DAILY KENNEDY Administration Heparin Sodium (Porcine) 5,000 unit 01/18/25 21:00 01/28/25 09:26 Heparin Sod Inj 5000 Unit/Ml Vial SC 02/01/25 20:59 5,000 unit Q12HR KENNEDY Administration Heparin Sodium (Porcine) 3,800 unit 01/24/25 09:52 01/25/25 11:17 Heparin Sod Inj 1000 Unit/Ml Vial 10 Ml INDWELLCAT 02/07/25 09:51 3,800 unit PRN PRN Administration DIALYSIS Hydralazine HCl 100 mg 01/24/25 14:00 01/28/25 05:27 Hydralazine Hcl 25 Mg Tablet PO 02/23/25 13:59 100 mg TID KENNEDY Administration Hydralazine HCl 10 mg 01/24/25 17:04 Hydralazine Inj 20 Mg/Ml Vial IV 02/23/25 16:03 Q6H PRN SBP>160, hold if HR<60 Albumin Human 25 gm in 100 mls @ 100 mls/min 01/24/25 08:25 Albuminar-25 Ivpb IV PRN PRN DIALYSIS Losartan Potassium 25 mg 01/28/25 09:00 01/28/25 09:27 Losartan Potassium 25 Mg Tablet PO 02/27/25 08:59 25 mg QDAY KENNEDY Administration Metoclopramide HCl 5 mg 01/21/25 08:14 Metoclopramide Inj 5 Mg/Ml Vial 2 Ml IVP 02/20/25 08:14 Q6HR PRN nausea or vomiting Protocol Nifedipine 30 mg 01/24/25 22:00 01/28/25 05:28 Nifedipine Xl 30 Mg Tabcr PO 02/23/25 21:59 30 mg TID KENNEDY Administration Plan 69-year-old female past medical history of HFrEF with a EF of 45 to 50%, CKD stage IV, hypertension, COPD, breast cancer status post unilateral mastectomy, meth abuse admitted for acute hypoxic respiratory failure and SREE #SREE on CKD #History of CKD stage IV #Non anion gap metabolic acidosis #Hypernatremia, asymptomatic Patient presents scented with elevated creatinine of 4.0 from a baseline of 2.5 and a BUN of 72. Patient has been noncompliant with her medications She has not been taking her Lasix and her BNP is 3280. However clinically patient is dehydrated with dry mucous membranes, decreased capillary refill. Patient received 1 dose of Lasix in the ER. Patient's lactic acid was normal at 1.3. Chloride was 117 and bicarb was 16.4 with a VBG showing a pH of 7.17 She has a history of HFrEF with previous echo showing 45 to 50% EF. Likely underlying cardiorenal syndrome Acidosis likely from persistent GI loses Patient kidney function is improving, however bicarb levels decreased. Patient received IV fluids yesterday, appears volume overloaded today. Crackles, edema improved notably. However kidney function has worsened, patient now hypernatremic. Suspect overdiuresis, patient receiving 2 mg Bumex IV twice daily. Held morning dose of Bumex, recommend pausing diuresis and fluid restriction. Patient drinks 5 L of fluid over 24-hour period, with 1.5 L urinary output. No short of breath the following morning with little change in kidney function. Tunneled dialysis catheter in place, patient received hemodialysis yesterday. hepatitis panel negative. Tuberculin skin test negative. Plan: ? Will continue inpatient dialysis ? Fluid restriction 1.8 L daily ? Trend renal function ? Avoid nephrotoxic medications ? Control hypertension ? Strict ZAKI's - Agree with Bicitra 30 mL p.o. twice daily - Plan for patient to continue hemodialysis outpatient after discharge, twice weekly at [facility] #Hypertensive emergency #Troponinemia #HFrEF exacerbation #Meth abuse #COPD #Diarrhea ? Managed as per primary team Thank you for allowing us to be part of patient care during her time at [facility] Plan of care discussed with attending Dr. Suh. Laure Daley MD PGY?1 Attending Provider Attestation/Addendum Pt is seen and examined. Labs and investigations are reviewed. Agree witth assessment and plan by resident. agree with findings. Pawan Suh MD
--- NOTE | 2025-01-28 09:46 | XR_ITS ---
Examination: Shoulder,right, 3 views Technique: Shoulder AP internal rotation, AP external rotation, Y view shoulder, 3 views Exam date and time :January 28, 2025 0957 hours INDICATIONS: Ground-level fall one week ago with injury to the shoulder, shoulder pain. FINDINGS: No acute shoulder fracture or dislocation Severe osteoarthritis right glenohumeral joint Fracture distal clavicle which appears old but clinical correlation advised 6 mm AC joint separation not seen on May 01, 2021 IMPRESSION: 6 mm AC joint separation, not seen on May 01, 2021
[2025-01-28] MEDS: LIDOCAINE 5% 1 PATCH TOP (10:11)
--- NOTE | 2025-01-28 13:40 | PD.RESPRO ---
Documentation for date of: 01/28/25 Subjective Subjective Interval history: Patient was seen and examined at bedside this AM. No acute events overnight. Patient tolerating diet and mentation is at baseline. Undergoing inpatient hemodialysis. Blood pressure remains elevated, but has improved 170->140s SBP with HD. Cardiology recommends adding BETTY/ARB, will consider outpatient. RT shoulder XR ordered as she reports pain due to a fall prior to coming to the hospital. Pending chair time for dialysis outpatient. Exam Vital Signs Temp Pulse Resp BP Pulse Ox O2 Del Method O2 Flow Rate 96.9 F 68 27 H 159/76 H 95 Room Air 1 01/28/25 12:00 01/28/25 13:22 01/28/25 12:00 01/28/25 13:22 01/28/25 12:00 01/28/25 12:00 01/26/25 16:00 Narrative Exam Constitutional Alert, oriented x3 and comfortable. HEENT Vision grossly intact. Patent nares. Trachea midline. RT IJ vascular catheter for HD Respiratory Chest normal on inspection and clear to auscultation bilaterally. x1 Breast implant Cardiovascular S1 and S2 audible, RRR. No murmurs or carotid bruit. No gross JVD. Abdominal Soft and non tender to palpation in all quadrants. BS + Genitourinary No bladder tenderness, no flank pain. Normal to palpation. Musculoskeletal Extremities tone within normal limits. RT shoulder tenderness Neurological CN II - XII grossly intact. Extremity motor and sensation grossly intact. Skin Warm, dry and intact. No apparent lesions. Psychiatric Patient has a good affect, is cooperative. Objective Labs 01/28/25 05:08 01/28/25 05:08 Labs: Laboratory Results - last 24 hr 01/28/25 05:08 WBC 7.5 RBC 3.39 L Hgb 10.7 L Hct 33.4 L MCV 99 MCH 31.6 MCHC 32.0 RDW Std Deviation 55.9 H Plt Count 181 Neut % (Auto) 64 Lymph % (Auto) 15 [place] % (Auto) 16 H Eos % (Auto) 4 Baso % (Auto) 1 Neut # (Auto) 4.8 Lymph # (Auto) 1.1 [place] # (Auto) 1.2 H Eos # (Auto) 0.3 Baso # (Auto) 0.0 Immature Gran # (Auto) 0.04 H Absolute Nucleated RBC 0.00 Immature Gran % 1 H Nucleated RBC % 0 Sodium 140 Potassium 4.1 D Chloride 104 Carbon Dioxide 26.5 Anion Gap 10 BUN 68 H Creatinine 3.2 H D Estim Creat Clear Calc 13.9 L eGFR 15 L BUN/Creatinine Ratio 21 H Glucose 170 H D Calculated Osmolality 303 H Calcium 8.4 Corrected Calcium 8.6 Phosphorus 4.4 Magnesium 1.8 Total Bilirubin < 0.2 L AST 24 ALT 26 Alkaline Phosphatase 150 H D Total Protein 6.1 Albumin 3.8 Globulin 2.3 Albumin/Globulin Ratio 1.7 ABG Interpretation ABG results: 01/18/25 01/18/25 09:50 13:43 VBG pH 7.11 L 7.17 L VBG pCO2 50 39 D VBG pO2 38 57 VBG Base Excess -14 L -14 L Quality Measures Quality Measures VTE prophylaxis Advance care planning discussed with:: patient Assessment & Plan Assessment Current Active Medications: Generic Name Dose Route Start Last Admin Trade Name Freq PRN Reason Stop Dose Admin Acetaminophen 650 mg 01/18/25 14:24 01/23/25 23:57 Acetaminophen 325 Mg Tablet PO 02/17/25 14:23 650 mg Q6H PRN Administration Fever >100.4 or pain 1-3 Albuterol/Ipratropium 3 ml 01/18/25 14:28 01/27/25 18:13 Albuterol/Ipratropium (Duoneb) Rt Dee 3 Ml Nebu INH 02/17/25 14:27 3 ml Q2HR PRN Administration SHORTNESS OF BREATH OR WHEEZE Bumetanide 1 mg 01/25/25 09:00 01/28/25 09:26 Bumetanide 0.5 Mg Tablet PO 02/24/25 08:59 1 mg QDAY KENNEDY Administration Carvedilol 25 mg 01/26/25 17:30 01/28/25 09:28 Carvedilol 12.5 Mg Tablet PO 02/25/25 17:29 25 mg BIDWM KENNEDY Administration Clonidine 0.1 mg 01/25/25 21:00 01/28/25 09:27 Clonidine Hcl 0.1 Mg Tablet PO 02/24/25 20:59 0.1 mg BID KENNEDY Administration Docusate Sodium 100 mg 01/18/25 14:24 Docusate Sod 100 Mg Capsule PO 02/17/25 14:23 QDAY PRN CONSTIPATION Protocol Famotidine 20 mg 01/26/25 09:00 01/28/25 09:26 Famotidine Inj 10 Mg/Ml Vial 2 Ml IVP 02/20/25 08:59 20 mg DAILY KENNEDY Administration Heparin Sodium (Porcine) 5,000 unit 01/18/25 21:00 01/28/25 09:26 Heparin Sod Inj 5000 Unit/Ml Vial SC 02/01/25 20:59 5,000 unit Q12HR KENNEDY Administration Heparin Sodium (Porcine) 3,800 unit 01/24/25 09:52 01/25/25 11:17 Heparin Sod Inj 1000 Unit/Ml Vial 10 Ml INDWELLCAT 02/07/25 09:51 3,800 unit PRN PRN Administration DIALYSIS Hydralazine HCl 100 mg 01/24/25 14:00 01/28/25 13:22 Hydralazine Hcl 25 Mg Tablet PO 02/23/25 13:59 100 mg TID KENNEDY Administration Hydralazine HCl 10 mg 01/24/25 17:04 Hydralazine Inj 20 Mg/Ml Vial IV 02/23/25 16:03 Q6H PRN SBP>160, hold if HR<60 Albumin Human 25 gm in 100 mls @ 100 mls/min 01/24/25 08:25 Albuminar-25 Ivpb IV PRN PRN DIALYSIS Lidocaine 1 patch 01/28/25 09:46 01/28/25 10:11 Lidocaine 5% 1 Patch TOP 02/27/25 09:45 1 patch UD PRN Administration RT shoulder/vasc cath pain Protocol Metoclopramide HCl 5 mg 01/21/25 08:14 Metoclopramide Inj 5 Mg/Ml Vial 2 Ml IVP 02/20/25 08:14 Q6HR PRN nausea or vomiting Protocol Nifedipine 30 mg 01/24/25 22:00 01/28/25 13:21 Nifedipine Xl 30 Mg Tabcr PO 02/23/25 21:59 30 mg TID KENNEDY Administration Plan Ms Freed is a 69 y/o F with PMHx significant for hypertension, CKD, breast cancer s/p resection, COPD, CHF presents with chief complaint of shortness of breath, negative for metabolic acidosis with SREE on CKD. ESRD on HD Cardiorenal syndrome - Differential for SREE includes cardiorenal syndrome, hypertensive emergency, and dehydration secondary to diarrhea. - CKD Stage IV -> Stage V during hospitalization - Creatinine improving but GFR remains <15 Plan: - Avoid nephrotoxins - Renally dose medication - HD as scheduled - Nephrology following, appreciate recommendations Hypertensive urgency-resolved Resistant HTN - Uncertain etiology at this point; differentials include cardiorenal syndrome secondary to HFmEF, worsening CKD, prerenal azotemia from diarrhea - acidosis as stated : Bicarb 16.4, chloride 117, lactic acid 0.3, VBG showed pH 7.17, pCO2 39. Patient reports 5-day history of diarrhea, potential source. - BNP greater than 3000. - Patient appears dry on exam, dry mucous membranes, no edema, no crackles in lung. - Kidney functions improving with repeat renal panel showing improvement in creatinine Plan: - Cardiology and nephrology consulted - Bumex 1 mg PO daily - Coreg to 25 mg p.o. twice daily - Clonidine 0.1mg BID - Nifedipine 30mg TID - Hydralazine 100mg TID - Patient will need to f/u outpatient and will be transitioned to ARB in place of Clonidine Acute decompensated heart failure HF mEF 45-50% Elevated troponins, likely Type II - On presentation patient came in with shortness of breath associated with paroxysmal nocturnal dyspnea, orthopnea and mild lower extremity edema. - Patient does have history of smoking THC and methamphetamine use. - On admission patient had bilateral crackles however mucous membranes were dry and pitting edema was trace. - Echo from 10/2024 shows: Normal LV size and wall thickness mild global hypokinesis. EF 45-50%. Normal RV size and function. Estimated RVSP 45 mm Hg. Severe biatrial dilatation. Mild MAC. with Mild to moderate MR. Moderate TR. Mild PI. IVC dilated. - Chest x-ray showed some vascular congestion - BNP of over 3000 with mildly elevated troponins Plan: -Continue Bumex 1 mg PO daily -Fluid restriction 1800cc -Strict ins and outs -Daily weights -Keep K >4, Mg >2 -Cardiology consulted, appreciate recommendations COPD Patient has history as stated. Patient does not take any of her meds. On presentation, patient BNP greater than 3000, however appears clinically dry on exam. Patient complains of shortness of breath, but is not appear to be having COPD exacerbation, no wheezing on exam, no increased cough or sputum production. Polysubstance abuse Patient has history of polysubstance abuse, including methamphetamine, alcohol, marijuana. Patient denies alcohol use, but admits to meth and marijuana. U tox positive for meth. Plan: -Monitor for signs of withdrawal -[employer] T[employer] patient regarding resources for addiction Acute diarrhea-resolved stool studies negative, pending [facility] Management: Dispo: tele, pending chair time auth DVT prophylaxis: Heparin GI prophylaxis: None Diet: Cardiac, renal, fluid restrict 2000cc Lines: Peripheral IV, HD catheter Code status: Full code Plan of care discussed with attending Ayush Bacon M.D. PGY2 Disclaimer: Minor errors in product support specialist may be present as this note was dictated using voice recognition software. Attending Provider Attestation/Addendum Alisia Wylie DO, attest that I was physically present for the rubin portions of the service and evaluated the patient with the resident and I reviewed and discussed the case with the resident and agree with the resident's findings and plans of care as documented above Patient seen eval this a.m. She continues to complain of shoulder pain. However, she has full range of motion of her right shoulder. X-ray of the shoulder shows AC joint separation. Continue with conservative management. Pending authorization for dialysis chair time. Patient is otherwise stable for discharge home once that is arranged. Will downgrade patient to med/surge. Blood pressure is better controlled today. Continue current management
[2025-01-28] MEDS: ALBUTEROL INH 8 GM 2 PUFF INH (19:32)
[2025-01-29] VITALS (18 sets, daily range): BP systolic 105–165; BP diastolic 60–89; PULSE 64–83; RESP 16–28; TEMP 36.2–37.1; O2SAT 92–98
[2025-01-29] MEDS: ACETAMINOPHEN 325 MG TABLET 650 MG PO (05:04)
[2025-01-29] MEDS: NIFEdipine XL 30 MG TABCR PO ×3 (05:05→23:17)
[2025-01-29] MEDS: hydrALAZINE HCL 25 MG TABLET 100 MG PO ×3 (05:05→23:16)
[2025-01-29 05:37] LABS: Basophils % (Auto) 0 % (0-2.5); Eosinophils # (Auto) 0.3 Thou/mm3 (0.0-0.5); Eosinophils % (Auto) 4 % (0-10); Hematocrit 30.3 % (36.0-46.0); Hemoglobin 10.1 g/dL (12.0-16.0); Immature Granulocytes % (Auto) 1 % (0-0); Immature Granulocytes Auto 0.05 Thou/mm3 (0.00-0.00); Lymphocytes # (Auto) 1.2 Thou/mm3 (1.0-4.8); Lymphocytes % (Auto) 16 % (10-50); Mean Corpuscular HGB Conc 33.3 g/dl (31.0-37.0); Mean Corpuscular Hemoglobin 32.1 pg (25.0-35.0); Mean Corpuscular Volume 96 fL (80-100); Monocytes # (Auto) 1.1 Thou/mm3 (0.0-0.8); Monocytes % (Auto) 15 % (0-12); Neutrophils # (Auto) 4.9 Thou/mm3 (1.8-7.7); Neutrophils % (Auto) 65 % (37-80); Nucleated Red Blood Cell % 0 /100 WBC (0); Platelet Count 177 Thou/mm3 (140-440); RDW Standard Deviation 55.2 fL (36.4-46.3); Red Blood Count 3.15 Miln/mm3 (4.00-5.20); White Blood Count 7.6 Thou/mm3 (3.6-11.0)
[2025-01-29 05:59] LABS: Alanine Aminotransferase 42 U/L (10-49); Albumin, Serum 3.7 gm/dL (3.4-4.8); Albumin/Globulin Ratio 1.6 (1.2-2.2); Alkaline Phosphatase 165 U/L (46-116); Anion Gap 9 (7-16); Aspartate Amino Transferase 41 U/L (0-34); BUN/Creatinine Ratio 26 Ratio (12-20); Bilirubin,Total < 0.2 mg/dL (0.3-1.2); Blood Urea Nitrogen 88 mg/dL (9-23); Calcium 8.3 mg/dL (8.3-10.6); Calcium (Corrected) 8.5 mg/dL (8.5-10.1); Carbon Dioxide 22.9 mMol/L (20.0-31.0); Chloride 107 mMol/L (98-107); Creatinine (Component) 3.4 mg/dL (0.6-1.3); Estimated Creatinine Clearance 13.1 mL/min (>60); Globulin 2.3 gm/dL (2.3-3.5); Glucose 100 mg/dL (74-106); Magnesium 1.8 mg/dL (1.6-2.6); Osmolality,Calculated 304 (275-295); Phosphorous 5.8 mg/dL (2.4-5.1); Sodium 139 mMol/L (136-145); eGFR 14 See Note
[2025-01-29] MEDS: BUMETANIDE 0.5 MG TABLET 1 MG PO (10:11)
[2025-01-29] MEDS: carVEDILOL 12.5 MG TABLET 25 MG PO ×2 (10:11→17:07)
[2025-01-29] MEDS: FAMOTIDINE INJ 10 MG/ML VIAL 2 ML 20 MG IVP (10:12)
[2025-01-29] MEDS: ALBUTEROL INH 8 GM 2 PUFF INH ×2 (10:15→15:11)
[2025-01-29] MEDS: cloNIDine HCL 0.1 MG TABLET PO ×2 (10:17→23:17)
[2025-01-29] MEDS: HEPARIN SOD INJ 5000 UNIT/ML VIAL SC ×2 (10:23→23:10)
--- NOTE | 2025-01-29 11:41 | ESPR_ITS ---
Documentation for date of: 01/29/25 Subjective Subjective Interval history: Ms. Freed is a 69-year-old female past medical history of HFrEF with a EF of 45 to 50%, CKD stage IV, hypertension, COPD, breast cancer status post unilateral mastectomy, meth abuse who came in because of shortness of breath. Patient was seen at bedside in the ED and was shivering because she was feeling cold. She is a poor historian and has been noncompliant with his medications as she states that she only takes her meds on and off. She does reveal that she has been using meth for about a week and the last time was this morning prior to admission. She has also been having episodes of diarrhea that were brown and nonbloody for about a week. She states that she has been eating well however that is questionable as she says her last meal was sometime yesterday in the afternoon and the only thing she had today was a sandwich given to her by the ED. In terms of her symptoms patient's main complaint was a shortness of breath with mild chest pressure and a mild abdominal tenderness however she denies any fevers, chills, flulike symptoms, nausea, vomiting or rashes. Patient does state that she has been having headaches which goes along with her uncontrolled blood pressure. The neurology team was consulted as patient's renal function is worse than usual.Renal ultrasound obtained on September this year showed bilateral renal parenchymal scar formation with right renal cortical thinning. Chloride was elevated at 117 without a bicarb of 16.4. BUN was 72 and creatinine was 4.4 from a baseline of 2.5. Lactic acid was normal at 1.3 however troponins were mildly elevated at 0.077 and BUN was greater than 30-80. UA had 2+ protein without leukocyte esterase and only rare bacteria. U-Tox was positive for meth 01/25/2025: Patient seen today at the dialysis unit found awake, alert, oriented x 3. No overnight events reported. Vitals and labs reviewed. Patient received hemodialysis today, had about 1 L removed total dialysis hours 2 hours 30 minutes postdialysis weight 61.5 kg. Blood pressure continues to be elevated Coreg adjusted from 25 mg twice daily to 12.5, added clonidine 0.1 mg to blood pressure regimen. Patient currently pending authorization for chair time for hemodialysis sessions. Will continue to follow at this time. 01/26/2025: Patient seen and examined at bedside, alert and oriented x 3. Patient received dialysis treatment yesterday, tolerated well. Patient is currently pending authorization for chair time for hemodialysis sessions. Will continue to follow patient. 01/28/2025: Patient seen and examined at bedside. Patient received dialysis treatment on 01/27/2025 for about 3 hours 1 minute, 2 L fluid removed. Patient's tuberculin skin test is negative, patient is pending chair time outpatient for hemodialysis sessions. Will continue to follow the patient. 01/29/2025: Patient seen and examined at bedside, resting comfortably. Pending outpatient dialysis placement due to insurance issues. Recommended patient attempt to sit in chair at least twice daily anticipation of discharge. Exam Vital Signs Temp Pulse Resp BP Pulse Ox O2 Del Method O2 Flow Rate 97.5 F 70 20 143/89 H 94 L Room Air 2 01/29/25 07:49 01/29/25 10:17 01/29/25 09:51 01/29/25 10:17 01/29/25 09:51 01/29/25 07:49 01/29/25 00:00 Narrative Exam GENERAL APPEARANCE: Patient seems to be comfortable, adequately hydrated and nourished. NECK: Neck supple, no JVD or bruit Patient had right breast implant. Right sided tunneled dialysis catheter in place. CARDIOVASCULAR: Heart regular, no murmurs LUNGS/CHEST: Mild expiratory wheezing ABDOMEN: Soft, nontender, nondistended. No masses. Normal bowel sounds. EXTREMITIES: 1+ edema in the lower extremities SKIN: Skin exam normal without any rashes MUSCULOSKELETAL: in bed-able to move her extremities NEUROLOGICAL : No neurological deficits Objective Labs 01/29/25 05:12 01/29/25 05:12 Labs: Laboratory Results - last 24 hr 01/29/25 05:12 WBC 7.6 RBC 3.15 L Hgb 10.1 L Hct 30.3 L MCV 96 MCH 32.1 MCHC 33.3 RDW Std Deviation 55.2 H Plt Count 177 Neut % (Auto) 65 Lymph % (Auto) 16 [place] % (Auto) 15 H Eos % (Auto) 4 Baso % (Auto) 0 Neut # (Auto) 4.9 Lymph # (Auto) 1.2 [place] # (Auto) 1.1 H Eos # (Auto) 0.3 Baso # (Auto) 0.0 Immature Gran # (Auto) 0.05 H Absolute Nucleated RBC 0.00 Immature Gran % 1 H Nucleated RBC % 0 Sodium 139 Potassium 5.0 D Chloride 107 Carbon Dioxide 22.9 Anion Gap 9 BUN 88 H Creatinine 3.4 H Estim Creat Clear Calc 13.1 L eGFR 14 L* BUN/Creatinine Ratio 26 H Glucose 100 D Calculated Osmolality 304 H Calcium 8.3 Corrected Calcium 8.5 Phosphorus 5.8 H Magnesium 1.8 Total Bilirubin < 0.2 L AST 41 H ALT 42 Alkaline Phosphatase 165 H Total Protein 6.0 Albumin 3.7 Globulin 2.3 Albumin/Globulin Ratio 1.6 ABG Interpretation ABG results: 01/18/25 01/18/25 09:50 13:43 VBG pH 7.11 L 7.17 L VBG pCO2 50 39 D VBG pO2 38 57 VBG Base Excess -14 L -14 L Quality Measures Quality Measures VTE prophylaxis Advance care planning discussed with:: patient Assessment & Plan Assessment Current Active Medications: Generic Name Dose Route Start Last Admin Trade Name Freq PRN Reason Stop Dose Admin Acetaminophen 650 mg 01/18/25 14:24 01/29/25 05:04 Acetaminophen 325 Mg Tablet PO 02/17/25 14:23 650 mg Q6H PRN Administration Fever >100.4 or pain 1-3 Albuterol 2 puff 01/28/25 17:34 01/29/25 10:15 Albuterol Inh 8 Gm INH 02/27/25 17:33 2 puff Q1H PRN Administration SHORTNESS OF BREATH OR WHEEZE Bumetanide 1 mg 01/25/25 09:00 01/29/25 10:11 Bumetanide 0.5 Mg Tablet PO 02/24/25 08:59 1 mg QDAY KENNEDY Administration Carvedilol 25 mg 01/26/25 17:30 01/29/25 10:11 Carvedilol 12.5 Mg Tablet PO 02/25/25 17:29 25 mg BIDWM KENNEDY Administration Clonidine 0.1 mg 01/25/25 21:00 01/29/25 10:17 Clonidine Hcl 0.1 Mg Tablet PO 02/24/25 20:59 0.1 mg BID KENNEDY Administration Docusate Sodium 100 mg 01/18/25 14:24 Docusate Sod 100 Mg Capsule PO 02/17/25 14:23 QDAY PRN CONSTIPATION Protocol Famotidine 20 mg 01/26/25 09:00 01/29/25 10:12 Famotidine Inj 10 Mg/Ml Vial 2 Ml IVP 02/20/25 08:59 20 mg DAILY KENNEDY Administration Heparin Sodium (Porcine) 5,000 unit 01/18/25 21:00 01/29/25 10:23 Heparin Sod Inj 5000 Unit/Ml Vial SC 02/01/25 20:59 5,000 unit Q12HR KENNEDY Administration Heparin Sodium (Porcine) 3,800 unit 01/24/25 09:52 01/25/25 11:17 Heparin Sod Inj 1000 Unit/Ml Vial 10 Ml INDWELLCAT 02/07/25 09:51 3,800 unit PRN PRN Administration DIALYSIS Hydralazine HCl 100 mg 01/24/25 14:00 01/29/25 05:05 Hydralazine Hcl 25 Mg Tablet PO 02/23/25 13:59 100 mg TID KENNEDY Administration Hydralazine HCl 10 mg 01/24/25 17:04 Hydralazine Inj 20 Mg/Ml Vial IV 02/23/25 16:03 Q6H PRN SBP>160, hold if HR<60 Albumin Human 25 gm in 100 mls @ 100 mls/min 01/24/25 08:25 Albuminar-25 Ivpb IV PRN PRN DIALYSIS Metoclopramide HCl 5 mg 01/21/25 08:14 Metoclopramide Inj 5 Mg/Ml Vial 2 Ml IVP 02/20/25 08:14 Q6HR PRN nausea or vomiting Protocol Nifedipine 30 mg 01/24/25 22:00 01/29/25 05:05 Nifedipine Xl 30 Mg Tabcr PO 02/23/25 21:59 30 mg TID KENNEDY Administration Plan 69-year-old female past medical history of HFrEF with a EF of 45 to 50%, CKD stage IV, hypertension, COPD, breast cancer status post unilateral mastectomy, meth abuse admitted for acute hypoxic respiratory failure and SREE #SREE on CKD #History of CKD stage IV #Non anion gap metabolic acidosis #Hypernatremia, asymptomatic Patient presents scented with elevated creatinine of 4.0 from a baseline of 2.5 and a BUN of 72. Patient has been noncompliant with her medications She has not been taking her Lasix and her BNP is 3280. However clinically patient is dehydrated with dry mucous membranes, decreased capillary refill. Patient received 1 dose of Lasix in the ER. Patient's lactic acid was normal at 1.3. Chloride was 117 and bicarb was 16.4 with a VBG showing a pH of 7.17 She has a history of HFrEF with previous echo showing 45 to 50% EF. Likely underlying cardiorenal syndrome Acidosis likely from persistent GI loses Patient kidney function is improving, however bicarb levels decreased. Patient received IV fluids yesterday, appears volume overloaded today. Crackles, edema improved notably. However kidney function has worsened, patient now hypernatremic. Suspect overdiuresis, patient receiving 2 mg Bumex IV twice daily. Held morning dose of Bumex, recommend pausing diuresis and fluid restriction. Patient drinks 5 L of fluid over 24-hour period, with 1.5 L urinary output. No short of breath the following morning with little change in kidney function. Tunneled dialysis catheter in place, patient received hemodialysis 01/27/2025. Hepatitis panel negative. Tuberculin skin test negative. ? Will continue inpatient dialysis ? Fluid restriction 1.8 L daily ? Trend renal function ? Avoid nephrotoxic medications ? Control hypertension ? Strict ZAKI's - Plan for patient to continue hemodialysis outpatient after discharge, twice weekly at [facility] #Hypertensive emergency #Troponinemia #HFrEF exacerbation #Meth abuse #COPD #Diarrhea ? Managed as per primary team Thank you for allowing us to be part of patient care during her time at [facility] Plan of care discussed with attending Dr. Pulido. Reji Mac MD PGY?1 Attending Provider Attestation/Addendum Patient currently seen and examined with resident physician Dr. Mac. Note reviewed, agree with findings and recommendations. Patient currently seen in medical floor. Resting comfortably. Outpatient dialysis arrangements pending
[2025-01-29] MEDS: LIDOCAINE 5% 1 PATCH TOP (12:08)
--- NOTE | 2025-01-29 12:24 | PD.RESPRO ---
Documentation for date of: 01/29/25 Subjective Subjective Interval history: 01/29/2025: No acute overnight events to report. Patient seen and examined in hospital bed reports improvement in presenting symptoms; however, continues to have some wheezing episodes. Patient's breathing treatments are as needed and encouraged her to seek breathing treatments with nurse. At this time, social organization professor is in the process of getting insurance authorization for SNF placement. Will continue to monitor the patient for any acute changes. Patient has hemodialysis scheduled on 01/30; last session was 01/27. Exam Vital Signs Temp Pulse Resp BP Pulse Ox O2 Del Method O2 Flow Rate 98.2 F 71 16 151/76 H 94 L Room Air 2 01/29/25 11:53 01/29/25 11:53 01/29/25 11:53 01/29/25 11:53 01/29/25 11:53 01/29/25 11:53 01/29/25 00:00 Narrative Exam Physical Exam: GENERAL APPEARANCE: Awake, answering questions appropriately, appears stated age NECK: Neck supple, no JVD or bruit Patient had right breast implant. Right sided tunneled dialysis catheter in place. CARDIOVASCULAR: Heart regular, no murmurs LUNGS/CHEST: Mild expiratory wheezing ABDOMEN: Soft, nontender, nondistended. No masses. Normal bowel sounds. EXTREMITIES: No edema noted on bilateral lower extremities SKIN: Skin exam normal without any rashes MUSCULOSKELETAL: in bed-able to move her extremities NEUROLOGICAL : No neurological deficits Objective Labs 01/30/25 05:05 01/30/25 05:05 Labs: Laboratory Results - last 24 hr 01/29/25 05:12 WBC 7.6 RBC 3.15 L Hgb 10.1 L Hct 30.3 L MCV 96 MCH 32.1 MCHC 33.3 RDW Std Deviation 55.2 H Plt Count 177 Neut % (Auto) 65 Lymph % (Auto) 16 [place] % (Auto) 15 H Eos % (Auto) 4 Baso % (Auto) 0 Neut # (Auto) 4.9 Lymph # (Auto) 1.2 [place] # (Auto) 1.1 H Eos # (Auto) 0.3 Baso # (Auto) 0.0 Immature Gran # (Auto) 0.05 H Absolute Nucleated RBC 0.00 Immature Gran % 1 H Nucleated RBC % 0 Sodium 139 Potassium 5.0 D Chloride 107 Carbon Dioxide 22.9 Anion Gap 9 BUN 88 H Creatinine 3.4 H Estim Creat Clear Calc 13.1 L eGFR 14 L* BUN/Creatinine Ratio 26 H Glucose 100 D Calculated Osmolality 304 H Calcium 8.3 Corrected Calcium 8.5 Phosphorus 5.8 H Magnesium 1.8 Total Bilirubin < 0.2 L AST 41 H ALT 42 Alkaline Phosphatase 165 H Total Protein 6.0 Albumin 3.7 Globulin 2.3 Albumin/Globulin Ratio 1.6 ABG Interpretation ABG results: 01/18/25 01/18/25 09:50 13:43 VBG pH 7.11 L 7.17 L VBG pCO2 50 39 D VBG pO2 38 57 VBG Base Excess -14 L -14 L Quality Measures Quality Measures VTE prophylaxis Advance care planning discussed with:: patient Assessment & Plan Assessment Current Active Medications: Generic Name Dose Route Start Last Admin Trade Name Freq PRN Reason Stop Dose Admin Acetaminophen 650 mg 01/18/25 14:24 01/29/25 05:04 Acetaminophen 325 Mg Tablet PO 02/17/25 14:23 650 mg Q6H PRN Administration Fever >100.4 or pain 1-3 Albuterol 2 puff 01/28/25 17:34 01/29/25 10:15 Albuterol Inh 8 Gm INH 02/27/25 17:33 2 puff Q1H PRN Administration SHORTNESS OF BREATH OR WHEEZE Bumetanide 1 mg 01/25/25 09:00 01/29/25 10:11 Bumetanide 0.5 Mg Tablet PO 02/24/25 08:59 1 mg QDAY KENNEDY Administration Carvedilol 25 mg 01/26/25 17:30 01/29/25 10:11 Carvedilol 12.5 Mg Tablet PO 02/25/25 17:29 25 mg BIDWM KENNEDY Administration Clonidine 0.1 mg 01/25/25 21:00 01/29/25 10:17 Clonidine Hcl 0.1 Mg Tablet PO 02/24/25 20:59 0.1 mg BID KENNEDY Administration Docusate Sodium 100 mg 01/18/25 14:24 Docusate Sod 100 Mg Capsule PO 02/17/25 14:23 QDAY PRN CONSTIPATION Protocol Famotidine 20 mg 01/26/25 09:00 01/29/25 10:12 Famotidine Inj 10 Mg/Ml Vial 2 Ml IVP 02/20/25 08:59 20 mg DAILY KENNEDY Administration Heparin Sodium (Porcine) 5,000 unit 01/18/25 21:00 01/29/25 10:23 Heparin Sod Inj 5000 Unit/Ml Vial SC 02/01/25 20:59 5,000 unit Q12HR KENNEDY Administration Heparin Sodium (Porcine) 3,800 unit 01/24/25 09:52 01/25/25 11:17 Heparin Sod Inj 1000 Unit/Ml Vial 10 Ml INDWELLCAT 02/07/25 09:51 3,800 unit PRN PRN Administration DIALYSIS Hydralazine HCl 100 mg 01/24/25 14:00 01/29/25 05:05 Hydralazine Hcl 25 Mg Tablet PO 02/23/25 13:59 100 mg TID KENNEDY Administration Hydralazine HCl 10 mg 01/24/25 17:04 Hydralazine Inj 20 Mg/Ml Vial IV 02/23/25 16:03 Q6H PRN SBP>160, hold if HR<60 Albumin Human 25 gm in 100 mls @ 100 mls/min 01/24/25 08:25 Albuminar-25 Ivpb IV PRN PRN DIALYSIS Metoclopramide HCl 5 mg 01/21/25 08:14 Metoclopramide Inj 5 Mg/Ml Vial 2 Ml IVP 02/20/25 08:14 Q6HR PRN nausea or vomiting Protocol Nifedipine 30 mg 01/24/25 22:00 01/29/25 05:05 Nifedipine Xl 30 Mg Tabcr PO 02/23/25 21:59 30 mg TID KENNEDY Administration Plan 69 year old F with past medical history significant for hypertension, CKD, breast cancer s/p resection, COPD, CHF presents with chief complaint of shortness of breath, negative for metabolic acidosis with SREE on CKD. #ESRD on HD #Cardiorenal syndrome Differential for SREE includes cardiorenal syndrome, hypertensive emergency, and dehydration secondary to diarrhea. CKD Stage IV -> Stage V during hospitalization Creatinine improving but GFR remains <15 Plan: Avoid nephrotoxins Renally dose medication HD as scheduled Nephrology following, appreciate recommendations #Hypertensive urgency-resolved #Resistant HTN Uncertain etiology at this point; differentials include cardiorenal syndrome secondary to HFmEF, worsening CKD, prerenal azotemia from diarrhea Lactic acidosis as stated : Bicarb 16.4, chloride 117, lactic acid 0.3, VBG showed pH 7.17, pCO2 39. Patient reports 5-day history of diarrhea, potential source. BNP greater than 3000. Patient appears dry on exam, dry mucous membranes, no edema, no crackles in lung. Kidney functions improving with repeat renal panel showing improvement in creatinine Plan: Cardiology and nephrology consulted Bumex 2 mg PO daily Coreg to 25 mg p.o. twice daily Clonidine 0.1mg BID Nifedipine 30mg TID Hydralazine 100mg TID Patient will need to f/u outpatient and will be transitioned to ARB in place of Clonidine #Acute decompensated heart failure #HFmEF 45-50% #Elevated troponins, likely Type II On presentation patient came in with shortness of breath associated with paroxysmal nocturnal dyspnea, orthopnea and mild lower extremity edema. Patient does have history of smoking THC and methamphetamine use. On admission patient had bilateral crackles however mucous membranes were dry and pitting edema was trace. Echo from 10/2024 shows: Normal LV size and wall thickness mild global hypokinesis. EF 45-50%. Normal RV size and function. Estimated RVSP 45 mm Hg. Severe biatrial dilatation. Mild MAC. with Mild to moderate MR. Moderate TR. Mild PI. IVC dilated. Chest x-ray showed some vascular congestion BNP of over 3000 with mildly elevated troponins Plan: Continue Bumex 2 mg PO daily Fluid restriction 1800cc Strict ins and outs Daily weights Keep K >4, Mg >2 Cardiology consulted, appreciate recommendations #COPD Patient has history as stated. Patient does not take any of her meds. On presentation, patient BNP greater than 3000, however appears clinically dry on exam. Patient complains of shortness of breath, but is not appear to be having COPD exacerbation, no wheezing on exam, no increased cough or sputum production. #Right shoulder, AC separation Patient reporting some right shoulder pain Shoulder x-ray shows 6 mm AC joint separation Plan: Outpatient physical therapy #Polysubstance abuse Patient has history of polysubstance abuse, including methamphetamine, alcohol, marijuana. Patient denies alcohol use, but admits to meth and marijuana. U tox positive for meth. Plan: Monitor for signs of withdrawal Placement Secretary patient regarding resources for addiction #Acute diarrhea-resolved stool studies and H. pylori negative Hospital Management: Dispo: tele, pending chair time auth DVT prophylaxis: Heparin GI prophylaxis: None Diet: Cardiac, renal, fluid restrict 2000cc Lines: Peripheral IV, HD catheter Code status: Full code Patient seen and examined with attending Dr. Carol Ann Mcginnis, PGY-1 Attending Provider Attestation/Addendum I, Alisia Maharaj, , attest that I was physically present for the rubin portions of the service and evaluated the patient with the resident and I reviewed and discussed the case with the resident and agree with the resident's findings and plans of care as documented above Patient seen eval this a.m. No acute events overnight. Will continue with current management and pending dialysis chair/insurance authorization at this time. Patient has no active complaints.
--- NOTE | 2025-01-29 19:44 | PC.NURSE ---
re med rec- Advised life partner Jonh Mckay at bedside, tel# [phone] to bring home med bottles in a.m., verbalized understanding.
[2025-01-30] VITALS (25 sets, daily range): BP systolic 123–180; BP diastolic 60–84; PULSE 54–84; RESP 16–20; TEMP 36.1–37.1; O2SAT 93–98
[2025-01-30] MEDS: ALBUTEROL INH 8 GM 2 PUFF INH (02:53)
[2025-01-30] MEDS: NIFEdipine XL 30 MG TABCR PO ×3 (05:32→20:32)
[2025-01-30] MEDS: hydrALAZINE HCL 25 MG TABLET 100 MG PO ×3 (05:33→20:32)
[2025-01-30 06:07] LABS: Basophils % (Auto) 0 % (0-2.5); Eosinophils # (Auto) 0.2 Thou/mm3 (0.0-0.5); Eosinophils % (Auto) 3 % (0-10); Hematocrit 30.9 % (36.0-46.0); Hemoglobin 9.9 g/dL (12.0-16.0); Immature Granulocytes % (Auto) 1 % (0-0); Immature Granulocytes Auto 0.04 Thou/mm3 (0.00-0.00); Lymphocytes # (Auto) 1.4 Thou/mm3 (1.0-4.8); Lymphocytes % (Auto) 21 % (10-50); Mean Corpuscular Hemoglobin 31.9 pg (25.0-35.0); Mean Corpuscular Volume 100 fL (80-100); Monocytes # (Auto) 0.9 Thou/mm3 (0.0-0.8); Monocytes % (Auto) 13 % (0-12); Neutrophils # (Auto) 4.1 Thou/mm3 (1.8-7.7); Neutrophils % (Auto) 62 % (37-80); Nucleated Red Blood Cell % 0 /100 WBC (0); Platelet Count 192 Thou/mm3 (140-440); RDW Standard Deviation 56.1 fL (36.4-46.3); White Blood Count 6.6 Thou/mm3 (3.6-11.0)
[2025-01-30 06:41] LABS: Alanine Aminotransferase 35 U/L (10-49); Albumin, Serum 3.6 gm/dL (3.4-4.8); Albumin/Globulin Ratio 1.6 (1.2-2.2); Alkaline Phosphatase 135 U/L (46-116); Anion Gap 10 (7-16); Aspartate Amino Transferase 30 U/L (0-34); BUN/Creatinine Ratio 29 Ratio (12-20); Bilirubin,Total < 0.2 mg/dL (0.3-1.2); Blood Urea Nitrogen 98 mg/dL (9-23); Calcium 8.2 mg/dL (8.3-10.6); Calcium (Corrected) 8.5 mg/dL (8.5-10.1); Carbon Dioxide 21.8 mMol/L (20.0-31.0); Chloride 108 mMol/L (98-107); Creatinine (Component) 3.4 mg/dL (0.6-1.3); Estimated Creatinine Clearance 13.1 mL/min (>60); Globulin 2.3 gm/dL (2.3-3.5); Glucose 124 mg/dL (74-106); Osmolality,Calculated 310 (275-295); Potassium 4.8 mMol/L (3.4-5.1); Sodium 140 mMol/L (136-145); Total Protein 5.9 gm/dL (5.7-8.2); eGFR 14 See Note
--- NOTE | 2025-01-30 08:48 | ESPR_ITS ---
Documentation for date of: 01/30/25 Subjective Subjective Interval history: Ms. Freed is a 69-year-old female past medical history of HFrEF with a EF of 45 to 50%, CKD stage IV, hypertension, COPD, breast cancer status post unilateral mastectomy, meth abuse who came in because of shortness of breath. Patient was seen at bedside in the ED and was shivering because she was feeling cold. She is a poor historian and has been noncompliant with his medications as she states that she only takes her meds on and off. She does reveal that she has been using meth for about a week and the last time was this morning prior to admission. She has also been having episodes of diarrhea that were brown and nonbloody for about a week. She states that she has been eating well however that is questionable as she says her last meal was sometime yesterday in the afternoon and the only thing she had today was a sandwich given to her by the ED. In terms of her symptoms patient's main complaint was a shortness of breath with mild chest pressure and a mild abdominal tenderness however she denies any fevers, chills, flulike symptoms, nausea, vomiting or rashes. Patient does state that she has been having headaches which goes along with her uncontrolled blood pressure. The neurology team was consulted as patient's renal function is worse than usual.Renal ultrasound obtained on September this year showed bilateral renal parenchymal scar formation with right renal cortical thinning. Chloride was elevated at 117 without a bicarb of 16.4. BUN was 72 and creatinine was 4.4 from a baseline of 2.5. Lactic acid was normal at 1.3 however troponins were mildly elevated at 0.077 and BUN was greater than 30-80. UA had 2+ protein without leukocyte esterase and only rare bacteria. U-Tox was positive for meth 01/25/2025: Patient seen today at the dialysis unit found awake, alert, oriented x 3. No overnight events reported. Vitals and labs reviewed. Patient received hemodialysis today, had about 1 L removed total dialysis hours 2 hours 30 minutes postdialysis weight 61.5 kg. Blood pressure continues to be elevated Coreg adjusted from 25 mg twice daily to 12.5, added clonidine 0.1 mg to blood pressure regimen. Patient currently pending authorization for chair time for hemodialysis sessions. Will continue to follow at this time. 01/26/2025: Patient seen and examined at bedside, alert and oriented x 3. Patient received dialysis treatment yesterday, tolerated well. Patient is currently pending authorization for chair time for hemodialysis sessions. Will continue to follow patient. 01/28/2025: Patient seen and examined at bedside. Patient received dialysis treatment on 01/27/2025 for about 3 hours 1 minute, 2 L fluid removed. Patient's tuberculin skin test is negative, patient is pending chair time outpatient for hemodialysis sessions. Will continue to follow the patient. 01/29/2025: Patient seen and examined at bedside, resting comfortably. Pending outpatient dialysis placement due to insurance issues. Recommended patient attempt to sit in chair at least twice daily anticipation of discharge. 01/30/2025: Patient seen examined during dialysis, resting comfortably. Pending outpatient dialysis placement. Blood pressure continues to be difficult to control, patient noted to be on clonidine which is dialyzable. Recommend changing to RAAS system blockers such as valsartan. Sodium 140, potassium 4.8, bicarb 21.8, BUN 98, creatinine 3.4, EGFR 14. Exam Vital Signs Temp Pulse Resp BP Pulse Ox O2 Del Method O2 Flow Rate 97.3 F 67 19 143/73 H 93 L Room Air 2 01/30/25 08:00 01/30/25 08:45 01/30/25 08:00 01/30/25 08:45 01/30/25 08:00 01/30/25 08:00 01/29/25 00:00 Narrative Exam GENERAL APPEARANCE: Patient seems to be comfortable, adequately hydrated and nourished. NECK: Neck supple, no JVD or bruit Patient had right breast implant. Right sided tunneled dialysis catheter in place. CARDIOVASCULAR: Heart regular, no murmurs LUNGS/CHEST: Mild expiratory wheezing ABDOMEN: Soft, nontender, nondistended. No masses. Normal bowel sounds. EXTREMITIES: No edema SKIN: Skin exam normal without any rashes MUSCULOSKELETAL: in bed-able to move her extremities NEUROLOGICAL : No neurological deficits Objective Labs 01/30/25 05:05 01/30/25 05:05 Labs: Laboratory Results - last 24 hr 01/30/25 05:05 WBC 6.6 RBC 3.10 L Hgb 9.9 L Hct 30.9 L MCV 100 MCH 31.9 MCHC 32.0 RDW Std Deviation 56.1 H Plt Count 192 Neut % (Auto) 62 Lymph % (Auto) 21 [place] % (Auto) 13 H Eos % (Auto) 3 Baso % (Auto) 0 Neut # (Auto) 4.1 Lymph # (Auto) 1.4 [place] # (Auto) 0.9 H Eos # (Auto) 0.2 Baso # (Auto) 0.0 Immature Gran # (Auto) 0.04 H Absolute Nucleated RBC 0.00 Immature Gran % 1 H Nucleated RBC % 0 Sodium 140 Potassium 4.8 Chloride 108 H Carbon Dioxide 21.8 Anion Gap 10 BUN 98 H Creatinine 3.4 H Estim Creat Clear Calc 13.1 L eGFR 14 L* BUN/Creatinine Ratio 29 H Glucose 124 H Calculated Osmolality 310 H Calcium 8.2 L Corrected Calcium 8.5 Total Bilirubin < 0.2 L AST 30 ALT 35 Alkaline Phosphatase 135 H D Total Protein 5.9 Albumin 3.6 Globulin 2.3 Albumin/Globulin Ratio 1.6 ABG Interpretation ABG results: 01/18/25 01/18/25 09:50 13:43 VBG pH 7.11 L 7.17 L VBG pCO2 50 39 D VBG pO2 38 57 VBG Base Excess -14 L -14 L Quality Measures Quality Measures VTE prophylaxis Advance care planning discussed with:: patient Assessment & Plan Assessment Current Active Medications: Generic Name Dose Route Start Last Admin Trade Name Freq PRN Reason Stop Dose Admin Acetaminophen 650 mg 01/18/25 14:24 01/29/25 05:04 Acetaminophen 325 Mg Tablet PO 02/17/25 14:23 650 mg Q6H PRN Administration Fever >100.4 or pain 1-3 Albuterol 2 puff 01/28/25 17:34 01/30/25 02:53 Albuterol Inh 8 Gm INH 02/27/25 17:33 2 puff Q1H PRN Administration SHORTNESS OF BREATH OR WHEEZE Bumetanide 1 mg 01/25/25 09:00 01/29/25 10:11 Bumetanide 0.5 Mg Tablet PO 02/24/25 08:59 1 mg QDAY KENNEDY Administration Carvedilol 25 mg 01/26/25 17:30 01/29/25 17:07 Carvedilol 12.5 Mg Tablet PO 02/25/25 17:29 25 mg BIDWM KENNEDY Administration Docusate Sodium 100 mg 01/18/25 14:24 Docusate Sod 100 Mg Capsule PO 02/17/25 14:23 QDAY PRN CONSTIPATION Protocol Epoetin Kaden 10,000 unit 01/30/25 10:00 Epoetin Kaden Inj 1,000 Unit/0.05 Ml Unit SC 01/30/25 10:01 X1 ONE Famotidine 20 mg 01/26/25 09:00 01/29/25 10:12 Famotidine Inj 10 Mg/Ml Vial 2 Ml IVP 02/20/25 08:59 20 mg DAILY KENNEDY Administration Heparin Sodium (Porcine) 5,000 unit 01/18/25 21:00 01/29/25 23:10 Heparin Sod Inj 5000 Unit/Ml Vial SC 02/01/25 20:59 5,000 unit Q12HR KENNEDY Administration Heparin Sodium (Porcine) 3,800 unit 01/24/25 09:52 01/25/25 11:17 Heparin Sod Inj 1000 Unit/Ml Vial 10 Ml INDWELLCAT 02/07/25 09:51 3,800 unit PRN PRN Administration DIALYSIS Hydralazine HCl 100 mg 01/24/25 14:00 01/30/25 05:33 Hydralazine Hcl 25 Mg Tablet PO 02/23/25 13:59 100 mg TID KENNEDY Administration Hydralazine HCl 10 mg 01/24/25 17:04 Hydralazine Inj 20 Mg/Ml Vial IV 02/23/25 16:03 Q6H PRN SBP>160, hold if HR<60 Albumin Human 25 gm in 100 mls @ 100 mls/min 01/24/25 08:25 Albuminar-25 Ivpb IV PRN PRN DIALYSIS Metoclopramide HCl 5 mg 01/21/25 08:14 Metoclopramide Inj 5 Mg/Ml Vial 2 Ml IVP 02/20/25 08:14 Q6HR PRN nausea or vomiting Protocol Nifedipine 30 mg 01/24/25 22:00 01/30/25 05:32 Nifedipine Xl 30 Mg Tabcr PO 02/23/25 21:59 30 mg TID KENNEDY Administration Valsartan 40 mg 01/30/25 09:00 Valsartan 40 Mg Tablet PO 03/01/25 08:59 QDAY KENNEDY Plan 69-year-old female past medical history of HFrEF with a EF of 45 to 50%, CKD stage IV, hypertension, COPD, breast cancer status post unilateral mastectomy, meth abuse admitted for acute hypoxic respiratory failure and SREE #SREE on CKD #History of CKD stage IV #Non anion gap metabolic acidosis #Hypernatremia, asymptomatic Patient presents scented with elevated creatinine of 4.0 from a baseline of 2.5 and a BUN of 72. Patient has been noncompliant with her medications She has not been taking her Lasix and her BNP is 3280. However clinically patient is dehydrated with dry mucous membranes, decreased capillary refill. Patient received 1 dose of Lasix in the ER. Patient's lactic acid was normal at 1.3. Chloride was 117 and bicarb was 16.4 with a VBG showing a pH of 7.17 She has a history of HFrEF with previous echo showing 45 to 50% EF. Likely underlying cardiorenal syndrome Acidosis likely from persistent GI loses Patient kidney function is improving, however bicarb levels decreased. Patient received IV fluids yesterday, appears volume overloaded today. Crackles, edema improved notably. However kidney function has worsened, patient now hypernatremic. Suspect overdiuresis, patient receiving 2 mg Bumex IV twice daily. Held morning dose of Bumex, recommend pausing diuresis and fluid restriction. Patient drinks 5 L of fluid over 24-hour period, with 1.5 L urinary output. No short of breath the following morning with little change in kidney function. Tunneled dialysis catheter in place, patient received hemodialysis 01/27/2025. Hepatitis panel negative. Tuberculin skin test negative. ? Will continue inpatient dialysis ? Fluid restriction 1.8 L daily ? Trend renal function ? Avoid nephrotoxic medications ? Control hypertension, recommending changing clonidine (dialyzable) to an ARB ? Strict ZAKI's - Plan for patient to continue hemodialysis outpatient after discharge, twice weekly at [facility] #Hypertensive emergency #Troponinemia #HFrEF exacerbation #Meth abuse #COPD #Diarrhea ? Managed as per primary team Thank you for allowing us to be part of patient care during her time at [facility] Plan of care discussed with attending Dr. Pulido. Reji Mac MD PGY?1 Attending Provider Attestation/Addendum Patient currently seen and examined with resident physician Dr. Mac. Note reviewed, agree with findings and recommendations. Patient with SREE/cardiorenal syndrome and ended up on dialysis to prevent frequent hospitalizations. Clinically looks better. Still having some cough. Will add Robinul Patient currently seen on dialysis. Tolerating dialysis without any problems. Hemodialysis for 3 hours, 2K, ultrafiltration 2 L, Epogen 6000, no heparin ordered. Plan of care discussed with the dialysis nurse. Please see dialysis flowsheet for further details. Outpatient dialysis arrangements made twice weekly. Plan of care discussed with Dr. Maharaj.
[2025-01-30] MEDS: EPOETIN ALFA INJ 1,000 UNIT/0.05 ML UNIT 10000 UNIT SC (09:54)
[2025-01-30] MEDS: HEPARIN SOD INJ 1000 UNIT/ML VIAL 10 ML 3800 UNIT INDWELLCAT (10:48)
--- NOTE | 2025-01-30 15:51 | PC.RT ---
Follow up note: SS met with patient and spoke to her friend, Jonh @ [phone]. Jonh states he will be getting patient a room at [address] He will be taking care of her and making sure that after a few days he will have her stay with him at his niece's house. SS provided all resources and phone numbers for [facility], [facility], [employer] transportation, dialysis schedule, low income housing and homeless shelters. Patient has 02 that is at her friends house. Patient receives Social Security income and food stamps. Patient agreeable to plans. Patient refused SNF and was previously staying in a van. Patient's insurance denied request for SNF. Patient does have [employer] but no SNF responded locally to senior care care placement. D/c for today. Patient will start dialysis on February 02, 2025
--- NOTE | 2025-01-30 16:05 | ESDS_ITS ---
<Statement entered by Alisia Maharaj DO - 01/31/25 08:31> I, Alisia Maharaj DO, attest that I was physically present for the rubin portions of the service and evaluated the patient with the resident and I reviewed and discussed the case with the resident and agree with the resident's findings and plans of care as documented above Planned Discharge Date 01/30/25 DS: Providers Provider Date of admission: 01/18/25 14:19 Primary care physician: Physician No Primary/Family Admitting Provider: Alisia Maharaj DO Attending Provider on Admission: Alisia Maharaj DO Consults: 01/18/25 14:19 Referral Physical Therapy Routine Comment: Physician Instructions: 01/18/25 14:27 Consult to Cardiology Routine Comment: CHF, Cardiorenal syndrome Consulting Provider: Pillo Mauricio 01/18/25 14:28 Consult to Nephrology Routine Comment: Cardiorenal, SREE Consulting Provider: Victoria Pulido 01/18/25 23:19 [facility] Referral - Safety Routine Comment: Positive screening for safety needs. 01/27/25 12:28 Referral Registered Dietitian Routine Comment: needs education on diet restrictions from RD Attending Provider on DC: Alisia Maharaj DO Discharging Provider: Ayush Grossman MD DS: Diagnosis Discharge Diagnosis (1) End stage renal disease on dialysis: Status: Acute Problem List Completed Was Problem List Reviewed/Reconciled?: Yes Hospital Course Hospital Course Hospital course: Hospital Course: Ms Freed is a 69 year old F with past medical history significant for hypertension, CKD, breast cancer s/p resection, COPD, CHF presents with chief complaint of shortness of breath, negative for metabolic acidosis with SREE on CKD. Chest x-ray showed some vascular congestion. Patient down graded from CKD Stage IV -> Stage V during hospitalization. Nephrology was consulted, appreciate recommendations to start HD given ESRD. she is advised to follow up outpatient with director long term care Dr Pulido to continue OP hemodialysis. Problems on this admission: - ESRD on HD - Cardiorenal syndrome - Hypertensive urgency-resolved - Resistant HTN - Acute decompensated heart failure - HFmEF 45-50% - Elevated troponins, likely Type II - COPD - Right shoulder, AC separation - Polysubstance abuse - Acute diarrhea-resolved Procedures: RT internal jugular access for hemodialysis Discharge instructions: - Follow-up with PCP within 1 week from discharge - Stop Lasix. Start Bumetanide 1 mg daily for fluid overload - Take the following blood pressure medicines for resistant hypertension: Carvedilol 25 mg twice a day Losartan 40 mg daily Clonidine 0.1 mg twice a day Hydralazine 100 mg 3 times a day Nifedipine 20 mg 3 times a day - Follow-up with nephrology Dr. Pulido outpatient after discharge, to continue dialysis - Stop stop taking amlodipine, will plan, lisinopril, Lasix, tolterodine - Continue taking Trelegy inhaler for COPD - Return to ED if symptoms worsen We are grateful to be able to participate in Mr Freed's care. We wish her the best. Plan of care discussed with attending Aung Bacon M.D. PGY2 Disclaimer: Minor errors in ranger aide may be present as this note was dictated using voice recognition software. Status at Discharge Cognitive/behavioral status at discharge: Stable and returned to baseline. Time Spent with Patient Time attestation: Total time spent providing and/or coordinating discharge services: more than 50% Time spent: Greater than 30 minutes Exam Vital Signs Temp Pulse Resp BP Pulse Ox O2 Del Method O2 Flow Rate 97.6 F 80 19 148/77 H 97 Nasal Cannula 2 01/30/25 11:52 01/30/25 13:15 01/30/25 11:52 01/30/25 13:15 01/30/25 11:52 01/30/25 11:52 01/30/25 11:52 Narrative Exam Physical Exam: GENERAL APPEARANCE: Awake, answering questions appropriately, appears stated age NECK: Neck supple, no JVD or bruit Patient had right breast implant. Right sided tunneled dialysis catheter in place. CARDIOVASCULAR: Heart regular, no murmurs LUNGS/CHEST: Mild expiratory wheezing ABDOMEN: Soft, nontender, nondistended. No masses. Normal bowel sounds. EXTREMITIES: No edema noted on bilateral lower extremities SKIN: Skin exam normal without any rashes MUSCULOSKELETAL: in bed-able to move her extremities NEUROLOGICAL : No neurological deficits Discharge Plan Plan Patient Disposition: HOME (Self Care) Disposition Comment: Hospitalist admit Patient condition on transfer: Stable Care Plan Goals: - Follow-up with PCP within 1 week from discharge - Stop Lasix. Start Bumetanide 1 mg daily for fluid overload - Take the following blood pressure medicines for resistant hypertension: Carvedilol 25 mg twice a day Losartan 40 mg daily Clonidine 0.1 mg twice a day Hydralazine 100 mg 3 times a day Nifedipine 20 mg 3 times a day - Follow-up with nephrology Dr. Pulido outpatient after discharge, to continue dialysis - Stop stop taking amlodipine, will plan, lisinopril, Lasix, tolterodine - Continue taking Trelegy inhaler for COPD - Return to ED if symptoms worsen Prescriptions/Referrals Prescriptions/Med Rec: New carvedilol 25 mg tablet 25 mg PO BID 30 Days Qty: 60 0RF Rx Instructions: must administer with a meal/food clonidine HCl 0.1 mg tablet 0.1 mg PO BID 30 Days Qty: 60 0RF bumetanide 1 mg tablet 1 mg PO DAILY 30 Days Qty: 30 0RF nifedipine 30 mg tablet extended release 30 mg PO TID 30 Days Qty: 90 0RF valsartan 40 mg tablet 40 mg PO QDAY 30 Days Qty: 30 0RF hydralazine 100 mg tablet 100 mg PO TID 30 Days Qty: 90 0RF Continued Trelegy Ellipta 200-62.5-25 mcg blister with device 2 inh inhalation BID Qty: 60 0RF polyethylene glycol 3350 [Miralax] 17 gram/dose powder 4 g PO QDAY Qty: 119 0RF Discontinued bupropion HCl 150 mg Tablet Sustained-Release 12 Hr 150 mg PO BID tolterodine 4 mg Capsule,Extended Release 24hr 4 mg PO QDAY amlodipine 10 mg tablet 10 mg PO QDAY Qty: 30 1RF prednisone 50 mg tablet 50 mg PO QDAY Qty: 4 0RF lisinopril 5 mg tablet 5 mg PO QDAY Qty: 30 0RF carvedilol 12.5 mg Tablet 12.5 mg PO BIDWM 30 Days Qty: 60 2RF furosemide [Lasix] 40 mg tablet 40 mg PO QDAY Qty: 30 2RF lisinopril 5 mg tablet 5 mg PO QDAY Qty: 30 0RF Referrals: No Primary/Family,Physician [Primary Care Provider] - Patient/Caregiver Discharge Instructions Discharge Activity: resume usual activities Other Discharge Activity Instructions:: Patient will need to continue twice weekly dialysis sessions at [facility] Mon. and Wed. at 9a.m. Start date February 02, #[phone]. Education Materials: Hemodialysis Print Language: Croatian Stand Alone Forms: Fern Award Info., Patient Portal Info Letter Discharge Order Discharge Orders: Discharge (Routine); Ordered 01/30/25 Ordered By: Ayush Grossman Quality Discharge Quality Measures VTE prophylaxis
[2025-01-30] MEDS: carVEDILOL 12.5 MG TABLET 25 MG PO (17:08)
--- NOTE | 2025-01-30 19:07 | ESPR_ITS ---
Documentation for date of: 01/30/25 Subjective Subjective Interval history: No acute overnight events. Denies fever, chills, headaches, chest pain, sob, cough, GI or urinary symptoms. BP 165/83, HR 84. Renal function stable but not improved, CR 3.4, BUN 98, continued on HD. On Bumex 1 mg daily, 24H urine output 1.2L. We stropped CLONIDINE and started VALSARTAN 40 mg daily for BP control. May increase VALSARTAN or add SPIRONOLACTONE if BP remains high. Exam Vital Signs Temp Pulse Resp BP Pulse Ox O2 Del Method O2 Flow Rate 97.5 F 84 19 165/83 H 96 Room Air 2 01/30/25 16:00 01/30/25 17:08 01/30/25 16:00 01/30/25 17:08 01/30/25 16:01/30/25 16:00 01/30/25 11:52 Narrative Exam General: AOx3, no acute distress, NAD, on room air. Right HD cath noted. HEENT: dry mucous membranes, NC/AT, bilateral sclera anicteric Cardiovascular: regular rate and rhythm, S1/S2 present, no murmurs appreciated Pulmonary: mild bibasilar crackle, no wheezing. Abdominal: soft, non-tender, non-distended, no rebound/guarding, normal bowel sounds present Musculoskeletal: No BLE pitting edema, large right-sided breast implant, normal ROM Skin: warm and dry, intact, no rashes Neuro: CN II-XII intact, no focal deficits Objective Labs 01/30/25 05:05 01/30/25 05:05 Labs: Laboratory Results - last 24 hr 01/30/25 05:05 WBC 6.6 RBC 3.10 L Hgb 9.9 L Hct 30.9 L MCV 100 MCH 31.9 MCHC 32.0 RDW Std Deviation 56.1 H Plt Count 192 Neut % (Auto) 62 Lymph % (Auto) 21 [place] % (Auto) 13 H Eos % (Auto) 3 Baso % (Auto) 0 Neut # (Auto) 4.1 Lymph # (Auto) 1.4 [place] # (Auto) 0.9 H Eos # (Auto) 0.2 Baso # (Auto) 0.0 Immature Gran # (Auto) 0.04 H Absolute Nucleated RBC 0.00 Immature Gran % 1 H Nucleated RBC % 0 Sodium 140 Potassium 4.8 Chloride 108 H Carbon Dioxide 21.8 Anion Gap 10 BUN 98 H Creatinine 3.4 H Estim Creat Clear Calc 13.1 L eGFR 14 L* BUN/Creatinine Ratio 29 H Glucose 124 H Calculated Osmolality 310 H Calcium 8.2 L Corrected Calcium 8.5 Total Bilirubin < 0.2 L AST 30 ALT 35 Alkaline Phosphatase 135 H D Total Protein 5.9 Albumin 3.6 Globulin 2.3 Albumin/Globulin Ratio 1.6 ABG Interpretation ABG results: 01/18/25 01/18/25 09:50 13:43 VBG pH 7.11 L 7.17 L VBG pCO2 50 39 D VBG pO2 38 57 VBG Base Excess -14 L -14 L Quality Measures Quality Measures VTE prophylaxis Advance care planning discussed with:: patient Assessment & Plan Assessment Current Active Medications: Generic Name Dose Route Start Last Admin Trade Name Freq PRN Reason Stop Dose Admin Acetaminophen 650 mg 01/18/25 14:24 01/29/25 05:04 Acetaminophen 325 Mg Tablet PO 02/17/25 14:23 650 mg Q6H PRN Administration Fever >100.4 or pain 1-3 Albuterol 2 puff 01/28/25 17:34 01/30/25 02:53 Albuterol Inh 8 Gm INH 02/27/25 17:33 2 puff Q1H PRN Administration SHORTNESS OF BREATH OR WHEEZE Bumetanide 1 mg 01/25/25 09:00 01/30/25 09:02 Bumetanide 0.5 Mg Tablet PO 02/24/25 08:59 Not Given QDAY KENNEDY Carvedilol 25 mg 01/26/25 17:30 01/30/25 17:08 Carvedilol 12.5 Mg Tablet PO 02/25/25 17:29 25 mg BIDWM KENNEDY Administration Docusate Sodium 100 mg 01/18/25 14:24 Docusate Sod 100 Mg Capsule PO 02/17/25 14:23 QDAY PRN CONSTIPATION Protocol Famotidine 20 mg 01/26/25 09:00 01/30/25 09:02 Famotidine Inj 10 Mg/Ml Vial 2 Ml IVP 02/20/25 08:59 Not Given DAILY KENNEDY Heparin Sodium (Porcine) 5,000 unit 01/18/25 21:00 01/30/25 09:02 Heparin Sod Inj 5000 Unit/Ml Vial SC 02/01/25 20:59 Not Given Q12HR [facility] [place] Heparin Sodium (Porcine) 3,800 unit 01/24/25 09:52 01/30/25 10:48 Heparin Sod Inj 1000 Unit/Ml Vial 10 Ml INDWELLCAT 02/07/25 09:51 3,800 unit PRN PRN Administration DIALYSIS Hydralazine HCl 100 mg 01/24/25 14:00 01/30/25 13:15 Hydralazine Hcl 25 Mg Tablet PO 02/23/25 13:59 100 mg TID KENNEDY Administration Hydralazine HCl 10 mg 01/24/25 17:04 Hydralazine Inj 20 Mg/Ml Vial IV 02/23/25 16:03 Q6H PRN SBP>160, hold if HR<60 Albumin Human 25 gm in 100 mls @ 100 mls/min 01/24/25 08:25 Albuminar-25 Ivpb IV PRN PRN DIALYSIS Metoclopramide HCl 5 mg 01/21/25 08:14 Metoclopramide Inj 5 Mg/Ml Vial 2 Ml IVP 02/20/25 08:14 Q6HR PRN nausea or vomiting Protocol Nifedipine 30 mg 01/24/25 22:00 01/30/25 13:15 Nifedipine Xl 30 Mg Tabcr PO 02/23/25 21:59 30 mg TID KENNEDY Administration Valsartan 40 mg 01/30/25 09:00 01/30/25 09:02 Valsartan 40 Mg Tablet PO 03/01/25 08:59 Not Given QDAY [facility] [place] Plan 68-year-old female with a past medical history of Mild CAD by cath in June 2024, nonischemic cardiomyopathy with severe systolic congestive heart failure with an EF of 30 to 35% 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 Patient known to me from previous admission in June 2024 when she was diagnosed with severe systolic congestive heart failure. Patient was adequately diuresed and had a left and right heart cardiac catheterization performed at that time which showed mild CAD of 30% stenosis in the LAD. Nonischemic cardiomyopathy was diagnosed mostly secondary to methamphetamine abuse and history of drug abuse. Patient was started on some goal-directed medical therapy but did not follow-up regularly in the office. Patient apparently was admitted again in October 2024 when an echo was repeated and showed EF improved to 40 to 45%. Now she presents again with shortness of breath orthopnea as well as bilateral lower extremity edema. Patient continues to use methamphetamine and says that she has decreased the amount that she is using. Patient social situation is also not good as she was homeless previously a and was living in a trailer but at the present point of time does not have a home. Does not have anyone to take care of her closely or bring her to the appointments. Upon arrival to the ED, BP 206/135, saturating 97% on 6 L nasal cannula but upon evaluation saturating 94% on room air, HR 85, RR 20, afebrile. CBC unremarkable. VBG showed pH 7.17, PCO2 39, PO2 57. CHEM panel showed K 5.1, chloride 117, HCO3 16, BUN 72, creatinine 4, GFR 11, Mg 1.3, AST/ALT 50/51, alk phos 139, BNP > 3000, troponin 0.084 -> 0.077. UA showed 2+ protein, 1+ blood, 6 RBC. U tox positive for amphetamine. CXR showed mild vascular congestion, mildly enlarged cardiac contour, but no pneumonia or pulmonary edema. EKG showed HR 85, NSR, no ST or T wave abnormalities. On examination patient has significant bilateral crackles and has at least 1-2+ edema, puffy face as well as 2 or 6 systolic murmur heard at the apex. Difficult to assess the JVD. Assessment and plan: 1. Acute on chronic systolic CHF exacerbation 2. ESRD on HD - started 01/26/2025 3. Possible cardiorenal syndrome with hepatic congestion from the CHF exacerbation 4. Nonischemic cardiomyopathy mostly secondary to drug abuse 5. Mild CAD by cardiac cath in June 2024 6. Elevated LFTs mostly secondary to hepatic congestion 7. Mildly elevated troponins mostly secondary to NSTEMI type II 8. Hypertensive urgency 9. History of COPD not on home oxygen 10. Polysubstance abuse with meth abuse as well as history of smoking and continues to smoke currently 11. breast cancer s/p bilateral mastectomy 1995 and history of breast implants 12. Homeless Patient presented with shortness of breath, leg swelling as well as orthopnea for the past few weeks. Patient on examination has bilateral crackles and has 1 to + leg edema along with puffy face. Patient is hypoxic requiring 4 to 6 L via nasal cannula on arrival which improved after diuresis. Chest x-ray does show mild vascular congestion and BNP was greater than 3280. Also patient presented with hypertensive urgency with a blood pressure of 206/135. BUN and creatinine were at 72 and 4.1. Patient baseline creatinine around 2.5-2.7 during the last admission even in November 2024 Patient has elevated LFTs also indicating hepatic congestion. Overall clinical picture suggest acute on chronic systolic congestive heart failure with cardiorenal syndrome presentation. Recommend aggressive diuresis with the Lasix 40 mg IV twice daily and can change to Bumex if there is no signs of urine output. Discontinued IV fluids for now. Strict input output, daily weights and 2 g sodium diet. Recent echo reviewed and showed an EF of 40 to 45% with mild systolic dysfunction and previous echo was severe systolic dysfunction with an EF of 30 to 35%. Patient appears to have not been taking her medications including any medications for the heart failure or for her blood pressure and presented with high blood pressure 206/135 mmHg. Recommend to aggressively diurese the patient and start the patient on amlodipine 10 mg once daily for now and will start beta-nidhi later once the patient is adequately diuresed. No BETTY inhibitor's or ARB's in view of the SREE on CKD Patient with acute kidney injury on CKD stage IV. Nephrology was also consulted by the primary team and patient might eventually need dialysis if kidney function does not improve with diuresis. Patient has mildly elevated troponins of 0.07 and 0.08 admitted mostly secondary to acute CHF exacerbation and patient already had echocardiogram which showed mild CAD in June 2024. Patient counseled regarding quitting smoking completely as well as drug abuse Patient counseled and recommended to make sure to show for follow-up appointments with PCP, nephrology as well as cardiology. Recommended renal social worker as well as case management consult for placement for this patient and also will need possible rehab at the time of discharge including drug rehab. 01/19/2025-patient did not diurese much last night and will change the patient from Lasix to Bumex 2 mg IV twice a day for now. Continue strict input output, daily weights and 2 g sodium diet. Patient overall appears to be better in the evening around send output was greater than 1 L. Kidney function today showed creatinine of 3.8 and was 4.1 yesterday. Blood pressure is in the range of 160 to 180 mmHg. Continue amlodipine for now and will restart Coreg once patient is diuresed well.Rest of the vitals stable 01/20/2025 - Patient diuresed well with Bumex yesterday and was net negative around 1 to 2 L. BUN is 83 today and creatinine of 4.0 but sodium increased to 146 and chloride is also 112. Leg edema and facial edema has improved considerably but patient appears to be intravascularly depleted but still has some extravascular fluid with 1+ leg edema. Nephrology recommended to hold the Bumex for today and also to hold the fluid restriction and will reevaluate tomorrow morning for further diuresis based on the labs. 01/21/25 - Yesterday patient did drink up to 5 L of fluid after removing the fluid restriction. She is net +4 L from yesterday and appears to be fluid overloaded Discussed with nephrology team again and patient has cardiorenal syndrome and recommended to restart IV diuresis along with fluid restriction. As patient is hyponatremic causing intravascular depletion due to aggressive diuresis will decrease the Bumex dose to 1 mg IV once daily and for now Strict input output, daily weights and 2 g sodium diet. Patient again recommended to restrict her fluid intake. Patient blood pressure continues to be elevated for now continue with amlodipine 10 mg once daily and will restart the patient Coreg which is her home medication and add hydralazine if needed no BETTY or ARB given the CKD stage IV. 01/23/2025 Currently NPO for HD cath. Continued on BUMEX 1 mg daily and fluid restriction, had 2.2L urine output, overall 4.8L positive. Weight today 63.5, same as presentation. Has bibasilar crackles on exam, but no LE edema. Satting well on room air. Renal function remains poor, CR 3.3 > 3.6, GFR 14 > 13, BUN 77. CBC reviewed and appears at baseline. LFTs wnl, glucose 206. Corrected calcium 7.5, remainder elytes normal. At this point, cardiorenal type 2 still most likely dx, as she is very dependent on diuresis, goes into fluid overload whenever diuresis discontinued. However, she has poor tolerance for diuresis with worsening renal function. Nephrology recommended ultrafiltration twice a week, agree with plan. continue diuresis as pt with good urine output, fluid restriction and daily weights. BP not well controlled, SBP 150-160s despite multiple meds, including NIFEDIPINE, CARVEDILOL and HYDRALAZINE. However, BP, will likely improve with hemodialysis. Continue avoiding BETTY and ARB's in settings of CKD stage IV. Overall, high concern for HD and medication non-compliance given her living situation. Appears primary team working on stable housing, which she will need. 01/24/2025 HD cath placed, scheduled for HD session today. had 580 cc urine output with BUMEX 1 mg. Overall 4.2 L net positive. No improvement in renal function, CR 3.8, BUN 74, EGFR 12. Magnesium 1.4, corrected calcium 8.1, remainder electrolyte WNL. CBC stable. Will continue BUMEX 1 mg daily, and HD twice a week. BP 151/92 and will likely improve with ultrafiltration. Continue with current blood pressure meds. 01/25/2025 HD session scheduled for today. BUMEX was held overnight, urine output roguhly 500 cc. Renal function showing slight improvement: BUN 64, CR 3.3, EGFR 14. Stable BP 150/86, HR 86. Currently pending outpatient HD chair placement. Will continue with BUMEX, blood pressure control and hemodialysis as needed. 01/26/2025 Doing well overall. 1.4 L fluid was removed during HD yesterday, she had roughly 500 cc of urine output this morning. Labs showed BUN 85, CR 3.1, magnesium 1.5, potassium 4.3, CBC at baseline. Primary team repleted magnesium. Will continue with hemodialysis per nephrology. BP 159/74, still elevated, increased COREG to 25 mg BID. Continue all other medications as listed. Maintain magnesium greater than 2, potassium greater than 4. 01/27/2025 - Patient continues to have hemodialysis and the patient will be likely on hemodialysis going forward. Blood pressure is better controlled after increasing the Coreg to 25 mg twice daily.Continue rest of her blood pressure medications for now and blood pressure continues to hide then patient should be started on losartan as she will be permanently on dialysis. Patient Otherwise doing well and is pending TB test results and also outpatient dialysis arrangements. 01/28/2025. Had HD session yesterday, 2.1 L removed, poor urine output, active bleeding of . Renal function showing CR 3.2, BUN 68, GFR 13, normal electrolytes. BP improved 144/75, HR 84. ? Continue with hemodialysis ? Continue BUMEX 1 mg q. day. ? Continue CARVEDILOL 25 mg BID ? Continue CLONIDINE 0.1 mg BID ? Continue HYDRALAZINE 100 mg TID ? Continue NIFEDIPINE 30 mg TID ? Consider adding BETTY/ARB 06/02/2025 No improvement in renal function, continued on BUMEX and HD. BP remains elevated, discontinued CLONIDINE, started VALSARTAN 40 mg daily. May increase VASLARTAN if remain hypertensive, may consider adding SPIRONLACTONE. Management of rest of the medical conditions as per primary team and other consultants. Thank you for the consult and allowing me to participate in the care of the patient. Cardiology will continue to follow. Thank you for the opportunity to participate in the patient's care. Case was discussed with attending, Dr. Mauricio. Jacquie Eduardo DO PGYI Attending Provider Attestation/Addendum I have personally seen and examined the patient separately on the above date of service and discussed the plan of care with the resident. I reviewed the resident Dr. Jacquie Eduardo consultation progress note and agree with the resident findings and plan in the note above and have also edited the documentation to reflect my findings and plan. Pillo Mauricio M.D. Interventional Cardiology
[2025-01-30] MEDS: ACETAMINOPHEN 325 MG TABLET 650 MG PO (20:32)
[2025-01-30] MEDS: HEPARIN SOD INJ 5000 UNIT/ML VIAL SC (20:33)
[2025-01-30] MEDS: LIDOCAINE 5% 1 PATCH TOP (20:39)
[2025-01-31] VITALS (8 sets, daily range): BP systolic 144–175; BP diastolic 46–91; PULSE 66–79; RESP 16–18; TEMP 36.3–36.6; O2SAT 92–94
[2025-01-31] MEDS: hydrALAZINE HCL 25 MG TABLET 100 MG PO (05:30)
[2025-01-31] MEDS: NIFEdipine XL 30 MG TABCR PO (05:31)
[2025-01-31 06:02] LABS: Basophils % (Auto) 1 % (0-2.5); Eosinophils # (Auto) 0.2 Thou/mm3 (0.0-0.5); Eosinophils % (Auto) 4 % (0-10); Hematocrit 32.9 % (36.0-46.0); Hemoglobin 10.4 g/dL (12.0-16.0); Immature Granulocytes % (Auto) 1 % (0-0); Immature Granulocytes Auto 0.05 Thou/mm3 (0.00-0.00); Lymphocytes # (Auto) 1.7 Thou/mm3 (1.0-4.8); Lymphocytes % (Auto) 27 % (10-50); Mean Corpuscular HGB Conc 31.6 g/dl (31.0-37.0); Mean Corpuscular Hemoglobin 31.6 pg (25.0-35.0); Mean Corpuscular Volume 100 fL (80-100); Monocytes # (Auto) 0.8 Thou/mm3 (0.0-0.8); Monocytes % (Auto) 12 % (0-12); Neutrophils # (Auto) 3.5 Thou/mm3 (1.8-7.7); Neutrophils % (Auto) 56 % (37-80); Nucleated Red Blood Cell % 0 /100 WBC (0); Platelet Count 212 Thou/mm3 (140-440); RDW Standard Deviation 57.1 fL (36.4-46.3); Red Blood Count 3.29 Miln/mm3 (4.00-5.20); White Blood Count 6.2 Thou/mm3 (3.6-11.0)
[2025-01-31 06:32] LABS: Alanine Aminotransferase 32 U/L (10-49); Albumin, Serum 3.8 gm/dL (3.4-4.8); Albumin/Globulin Ratio 1.7 (1.2-2.2); Alkaline Phosphatase 136 U/L (46-116); Anion Gap 12 (7-16); Aspartate Amino Transferase 25 U/L (0-34); BUN/Creatinine Ratio 21 Ratio (12-20); Bilirubin,Total < 0.2 mg/dL (0.3-1.2); Blood Urea Nitrogen 64 mg/dL (9-23); Calcium 8.2 mg/dL (8.3-10.6); Calcium (Corrected) 8.4 mg/dL (8.5-10.1); Carbon Dioxide 26.5 mMol/L (20.0-31.0); Chloride 106 mMol/L (98-107); Estimated Creatinine Clearance 14.9 mL/min (>60); Globulin 2.3 gm/dL (2.3-3.5); Glucose 115 mg/dL (74-106); Osmolality,Calculated 306 (275-295); Potassium 4.5 mMol/L (3.4-5.1); Sodium 144 mMol/L (136-145); Total Protein 6.1 gm/dL (5.7-8.2); eGFR 16 See Note
--- NOTE | 2025-01-31 07:52 | PD.RESPRO ---
Documentation for date of: 01/31/25 Subjective Subjective Interval history: No acute overnight events. Denies new or worsening symptoms. Denies fever, chills, headaches, chest pain, sob, cough, GI or urinary symptoms. Urine output 700 cc with BUMEX. BP 140/83, HR 76, this was before VALSARTAN, will likely improve after VALSARTAN. Had HD yesterday, CR 3.0, BUN 64, GFR 16. CBC stable, relatively unchanged. Continue with current management. Exam Vital Signs Temp Pulse Resp BP Pulse Ox O2 Del Method O2 Flow Rate 97.7 F 76 16 148/83 H 94 L Nasal Cannula 2 01/31/25 04:00 01/31/25 05:31 01/31/25 04:00 01/31/25 05:01/31/25 04:00 01/31/25 04:00 01/31/25 04:00 Narrative Exam General: AOx3, no acute distress, NAD, on room air. Right HD cath noted. HEENT: dry mucous membranes, NC/AT, bilateral sclera anicteric Cardiovascular: regular rate and rhythm, S1/S2 present, no murmurs appreciated Pulmonary: mild bibasilar crackle, no wheezing. Abdominal: soft, non-tender, non-distended, no rebound/guarding, normal bowel sounds present Musculoskeletal: No BLE pitting edema, large right-sided breast implant, normal ROM Skin: warm and dry, intact, no rashes Neuro: CN II-XII intact, no focal deficits Objective Labs 01/31/25 04:58 01/31/25 04:58 Labs: Laboratory Results - last 24 hr 01/31/25 04:58 WBC 6.2 RBC 3.29 L Hgb 10.4 L Hct 32.9 L MCV 100 MCH 31.6 MCHC 31.6 RDW Std Deviation 57.1 H Plt Count 212 Neut % (Auto) 56 Lymph % (Auto) 27 Lipscomb % (Auto) 12 Eos % (Auto) 4 Baso % (Auto) 1 Neut # (Auto) 3.5 Lymph # (Auto) 1.7 Lipscomb # (Auto) 0.8 Eos # (Auto) 0.2 Baso # (Auto) 0.0 Immature Gran # (Auto) 0.05 H Absolute Nucleated RBC 0.00 Immature Gran % 1 H Nucleated RBC % 0 Sodium 144 Potassium 4.5 Chloride 106 Carbon Dioxide 26.5 Anion Gap 12 BUN 64 H Creatinine 3.0 H Estim Creat Clear Calc 14.9 L eGFR 16 L BUN/Creatinine Ratio 21 H Glucose 115 H Calculated Osmolality 306 H Calcium 8.2 L Corrected Calcium 8.4 L Total Bilirubin < 0.2 L AST 25 ALT 32 Alkaline Phosphatase 136 H Total Protein 6.1 Albumin 3.8 Globulin 2.3 Albumin/Globulin Ratio 1.7 ABG Interpretation ABG results: 01/18/25 01/18/25 09:50 13:43 VBG pH 7.11 L 7.17 L VBG pCO2 50 39 D VBG pO2 38 57 VBG Base Excess -14 L -14 L Quality Measures Quality Measures VTE prophylaxis Advance care planning discussed with:: patient Assessment & Plan Assessment Current Active Medications: Generic Name Dose Route Start Last Admin Trade Name Freq PRN Reason Stop Dose Admin Acetaminophen 650 mg 01/18/25 14:24 01/30/25 20:32 Acetaminophen 325 Mg Tablet PO 02/17/25 14:23 650 mg Q6H PRN Administration Fever >100.4 or pain 1-3 Albuterol 2 puff 01/28/25 17:34 01/30/25 02:53 Albuterol Inh 8 Gm INH 02/27/25 17:33 2 puff Q1H PRN Administration SHORTNESS OF BREATH OR WHEEZE Bumetanide 1 mg 01/25/25 09:00 01/30/25 09:02 Bumetanide 0.5 Mg Tablet PO 02/24/25 08:59 Not Given QDAY KENNEDY Carvedilol 25 mg 01/26/25 17:30 01/30/25 17:08 Carvedilol 12.5 Mg Tablet PO 02/25/25 17:29 25 mg BIDWM KENNEDY Administration Docusate Sodium 100 mg 01/18/25 14:24 Docusate Sod 100 Mg Capsule PO 02/17/25 14:23 QDAY PRN CONSTIPATION Protocol Famotidine 20 mg 01/26/25 09:00 01/30/25 09:02 Famotidine Inj 10 Mg/Ml Vial 2 Ml IVP 02/20/25 08:59 Not Given DAILY KENNEDY Heparin Sodium (Porcine) 5,000 unit 01/18/25 21:00 01/30/25 20:33 Heparin Sod Inj 5000 Unit/Ml Vial SC 02/01/25 20:59 5,000 unit Q12HR KENNEDY Administration Heparin Sodium (Porcine) 3,800 unit 01/24/25 09:52 01/30/25 10:48 Heparin Sod Inj 1000 Unit/Ml Vial 10 Ml INDWELLCAT 02/07/25 09:51 3,800 unit PRN PRN Administration DIALYSIS Hydralazine HCl 100 mg 01/24/25 14:00 01/31/25 05:30 Hydralazine Hcl 25 Mg Tablet PO 02/23/25 13:59 100 mg TID KENNEDY Administration Hydralazine HCl 10 mg 01/24/25 17:04 Hydralazine Inj 20 Mg/Ml Vial IV 02/23/25 16:03 Q6H PRN SBP>160, hold if HR<60 Albumin Human 25 gm in 100 mls @ 100 mls/min 01/24/25 08:25 Albuminar-25 Ivpb IV PRN PRN DIALYSIS Metoclopramide HCl 5 mg 01/21/25 08:14 Metoclopramide Inj 5 Mg/Ml Vial 2 Ml IVP 02/20/25 08:14 Q6HR PRN nausea or vomiting Protocol Nifedipine 30 mg 01/24/25 22:00 01/31/25 05:31 Nifedipine Xl 30 Mg Tabcr PO 02/23/25 21:59 30 mg TID KENNEDY Administration Valsartan 40 mg 01/30/25 09:00 01/30/25 09:02 Valsartan 40 Mg Tablet PO 03/01/25 08:59 Not Given QDAY KENNEDY Plan 68-year-old female with a past medical history of Mild CAD by cath in June 2024, nonischemic cardiomyopathy with severe systolic congestive heart failure with an EF of 30 to 35% 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 Patient known to me from previous admission in June 2024 when she was diagnosed with severe systolic congestive heart failure. Patient was adequately diuresed and had a left and right heart cardiac catheterization performed at that time which showed mild CAD of 30% stenosis in the LAD. Nonischemic cardiomyopathy was diagnosed mostly secondary to methamphetamine abuse and history of drug abuse. Patient was started on some goal-directed medical therapy but did not follow-up regularly in the office. Patient apparently was admitted again in October 2024 when an echo was repeated and showed EF improved to 40 to 45%. Now she presents again with shortness of breath orthopnea as well as bilateral lower extremity edema. Patient continues to use methamphetamine and says that she has decreased the amount that she is using. Patient social situation is also not good as she was homeless previously a and was living in a trailer but at the present point of time does not have a home. Does not have anyone to take care of her closely or bring her to the appointments. Upon arrival to the ED, BP 206/135, saturating 97% on 6 L nasal cannula but upon evaluation saturating 94% on room air, HR 85, RR 20, afebrile. CBC unremarkable. VBG showed pH 7.17, PCO2 39, PO2 57. CHEM panel showed K 5.1, chloride 117, HCO3 16, BUN 72, creatinine 4, GFR 11, Mg 1.3, AST/ALT 50/51, alk phos 139, BNP > 3000, troponin 0.084 -> 0.077. UA showed 2+ protein, 1+ blood, 6 RBC. U tox positive for amphetamine. CXR showed mild vascular congestion, mildly enlarged cardiac contour, but no pneumonia or pulmonary edema. EKG showed HR 85, NSR, no ST or T wave abnormalities. On examination patient has significant bilateral crackles and has at least 1-2+ edema, puffy face as well as 2 or 6 systolic murmur heard at the apex. Difficult to assess the JVD. Assessment and plan: 1. Acute on chronic systolic CHF exacerbation 2. ESRD on HD - started 01/26/2025 3. Possible cardiorenal syndrome with hepatic congestion from the CHF exacerbation 4. Nonischemic cardiomyopathy mostly secondary to drug abuse 5. Mild CAD by cardiac cath in June 2024 6. Elevated LFTs mostly secondary to hepatic congestion 7. Mildly elevated troponins mostly secondary to NSTEMI type II 8. Hypertensive urgency 9. History of COPD not on home oxygen 10. Polysubstance abuse with meth abuse as well as history of smoking and continues to smoke currently 11. breast cancer s/p bilateral mastectomy 1995 and history of breast implants 12. Homeless Patient presented with shortness of breath, leg swelling as well as orthopnea for the past few weeks. Patient on examination has bilateral crackles and has 1 to + leg edema along with puffy face. Patient is hypoxic requiring 4 to 6 L via nasal cannula on arrival which improved after diuresis. Chest x-ray does show mild vascular congestion and BNP was greater than 3280. Also patient presented with hypertensive urgency with a blood pressure of 206/135. BUN and creatinine were at 72 and 4.1. Patient baseline creatinine around 2.5-2.7 during the last admission even in November 2024 Patient has elevated LFTs also indicating hepatic congestion. Overall clinical picture suggest acute on chronic systolic congestive heart failure with cardiorenal syndrome presentation. Recommend aggressive diuresis with the Lasix 40 mg IV twice daily and can change to Bumex if there is no signs of urine output. Discontinued IV fluids for now. Strict input output, daily weights and 2 g sodium diet. Recent echo reviewed and showed an EF of 40 to 45% with mild systolic dysfunction and previous echo was severe systolic dysfunction with an EF of 30 to 35%. Patient appears to have not been taking her medications including any medications for the heart failure or for her blood pressure and presented with high blood pressure 206/135 mmHg. Recommend to aggressively diurese the patient and start the patient on amlodipine 10 mg once daily for now and will start beta-nidih later once the patient is adequately diuresed. No BETTY inhibitor's or ARB's in view of the SREE on CKD Patient with acute kidney injury on CKD stage IV. Nephrology was also consulted by the primary team and patient might eventually need dialysis if kidney function does not improve with diuresis. Patient has mildly elevated troponins of 0.07 and 0.08 admitted mostly secondary to acute CHF exacerbation and patient already had echocardiogram which showed mild CAD in June 2024. Patient counseled regarding quitting smoking completely as well as drug abuse Patient counseled and recommended to make sure to show for follow-up appointments with PCP, nephrology as well as cardiology. Recommended psychiatric social worker supervisor as well as case management consult for placement for this patient and also will need possible rehab at the time of discharge including drug rehab. 01/19/2025-patient did not diurese much last night and will change the patient from Lasix to Bumex 2 mg IV twice a day for now. Continue strict input output, daily weights and 2 g sodium diet. Patient overall appears to be better in the evening around send output was greater than 1 L. Kidney function today showed creatinine of 3.8 and was 4.1 yesterday. Blood pressure is in the range of 160 to 180 mmHg. Continue amlodipine for now and will restart Coreg once patient is diuresed well.Rest of the vitals stable 01/20/2025 - Patient diuresed well with Bumex yesterday and was net negative around 1 to 2 L. BUN is 83 today and creatinine of 4.0 but sodium increased to 146 and chloride is also 112. Leg edema and facial edema has improved considerably but patient appears to be intravascularly depleted but still has some extravascular fluid with 1+ leg edema. Nephrology recommended to hold the Bumex for today and also to hold the fluid restriction and will reevaluate tomorrow morning for further diuresis based on the labs. 01/21/25 - Yesterday patient did drink up to 5 L of fluid after removing the fluid restriction. She is net +4 L from yesterday and appears to be fluid overloaded Discussed with nephrology team again and patient has cardiorenal syndrome and recommended to restart IV diuresis along with fluid restriction. As patient is hyponatremic causing intravascular depletion due to aggressive diuresis will decrease the Bumex dose to 1 mg IV once daily and for now Strict input output, daily weights and 2 g sodium diet. Patient again recommended to restrict her fluid intake. Patient blood pressure continues to be elevated for now continue with amlodipine 10 mg once daily and will restart the patient Coreg which is her home medication and add hydralazine if needed no BETTY or ARB given the CKD stage IV. 01/23/2025 Currently NPO for HD cath. Continued on BUMEX 1 mg daily and fluid restriction, had 2.2L urine output, overall 4.8L positive. Weight today 63.5, same as presentation. Has bibasilar crackles on exam, but no LE edema. Satting well on room air. Renal function remains poor, CR 3.3 > 3.6, GFR 14 > 13, BUN 77. CBC reviewed and appears at baseline. LFTs wnl, glucose 206. Corrected calcium 7.5, remainder elytes normal. At this point, cardiorenal type 2 still most likely dx, as she is very dependent on diuresis, goes into fluid overload whenever diuresis discontinued. However, she has poor tolerance for diuresis with worsening renal function. Nephrology recommended ultrafiltration twice a week, agree with plan. continue diuresis as pt with good urine output, fluid restriction and daily weights. BP not well controlled, SBP 150-160s despite multiple meds, including NIFEDIPINE, CARVEDILOL and HYDRALAZINE. However, BP, will likely improve with hemodialysis. Continue avoiding BETTY and ARB's in settings of CKD stage IV. Overall, high concern for HD and medication non-compliance given her living situation. Appears primary team working on stable housing, which she will need. 01/24/2025 HD cath placed, scheduled for HD session today. had 580 cc urine output with BUMEX 1 mg. Overall 4.2 L net positive. No improvement in renal function, CR 3.8, BUN 74, EGFR 12. Magnesium 1.4, corrected calcium 8.1, remainder electrolyte WNL. CBC stable. Will continue BUMEX 1 mg daily, and HD twice a week. BP 151/92 and will likely improve with ultrafiltration. Continue with current blood pressure meds. 01/25/2025 HD session scheduled for today. BUMEX was held overnight, urine output roguhly 500 cc. Renal function showing slight improvement: BUN 64, CR 3.3, EGFR 14. Stable BP 150/86, HR 86. Currently pending outpatient HD chair placement. Will continue with BUMEX, blood pressure control and hemodialysis as needed. 01/26/2025 Doing well overall. 1.4 L fluid was removed during HD yesterday, she had roughly 500 cc of urine output this morning. Labs showed BUN 85, CR 3.1, magnesium 1.5, potassium 4.3, CBC at baseline. Primary team repleted magnesium. Will continue with hemodialysis per nephrology. BP 159/74, still elevated, increased COREG to 25 mg BID. Continue all other medications as listed. Maintain magnesium greater than 2, potassium greater than 4. 01/27/2025 - Patient continues to have hemodialysis and the patient will be likely on hemodialysis going forward. Blood pressure is better controlled after increasing the Coreg to 25 mg twice daily.Continue rest of her blood pressure medications for now and blood pressure continues to hide then patient should be started on losartan as she will be permanently on dialysis. Patient Otherwise doing well and is pending TB test results and also outpatient dialysis arrangements. 01/28/2025. Had HD session yesterday, 2.1 L removed, poor urine output, active bleeding of . Renal function showing CR 3.2, BUN 68, GFR 13, normal electrolytes. BP improved 144/75, HR 84. ? Continue with hemodialysis 01/30/2025 No improvement in renal function, continued on BUMEX and HD. BP remains elevated, discontinued CLONIDINE, started VALSARTAN 40 mg daily. May increase VASLARTAN if remain hypertensive, may consider adding SPIRONLACTONE. 01/31/2025 Had HD yesterday, CR 3.0, BUN 64. BP 140/83 before VALSARTAN, HR 76. Continue with HD. Continue with NIFEDIPINE 30 TID, HYDRALAZINE 100 TID, CARVEDILOL 25 BID, VALSARTAN 40 marek and CLONIDINE 0.1 mg BID. Again, may consider increasing VALSARTAN or adding SPIRONOLACTONE if BP remains elevated. Urine output 700 cc, continue BUMEX 1 mg daily. Per social work notes, insurance approval finalized, will likely discharge today. Management of rest of the medical conditions as per primary team and other consultants. Thank you for the consult and allowing me to participate in the care of the patient. Cardiology will continue to follow. Thank you for the opportunity to participate in the patient's care. Case was discussed with attending, Dr. Mauricio. Jacquie Eduardo DO PGYI Attending Provider Attestation/Addendum I have personally seen and examined the patient separately on the above date of service and discussed the plan of care with the resident. I reviewed the resident Dr. Jacquie Eduardo consultation progress note and agree with the resident findings and plan in the note above and have also edited the documentation to reflect my findings and plan. Pillo Mauricio M.D. Interventional Cardiology
[2025-01-31] MEDS: carVEDILOL 12.5 MG TABLET 25 MG PO (08:51)
[2025-01-31] MEDS: HEPARIN SOD INJ 5000 UNIT/ML VIAL SC (08:52)
[2025-01-31] MEDS: BUMETANIDE 0.5 MG TABLET 1 MG PO (08:52)
[2025-01-31] MEDS: VALSARTAN 40 MG TABLET PO (08:52)
[2025-01-31] MEDS: FAMOTIDINE INJ 10 MG/ML VIAL 2 ML 20 MG IVP (08:52)
--- NOTE | 2025-01-31 09:17 | ESPR_ITS ---
Documentation for date of: 01/31/25 Subjective Subjective Interval history: Ms. Freed is a 69-year-old female past medical history of HFrEF with a EF of 45 to 50%, CKD stage IV, hypertension, COPD, breast cancer status post unilateral mastectomy, meth abuse who came in because of shortness of breath. Patient was seen at bedside in the ED and was shivering because she was feeling cold. She is a poor historian and has been noncompliant with his medications as she states that she only takes her meds on and off. She does reveal that she has been using meth for about a week and the last time was this morning prior to admission. She has also been having episodes of diarrhea that were brown and nonbloody for about a week. She states that she has been eating well however that is questionable as she says her last meal was sometime yesterday in the afternoon and the only thing she had today was a sandwich given to her by the ED. In terms of her symptoms patient's main complaint was a shortness of breath with mild chest pressure and a mild abdominal tenderness however she denies any fevers, chills, flulike symptoms, nausea, vomiting or rashes. Patient does state that she has been having headaches which goes along with her uncontrolled blood pressure. The neurology team was consulted as patient's renal function is worse than usual.Renal ultrasound obtained on September this year showed bilateral renal parenchymal scar formation with right renal cortical thinning. Chloride was elevated at 117 without a bicarb of 16.4. BUN was 72 and creatinine was 4.4 from a baseline of 2.5. Lactic acid was normal at 1.3 however troponins were mildly elevated at 0.077 and BUN was greater than 30-80. UA had 2+ protein without leukocyte esterase and only rare bacteria. U-Tox was positive for meth 01/25/2025: Patient seen today at the dialysis unit found awake, alert, oriented x 3. No overnight events reported. Vitals and labs reviewed. Patient received hemodialysis today, had about 1 L removed total dialysis hours 2 hours 30 minutes postdialysis weight 61.5 kg. Blood pressure continues to be elevated Coreg adjusted from 25 mg twice daily to 12.5, added clonidine 0.1 mg to blood pressure regimen. Patient currently pending authorization for chair time for hemodialysis sessions. Will continue to follow at this time. 01/26/2025: Patient seen and examined at bedside, alert and oriented x 3. Patient received dialysis treatment yesterday, tolerated well. Patient is currently pending authorization for chair time for hemodialysis sessions. Will continue to follow patient. 01/28/2025: Patient seen and examined at bedside. Patient received dialysis treatment on 01/27/2025 for about 3 hours 1 minute, 2 L fluid removed. Patient's tuberculin skin test is negative, patient is pending chair time outpatient for hemodialysis sessions. Will continue to follow the patient. 01/29/2025: Patient seen and examined at bedside, resting comfortably. Pending outpatient dialysis placement due to insurance issues. Recommended patient attempt to sit in chair at least twice daily anticipation of discharge. 01/30/2025: Patient seen examined during dialysis, resting comfortably. Pending outpatient dialysis placement. Blood pressure continues to be difficult to control, patient noted to be on clonidine which is dialyzable. Recommend changing to RAAS system blockers such as valsartan. Sodium 140, potassium 4.8, bicarb 21.8, BUN 98, creatinine 3.4, EGFR 14. 01/31/2025: Patient seen and examined at bedside, resting comfortably. Pending placement for safe discharge, patient currently homeless. Sodium 144, potassium 4.5, bicarb 26.5, BUN 64, creatinine 3.0, EGFR 16. Will continue to monitor and provide inpatient dialysis. Recommend patient practice sodium pulleys twice daily in chair anticipation for outpatient dialysis. Clonidine changed to valsartan. Exam Vital Signs Temp Pulse Resp BP Pulse Ox O2 Del Method O2 Flow Rate 97.6 F 76 18 148/83 H 93 L Nasal Cannula 2 01/31/25 08:00 01/31/25 08:52 01/31/25 08:00 01/31/25 08:52 01/31/25 08:00 01/31/25 08:00 01/31/25 08:00 Narrative Exam GENERAL APPEARANCE: Patient seems to be comfortable, adequately hydrated and nourished. NECK: Neck supple, no JVD or bruit Patient had right breast implant. Right sided tunneled dialysis catheter in place. CARDIOVASCULAR: Heart regular, no murmurs LUNGS/CHEST: Lungs clear to auscultation bilaterally. ABDOMEN: Soft, nontender, nondistended. No masses. Normal bowel sounds. EXTREMITIES: No edema SKIN: Skin exam normal without any rashes MUSCULOSKELETAL: in bed-able to move her extremities NEUROLOGICAL : No neurological deficits Objective Labs 01/31/25 04:58 01/31/25 04:58 Labs: Laboratory Results - last 24 hr 01/31/25 04:58 WBC 6.2 RBC 3.29 L Hgb 10.4 L Hct 32.9 L MCV 100 MCH 31.6 MCHC 31.6 RDW Std Deviation 57.1 H Plt Count 212 Neut % (Auto) 56 Lymph % (Auto) 27 [place] % (Auto) 12 Eos % (Auto) 4 Baso % (Auto) 1 Neut # (Auto) 3.5 Lymph # (Auto) 1.7 [place] # (Auto) 0.8 Eos # (Auto) 0.2 Baso # (Auto) 0.0 Immature Gran # (Auto) 0.05 H Absolute Nucleated RBC 0.00 Immature Gran % 1 H Nucleated RBC % 0 Sodium 144 Potassium 4.5 Chloride 106 Carbon Dioxide 26.5 Anion Gap 12 BUN 64 H Creatinine 3.0 H Estim Creat Clear Calc 14.9 L eGFR 16 L BUN/Creatinine Ratio 21 H Glucose 115 H Calculated Osmolality 306 H Calcium 8.2 L Corrected Calcium 8.4 L Total Bilirubin < 0.2 L AST 25 ALT 32 Alkaline Phosphatase 136 H Total Protein 6.1 Albumin 3.8 Globulin 2.3 Albumin/Globulin Ratio 1.7 ABG Interpretation ABG results: 01/18/25 01/18/25 09:50 13:43 VBG pH 7.11 L 7.17 L VBG pCO2 50 39 D VBG pO2 38 57 VBG Base Excess -14 L -14 L Quality Measures Quality Measures VTE prophylaxis Advance care planning discussed with:: patient Assessment & Plan Assessment Current Active Medications: Generic Name Dose Route Start Last Admin Trade Name Freq PRN Reason Stop Dose Admin Acetaminophen 650 mg 01/18/25 14:24 01/30/25 20:32 Acetaminophen 325 Mg Tablet PO 02/17/25 14:23 650 mg Q6H PRN Administration Fever >100.4 or pain 1-3 Albuterol 2 puff 01/28/25 17:34 01/30/25 02:53 Albuterol Inh 8 Gm INH 02/27/25 17:33 2 puff Q1H PRN Administration SHORTNESS OF BREATH OR WHEEZE Bumetanide 1 mg 01/25/25 09:00 01/31/25 08:52 Bumetanide 0.5 Mg Tablet PO 02/24/25 08:59 1 mg QDAY KENNEDY Administration Carvedilol 25 mg 01/26/25 17:30 01/31/25 08:51 Carvedilol 12.5 Mg Tablet PO 02/25/25 17:29 25 mg BIDWM KENNEDY Administration Docusate Sodium 100 mg 01/18/25 14:24 Docusate Sod 100 Mg Capsule PO 02/17/25 14:23 QDAY PRN CONSTIPATION Protocol Famotidine 20 mg 01/26/25 09:00 01/31/25 08:52 Famotidine Inj 10 Mg/Ml Vial 2 Ml IVP 02/20/25 08:59 20 mg DAILY KENNEDY Administration Heparin Sodium (Porcine) 5,000 unit 01/18/25 21:00 01/31/25 08:52 Heparin Sod Inj 5000 Unit/Ml Vial SC 02/01/25 20:59 5,000 unit Q12HR KENNEDY Administration Heparin Sodium (Porcine) 3,800 unit 01/24/25 09:52 01/30/25 10:48 Heparin Sod Inj 1000 Unit/Ml Vial 10 Ml INDWELLCAT 02/07/25 09:51 3,800 unit PRN PRN Administration DIALYSIS Hydralazine HCl 100 mg 01/24/25 14:00 01/31/25 05:30 Hydralazine Hcl 25 Mg Tablet PO 02/23/25 13:59 100 mg TID KENNEDY Administration Hydralazine HCl 10 mg 01/24/25 17:04 Hydralazine Inj 20 Mg/Ml Vial IV 02/23/25 16:03 Q6H PRN SBP>160, hold if HR<60 Albumin Human 25 gm in 100 mls @ 100 mls/min 01/24/25 08:25 Albuminar-25 Ivpb IV PRN PRN DIALYSIS Metoclopramide HCl 5 mg 01/21/25 08:14 Metoclopramide Inj 5 Mg/Ml Vial 2 Ml IVP 02/20/25 08:14 Q6HR PRN nausea or vomiting Protocol Nifedipine 30 mg 01/24/25 22:00 01/31/25 05:31 Nifedipine Xl 30 Mg Tabcr PO 02/23/25 21:59 30 mg TID KENNEDY Administration Valsartan 40 mg 01/30/25 09:00 01/31/25 08:52 Valsartan 40 Mg Tablet PO 03/01/25 08:59 40 mg QDAY KENNEDY Administration Plan 69-year-old female past medical history of HFrEF with a EF of 45 to 50%, CKD stage IV, hypertension, COPD, breast cancer status post unilateral mastectomy, meth abuse admitted for acute hypoxic respiratory failure and SREE #SREE on CKD #History of CKD stage IV #Non anion gap metabolic acidosis #Hypernatremia, asymptomatic Patient presents scented with elevated creatinine of 4.0 from a baseline of 2.5 and a BUN of 72. Patient has been noncompliant with her medications She has not been taking her Lasix and her BNP is 3280. However clinically patient is dehydrated with dry mucous membranes, decreased capillary refill. Patient received 1 dose of Lasix in the ER. Patient's lactic acid was normal at 1.3. Chloride was 117 and bicarb was 16.4 with a VBG showing a pH of 7.17 She has a history of HFrEF with previous echo showing 45 to 50% EF. Likely underlying cardiorenal syndrome Acidosis likely from persistent GI loses Patient kidney function is improving, however bicarb levels decreased. Patient received IV fluids yesterday, appears volume overloaded today. Crackles, edema improved notably. However kidney function has worsened, patient now hypernatremic. Suspect overdiuresis, patient receiving 2 mg Bumex IV twice daily. Held morning dose of Bumex, recommend pausing diuresis and fluid restriction. Patient drinks 5 L of fluid over 24-hour period, with 1.5 L urinary output. No short of breath the following morning with little change in kidney function. Tunneled dialysis catheter in place, patient received hemodialysis 01/27/2025. Hepatitis panel negative. Tuberculin skin test negative. Hemodialysis twice weekly: Thursday and . ? Will continue inpatient dialysis ? Fluid restriction 1.8 L daily ? Trend renal function ? Avoid nephrotoxic medications ? Strict ZAKI's - Plan for patient to continue hemodialysis outpatient after discharge, twice weekly at [facility] #Hypertensive emergency #Troponinemia #HFrEF exacerbation #Meth abuse #COPD #Diarrhea ? Managed as per primary team Thank you for allowing us to be part of patient care during her time at [facility] Plan of care discussed with attending Dr. Pulido. Reji Mac MD PGY?1 Attending Provider Attestation/Addendum Patient currently seen and examined with resident physician Dr. Mac. Note reviewed, agree with findings and recommendations. Patient got outpatient dialysis arrangements Thursday, . She can be discharged.
--- NOTE | 2025-01-31 10:49 | PC.SS ---
SS has been working with patient and clinical manager home care on placement for 2 days now. Patient is homeless and now has new hemodialysis. Prior to hospitalization she was living in a van and occassionally staying with her friend,Jonh. Patient has income and food stamps. Patient is also on 02. SS was coordinting d/c late yesterday to a motel with boyfriend. 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 SS spoke to friend this morning who indicated he was able to pay for her stay at a motel. He could just not transport patient to hotel. Transportation had been previously arranged. This morning, SS researched homeless shelters. SS was able to speak with the [facility] and they state they have had patient at facility before and are willing to take again. It is based on bed availability. They prefer us to call back at noon today for bed. If accepted patient can stay at center for 90 days with 02 and have transport set up for dialysis. They will provide intense case management services and assist with housing after the 90 day stay. Patient already has a dialysis schedule 2 x weekly. Her friend, Jonh, is her support system and will continue to assist as needed. [facility] @ [phone]
--- NOTE | 2025-01-31 11:56 | ESDS_ITS ---
<Statement entered by Alisia Maharaj DO - 02/01/25 07:41> I, Alisia Maharaj DO, attest that I was physically present for the rubin portions of the service and evaluated the patient with the resident and I reviewed and discussed the case with the resident and agree with the resident's findings and plans of care as documented above <Statement entered by Ayush Grossman MD - 01/31/25 15:28> Patient was examined with the team including attending physician. Note reviewed, I agree with the discharge plan as documented. - Ayush Grossman MD PGY2 Disclaimer: The document may contain phonetic/typographic errors due to voice recognition software. These errors are purely due to imperfections in the software program and should not be misconstrued in any way to compromise the substance of the patient's medical care during this visit. Planned Discharge Date 01/31/25 DS: Providers Provider Date of admission: 01/18/25 14:19 Primary care physician: Physician No Primary/Family Admitting Provider: Alisia Maharaj DO Attending Provider on Admission: Alisia Maharaj DO Consults: 01/18/25 14:19 Referral Physical Therapy Routine Comment: Physician Instructions: 01/18/25 14:27 Consult to Cardiology Routine Comment: CHF, Cardiorenal syndrome Consulting Provider: Pillo Mauricio 01/18/25 14:28 Consult to Nephrology Routine Comment: Cardiorenal, SREE Consulting Provider: Victoria Pulido 01/18/25 23:19 [facility] Referral - Safety Routine Comment: Positive screening for safety needs. 01/27/25 12:28 Referral Registered Dietitian Routine Comment: needs education on diet restrictions from RD Attending Provider on DC: Alisia Maharaj DO Discharging Provider: Anuel Thomas MD Anticipated date of discharge: 01/31/25 DS: Diagnosis Problem List Completed Was Problem List Reviewed/Reconciled?: Yes Hospital Course Hospital Course Hospital course: 69 year old F with past medical history significant for hypertension, CKD, breast cancer s/p resection, COPD, CHF presents with chief complaint of shortness of breath, negative for metabolic acidosis with SREE on CKD. Chest x- ray showed some vascular congestion. Patient down graded from CKD Stage IV -> Stage V during hospitalization. Nephrology was consulted, appreciate recommendations to start HD given ESRD. she is advised to follow up outpatient with exhauster Dr Pulido to continue OP hemodialysis. At this time patient is medically stable for discharge. Follow-up with PCP within 1 week from discharge. Stop Lasix. Start Bumetanide 1 mg daily for fluid overload. Take the following blood pressure medicines for resistant hypertension : Carvedilol 25 mg twice a day Losartan 40 mg daily Clonidine 0.1 mg twice a day Hydralazine 100 mg 3 times a day Nifedipine 20 mg 3 times a day Follow-up with nephrology Dr. Pulido outpatient after discharge, to continue dialysis. Stop stop taking amlodipine, will plan, lisinopril, Lasix, tolterodine. Continue taking Trelegy inhaler for COPD. Should symptoms recur or worsen patient is instructed to return to the ED. Problem List: #ESRD on HD #Cardiorenal syndrome #Hypertensive urgency-resolved #Resistant HTN #Acute decompensated heart failure #HFmEF 45-50% #Elevated troponins, likely Type II #COPD #Right shoulder, AC separation #Polysubstance abuse #Acute diarrhea-resolved Case discussed with my senior Dr. Grossman and my attending Dr. Carol Ann Thomas MD PGY-1 Status at Discharge Functional status at discharge: independent ambulation Overall status at discharge: patient is back to baseline Time Spent with Patient Time attestation: Total time spent providing and/or coordinating discharge services: Time spent: Greater than 30 minutes Exam Vital Signs Temp Pulse Resp BP Pulse Ox O2 Del Method O2 Flow Rate 97.3 F 66 18 144/81 H 92 L Room Air 2 01/31/25 11:48 01/31/25 11:48 01/31/25 11:48 01/31/25 11:48 01/31/25 11:48 01/31/25 11:48 01/31/25 08:00 Narrative Exam Physical Exam GENERAL: NAD, AAOx3 HEENT: Moist mucosa. Eyes open, symmetrical, & clear CARDIO: Heart RRR, no obvious murmurs PULM: No noted coughing/dyspnea CTA B/L, no R/W/R GI: Abdomen soft, nondistended, no pain on palpation. BSx4 SKIN/MSK/EXT: No wounds/rashes/edema/amputations, no pain on palpation. Pedal pulses present B/L NEURO: AAOx3, no focal neuro deficits, able to move all 4 extremities Discharge Plan Plan Patient Disposition: HOME (Self Care) Disposition Comment: Hospitalist admit Patient condition on transfer: Stable Care Plan Goals: - Follow-up with PCP within 1 week from discharge - Stop Lasix. Start Bumetanide 1 mg daily for fluid overload - Take the following blood pressure medicines for resistant hypertension: Carvedilol 25 mg twice a day Losartan 40 mg daily Clonidine 0.1 mg twice a day Hydralazine 100 mg 3 times a day Nifedipine 20 mg 3 times a day - Follow-up with nephrology Dr. Pulido outpatient after discharge, to continue dialysis - Stop stop taking amlodipine, will plan, lisinopril, Lasix, tolterodine - Continue taking Trelegy inhaler for COPD - Return to ED if symptoms worsen Prescriptions/Referrals Prescriptions/Med Rec: New carvedilol 25 mg tablet 25 mg PO BID 30 Days Qty: 60 0RF Rx Instructions: must administer with a meal/food clonidine HCl 0.1 mg tablet 0.1 mg PO BID 30 Days Qty: 60 0RF bumetanide 1 mg tablet 1 mg PO DAILY 30 Days Qty: 30 0RF valsartan 40 mg tablet 40 mg PO QDAY 30 Days Qty: 30 0RF hydralazine 100 mg tablet 100 mg PO TID 30 Days Qty: 90 0RF nifedipine 90 mg tablet extended release 90 mg PO QDAY 30 Days Qty: 30 0RF Continued Trelegy Ellipta 200-62.5-25 mcg blister with device 2 inh inhalation BID Qty: 60 0RF polyethylene glycol 3350 [Miralax] 17 gram/dose powder 4 g PO QDAY Qty: 119 0RF Discontinued bupropion HCl 150 mg Tablet Sustained-Release 12 Hr 150 mg PO BID tolterodine 4 mg Capsule,Extended Release 24hr 4 mg PO QDAY amlodipine 10 mg tablet 10 mg PO QDAY Qty: 30 1RF prednisone 50 mg tablet 50 mg PO QDAY Qty: 4 0RF lisinopril 5 mg tablet 5 mg PO QDAY Qty: 30 0RF carvedilol 12.5 mg Tablet 12.5 mg PO BIDWM 30 Days Qty: 60 2RF furosemide [Lasix] 40 mg tablet 40 mg PO QDAY Qty: 30 2RF lisinopril 5 mg tablet 5 mg PO QDAY Qty: 30 0RF Referrals: No Primary/Family,Physician [Primary Care Provider] - Patient/Caregiver Discharge Instructions Discharge Activity: resume usual activities Other Discharge Activity Instructions:: Patient will need to continue twice weekly dialysis sessions at [facility] Mon. and Wed. at 9a.m. Start date February 02, #[phone]. Education Materials: Hemodialysis Print Language: Wolof Stand Alone Forms: Fern Award Info., Patient Portal Info Letter Discharge Order Discharge Orders: Discharge (Routine); Ordered 01/31/25 Ordered By: Anuel Thomas Quality Discharge Quality Measures VTE prophylaxis
== END 2025-01-31 12:56 | disposition home or self-care (01) | DRG 280 ==
LOC: SERX 13:26 → SERHOLD 14:34 → S2NX 19:55 → S3NX 01-29 01:00
PROVIDERS: Internal Medicine; Radiology Diagnostic Radiology; Student in an Organized Health Care Education/Training Program; Admitting Provider Internal Medicine; Emergency Provider Emergency Medicine; Visit Provider Internal Medicine
DX: I13.2 Hypertensive heart and chronic kidney disease with heart failure and with stage 5 chronic kidney disease, or end stage renal disease (principal); I50.23 Acute on chronic systolic (congestive) heart failure; I21.A1 Myocardial infarction type 2; J11.00 Influenza due to unidentified influenza virus with unspecified type of pneumonia; N18.6 End stage renal disease; N17.9 Acute kidney failure, unspecified; I16.1 Hypertensive emergency; E87.0 Hyperosmolality and hypernatremia; E87.1 Hypo-osmolality and hyponatremia; J44.0 Chronic obstructive pulmonary disease with (acute) lower respiratory infection; J44.1 Chronic obstructive pulmonary disease with (acute) exacerbation; Z59.00 Homelessness unspecified; E87.29 Other acidosis; F17.210 Nicotine dependence, cigarettes, uncomplicated; F15.10 Other stimulant abuse, uncomplicated; R19.7 Diarrhea, unspecified; E86.0 Dehydration; F19.10 Other psychoactive substance abuse, uncomplicated; F12.10 Cannabis abuse, uncomplicated; E78.5 Hyperlipidemia, unspecified; F10.10 Alcohol abuse, uncomplicated; I1A.0 Resistant hypertension; I25.10 Atherosclerotic heart disease of native coronary artery without angina pectoris; J44.9 Chronic obstructive pulmonary disease, unspecified; K74.60 Unspecified cirrhosis of liver; K21.9 Gastro-esophageal reflux disease without esophagitis; T50.1X6A Underdosing of loop [high-ceiling] diuretics, initial encounter; S43.109A Unspecified dislocation of unspecified acromioclavicular joint, initial encounter; R09.02 Hypoxemia; Z85.3 Personal history of malignant neoplasm of breast; Z90.13 Acquired absence of bilateral breasts and nipples; Z98.82 Breast implant status; Z91.148 Patient's other noncompliance with medication regimen for other reason; E87.8 Other disorders of electrolyte and fluid balance, not elsewhere classified; Z63.4 Disappearance and death of family member; Z79.899 Other long term (current) drug therapy; Z99.2 Dependence on renal dialysis; Z79.51 Long term (current) use of inhaled steroids; W19.XXXA Unspecified fall, initial encounter
CPT/HCPCS: 36415; 71045; 73030; 76937; 77001; 80053; 80069; 80074; 80307; 80320; 81001; 82270; 82803; 83605; 83735; 83880; 84100; 84145; 84484; 85025; 85610; 85730; 86580; 86703; 87015; 87040; 87045; 87046; 87205; 87329; 87338; 87449; 87493; 87811; 87899; 93005; 93971; 94640; 94644; 94664; 96365; 96366; 96375; 97162; 99291; A9270; C1750; C1894; J0360; J1643; J1644; J1938; J2470; J2919; J3010; J3475; J3490; J7030; J7040; J7050; Q4081; G0480

== ENCOUNTER 2025-01-31 15:18 | Observation (INO) | payer MEDICARE, MEDICAID, SELFPAY ==
[2025-01-31] VITALS (9 sets, daily range): BP systolic 142–176; BP diastolic 80–88; PULSE 71–82; RESP 16–94; TEMP 36.4–36.9; O2SAT 94–100; BMI 24.0
--- NOTE | 2025-01-31 15:24 | EKG_ITS ---
[facility] Test Date: 2025-01-31 Pat Name: CHEMA DIAZ Department: Room: - Gender: Female Peer Educator: : 1955 Requested By: ED Temporary Provider Order Number: [id number] Reading MD: ED Temporary Provider Measurements Intervals [place] Rate: 66 P: 48 DC: 167 QRS: -19 QRSD: 98 T: 114 QT: 425 QTc: 448 Interpretive Statements SINUS RHYTHM LEFT VENTRICULAR HYPERTROPHY AND ST-T CHANGE [VOLTAGE CRITERIA PLUS ST/T ABNORMALITY] Compared to ECG 01/18/2025 09:45:44 No significant changes /store/S0/[id number].pdf
--- NOTE | 2025-01-31 15:49 | XR_ITS ---
Examination: PA lateral chest 2 views TECHNIQUE: Upright PA lateral chest 2 views Exam date and time: January 31, 2025 1537 hours Comparison January 23, 2025 INDICATIONS: Shortness of breath beginning one week ago. FINDINGS: Mild enlargement cardiac contour Prominent vascular congestion. Suspicious for early septal edema at the lung bases Right axillary surgical clips Right internal jugular dialysis catheter tip right atrium IMPRESSION: Mild heart failure
--- NOTE | 2025-01-31 15:50 | PD.EDRME ---
Rapid Medical Screening Exam RME Arrival date/time: 01/31/25 15:18 This is a 69-year-old female that was just discharged from the hospital approximately 3 hours ago. Patient is complaining of shortness of breath. Patient has a history of hypertension, CKD, breast cancer s/p resection, COPD, CHF, SREE on CKD. Patient was recently started on hemodialysis per patient. Patient states that they discharged her to a senior care and shortly after they sent her to the senior care that senior care? Patient's family members at the bedside saying that they dumped her in the front yard of this facility. Family member states that patient was gasping for air when he arrived. I have greeted and performed a focused initial assessment of this patient. Initial appropriate labs ordered at this time. A comprehensive ED assessment and evaluation of the patient and analysis of all test and completion of medical decision making process will be conducted by additional ED provider. Chief Complaint: Shortness of Breath/Dyspnea Time Seen by Provider: 01/31/25 15:49 Vital signs: Vital Signs Temperature 97.6 F 01/31/25 15:38 Pulse Rate 76 01/31/25 15:38 Respiratory Rate 20 01/31/25 15:38 Blood Pressure 142/80 H 01/31/25 15:38 Pulse Oximetry (%) 97 01/31/25 15:38 Oxygen Delivery Method Room Air 01/31/25 15:38
[2025-01-31 16:45] LABS: Basophils # (Auto) 0.1 Thou/mm3 (0.0-0.2); Basophils % (Auto) 1 % (0-2.5); Eosinophils # (Auto) 0.2 Thou/mm3 (0.0-0.5); Eosinophils % (Auto) 3 % (0-10); Hematocrit 35.2 % (36.0-46.0); Immature Granulocytes % (Auto) 1 % (0-0); Immature Granulocytes Auto 0.06 Thou/mm3 (0.00-0.00); Lymphocytes # (Auto) 1.7 Thou/mm3 (1.0-4.8); Lymphocytes % (Auto) 24 % (10-50); Mean Corpuscular HGB Conc 31.3 g/dl (31.0-37.0); Mean Corpuscular Hemoglobin 31.4 pg (25.0-35.0); Mean Corpuscular Volume 101 fL (80-100); Monocytes # (Auto) 0.8 Thou/mm3 (0.0-0.8); Monocytes % (Auto) 10 % (0-12); Neutrophils # (Auto) 4.5 Thou/mm3 (1.8-7.7); Neutrophils % (Auto) 61 % (37-80); Nucleated Red Blood Cell % 0 /100 WBC (0); Platelet Count 237 Thou/mm3 (140-440); RDW Standard Deviation 57.3 fL (36.4-46.3); White Blood Count 7.3 Thou/mm3 (3.6-11.0)
[2025-01-31 17:03] LABS: B-Type Natriuretic Peptide 783 pg/mL (0-100)
[2025-01-31 17:08] LABS: Alanine Aminotransferase 38 U/L (10-49); Albumin, Serum 4.2 gm/dL (3.4-4.8); Albumin/Globulin Ratio 1.6 (1.2-2.2); Alkaline Phosphatase 135 U/L (46-116); Anion Gap 14 (7-16); Aspartate Amino Transferase 29 U/L (0-34); BUN/Creatinine Ratio 22 Ratio (12-20); Bilirubin,Total < 0.2 mg/dL (0.3-1.2); Blood Urea Nitrogen 71 mg/dL (9-23); Calcium 8.4 mg/dL (8.3-10.6); Calcium (Corrected) 8.4 mg/dL (8.5-10.1); Carbon Dioxide 24.4 mMol/L (20.0-31.0); Chloride 105 mMol/L (98-107); Creatinine (Component) 3.2 mg/dL (0.6-1.3); Estimated Creatinine Clearance 13.9 mL/min (>60); Globulin 2.7 gm/dL (2.3-3.5); Glucose 88 mg/dL (74-106); Osmolality,Calculated 304 (275-295); Sodium 143 mMol/L (136-145); Total Protein 6.9 gm/dL (5.7-8.2); Troponin I 0.033 ng/mL (0.0-0.045); eGFR 15 See Note
--- NOTE | 2025-01-31 19:38 | EDNOTE_ITS ---
ED SOB =RME/HPI General Chief Complaint: Shortness of Breath/Dyspnea Stated Complaint: DIFF BREATHING, RECENT ADMIT Time Seen by Provider: 01/31/25 15:49 Arrival date/time: 01/31/25 15:18 RME / HPI RME / HPI Narrative: 01/31/25 The patient is a 69-year-old female with significant past medical history of resident hypertension, CKD stage V recently started on hemodialysis, breast cancer s/p resection, COPD, CHF presented to ED with chief complaint of SOB. The patient was [facility] to [facility] home this afternoon, but patient was not given a bed at the facility, and started developing SOB, and return back to emergency department. Patient also reported that she has been supposed to get her outpatient hemodialysis, and has been scheduled. She denied any headache, lightheadedness, sore throat, chest pain, abdominal pain, any changes in bowel or bladder habit, leg swelling, fever or chills, or nausea or vomiting. Related Data Previous Rx's ?Medication ?Instructions ?Recorded fluticasone fur. 200 mcg-umeclid 2 inh inhalation BID #60 ea 10/26/24 62.5 mcg-vilant 25 mcg inhalat.powder (Trelegy Ellipta) polyethylene glycol 3350 17 4 g PO QDAY #119 grams 08/15 gram/dose oral powder (Miralax) bumetanide 1 mg tablet 1 mg PO DAILY 1 month #30 ta bs 01/30/25 carvedilol 25 mg tablet 25 mg PO BID 1 month #60 tab s 01/30/25 clonidine HCl 0.1 mg tablet 0.1 mg PO BID 1 month #60 tabs 01/30/25 hydralazine 100 mg tablet 100 mg PO TID 1 month #90 ta bs 01/30/25 valsartan 40 mg tablet 40 mg PO QDAY 1 month #30 ta bs 01/30/25 nifedipine 90 mg tablet,extended 90 mg PO QDAY 1 month #30 tabs 01/31/25 release Allergies Allergy/AdvReac Type Severity Reaction Status Date / Time iodine Allergy Severe Rash Verified 01/31/25 15:21 Review of Systems Review of Systems Systems Reviewed: All systems reviewed, normal except as documented ED Exam Narrative Physical exam: General: No acute distress, Alert and Oriented x 3 HEENT: Moist mucous membranes, oropharynx clear Neck: Supple, No masses, No JVD CVS: S1S2 Regular rate and rhythm, No murmurs, rubs or gallops Lungs: Bilateral wheezing throughout the lung shin, mild to moderate bibasilar crackles with moderate rhonchi. Abd: Soft, NT/ND, +BS, no organomegaly Ext: No edema, warm and well perfused Skin: No rash Psych: Tired appearing Course Quality Measures none Orders Category Date Time Status Admit to Inpatient Status Routine Admission 01/31/25 22:43 Active Patient Condition Routine Admission 01/31/25 22:42 Ordered Bedside COVID-19 Antigen Test NOW Care 01/31/25 22:51 Active COVID-19 Screening Questionnaire NOW Care 01/31/25 22:48 Active Healthcare Financial Analyst Q4H START 00 Care 01/31/25 20:39 Active EKG (ED ONLY) *Do not use* NOW Care 01/31/25 15:24 Completed EKG (ED ONLY) *Do not use* NOW Care 01/31/25 15:49 Completed Insert IV NOW Care 01/31/25 20:39 Active Intake and Output QSHIFT Care 01/31/25 22:45 Ordered Miscellaneous Nursing Order NOW Care 01/31/25 22:42 Active Notify provider NEEDED Care 01/31/25 22:42 Active Obtain weight NOW Care 01/31/25 22:42 Active Sequential Compression Device QSHIFT Care 01/31/25 22:42 Active Diet Renal Diet 01/31/25 Dinner Active EKG (ED Only) Stat Exams 01/31/25 15:24 Draft EKG (ED Only) Stat Exams 01/31/25 15:49 Ordered XR chest 2V Stat Exams 01/31/25 15:49 Completed BNP [B-Type Natriuretic Peptide] Stat Lab 01/31/25 16:20 Completed Basic Metabolic Panel AM DRAW Lab 02/01/25 05:00 Ordered Basic Metabolic Panel AM DRAW Lab 02/02/25 05:00 Ordered Basic Metabolic Panel AM DRAW Lab 02/03/25 05:00 Ordered CBC AM DRAW Lab 02/01/25 05:00 Ordered CBC AM DRAW Lab 02/02/25 05:00 Ordered CBC AM DRAW Lab 02/03/25 05:00 Ordered CBC Stat Lab 01/31/25 16:20 Completed Comprehensive Metabolic Panel Stat Lab 01/31/25 16:20 Completed Lipid Panel AM DRAW Lab 02/01/25 05:00 Ordered Liver Panel AM DRAW Lab 02/01/25 05:00 Ordered MRSA Nasal Screen Routine Lab 01/31/25 22:42 Ordered Magnesium AM DRAW Lab 02/01/25 05:00 Ordered Phosphorous AM DRAW Lab 02/01/25 05:00 Ordered Prothrombin Time with INR AM DRAW Lab 02/01/25 05:00 Ordered Thyroid Stimulating Hormone AM DRAW Lab 02/01/25 05:00 Ordered Troponin I Stat Lab 01/31/25 16:20 Completed Urinalysis Routine Lab 01/31/25 22:42 Ordered Acetaminophen Tab [Tylenol Tab] Med 01/31/25 22:42 Active 650 mg PO Q6H PRN Albuterol/Ipratr Rt Dee [Duoneb Rt Dee] Med 01/31/25 19:36 Discontinued 3 ml INH X1 ONE Bumetanide Inj [Bumex Inj] Med 02/01/25 09:00 Ordered 1 mg IVP QDAY Bumetanide Inj [Bumex Inj] Med 01/31/25 19:36 Discontinued 2 mg IVP X1 ONE Bumetanide [Bumex] Med 01/31/25 20:04 Discontinued 2 mg PO X1 ONE Losartan [Cozaar] Med 02/01/25 09:00 Ordered 50 mg PO QDAY Ondansetron Inj [Zofran Inj] Med 01/31/25 22:42 Active 4 mg IV Q6H PRN Senna [Senokot] Med 01/31/25 22:42 Active 2 tab PO BID PRN carVEDILOL [Coreg] Med 02/01/25 09:00 Ordered 25 mg PO BID carVEDILOL [Coreg] Med 01/31/25 21:06 Discontinued 25 mg PO X1 ONE cloNIDine HCL [Catapres] Med 02/01/25 09:00 Ordered 0.1 mg PO BID cloNIDine HCL [Catapres] Med 01/31/25 21:06 Discontinued 0.1 mg PO X1 ONE hydrALAZINE HCL [Apresoline] Med 02/01/25 06:00 Ordered 100 mg PO TID predniSONE Med 01/31/25 20:08 Discontinued 40 mg PO X1 ONE Code Status Routine Oth 01/31/25 22:42 Ordered Oxygen Delivery DAILY RT 01/31/25 22:42 Active Vital Signs Vital signs: Vital Signs Temperature 97.6 F 01/31/25 15:38 Pulse Rate 76 01/31/25 15:38 Respiratory Rate 20 01/31/25 15:38 Blood Pressure 142/80 H 01/31/25 15:38 Pulse Oximetry (%) 97 01/31/25 15:38 Oxygen Delivery Method Room Air 01/31/25 15:38 Shortness of Breath / Dyspnea MDM Narrative MDM Narrative:: The patient is a 69-year-old female with significant past medical history of resident hypertension, CKD stage V recently started on hemodialysis, breast cancer s/p resection, COPD, CHF presented to ED with chief complaint of SOB. The patient was discharged to [facility] home this afternoon, but patient was not given a bed at the facility, and started developing SOB, and return back to emergency department. Patient also reported that she has been supposed to get her outpatient hemodialysis, and has been scheduled. She denied any headache, lightheadedness, sore throat, chest pain, abdominal pain, any changes in bowel or bladder habit, leg swelling, fever or chills, or nausea or vomiting. The patient's initial vitals were BP 142/80, pulse 76, temperature 97.6, saturating 97% on room air. Labs revealed hemoglobin 11.0, MCV 101, CMP revealed BUN 71, creatinine 3.2, GFR 15, serum osmolality 304, corrected calcium 8.4, ALP 135, BNP 783, chest x-ray revealed mild heart failure, and EKG revealed sinus rhythm with left ventricular hypertrophy. Patient data External records reviewed:: [facility] previous records Clinical information provided by:: patient Social determinants that could affect healthcare access:: housing Patient has the following chronic illnesses:: See above How is presenting disease/condition affected by chronic disease/condition?: exacerbated by Evaluation data The following diagnostics were reviewed and interpreted by me:: lab results, radiology exam(s) and EKG tracing(s) Lab and/or radiology exams considered but not ordered:: None Interpretation Summary: See above Medications / Prescriptions Medications or Prescriptions considered but not ordered:: None Medication administrations:: Medication Administration History Acetaminophen (Acetaminophen 325 Mg Tablet) 650 mg PO Q6H PRN PRN Reason: PAIN OR FEVER > 101 Stop: 03/02/25 22:41 Bumetanide (Bumetanide Inj 0.25 Mg/Ml Vial 4 Ml) 1 mg IVP QDAY [facility] Stop: 03/03/25 08:59 Carvedilol (Carvedilol 12.5 Mg Tablet) 25 mg PO BID [facility] Stop: 03/03/25 08:59 Clonidine (Clonidine Hcl 0.1 Mg Tablet) 0.1 mg PO BID [facility] Stop: 03/03/25 08:59 Hydralazine HCl (Hydralazine Hcl 25 Mg Tablet) 100 mg PO TID [facility] Stop: 03/03/25 05:59 Losartan Potassium (Losartan Potassium 25 Mg Tablet) 50 mg PO QDAY [facility] Stop: 03/03/25 08:59 Ondansetron HCl (Ondansetron Inj 2 Mg/Ml Inj 2 Ml) 4 mg IV Q6H PRN; Protocol PRN Reason: NAUSEA OR VOMITING Stop: 03/02/25 22:41 Sennosides (Senna Tablet) 2 tab PO BID PRN; Protocol PRN Reason: CONSTIPATION Stop: 03/02/25 22:41 Discontinued Medications Albuterol/Ipratropium (Albuterol/Ipratropium (Duoneb) Rt Dee 3 Ml Nebu) 3 ml INH X1 ONE Stop: 01/31/25 19:37 Last Admin: 01/31/25 19:50 Dose: 3 ml Documented By: DM Bumetanide (Bumetanide Inj 0.25 Mg/Ml Vial 4 Ml) 2 mg IVP X1 ONE Stop: 01/31/25 19:37 Last Admin: 01/31/25 20:03 Dose: Not Given Documented By: BD Non-Admin Reason: Patient Refused Bumetanide (Bumetanide 0.5 Mg Tablet) 2 mg PO X1 ONE Stop: 01/31/25 20:05 Last Admin: 01/31/25 20:30 Dose: 2 mg Documented By: BD Carvedilol (Carvedilol 12.5 Mg Tablet) 25 mg PO X1 ONE Stop: 01/31/25 21:07 Last Admin: 01/31/25 21:55 Dose: 25 mg Documented By: BD Clonidine (Clonidine Hcl 0.1 Mg Tablet) 0.1 mg PO X1 ONE Stop: 01/31/25 21:07 Last Admin: 01/31/25 21:57 Dose: 0.1 mg Documented By: BD Prednisone (Prednisone 20 Mg Tablet) 40 mg PO X1 ONE Stop: 01/31/25 20:09 Last Admin: 01/31/25 20:20 Dose: 40 mg Documented By: BD See above Consultations Consultation(s) initiated? (list below): Yes Consultation #1 (Physician, Specialty, Details): Hospitalist team Dr. Canales Diagnosis Shortness of Breath Differential Diagnosis: acute exacerbation of chronic obstructive airways disease and congestive heart failure Most likely diagnosis given after review of the tests above:: Acute exacerbation of COPD Admission Indicated Admission indicated?: indicated Admission Request Was there a request for admission?: Yes Admission Attestation Admission request attestation: Discussed case with Dr. Canales from Hospitalist service regarding admission. Discussed patients ED course, exam findings, labs, and radiology results. The Hospitalist agrees to accept the patient for admission. Disposition Plan Disposition Plan: Admit Discharge Plan Plan Patient Disposition: Admit Acute Care w/in Hospital Prescriptions/Referrals Prescriptions/Med Rec: No Action Allanlerose Ellipta 200-62.5-25 mcg blister with device 2 inh inhalation BID Qty: 60 0RF polyethylene glycol 3350 [Miralax] 17 gram/dose powder 4 g PO QDAY Qty: 119 0RF carvedilol 25 mg tablet 25 mg PO BID 30 Days Qty: 60 0RF Rx Instructions: must administer with a meal/food clonidine HCl 0.1 mg tablet 0.1 mg PO BID 30 Days Qty: 60 0RF bumetanide 1 mg tablet 1 mg PO DAILY 30 Days Qty: 30 0RF valsartan 40 mg tablet 40 mg PO QDAY 30 Days Qty: 30 0RF hydralazine 100 mg tablet 100 mg PO TID 30 Days Qty: 90 0RF nifedipine 90 mg tablet extended release 90 mg PO QDAY 30 Days Qty: 30 0RF Referrals: No Primary/Family,Physician [Primary Care Provider] - In 1 week Problem List Clinical Impression: Acute exacerbation of chronic obstructive pulmonary disease Patient/Caregiver Discharge Instructions Print Language: Bengali Stand Alone Forms: Fern Award Info., Patient Portal Info Letter
[2025-01-31] MEDS: ALBUTEROL/IPRATROPIUM (Duoneb) RT SOL 3 ML NEBU INH (19:50)
--- NOTE | 2025-01-31 20:02 | PC.NURSE ---
pt does not iv bumex she does not want iv notified dr. goldsmith he will change to oral
--- NOTE | 2025-01-31 20:19 | PC.NURSE ---
called pharmacy to bring oral bumex
[2025-01-31] MEDS: predniSONE 20 MG TABLET 40 MG PO (20:20)
[2025-01-31] MEDS: BUMETANIDE 0.5 MG TABLET 2 MG PO (20:30)
--- NOTE | 2025-01-31 21:33 | PC.NURSE ---
called house sup to bring coreg from floor
[2025-01-31] MEDS: carVEDILOL 12.5 MG TABLET 25 MG PO (21:55)
[2025-01-31] MEDS: cloNIDine HCL 0.1 MG TABLET PO (21:57)
--- NOTE | 2025-01-31 23:00 | PD.RESHP ---
Documentation for date of: 01/31/25 [facility] History of Present Illness History of present illness: The patient is a 69-year-old female with a past medical history of end-stage renal disease on hemodialysis Thursday and , hypertension, CHF, history of breast cancer s/p resection, COPD, methamphetamine abuse disorder who was discharged from the hospital earlier today, the patient went to the nursing home, pending placement at SNF, was started having shortness of breath and some chest discomfort and wheezing and decided to come to the emergency room. The patient denies any fever, did endorse some cough without sputum, patient reports that she will be placed at [facility] temporarily until placement. The patient's initial vitals were BP 142/80, pulse 76, temperature 97.6, saturating 97% on room air. Labs revealed hemoglobin 11.0, MCV 101, CMP revealed BUN 71, creatinine 3.2, GFR 15, serum osmolality 304, corrected calcium 8.4, ALP 135, BNP 783, chest x-ray revealed mild heart failure, and EKG revealed sinus rhythm with left ventricular hypertrophy. The patient was given DuoNebs x 1, prednisone p.o. 40 mg x 1, bumetanide 2 mg x 1 carvedilol 25 mg x 1 and clonidine 0.1 mg x 1, patient reported improvement in shortness of breath. Review of Systems Review of Systems Systems Reviewed: All systems reviewed, normal except as documented Past Medical History Past Medical History NEUROLOGIC: Negative Neurological Disorders CARDIAC: Positive Cardiac Disorders, Congestive Heart Failure and Hypertension RESPIRATORY: Positive Chronic Obstructive Pulmonary Disease (COPD) and Bronchitis GASTROINTESTINAL: Positive Gastrointestinal Disorders, Gastrointestinal Bleed and Ulcer GENITOURINARY: Positive Genitourinary Disorders and Renal Disease (KIDNEY FAILURE) REPRODUCTIVE: Positive Breast Cancer and Previous Pregnancies MUSCULOSKELETAL: Positive Musculoskeletal Disorders and Arthritis ENDOCRINE: Negative Endocrine Disorders, Diabetes Mellitus Type 1 or Diabetes Mellitus Type 2 HEMATOLOGIC: Positive Blood Disorders and Anemia PSYCHO/SOCIAL: Positive Recreational Drug Use, Depression, Anxiety and Post Traumatic Stress Disorder OTHER HISTORY: Positive Cosmetic Surgery (breast cancer surgery cosmetic. ), Falls, Blood Transfusions, Chicken Pox and Breast Cancer; Negative Autoimmune Disease, Blood Transfusion Reaction or Anesthesia Reactions Family History FAMILY HISTORY: Positive Family Gastrointestinal Problems and Family Cancer; Negative Family Respiratory Disorders, Family Cardiac Disorders, Family Surgery or Family Anesthesia Reaction Surgical History SURGICAL: Positive Mastectomy, Lumpectomy (R MASTECTOMY 1992) and Section Social History SMOKING STATUS: Former smoker SECOND HAND EXPOSURE: No Exam Vital Signs Temp Pulse Resp BP Pulse Ox O2 Del Method 98.3 F 71 16 156/88 H 95 Room Air 01/31/25 22:49 01/31/25 22:50 01/31/25 22:50 01/31/25 22:49 01/31/25 22:49 01/31/25 22:49 Narrative Exam Physical Exam GENERAL: NAD, AAOx3 HEENT: Moist mucosa. Eyes open, symmetrical, & clear CARDIO: Heart RRR, no obvious murmurs PULM: Wheezing bilateral GI: Abdomen soft, nondistended, no pain on palpation. BSx4 SKIN/MSK/EXT: No wounds/rashes/edema/amputations, no pain on palpation. Pedal pulses present B/L , right breast implant in place. NEURO: AAOx3, no focal neuro deficits, able to move all 4 extremities Results: Labs 01/31/25 16:20 01/31/25 16:20 Labs: Short CBC 01/31/25 Range/Units 16:20 WBC 7.3 (3.6-11.0) Thou/mm3 Hgb 11.0 L (12.0-16.0) g/dL Hct 35.2 L (36.0-46.0) % Plt Count 237 (140-440) Thou/mm3 BMP 01/31/25 16:20 Sodium 143 Potassium 5.0 D Chloride 105 Carbon Dioxide 24.4 BUN 71 H Creatinine 3.2 H Glucose 88 Calcium 8.4 Cardiac Enzymes 01/31/25 Range/Units 16:20 Troponin I 0.033 (0.0-0.045) ng/mL Liver Function 01/31/25 Range/Units 16:20 Total Bilirubin < 0.2 L (0.3-1.2) mg/dL AST 29 (0-34) U/L ALT 38 (10-49) U/L Alkaline Phosphatase 135 H (46-116) U/L Albumin 4.2 (3.4-4.8) gm/dL Quality Measures Quality Measures none Advance care planning discussed with:: patient Medications Home Medications and Allergies Allergies Allergy/AdvReac Type Severity Reaction Status Date / Time iodine Allergy Severe Rash Verified 01/31/25 15:21 Visit Medications Acetaminophen (Acetaminophen 325 Mg Tablet) 650 mg PO Q6H PRN PRN Reason: PAIN OR FEVER > 101 Stop: 03/02/25 22:41 Bumetanide (Bumetanide Inj 0.25 Mg/Ml Vial 4 Ml) 1 mg IVP QDAY [facility] Stop: 03/03/25 08:59 Carvedilol (Carvedilol 12.5 Mg Tablet) 25 mg PO BID [facility] Stop: 03/03/25 08:59 Clonidine (Clonidine Hcl 0.1 Mg Tablet) 0.1 mg PO BID [facility] Stop: 03/03/25 08:59 Hydralazine HCl (Hydralazine Hcl 25 Mg Tablet) 100 mg PO TID [facility] Stop: 03/03/25 05:59 Hydralazine HCl (Hydralazine Inj 20 Mg/Ml Vial) 10 mg IV Q6HR PRN PRN Reason: SBP > 170 Stop: 03/02/25 22:57 Losartan Potassium (Losartan Potassium 25 Mg Tablet) 50 mg PO QDAY [facility] Stop: 03/03/25 08:59 Ondansetron HCl (Ondansetron Inj 2 Mg/Ml Inj 2 Ml) 4 mg IV Q6H PRN; Protocol PRN Reason: NAUSEA OR VOMITING Stop: 03/02/25 22:41 Sennosides (Senna Tablet) 2 tab PO BID PRN; Protocol PRN Reason: CONSTIPATION Stop: 03/02/25 22:41 Discontinued Medications Albuterol/Ipratropium (Albuterol/Ipratropium (Duoneb) Rt Dee 3 Ml Nebu) 3 ml INH X1 ONE Stop: 01/31/25 19:37 Last Admin: 01/31/25 19:50 Dose: 3 ml Bumetanide (Bumetanide Inj 0.25 Mg/Ml Vial 4 Ml) 2 mg IVP X1 ONE Stop: 01/31/25 19:37 Last Admin: 01/31/25 20:03 Dose: Not Given Bumetanide (Bumetanide 0.5 Mg Tablet) 2 mg PO X1 ONE Stop: 01/31/25 20:05 Last Admin: 01/31/25 20:30 Dose: 2 mg Carvedilol (Carvedilol 12.5 Mg Tablet) 25 mg PO X1 ONE Stop: 01/31/25 21:07 Last Admin: 01/31/25 21:55 Dose: 25 mg Clonidine (Clonidine Hcl 0.1 Mg Tablet) 0.1 mg PO X1 ONE Stop: 01/31/25 21:07 Last Admin: 01/31/25 21:57 Dose: 0.1 mg Prednisone (Prednisone 20 Mg Tablet) 40 mg PO X1 ONE Stop: 01/31/25 20:09 Last Admin: 01/31/25 20:20 Dose: 40 mg Assessment & Plan Plan The patient is a 69-year-old female with a past medical history of end-stage renal disease on hemodialysis Thursday and , hypertension, CHF, history of breast cancer s/p resection, COPD, methamphetamine abuse disorder who was discharged from the hospital earlier today, the patient went to the nursing home, pending placement at SNF, was started having shortness of breath and some chest discomfort and wheezing and decided to come to the emergency room. The patient denies any fever, did endorse some cough without sputum, patient [facility]. #COPD exacerbation - Duo nebz - Prednisone 40mg qday - Azithromycin 250mg qday - oxygen as needed, titrate o2 sat 88-92 % #End-stage renal disease on hemodialysis - Hemodilaysis per schedule - consider nephrology consult #Resistant hypertension #History of CHF - resume home medications Plan of care discussed with attending Nirmal PGY2 Attending Provider Attestation/Addendum 69-year-old female who was just discharged today. The patient has COPD, CHF, end-stage renal disease on hemodialysis, breast cancer. Patient presented with shortness of breath. She is admitted for COPD exacerbation, CHF. Chest x-ray showed septal edema at the bases, mild pulmonary vascular congestion, cardiomegaly. Treatment plan as above.
[2025-02-01] VITALS (11 sets, daily range): BP systolic 158–185; BP diastolic 82–94; PULSE 69–75; RESP 16–94; TEMP 35.9–36.6; O2SAT 93–100; BMI 23.6
[2025-02-01] MEDS: AZITHROMYCIN INJ 250 MG in SODIUM CHLORIDE 0.9% 250 ML 250 ML IV (02:20)
[2025-02-01] MEDS: hydrALAZINE HCL 25 MG TABLET 100 MG PO (05:12)
[2025-02-01 05:43] LABS: Basophils % (Auto) 0 % (0-2.5); Eosinophils % (Auto) 0 % (0-10); Hematocrit 32.2 % (36.0-46.0); Hemoglobin 10.3 g/dL (12.0-16.0); Immature Granulocytes % (Auto) 1 % (0-0); Immature Granulocytes Auto 0.09 Thou/mm3 (0.00-0.00); Lymphocytes # (Auto) 0.9 Thou/mm3 (1.0-4.8); Lymphocytes % (Auto) 13 % (10-50); Mean Corpuscular Hemoglobin 31.7 pg (25.0-35.0); Mean Corpuscular Volume 99 fL (80-100); Monocytes # (Auto) 0.1 Thou/mm3 (0.0-0.8); Monocytes % (Auto) 2 % (0-12); Neutrophils % (Auto) 83 % (37-80); Nucleated Red Blood Cell % 0 /100 WBC (0); Platelet Count 225 Thou/mm3 (140-440); RDW Standard Deviation 55.7 fL (36.4-46.3); Red Blood Count 3.25 Miln/mm3 (4.00-5.20); White Blood Count 7.2 Thou/mm3 (3.6-11.0)
[2025-02-01 05:54] LABS: INR 1.1 (0.9-1.3); Prothrombin Time 11.8 Seconds (9.0-12.2)
[2025-02-01 06:15] LABS: Alanine Aminotransferase 31 U/L (10-49); Albumin, Serum 3.9 gm/dL (3.4-4.8); Alkaline Phosphatase 107 U/L (46-116); Anion Gap 13 (7-16); Aspartate Amino Transferase 20 U/L (0-34); BUN/Creatinine Ratio 25 Ratio (12-20); Bilirubin,Direct < 0.1 mg/dL (0.0-0.3); Bilirubin,Total 0.2 mg/dL (0.3-1.2); Blood Urea Nitrogen 79 mg/dL (9-23); Calcium 8.4 mg/dL (8.3-10.6); Carbon Dioxide 22.4 mMol/L (20.0-31.0); Cardiac Risk Estimate 2.5 RATIO (3.7-5.6); Chloride 108 mMol/L (98-107); Cholesterol 188 mg/dL (132-200); Creatinine (Component) 3.1 mg/dL (0.6-1.3); Estimated Creatinine Clearance 14.4 mL/min (>60); Glucose 124 mg/dL (74-106); HDL Cholesterol 76 mg/dL (40-60); LDL Cholesterol,Calculated 104 mg/dL (0-130); Magnesium 1.6 mg/dL (1.6-2.6); Osmolality,Calculated 309 (275-295); Phosphorous 4.5 mg/dL (2.4-5.1); Sodium 143 mMol/L (136-145); Thyroid Stimulating Hormone 0.96 uIU/mL (0.55-4.78); Total Protein 6.3 gm/dL (5.7-8.2); Triglycerides 42 mg/dL (30-150); eGFR 15 See Note
[2025-02-01] MEDS: ALBUTEROL/IPRATROPIUM (Duoneb) RT SOL 3 ML NEBU INH ×2 (06:54→13:00)
[2025-02-01] MEDS: BUMETANIDE INJ 0.25 MG/ML VIAL 4 ML 1 MG IVP (08:13)
[2025-02-01] MEDS: predniSONE 5 MG TABLET 40 MG PO (08:14)
[2025-02-01] MEDS: cloNIDine HCL 0.1 MG TABLET PO (08:15)
[2025-02-01] MEDS: SENNA/DOCUSATE SOD 1 TAB TABLET PO (08:15)
[2025-02-01] MEDS: carVEDILOL 12.5 MG TABLET 25 MG PO (08:15)
[2025-02-01] MEDS: LOSARTAN POTASSIUM 25 MG TABLET 50 MG PO (08:15)
[2025-02-01 08:31] LABS: Collection Type, Urine Clean Catch
[2025-02-01 09:28] LABS: Bacteria,Urine Rare; Bilirubin,Urine Negative (Negative); Blood,Urine Negative (Negative); Clarity,Urine Clear (Clear/Hazy); Color,Urine Lt-Yellow (Lt Yel-Yel); Glucose, Urine Trace (Negative); Ketones,Urine Negative (Negative); Leukocyte Esterase,Urine Negative (Negative); Nitrite,Urine Negative (Negative); PH,Urine 5.5 (5.0-7.0); Protein,Urine 1+ (Neg - Trace); RBC,Urine 2 /hpf (0-3); Specific Gravity,Urine 1.017 (1.001-1.035); Squamous Epithelial Cell,Urine < 1 /hpf (0-5); Urobilinogen,Urine Negative mg/dL (0.0-1.0); WBC,Urine 2 /hpf (0-5)
[2025-02-01] MEDS: NIFEdipine XL 30 MG TABCR 90 MG PO (10:20)
[2025-02-01] MEDS: MethylPREDNISolone SOD SUCC 62.5 MG/ML 2ML VIAL 125 MG IVP (10:20)
--- NOTE | 2025-02-01 11:15 | PC.SS ---
SS met with patient who was readmitted for sob. Early afternoon yesterday patient was discharged to the [facility]. Admin. states they had to do an intake for patient. They called her name at 1:20p.m. patient had left. Patient was later admitted to hospital. Patient's bed was given away as she had left. SS met with patient at bedside to discuss alternate options. Patient will d/c today to her boyfriend's house at: [address]. She will alternate between this home and the [facility]. SS also discussed living at [facility]. SS submitted insurance verification to [employer] @ [facility]. Patient agreeable. SS will complete [facility] intake form and submit. They will be available tomorrow to do a 1:1 assessment screen. Bed will be available Thursday. Patient's boyfriend was at bedside. He confirmed patient has over 1300$ on her card and Food stamps. SS provided again another resource packet with the contact information for the [facility] transportation and other resources. Patient to be discharged today. SS will set up uber once d/c orders /paperwork are ready. She will start dialysis tomorrow.
--- NOTE | 2025-02-01 13:40 | ESDS_ITS ---
<Statement entered by Alisia Maharaj DO - 02/01/25 14:35> I, Alisia Maharaj DO, attest that I was physically present for the rubin portions of the service and evaluated the patient with the resident and I reviewed and discussed the case with the resident and agree with the resident's findings and plans of care as documented above <Statement entered by Ayush Grossman MD - 02/01/25 13:50> Patient was examined with the team including attending physician. Note reviewed, I agree with the discharge plan as documented. - Ayush Grossman MD PGY2 Disclaimer: The document may contain phonetic/typographic errors due to voice recognition software. These errors are purely due to imperfections in the software program and should not be misconstrued in any way to compromise the substance of the patient's medical care during this visit. Planned Discharge Date 02/01/25 DS: Providers Provider Date of admission: 01/31/25 22:42 Primary care physician: Physician No Primary/Family Admitting Provider: Raymundo Ho MD Attending Provider on Admission: Alisia Maharaj Consults: 02/01/25 00:36 Health Equity Referral - Knowledge Deficit Routine Comment: Positive screening for knowledge deficit needs. Health Equity Referral - Safety Routine Comment: Positive screening for safety needs. 02/01/25 00:37 Referral Physical Therapy Routine Comment: Physician Instructions: Referral Registered Dietitian Routine Comment: Referral Respiratory Therapy Routine Comment: 02/01/25 07:48 Consult to Nephrology Stat Comment: Consulting Provider: Victoria Pulido Attending Provider on DC: Carol Ann Nguyễn Discharging Provider: Anuel Thomas MD Anticipated date of discharge: 02/01/25 DS: Diagnosis Problem List Completed Was Problem List Reviewed/Reconciled?: Yes Hospital Course Hospital Course Hospital course: 69 year old F with past medical history significant for hypertension, ESRD started on previous admission, breast cancer s/p resection, COPD, CHF presents with chief complaint of shortness of breath. Patient was admitted for COPD exacerbation as an observation. Patient was given Duonebs and steroid therapy. She is advised to follow up outpatient with spray i painter Dr Pulido to continue OP hemodialysis. At this time patient is medically stable for discharge. Follow-up with PCP within 1 week from discharge. Stop Lasix. Start Bumetanide 1 mg daily for fluid overload. Take the following blood pressure medicines for resistant hypertension : Carvedilol 25 mg twice a day Losartan 40 mg daily Clonidine 0.1 mg twice a day Hydralazine 100 mg 3 times a day Nifedipine 20 mg 3 times a day Follow-up with nephrology Dr. Pulido outpatient after discharge, to continue dialysis. Stop stop taking amlodipine, will plan, lisinopril, Lasix, tolterodine. Continue taking Trelegy inhaler for COPD. Should symptoms recur or worsen patient is instructed to return to the ED. Problem List: #Acute COPD Exacerbation #ESRD on HD #Resistant HTN #HFmEF 45-50% #Polysubstance abuse Case discussed with my senior Dr. Grossman and my attending Dr. Carol Ann Thomas MD PGY-1 Status at Discharge Functional status at discharge: independent ambulation Overall status at discharge: patient is back to baseline Time Spent with Patient Time attestation: Total time spent providing and/or coordinating discharge services: Time spent: Greater than 30 minutes Exam Vital Signs Temp Pulse Resp BP Pulse Ox O2 Del Method 97.7 F 71 18 184/82 H 100 Room Air 02/01/25 11:15 02/01/25 13:00 02/01/25 13:00 02/01/25 11:15 02/01/25 13:00 02/01/25 11:15 Narrative Exam Physical Exam GENERAL: NAD, AAOx3 HEENT: Moist mucosa. Eyes open, symmetrical, & clear CARDIO: Heart RRR, no obvious murmurs PULM: No noted coughing/dyspnea CTA B/L, no R/W/R GI: Abdomen soft, nondistended, no pain on palpation. BSx4 SKIN/MSK/EXT: No wounds/rashes/edema/amputations, no pain on palpation. Pedal pulses present B/L NEURO: AAOx3, no focal neuro deficits, able to move all 4 extremities Discharge Plan Plan Patient Disposition: HOME (Self Care) Patient condition on transfer: Stable Care Plan Goals: Follow-up with PCP within 1 week from discharge. Stop Lasix. Start Bumetanide 1 mg daily for fluid overload. Take the following blood pressure medicines for resistant hypertension: Carvedilol 25 mg twice a day Losartan 40 mg daily Clonidine 0.1 mg twice a day Hydralazine 100 mg 3 times a day Nifedipine 20 mg 3 times a day Follow-up with nephrology Dr. Pulido outpatient after discharge, to continue dialysis. Stop stop taking amlodipine, will plan, lisinopril, Lasix, to lterodine. Continue taking Trelegy inhaler for COPD. Should symptoms recur or worsen patient is instructed to return to the ED. Prescriptions/Referrals Prescriptions/Med Rec: New Trelegy Ellipta 100-62.5-25 mcg blister with device 1 inh inhalation QDAY 30 Days Qty: 28 0RF albuterol sulfate 90 mcg/actuation HFA aerosol inhaler 2 puff inhalation Q6H PRN (Reason: shortness of breath or wheezing) 30 Days Qty: 6.7 0RF methylprednisolone [Medrol (Mehdi)] 4 mg tablets,dose pack 4 mg PO QAM Qty: 21 0RF Continued carvedilol 25 mg tablet 25 mg PO BID 30 Days Qty: 60 0RF Rx Instructions: must administer with a meal/food clonidine HCl 0.1 mg tablet 0.1 mg PO BID 30 Days Qty: 60 0RF bumetanide 1 mg tablet 1 mg PO DAILY 30 Days Qty: 30 0RF valsartan 40 mg tablet 40 mg PO QDAY 30 Days Qty: 30 0RF hydralazine 100 mg tablet 100 mg PO TID 30 Days Qty: 90 0RF nifedipine 90 mg tablet extended release 90 mg PO QDAY 30 Days Qty: 30 0RF furosemide 20 mg tablet 20 mg PO .qod Referrals: No Primary/Family,Physician [Primary Care Provider] - Patient/Caregiver Discharge Instructions Print Language: Nigerian Stand Alone Forms: Fern Award Info., Patient Portal Info Letter, Work/Release Restrictions Discharge Order Discharge Orders: Discharge (Routine); Ordered 02/01/25 Ordered By: Anuel Thomas Quality Discharge Quality Measures VTE prophylaxis
--- NOTE | 2025-02-01 14:02 | PD.RESCONSUL ---
HPI Data of Consult Consult date: 02/01/25 Requesting Physician: Raymundo Ho MD Admitting Provider: Raymundo Ho MD Attending Provider: Raymundo Ho MD Primary Care Provider: Physician No Primary/Family Consult Narrative Reason for consult: SREE-- On dialysis History of present illness: Ms. Freed is a 69-year-old female with a past medical history of end-stage renal disease on hemodialysis Thursday and , hypertension, CHF, history of breast cancer s/p resection, COPD, methamphetamine abuse disorder who was discharged from the hospital yesterday. The patient went to the longterm, pending placement at [facility], was started having shortness of breath and some chest discomfort and wheezing and decided to come to the emergency room. The patient denies any fever, did endorse some cough without sputum, patient reports that she will be placed at [facility] center temporarily until placement. The patient's initial vitals were BP 142/80, pulse 76, temperature 97.6, saturating 97% on room air. Labs revealed hemoglobin 11.0, MCV 101, CMP revealed BUN 71, creatinine 3.2, GFR 15, serum osmolality 304, corrected calcium 8.4, ALP 135, BNP 783, chest x-ray revealed mild heart failure, and EKG revealed sinus rhythm with left ventricular hypertrophy. The patient was given DuoNebs x 1, prednisone p.o. 40 mg x 1, bumetanide 2 mg x 1 carvedilol 25 mg x 1 and clonidine 0.1 mg x 1, patient reported improvement in shortness of breath. Nephrology consulted for management of patient's dialysis. Patient recently started on temporary dialysis twice weekly. Last dialysis was on Thursday, next session scheduled for . Sodium 143, potassium 5.0, bicarb 22.4, BUN 79, creatinine 3.1, EGFR 15. Patient seen examined at bedside, resting comfortably, does not appear to be significantly fluid overloaded. cc:: cc: Raymundo Ho MD Review of Systems Review of Systems Systems Reviewed: All systems reviewed, normal except as documented Exam Vital Signs Temp Pulse Resp BP Pulse Ox O2 Del Method 97.7 F 71 18 184/82 H 100 Room Air 02/01/25 11:15 02/01/25 13:00 02/01/25 13:00 02/01/25 11:15 02/01/25 13:00 02/01/25 11:15 Narrative Exam Physical Exam GENERAL: NAD, AAOx3 HEENT: Moist mucosa. Eyes open, symmetrical, & clear CARDIO: Heart RRR, no obvious murmurs PULM: No noted coughing/dyspnea CTA B/L, no R/W/R GI: Abdomen soft, nondistended, no pain on palpation. BSx4 SKIN/MSK/EXT: No wounds/rashes/edema/amputations, no pain on palpation. Pedal pulses present B/L NEURO: AAOx3, no focal neuro deficits, able to move all 4 extremities Results Labs 02/01/25 05:05 02/01/25 05:05 Labs: Short CBC 01/31/25 02/01/25 Range/Units 16:20 05:05 WBC 7.3 7.2 (3.6-11.0) Thou/mm3 Hgb 11.0 L 10.3 L (12.0-16.0) g/dL Hct 35.2 L 32.2 L (36.0-46.0) % Plt Count 237 225 (140-440) Thou/mm3 BMP 01/31/25 02/01/25 16:20 05:05 Sodium 143 143 Potassium 5.0 D 5.0 Chloride 105 108 H Carbon Dioxide 24.4 22.4 BUN 71 H 79 H Creatinine 3.2 H 3.1 H Glucose 88 124 H Calcium 8.4 8.4 Cardiac Enzymes 01/31/25 Range/Units 16:20 Troponin I 0.033 (0.0-0.045) ng/mL Liver Function 01/31/25 02/01/25 Range/Units 16:20 05:05 Total Bilirubin < 0.2 L 0.2 L (0.3-1.2) mg/dL Direct Bilirubin < 0.1 (0.0-0.3) mg/dL AST 29 20 (0-34) U/L ALT 38 31 (10-49) U/L Alkaline Phosphatase 135 H 107 D (46-116) U/L Albumin 4.2 3.9 (3.4-4.8) gm/dL Urine 02/01/25 Range/Units 08:15 Urine Color Lt-Yellow (Lt Yel-Yel) Urine Clarity Clear (Clear/Hazy) Urine pH 5.5 (5.0-7.0) Ur Specific Superior 1.017 (1.001-1.035) Urine Protein 1+ A (Neg - Trace) Urine Glucose (UA) Trace (Negative) Quality Measures Quality Measures VTE prophylaxis Advance care planning discussed with:: patient Medications Home Medications and Allergies Home Medications ?Medication ?Instructions ?Recorded ?Confirmed ?Type furosemide 20 mg tablet 20 mg PO .qod 02/01/25 02/01/25 History Allergies Allergy/AdvReac Type Severity Reaction Status Date / Time iodine Allergy Severe Rash Verified 01/31/25 15:21 Visit Medications Acetaminophen (Acetaminophen 325 Mg Tablet) 650 mg PO Q6H PRN PRN Reason: PAIN OR FEVER > 101 Stop: 03/02/25 22:41 Albuterol/Ipratropium (Albuterol/Ipratropium (Duoneb) Rt Dee 3 Ml Nebu) 3 ml INH Q6HRRT [facility] Stop: 03/03/25 12:59 Last Admin: 02/01/25 13:00 Dose: 3 ml Bumetanide (Bumetanide Inj 0.25 Mg/Ml Vial 4 Ml) 1 mg IVP QDAY [facility] Stop: 03/03/25 08:59 Last Admin: 02/01/25 08:13 Dose: 1 mg Carvedilol (Carvedilol 12.5 Mg Tablet) 25 mg PO BID [facility] Stop: 03/03/25 08:59 Last Admin: 02/01/25 08:15 Dose: 25 mg Clonidine (Clonidine Hcl 0.1 Mg Tablet) 0.1 mg PO BID [facility] Stop: 03/03/25 08:59 Last Admin: 02/01/25 08:15 Dose: 0.1 mg Guaifenesin/Dextromethorphan (Guaifenesin/Dm Tablet) 1 each PO BID PRN PRN Reason: COUGH Stop: 03/03/25 09:53 Hydralazine HCl (Hydralazine Hcl 25 Mg Tablet) 100 mg PO TID [facility] Stop: 03/03/25 05:59 Last Admin: 02/01/25 05:12 Dose: 100 mg Hydralazine HCl (Hydralazine Inj 20 Mg/Ml Vial) 10 mg IV Q6HR PRN PRN Reason: SBP > 170 Stop: 03/02/25 22:57 Azithromycin 250 mg/ Sodium (Chloride) 250 mls @ 250 mls/hr IV QDAY@0200 [facility] Stop: 02/09/25 01:59 Losartan Potassium (Losartan Potassium 25 Mg Tablet) 50 mg PO QDAY [facility] Stop: 03/03/25 08:59 Last Admin: 02/01/25 08:15 Dose: 50 mg Nifedipine (Nifedipine Xl 30 Mg Tabcr) 90 mg PO QDAY [facility] Stop: 03/03/25 09:59 Last Admin: 02/01/25 10:20 Dose: 90 mg Ondansetron HCl (Ondansetron Inj 2 Mg/Ml Inj 2 Ml) 4 mg IV Q6H PRN; Protocol PRN Reason: NAUSEA OR VOMITING Stop: 03/02/25 22:41 Prednisone (Prednisone 5 Mg Tablet) 40 mg PO QDAY [facility] Stop: 02/07/25 23:15 Last Admin: 02/01/25 08:14 Dose: 40 mg Sennosides (Senna Tablet) 2 tab PO BID PRN; Protocol PRN Reason: CONSTIPATION Stop: 03/02/25 22:41 Sennosides (Senna/Docusate Sod 1 Tab Tablet) 1 tab PO QDAY [facility]; Protocol Stop: 03/03/25 08:59 Last Admin: 02/01/25 08:15 Dose: 1 tab Discontinued Medications Albuterol/Ipratropium (Albuterol/Ipratropium (Duoneb) Rt Dee 3 Ml Nebu) 3 ml INH X1 ONE Stop: 01/31/25 19:37 Last Admin: 01/31/25 19:50 Dose: 3 ml Albuterol/Ipratropium (Albuterol/Ipratropium (Duoneb) Rt Dee 3 Ml Nebu) 3 ml INH Q8HRRT [facility] Stop: 03/03/25 06:59 Last Admin: 02/01/25 06:54 Dose: 3 ml Albuterol/Ipratropium (Albuterol/Ipratropium (Duoneb) Rt Dee 3 Ml Nebu) 3 ml INH Q6HRRT [facility] Stop: 03/03/25 09:59 Bumetanide (Bumetanide Inj 0.25 Mg/Ml Vial 4 Ml) 2 mg IVP X1 ONE Stop: 01/31/25 19:37 Last Admin: 01/31/25 20:03 Dose: Not Given Bumetanide (Bumetanide 0.5 Mg Tablet) 2 mg PO X1 ONE Stop: 01/31/25 20:05 Last Admin: 01/31/25 20:30 Dose: 2 mg Carvedilol (Carvedilol 12.5 Mg Tablet) 25 mg PO X1 ONE Stop: 01/31/25 21:07 Last Admin: 01/31/25 21:55 Dose: 25 mg Clonidine (Clonidine Hcl 0.1 Mg Tablet) 0.1 mg PO X1 ONE Stop: 01/31/25 21:07 Last Admin: 01/31/25 21:57 Dose: 0.1 mg Azithromycin 250 mg/ Sodium (Chloride) 250 mls @ 250 mls/hr IV X1 ONE Stop: 02/01/25 00:29 Last Admin: 02/01/25 02:20 Dose: 250 mls/hr Methylprednisolone Sodium Succinate (Methylprednisolone Sod Succ 62.5 Mg/Ml 2ml Vial) 125 mg IVP X1 ONE Stop: 02/01/25 09:39 Last Admin: 02/01/25 10:20 Dose: 125 mg Prednisone (Prednisone 20 Mg Tablet) 40 mg PO X1 ONE Stop: 01/31/25 20:09 Last Admin: 01/31/25 20:20 Dose: 40 mg Assessment & Plan Plan 69-year-old female with a past medical history of end-stage renal disease on hemodialysis Thursday and , hypertension, CHF, history of breast cancer s/p resection, COPD, methamphetamine abuse disorder who presented for shortness of breath and some chest discomfort and wheezing. Nephrology consulted for management of dialysis. #Hemodialysis - Hemodilaysis per schedule - Renally dose meds - avoid nephrotoxins #COPD exacerbation #Resistant hypertension #History of CHF Management as per the primary team. Thank you for allowing us to precipitate care of this patient. Plan of care discussed with attending Dr. Pulido. Reji Mac MD PGY?1 Attending Provider Attestation/Addendum Patient seen and examined with resident physician Dr. Burgos. Note reviewed, agree with findings and recommendations. Patient admitted for social reasons-need for placement. Renal consultation requested for need for dialysis. Next scheduled dialysis for tomorrow.
--- NOTE | 2025-02-01 14:27 | PC.PT ---
Attempt to initiate PT evaluation, but patient already ambulate to use the restroom. No further needs at this time. Skilled PT not indicated at this time. Dr. Maharaj made aware. Will cancel PT evaluation.
--- NOTE | 2025-02-01 15:54 | PC.SS ---
[facility] called to reschedule patient's dialysis time. Patient will not have an o/p dialysis schedule of every /Thursday from 9am-12. Start time at 9a.m. SS provided this information to patient's friend, Jonh. SS had previously scheduled transport through [facility] with a trip# [id number] and requested Jonh to make changes. He was agreeable. SS updated dialysis center with Jonh's contact number as well.
== END 2025-02-01 15:46 | disposition home or self-care (01) ==
LOC: SERX 23:00 → S3SX 02-01 00:04 → SERHOLD 02-01 09:43 → S3SX 02-01 09:43
PROVIDERS: Nurse Practitioner Family; Student in an Organized Health Care Education/Training Program; Admitting Provider Internal Medicine; Emergency Provider Emergency Medicine; Visit Provider Internal Medicine
DX: J44.1 Chronic obstructive pulmonary disease with (acute) exacerbation (principal); E11.22 Type 2 diabetes mellitus with diabetic chronic kidney disease; I13.2 Hypertensive heart and chronic kidney disease with heart failure and with stage 5 chronic kidney disease, or end stage renal disease; I1A.0 Resistant hypertension; M19.90 Unspecified osteoarthritis, unspecified site; N17.9 Acute kidney failure, unspecified; N18.6 End stage renal disease; Z85.3 Personal history of malignant neoplasm of breast; Z87.891 Personal history of nicotine dependence; Z99.2 Dependence on renal dialysis; I50.30 Unspecified diastolic (congestive) heart failure; F19.10 Other psychoactive substance abuse, uncomplicated
CPT/HCPCS: 36415; 71046; 80048; 80053; 80061; 80076; 81001; 83735; 83880; 84100; 84443; 84484; 85025; 85610; 87081; 87811; 93005; 94640; 99285; A9270; G0378; J0456; J2919; J3490; J7050; J7512

== ENCOUNTER 2025-02-10 11:12 | Inpatient (IN) | payer MEDICARE, MEDICAID, SELFPAY ==
[2025-02-10] VITALS (21 sets, daily range): BP systolic 131–189; BP diastolic 79–118; PULSE 71–90; RESP 11–94; TEMP 36.3–37.1; O2SAT 93–98; BMI 24.7; BMI 23.4; BMI 23.3
--- NOTE | 2025-02-10 11:34 | PD.EDRECHK ---
ED Recheck Abnl Lab Rx-RME/HPI General Chief Complaint: Recheck/Abnormal Lab/Rx Stated Complaint: MISSED DIALYSIS TODAY; SOB & WEAKNESS SINCE AM Time Seen by Provider: 02/10/25 11:25 Arrival date/time: 02/10/25 11:12 RME / HPI RME / HPI narrative: 69-year-old female patient came in asking for hemodialysis. Patient scheduled for hemodialysis at 9 AM today however he missed the dialysis since she had no ride.. On my evaluation patient only complaint is generalized weakness severity mild. Patient is ambulatory. Denies any shortness of breath denies any cough denies any chest pain denies any other complaints no medication was taken prior to arrival. Related Data Home Medications ?Medication ?Instructions ?Recorded ?Confirmed furosemide 20 mg tablet 20 mg PO .qod 02/01/25 02/01/25 Previous Rx's ?Medication ?Instructions ?Recorded bumetanide 1 mg tablet 1 mg PO DAILY 1 month #30 tabs 01/30/25 carvedilol 25 mg tablet 25 mg PO BID 1 month #60 tabs 01/30/25 clonidine HCl 0.1 mg tablet 0.1 mg PO BID 1 month #60 tabs 01/30/25 hydralazine 100 mg tablet 100 mg PO TID 1 month #90 tabs 01/30/25 valsartan 40 mg tablet 40 mg PO QDAY 1 month #30 tabs 01/30/25 nifedipine 90 mg tablet,extended 90 mg PO QDAY 1 month #30 tabs 01/31/25 release albuterol sulfate 90 mcg/actuation 2 puff inhalation Q6H PRN 02/01/25 aerosol inhaler shortness of breath or wheezing 1 month #6.7 grams fluticasone fur. 100 mcg-umeclid 1 inh inhalation QDAY 1 month #28 02/01/25 62.5 mcg-vilant 25 mcg ea inhalat.powder (Trelegy Ellipta) methylprednisolone 4 mg tablets in 4 mg PO QAM #21 tabs 02/01/25 a dose pack (Medrol (Mehdi)) Allergies Allergy/AdvReac Type Severity Reaction Status Date / Time iodine Allergy Severe Rash Verified 02/10/25 11:17 Review of Systems Review of Systems Narrative Review of Systems: Review of system reviewed and within normal limits except mentioned in HPI ED Exam Narrative Physical exam: VITAL SIGNS: Reviewed. GENERAL APPEARANCE: Alert and interactive, follows commands, no acute distress, HEAD AND FACE: Non-traumatic. ENT: PERRL, pink conjunctivitis, eyelid no trauma, Mucous membrane moist. NECK: Supple, nontender, no nuchal rigidity. CHEST: No tenderness, no crepitus, no paradoxical movement, no retractions. LUNGS: Clear, well ventilated, symmetric, no rales, no wheezing, no ronchi, no stridor, good breath sounds bilaterally. HEART: Regular rate, regular rhythm, no murmur, no gallops. ABDOMEN: Soft, positive bowel sounds, nondistended, no guarding, nontender, no rebound, no masses, RECTAL: Deferred. GENITAL: Deferred. NEUROLOGICAL: Gross motor function intact sensory function intact, Appropriate for age. MUSCULOSKELETAL: low back nontender, full range of motion. EXTREMITIES: Nontender, full range of motion. SKIN: Color pink, dry, no rash, no lacerations, no abrasions, no contusions. LYMPHATICS: Deferred. Course Quality Measures none Orders Category Date Time Status COVID-19 Screening Questionnaire NOW Care 02/10/25 16:20 Active Decision to Admit X1 Care 02/10/25 16:20 Active EKG (ED ONLY) *Do not use* NOW Care 02/10/25 11:58 Completed Hemodialysis Urgent Care 02/10/25 16:45 Active Consult to Nephrology Stat Cons 02/10/25 15:49 Ordered Diet Regular Diet 02/10/25 Dinner Active EKG (ED Only) Stat Exams 02/10/25 11:57 Draft XR cervical spine 2-3V Stat Exams 02/10/25 11:56 Completed XR chest 1V Stat Exams 02/10/25 11:56 Completed CBC [CBC] Stat Lab 02/10/25 12:08 Completed CMP [Comprehensive Metabolic Panel] Stat Lab 02/10/25 12:08 Completed Drug Screen,Urine Stat Lab 02/10/25 14:26 Completed UA, C/S IF [Urinalysis, C/S if Indicated] Stat Lab 02/10/25 14:26 Completed Calcium Gluc/Ns 1000MG Ivpb [Calcium Gluc/Ns 1000mg Med 02/10/25 14:30 Discontinued Ivpb] 1,000 mg in 50 ml IV Q1H Calcium Gluconate 10% Inj Med 02/10/25 14:20 Discontinued 2 gm IV X1 ONE Epoetin Kaden Inj [Procrit Inj] Med 02/10/25 20:00 Once 10,000 unit SC X1 ONE Vital Signs Vital signs: Vital Signs Temperature 98.0 F 02/10/25 11:22 Pulse Rate 73 02/10/25 11:22 Respiratory Rate 18 02/10/25 11:22 Blood Pressure 146/79 H 02/10/25 11:22 Pulse Oximetry (%) 98 02/10/25 11:22 Oxygen Delivery Method Room Air 02/10/25 11:22 Recheck / Abnormal Lab / Rx MDM Narrative MDM Narrative:: 69-year-old female patient came in asking for hemodialysis. Patient scheduled for hemodialysis at 9 AM today however he missed the dialysis since she had no ride.. On my evaluation patient only complaint is generalized weakness severity mild. Patient is ambulatory. Denies any shortness of breath denies any cough denies any chest pain denies any other complaints no medication was taken prior to arrival. I spoke with patient's sliver lap machine tender Dr. Pulido, she told me to admit the patient for hemodialysis Patient's workup is significant for hemoglobin of 10.3, hematocrit of 29.9 chloride 110 carbon dioxide 16.1 anion gap of 17 BUN of 71 calcium 6.6 corrected calcium 6.6 urinalysis no UTI chest x-ray showed mild CHF. X-ray of the cervical spine came back unremarkable. Patient received calcium gluconate IV Case discussed with hospitalist who admitted the patient Patient data External records reviewed:: None Clinical information provided by:: patient Social determinants that could affect healthcare access:: none Patient has the following chronic illnesses:: ESRD How is presenting disease/condition affected by chronic disease/condition?: exacerbated by Evaluation data The following diagnostics were reviewed and interpreted by me:: lab results and radiology exam(s) Lab and/or radiology exams considered but not ordered:: None Interpretation Summary: See results MDM Medications / Prescriptions Medications or Prescriptions considered but not ordered:: None Medication administrations:: Medication Administration History Epoetin Kaden (Epoetin Kaden Inj 1,000 Unit/0.05 Ml Unit) 10,000 unit SC X1 ONE Stop: 02/10/25 20:01 Discontinued Medications Calcium Gluconate (Calcium Gluconate 10% Inj 1 Gm/10 Ml Vial) 2 gm IV X1 ONE Stop: 02/10/25 14:21 Last Admin: 02/10/25 15:24 Dose: Not Given Documented By: ELENA Non-Admin Reason: Allergy Calcium Gluconate/Sodium Chloride (Calcium Gluc/Ns 1000mg Ivpb) 1,000 mg in 50 mls @ 50 mls/hr IV Q1H [facility] Stop: 02/10/25 16:29 Last Admin: 02/10/25 16:18 Dose: 50 mls/hr Documented By: Infusion: 02/10/25 16:13 Dose: Infused Documented By: Admin: 02/10/25 15:13 Dose: 50 mls/hr Documented By: ELENA Calcium gluconate, Consultations Consultation(s) initiated? (list below): Yes Consultation #1 (Physician, Specialty, Details): Dr Puliod, sliver lap machine tender thank you Diagnosis Recheck Differential Diagnosis: other (ESRD needing hemodialysis, hypocalcemia, homelessness) Most likely diagnosis given after review of the tests above:: ESRD needing hemodialysis hypocalcemia Admission Indicated Admission indicated?: not indicated Admission Request Was there a request for admission?: Yes Admission Attestation Admission request attestation: Discussed case with [Dr. Claudio] from Hospitalist service regarding admission. Discussed patients ED course, exam findings, labs, and radiology results. The Hospitalist [agrees to accept the patient for admission. Disposition Plan Disposition Plan: Admit Discharge Plan Plan Patient Disposition: Admit Acute Care w/in Hospital Prescriptions/Referrals Prescriptions/Med Rec: No Action carvedilol 25 mg tablet 25 mg PO BID 30 Days Qty: 60 0RF Rx Instructions: must administer with a meal/food clonidine HCl 0.1 mg tablet 0.1 mg PO BID 30 Days Qty: 60 0RF bumetanide 1 mg tablet 1 mg PO DAILY 30 Days Qty: 30 0RF valsartan 40 mg tablet 40 mg PO QDAY 30 Days Qty: 30 0RF hydralazine 100 mg tablet 100 mg PO TID 30 Days Qty: 90 0RF nifedipine 90 mg tablet extended release 90 mg PO QDAY 30 Days Qty: 30 0RF furosemide 20 mg tablet 20 mg PO .qod Trelegy Ellipta 100-62.5-25 mcg blister with device 1 inh inhalation QDAY 30 Days Qty: 28 0RF albuterol sulfate 90 mcg/actuation HFA aerosol inhaler 2 puff inhalation Q6H PRN (Reason: shortness of breath or wheezing) 30 Days Qty: 6.7 0RF methylprednisolone [Medrol (Mehdi)] 4 mg tablets,dose pack 4 mg PO QAM Qty: 21 0RF Referrals: No Primary/Family,Physician [Primary Care Provider] - In 1 week Problem List Clinical Impression: End stage renal disease on dialysis, Hypocalcemia Patient/Caregiver Discharge Instructions Print Language: Citizen Of [place] Stand Alone Forms: Fern Award Info., Patient Portal Info Letter
--- NOTE | 2025-02-10 11:36 | PC.CC ---
[employer] Specialist Lolis consulted ASW as patient missed her Dialysis appointment today due to lack of transportation. ASW made telephone contact with [facility] who reports they cannot make an appointment today for the patient. Per [employer] WORKER Mayur reports Dr. Leon informed her that patient can go there today. ASW made contact with [facility] who reports to give her a call in 10 minutes to review the schedule.
--- NOTE | 2025-02-10 11:56 | XR_ITS ---
Examination: PA chest single view TECHNIQUE: Upright PA chest single view Date and time: February 10, 2025 1227 hours Comparison January 31, 2025 INDICATIONS: Shortness of breath beginning 3 days ago. FINDINGS: Mild CHF Mild to moderate enlargement left ventricle Prominent vascular congestion with early septal edema Right axillary surgical clips Right internal jugular dialysis catheter tip right atrium IMPRESSION: Mild CHF
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
--- NOTE | 2025-02-10 11:57 | EKG_ITS ---
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
--- NOTE | 2025-02-10 12:18 | PC.CC ---
GISELL was informed by [facility] that the dialysis center cannot get the patient in for her dialysis today and will have to receive it at the hospital. SATNAMW provided update to MELANY Merchant and flame cutter Alicia.
[2025-02-10 12:30] LABS: Basophils # (Auto) 0.1 Thou/mm3 (0.0-0.2); Basophils % (Auto) 1 % (0-2.5); Eosinophils # (Auto) 0.2 Thou/mm3 (0.0-0.5); Eosinophils % (Auto) 3 % (0-10); Hematocrit 29.9 % (36.0-46.0); Hemoglobin 10.3 g/dL (12.0-16.0); Immature Granulocytes % (Auto) 0 % (0-0); Immature Granulocytes Auto 0.03 Thou/mm3 (0.00-0.00); Lymphocytes # (Auto) 1.1 Thou/mm3 (1.0-4.8); Lymphocytes % (Auto) 14 % (10-50); Mean Corpuscular HGB Conc 34.4 g/dl (31.0-37.0); Mean Corpuscular Hemoglobin 32.3 pg (25.0-35.0); Mean Corpuscular Volume 94 fL (80-100); Monocytes # (Auto) 0.9 Thou/mm3 (0.0-0.8); Monocytes % (Auto) 11 % (0-12); Neutrophils # (Auto) 5.6 Thou/mm3 (1.8-7.7); Neutrophils % (Auto) 71 % (37-80); Nucleated Red Blood Cell % 0 /100 WBC (0); Platelet Count 224 Thou/mm3 (140-440); RDW Standard Deviation 52.3 fL (36.4-46.3); Red Blood Count 3.19 Miln/mm3 (4.00-5.20); White Blood Count 7.9 Thou/mm3 (3.6-11.0)
[2025-02-10 12:51] LABS: Alanine Aminotransferase 22 U/L (10-49); Albumin/Globulin Ratio 1.5 (1.2-2.2); Alkaline Phosphatase 104 U/L (46-116); Anion Gap 17 (7-16); Aspartate Amino Transferase 23 U/L (0-34); BUN/Creatinine Ratio 22 Ratio (12-20); Bilirubin,Total 0.2 mg/dL (0.3-1.2); Blood Urea Nitrogen 71 mg/dL (9-23); Carbon Dioxide 16.1 mMol/L (20.0-31.0); Chloride 110 mMol/L (98-107); Creatinine (Component) 3.3 mg/dL (0.6-1.3); Estimated Creatinine Clearance 12.9 mL/min (>60); Globulin 2.6 gm/dL (2.3-3.5); Glucose 98 mg/dL (74-106); Osmolality,Calculated 305 (275-295); Potassium 4.6 mMol/L (3.4-5.1); Sodium 143 mMol/L (136-145); Total Protein 6.6 gm/dL (5.7-8.2); eGFR 14 See Note
[2025-02-10 13:14] LABS: Calcium 6.6 mg/dL (8.3-10.6); Calcium (Corrected) 6.6 mg/dL (8.5-10.1)
[2025-02-10 14:42] LABS: Collection Type, Urine Clean Catch
[2025-02-10 14:57] LABS: Bilirubin,Urine Negative (Negative); Blood,Urine 1+ (Negative); Clarity,Urine Clear (Clear/Hazy); Color,Urine Lt-Yellow (Lt Yel-Yel); Culture Indicated,Urine Not Indicated; Glucose, Urine 1+ (Negative); Ketones,Urine Negative (Negative); Leukocyte Esterase,Urine Negative (Negative); Nitrite,Urine Negative (Negative); Protein,Urine 2+ (Neg - Trace); RBC,Urine 7 /hpf (0-3); Specific Gravity,Urine 1.016 (1.001-1.035); Squamous Epithelial Cell,Urine 2 /hpf (0-5); Urobilinogen,Urine Negative mg/dL (0.0-1.0); WBC,Urine 3 /hpf (0-5)
[2025-02-10 14:59] LABS: Amphetamine/Methamp Scrn,U Negative (Negative); Barbiturate Screen,Urine Negative (Negative); Benzodiazepines Screen,Urine Negative (Negative); Benzoylecgonine Screen, Ur Negative (Negative); Fentanyl Screen,Urine Negative (Negative); Opiate Screen,Urine Negative (Negative); THC Screen,Urine Negative (Negative)
[2025-02-10] MEDS: CALCIUM GLUC/NS 1000MG IVPB 1,000 MG/50 ML BAG 50 MG IV ×2 (15:13→16:18)
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
--- NOTE | 2025-02-10 18:28 | ESCONSULT_ITS ---
History of Present Illness Data of Consult Consult date: 02/10/25 Requesting Physician: Devin Grimaldo MD Primary Care Provider: Physician No Primary/Family Consult Narrative Reason for consult: SREE, on hemodialysis History of present illness: Ms. Freed is a 69-year-old female with a past medical history of end-stage renal disease on hemodialysis Thursday and , hypertension, CHF, history of breast cancer s/p resection, COPD, methamphetamine abuse disorder was recently admitted to [facility] with congestive cardiac failure and COPD exacerbation and ended up on dialysis for cardiorenal syndrome. She was discharged to her boyfriend's home. However patient became homeless as boyfriend was not able to take care of her and she presented to the emergency department with shortness of breath. Renal consultation was requested for need for dialysis. Patient currently being dialyzed twice weekly at the [facility] dialysis unit via right IJ PermCath. Blood pressure 156/75, heart rate 71. WBC 7.9, hemoglobin 10.3, platelets 224. Sodium 143, potassium 4.6, BUN 71, creatinine 3.3, GFR 14. Bicarbonate 16.1. Calcium 6.6, LFTs normal. BNP 783. Urinalysis shows 2+ protein with no bacteria. Urine tox screen negative. Chest x-ray showed fluid overload. C- spine x-ray showed no cervical fracture. Patient admitted to medical floor and renal consultation requested for need for dialysis. Patient currently seen on dialysis. cc:: cc: Devin Grimaldo MD Review of Systems Review of Systems Narrative Review of Systems: CONSTITUTIONAL: Patient denies any fever, chills. HEENT: Denies any visual disturbances or hearing problems. CARDIOVASCULAR: Patient denies any chest pain. c/o shortness of breath, swelling in the lower extremities. PULMONARY: Patient c/o shortness of breath GASTROINTESTINAL: Patient denies any abdominal pain, constipation, nausea, vomiting, diarrhea. GENITOURINARY: Patient denies any urinary symptoms of burning or frequency or hematuria, denies any form in the urine. SKIN: Denies any rash. MUSCULOSKELETAL: Complaining of gait imbalance NEUROLOGICAL: Denies any neurological problems of strokes, seizures or confusion. Denies any memory problems. PSYCHIATRIC: Denies any depression or anxiety. LYMPHATICS : No lymphadenopathy Past Medical History Past Medical History NEUROLOGIC: Negative Neurological Disorders CARDIAC: Positive Cardiac Disorders, Hypercholesterolemia, Congestive Heart Failure, Edema and Hypertension RESPIRATORY: Positive Respiratory Disorders, Chronic Obstructive Pulmonary Disease (COPD), Bronchitis and Pneumonia GASTROINTESTINAL: Positive Gastrointestinal Disorders, Gastrointestinal Bleed and Ulcer GENITOURINARY: Positive Genitourinary Disorders, Renal Disease and Dialysis REPRODUCTIVE: Positive Breast Cancer and Previous Pregnancies MUSCULOSKELETAL: Positive Musculoskeletal Disorders and Arthritis ENT: Negative History of ENT Problems ENDOCRINE: Negative Endocrine Disorders, Diabetes Mellitus Type 1 or Diabetes Mellitus Type 2 HEMATOLOGIC: Positive Blood Disorders and Anemia PSYCHO/SOCIAL: Positive Recreational Drug Use, Depression, Anxiety and Post Traumatic Stress Disorder OTHER HISTORY: Positive Cosmetic Surgery (breast cancer surgery cosmetic. ), Falls, Blood Transfusions, Chicken Pox, Cancer and Breast Cancer; Negative Autoimmune Disease, Blood Transfusion Reaction or Anesthesia Reactions Family History FAMILY HISTORY: Positive Family Gastrointestinal Problems and Family Cancer; Negative Family Respiratory Disorders, Family Cardiac Disorders, Family Surgery or Family Anesthesia Reaction Surgical History SURGICAL: Positive Mastectomy, Lumpectomy and Section OTHER SURGICAL HX: right mastectomy and implant Social History SMOKING STATUS: Light (< 1 pack/day) SECOND HAND EXPOSURE: No Past Medical History Comments PMH COMMENT: Past medical history: As mentioned above Past surgical history: Mastectomy, lumpectomy, breast implant and right lump, and , hysterectomy Meds: Patient is unsure which meds she takes, however per external med rec patient takes nifedipine 90 mg daily, valsartan 40 mg daily, hydralazine 100 mg 3 times daily, clonidine 0.1 mg twice daily, Coreg 25 mg twice daily, Bumex 1 mg daily, and albuterol inhaler Social history: Patient used to smoke, and quit 2 months ago however had a cigarette but today prior to coming to the ED. Family history: Positive for GI, cancer, heart disease Allergies: Allergic to iodine Meds Home Medications and Allergies Home Medications ?Medication ?Instructions ?Recorded ?Confirmed ?Type furosemide 20 mg tablet 20 mg PO .qod 02/01/2502/10 History Allergies Allergy/AdvReac Type Severity Reaction Status Date / Time iodine Allergy Severe Rash Verified 02/10/25 11:17 Exam Vital Signs Temp Pulse Resp BP Pulse Ox O2 Del Method 36.7 C 77 18 177/110 H 95 Room Air 02/10/25 17:26 02/10/25 18:02 02/10/25 17:26 02/10/25 18:02 02/10/25 16:31 02/10/25 16:31 Narrative Exam GENERAL APPEARANCE: Patient currently seen in dialysis NECK: Neck supple, no JVD or bruit CARDIOVASCULAR: Heart regular, no murmurs LUNGS/CHEST: Decreased breath sounds bilaterally ABDOMEN: Soft, nontender, nondistended. No masses. Normal bowel sounds. EXTREMITIES: trace edema in the lower extremities SKIN: Skin exam normal without any rashes . Right IJ PermCath MUSCULOSKELETAL: in bed, able to move her extremities PSYCHIATRIC: Normal mood, affect LYMPHATICS: No lymphadenopathy noted NEUROLOGICAL : No neurological deficits Results Labs 02/11/25 04:49 02/11/25 04:49 Labs: Short CBC 02/10/25 Range/Units 12:08 WBC 7.9 (3.6-11.0) Thou/mm3 Hgb 10.3 L (12.0-16.0) g/dL Hct 29.9 L (36.0-46.0) % Plt Count 224 (140-440) Thou/mm3 BMP 02/10/25 12:08 Sodium 143 Potassium 4.6 Chloride 110 H Carbon Dioxide 16.1 L BUN 71 H Creatinine 3.3 H Glucose 98 Calcium 6.6 L* Liver Function 02/10/25 Range/Units 12:08 Total Bilirubin 0.2 L (0.3-1.2) mg/dL AST 23 (0-34) U/L ALT 22 (10-49) U/L Alkaline Phosphatase 104 (46-116) U/L Albumin 4.0 (3.4-4.8) gm/dL Urine 02/10/25 Range/Units 14:26 Urine Color Lt-Yellow (Lt Yel-Yel) Urine Clarity Clear (Clear/Hazy) Urine pH 6.0 (5.0-7.0) Ur Specific [place] 1.016 (1.001-1.035) Urine Protein 2+ A (Neg - Trace) Urine Glucose (UA) 1+ A (Negative) Assessment & Plan Additional Assessment & Plan Additional Plan: Johana Freed is a 69-year-old female with PMHx of HFrEF (EF 30 to 35%, 06/2024), CKD stage IV/V, COPD, hypertension, breast cancer status post bilateral mastectomy, and history of methamphetamine use who was admitted for management of decompensated CHF exacerbation and hypertension. Nephrology consulted for need for dialysis #Acute on chronic kidney injury-- ATN vs cardiorenal syndrome type 2 Continue with diuretics, fluid restriction. Patient currently seen on dialysis. Tolerating dialysis without any problems. Hemodialysis for 3 hours, 2K, ultrafiltration 2-3 L, Epogen 6000, no heparin ordered. Plan of care discussed with the dialysis nurse. Please see dialysis flowsheet for further details. #Hypertension #Acute decompensated heart failure exacerbation #HFrEF #AHRF secondary to, #History of COPD #Cirrhosis # h/o Polysubstance abuse - Continue management per primary team Patient currently needs placement with a dialysis catheter and need for dialysis. Thank you Devin for allowing me to participate in the care of Ms. Freed
[2025-02-10] MEDS: HEPARIN SOD INJ 5000 UNIT/ML VIAL SC (20:11)
[2025-02-10] MEDS: EPOETIN ALFA INJ 1,000 UNIT/0.05 ML UNIT 10000 UNIT SC (20:11)
[2025-02-10] MEDS: cloNIDine HCL 0.1 MG TABLET PO (20:12)
[2025-02-10] MEDS: SENNA TABLET 1 TAB PO (20:13)
[2025-02-10] MEDS: hydrALAZINE HCL 25 MG TABLET PO (21:53)
[2025-02-11] VITALS (16 sets, daily range): BP systolic 140–176; BP diastolic 73–101; PULSE 62–93; RESP 16–96; TEMP 36.1–37; O2SAT 92–97
[2025-02-11] MEDS: hydrALAZINE HCL 25 MG TABLET PO ×3 (05:13→21:30)
[2025-02-11 06:13] LABS: Basophils # (Auto) 0.1 Thou/mm3 (0.0-0.2); Basophils % (Auto) 1 % (0-2.5); Eosinophils # (Auto) 0.3 Thou/mm3 (0.0-0.5); Eosinophils % (Auto) 4 % (0-10); Hematocrit 28.5 % (36.0-46.0); Hemoglobin 9.6 g/dL (12.0-16.0); Immature Granulocytes % (Auto) 0 % (0-0); Immature Granulocytes Auto 0.02 Thou/mm3 (0.00-0.00); Lymphocytes # (Auto) 1.3 Thou/mm3 (1.0-4.8); Lymphocytes % (Auto) 21 % (10-50); Mean Corpuscular HGB Conc 33.7 g/dl (31.0-37.0); Mean Corpuscular Hemoglobin 31.8 pg (25.0-35.0); Mean Corpuscular Volume 94 fL (80-100); Monocytes # (Auto) 0.8 Thou/mm3 (0.0-0.8); Monocytes % (Auto) 12 % (0-12); Neutrophils # (Auto) 3.9 Thou/mm3 (1.8-7.7); Neutrophils % (Auto) 61 % (37-80); Nucleated Red Blood Cell % 0 /100 WBC (0); Platelet Count 187 Thou/mm3 (140-440); Red Blood Count 3.02 Miln/mm3 (4.00-5.20); White Blood Count 6.4 Thou/mm3 (3.6-11.0)
[2025-02-11 06:23] LABS: Alanine Aminotransferase 16 U/L (10-49); Albumin, Serum 3.5 gm/dL (3.4-4.8); Albumin/Globulin Ratio 1.6 (1.2-2.2); Alkaline Phosphatase 81 U/L (46-116); Anion Gap 10 (7-16); Aspartate Amino Transferase 17 U/L (0-34); BUN/Creatinine Ratio 15 Ratio (12-20); Bilirubin,Total 0.4 mg/dL (0.3-1.2); Blood Urea Nitrogen 35 mg/dL (9-23); Calcium 7.2 mg/dL (8.3-10.6); Calcium (Corrected) 7.6 mg/dL (8.5-10.1); Carbon Dioxide 26.5 mMol/L (20.0-31.0); Chloride 109 mMol/L (98-107); Creatinine (Component) 2.4 mg/dL (0.6-1.3); Estimated Creatinine Clearance 17.8 mL/min (>60); Globulin 2.2 gm/dL (2.3-3.5); Glucose 90 mg/dL (74-106); Magnesium 1.3 mg/dL (1.6-2.6); Osmolality,Calculated 296 (275-295); Phosphorous 4.4 mg/dL (2.4-5.1); Potassium 3.5 mMol/L (3.4-5.1); Sodium 145 mMol/L (136-145); Total Protein 5.7 gm/dL (5.7-8.2); eGFR 21 See Note
[2025-02-11] MEDS: cloNIDine HCL 0.1 MG TABLET PO ×2 (08:15→20:08)
[2025-02-11] MEDS: carVEDILOL 3.125 MG TABLET 6.25 MG PO ×2 (08:16→17:11)
[2025-02-11] MEDS: POTASSIUM CHLORIDE 20 mEq TABCR PO (08:18)
[2025-02-11] MEDS: Magnesium Sulfate 4 GM Ivpb 4 GM/50 ML BAG IV (08:18)
[2025-02-11] MEDS: HEPARIN SOD INJ 5000 UNIT/ML VIAL SC ×2 (08:23→20:08)
[2025-02-11] MEDS: BUMETANIDE INJ 0.25 MG/ML VIAL 4 ML 1 MG IVP (08:23)
[2025-02-11] MEDS: NIFEdipine XL 30 MG TABCR PO (08:23)
[2025-02-11] MEDS: CALCIUM CARBONATE 600 MG TABLET PO (08:32)
--- NOTE | 2025-02-11 11:59 | PD.RESPRO ---
Documentation for date of: 02/11/25 Subjective Subjective Interval history: Patient was seen and examined at bedside this morning. No acute overnight events. This morning patient was feeling a lot better and was breathing better. She states she was still hungry therefore she got 2 trays of breakfast this morning. Patient got hemodialysis yesterday and that was a lot of improvement in patient's shortness of breath. Today PT walked with the patient. atient still needing SNF placement at this time as she does not have a secure place ago and cannot get the help she needs to get improve. Today magnesium was low and potassium was on the lower end therefore will replete and monitor tomorrow AM. Exam Vital Signs Temp Pulse Resp BP Pulse Ox O2 Del Method 97 F 75 18 165/88 H 95 Room Air 02/11/25 07:59 02/11/25 08:23 02/11/25 07:59 02/11/25 08:23 02/11/25 07:59 02/11/25 07:59 Narrative Exam General: A/O x3, no acute distress Eyes: PERRL, EOMI. Anicteric, vision grossly intact. Ears: No ear pain, no ear discharge, Hearing grossly intact. Nose: No nasal discharge. Mouth/Throat: Moist mucous membranes, no redness, no lesions. Neck: Neck supple, non-tender, no cervical lymphadenopathy. Lungs: Clear KARIE to auscultation and percussion, No accessory muscle use. Cardio: Normal S1/S2, regular rhythm, no murmurs, no JVD Abdomen: Soft, non-tender, no palpable masses, peristalsis present, no guarding or rebound. Extremities: Symmetrical, no significant deformities, no peripheral edema , non-tender, peripheral pulses presents. Skin: No rashes, no lesions, warm to touch. Neuro: No focal neurological deficits. motor and sensory intact Psych: Cooperative, appropriate mood and effect. Objective Labs 02/11/25 04:49 02/11/25 04:49 Labs: Laboratory Results - last 24 hr 02/10/25 02/10/25 02/11/25 12:08 14:26 04:49 WBC 7.9 6.4 RBC 3.19 L 3.02 L Hgb 10.3 L 9.6 L Hct 29.9 L 28.5 L MCV 94 94 MCH 32.3 31.8 MCHC 34.4 33.7 RDW Std Deviation 52.3 H 52.0 H Plt Count 224 187 D Neut % (Auto) 71 61 Lymph % (Auto) 14 21 [place] % (Auto) 11 12 Eos % (Auto) 3 4 Baso % (Auto) 1 1 Neut # (Auto) 5.6 3.9 Lymph # (Auto) 1.1 1.3 [place] # (Auto) 0.9 H 0.8 Eos # (Auto) 0.2 0.3 Baso # (Auto) 0.1 0.1 Immature Gran # (Auto) 0.03 H 0.02 H Absolute Nucleated RBC 0.00 0.00 Immature Gran % 0 0 Nucleated RBC % 0 0 Sodium 143 145 Potassium 4.6 3.5 D Chloride 110 H 109 H Carbon Dioxide 16.1 L 26.5 Anion Gap 17 H 10 BUN 71 H 35 H Creatinine 3.3 H 2.4 H D Estim Creat Clear Calc 12.9 L 17.8 L eGFR 14 L* 21 L BUN/Creatinine Ratio 22 H 15 Glucose 98 90 Calculated Osmolality 305 H 296 H Calcium 6.6 L* 7.2 L Corrected Calcium 6.6 L* 7.6 L Phosphorus 4.4 Magnesium 1.3 L Total Bilirubin 0.2 L 0.4 AST 23 17 ALT 22 16 Alkaline Phosphatase 104 81 D Total Protein 6.6 5.7 Albumin 4.0 3.5 D Globulin 2.6 2.2 L Albumin/Globulin Ratio 1.5 1.6 Ur Collection Type Clean Catch Urine Color Lt-Yellow Urine Clarity Clear Urine pH 6.0 Ur Specific [place] 1.016 Urine Protein 2+ A Urine Glucose (UA) 1+ A Urine Ketones Negative Urine Blood 1+ A Urine Nitrite Negative Urine Bilirubin Negative Urine Urobilinogen (Auto) Negative Ur Leukocyte Esterase Negative Urine RBC 7 H Urine WBC 3 Ur Squamous Epith Cells 2 Urine Bacteria None Ur Culture Indicated? Not Indicated Urine Opiates Screen Negative Urine Fentanyl Screen Negative Ur Barbiturates Screen Negative U Amphetamin/Meth Scrn Negative U Benzodiazepines Scrn Negative U Cocaine Metab Screen Negative U Marijuana (THC) Screen Negative Quality Measures Quality Measures none Advance care planning discussed with:: patient Assessment & Plan Assessment Current Active Medications: Generic Name Dose Route Start Last Admin Trade Name Freq PRN Reason Stop Dose Admin Acetaminophen 650 mg 02/10/25 17:34 Acetaminophen 325 Mg Tablet PO 03/12/25 17:33 Q6H PRN Fever >100.4 or Pain 1-3 Albuterol/Ipratropium 3 ml 02/10/25 17:38 Albuterol/Ipratropium (Duoneb) Rt Dee 3 Ml Nebu INH 03/12/25 18:59 Q4HRRT PRN SHORTNESS OF BREATH Bumetanide 1 mg 02/11/25 09:00 02/11/25 08:23 Bumetanide Inj 0.25 Mg/Ml Vial 4 Ml IVP 03/13/25 08:59 1 mg QDAY KENNEDY Administration Carvedilol 6.25 mg 02/11/25 08:00 02/11/25 08:16 Carvedilol 3.125 Mg Tablet PO 03/13/25 07:59 6.25 mg BIDWM KENNEDY Administration Clonidine 0.1 mg 02/10/25 21:00 02/11/25 08:15 Clonidine Hcl 0.1 Mg Tablet PO 03/12/25 20:59 0.1 mg BID KENNEDY Administration Heparin Sodium (Porcine) 5,000 unit 02/10/25 21:00 02/11/25 08:23 Heparin Sod Inj 5000 Unit/Ml Vial SC 02/24/25 20:59 5,000 unit Q12HR KENNEDY Administration Heparin Sodium (Porcine) 3,800 unit 02/10/25 18:22 Heparin Sod Inj 1000 Unit/Ml Vial 10 Ml INDWELLCAT 02/24/25 18:21 X1 PRN DIALYSIS Protocol Hydralazine HCl 25 mg 02/10/25 22:00 02/11/25 05:13 Hydralazine Hcl 25 Mg Tablet PO 03/12/25 21:59 25 mg TID KENNEDY Administration Albumin Human 25 gm in 100 mls @ 100 mls/hr 02/10/25 18:24 Albuminar-25 Ivpb IV 02/13/25 18:23 QDAY PRN DIALYSIS Nifedipine 30 mg 02/11/25 09:00 02/11/25 08:23 Nifedipine Xl 30 Mg Tabcr PO 03/13/25 08:59 30 mg QDAY KENNEDY Administration Ondansetron HCl 4 mg 02/10/25 17:34 Ondansetron Inj 2 Mg/Ml Inj 2 Ml IVP 03/12/25 17:33 Q6H PRN NAUSEA OR VOMITING Protocol Sennosides 1 tab 02/10/25 17:45 02/11/25 08:25 Senna Tablet PO 03/12/25 17:44 Not Given QDAY [facility] Protocol Plan 69-year-old female with past medical history of resistant hypertension, ESRD, breast cancer s/p resection and breast implant of right breast, COPD on home O2, and 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 Echo on 10/2024 that showed an EF of 45 to 50% Patient does not have any lower extremity edema Plan: Will continue with Bumex 1 mg IV daily Will continue with Coreg 6.25 mg twice daily with meals, clonidine 0.1 mg twice daily, hydralazine 25 mg 3 times daily, and nifedipine 30 mg daily Will continue monitoring #Hx of COPD Patient uses home O2 mostly at night Patient saturating well today on room air Plan: Marvin ordered O2 as needed #Housing instability Patient does not have a secured place to go back once discharged from the hospital as she has been having a lot of difficulty managing her appointments with physicians and getting the treatment she needs. Patient would benefit from jail facility Will see if patient qualifies for jail facility Disposition: Monitoring electrolytes.. Diet: Renal GI prophylaxis: not indicated DVT prophylaxis: heparin sub cu Code: Full Case disclosed with Attending Dr. Dillan Roblero PGY1 Disclaimer: Even though this this note was dictated by speech recognition and even though it was carefully revised there may still be minor errors in labor relations consultant due to voice recognition software. Attending Provider Attestation/Addendum I attest that I was physically present for the evaluation, physical examination, lab and imaging review of the patient with the residents. I discussed the case with the residents and agree with the findings and plans of care as documented above. At bedside today, patient states she is feeling better. Her lungs sound clear today, bilateral edema has been improving. Vitals are stable except for mild hypertension, saturating well on room air. Lab results show potassium of 3.5, corrected calcium is still 7.6, had a magnesium of 1.3. We will replete accordingly. Follow-up renal panel to monitor her electrolyte levels closely. Devin Grimaldo MD
--- NOTE | 2025-02-11 12:20 | PC.PT ---
02/11/2025 PT eval performed and balance is slightly impaired but endurance is most impaired / limited. patient needs 4WW to be able to sit and rest when walking or performing standing tasks. pt could go to a home w/ CG assistance if she has a safe home to go to.
--- NOTE | 2025-02-11 13:33 | PD.NEPHPROG ---
Documentation for date of: 02/11/25 Subjective Subjective Interval history: Ms. Freed is a 69-year-old female with a past medical history of end-stage renal disease on hemodialysis Thursday and , hypertension, CHF, history of breast cancer s/p resection, COPD, methamphetamine abuse disorder was recently admitted to [facility] with congestive cardiac failure and COPD exacerbation and ended up on dialysis for cardiorenal syndrome. She was discharged to her boyfriend's home. However patient became homeless as boyfriend was not able to take care of her and she presented to the emergency department with shortness of breath. Renal consultation was requested for need for dialysis. Patient currently being dialyzed twice weekly at the [facility] dialysis unit via right IJ PermCath. Blood pressure 156/75, heart rate 71. WBC 7.9, hemoglobin 10.3, platelets 224. Sodium 143, potassium 4.6, BUN 71, creatinine 3.3, GFR 14. Bicarbonate 16.1. Calcium 6.6, LFTs normal. BNP 783. Urinalysis shows 2+ protein with no bacteria. Urine tox screen negative. Chest x-ray showed fluid overload. C-spine x-ray showed no cervical fracture. Patient admitted to medical floor and renal consultation requested for need for dialysis. Patient currently seen on dialysis. 02/11/2025 cheerful. Denies any nausea, vomiting.Patient currently seen in medical floor. Resting comfortably. Review of Systems Review of Systems Narrative Review of Systems: CONSTITUTIONAL: Patient denies any fever, chills. HEENT: Denies any visual disturbances or hearing problems. CARDIOVASCULAR: Patient denies any chest pain. Denies any shortness of breath, swelling in the lower extremities. PULMONARY: Patient denies any shortness of breath GASTROINTESTINAL: Patient denies any abdominal pain, constipation, nausea, vomiting, diarrhea. GENITOURINARY: Patient denies any urinary symptoms of burning or frequency or hematuria, denies any form in the urine. SKIN: Denies any rash. MUSCULOSKELETAL: Complaining of gait imbalance NEUROLOGICAL: Denies any neurological problems of strokes, seizures or confusion. Denies any memory problems. PSYCHIATRIC: Denies any depression or anxiety. LYMPHATICS : No lymphadenopathy Exam Vital Signs Temp Pulse Resp BP Pulse Ox O2 Del Method 36.3 C 70 17 150/76 H 93 L Room Air 02/11/25 12:00 02/11/25 13:16 02/11/25 12:00 02/11/25 13:16 02/11/25 12:00 02/11/25 12:00 Narrative Exam GENERAL APPEARANCE: Patient currently seen in medical floor NECK: Neck supple, no JVD or bruit CARDIOVASCULAR: Heart regular, no murmurs LUNGS/CHEST: Decreased breath sounds bilaterally ABDOMEN: Soft, nontender, nondistended. No masses. Normal bowel sounds. EXTREMITIES: trace edema in the lower extremities SKIN: Skin exam normal without any rashes . Right IJ PermCath MUSCULOSKELETAL: in bed, able to move her extremities PSYCHIATRIC: Normal mood, affect LYMPHATICS: No lymphadenopathy noted NEUROLOGICAL : No neurological deficits Objective Labs 02/11/25 04:49 02/11/25 04:49 Labs: Laboratory Results - last 24 hr 02/10/25 02/11/25 14:26 04:49 WBC 6.4 RBC 3.02 L Hgb 9.6 L Hct 28.5 L MCV 94 MCH 31.8 MCHC 33.7 RDW Std Deviation 52.0 H Plt Count 187 D Neut % (Auto) 61 Lymph % (Auto) 21 [place] % (Auto) 12 Eos % (Auto) 4 Baso % (Auto) 1 Neut # (Auto) 3.9 Lymph # (Auto) 1.3 [place] # (Auto) 0.8 Eos # (Auto) 0.3 Baso # (Auto) 0.1 Immature Gran # (Auto) 0.02 H Absolute Nucleated RBC 0.00 Immature Gran % 0 Nucleated RBC % 0 Sodium 145 Potassium 3.5 D Chloride 109 H Carbon Dioxide 26.5 Anion Gap 10 BUN 35 H Creatinine 2.4 H D Estim Creat Clear Calc 17.8 L eGFR 21 L BUN/Creatinine Ratio 15 Glucose 90 Calculated Osmolality 296 H Calcium 7.2 L Corrected Calcium 7.6 L Phosphorus 4.4 Magnesium 1.3 L Total Bilirubin 0.4 AST 17 ALT 16 Alkaline Phosphatase 81 D Total Protein 5.7 Albumin 3.5 D Globulin 2.2 L Albumin/Globulin Ratio 1.6 Ur Collection Type Clean Catch Urine Color Lt-Yellow Urine Clarity Clear Urine pH 6.0 Ur Specific [place] 1.016 Urine Protein 2+ A Urine Glucose (UA) 1+ A Urine Ketones Negative Urine Blood 1+ A Urine Nitrite Negative Urine Bilirubin Negative Urine Urobilinogen (Auto) Negative Ur Leukocyte Esterase Negative Urine RBC 7 H Urine WBC 3 Ur Squamous Epith Cells 2 Urine Bacteria None Ur Culture Indicated? Not Indicated Urine Opiates Screen Negative Urine Fentanyl Screen Negative Ur Barbiturates Screen Negative U Amphetamin/Meth Scrn Negative U Benzodiazepines Scrn Negative U Cocaine Metab Screen Negative U Marijuana (THC) Screen Negative Assessment & Plan Additional Assessment & Plan Additional Plan: Johana Freed is a 69-year-old female with PMHx of HFrEF (EF 30 to 35%, 06/2024), CKD stage IV/V, COPD, hypertension, breast cancer status post bilateral mastectomy, and history of methamphetamine use who was admitted for management of decompensated CHF exacerbation and hypertension. Nephrology consulted for need for dialysis #Acute on chronic kidney injury-- ATN vs cardiorenal syndrome type 2 Continue with diuretics, fluid restriction. Patient did receive dialysis yesterday. Labs reviewed today and stable. No need for extra session today. Pending placement. #Hypertension # compensated heart failure #HFrEF #History of COPD #Cirrhosis # h/o Polysubstance abuse - Continue management per primary team Patient currently needs placement with a dialysis catheter and need for dialysis. Thank you Devin for allowing me to participate in the care of Ms. Freed
[2025-02-11] MEDS: ACETAMINOPHEN 325 MG TABLET 650 MG PO (17:15)
[2025-02-12] VITALS (16 sets, daily range): BP systolic 151–182; BP diastolic 86–107; PULSE 68–78; RESP 16–95; TEMP 36.1–36.3; O2SAT 92–97
[2025-02-12] MEDS: hydrALAZINE HCL 25 MG TABLET PO (04:22)
[2025-02-12 05:56] LABS: Basophils # (Auto) 0.1 Thou/mm3 (0.0-0.2); Basophils % (Auto) 1 % (0-2.5); Eosinophils # (Auto) 0.2 Thou/mm3 (0.0-0.5); Eosinophils % (Auto) 4 % (0-10); Immature Granulocytes % (Auto) 0 % (0-0); Immature Granulocytes Auto 0.01 Thou/mm3 (0.00-0.00); Lymphocytes # (Auto) 1.5 Thou/mm3 (1.0-4.8); Lymphocytes % (Auto) 23 % (10-50); Mean Corpuscular HGB Conc 33.3 g/dl (31.0-37.0); Mean Corpuscular Hemoglobin 31.9 pg (25.0-35.0); Mean Corpuscular Volume 96 fL (80-100); Monocytes # (Auto) 0.8 Thou/mm3 (0.0-0.8); Monocytes % (Auto) 12 % (0-12); Neutrophils # (Auto) 3.9 Thou/mm3 (1.8-7.7); Neutrophils % (Auto) 61 % (37-80); Nucleated Red Blood Cell % 0 /100 WBC (0); Platelet Count 230 Thou/mm3 (140-440); RDW Standard Deviation 53.2 fL (36.4-46.3); Red Blood Count 3.13 Miln/mm3 (4.00-5.20); White Blood Count 6.4 Thou/mm3 (3.6-11.0)
[2025-02-12 06:30] LABS: Alanine Aminotransferase 14 U/L (10-49); Albumin, Serum 3.6 gm/dL (3.4-4.8); Albumin/Globulin Ratio 1.6 (1.2-2.2); Alkaline Phosphatase 91 U/L (46-116); Anion Gap 10 (7-16); Aspartate Amino Transferase 15 U/L (0-34); BUN/Creatinine Ratio 19 Ratio (12-20); Bilirubin,Total 0.2 mg/dL (0.3-1.2); Blood Urea Nitrogen 53 mg/dL (9-23); Calcium 7.7 mg/dL (8.3-10.6); Carbon Dioxide 25.1 mMol/L (20.0-31.0); Chloride 107 mMol/L (98-107); Creatinine (Component) 2.8 mg/dL (0.6-1.3); Estimated Creatinine Clearance 15.2 mL/min (>60); Globulin 2.3 gm/dL (2.3-3.5); Glucose 92 mg/dL (74-106); Magnesium 1.8 mg/dL (1.6-2.6); Osmolality,Calculated 297 (275-295); Potassium 4.7 mMol/L (3.4-5.1); Sodium 142 mMol/L (136-145); Total Protein 5.9 gm/dL (5.7-8.2); eGFR 18 See Note
[2025-02-12] MEDS: HEPARIN SOD INJ 5000 UNIT/ML VIAL SC ×2 (08:04→21:29)
[2025-02-12] MEDS: Magnesium Sulfate 2 GM Ivpb 2 GM/50 ML BAG IV (08:04)
[2025-02-12] MEDS: CALCIUM CARBONATE 600 MG TABLET PO (08:05)
[2025-02-12] MEDS: cloNIDine HCL 0.1 MG TABLET PO ×2 (08:05→21:29)
[2025-02-12] MEDS: NIFEdipine XL 30 MG TABCR PO (08:06)
[2025-02-12] MEDS: carVEDILOL 3.125 MG TABLET 6.25 MG PO ×2 (08:06→16:54)
[2025-02-12] MEDS: BUMETANIDE INJ 0.25 MG/ML VIAL 4 ML 1 MG IVP (08:07)
--- NOTE | 2025-02-12 09:50 | ESPR_ITS ---
Documentation for date of: 02/12/25 Subjective Subjective Interval history: Ms. Freed is a 69-year-old female with a past medical history of end-stage renal disease on hemodialysis Thursday and , hypertension, CHF, history of breast cancer s/p resection, COPD, methamphetamine abuse disorder was recently admitted to [facility] with congestive cardiac failure and COPD exacerbation and ended up on dialysis for cardiorenal syndrome. She was discharged to her boyfriend's home. However patient became homeless as boyfriend was not able to take care of her and she presented to the emergency department with shortness of breath. Renal consultation was requested for need for dialysis. Patient currently being dialyzed twice weekly at the [facility] dialysis unit via right IJ PermCath. Blood pressure 156/75, heart rate 71. WBC 7.9, hemoglobin 10.3, platelets 224. Sodium 143, potassium 4.6, BUN 71, creatinine 3.3, GFR 14. Bicarbonate 16.1. Calcium 6.6, LFTs normal. BNP 783. Urinalysis shows 2+ protein with no bacteria. Urine tox screen negative. Chest x-ray showed fluid overload. C- spine x-ray showed no cervical fracture. Patient admitted to medical floor and renal consultation requested for need for dialysis. Patient currently seen on dialysis. 02/12/2025 cheerful. Denies any nausea, vomiting.Patient currently seen in medical floor. Resting comfortably. No chest pain, shortness of breath. Next dialysis scheduled for Thursday. Patient goes twice weekly. Review of Systems Review of Systems Narrative Review of Systems: CONSTITUTIONAL: Patient denies any fever, chills. HEENT: Denies any visual disturbances or hearing problems. CARDIOVASCULAR: Patient denies any chest pain. Denies any shortness of breath, swelling in the lower extremities. PULMONARY: Patient denies any shortness of breath GASTROINTESTINAL: Patient denies any abdominal pain, constipation, nausea, vomiting, diarrhea. GENITOURINARY: Patient denies any urinary symptoms of burning or frequency or hematuria, denies any form in the urine. SKIN: Denies any rash. MUSCULOSKELETAL: Complaining of gait imbalance NEUROLOGICAL: Denies any neurological problems of strokes, seizures or confusion. Denies any memory problems. PSYCHIATRIC: Denies any depression or anxiety. LYMPHATICS : No lymphadenopathy Exam Vital Signs Temp Pulse Resp BP Pulse Ox O2 Del Method 36.1 C 70 18 182/107 H 92 L Room Air 02/12/25 08:00 02/12/25 08:25 02/12/25 08:25 02/12/25 08:07 02/12/25 08:25 02/12/25 08:00 Narrative Exam GENERAL APPEARANCE: Patient currently seen in medical floor NECK: Neck supple, no JVD or bruit CARDIOVASCULAR: Heart regular, no murmurs LUNGS/CHEST: Decreased breath sounds bilaterally ABDOMEN: Soft, nontender, nondistended. No masses. Normal bowel sounds. EXTREMITIES: trace edema in the lower extremities SKIN: Skin exam normal without any rashes . Right IJ PermCath MUSCULOSKELETAL: in bed, able to move her extremities PSYCHIATRIC: Normal mood, affect LYMPHATICS: No lymphadenopathy noted NEUROLOGICAL : No neurological deficits Objective Labs 02/12/25 05:18 02/12/25 05:18 Labs: Laboratory Results - last 24 hr 02/12/25 05:18 WBC 6.4 RBC 3.13 L Hgb 10.0 L Hct 30.0 L MCV 96 MCH 31.9 MCHC 33.3 RDW Std Deviation 53.2 H Plt Count 230 D Neut % (Auto) 61 Lymph % (Auto) 23 [place] % (Auto) 12 Eos % (Auto) 4 Baso % (Auto) 1 Neut # (Auto) 3.9 Lymph # (Auto) 1.5 [place] # (Auto) 0.8 Eos # (Auto) 0.2 Baso # (Auto) 0.1 Immature Gran # (Auto) 0.01 H Absolute Nucleated RBC 0.00 Immature Gran % 0 Nucleated RBC % 0 Sodium 142 Potassium 4.7 D Chloride 107 Carbon Dioxide 25.1 Anion Gap 10 BUN 53 H Creatinine 2.8 H Estim Creat Clear Calc 15.2 L eGFR 18 L BUN/Creatinine Ratio 19 Glucose 92 Calculated Osmolality 297 H Calcium 7.7 L Corrected Calcium 8.0 L Phosphorus 4.0 Magnesium 1.8 Total Bilirubin 0.2 L AST 15 ALT 14 Alkaline Phosphatase 91 Total Protein 5.9 Albumin 3.6 Globulin 2.3 Albumin/Globulin Ratio 1.6 Assessment & Plan Additional Assessment & Plan Additional Plan: Johana Freed is a 69-year-old female with PMHx of HFrEF (EF 30 to 35%, 06/2024), CKD stage IV/V, COPD, hypertension, breast cancer status post bilateral mastectomy, and history of methamphetamine use who was admitted for management of decompensated CHF exacerbation and hypertension. Nephrology consulted for need for dialysis #Acute on chronic kidney injury-- ATN vs cardiorenal syndrome type 2 Continue with diuretics, fluid restriction. Patient did receive dialysis Thursday.. Labs reviewed today and stable. No need for extra session today. Pending placement. #Hypertension # compensated heart failure #HFrEF #History of COPD #Cirrhosis # h/o Polysubstance abuse - Continue management per primary team Patient currently needs placement with a dialysis catheter and need for dialysis. Thank you Devin for allowing me to participate in the care of Ms. Freed
--- NOTE | 2025-02-12 10:33 | PD.RESPRO ---
Documentation for date of: 02/12/25 Subjective Subjective Interval history: Patient was seen and examined at bedside this morning. No acute overnight events. Clarified with physical therapy as they stated that patient could go home if she had a safe home, but given patient's current housing situation they stated that they will reevaluate today and most likely patient will benefit from snf facility. Otherwise patient was low bit more rotated today because of her breakfast and because of her home situation at this time. Otherwise no other complaints. Exam Vital Signs Temp Pulse Resp BP Pulse Ox O2 Del Method 97 F 70 18 182/107 H 92 L Room Air 02/12/25 08:00 02/12/25 08:25 02/12/25 08:25 02/12/25 08:07 02/12/25 08:02/12/25 08:00 Narrative Exam General: A/O x3, no acute distress Eyes: PERRL, EOMI. Anicteric, vision grossly intact. Ears: No ear pain, no ear discharge, Hearing grossly intact. Nose: No nasal discharge. Mouth/Throat: Moist mucous membranes, no redness, no lesions. Neck: Neck supple, non-tender, no cervical lymphadenopathy. Lungs: Clear KARIE to auscultation and percussion, No accessory muscle use. Cardio: Normal S1/S2, regular rhythm, no murmurs, no JVD Abdomen: Soft, non-tender, no palpable masses, peristalsis present, no guarding or rebound. Extremities: Symmetrical, no significant deformities, no peripheral edema , non-tender, peripheral pulses presents. Skin: No rashes, no lesions, warm to touch. Neuro: No focal neurological deficits. motor and sensory intact Psych: More irritable Objective Labs 02/12/25 05:18 02/12/25 05:18 Labs: Laboratory Results - last 24 hr 02/12/25 05:18 WBC 6.4 RBC 3.13 L Hgb 10.0 L Hct 30.0 L MCV 96 MCH 31.9 MCHC 33.3 RDW Std Deviation 53.2 H Plt Count 230 D Neut % (Auto) 61 Lymph % (Auto) 23 [place] % (Auto) 12 Eos % (Auto) 4 Baso % (Auto) 1 Neut # (Auto) 3.9 Lymph # (Auto) 1.5 [place] # (Auto) 0.8 Eos # (Auto) 0.2 Baso # (Auto) 0.1 Immature Gran # (Auto) 0.01 H Absolute Nucleated RBC 0.00 Immature Gran % 0 Nucleated RBC % 0 Sodium 142 Potassium 4.7 D Chloride 107 Carbon Dioxide 25.1 Anion Gap 10 BUN 53 H Creatinine 2.8 H Estim Creat Clear Calc 15.2 L eGFR 18 L BUN/Creatinine Ratio 19 Glucose 92 Calculated Osmolality 297 H Calcium 7.7 L Corrected Calcium 8.0 L Phosphorus 4.0 Magnesium 1.8 Total Bilirubin 0.2 L AST 15 ALT 14 Alkaline Phosphatase 91 Total Protein 5.9 Albumin 3.6 Globulin 2.3 Albumin/Globulin Ratio 1.6 Quality Measures Quality Measures none Advance care planning discussed with:: patient Assessment & Plan Assessment Current Active Medications: Generic Name Dose Route Start Last Admin Trade Name Freq PRN Reason Stop Dose Admin Acetaminophen 650 mg 02/10/25 17:34 02/11/25 17:15 Acetaminophen 325 Mg Tablet PO 03/12/25 17:33 650 mg Q6H PRN Administration Fever >100.4 or Pain 1-3 Albuterol/Ipratropium 3 ml 02/10/25 17:38 Albuterol/Ipratropium (Duoneb) Rt Dee 3 Ml Nebu INH 03/12/25 18:59 Q4HRRT PRN SHORTNESS OF BREATH Bumetanide 1 mg 02/11/25 09:00 02/12/25 08:07 Bumetanide Inj 0.25 Mg/Ml Vial 4 Ml IVP 03/13/25 08:59 1 mg QDAY KENNEDY Administration Carvedilol 6.25 mg 02/11/25 08:00 02/12/25 08:06 Carvedilol 3.125 Mg Tablet PO 03/13/25 07:59 6.25 mg BIDWM KENNEDY Administration Clonidine 0.1 mg 02/10/25 21:00 02/12/25 08:05 Clonidine Hcl 0.1 Mg Tablet PO 03/12/25 20:59 0.1 mg BID KENNEDY Administration Heparin Sodium (Porcine) 5,000 unit 02/10/25 21:00 02/12/25 08:04 Heparin Sod Inj 5000 Unit/Ml Vial SC 02/24/25 20:59 5,000 unit Q12HR KENNEDY Administration Heparin Sodium (Porcine) 3,800 unit 02/10/25 18:22 Heparin Sod Inj 1000 Unit/Ml Vial 10 Ml INDWELLCAT 02/24/25 18:21 X1 PRN DIALYSIS Protocol Hydralazine HCl 50 mg 02/12/25 14:00 Hydralazine Hcl 25 Mg Tablet PO 03/14/25 13:59 TID KENNEDY Albumin Human 25 gm in 100 mls @ 100 mls/hr 02/10/25 18:24 Albuminar-25 Ivpb IV 02/13/25 18:23 QDAY PRN DIALYSIS Nifedipine 30 mg 02/11/25 09:00 02/12/25 08:06 Nifedipine Xl 30 Mg Tabcr PO 03/13/25 08:59 30 mg QDAY KENNEDY Administration Ondansetron HCl 4 mg 02/10/25 17:34 Ondansetron Inj 2 Mg/Ml Inj 2 Ml IVP 03/12/25 17:33 Q6H PRN NAUSEA OR VOMITING Protocol Sennosides 1 tab 02/10/25 17:45 02/12/25 08:07 Senna Tablet PO 03/12/25 17:44 Not Given QDAY KENNEDY Protocol Plan 69-year-old female with past medical history of resistant hypertension, ESRD, breast cancer s/p resection and breast implant of right breast, COPD on home O2, and 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 Echo on 10/2024 that showed an EF of 45 to 50% Patient does not have any lower extremity edema Plan: Will continue with Bumex 1 mg IV daily Will continue with Coreg 6.25 mg twice daily with meals, clonidine 0.1 mg twice daily, increased hydralazine to mg 3 times daily, and continue nifedipine 30 mg daily Will continue monitoring #Hx of COPD Patient uses home O2 mostly at night Patient saturating well today on room air Plan: Marvin ordered O2 as needed #Housing instability Patient does not have a secured place to go back once discharged from the hospital as she has been having a lot of difficulty managing her appointments with physicians and getting the treatment she needs. Patient would benefit from snf facility Will see if patient qualifies for snf facility Disposition: Pending SNF auth/placement Diet: Renal GI prophylaxis: not indicated DVT prophylaxis: heparin sub cu Code: Full Case disclosed with Attending Dr. Dillan Roblero PGY1 Disclaimer: Even though this this note was dictated by speech recognition and even though it was carefully revised there may still be minor errors in leadership program associate due to voice recognition software. Attending Provider Attestation/Addendum I attest that I was physically present for the evaluation, physical examination, lab and imaging review of the patient with the residents. I discussed the case with the residents and agree with the findings and plans of care as documented above. At bedside today, patient is stated she is feeling well and does not have any complaints. Discussed with physical therapy, recommended patient to be discharged to SNF for continuation of physical therapy. Vital signs are stable except for blood pressure. We will adjust her antihypertensive regimen. Lab results are stable as well. Patient is stable for discharge medically, awaiting placement to SNF. Devin Grimaldo MD
[2025-02-12] MEDS: hydrALAZINE HCL 25 MG TABLET 50 MG PO ×2 (12:59→21:29)
[2025-02-13] VITALS (34 sets, daily range): BP systolic 108–197; BP diastolic 69–111; PULSE 54–78; RESP 16–95; TEMP 36.2–36.8; O2SAT 94–97; BMI 23.3
--- NOTE | 2025-02-13 01:21 | PC.NURSE ---
MD Canales made aware of pt BP 173/87, per MD will check on pts chart.
[2025-02-13] MEDS: hydrALAZINE INJ 20 MG/ML VIAL 10 MG IVP (01:44)
[2025-02-13] MEDS: hydrALAZINE HCL 25 MG TABLET 50 MG PO ×3 (05:07→20:30)
[2025-02-13 06:25] LABS: Basophils # (Auto) 0.1 Thou/mm3 (0.0-0.2); Basophils % (Auto) 1 % (0-2.5); Eosinophils # (Auto) 0.3 Thou/mm3 (0.0-0.5); Eosinophils % (Auto) 4 % (0-10); Hematocrit 31.4 % (36.0-46.0); Hemoglobin 10.1 g/dL (12.0-16.0); Immature Granulocytes % (Auto) 0 % (0-0); Immature Granulocytes Auto 0.02 Thou/mm3 (0.00-0.00); Lymphocytes # (Auto) 1.2 Thou/mm3 (1.0-4.8); Lymphocytes % (Auto) 18 % (10-50); Mean Corpuscular HGB Conc 32.2 g/dl (31.0-37.0); Mean Corpuscular Hemoglobin 31.5 pg (25.0-35.0); Mean Corpuscular Volume 98 fL (80-100); Monocytes # (Auto) 0.7 Thou/mm3 (0.0-0.8); Monocytes % (Auto) 11 % (0-12); Neutrophils # (Auto) 4.4 Thou/mm3 (1.8-7.7); Neutrophils % (Auto) 66 % (37-80); Nucleated Red Blood Cell % 0 /100 WBC (0); Platelet Count 237 Thou/mm3 (140-440); RDW Standard Deviation 53.6 fL (36.4-46.3); Red Blood Count 3.21 Miln/mm3 (4.00-5.20); White Blood Count 6.7 Thou/mm3 (3.6-11.0)
[2025-02-13 06:38] LABS: Alanine Aminotransferase 11 U/L (10-49); Albumin, Serum 3.7 gm/dL (3.4-4.8); Albumin/Globulin Ratio 1.7 (1.2-2.2); Alkaline Phosphatase 93 U/L (46-116); Anion Gap 10 (7-16); Aspartate Amino Transferase 11 U/L (0-34); BUN/Creatinine Ratio 19 Ratio (12-20); Bilirubin,Total 0.2 mg/dL (0.3-1.2); Blood Urea Nitrogen 54 mg/dL (9-23); Calcium 8.1 mg/dL (8.3-10.6); Calcium (Corrected) 8.3 mg/dL (8.5-10.1); Carbon Dioxide 23.5 mMol/L (20.0-31.0); Chloride 108 mMol/L (98-107); Creatinine (Component) 2.9 mg/dL (0.6-1.3); Estimated Creatinine Clearance 14.7 mL/min (>60); Globulin 2.2 gm/dL (2.3-3.5); Glucose 102 mg/dL (74-106); Magnesium 2.1 mg/dL (1.6-2.6); Osmolality,Calculated 295 (275-295); Phosphorous 3.3 mg/dL (2.4-5.1); Potassium 4.7 mMol/L (3.4-5.1); Sodium 141 mMol/L (136-145); Total Protein 5.9 gm/dL (5.7-8.2); eGFR 17 See Note
--- NOTE | 2025-02-13 09:45 | PD.NEPHPROG ---
Documentation for date of: 02/13/25 Subjective Subjective Interval history: Ms. Freed is a 69-year-old female with a past medical history of end-stage renal disease on hemodialysis Thursday and , hypertension, CHF, history of breast cancer s/p resection, COPD, methamphetamine abuse disorder was recently admitted to [facility] with congestive cardiac failure and COPD exacerbation and ended up on dialysis for cardiorenal syndrome. She was discharged to her boyfriend's home. However patient became homeless as boyfriend was not able to take care of her and she presented to the emergency department with shortness of breath. Renal consultation was requested for need for dialysis. Patient currently being dialyzed twice weekly at the [facility] dialysis unit via right IJ PermCath. Blood pressure 156/75, heart rate 71. WBC 7.9, hemoglobin 10.3, platelets 224. Sodium 143, potassium 4.6, BUN 71, creatinine 3.3, GFR 14. Bicarbonate 16.1. Calcium 6.6, LFTs normal. BNP 783. Urinalysis shows 2+ protein with no bacteria. Urine tox screen negative. Chest x-ray showed fluid overload. C-spine x-ray showed no cervical fracture. Patient admitted to medical floor and renal consultation requested for need for dialysis. Patient currently seen on dialysis. 02/12/2025 cheerful. Denies any nausea, vomiting.Patient currently seen in medical floor. Resting comfortably. No chest pain, shortness of breath. Next dialysis scheduled for Thursday. Patient goes twice weekly. 02/13/2025 patient currently seen in dialysis. Denies any chest pain, shortness of breath. She is scheduled for Thursday, Thursday schedule in the outpatient setting. Next dialysis will be Thursday. Review of Systems Review of Systems Narrative Review of Systems: CONSTITUTIONAL: Patient denies any fever, chills. HEENT: Denies any visual disturbances or hearing problems. CARDIOVASCULAR: Patient denies any chest pain. Denies any shortness of breath, swelling in the lower extremities. PULMONARY: Patient denies any shortness of breath GASTROINTESTINAL: Patient denies any abdominal pain, constipation, nausea, vomiting, diarrhea. GENITOURINARY: Patient denies any urinary symptoms of burning or frequency or hematuria, denies any form in the urine. SKIN: Denies any rash. MUSCULOSKELETAL: Complaining of gait imbalance NEUROLOGICAL: Denies any neurological problems of strokes, seizures or confusion. Denies any memory problems. PSYCHIATRIC: Denies any depression or anxiety. LYMPHATICS : No lymphadenopathy Exam Vital Signs Temp Pulse Resp BP Pulse Ox O2 Del Method 36.8 C 54 L 18 191/104 H 97 Room Air 02/13/25 11:17 02/13/25 11:17 02/13/25 11:17 02/13/25 11:17 02/13/25 11:17 02/13/25 08:00 Narrative Exam GENERAL APPEARANCE: Patient currently seen in medical floor NECK: Neck supple, no JVD or bruit CARDIOVASCULAR: Heart regular, no murmurs LUNGS/CHEST: Decreased breath sounds bilaterally ABDOMEN: Soft, nontender, nondistended. No masses. Normal bowel sounds. EXTREMITIES: 1+ edema in the lower extremities SKIN: Skin exam normal without any rashes . Right IJ PermCath MUSCULOSKELETAL: in bed, able to move her extremities PSYCHIATRIC: Normal mood, affect LYMPHATICS: No lymphadenopathy noted NEUROLOGICAL : No neurological deficits Objective Labs 02/13/25 05:43 02/13/25 05:43 Labs: Laboratory Results - last 24 hr 02/13/25 05:43 WBC 6.7 RBC 3.21 L Hgb 10.1 L Hct 31.4 L MCV 98 MCH 31.5 MCHC 32.2 RDW Std Deviation 53.6 H Plt Count 237 Neut % (Auto) 66 Lymph % (Auto) 18 [place] % (Auto) 11 Eos % (Auto) 4 Baso % (Auto) 1 Neut # (Auto) 4.4 Lymph # (Auto) 1.2 [place] # (Auto) 0.7 Eos # (Auto) 0.3 Baso # (Auto) 0.1 Immature Gran # (Auto) 0.02 H Absolute Nucleated RBC 0.00 Immature Gran % 0 Nucleated RBC % 0 Sodium 141 Potassium 4.7 Chloride 108 H Carbon Dioxide 23.5 Anion Gap 10 BUN 54 H Creatinine 2.9 H Estim Creat Clear Calc 14.7 L eGFR 17 L BUN/Creatinine Ratio 19 Glucose 102 Calculated Osmolality 295 Calcium 8.1 L Corrected Calcium 8.3 L Phosphorus 3.3 Magnesium 2.1 Total Bilirubin 0.2 L AST 11 ALT 11 Alkaline Phosphatase 93 Total Protein 5.9 Albumin 3.7 Globulin 2.2 L Albumin/Globulin Ratio 1.7 Assessment & Plan Additional Assessment & Plan Additional Plan: Johana Freed is a 69-year-old female with PMHx of HFrEF (EF 30 to 35%, 06/2024), CKD stage IV/V, COPD, hypertension, breast cancer status post bilateral mastectomy, and history of methamphetamine use who was admitted for management of decompensated CHF exacerbation and hypertension. Nephrology consulted for need for dialysis #Acute on chronic kidney injury-- ATN vs cardiorenal syndrome type 2 Continue with diuretics, fluid restriction. Labs reviewed today and stable. Patient currently seen on dialysis. Tolerating dialysis without any problems. Hemodialysis for 3 hours, 2K, ultrafiltration 2-3 L, Epogen 6000, no heparin ordered. Plan of care discussed with the dialysis nurse. Please see dialysis flowsheet for further details. #Hypertension # compensated heart failure #HFrEF #History of COPD #Cirrhosis # h/o Polysubstance abuse - Continue management per primary team Patient currently needs placement with a dialysis catheter and need for dialysis. Thank you Devin for allowing me to participate in the care of Ms. Freed
--- NOTE | 2025-02-13 10:01 | PC.NURSE ---
MD ALVES AT BEDSIDE UF GOAL INCREASED TO 2.9L PER MD TOLERATED WILL CONT. TO MONITOR
--- NOTE | 2025-02-13 10:20 | PD.RESPRO ---
Documentation for date of: 02/13/25 Subjective Subjective Interval history: Patient was seen and examined at bedside this morning. No acute overnight events. Patient's blood pressure still remains uncontrolled. Otherwise labs look fairly unchanged from days prior. Will continue with labs only on days of hemodialysis. No other complaints this time. Still pending [facility] authorization. Exam Vital Signs Temp Pulse Resp BP Pulse Ox O2 Del Method 97.6 F 72 17 192/97 H 95 Room Air 02/13/25 08:00 02/13/25 10:00 02/13/25 08:00 02/13/25 10:00 02/13/25 08:00 02/13/25 08:00 Narrative Exam General: A/O x3, no acute distress Eyes: PERRL, EOMI. Anicteric, vision grossly intact. Ears: No ear pain, no ear discharge, Hearing grossly intact. Nose: No nasal discharge. Mouth/Throat: Moist mucous membranes, no redness, no lesions. Neck: Neck supple, non-tender, no cervical lymphadenopathy. Lungs: Clear KARIE to auscultation and percussion, No accessory muscle use. Cardio: Normal S1/S2, regular rhythm, no murmurs, no JVD Abdomen: Soft, non-tender, no palpable masses, peristalsis present, no guarding or rebound. Extremities: Symmetrical, no significant deformities, no peripheral edema , non-tender, peripheral pulses presents. Skin: No rashes, no lesions, warm to touch. Neuro: No focal neurological deficits. motor and sensory intact Psych: More cooperative Objective Labs 02/13/25 05:43 02/13/25 05:43 Labs: Laboratory Results - last 24 hr 02/13/25 05:43 WBC 6.7 RBC 3.21 L Hgb 10.1 L Hct 31.4 L MCV 98 MCH 31.5 MCHC 32.2 RDW Std Deviation 53.6 H Plt Count 237 Neut % (Auto) 66 Lymph % (Auto) 18 [place] % (Auto) 11 Eos % (Auto) 4 Baso % (Auto) 1 Neut # (Auto) 4.4 Lymph # (Auto) 1.2 [place] # (Auto) 0.7 Eos # (Auto) 0.3 Baso # (Auto) 0.1 Immature Gran # (Auto) 0.02 H Absolute Nucleated RBC 0.00 Immature Gran % 0 Nucleated RBC % 0 Sodium 141 Potassium 4.7 Chloride 108 H Carbon Dioxide 23.5 Anion Gap 10 BUN 54 H Creatinine 2.9 H Estim Creat Clear Calc 14.7 L eGFR 17 L BUN/Creatinine Ratio 19 Glucose 102 Calculated Osmolality 295 Calcium 8.1 L Corrected Calcium 8.3 L Phosphorus 3.3 Magnesium 2.1 Total Bilirubin 0.2 L AST 11 ALT 11 Alkaline Phosphatase 93 Total Protein 5.9 Albumin 3.7 Globulin 2.2 L Albumin/Globulin Ratio 1.7 Quality Measures Quality Measures none Advance care planning discussed with:: patient Assessment & Plan Assessment Current Active Medications: Generic Name Dose Route Start Last Admin Trade Name Freq PRN Reason Stop Dose Admin Acetaminophen 650 mg 02/10/25 17:34 02/11/25 17:15 Acetaminophen 325 Mg Tablet PO 03/12/25 17:33 650 mg Q6H PRN Administration Fever >100.4 or Pain 1-3 Albuterol/Ipratropium 3 ml 02/10/25 17:38 Albuterol/Ipratropium (Duoneb) Rt Dee 3 Ml Nebu INH 03/12/25 18:59 Q4HRRT PRN SHORTNESS OF BREATH Bumetanide 1 mg 02/11/25 09:00 02/12/25 08:07 Bumetanide Inj 0.25 Mg/Ml Vial 4 Ml IVP 03/13/25 08:59 1 mg QDAY KENNEDY Administration Carvedilol 6.25 mg 02/11/25 08:00 02/12/25 16:54 Carvedilol 3.125 Mg Tablet PO 03/13/25 07:59 6.25 mg BIDWM KENNEDY Administration Clonidine 0.1 mg 02/10/25 21:00 02/12/25 21:29 Clonidine Hcl 0.1 Mg Tablet PO 03/12/25 20:59 0.1 mg BID KENNEDY Administration Heparin Sodium (Porcine) 5,000 unit 02/10/25 21:00 02/12/25 21:29 Heparin Sod Inj 5000 Unit/Ml Vial SC 02/24/25 20:59 5,000 unit Q12HR KENNEDY Administration Heparin Sodium (Porcine) 3,800 unit 02/10/25 18:22 Heparin Sod Inj 1000 Unit/Ml Vial 10 Ml INDWELLCAT 02/24/25 18:21 X1 PRN DIALYSIS Protocol Hydralazine HCl 50 mg 02/12/25 14:00 02/13/25 05:07 Hydralazine Hcl 25 Mg Tablet PO 03/14/25 13:59 50 mg TID KENNEDY Administration Albumin Human 25 gm in 100 mls @ 100 mls/hr 02/10/25 18:24 Albuminar-25 Ivpb IV 02/13/25 18:23 QDAY PRN DIALYSIS Nifedipine 60 mg 02/13/25 09:00 Nifedipine Xl 30 Mg Tabcr PO 03/15/25 08:59 QDAY KENNEDY Ondansetron HCl 4 mg 02/10/25 17:34 Ondansetron Inj 2 Mg/Ml Inj 2 Ml IVP 03/12/25 17:33 Q6H PRN NAUSEA OR VOMITING Protocol Sennosides 1 tab 02/10/25 17:45 02/12/25 08:07 Senna Tablet PO 03/12/25 17:44 Not Given QDAY [facility] Protocol Valsartan 40 mg 02/13/25 09:06 Valsartan 40 Mg Tablet PO 03/15/25 08:59 QDAY KENNEDY Plan 69-year-old female with past medical history of resistant hypertension, ESRD, breast cancer s/p resection and breast implant of right breast, COPD on home O2, and 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 Echo on 10/2024 that showed an EF of 45 to 50% Patient does not have any lower extremity edema Plan: Will continue with Bumex 1 mg IV daily Will continue with Coreg 6.25 mg twice daily with meals, clonidine 0.1 mg twice daily, continue hydralazine to mg 3 times daily, and increased nifedipine to 60 mg daily and added home valsartan 40mg qday Will continue monitoring #Hx of COPD Patient uses home O2 mostly at night Patient saturating well today on room air Plan: Marvin ordered O2 as needed #Housing instability Patient does not have a secured place to go back once discharged from the hospital as she has been having a lot of difficulty managing her appointments with physicians and getting the treatment she needs. Patient would benefit from detention facility Will see if patient qualifies for detention facility Disposition: Pending SNF auth/placement Diet: Renal GI prophylaxis: not indicated DVT prophylaxis: heparin sub cu Code: Full Case disclosed with Attending Dr. Dillan Roblero PGY1 Disclaimer: Even though this this note was dictated by speech recognition and even though it was carefully revised there may still be minor errors in surgical technologist due to voice recognition software. Attending Provider Attestation/Addendum I attest that I was physically present for the evaluation, physical examination, lab and imaging review of the patient with the residents. I discussed the case with the residents and agree with the findings and plans of care as documented above. Patient seen in dialysis today. Appears comfortable, denies any complaints. Her shortness of breath has improved significantly. Vital signs and lab results have been stable. Awaiting placement. Devin Grimaldo MD
[2025-02-13] MEDS: cloNIDine HCL 0.1 MG TABLET PO ×2 (11:05→20:28)
[2025-02-13] MEDS: carVEDILOL 3.125 MG TABLET 6.25 MG PO ×2 (11:06→17:29)
[2025-02-13] MEDS: NIFEdipine XL 30 MG TABCR 60 MG PO (11:06)
[2025-02-13 11:51] LABS: Syphilis Reactive (Nonreactive)
[2025-02-13 11:52] LABS: MHATP/TP-PA* See Sep Rpt
[2025-02-13] MEDS: VALSARTAN 40 MG TABLET PO (11:56)
[2025-02-13] MEDS: HEPARIN SOD INJ 5000 UNIT/ML VIAL SC ×2 (11:57→20:28)
[2025-02-13] MEDS: BUMETANIDE INJ 0.25 MG/ML VIAL 4 ML 1 MG IVP (11:57)
--- NOTE | 2025-02-13 13:16 | PC.SS ---
Late entry: note from 02/12/2025 SS met with pt at bedside to discuss discharge planning and determined pt would like to go to SNF; pt did not have a preference
[2025-02-13 13:39] LABS: HIV (1&2) Antibody Rapid Non-Reactive
--- NOTE | 2025-02-13 13:48 | PC.SS ---
Late Entry: initial completed 02/12/2025 Johana Freed is 69 year old female admitted to [facility] for SOB. SS conducted bedside contact with the patient to complete initial assessment and to discuss discharge planning.? SW used all precautionary measures to complete initial. Role and reason for the contact was explained to Johana. Pt is alert and oriented times 4. Patient confirmed demographic information and address matches facesheet. Patient identifies Jonh Jeffries, matt, as her surrogate decision maker. Pt states prior to hospitalization she has difficulty completing ADLs and has asked to go to SNF upon discharge. Pt confirmed history of mental health and has seen a counselor in past but currently not on medication or pt has history of substance abuse. Pts PCP is Almita Pulido. SS will need to follow up with SNF for placement. DC Plan: SNF Contact: matt Anna, Address: Confirmed on face sheet PCP: Almita Pulido
[2025-02-13] MEDS: HEPARIN SOD INJ 1000 UNIT/ML VIAL 10 ML 3800 UNIT INDWELLCAT (18:46)
[2025-02-13] MEDS: ACETAMINOPHEN 325 MG TABLET 650 MG PO (23:58)
[2025-02-14] VITALS (16 sets, daily range): BP systolic 124–162; BP diastolic 67–96; PULSE 61–79; RESP 14–19; TEMP 36.1–36.3; O2SAT 95–98
[2025-02-14] MEDS: hydrALAZINE HCL 25 MG TABLET 50 MG PO ×3 (05:28→22:29)
[2025-02-14] MEDS: PEN G BENZ (Bicillin LA) 2.4 MMU/4 ML SYRG IM (09:04)
[2025-02-14] MEDS: HEPARIN SOD INJ 5000 UNIT/ML VIAL SC ×2 (09:05→20:28)
[2025-02-14] MEDS: BUMETANIDE INJ 0.25 MG/ML VIAL 4 ML 1 MG IVP (09:05)
[2025-02-14] MEDS: NIFEdipine XL 30 MG TABCR 60 MG PO (09:06)
[2025-02-14] MEDS: cloNIDine HCL 0.1 MG TABLET PO ×2 (09:06→20:26)
[2025-02-14] MEDS: carVEDILOL 3.125 MG TABLET 6.25 MG PO ×2 (09:06→17:12)
[2025-02-14] MEDS: SENNA TABLET 1 TAB PO (09:07)
[2025-02-14] MEDS: VALSARTAN 40 MG TABLET PO (09:09)
--- NOTE | 2025-02-14 09:26 | PC.SS ---
SS met with patient at bedside and informed her that the only facility that accepted her was [facility], do to her insurance not being contracted with facilities. Patient agreeable to discharge to [facility]. Jessie from [facility] informed SS that she will be submitting for authorization, however patients insurance is [employer] insurance and therefore does not know if they will authorize SNF placement.
--- NOTE | 2025-02-14 09:28 | ESPR_ITS ---
Documentation for date of: 02/14/25 Subjective Subjective Interval history: Ms. Freed is a 69-year-old female with a past medical history of end-stage renal disease on hemodialysis Thursday and , hypertension, CHF, history of breast cancer s/p resection, COPD, methamphetamine abuse disorder was recently admitted to [facility] with congestive cardiac failure and COPD exacerbation and ended up on dialysis for cardiorenal syndrome. She was discharged to her boyfriend's home. However patient became homeless as boyfriend was not able to take care of her and she presented to the emergency department with shortness of breath. Renal consultation was requested for need for dialysis. Patient currently being dialyzed twice weekly at the [facility] dialysis unit via right IJ PermCath. Blood pressure 156/75, heart rate 71. WBC 7.9, hemoglobin 10.3, platelets 224. Sodium 143, potassium 4.6, BUN 71, creatinine 3.3, GFR 14. Bicarbonate 16.1. Calcium 6.6, LFTs normal. BNP 783. Urinalysis shows 2+ protein with no bacteria. Urine tox screen negative. Chest x-ray showed fluid overload. C- spine x-ray showed no cervical fracture. Patient admitted to medical floor and renal consultation requested for need for dialysis. Patient currently seen on dialysis. 02/12/2025 cheerful. Denies any nausea, vomiting.Patient currently seen in medical floor. Resting comfortably. No chest pain, shortness of breath. Next dialysis scheduled for Thursday. Patient goes twice weekly. 02/13/2025 patient currently seen in dialysis. Denies any chest pain, shortness of breath. She is scheduled for Thursday, Thursday schedule in the outpatient setting. Next dialysis will be Thursday. 02/14/2025: Patient seen and examined at bedside, resting comfortably. Denies fever, chills, chest pain, shortness of breath, nausea, vomiting. Overall doing well. [facility] dialysis session was Thursday. WBC 6.7, hemoglobin 10.1, sodium 141, potassium 4.7, bicarb 23.5, BUN 54, creatinine 2.9, EGFR 17. 2 L in, 1 L urinary output. Exam Vital Signs Temp Pulse Resp BP Pulse Ox O2 Del Method 97.3 F 62 19 147/81 H 95 Room Air 02/14/25 08:00 02/14/25 09:09 02/14/25 08:00 02/14/25 09:09 02/14/25 08:00 02/14/25 08:00 Narrative Exam GENERAL APPEARANCE: Patient currently seen in medical floor, resting comfortably NECK: Neck supple, no JVD or bruit CARDIOVASCULAR: Heart regular, no murmurs LUNGS/CHEST: Decreased breath sounds bilaterally, no crackles or wheezing ABDOMEN: Soft, nontender, nondistended. No masses. Normal bowel sounds. EXTREMITIES: Trace edema in the lower extremities SKIN: Skin exam normal without any rashes. Right IJ PermCath MUSCULOSKELETAL: in bed, able to move her extremities NEUROLOGICAL : No neurological deficits Objective Labs 02/13/25 05:43 02/13/25 05:43 Labs: Laboratory Results - last 24 hr 02/13/25 05:43 Syphilis Serology Reactive A HIV 1&2 Antibody Rapid Non-Reactive Quality Measures Quality Measures VTE prophylaxis Advance care planning discussed with:: patient Assessment & Plan Assessment Current Active Medications: Generic Name Dose Route Start Last Admin Trade Name Freq PRN Reason Stop Dose Admin Acetaminophen 650 mg 02/10/25 17:34 02/13/25 23:58 Acetaminophen 325 Mg Tablet PO 03/12/25 17:33 650 mg Q6H PRN Administration Fever >100.4 or Pain 1-3 Albuterol/Ipratropium 3 ml 02/10/25 17:38 Albuterol/Ipratropium (Duoneb) Rt Dee 3 Ml Nebu INH 03/12/25 18:59 Q4HRRT PRN SHORTNESS OF BREATH Bumetanide 1 mg 02/11/25 09:00 02/14/25 09:05 Bumetanide Inj 0.25 Mg/Ml Vial 4 Ml IVP 03/13/25 08:59 1 mg QDAY KENNEDY Administration Carvedilol 6.25 mg 02/11/25 08:00 02/14/25 09:06 Carvedilol 3.125 Mg Tablet PO 03/13/25 07:59 6.25 mg BIDWM KENNEDY Administration Clonidine 0.1 mg 02/10/25 21:00 02/14/25 09:06 Clonidine Hcl 0.1 Mg Tablet PO 03/12/25 20:59 0.1 mg BID KENNEDY Administration Heparin Sodium (Porcine) 5,000 unit 02/10/25 21:00 02/14/25 09:05 Heparin Sod Inj 5000 Unit/Ml Vial SC 02/24/25 20:59 5,000 unit Q12HR KENNEDY Administration Heparin Sodium (Porcine) 3,800 unit 02/10/25 18:22 02/13/25 18:46 Heparin Sod Inj 1000 Unit/Ml Vial 10 Ml INDWELLCAT 02/24/25 18:21 3,800 unit X1 PRN Administration DIALYSIS Protocol Hydralazine HCl 50 mg 02/12/25 14:00 02/14/25 05:28 Hydralazine Hcl 25 Mg Tablet PO 03/14/25 13:59 50 mg TID KENNEDY Administration Nifedipine 60 mg 02/13/25 09:00 02/14/25 09:06 Nifedipine Xl 30 Mg Tabcr PO 03/15/25 08:59 60 mg QDAY KENNEDY Administration Ondansetron HCl 4 mg 02/10/25 17:34 Ondansetron Inj 2 Mg/Ml Inj 2 Ml IVP 03/12/25 17:33 Q6H PRN NAUSEA OR VOMITING Protocol Sennosides 1 tab 02/10/25 17:45 02/14/25 09:07 Senna Tablet PO 03/12/25 17:44 1 tab QDAY KENNEDY Administration Protocol Valsartan 40 mg 02/13/25 12:00 02/14/25 09:09 Valsartan 40 Mg Tablet PO 03/15/25 11:59 40 mg QDAY KENNEDY Administration Plan Johana Freed is a 69-year-old female with PMHx of HFrEF (EF 30 to 35%, 06/2024), CKD stage IV/V, COPD, hypertension, breast cancer status post bilateral mastectomy, and history of methamphetamine use who was admitted for management of decompensated CHF exacerbation and hypertension. Nephrology consulted for need for dialysis. #Acute on chronic kidney injury-- ATN vs cardiorenal syndrome type 2 Patient currently receives scheduled dialysis Thursday and Thursday. Plan of care discussed with the dialysis nurse. Please see dialysis flowsheet for further details. Patient not experiencing significant fluid overload at this time. - Next hemodialysis session Thursday - Avoid nephrotoxins - Renally dose meds - Monitor daily renal function #Hypertension #Compensated heart failure #HFrEF #History of COPD #Cirrhosis #h/o Polysubstance abuse - Continue management per primary team - Patient currently needs placement with a dialysis catheter and need for dialysis. Thank you for allowing us to participate in the care of this patient. Plan of care discussed with attending Dr. Pulido. Reji Mac MD PGY?1 Attending Provider Attestation/Addendum Patient seen and examined with resident physician Dr. Burgos. Note reviewed, agree with findings and recommendations. Next dialysis scheduled for Thursday. Patient only goes to dialysis twice weekly. Pending placement. STI screen came back positive for syphilis. Spoke to primary team-1 dose of benzathine penicillin given
--- NOTE | 2025-02-14 11:35 | PC.SS ---
SS follow up note; Patient is [facility].
--- NOTE | 2025-02-14 13:40 | ESPR_ITS ---
<Statement entered by Kaila Asif MD - 02/14/25 14:37> Patient seen and examined at bedside. No acute overnight events reported. Patient tested positive for syphilis, and received 1 IM injection of penicillin G 2,400,000 units. Patient was educated and advised to report to patient's partner. Otherwise, patient is continuing hemodialysis as scheduled. Patient is tolerating her blood pressure medications, Bumex, Coreg, clonidine, hydralazine, nifedipine and losartan. Pending authorization to [facility] facility at this time for better housing stability. I discussed with and supervised the campus recruiting internship physician who took care of this patient. I personally saw and examined the patient and discussed the assessment and plan with the entire medicine team, including my attending Dr. Gimenez, I agree with most of the assessment and plan as documented below Kaila Asif M.D. PGY-2 Disclaimer: Despite multiple revisions, due to the dictation software being used, the document bellow may not be free of grammatical errors including phonetic/typographic errors. However, this does not deter from our commitment to providing health care in the patient's best interest in mind. Documentation for date of: 02/14/25 Subjective Subjective Interval history: Patient was seen and examined at bedside this morning. No acute overnight events. Patient continues to breathe without any difficulties and does not have any lower extremity edema. Patient syphilis did come back positive and she was notified of this. Blood pressure has been better controlled overnight. She had no other complaints at this time. Still pending SNF authorization.Will only do labs on the days of HD. Exam Vital Signs Temp Pulse Resp BP Pulse Ox O2 Del Method 97.0 F 73 18 134/73 H 95 Room Air 02/14/25 12:00 02/14/25 12:00 02/14/25 12:00 02/14/25 12:00 02/14/25 12:00 02/14/25 12:00 Narrative Exam General: A/O x3, no acute distress Eyes: PERRL, EOMI. Anicteric, vision grossly intact. Ears: No ear pain, no ear discharge, Hearing grossly intact. Nose: No nasal discharge. Mouth/Throat: Moist mucous membranes, no redness, no lesions. Neck: Neck supple, non-tender, no cervical lymphadenopathy. Lungs: Clear KARIE to auscultation and percussion, No accessory muscle use. Cardio: Normal S1/S2, regular rhythm, no murmurs, no JVD Abdomen: Soft, non-tender, no palpable masses, peristalsis present, no guarding or rebound. Extremities: Symmetrical, no significant deformities, no peripheral edema , non-tender, peripheral pulses presents. Skin: No rashes, no lesions, warm to touch. Neuro: No focal neurological deficits. motor and sensory intact Psych: cooperative Objective Labs 02/13/25 05:43 02/13/25 05:43 Quality Measures Quality Measures VTE prophylaxis Advance care planning discussed with:: patient Assessment & Plan Assessment Current Active Medications: Generic Name Dose Route Start Last Admin Trade Name Freq PRN Reason Stop Dose Admin Acetaminophen 650 mg 02/10/25 17:34 02/13/25 23:58 Acetaminophen 325 Mg Tablet PO 03/12/25 17:33 650 mg Q6H PRN Administration Fever >100.4 or Pain 1-3 Albuterol/Ipratropium 3 ml 02/10/25 17:38 Albuterol/Ipratropium (Duoneb) Rt Dee 3 Ml Nebu INH 03/12/25 18:59 Q4HRRT PRN SHORTNESS OF BREATH Bumetanide 1 mg 02/11/25 09:00 02/14/25 09:05 Bumetanide Inj 0.25 Mg/Ml Vial 4 Ml IVP 03/13/25 08:59 1 mg QDAY KENNEDY Administration Carvedilol 6.25 mg 02/11/25 08:00 02/14/25 09:06 Carvedilol 3.125 Mg Tablet PO 03/13/25 07:59 6.25 mg BIDWM KENNEDY Administration Clonidine 0.1 mg 02/10/25 21:00 02/14/25 09:06 Clonidine Hcl 0.1 Mg Tablet PO 03/12/25 20:59 0.1 mg BID KENNEDY Administration Heparin Sodium (Porcine) 5,000 unit 02/10/25 21:00 02/14/25 09:05 Heparin Sod Inj 5000 Unit/Ml Vial SC 02/24/25 20:59 5,000 unit Q12HR KENNEDY Administration Heparin Sodium (Porcine) 3,800 unit 02/10/25 18:22 02/13/25 18:46 Heparin Sod Inj 1000 Unit/Ml Vial 10 Ml INDWELLCAT 02/24/25 18:21 3,800 unit X1 PRN Administration DIALYSIS Protocol Hydralazine HCl 50 mg 02/12/25 14:00 02/14/25 05:28 Hydralazine Hcl 25 Mg Tablet PO 03/14/25 13:59 50 mg TID KENNEDY Administration Nifedipine 60 mg 02/13/25 09:00 02/14/25 09:06 Nifedipine Xl 30 Mg Tabcr PO 03/15/25 08:59 60 mg QDAY KENNEDY Administration Ondansetron HCl 4 mg 02/10/25 17:34 Ondansetron Inj 2 Mg/Ml Inj 2 Ml IVP 03/12/25 17:33 Q6H PRN NAUSEA OR VOMITING Protocol Sennosides 1 tab 02/10/25 17:45 02/14/25 09:07 Senna Tablet PO 03/12/25 17:44 1 tab QDAY KENNEDY Administration Protocol Valsartan 40 mg 02/13/25 12:00 02/14/25 09:09 Valsartan 40 Mg Tablet PO 03/15/25 11:59 40 mg QDAY KENNEDY Administration Plan 69-year-old female with past medical history of resistant hypertension, ESRD, breast cancer s/p resection and breast implant of right breast, COPD on home O2, and 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 #Syphilis Patient had requested to have an STD panel done and syphilis came back positive. 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 Echo on 10/2024 that showed an EF of 45 to 50% Patient does not have any lower extremity edema Plan: Will continue with Bumex 1 mg IV daily Will continue with Coreg 6.25 mg twice daily with meals, clonidine 0.1 mg twice daily, continue hydralazine to mg 3 times daily, nifedipine to 60 mg daily and e valsartan 40mg qday Will continue monitoring #Hx of COPD Patient uses home O2 mostly at night Patient saturating well today on room air Plan: DuoNebs ordered O2 as needed #Electrolyte imbalance #Hypomagnesemia, resolved Disposition: Pending SNF auth/placement Diet: Renal GI prophylaxis: not indicated DVT prophylaxis: heparin sub cu Code: Full Case disclosed with Attending Dr. Gimenez and my senior Dr. Laya Roblero PGY1 Disclaimer: Even though this this note was dictated by speech recognition and even though it was carefully revised there may still be minor errors in top waddy due to voice recognition software. Attending Provider Attestation/Addendum 69-year-old history of breast cancer status post resection and right miky, COPD on 2 L supplemental oxygen, heart failure with reduced EF with EF 45-50% and subsequent end-stage renal disease on hemodialysis Thursday and Thursday who presented to the ER with shortness of breath found to have significant shortness of breath with fluid overload state and subsequently admitted. During course of hospitalization, patient underwent hemodialysis with improvement in shortness of breath. In addition, also noted to have syphilis for which received penicillin G injection. As of now, plan to continue monitoring the patient and anticipate discharge in the next 24-48 hours once able [place] [facility] [place] although unsure if patient will actually accept a [place] placement versus wanting to be discharged home.I reviewed above note and agree with findings and plans. I have also personally examined the patient with medicine team and went over assessment and plan with medical team including campus recruiting internship and resident physician.
--- NOTE | 2025-02-14 14:28 | PC.SS ---
Addendum entered by Daniella Lara 02/14/25 16:29: SS Follow up note; SS faxed DME order for Platform walker to [employer]. Original Note: SS follow Up: SS was contacted by PT joan and she informed PT will be evaluating patient again today.
--- NOTE | 2025-02-14 14:42 | PC.SS ---
Addendum entered by Daniella Lara 02/14/25 16:16: SS follow up note; SS was contacted Pepito from PT and he informed SS that patient was able to walk 300FT. Addendum entered by Daniella Lara 02/14/25 14:58: SS follow up note; SS attempted to contact patient's friend Jonh, however was unsuccessful. SS left Voicemail with contact number. Original Note: SS follow up note; SS met with patient at bedside as well as Kerry HUTTON to discuss discharge plan. Patient reported she was supposed to follow up with [facility] however did not show up. Patient reports she would like to discharge to [facility]. SS informed her if insurance does not authorize if she is willing to discharge to [facility]. SS contacted Ashley at [facility] [phone]. She informed SS that they were willing to accept patient, however patient never showed up. SS inquired about accepting patient, Ashley informed SS she would have to speak to the Account Support Rep in regards to accepting patient. SS will need to follow up tomorrow.
[2025-02-15] VITALS (14 sets, daily range): BP systolic 131–178; BP diastolic 78–105; PULSE 69–86; RESP 14–20; TEMP 36.1–36.7; O2SAT 92–97
[2025-02-15] MEDS: hydrALAZINE HCL 25 MG TABLET 50 MG PO ×3 (06:13→21:57)
--- NOTE | 2025-02-15 07:39 | PC.SS ---
Addendum entered by BRENNEN Herrera 02/15/25 14:44: SS follow up: Jessie with admissions at [facility] informs that she spoke with patient's insurance, and talked to Lesa who informed her that authorization remains pending. Addendum entered by BRENNEN Herrera 02/15/25 12:44: SS update: faxed over updated clinicals to insurance at fax: [phone] for their review. Addendum entered by BRENNEN Herrera 02/15/25 12:36: SS follow up: spoke with Lesa aligned with patient's insurance carrier at to get an update and she informs that it is under review . SW inquired about possible expediting the process as the patient is listed as a social admit. Lesa, informs that there is no form to expedite the process, her recommendation was to fax updated updated clinicals to fax: [phone]. Addendum entered by BRENNEN Herrera 02/15/25 09:39: SS follow up: met with patient at bedside to update on current status. Patient is aware authorization is pending with [facility]. Patient is also aware that [facility] is an option for her if she is receptive. Patient informs she would like to wait to hear from her insurance first if approved for SNF. Addendum entered by BRENNEN Herrera 02/15/25 08:31: SS follow up: attempted contact with patient's insurance carrier at , they were unavailable and provided a voicemail with call back number. Per Jessie at [facility], she will also be following up with patient's insurance as well as there is no new update as of now. Addendum entered by BRENNEN Herrera 02/15/25 07:44: SS follow up: contacted Ashley with [facility] regarding possibility of need for placement for the patient. Ashley informed the patient was previously scheduled to come by in person with her friend Jonh for potential placement, however patient did not follow through once discharged from the hospital on her previous admission. Per Ashley, if the patient is still interested their staff would be willing to meet with patient and potentially get her in for placement if eligible. Original Note: SS follow up: reached out to Jessie with admissions at [facility], to check on the status on insurance authorization. Pending response on updated status.
--- NOTE | 2025-02-15 09:15 | ESPR_ITS ---
Documentation for date of: 02/15/25 Subjective Subjective Interval history: Ms. Freed is a 69-year-old female with a past medical history of end-stage renal disease on hemodialysis Thursday and , hypertension, CHF, history of breast cancer s/p resection, COPD, methamphetamine abuse disorder was recently admitted to [facility] with congestive cardiac failure and COPD exacerbation and ended up on dialysis for cardiorenal syndrome. She was discharged to her boyfriend's home. However patient became homeless as boyfriend was not able to take care of her and she presented to the emergency department with shortness of breath. Renal consultation was requested for need for dialysis. Patient currently being dialyzed twice weekly at the [facility] dialysis unit via right IJ PermCath. Blood pressure 156/75, heart rate 71. WBC 7.9, hemoglobin 10.3, platelets 224. Sodium 143, potassium 4.6, BUN 71, creatinine 3.3, GFR 14. Bicarbonate 16.1. Calcium 6.6, LFTs normal. BNP 783. Urinalysis shows 2+ protein with no bacteria. Urine tox screen negative. Chest x-ray showed fluid overload. C- spine x-ray showed no cervical fracture. Patient admitted to medical floor and renal consultation requested for need for dialysis. Patient currently seen on dialysis. 02/12/2025 cheerful. Denies any nausea, vomiting.Patient currently seen in medical floor. Resting comfortably. No chest pain, shortness of breath. Next dialysis scheduled for Thursday. Patient goes twice weekly. 02/13/2025 patient currently seen in dialysis. Denies any chest pain, shortness of breath. She is scheduled for Thursday, Thursday schedule in the outpatient setting. Next dialysis will be Thursday. 02/14/2025: Patient seen and examined at bedside, resting comfortably. Denies fever, chills, chest pain, shortness of breath, nausea, vomiting. Overall doing well. WBC 6.7, hemoglobin 10.1, sodium 141, potassium 4.7, bicarb 23.5, BUN 54, creatinine 2.9, EGFR 17. 2 L in, 1 L urinary output. 02/15/2025: Patient seen and examined at bedside, resting comfortably. Overall doing very well. No labs drawn, but on exam patient does not appear to be fluid overloaded. Patient pending authorization for SNF placement prior to discharge. Added Nephro-Cora. Plan for next dialysis session on Thursday. Exam Vital Signs Temp Pulse Resp BP Pulse Ox O2 Del Method 97.0 F 71 16 166/87 H 96 Room Air 02/15/25 08:00 02/15/25 08:00 02/15/25 08:00 02/15/25 08:00 02/15/25 08:00 02/15/25 08:00 Narrative Exam GENERAL APPEARANCE: Patient currently seen in medical floor, resting comfortably NECK: Neck supple, no JVD or bruit CARDIOVASCULAR: Heart regular, no murmurs LUNGS/CHEST: Decreased breath sounds bilaterally, no crackles or wheezing ABDOMEN: Soft, nontender, nondistended. No masses. Normal bowel sounds. EXTREMITIES: Trace edema in the lower extremities SKIN: Skin exam normal without any rashes. Right IJ PermCath MUSCULOSKELETAL: in bed, able to move her extremities NEUROLOGICAL : No neurological deficits Objective Labs 02/13/25 05:43 02/13/25 05:43 Labs: Laboratory Results - last 24 hr 02/13/25 05:43 Muna Syed ([facility]) See Sep Rpt Quality Measures Quality Measures VTE prophylaxis Advance care planning discussed with:: patient Assessment & Plan Assessment Current Active Medications: Generic Name Dose Route Start Last Admin Trade Name Freq PRN Reason Stop Dose Admin Acetaminophen 650 mg 02/10/25 17:34 02/13/25 23:58 Acetaminophen 325 Mg Tablet PO 03/12/25 17:33 650 mg Q6H PRN Administration Fever >100.4 or Pain 1-3 Albuterol/Ipratropium 3 ml 02/10/25 17:38 Albuterol/Ipratropium (Duoneb) Rt Dee 3 Ml Nebu INH 03/12/25 18:59 Q4HRRT PRN SHORTNESS OF BREATH Bumetanide 1 mg 02/11/25 09:00 02/14/25 09:05 Bumetanide Inj 0.25 Mg/Ml Vial 4 Ml IVP 03/13/25 08:59 1 mg QDAY KENNEDY Administration Carvedilol 6.25 mg 02/11/25 08:00 02/14/25 17:12 Carvedilol 3.125 Mg Tablet PO 03/13/25 07:59 6.25 mg BIDWM KENNEDY Administration Clonidine 0.1 mg 05/23/25 21:00 02/14/25 20:26 Clonidine Hcl 0.1 Mg Tablet PO 03/12/25 20:59 0.1 mg BID KENNEDY Administration Heparin Sodium (Porcine) 5,000 unit 02/10/25 21:00 02/14/25 20:28 Heparin Sod Inj 5000 Unit/Ml Vial SC 02/24/25 20:59 5,000 unit Q12HR KENNEDY Administration Heparin Sodium (Porcine) 3,800 unit 02/10/25 18:22 02/13/25 18:46 Heparin Sod Inj 1000 Unit/Ml Vial 10 Ml INDWELLCAT 02/24/25 18:21 3,800 unit X1 PRN Administration DIALYSIS Protocol Hydralazine HCl 50 mg 02/12/25 14:00 02/15/25 06:13 Hydralazine Hcl 25 Mg Tablet PO 03/14/25 13:59 50 mg TID KENNEDY Administration Nifedipine 60 mg 02/13/25 09:00 02/14/25 09:06 Nifedipine Xl 30 Mg Tabcr PO 03/15/25 08:59 60 mg QDAY KENNEDY Administration Ondansetron HCl 4 mg 02/10/25 17:34 Ondansetron Inj 2 Mg/Ml Inj 2 Ml IVP 03/12/25 17:33 Q6H PRN NAUSEA OR VOMITING Protocol Sennosides 1 tab 02/10/25 17:45 02/14/25 09:07 Senna Tablet PO 03/12/25 17:44 1 tab QDAY KENNEDY Administration Protocol Valsartan 40 mg 02/13/25 12:00 02/14/25 09:09 Valsartan 40 Mg Tablet PO 03/15/25 11:59 40 mg QDAY KENNEDY Administration Vitamin B Complex/Vit C/Folic Acid 1 tab 02/15/25 09:00 Vit B12/Vit C/Fa (Nephrovite) Tablet PO 03/17/25 08:59 QDAY KENNEDY Plan Johana Freed is a 69-year-old female with PMHx of HFrEF (EF 30 to 35%, 06/2024), CKD stage IV/V, COPD, hypertension, breast cancer status post bilateral mastectomy, and history of methamphetamine use who was admitted for management of decompensated CHF exacerbation and hypertension. Nephrology consulted for need for dialysis. #Acute on chronic kidney injury-- ATN vs cardiorenal syndrome type 2 Patient currently receives scheduled dialysis Thursday and Thursday. Plan of care discussed with the dialysis nurse. Please see dialysis flowsheet for further details. Patient not experiencing significant fluid overload at this time. - Next hemodialysis session Thursday - Avoid nephrotoxins - Renally dose meds - Monitor daily renal function - Nephro-Cora once daily #Hypertension #Compensated heart failure #HFrEF #History of COPD #Cirrhosis #h/o Polysubstance abuse - Continue management per primary team - Patient currently needs SNF placement placement due to dialysis catheter and need for dialysis. Thank you for allowing us to participate in the care of this patient. Plan of care discussed with attending Dr. Pulido. Reji Mac MD PGY?1 Attending Provider Attestation/Addendum Patient seen and examined with resident physician Dr. Burgos. Note reviewed, agree with findings and recommendations. Next dialysis scheduled for Thursday. Pending placement
[2025-02-15] MEDS: HEPARIN SOD INJ 5000 UNIT/ML VIAL SC ×2 (09:59→21:58)
[2025-02-15] MEDS: cloNIDine HCL 0.1 MG TABLET PO ×2 (09:59→21:57)
[2025-02-15] MEDS: BUMETANIDE INJ 0.25 MG/ML VIAL 4 ML 1 MG IVP (09:59)
[2025-02-15] MEDS: NIFEdipine XL 30 MG TABCR 60 MG PO (09:59)
[2025-02-15] MEDS: ACETAMINOPHEN 325 MG TABLET 650 MG PO ×2 (10:00→18:11)
[2025-02-15] MEDS: carVEDILOL 3.125 MG TABLET 6.25 MG PO ×2 (10:00→18:09)
[2025-02-15] MEDS: SENNA TABLET 1 TAB PO (10:00)
[2025-02-15] MEDS: VALSARTAN 40 MG TABLET PO (10:00)
[2025-02-15] MEDS: VIT B12/Vit C/FA (Nephrovite) TABLET 1 TAB PO (10:01)
--- NOTE | 2025-02-15 11:54 | ESPR_ITS ---
<Statement entered by Jimy Gimenez MD - 02/20/25 14:41> I reviewed above note and agree with findings and plans. I have also personally examined the patient with medicine team and went over assessment and plan with medical team including quality internship and resident physician. Documentation for date of: 02/15/25 Subjective Subjective Interval history: Overnight, no acute events reported. Patient seen and examined at bedside. Patient denies any complaints at this time. Patient's serology came back negative for chlamydia PCR, gonorrhea PCR and trichomonas. Patient is pending authorization to ask for nursing facility, however has a Plan B if patient is unable to go to SNF due to denial, patient agreed to return back to [facility] for placement. Patient will continue to follow her hemodialysis schedule Thursday. All questions asked and answered. Patient currently agrees with current course of plan. Exam Vital Signs Temp Pulse Resp BP Pulse Ox O2 Del Method 97.0 F 71 16 166/87 H 96 Room Air 02/15/25 08:00 02/15/25 10:00 02/15/25 08:00 02/15/25 10:00 02/15/25 08:00 02/15/25 08:00 Narrative Exam General Appearance: Pt in NAD laying comfortably in bed. Elderly female. Well- nourished and well-developed. HEENT: NC/AT, no scleral icterus, no conjunctival pallor, MMM Lungs: Decreased crackles appreciated throughout, otherwise equal air entry bilaterally CVS: RRR, S1/S2 heard, no murmurs or rubs appreciated, right IJ cath present ABD: Soft, non-tender, non-distended, BS + in all 4 quadrants EXT: no deformity/edema/lesions/cyanosis/clubbing, radial pulses 2+ BL, DP pulses 2 + BL SKIN: Skin exam normal without any rashes. Neuro: A&O x 3. No gross neurological deficits. Motor and sensory grossly intact in B/L UL and LL. Psych: Appropriate mood and affect Objective Labs 02/13/25 05:43 02/13/25 05:43 Labs: Laboratory Results - last 24 hr 02/13/25 05:43 T.pallidum Ab ([facility]) See Sep Rpt Quality Measures Quality Measures VTE prophylaxis Advance care planning discussed with:: patient Assessment & Plan Assessment Current Active Medications: Generic Name Dose Route Start Last Admin Trade Name David PRN Reason Stop Dose Admin Acetaminophen 650 mg 02/10/25 17:34 02/15/25 10:00 Acetaminophen 325 Mg Tablet PO 03/12/25 17:33 650 mg Q6H PRN Administration Fever >100.4 or Pain 1-3 Albuterol/Ipratropium 3 ml 02/10/25 17:38 Albuterol/Ipratropium (Duoneb) Rt Dee 3 Ml Nebu INH 03/12/25 18:59 Q4HRRT PRN SHORTNESS OF BREATH Bumetanide 1 mg 02/11/25 09:00 02/15/25 09:59 Bumetanide Inj 0.25 Mg/Ml Vial 4 Ml IVP 03/13/25 08:59 1 mg QDAY KENNEDY Administration Carvedilol 6.25 mg 02/11/25 08:00 02/15/25 10:00 Carvedilol 3.125 Mg Tablet PO 03/13/25 07:59 6.25 mg BIDWM KENNEDY Administration Clonidine 0.1 mg 02/10/25 21:00 02/15/25 09:59 Clonidine Hcl 0.1 Mg Tablet PO 03/12/25 20:59 0.1 mg BID KENNEDY Administration Heparin Sodium (Porcine) 5,000 unit 02/10/25 21:00 02/15/25 09:59 Heparin Sod Inj 5000 Unit/Ml Vial SC 02/24/25 20:59 5,000 unit Q12HR KENNEDY Administration Heparin Sodium (Porcine) 3,800 unit 02/10/25 18:22 02/13/25 18:46 Heparin Sod Inj 1000 Unit/Ml Vial 10 Ml INDWELLCAT 02/24/25 18:21 3,800 unit X1 PRN Administration DIALYSIS Protocol Hydralazine HCl 50 mg 02/12/25 14:00 02/15/25 06:13 Hydralazine Hcl 25 Mg Tablet PO 03/14/25 13:59 50 mg TID KENNEDY Administration Nifedipine 60 mg 02/13/25 09:00 02/15/25 09:59 Nifedipine Xl 30 Mg Tabcr PO 03/15/25 08:59 60 mg QDAY KENNEDY Administration Ondansetron HCl 4 mg 02/10/25 17:34 Ondansetron Inj 2 Mg/Ml Inj 2 Ml IVP 03/12/25 17:33 Q6H PRN NAUSEA OR VOMITING Protocol Sennosides 1 tab 02/10/25 17:45 02/15/25 10:00 Senna Tablet PO 03/12/25 17:44 1 tab QDAY KENNEDY Administration Protocol Valsartan 40 mg 02/13/25 12:00 02/15/25 10:00 Valsartan 40 Mg Tablet PO 03/15/25 11:59 40 mg QDAY KENNEDY Administration Vitamin B Complex/Vit C/Folic Acid 1 tab 02/15/25 09:00 02/15/25 10:01 Vit B12/Vit C/Fa (Nephrovite) Tablet PO 03/17/25 08:59 1 tab QDAY KENNEDY Administration Plan 69-year-old female with past medical history of resistant hypertension, ESRD, breast cancer s/p resection and breast implant of right breast, COPD on home O2, and 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 #Syphilis Patient had requested to have an STD panel done and syphilis came back positive. 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 Echo on 10/2024 that showed an EF of 45 to 50% Patient does not have any lower extremity edema Plan: Will continue with Bumex 1 mg IV daily Will continue with Coreg 6.25 mg twice daily with meals, clonidine 0.1 mg twice daily, continue hydralazine to mg 3 times daily, nifedipine to 60 mg daily and e valsartan 40mg qday Will continue monitoring #Hx of COPD Patient uses home O2 mostly at night Patient saturating well today on room air Plan: DuoNebs ordered O2 as needed #Electrolyte imbalance #Hypomagnesemia, resolved Disposition: Pending SNF auth/placement Diet: Renal GI prophylaxis: not indicated DVT prophylaxis: heparin sub cu Code: Full Patient's plan and care discussed with my attending, Dr. Ammy Asif MD PGY-2
--- NOTE | 2025-02-15 15:34 | PC.PT ---
Patient will be D/C from PT due to patient is able to ambulate 330ft with a FWW and only supervision assist. PT spoke with SW and patient will be receiving a rollator walker prior to returning home as well.
[2025-02-15 16:35] LABS: Chlamydia trachomatis PCR Negative (Not Detect); Neisseria Gonorrhoeae DNA PCR Negative (Not Detect); Trichomonas Negative (Negative)
[2025-02-16] VITALS (8 sets, daily range): BP systolic 151–176; BP diastolic 78–89; PULSE 72–77; RESP 18–20; TEMP 36.4–37.6; O2SAT 94–96
[2025-02-16] MEDS: hydrALAZINE HCL 25 MG TABLET 50 MG PO (05:26)
[2025-02-16] MEDS: carVEDILOL 3.125 MG TABLET 6.25 MG PO (08:28)
[2025-02-16] MEDS: VALSARTAN 40 MG TABLET PO (08:28)
[2025-02-16] MEDS: cloNIDine HCL 0.1 MG TABLET PO (08:28)
[2025-02-16] MEDS: SENNA TABLET 1 TAB PO (08:28)
[2025-02-16] MEDS: BUMETANIDE INJ 0.25 MG/ML VIAL 4 ML 1 MG IVP (08:29)
[2025-02-16] MEDS: NIFEdipine XL 30 MG TABCR 60 MG PO (08:29)
[2025-02-16] MEDS: HEPARIN SOD INJ 5000 UNIT/ML VIAL SC (08:29)
[2025-02-16] MEDS: VIT B12/Vit C/FA (Nephrovite) TABLET 1 TAB PO (08:30)
[2025-02-16] MEDS: ACETAMINOPHEN 325 MG TABLET 650 MG PO (08:30)
--- NOTE | 2025-02-16 08:32 | PC.SS ---
Addendum entered by BRENNEN Herrera 02/16/25 14:36: UBER transport was arranged for the patient to d/c to [facility]. Addendum entered by BRENNEN Herrera 02/16/25 12:43: SS update: was informed that patient was visited earlier today by [facility] social security assessor-Nereyda. BI[employer] MACHINE OPERATOR HELPER contacted the worker to discuss the nature of the visit. Per Nereyda, she came to speak with the patient to discuss a report that was received and also provide patient with resources. Per Nereyda, the patient was informed that [facility] has a funding program called '[employer]', where they can assist their clients with payment for first month/deposit for placement/housing. Nereyda explained that the client would have to be complaint with services and the funding for the program would take some time to be obtained if approved. Nereyda informed that once patient finds housing/placement they could assist if approved and patient welcomed to reach out to them. BIAS MACHINE OPERATOR HELPER observed the resources provided to the patient and contact information of the [employer] social security assessor in patient's room. Patient is aware of the resources provided to her and is aware of the funding program. Additionally, Nereyda was made aware of patient's discharge plan for today. Addendum entered by BRENNEN Herrera 02/16/25 11:01: SS follow up: met with patient at bed side to update on insurance denial for SNF placement. Patient verbalized understanding. Patient informs she would like to discharge to [facility] to get connected with them for an intake. Patient informs she will need transportation arranged there at time of discharge. Patient denied needing clothing/shoes at this time, informs she some already in her bag. Patient was provided with community resources handout with contact information with address to [facility] as well. Additionally, [facility] staff Ashley was contacted to confirm they can meet with the patient today to complete intake and go over requirements with the patient. Patient was observed to ambulate to the restroom, additionally PT informs patient was able to ambulate well. Patient does confirm she receive SSI income and has been able to get to her dialysis appointments via Uber and local bus transportation. Per bedside RN-Jessie the patient is scheduled to get dialysis today, unknown what time. Notified RN of the discharge plan and informs she will update on dialysis time as patient will need transportation arranged at time of discharge. Addendum entered by BRENNEN Herrera 02/16/25 10:21: SS update: received a call from [facility], staff Leigh , who informed that the patient was denied by Dr. Rhett Contreras for need for SNF placement. Leigh provided Dr. Rhett Contreras's contact number to be should the attending request a peer to peer discussion or have any further questions. Updated Jessie at [facility] to make aware that patient was denied for need for SNF placement by insurance. Addendum entered by BRENNEN Herrera 02/16/25 08:59: SS follow up: per Jessie at [facility], she has also attempted to get ahold of patient's insurance this morning and unable to reach them with voicemail provided to them. Original Note: SS follow up: attempted contact with patient's insurance carrier with Lesa at to get an update, no answer and voicemail was provided with call back number.
--- NOTE | 2025-02-16 09:10 | ESPR_ITS ---
Documentation for date of: 02/16/25 Subjective Subjective Interval history: Ms. Freed is a 69-year-old female with a past medical history of end-stage renal disease on hemodialysis Thursday and , hypertension, CHF, history of breast cancer s/p resection, COPD, methamphetamine abuse disorder was recently admitted to [facility] with congestive cardiac failure and COPD exacerbation and ended up on dialysis for cardiorenal syndrome. She was discharged to her boyfriend's home. However patient became homeless as boyfriend was not able to take care of her and she presented to the emergency department with shortness of breath. Renal consultation was requested for need for dialysis. Patient currently being dialyzed twice weekly at the [facility] dialysis unit via right IJ PermCath. Blood pressure 156/75, heart rate 71. WBC 7.9, hemoglobin 10.3, platelets 224. Sodium 143, potassium 4.6, BUN 71, creatinine 3.3, GFR 14. Bicarbonate 16.1. Calcium 6.6, LFTs normal. BNP 783. Urinalysis shows 2+ protein with no bacteria. Urine tox screen negative. Chest x-ray showed fluid overload. C- spine x-ray showed no cervical fracture. Patient admitted to medical floor and renal consultation requested for need for dialysis. Patient currently seen on dialysis. 02/12/2025 cheerful. Denies any nausea, vomiting.Patient currently seen in medical floor. Resting comfortably. No chest pain, shortness of breath. Next dialysis scheduled for Thursday. Patient goes twice weekly. 02/13/2025 patient currently seen in dialysis. Denies any chest pain, shortness of breath. She is scheduled for Thursday, Thursday schedule in the outpatient setting. Next dialysis will be Thursday. 02/14/2025: Patient seen and examined at bedside, resting comfortably. Denies fever, chills, chest pain, shortness of breath, nausea, vomiting. Overall doing well. WBC 6.7, hemoglobin 10.1, sodium 141, potassium 4.7, bicarb 23.5, BUN 54, creatinine 2.9, EGFR 17. 2 L in, 1 L urinary output. 02/15/2025: Patient seen and examined at bedside, resting comfortably. Overall doing very well. No labs drawn, but on exam patient does not appear to be fluid overloaded. Patient pending authorization for SNF placement prior to discharge. Added Nephro-Cora. Plan for next dialysis session on Thursday. 02/16/2025: Patient seen examined at bedside, resting comfortably. Patient denies fevers, chills, chest pain, shortness of breath, nausea, vomiting. BUN 54, creatinine 2.9, EGFR 17. If patient remains here tomorrow will receive hemodialysis as per usual schedule. Exam Vital Signs Temp Pulse Resp BP Pulse Ox O2 Del Method 98.3 F 72 18 154/83 H 96 Room Air 02/16/25 08:00 02/16/25 08:29 02/16/25 08:00 02/16/25 08:29 02/16/25 08:00 02/16/25 08:00 Narrative Exam GENERAL APPEARANCE: Patient currently seen in medical floor, resting comfortably NECK: Neck supple, no JVD or bruit CARDIOVASCULAR: Heart regular, no murmurs LUNGS/CHEST: Decreased breath sounds bilaterally, no crackles or wheezing ABDOMEN: Soft, nontender, nondistended. No masses. Normal bowel sounds. EXTREMITIES: Trace edema in the lower extremities SKIN: Skin exam normal without any rashes. Right IJ PermCath MUSCULOSKELETAL: in bed, able to move her extremities NEUROLOGICAL : No neurological deficits Objective Labs 02/13/25 05:43 02/13/25 05:43 Labs: Laboratory Results - last 24 hr 02/15/25 10:00 Chlam trachomat DNA PCR Negative N.gonorrhoeae DNA (PCR) Negative Trichomonas DNA Probe Negative Quality Measures Quality Measures VTE prophylaxis Advance care planning discussed with:: patient Assessment & Plan Assessment Current Active Medications: Generic Name Dose Route Start Last Admin Trade Name Freq PRN Reason Stop Dose Admin Acetaminophen 650 mg 02/10/25 17:34 02/16/25 08:30 Acetaminophen 325 Mg Tablet PO 03/12/25 17:33 650 mg Q6H PRN Administration Fever >100.4 or Pain 1-3 Albuterol/Ipratropium 3 ml 02/10/25 17:38 Albuterol/Ipratropium (Duoneb) Rt Dee 3 Ml Nebu INH 03/12/25 18:59 Q4HRRT PRN SHORTNESS OF BREATH Bumetanide 1 mg 02/11/25 09:00 02/16/25 08:29 Bumetanide Inj 0.25 Mg/Ml Vial 4 Ml IVP 03/13/25 08:59 1 mg QDAY KENNEDY Administration Carvedilol 6.25 mg 02/11/25 08:00 02/16/25 08:28 Carvedilol 3.125 Mg Tablet PO 03/13/25 07:59 6.25 mg BIDWM KENNEDY Administration Clonidine 0.1 mg 02/10/25 21:00 02/16/25 08:28 Clonidine Hcl 0.1 Mg Tablet PO 03/12/25 20:59 0.1 mg BID KENNEDY Administration Heparin Sodium (Porcine) 5,000 unit 02/10/25 21:00 02/16/25 08:29 Heparin Sod Inj 5000 Unit/Ml Vial SC 02/24/25 20:59 5,000 unit Q12HR KENNEDY Administration Heparin Sodium (Porcine) 3,800 unit 02/10/25 18:22 02/13/25 18:46 Heparin Sod Inj 1000 Unit/Ml Vial 10 Ml INDWELLCAT 02/24/25 18:21 3,800 unit X1 PRN Administration DIALYSIS Protocol Hydralazine HCl 50 mg 02/12/25 14:00 02/16/25 05:26 Hydralazine Hcl 25 Mg Tablet PO 03/14/25 13:59 50 mg TID KENNEDY Administration Nifedipine 60 mg 02/13/25 09:00 02/16/25 08:29 Nifedipine Xl 30 Mg Tabcr PO 03/15/25 08:59 60 mg QDAY KENNEDY Administration Ondansetron HCl 4 mg 02/10/25 17:34 Ondansetron Inj 2 Mg/Ml Inj 2 Ml IVP 03/12/25 17:33 Q6H PRN NAUSEA OR VOMITING Protocol Sennosides 1 tab 02/10/25 17:45 02/16/25 08:28 Senna Tablet PO 03/12/25 17:44 1 tab QDAY KENNEDY Administration Protocol Valsartan 40 mg 02/13/25 12:00 02/16/25 08:28 Valsartan 40 Mg Tablet PO 03/15/25 11:59 40 mg QDAY KENNEDY Administration Vitamin B Complex/Vit C/Folic Acid 1 tab 02/15/25 09:00 02/16/25 08:30 Vit B12/Vit C/Fa (Nephrovite) Tablet PO 03/17/25 08:59 1 tab QDAY KENNEDY Administration Plan Johana Freed is a 69-year-old female with PMHx of HFrEF (EF 30 to 35%, 06/2024), CKD stage IV/V, COPD, hypertension, breast cancer status post bilateral mastectomy, and history of methamphetamine use who was admitted for management of decompensated CHF exacerbation and hypertension. Nephrology consulted for need for dialysis. #Acute on chronic kidney injury-- ATN vs cardiorenal syndrome type 2 Patient currently receives scheduled dialysis Thursday and Thursday. Plan of care discussed with the dialysis nurse. Please see dialysis flowsheet for further details. Patient not experiencing significant fluid overload at this time. - Next hemodialysis session Thursday - Avoid nephrotoxins - Renally dose meds - Monitor daily renal function - Nephro-Cora once daily #Hypertension #Compensated heart failure #HFrEF #History of COPD #Cirrhosis #h/o Polysubstance abuse - Continue management per primary team - Patient currently needs SNF placement placement due to dialysis catheter and need for dialysis. Thank you for allowing us to participate in the care of this patient. Plan of care discussed with attending Dr. Pulido. Reji Mac MD PGY?1 Attending Provider Attestation/Addendum Patient seen and examined with resident physician Dr. Burgos. Note reviewed, agree with findings and recommendations. Pending placement. Next dialysis Thursday.
--- NOTE | 2025-02-16 12:51 | PC.LAC ---
called Dr. Pulido and left vm to call back for pt dialysis today.
--- NOTE | 2025-02-16 13:59 | PC.NURSE ---
Spoke to kadi Payne she will call Cesar to pick pt up at 1430 to take to [facility].
--- NOTE | 2025-02-16 14:17 | ESDS_ITS ---
<Statement entered by Jimy Gimenez MD - 02/22/25 15:43> I reviewed above note and agree with findings and plans. I have also personally examined the patient with medicine team and went over assessment and plan with medical team including transportation logistics internship and resident physician. Planned Discharge Date 02/16/25 DS: Providers Provider Date of admission: 02/10/25 17:34 Primary care physician: Physician No Primary/Family Admitting Provider: Devin Grimaldo MD Attending Provider on Admission: Jimy Gimenez MD Consults: 02/10/25 15:49 Consult to Nephrology Stat Comment: ESRD Consulting Provider: Victoria Pulido 02/10/25 18:08 Referral Physical Therapy Routine Comment: Physician Instructions: Attending Provider on DC: Kaila Asif MD Discharging Provider: Kaila Asif MD DS: Diagnosis Problem List Completed Was Problem List Reviewed/Reconciled?: Yes Hospital Course Hospital Course Hospital course: Patient is a 69-year-old female with past medical history significant for resistant hypertension, ESRD, breast cancer s/p resection and breast implant of right breast, COPD on home O2, and 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 Throughout hospital stay, patient's SOB and edema improved with her HD sessions. Nephrology was consulted and emphasized importance of HD compliance after discharge. Patient's stay also complicated by positive syphilis level, upon patient's request to get at an STD panel. Patient was encouraged to tell her partner and was given 1 IM injection of Pencillin G 2.4 million units. Patient also was concerned with housing safety as patient doesn't have a stable place to reside. However, SNF at this time declined, and patient agreed to go to [facility], an assisted living center. Patient also placed on her home CHF medications, and decreased her Carvedilol dosage d/t her soft HR. Pt seen and examined at bedside. Pt denies any complaints. Pt is medically cleared to be discharged today with the following instructions: Please follow-up with primary care physician within 1 week upon discharge Please follow-up with your dispensary clerk which was admitted in 1 to 2 weeks upon discharge It is of vital importance that you do not miss any further hemodialysis session to avoid shortness of breath and fluid overload status. Given that your heart rate has been in the 60s we have decreased your carvedilol from 25 mg twice daily to 6.25 mg twice daily. 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 Ammy Asif MD PGY-2 Status at Discharge Cognitive/behavioral status at discharge: stable Time Spent with Patient Time attestation: Total time spent providing and/or coordinating discharge services: 35 Time spent: Greater than 30 minutes Exam Vital Signs Temp Pulse Resp BP Pulse Ox O2 Del Method 98.3 F 74 18 176/87 H 96 Room Air 02/16/25 11:40 02/16/25 12:00 02/16/25 11:40 02/16/25 11:40 02/16/25 11:40 02/16/25 11:40 Narrative Exam General Appearance: Pt in NAD laying comfortably in bed. Elderly female. Well- nourished and well-developed. HEENT: NC/AT, no scleral icterus, no conjunctival pallor, MMM Lungs: Decreased crackles appreciated throughout, otherwise equal air entry bilaterally CVS: RRR, S1/S2 heard, no murmurs or rubs appreciated, right IJ cath present ABD: Soft, non-tender, non-distended, BS + in all 4 quadrants EXT: no deformity/edema/lesions/cyanosis/clubbing, radial pulses 2+ BL, DP pulses 2 + BL SKIN: Skin exam normal without any rashes. Neuro: A&O x 3. No gross neurological deficits. Motor and sensory grossly intact in B/L UL and LL. Psych: Appropriate mood and affect Discharge Plan Plan Patient Disposition: HOME (Self Care) Care Plan Goals: Please follow-up with primary care physician within 1 week upon discharge Please follow-up with your dispensary clerk which was admitted in 1 to 2 weeks upon discharge It is of vital importance that you do not miss any further hemodialysis session to avoid shortness of breath and fluid overload status. Given that your heart rate has been in the 60s we have decreased your carvedilol from 25 mg twice daily to 6.25 mg twice daily. Please continue taking all home medications as prescribed Please come back to the ED if symptoms persist or worsen Prescriptions/Referrals Prescriptions/Med Rec: New Nephro-Cora 0.8 mg Tablet 1 tab PO QDAY 30 Days Qty: 30 0RF carvedilol 6.25 mg tablet 6.25 mg PO BIDWM 30 Days Qty: 60 0RF Continued clonidine HCl 0.1 mg tablet 0.1 mg PO BID 30 Days Qty: 60 0RF bumetanide 1 mg tablet 1 mg PO DAILY 30 Days Qty: 30 0RF valsartan 40 mg tablet 40 mg PO QDAY 30 Days Qty: 30 0RF hydralazine 100 mg tablet 100 mg PO TID 30 Days Qty: 90 0RF nifedipine 90 mg tablet extended release 90 mg PO QDAY 30 Days Qty: 30 0RF furosemide 20 mg tablet 20 mg PO .qod Trelegy Ellipta 100-62.5-25 mcg blister with device 1 inh inhalation QDAY 30 Days Qty: 28 0RF albuterol sulfate 90 mcg/actuation HFA aerosol inhaler 2 puff inhalation Q6H PRN (Reason: shortness of breath or wheezing) 30 Days Qty: 6.7 0RF Held carvedilol 25 mg tablet 25 mg PO BID 30 Days Qty: 60 0RF Hold Instructions: Resume on 02/23/25. Can uptirate depending on your HR, please see your PCP regarding when to increase your Coreg dose from 6.25 twice daily Rx Instructions: must administer with a meal/food Discontinued methylprednisolone [Medrol (Mehdi)] 4 mg tablets,dose pack 4 mg PO QAM Qty: 21 0RF Referrals: No Primary/Family,Physician [Primary Care Provider] - Victoria Pulido MD [Physician] - Patient/Caregiver Discharge Instructions Other Discharge Activity Instructions:: Please follow-up with primary care physician within 1 week upon discharge Please follow-up with your dispensary clerk which was admitted in 1 to 2 weeks upon discharge It is of vital importance that you do not miss any further hemodialysis session to avoid shortness of breath and fluid overload status. Given that your heart rate has been in the 60s we have decreased your carvedilol from 25 mg twice daily to 6.25 mg twice daily. Please continue taking all home medications as prescribed Please come back to the ED if symptoms persist or worsen Education Materials: Hemodialysis Print Language: [place] Islander Stand Alone Forms: Fern Award Info., Patient Portal Info Letter Discharge Order Discharge Orders: Discharge (Routine); Ordered 02/14/25 Ordered By: Iain Sanchez Quality Discharge Quality Measures VTE prophylaxis
== END 2025-02-16 14:36 | disposition home or self-care (01) | DRG 291 ==
LOC: SERX 17:22 → S3SX 02-13 08:18 → SERHOLD 02-15 05:57 → S3SX 02-15 05:57
PROVIDERS: Nurse Practitioner Family; Student in an Organized Health Care Education/Training Program; Admitting Provider Student in an Organized Health Care Education/Training Program; Emergency Provider Family Medicine; Visit Provider Internal Medicine
DX: I13.2 Hypertensive heart and chronic kidney disease with heart failure and with stage 5 chronic kidney disease, or end stage renal disease (principal); N18.6 End stage renal disease; Z59.00 Homelessness unspecified; N17.9 Acute kidney failure, unspecified; I50.22 Chronic systolic (congestive) heart failure; J44.9 Chronic obstructive pulmonary disease, unspecified; D63.1 Anemia in chronic kidney disease; E83.51 Hypocalcemia; F17.210 Nicotine dependence, cigarettes, uncomplicated; I1A.0 Resistant hypertension; Z98.82 Breast implant status; Z99.81 Dependence on supplemental oxygen; E83.42 Hypomagnesemia; Z99.2 Dependence on renal dialysis; Z85.3 Personal history of malignant neoplasm of breast; Z90.13 Acquired absence of bilateral breasts and nipples; Z79.899 Other long term (current) drug therapy; Z90.710 Acquired absence of both cervix and uterus; K74.60 Unspecified cirrhosis of liver; A53.9 Syphilis, unspecified
CPT/HCPCS: 36415; 71045; 72040; 80053; 80307; 81001; 83735; 84100; 85025; 86703; 86780; 87081; 87491; 87591; 87661; 87811; 93005; 96365; 96372; 97161; 97162; 99285; J0360; J0561; J0613; J1643; J1644; J3475; J3490; Q4081; A9270

== ENCOUNTER 2025-03-22 07:41 | Emergency (ER) | payer MEDICARE, MEDICAID, SELFPAY ==
[2025-03-22] VITALS (7 sets, daily range): BP systolic 185–232; BP diastolic 107–158; PULSE 75–96; RESP 18–28; TEMP 36.2–36.8; O2SAT 95–96; BMI 22.4
--- NOTE | 2025-03-22 08:08 | EKG_ITS ---
[facility] Test Date: 2025-03-22 Pat Name: CHEMA DIAZ Department: Room: - Gender: Female Scullion Chief: : 1955 Requested By: Debi Castro Order Number: [id number] Reading MD: Debi Castro Measurements Intervals Edmond Rate: 99 P: -2 WI: 171 QRS: 78 QRSD: 95 T: -62 QT: 374 QTc: 481 Interpretive Statements SINUS RHYTHM LEFT VENTRICULAR HYPERTROPHY AND ST-T CHANGE [VOLTAGE CRITERIA PLUS ST/T ABNORMALITY] Compared to ECG 02/10/2025 13:16:54 No significant changes /store/S0/[id number]/ecg/[id number].pdf
--- NOTE | 2025-03-22 08:08 | XR_ITS ---
Examination: AP chest single view Technique one AP portable semiupright chest single view Date and time: March 22, 2025 0819 hours Comparison February 10, 2025 INDICATIONS: Chest pain shortness of breath today. FINDINGS: Mild heart failure. Moderate enlargement left ventricle. Prominent vascular congestion with early perihilar edema. Right axillary surgical clips. Prominent osteopenia. Right internal jugular dialysis catheter tips right atrium IMPRESSION: Mild CHF
--- NOTE | 2025-03-22 08:11 | PC.NURSE ---
BIBA FROM HOME FOR SOB X LAST NIGHT AND MISSED DIALYSIS YESTERDAY. HX OF COPD, CHF, HTN, AND KIDNEY FAILURE W/DIALYSIS TU/THU. PATIENT STATES SHE STILL SMOKES UP TO FOUR CIGARETTES A DAY WELL 1 MARIJUANA JOINT A DAY. PATIENT IS CURRENTLY HYPERTENSIVE AND STATES SHE HAS NOT TAKEN BLOOD PRESSURE MEDICATION IN SEVERAL WEEKS.
--- NOTE | 2025-03-22 08:58 | EDNOTE_ITS ---
<Statement entered by Debi Broussard MD - 03/31/25 19:28> As co-signing physician, I was present and available for consult prn. I concur with the plan and care as documented by the midlevel provider. ED SOB =RME/HPI General Chief Complaint: Shortness of Breath/Dyspnea Stated Complaint: SOB Time Seen by Provider: 03/22/25 07:47 Arrival date/time: 03/22/25 07:41 RME / HPI RME / HPI Narrative: 69 year old female with history of CHF (EF 45-50% 10/2024), hypertension, ESRD on HD /, COPD, breast cancer s/p resection presents to the ED BIBA from home for evaluation of shortness of breath today. Described feeling I wasn't sudheer to get a deep breath in . Additionally reports she missed her dialysis treatment yesterday due to feeling weak and has not had her hypertensive medications x 5 days. Denies fever, chills, sweating. Denies chest pain. Denies nausea, vomiting, diarrhea, constipation. Related Data Home Medications ?Medication ?Instructions ?Recorded ?Confirmed furosemide 20 mg tablet 20 mg PO .qod 02/01/2502/10 Allergies Allergy/AdvReac Type Severity Reaction Status Date / Time iodine Allergy Severe Rash Verified 02/10/25 11:17 Review of Systems Review of Systems Systems Reviewed: All systems reviewed, normal except as documented Past Medical History Past Medical History CARDIAC: Positive Cardiac Disorders, Hypercholesterolemia, Congestive Heart Fail ure, Edema and Hypertension RESPIRATORY: Positive Chronic Obstructive Pulmonary Disease (COPD), Bronchitis and Pneumonia GASTROINTESTINAL: Positive Gastrointestinal Disorders, Gastrointestinal Bleed a nd Ulcer GENITOURINARY: Positive Genitourinary Disorders, Renal Disease and Dialysis REPRODUCTIVE: Positive Breast Cancer and Previous Pregnancies MUSCULOSKELETAL: Positive Musculoskeletal Disorders and Arthritis HEMATOLOGIC: Positive Blood Disorders and Anemia PSYCHO/SOCIAL: Positive Recreational Drug Use, Depression, Anxiety and Post Traumatic Stress Disorder OTHER HISTORY: Positive Cosmetic Surgery (breast cancer surgery cosmetic. ), Falls, Blood Transfusions, Chicken Pox, Cancer and Breast Cancer Family History FAMILY HISTORY: Positive Family Gastrointestinal Problems and Family Cancer Surgical History SURGICAL: Positive Mastectomy, Lumpectomy and Section Social History SMOKING STATUS: Light (< 1 pack/day) SECOND HAND EXPOSURE: No ED Exam Narrative Physical exam: GENERAL APPEARANCE: alert and oriented x 4, well-developed, well-nourished, no acute distress HEENT: Normocephalic, atraumatic; pupils equal, round, reactive to light; EOMI; mucous membranes pink, moist; oropharynx clear NECK: Supple LUNGS: CTABL; no wheezes, no rales, no rhonchi HEART: Regular rate, regular rhythm; normal S1, S2; no murmurs ABDOMEN: non distended; normal BS; soft, no tenderness, no guarding, no rebound; no masses, no organomegaly, no hernia BACK: no CVA tenderness EXTREMITIES: atraumatic; no edema NEUROLOGIC: awake; alert and oriented x4; cranial nerves II-XII grossly intact; no focal sensory or motor deficits PSYCHIATRIC: appropriate mood and affect SKIN: warm, dry, normal color; no rashes Course Quality Measures none Orders Category Date Time Status [employer]ment NOW Care 03/22/25 08:08 Active EKG (ED ONLY) *Do not use* NOW Care 03/22/25 08:08 Completed EKG (ED Only) Stat Exams 03/22/25 08:08 Draft XR chest 1V portable Stat Exams 03/22/25 08:08 Completed B-Type Natriuretic Peptide Stat Lab 03/22/25 09:10 Completed CBC Stat Lab 03/22/25 09:10 Completed Comprehensive Metabolic Panel Stat Lab 03/22/25 09:10 Completed Lipase Stat Lab 03/22/25 09:10 Completed Magnesium Stat Lab 03/22/25 09:10 Completed Partial Thromboplastin Time Stat Lab 03/22/25 09:10 Completed Prothrombin Time with INR Stat Lab 03/22/25 09:10 Completed Troponin I Stat Lab 03/22/25 09:10 Completed Labetalol IV [Trandate IV] Med 03/22/25 08:08 Discontinued 10 mg IVP X1 ONE hydrALAZINE INJ [Apresoline Inj] Med 03/22/25 11:30 Discontinued 10 mg IVP X1 ONE Reevaluation(s) Reevaluation #1: Patient stood up and walked to the restroom, not in any acute distress. Patients blood pressure is 185/107. Ordered dose of Hydralazine. Patient reports hypertensive medications she has not taken include: Carvedilol 25mg BID, Clonidine HCL 0.1mg BID, Hydralazine 100mg TID, and Lisinopril 5mg QDAY. Time: 11:28 Vital Signs Vital signs: Vital Signs Temperature 97.7 F 03/22/25 07:56 Pulse Rate 96 03/22/25 07:56 Respiratory Rate 22 H 03/22/25 07:56 Blood Pressure 232/158 H 03/22/25 07:56 Pulse Oximetry (%) 95 03/22/25 07:56 Oxygen Delivery Method Room Air 03/22/25 07:56 Pulse ox is 95% on room air which is adequate. Shortness of Breath / Dyspnea MDM Narrative MDM Narrative:: Shira Wylie am scribing for and in the presence of Dr. Broussard. Patient data External records reviewed:: [facility] previous records (I reviewed admission from 02/10/2025 through 02/16/2025 ) and EMS form Clinical information provided by:: patient and EMS Social determinants that could affect healthcare access:: substance use (hx of m ethamphetamine use ) Patient has the following chronic illnesses:: CHF (EF 45-50% 10/2024), hypertension, ESRD on HD T/, COPD, breast cancer s/p resection How is presenting disease/condition affected by chronic disease/condition?: exacerbated by Evaluation data The following diagnostics were reviewed and interpreted by me:: lab results, radiology exam(s) and EKG tracing(s) (03/22/2025 @ 08:31 AM. Sinus rhythm, rate 99, left ventricular hypertrophy, no STEMI. ) Lab and/or radiology exams considered but not ordered:: None Interpretation Summary: Ordering Physician: Debi Broussard MD Date of Service: 03/22/25 Procedure(s): XR chest 1V portable Accession Number(s): [id number] cc: Panfilo Vasquez MD; Debi Broussard MD; Victoria Pulido MD~ Examination: AP chest single view Technique one AP portable semiupright chest single view Date and time: March 22, 2025 0819 hours Comparison February 10, 2025 INDICATIONS: Chest pain shortness of breath today. FINDINGS: Mild heart failure. Moderate enlargement left ventricle. Prominent vascular congestion with early perihilar edema. Right axillary surgical clips. Prominent osteopenia. Right internal jugular dialysis catheter tips right atrium IMPRESSION: Mild CHF Dictated By: Panfilo Vasquez MD Signed By: <Electronically signed by Panfilo Vaqsuez MD in OV> 03/22/25 0929 Medications / Prescriptions Medications or Prescriptions considered but not ordered:: None Medication administrations:: Medication Administration History Discontinued Medications Hydralazine HCl (Hydralazine Inj 20 Mg/Ml Vial) 10 mg IVP X1 ONE Stop: 03/22/25 11:31 Labetalol HCl (Labetalol Inj 5 Mg/Ml Vial 20 Ml) 10 mg IVP X1 ONE Stop: 03/22/25 08:09 Last Admin: 03/22/25 09:16 Dose: 10 mg Documented By: ASIM See above Consultations Consultation(s) initiated? (list below): No Diagnosis Shortness of Breath Differential Diagnosis: acute exacerbation of chronic obstructive airways disease, congestive heart failure, community acquired pneumonia and asthma with exacerbation Most likely diagnosis given after review of the tests above:: Missed dialysis Hypertensive urgency Admission Indicated Admission indicated?: not indicated Admission Request Was there a request for admission?: No Disposition Plan Disposition Plan: Discharge Discharge Attestation Discharge Attestation: The patient and all family members were given an opportunity to ask questions and understood the discharge instructions. Discharge instructions specifically effects, indications for sooner follow up or return to the emergency department, and the expected course of current diagnosis. Patient condition: Stable Discharge Plan Plan Patient Disposition: HOME (Self Care) Prescriptions/Referrals Prescriptions/Med Rec: No Action furosemide 20 mg tablet 20 mg PO .qod Referrals: Victoria Pulido MD [Primary Care Provider] - In 1 week Problem List Clinical Impression: Missed dialysis, Hypertensive urgency Patient/Caregiver Discharge Instructions Education Materials: ED Hemodialysis, ED High Blood Pressure ... Print Language: Filipino Stand Alone Forms: Fern Award Info., Patient Portal Info Letter
[2025-03-22] MEDS: LABETALOL INJ 5 MG/ML VIAL 20 ML 10 MG IVP (09:16)
[2025-03-22 09:41] LABS: Basophils # (Auto) 0.1 Thou/mm3 (0.0-0.2); Basophils % (Auto) 1 % (0-2.5); Eosinophils # (Auto) 0.2 Thou/mm3 (0.0-0.5); Eosinophils % (Auto) 2 % (0-10); Hematocrit 37.4 % (36.0-46.0); Hemoglobin 12.7 g/dL (12.0-16.0); Immature Granulocytes Auto 0.05 Thou/mm3 (0.00-0.00); Lymphocytes # (Auto) 1.2 Thou/mm3 (1.0-4.8); Lymphocytes % (Auto) 10 % (10-50); Mean Corpuscular HGB Conc 34.0 g/dl (31.0-37.0); Mean Corpuscular Hemoglobin 31.9 pg (25.0-35.0); Mean Corpuscular Volume 94 fL (80-100); Monocytes # (Auto) 0.6 Thou/mm3 (0.0-0.8); Monocytes % (Auto) 5 % (0-12); Neutrophils # (Auto) 9.7 Thou/mm3 (1.8-7.7); Neutrophils % (Auto) 82 % (37-80); Nucleated Red Blood Cell # 0.00 Thou/mm3 (0.00-0.00); Nucleated Red Blood Cell % 0 /100 WBC (0); Platelet Count 294 Thou/mm3 (140-440); RDW Standard Deviation 46.7 fL (36.4-46.3); Red Blood Count 3.98 Miln/mm3 (4.00-5.20); White Blood Count 11.9 Thou/mm3 (3.6-11.0)
[2025-03-22 10:05] LABS: INR 1.1 (0.9-1.3); Partial Thromboplastin Time 28.1 Seconds (22.0-36.0); Prothrombin Time 12.4 Seconds (9.0-12.2)
[2025-03-22 10:11] LABS: Alanine Aminotransferase 41 U/L (10-49); Albumin, Serum 4.2 gm/dL (3.4-4.8); Albumin/Globulin Ratio 1.4 (1.2-2.2); Alkaline Phosphatase 153 U/L (46-116); Anion Gap 11 (7-16); Aspartate Amino Transferase 79 U/L (0-34); B-Type Natriuretic Peptide > 3280 pg/mL (0-100); BUN/Creatinine Ratio 15 Ratio (12-20); Bilirubin,Total 0.2 mg/dL (0.3-1.2); Blood Urea Nitrogen 70 mg/dL (9-23); Calcium 8.2 mg/dL (8.3-10.6); Calcium (Corrected) 8.2 mg/dL (8.5-10.1); Carbon Dioxide 23.8 mMol/L (20.0-31.0); Chloride 108 mMol/L (98-107); Creatinine (Component) 4.7 mg/dL (0.6-1.3); Estimated Creatinine Clearance 9.1 mL/min (>60); Globulin 3.0 gm/dL (2.3-3.5); Glucose 117 mg/dL (74-106); Lipase 41 U/L (12-53); Magnesium 1.8 mg/dL (1.6-2.6); Osmolality,Calculated 306 (275-295); Potassium 3.8 mMol/L (3.4-5.1); Sodium 143 mMol/L (136-145); Total Protein 7.2 gm/dL (5.7-8.2); eGFR 9 See Note
[2025-03-22 10:16] LABS: Troponin I 0.079 ng/mL (0.0-0.045)
[2025-03-22] MEDS: hydrALAZINE INJ 20 MG/ML VIAL 10 MG IVP (12:35)
== END 2025-03-22 12:53 | disposition home or self-care (01) ==
PROVIDERS: Emergency Provider Emergency Medicine; PCP Internal Medicine
DX: I16.0 Hypertensive urgency (principal); Z91.158 Patient's noncompliance with renal dialysis for other reason; I50.9 Heart failure, unspecified; I13.2 Hypertensive heart and chronic kidney disease with heart failure and with stage 5 chronic kidney disease, or end stage renal disease; F17.210 Nicotine dependence, cigarettes, uncomplicated; E78.00 Pure hypercholesterolemia, unspecified
CPT/HCPCS: 36415; 71045; 80053; 83690; 83735; 83880; 84484; 85025; 85610; 85730; 93005; 96374; 96375; 99284; J0360; J3490; J1920

== ENCOUNTER 2025-04-21 09:20 | Inpatient (IN) | payer MEDICARE, MEDICAID, SELFPAY ==
[2025-04-21] VITALS (43 sets, daily range): BP systolic 135–223; BP diastolic 77–179; PULSE 70–116; RESP 18–97; TEMP 36.1–37.1; O2SAT 92–100; BMI 21.2; BMI 20.5
--- NOTE | 2025-04-21 10:41 | EDNOTE_ITS ---
ED SOB =RME/HPI General Chief Complaint: Shortness of Breath/Dyspnea Stated Complaint: SOB Arrival date/time: 04/21/25 09:20 Limitations: no limitations RME / HPI RME / HPI Narrative: 69 year old female with history of CHF (EF 45-50% 10/2024), hypertension, ESRD on HD Tuesdays and Fridays, COPD, breast cancer s/p resection presents to the ED BIBA from home for evaluation of shortness of breath today. Accompanied by a cough. Reports shortness of breath today is similar to previous COPD exacerbations. Additionally reports missing her dialysis treatments this week. Denies fevers, chills, chest pain, abdominal pain, n/v/d. Related Data Home Medications ?Medication ?Instructions ?Recorded ?Confirmed furosemide 20 mg tablet 20 mg PO .qod 02/01/2502/10 Allergies Allergy/AdvReac Type Severity Reaction Status Date / Time iodine Allergy Severe Rash Verified 04/21/25 09:28 Review of Systems Review of Systems Systems Reviewed: All systems reviewed, normal except as documented ED Exam General Limitations: Present no limitations General appearance: Present alert and other (tachypneic ) Head Head exam: Present atraumatic, normocephalic and normal inspection Eye Eye exam: Present normal appearance, PERRL and EOMI ENT ENT exam: Present normal exam, normal oropharynx and mucous membranes moist Neck Neck exam: Present normal inspection, full ROM and trachea midline Chest Chest inspection: Present other (Breast implant noted on the right) Respiratory Respiratory exam: Present other (diminished breath sounds bilateraly, crackles bases R>L) Cardiovascular Cardiovascular exam: Present regular rate, normal rhythm and normal heart sounds Abdominal Exam Abdominal exam: Present soft and normal bowel sounds Extremities Exam Extremities exam: Present normal inspection and full ROM Back Exam Back exam: Present normal inspection and full ROM Neurological Exam Neurological exam: Present alert, oriented X3 and CN II-XII intact Psychiatric Psychiatric exam: Present normal affect and normal mood Skin Skin exam: Present warm, dry, intact and normal color Course Quality Measures none Orders Category Date Time Status COVID-19 Screening Questionnaire NOW Care 04/21/25 12:14 Active Client Service Coordinator NOW Care 04/21/25 10:58 Active Continuous Pulse Oximetry NOW Care 04/21/25 10:58 Completed Decision to Admit X1 Care 04/21/25 12:14 Active EKG (ED ONLY) *Do not use* NOW Care 04/21/25 10:58 Completed Hemodialysis Urgent Care 04/21/25 13:01 Active Insert IV NOW Care 04/21/25 10:58 Active Insert [Insert IV] NOW Care 04/21/25 10:58 Active Consult to Nephrology Stat Cons 04/21/25 12:14 Ordered EKG (ED Only) Stat Exams 04/21/25 10:58 Draft XR chest 1V portable Stat Exams 04/21/25 10:58 Completed B-Type Natriuretic Peptide Stat Lab 04/21/25 11:51 Completed CBC Stat Lab 04/21/25 11:51 Completed Comprehensive Metabolic Panel Stat Lab 04/21/25 11:51 Completed Lactic Acid [Lactate (Lactic Acid)] Stat Lab 04/21/25 11:48 Completed Magnesium Stat Lab 04/21/25 11:51 Completed Partial Thromboplastin Time Stat Lab 04/21/25 11:51 Completed Prothrombin Time with INR Stat Lab 04/21/25 11:51 Completed Troponin I Stat Lab 04/21/25 11:51 Completed Venous Blood Gas Stat Lab 04/21/25 11:48 Completed ALBUTEROL RT 3ml [Proventil Rt 3ml] Med 04/21/25 10:58 Discontinued 5 mg INH X1 ONE MethylPREDNISolone.* [SoluMEDROL Inj] Med 04/21/25 10:58 Discontinued 125 mg IVP X1 ONE Sodium Chloride 0.9% 1000 ml [Ns] 1,000 ml Med 04/21/25 10:58 Discontinued IV 100 mls/hr cloNIDine HCL [Catapres] Med 04/21/25 11:40 Discontinued 0.2 mg PO X1 ONE hydrALAZINE INJ [Apresoline Inj] Med 04/21/25 11:40 Discontinued 10 mg IVP X1 ONE Oxygen Delivery NOW RT 04/21/25 10:58 Active Vital Signs Vital signs: Vital Signs Temperature 98.5 F 04/21/25 09:39 Pulse Rate 101 H 04/21/25 09:39 Respiratory Rate 22 H 04/21/25 09:39 Blood Pressure 220/179 H 04/21/25 09:39 Pulse Oximetry (%) 98 04/21/25 09:39 Oxygen Delivery Method Nasal Cannula 04/21/25 09:39 Oxygen Flow Rate 4 04/21/25 09:39 Shortness of Breath / Dyspnea MDM Narrative MDM Narrative:: Shira Wylie am scribing for and in the presence of Dr. Kothari. Patient data External records reviewed:: [facility] previous records (I reviewed ED visit on 03/22/2025 ) and EMS form Clinical information provided by:: patient and EMS Social determinants that could affect healthcare access:: substance use (methamphetamine use ) Patient has the following chronic illnesses:: CHF (EF 45-50% 10/2024), hypertension, ESRD on HD Tuesdays and Fridays, COPD, breast cancer s/p resection How is presenting disease/condition affected by chronic disease/condition?: exacerbated by Evaluation data The following diagnostics were reviewed and interpreted by me:: lab results, radiology exam(s) and EKG tracing(s) (04/21/2025 @ 11:22 AM. Sinus tachycardia, rate 100, frequent PVCs, left ventricular hypertrophy, no STEMI. ) Lab and/or radiology exams considered but not ordered:: None Interpretation Summary: Ordering Physician: Sin Kothari MD Date of Service: 04/21/25 Procedure(s): XR chest 1V portable Accession Number(s): [id number] cc: Sin Kothari MD; Alton Vera MD; Panfilo Vasquez MD~ Examination: AP chest single view Technique one AP portable upright chest single view Date and time: April 21, 2025 1111 hours Comparison March 22, 2025 INDICATIONS: Chest pain coughing today. FINDINGS: Moderate enlargement left ventricle Moderate vascular congestion Right axillary surgical clips No lobar pneumonia or valerio pulmonary edema Prominent osteopenia Stable position right internal jugular dialysis catheter IMPRESSION: Moderate vascular congestion Dictated By: Panfilo Vasquez MD Signed By: <Electronically signed by Panfilo Vasquez MD in OV> 04/21/25 1147 Medications / Prescriptions Medications or Prescriptions considered but not ordered:: None Medication administrations:: Medication Administration History Discontinued Medications Albuterol (Albuterol Rt 2.5 Mg/3 Ml Nebu) 5 mg INH X1 ONE Stop: 04/21/25 10:59 Last Admin: 04/21/25 12:12 Dose: 5 mg Documented By: [facility] Clonidine (Clonidine Hcl 0.1 Mg Tablet) 0.2 mg PO X1 ONE Stop: 04/21/25 11:41 Last Admin: 04/21/25 12:13 Dose: 0.2 mg Documented By: Hydralazine HCl (Hydralazine Inj 20 Mg/Ml Vial) 10 mg IVP X1 ONE Stop: 04/21/25 11:41 Last Admin: 04/21/25 12:12 Dose: 10 mg Documented By: MEGHAN Sodium Chloride (Ns) 1,000 mls @ 100 mls/hr IV .Q10H ONE Stop: 04/21/25 20:57 Last Admin: 04/21/25 11:20 Dose: 100 mls/hr Documented By: MEGHAN Methylprednisolone Sodium Succinate (Methylprednisolone Sod Succ 62.5 Mg/Ml 2ml Vial) 125 mg IVP X1 ONE Stop: 04/21/25 10:59 Last Admin: 04/21/25 11:19 Dose: 125 mg Documented By: MEGHAN See above Consultations Consultation(s) initiated? (list below): Yes Consultation #1 (Physician, Specialty, Details): I spoke with manager strategy & account Dr. Pulido. Discussed patients PMHx, HPI, ED course, exam findings, labs, and radiology results. She agrees to consult. Time: 12:00 Consultation #2 (Physician, Specialty, Details): I spoke with resident working with Dr. Maharaj. Discussed patients PMHx, HPI, ED course, exam findings, labs, and radiology results. The hospitalist agree to accept the patient for admission. Time: 12:11 Diagnosis Shortness of Breath Differential Diagnosis: acute exacerbation of chronic obstructive airways disease, congestive heart failure, community acquired pneumonia and asthma with exacerbation Most likely diagnosis given after review of the tests above:: Accelerated hypertension Exacerbation of COPD Respiratory failure ESRD Vascular congestion Admission Indicated Admission indicated?: indicated Admission Request Was there a request for admission?: Yes Admission Attestation Admission request attestation: Discussed case with [] from Hospitalist service regarding admission. Discussed patients ED course, exam findings, labs, and radiology results. The Hospitalist [agrees,declines] to accept the patient for admission. Disposition Plan Disposition Plan: Admit Critical Care Time Critical Care Time Critical Care Time: Yes Total Critical Care Time (min.): 60 Attestation: The high probability of sudden, clinically significant deterioration in the patient's condition required the highest level of my preparedness to intervene urgently. The services I provided to this patient were to treat and/or prevent clinically significant deterioration. Services included the following: chart data review, reviewing nursing notes and/or old charts, documentation time, office 365 consultant collaboration regarding findings and treatment options, medication orders and management, direct patient care, vital sign assessments and ordering, interpreting and reviewing diagnostic studies and lab tests. Aggregate critical care time includes only time during which I was engaged in work directly related to the patient's care, as described above, whether at bedside or elsewhere in the Emergency Department. It did not include time spent performing other reported procedures or the services of residents, students, nurses or physician assistants. Discharge Plan Plan Patient Disposition: Admit Acute Care w/in Hospital Prescriptions/Referrals Prescriptions/Med Rec: No Action furosemide 20 mg tablet 20 mg PO .qod Referrals: Alton Vera MD [Primary Care Provider] - In 1 week Problem List Clinical Impression: Accelerated hypertension, COPD exacerbation, Respiratory failure, End-stage renal disease (ESRD), Pulmonary vascular congestion Patient/Caregiver Discharge Instructions Print Language: Syriac Stand Alone Forms: Efrn Award Info., Patient Portal Info Letter
--- NOTE | 2025-04-21 10:58 | XR_ITS ---
Examination: AP chest single view Technique one AP portable upright chest single view Date and time: April 21, 2025 1111 hours Comparison March 22, 2025 INDICATIONS: Chest pain coughing today. FINDINGS: Moderate enlargement left ventricle Moderate vascular congestion Right axillary surgical clips No lobar pneumonia or valerio pulmonary edema Prominent osteopenia Stable position right internal jugular dialysis catheter IMPRESSION: Moderate vascular congestion
--- NOTE | 2025-04-21 10:58 | EKG_ITS ---
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
[2025-04-21] MEDS: MethylPREDNISolone SOD SUCC 62.5 MG/ML 2ML VIAL 125 MG IVP (11:19)
[2025-04-21] MEDS: SODIUM CHLORIDE 0.9% 1000 ML 1,000 ML 100 ML IV (11:20)
[2025-04-21 12:03] LABS: Lactate (Lactic Acid) 1.6 mMol/L (0.4-2.0)
[2025-04-21 12:04] LABS: Basophils # (Auto) 0.1 Thou/mm3 (0.0-0.2); Basophils % (Auto) 1 % (0-2.5); Eosinophils # (Auto) 0.0 Thou/mm3 (0.0-0.5); Eosinophils % (Auto) 1 % (0-10); Hematocrit 37.0 % (36.0-46.0); Hemoglobin 12.2 g/dL (12.0-16.0); Immature Granulocytes Auto 0.04 Thou/mm3 (0.00-0.00); Lymphocytes # (Auto) 1.2 Thou/mm3 (1.0-4.8); Lymphocytes % (Auto) 13 % (10-50); Mean Corpuscular HGB Conc 33.0 g/dl (31.0-37.0); Mean Corpuscular Hemoglobin 32.1 pg (25.0-35.0); Mean Corpuscular Volume 97 fL (80-100); Monocytes # (Auto) 0.6 Thou/mm3 (0.0-0.8); Monocytes % (Auto) 7 % (0-12); Neutrophils # (Auto) 6.8 Thou/mm3 (1.8-7.7); Neutrophils % (Auto) 78 % (37-80); Nucleated Red Blood Cell # 0.00 Thou/mm3 (0.00-0.00); Nucleated Red Blood Cell % 0 /100 WBC (0); Platelet Count 207 Thou/mm3 (140-440); RDW Standard Deviation 49.9 fL (36.4-46.3); Red Blood Count 3.80 Miln/mm3 (4.00-5.20); White Blood Count 8.7 Thou/mm3 (3.6-11.0)
[2025-04-21 12:05] LABS: Base Excess, Venous -6 (-3-3); O2 Saturation, Venous 93 % (96-97); PCO2, Venous 34 mmHg (36-56); PO2, Venous 64 mmHg (15-58); pH, Venous 7.35 (7.33-7.66)
[2025-04-21] MEDS: ALBUTEROL RT 2.5 MG/3 ML NEBU 5 MG INH (12:12)
[2025-04-21] MEDS: hydrALAZINE INJ 20 MG/ML VIAL 10 MG IVP (12:12)
[2025-04-21 12:20] LABS: INR 1.2 (0.9-1.3); Partial Thromboplastin Time 27.8 Seconds (22.0-36.0); Prothrombin Time 12.7 Seconds (9.0-12.2)
[2025-04-21 12:32] LABS: Alanine Aminotransferase 85 U/L (10-49); Albumin, Serum 3.9 gm/dL (3.4-4.8); Albumin/Globulin Ratio 1.4 (1.2-2.2); Alkaline Phosphatase 133 U/L (46-116); Anion Gap 15 (7-16); Aspartate Amino Transferase 132 U/L (0-34); BUN/Creatinine Ratio 14 Ratio (12-20); Bilirubin,Total 0.6 mg/dL (0.3-1.2); Blood Urea Nitrogen 51 mg/dL (9-23); Calcium 7.9 mg/dL (8.3-10.6); Calcium (Corrected) 8.0 mg/dL (8.5-10.1); Carbon Dioxide 22.3 mMol/L (20.0-31.0); Chloride 105 mMol/L (98-107); Creatinine (Component) 3.7 mg/dL (0.6-1.3); Estimated Creatinine Clearance 11.5 mL/min (>60); Globulin 2.7 gm/dL (2.3-3.5); Glucose 103 mg/dL (74-106); Magnesium 1.2 mg/dL (1.6-2.6); Osmolality,Calculated 296 (275-295); Potassium 3.2 mMol/L (3.4-5.1); Sodium 142 mMol/L (136-145); Total Protein 6.6 gm/dL (5.7-8.2); eGFR 13 See Note
[2025-04-21 12:43] LABS: Troponin I 0.100 ng/mL (0.0-0.045)
[2025-04-21 13:19] LABS: B-Type Natriuretic Peptide > 3280 pg/mL (0-100)
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
[2025-04-21] MEDS: FUROSEMIDE INJ 10 MG/ML 4ML VIAL 40 MG IVP (14:28)
--- NOTE | 2025-04-21 14:44 | PC.CC ---
Patient is a 69 year old Female who presents to the Emergency Department for Shortness of Breath. EGG CASER Patti and DIE DESIGNER favian Sintia introduced self, role reason for visit. Limits of confidentiality were discussed. Patient appears to be alert and oriented to self, location and situation. Patient was engaged in initial assessment. Patient informs she is currently living in a shack with her boyfriend at [address] [place] [address]. Patient stated her surrogate decision maker is her boyfriend Jonh Jeffries ([phone]). Patient stated she has difficulty ambulating and needs a walker to help her ambulate. Patient uses oxygen but reports no CPAP machine usage. She is on dialysis two times a week with Dr. Pulido but has missed several of her appointments because she does not feel well enough to attend. During her previous hospitalization, upon discharge she was placed in a rehab home but left AMA. Patient stated her primary doctor is Dr. Thomas at [facility] and her pharmacy of preference is [facility]. Upon discharge patient would like to be placed in a rehab facility. oil well services dispatcher will follow up with any discharge needs.
--- NOTE | 2025-04-21 15:22 | PD.NEPHCONS ---
History of Present Illness Data of Consult Consult date: 04/21/25 Requesting Physician: Alisia Maharaj DO Primary Care Provider: Alton Vera MD Consult Narrative Reason for consult: ESRD on HD History of present illness: Ms. Freed is a 69-year-old female with a past medical history of end-stage renal disease (cardiorenal syndrome) on hemodialysis Thursday and , hypertension, CHF, history of breast cancer s/p rt resection, COPD, methamphetamine abuse disorder was admitted to [facility] with weakness and requesting dialysis. Apparently patient has been skipping a lot of dialysis sessions due to being homeless and unable to be picked by transport drivers. She was discharged to her boyfriend's home. However patient became homeless as boyfriend was not able to take care of her and she presented to the emergency department with shortness of breath. Renal consultation was requested for need for dialysis. Patient currently being dialyzed twice weekly at the [facility] dialysis unit via right IJ PermCath. WBC 8.7, hemoglobin 12.2, platelets 207. Sodium 142, potassium 3.2, BUN 51, creatinine 3.7, GFR 13, calcium 8.0, magnesium 1.2, AST 132, ALT 85, alk phos 133, BNP greater than 3280, troponin 0.1 chest x-ray showed moderate vascular congestion. Patient currently seen on dialysis. cc:: cc: Alisia Maharaj DO Review of Systems Review of Systems Narrative Review of Systems: CONSTITUTIONAL: Patient denies any fever, chills. Complaining of fatigue HEENT: Denies any visual disturbances or hearing problems. CARDIOVASCULAR: Patient denies any chest pain. c/o shortness of breath, swelling in the lower extremities. PULMONARY: Patient complaining of shortness of breath, cough. GASTROINTESTINAL: Patient denies any abdominal pain, constipation, nausea, vomiting, diarrhea. GENITOURINARY: Patient denies any urinary symptoms of burning or frequency or hematuria, denies any form in the urine. SKIN: Denies any rash. MUSCULOSKELETAL: Denies any muscular skeletal problems NEUROLOGICAL: Denies any neurological problems of strokes, seizures or confusion. Denies any memory problems. PSYCHIATRIC: Denies any depression or anxiety. LYMPHATICS : No lymphadenopathy Past Medical History Past Medical History NEUROLOGIC: Negative Neurological Disorders CARDIAC: Positive Cardiac Disorders, Hypercholesterolemia, Congestive Heart Failure, Edema and Hypertension RESPIRATORY: Positive Chronic Obstructive Pulmonary Disease (COPD), Bronchitis and Pneumonia GASTROINTESTINAL: Positive Gastrointestinal Disorders, Gastrointestinal Bleed and Ulcer GENITOURINARY: Positive Genitourinary Disorders, Renal Disease and Dialysis REPRODUCTIVE: Positive Breast Cancer and Previous Pregnancies MUSCULOSKELETAL: Positive Musculoskeletal Disorders and Arthritis ENDOCRINE: Negative Endocrine Disorders, Diabetes Mellitus Type 1 or Diabetes Mellitus Type 2 HEMATOLOGIC: Positive Blood Disorders and Anemia PSYCHO/SOCIAL: Positive Recreational Drug Use, Depression, Anxiety and Post Traumatic Stress Disorder OTHER HISTORY: Positive Cosmetic Surgery (breast cancer surgery cosmetic. ), Falls, Blood Transfusions, Chicken Pox, Cancer and Breast Cancer; Negative Autoimmune Disease, Blood Transfusion Reaction or Anesthesia Reactions Family History FAMILY HISTORY: Positive Family Gastrointestinal Problems and Family Cancer; Negative Family Respiratory Disorders, Family Cardiac Disorders, Family Surgery or Family Anesthesia Reaction Surgical History SURGICAL: Positive Mastectomy, Lumpectomy and Section; Negative Abdominal Surgery, Gastric Bypass Surgery, Gastrostomy or Bowel Surgery Social History SMOKING STATUS: Light (< 1 pack/day) SECOND HAND EXPOSURE: No ALCOHOL LAST INTAKE: Unknown Meds Home Medications and Allergies Allergies Allergy/AdvReac Type Severity Reaction Status Date / Time iodine Allergy Severe Rash Verified 04/21/25 09:28 Exam Vital Signs Temp Pulse Resp BP Pulse Ox O2 Del Method O2 Flow Rate 36.1 C 83 19 154/99 H 97 Room Air 1 04/21/25 18:20 04/21/25 18:20 04/21/25 18:20 04/21/25 18:20 04/21/25 18:20 04/21/25 18:20 04/21/25 18:09 Narrative Exam GENERAL APPEARANCE: Patient currently seen in dialysis. NECK: Neck supple, no JVD or bruit CARDIOVASCULAR: Heart regular, no murmurs LUNGS/CHEST: Decreased breath sounds bilaterally ABDOMEN: Soft, nontender, nondistended. No masses. Normal bowel sounds. EXTREMITIES: 1+ edema in the lower extremities SKIN: Skin exam normal without any rashes . Right IJ PermCath MUSCULOSKELETAL: in bed, able to move her extremities PSYCHIATRIC: Normal mood, affect LYMPHATICS: No lymphadenopathy noted NEUROLOGICAL : No neurological deficits Results Labs 04/22/25 05:40 04/22/25 05:40 Labs: Short CBC 04/21/25 Range/Units 11:51 WBC 8.7 (3.6-11.0) Thou/mm3 Hgb 12.2 (12.0-16.0) g/dL Hct 37.0 (36.0-46.0) % Plt Count 207 D (140-440) Thou/mm3 BMP 04/21/25 11:51 Sodium 142 Potassium 3.2 L Chloride 105 Carbon Dioxide 22.3 BUN 51 H Creatinine 3.7 H Glucose 103 Calcium 7.9 L Cardiac Enzymes 04/21/25 04/21/25 Range/Units 11:51 19:32 Troponin I 0.100 H* 0.070 H* (0.0-0.045) ng/mL Liver Function 04/21/25 Range/Units 11:51 Total Bilirubin 0.6 (0.3-1.2) mg/dL AST 132 H (0-34) U/L ALT 85 H (10-49) U/L Alkaline Phosphatase 133 H (46-116) U/L Albumin 3.9 (3.4-4.8) gm/dL ABG Interpretation ABG results: 04/21/25 11:48 VBG pH 7.35 VBG pCO2 34 L VBG pO2 64 H VBG Base Excess -6 L Assessment & Plan Additional Assessment & Plan Additional Plan: Johana Freed is a 69-year-old female with PMHx of HFrEF (EF 30 to 35%, 06/2024),ESRD, COPD, hypertension, breast cancer status post bilateral mastectomy, and history of methamphetamine use who was admitted for management of decompensated CHF exacerbation and hypertension. Nephrology consulted for need for dialysis #ESRD due to cardiorenal syndrome type 2 Continue with diuretics, fluid restriction. Patient currently seen on dialysis. Tolerating dialysis without any problems. Hemodialysis for 3 hours, 2K, ultrafiltration 2-3 L, Epogen 6000, no heparin ordered. Plan of care discussed with the dialysis nurse. Please see dialysis flowsheet for further details. #Hypertension On carvedilol, nifedipine, losartan-however patient lost all her medications. # decompensated heart failure - HFrEF--currently on dialysis #History of COPD Requesting albuterol inhaler #Cirrhosis secondary to alcoholism # h/o Polysubstance abuse History of methamphetamine abuse Thank Tayler for allowing me to participate in the care of Ms. Freed
--- NOTE | 2025-04-21 15:59 | PC.SS ---
Update: Patient is currently in dialysis treatment. SS spoke to patient because physician suggested rehab stay. Patient will require a PT eval for prior authorization. However, when discussed with patient, she states she isn't sure she wants to go to SNF. Patient states she was living with her friend, Jonh. [place] missed a few dialysis sessions due to [place] Patient states she can walk. She wants a new walker. Walker is at her friends house. She has 02 and this is at her friends house. Patient states she has her bank card on her as well. Patient confirmed if she cannot d/c to SNF she can also return to her friend, Jonh's house. This will need to be confirmed with Jonh.
[2025-04-21] MEDS: HEPARIN SOD INJ 1000 UNIT/ML VIAL 10 ML 3800 UNIT INDWELLCAT (16:52)
[2025-04-21] MEDS: Magnesium Sulfate 2 GM Ivpb 2 GM/50 ML BAG IV (18:30)
[2025-04-21] MEDS: HEPARIN SOD INJ 5000 UNIT/ML VIAL SC (18:36)
[2025-04-21] MEDS: ALBUTEROL/IPRATROPIUM (Duoneb) RT SOL 3 ML NEBU INH ×2 (18:58→23:16)
[2025-04-21 20:20] LABS: Troponin I 0.070 ng/mL (0.0-0.045)
[2025-04-22] VITALS (13 sets, daily range): BP systolic 135–168; BP diastolic 83–101; PULSE 79–100; RESP 16–98; TEMP 36–36.4; O2SAT 95–99; BMI 20.9
--- NOTE | 2025-04-22 02:13 | PC.NURSE ---
Made Dr. Tejeda aware patients blood pressure elevated 166/99. MD to consult team . reassess BP in 15 minutes
[2025-04-22] MEDS: hydrALAZINE INJ 20 MG/ML VIAL 10 MG IVP (02:39)
--- NOTE | 2025-04-22 02:47 | PC.NURSE ---
administered hydralazine 10mg IVP for HTN x 1 dose at 0239, contacted pharmacy regarding scheduled subq heparin to be administered at 0230, made pharmacy aware last admin dose was 1836. per pharmacy next dose to be administered at 0630. change order and pharmacy verified
[2025-04-22] MEDS: ALBUTEROL/IPRATROPIUM (Duoneb) RT SOL 3 ML NEBU INH ×4 (03:43→14:34)
[2025-04-22 05:57] LABS: Basophils # (Auto) 0.1 Thou/mm3 (0.0-0.2); Basophils % (Auto) 1 % (0-2.5); Eosinophils # (Auto) 0.0 Thou/mm3 (0.0-0.5); Eosinophils % (Auto) 0 % (0-10); Hematocrit 38.3 % (36.0-46.0); Hemoglobin 12.7 g/dL (12.0-16.0); Immature Granulocytes Auto 0.03 Thou/mm3 (0.00-0.00); Lymphocytes # (Auto) 0.6 Thou/mm3 (1.0-4.8); Lymphocytes % (Auto) 9 % (10-50); Mean Corpuscular HGB Conc 33.2 g/dl (31.0-37.0); Mean Corpuscular Hemoglobin 31.5 pg (25.0-35.0); Mean Corpuscular Volume 95 fL (80-100); Monocytes # (Auto) 0.5 Thou/mm3 (0.0-0.8); Monocytes % (Auto) 7 % (0-12); Neutrophils # (Auto) 5.4 Thou/mm3 (1.8-7.7); Neutrophils % (Auto) 83 % (37-80); Nucleated Red Blood Cell # 0.00 Thou/mm3 (0.00-0.00); Nucleated Red Blood Cell % 0 /100 WBC (0); Platelet Count 200 Thou/mm3 (140-440); RDW Standard Deviation 48.8 fL (36.4-46.3); Red Blood Count 4.03 Miln/mm3 (4.00-5.20); White Blood Count 6.6 Thou/mm3 (3.6-11.0)
[2025-04-22] MEDS: HEPARIN SOD INJ 5000 UNIT/ML VIAL SC (06:17)
[2025-04-22 06:20] LABS: INR 1.1 (0.9-1.3); Partial Thromboplastin Time 26.0 Seconds (22.0-36.0); Prothrombin Time 12.4 Seconds (9.0-12.2)
[2025-04-22 06:40] LABS: Alanine Aminotransferase 58 U/L (10-49); Albumin, Serum 3.8 gm/dL (3.4-4.8); Albumin/Globulin Ratio 1.5 (1.2-2.2); Alkaline Phosphatase 129 U/L (46-116); Anion Gap 12 (7-16); Aspartate Amino Transferase 46 U/L (0-34); BUN/Creatinine Ratio 12 Ratio (12-20); Bilirubin,Total 0.3 mg/dL (0.3-1.2); Blood Urea Nitrogen 38 mg/dL (9-23); Calcium 8.4 mg/dL (8.3-10.6); Calcium (Corrected) 8.6 mg/dL (8.5-10.1); Carbon Dioxide 23.9 mMol/L (20.0-31.0); Chloride 105 mMol/L (98-107); Creatinine (Component) 3.1 mg/dL (0.6-1.3); Estimated Creatinine Clearance 13.8 mL/min (>60); Globulin 2.5 gm/dL (2.3-3.5); Glucose 141 mg/dL (74-106); Magnesium 1.9 mg/dL (1.6-2.6); Osmolality,Calculated 292 (275-295); Phosphorous 3.9 mg/dL (2.4-5.1); Potassium 4.0 mMol/L (3.4-5.1); Sodium 141 mMol/L (136-145); Total Protein 6.3 gm/dL (5.7-8.2); eGFR 15 See Note
[2025-04-22 06:41] LABS: Troponin I 0.062 ng/mL (0.0-0.045)
--- NOTE | 2025-04-22 07:30 | PD.RESPRO ---
Documentation for date of: 04/22/25 Exam Vital Signs Temp Pulse Resp BP Pulse Ox O2 Del Method O2 Flow Rate 97.6 F 82 17 135/84 H 99 Room Air 1 04/22/25 04:00 04/22/25 06:43 04/22/25 06:43 04/22/25 04:00 04/22/25 06:43 04/22/25 04:00 04/21/25 18:09 Objective Labs 04/22/25 05:40 04/22/25 05:40 Labs: Laboratory Results - last 24 hr 04/21/25 04/21/25 04/21/25 11:48 11:51 19:32 WBC 8.7 RBC 3.80 L Hgb 12.2 Hct 37.0 MCV 97 MCH 32.1 MCHC 33.0 RDW Std Deviation 49.9 H Plt Count 207 D Neut % (Auto) 78 Lymph % (Auto) 13 [place] % (Auto) 7 Eos % (Auto) 1 Baso % (Auto) 1 Neut # (Auto) 6.8 Lymph # (Auto) 1.2 [place] # (Auto) 0.6 Eos # (Auto) 0.0 Baso # (Auto) 0.1 Immature Gran # (Auto) 0.04 H Absolute Nucleated RBC 0.00 Immature Gran % 1 H Nucleated RBC % 0 PT 12.7 H INR 1.2 APTT 27.8 VBG pH 7.35 VBG pCO2 34 L VBG pO2 64 H VBG O2 Sat (Sarah) 93 L VBG Base Excess -6 L Sodium 142 Potassium 3.2 L Chloride 105 Carbon Dioxide 22.3 Anion Gap 15 BUN 51 H Creatinine 3.7 H Estim Creat Clear Calc 11.5 L eGFR 13 L* BUN/Creatinine Ratio 14 Glucose 103 Calculated Osmolality 296 H Lactic Acid 1.6 Calcium 7.9 L Corrected Calcium 8.0 L Phosphorus Magnesium 1.2 L Total Bilirubin 0.6 AST 132 H ALT 85 H Alkaline Phosphatase 133 H Troponin I 0.100 H* 0.070 H* B-Natriuretic Peptide > 3280 H* Total Protein 6.6 Albumin 3.9 Globulin 2.7 Albumin/Globulin Ratio 1.4 04/22/25 05:40 WBC 6.6 RBC 4.03 Hgb 12.7 Hct 38.3 MCV 95 MCH 31.5 MCHC 33.2 RDW Std Deviation 48.8 H Plt Count 200 Neut % (Auto) 83 H Lymph % (Auto) 9 L [place] % (Auto) 7 Eos % (Auto) 0 Baso % (Auto) 1 Neut # (Auto) 5.4 Lymph # (Auto) 0.6 L [place] # (Auto) 0.5 Eos # (Auto) 0.0 Baso # (Auto) 0.1 Immature Gran # (Auto) 0.03 H Absolute Nucleated RBC 0.00 Immature Gran % 1 H Nucleated RBC % 0 PT 12.4 H INR 1.1 APTT 26.0 VBG pH VBG pCO2 VBG pO2 VBG O2 Sat (Sarah) VBG Base Excess Sodium 141 Potassium 4.0 D Chloride 105 Carbon Dioxide 23.9 Anion Gap 12 BUN 38 H Creatinine 3.1 H D Estim Creat Clear Calc 13.8 L eGFR 15 L BUN/Creatinine Ratio 12 Glucose 141 H Calculated Osmolality 292 Lactic Acid Calcium 8.4 Corrected Calcium 8.6 Phosphorus 3.9 Magnesium 1.9 Total Bilirubin 0.3 AST 46 H ALT 58 H Alkaline Phosphatase 129 H Troponin I 0.062 H* B-Natriuretic Peptide Total Protein 6.3 Albumin 3.8 Globulin 2.5 Albumin/Globulin Ratio 1.5 ABG Interpretation ABG results: 04/21/25 11:48 VBG pH 7.35 VBG pCO2 34 L VBG pO2 64 H VBG Base Excess -6 L Quality Measures Quality Measures none Assessment & Plan Assessment Current Active Medications: Generic Name Dose Route Start Last Admin Trade Name Freq PRN Reason Stop Dose Admin Acetaminophen 650 mg 04/21/25 14:07 Acetaminophen 325 Mg Tablet PO 05/21/25 14:06 Q6H PRN Fever >101.5 or Pain 1-3 Hydrocodone Bitart/Acetaminophen 1 tab 04/21/25 14:11 Hydrocodone/Apap 5/325 Tablet PO 04/26/25 14:10 Q4HR PRN PAIN SCALE 4-6 (Moderate Albuterol/Ipratropium 3 ml 04/21/25 15:00 04/22/25 06:42 Albuterol/Ipratropium (Duoneb) Rt Dee 3 Ml Nebu INH 05/21/25 14:59 3 ml Q4HRRT KENNEDY Administration Heparin Sodium (Porcine) 3,800 unit 04/21/25 16:46 04/21/25 16:52 Heparin Sod Inj 1000 Unit/Ml Vial 10 Ml INDWELLCAT 05/05/25 16:45 3,800 unit X1 PRN Administration DIALYSIS Heparin Sodium (Porcine) 5,000 unit 04/22/25 06:30 04/22/25 06:17 Heparin Sod Inj 5000 Unit/Ml Vial SC 05/06/25 06:29 5,000 unit Q12H KENNEDY Administration Scopolamine 1 mg 04/21/25 14:16 Scopolamine 1 Mg Tdsy TOP 05/21/25 14:15 Q72H PRN NAUSEA Sennosides 1 tab 04/21/25 14:11 Senna Tablet PO 05/21/25 14:10 QDAY PRN constipation Protocol
--- NOTE | 2025-04-22 11:50 | PD.RESCONSUL ---
HPI Data of Consult Requesting Physician: Alisia Maharaj DO Admitting Provider: Alisia Maharaj DO Attending Provider: Alisia Maharaj DO Primary Care Provider: Alton Vera MD Consult Narrative cc:: cc: Alisia Maharaj DO Exam Vital Signs Temp Pulse Resp BP Pulse Ox O2 Del Method O2 Flow Rate 96.9 F 85 18 153/94 H 99 Room Air 1 04/22/25 08:00 04/22/25 10:32 04/22/25 10:32 04/22/25 08:27 04/22/25 10:32 04/22/25 08:00 04/21/25 18:09 Results Labs 04/22/25 05:40 04/22/25 05:40 Labs: Short CBC 04/21/25 04/22/25 Range/Units 11:51 05:40 WBC 8.7 6.6 (3.6-11.0) Thou/mm3 Hgb 12.2 12.7 (12.0-16.0) g/dL Hct 37.0 38.3 (36.0-46.0) % Plt Count 207 D 200 (140-440) Thou/mm3 BMP 04/21/25 04/22/25 11:51 05:40 Sodium 142 141 Potassium 3.2 L 4.0 D Chloride 105 105 Carbon Dioxide 22.3 23.9 BUN 51 H 38 H Creatinine 3.7 H 3.1 H D Glucose 103 141 H Calcium 7.9 L 8.4 Cardiac Enzymes 04/21/25 04/21/25 04/22/25 Range/Units 11:51 19:32 05:40 Troponin I 0.100 H* 0.070 H* 0.062 H* (0.0-0.045) ng/mL Liver Function 04/21/25 04/22/25 Range/Units 11:51 05:40 Total Bilirubin 0.6 0.3 (0.3-1.2) mg/dL AST 132 H 46 H (0-34) U/L ALT 85 H 58 H (10-49) U/L Alkaline Phosphatase 133 H 129 H (46-116) U/L Albumin 3.9 3.8 (3.4-4.8) gm/dL ABG Interpretation ABG results: 04/21/25 11:48 VBG pH 7.35 VBG pCO2 34 L VBG pO2 64 H VBG Base Excess -6 L Quality Measures Quality Measures none Medications Home Medications and Allergies Home Medications ?Medication ?Instructions ?Recorded ?Confirmed ?Type furosemide 20 mg tablet 20 mg PO .qod 02/01/25 04/22/25 History Allergies Allergy/AdvReac Type Severity Reaction Status Date / Time iodine Allergy Severe Rash Verified 04/21/25 09:28 Visit Medications Acetaminophen (Acetaminophen 325 Mg Tablet) 650 mg PO Q6H PRN PRN Reason: Fever >101.5 or Pain 1-3 Stop: 05/21/25 14:06 Hydrocodone Bitart/Acetaminophen (Hydrocodone/Apap 5/325 Tablet) 1 tab PO Q4HR PRN PRN Reason: PAIN SCALE 4-6 (Moderate Stop: 04/26/25 14:10 Albuterol/Ipratropium (Albuterol/Ipratropium (Duoneb) Rt Dee 3 Ml Nebu) 3 ml INH Q4HRRT KENNEDY Stop: 05/21/25 14:59 Last Admin: 04/22/25 10:31 Dose: 3 ml Clonidine (Clonidine Hcl 0.1 Mg Tablet) 0.1 mg PO BID KENNEDY Stop: 05/22/25 08:59 Last Admin: 04/22/25 08:27 Dose: 0.1 mg Heparin Sodium (Porcine) (Heparin Sod Inj 1000 Unit/Ml Vial 10 Ml) 3,800 unit INDWELLCAT X1 PRN PRN Reason: DIALYSIS Stop: 05/05/25 16:45 Last Admin: 04/21/25 16:52 Dose: 3,800 unit Heparin Sodium (Porcine) (Heparin Sod Inj 5000 Unit/Ml Vial) 5,000 unit SC Q12H KENNEDY Stop: 05/06/25 06:29 Last Admin: 04/22/25 06:17 Dose: 5,000 unit Scopolamine (Scopolamine 1 Mg Tdsy) 1 mg TOP Q72H PRN PRN Reason: NAUSEA Stop: 05/21/25 14:15 Sennosides (Senna Tablet) 1 tab PO QDAY PRN; Protocol PRN Reason: constipation Stop: 05/21/25 14:10 Discontinued Medications Hydrocodone Bitart/Acetaminophen (Hydrocodone/Apap 5/325 Tablet) 0.5 tab PO X1 ONE Stop: 04/21/25 13:54 Albuterol (Albuterol Rt 2.5 Mg/3 Ml Nebu) 5 mg INH X1 ONE Stop: 04/21/25 10:59 Last Admin: 04/21/25 12:12 Dose: 5 mg Clonidine (Clonidine Hcl 0.1 Mg Tablet) 0.2 mg PO X1 ONE Stop: 04/21/25 11:41 Last Admin: 04/21/25 12:13 Dose: 0.2 mg Furosemide (Furosemide Inj 10 Mg/Ml 4ml Vial) 40 mg IVP X1 ONE Stop: 04/21/25 13:49 Last Admin: 04/21/25 14:28 Dose: 40 mg Heparin Sodium (Porcine) (Heparin Sod Inj 5000 Unit/Ml Vial) 5,000 unit SC Q12H KENNEDY Stop: 05/05/25 14:29 Last Admin: 04/22/25 02:46 Dose: Not Given Hydralazine HCl (Hydralazine Inj 20 Mg/Ml Vial) 10 mg IVP X1 ONE Stop: 04/21/25 11:41 Last Admin: 04/21/25 12:12 Dose: 10 mg Hydralazine HCl (Hydralazine Inj 20 Mg/Ml Vial) 10 mg IVP X1 ONE Stop: 04/22/25 02:15 Last Admin: 04/22/25 02:39 Dose: 10 mg Sodium Chloride (Ns) 1,000 mls @ 100 mls/hr IV .Q10H ONE Stop: 04/21/25 20:57 Last Admin: 04/21/25 11:20 Dose: 100 mls/hr Magnesium Sulfate (Magnesium Sulfate Ivpb) 2 gm in 50 mls @ 25 mls/hr IV X1 ONE Stop: 04/21/25 16:32 Last Admin: 04/21/25 18:30 Dose: 25 mls/hr Methylprednisolone Sodium Succinate (Methylprednisolone Sod Succ 62.5 Mg/Ml 2ml Vial) 125 mg IVP X1 ONE Stop: 04/21/25 10:59 Last Admin: 04/21/25 11:19 Dose: 125 mg Potassium Chloride (Potassium Chloride 20 Meq Tabcr) 40 meq PO X1 ONE Stop: 04/21/25 14:34 Last Admin: 04/21/25 18:29 Dose: 40 meq
--- NOTE | 2025-04-22 14:30 | ESDS_ITS ---
<Statement entered by Alisia Maharaj DO - 04/23/25 14:07> I, Alisia Maharaj DO, attest that I was physically present for the rubin portions of the service and evaluated the patient with the resident and I reviewed and discussed the case with the resident and agree with the resident's findings and plans of care as documented above Planned Discharge Date 04/22/25 DS: Providers Provider Date of admission: 04/21/25 14:32 Primary care physician: Alton Vera MD Admitting Provider: Alisia Maharaj DO Attending Provider on Admission: Alisia Maharaj DO Consults: 04/21/25 12:14 Consult to Nephrology Stat Comment: Consulting Provider: Victoria Pulido 04/21/25 16:03 PT [Referral Physical Therapy] Stat Comment: Physician Instructions: 04/21/25 18:46 Health Equity Referral - Knowledge Deficit Routine Comment: Positive screening for knowledge deficit needs. Health Equity Referral - Nutrition Routine Comment: Positive screening for nutrition needs. Health Equity Referral - Safety Routine Comment: Positive screening for safety needs. Health Equity Referral - Transportation Routine Comment: Positive screening for transportation needs. Health Equity Referral - Utilities Routine Comment: Positive screening for utility assistance needs. Attending Provider on DC: Alisia Maharaj DO Discharging Provider: Alisia Maharaj DO DS: Diagnosis Problem List Completed Was Problem List Reviewed/Reconciled?: Yes Hospital Course Hospital Course Hospital course: 69 year old female with history of CHF (EF 45-50% 10/2024), hypertension, ESRD on HD Tuesdays and Fridays, COPD, breast cancer s/p resection, medication and hemodialysis non-compliance was admitted to [facility] on 04/21/2025 for Acute on chronic hypoxic respiratory failure 2/2 fluid overload. Patient arrived to the ED with a temp: 98.5F Pulse 101 RR 22 BP: 220/179, Pulse Ox: 98%, Nasal cannula 4L flow rate. EKG showed sinus tachy, PVCs and LV hypertrophy. Chest xray showed mild vascular congestion. BNP and trops are elevated. Hydralazine and clonidine administered. Nephrology consulted for ESRD in setting of missed dialysis, patient is started back on hemodialysis. Medicine was consulted and patient made to the floors. While in the floors, patient received hemodialysis and [id number] breathing treatments. Patient's troponin eventually down trended, likely due to demand ischemia. Patient is also seen by physical therapy who recommended walker but no SNF at the time. Patient was also started on GDMT therapy in which she was discharged with as she has history of HFrEF. Patient was also given calcium binder as she is ESRD on hemodialysis. Patient was then discharged with the following instructions. Discharge instructions: Follow-up with your primary care provider within 1 week from discharge, if you do not have a primary care provider you can book an appointment at the [facility]: [address] [place] [id number] Use medications as prescribed, it is very important to use your medications as instructed to prevent worsening of your condition Follow-up with a meat counter clerk within 1 to 2 weeks from discharge Follow-up with a marketing data specialist within 1 week from discharge, continue your hemodialysis as per schedule In case of worsening of your symptoms please return to the ED as soon as possible Problem list: #Acute on chronic hypoxic respiratory failure #Fluid overload #ESRD #Medication noncompliance #Dialysis noncompliance #Hypertensive crisis, resolved #NSTEMI type II, likely related to demand ischemia Discharge summary was reviewed with my attending Dr. Carol Ann Miller, PGY-2 Time Spent with Patient Time attestation: Total time spent providing and/or coordinating discharge services: Time spent: Greater than 30 minutes Exam Vital Signs Temp Pulse Resp BP Pulse Ox O2 Del Method O2 Flow Rate 97.2 F 87 20 141/83 H 95 Room Air 1 04/22/25 12:00 04/22/25 12:04/22/25 12:04/22/25 12:04/22/25 12:04/22/25 12:04/21/25 18:09 Narrative Exam General Appearance: NAD, AAOx3 HEENT: NC/AT, no scleral icterus, no conjunctival pallor, MMM Lungs: CTAB bilat CVS: RRR, S1/S2 heard, no murmurs or rubs appreciated, Trace pedal edema ABD: Soft, non-tender, non-distended, BS + in all 4 quadrants EXT: no deformity/edema/lesions/cyanosis/clubbing, radial pulses 2+ BL, DP pulses 2 + BL SKIN: Bilateral bruising and bronzing of the shins. Flaky/frosty skin. Neuro: A&O x 3. No gross neurological deficits. Motor and sensory grossly intact in B/L UL and LL. Psych: Appropriate mood and affect Discharge Plan Plan Patient Disposition: HOME (Self Care) Patient condition on transfer: Stable Care Plan Goals: Discharge instructions: Follow-up with your primary care provider within 1 week from discharge, if you do not have a primary care provider you can book an appointment at the [facility]: [address] [place] [id number] Use medications as prescribed, it is very important to use your medications as instructed to prevent worsening of your condition Follow-up with a meat counter clerk within 1 to 2 weeks from discharge Follow-up with a marketing data specialist within 1 week from discharge, continue your hemodialysis as per schedule In case of worsening of your symptoms please return to the ED as soon as possible Prescriptions/Referrals Prescriptions/Med Rec: [place] 0.8 mg tablet 1 tab PO QDAY Qty: 30 0RF valsartan 40 mg tablet 40 mg PO BID Qty: 60 0RF bumetanide 1 mg tablet 1 mg PO QDAY Qty: 14 0RF carvedilol 6.25 mg tablet 6.25 mg PO BID 10 Days Qty: 20 0RF Rx Instructions: must administer with a meal/food nifedipine 60 mg tablet extended release 60 mg PO QDAY 10 Days Qty: 10 0RF Trelegy Ellipta 100-62.5-25 mcg blister with device 1 inh inhalation QDAY Qty: 28 0RF sevelamer carbonate 800 mg tablet 800 mg PO TID 30 Days Qty: 90 0RF Rx Instructions: Take one tablet by mouth three times a day Discontinued furosemide 20 mg tablet 20 mg PO .qod Referrals: Alton Vera MD [Primary Care Provider] - Patient/Caregiver Discharge Instructions Discharge Activity: as per physical therapy and activity as tolerated Education Materials: Hemodialysis, Understanding Methamphetamine ..., Treating Drug Abuse and Addiction, ED Hemodialysis Print Language: Welsh Stand Alone Forms: Fern Award Info., Patient Portal Info Letter Discharge Order Discharge Orders: Discharge (Routine); Ordered 04/22/25 Ordered By: Steff Yang Quality Discharge Quality Measures VTE prophylaxis
--- NOTE | 2025-04-22 16:17 | PC.NURSE ---
MD Mcgovern on the floor per MD give bp medication and dc pt. Transportation set up for pt and demands to go stephanie with snack. Snack given bp continues to be elevated.
--- NOTE | 2025-04-22 16:18 | PC.SS ---
Foot Drill Operator (REGLA) Rosemary informed by Dr. Maharaj that patient was medically clear and ready for discharge. SW was notified by PTCheyenne that patient would need a rollator upon discharge. SW notified PT and Dr. Maharaj that patient obtained a FWW in January of 2025; therefore, she does not qualify for a walker. SW met with patient [id number] to discuss discharge plan. Patient appeared irritable and her behavior was agitated. Patient reported that she was hoping to go into a convalescent home or senior care facility. SW informed patient that PT did not recommend physical therapy at a SNF. Patient became upset and said, The doctor said I would discharge tomorrow. SW explained that Dr. Maharaj placed discharge orders. Patient became upset and said, Where am I supposed to go? SW explained that there were a few shelters in the community. SW explained [facility], [facility]; patient reported that she was removed from both programs due to not following the rules. Every program that SW provided; patient declined. Ultimately, patient requested to return to previous address on initial assessment. Patient declined community resources. Patient declined bus pass. Patient refused meal. SW provided clean clothes. Patient provided with [employer] to transport to desired address.
--- NOTE | 2025-04-22 16:30 | PD.NEPHPROG ---
Documentation for date of: 04/22/25 Subjective Subjective Interval history: Ms. Freed is a 69-year-old female with a past medical history of end-stage renal disease (cardiorenal syndrome) on hemodialysis Thursday and , hypertension, CHF, history of breast cancer s/p rt resection, COPD, methamphetamine abuse disorder was admitted to [facility] with weakness and requesting dialysis. Apparently patient has been skipping a lot of dialysis sessions due to being homeless and unable to be picked by transport drivers. She was discharged to her boyfriend's home. However patient became homeless as boyfriend was not able to take care of her and she presented to the emergency department with shortness of breath. Renal consultation was requested for need for dialysis. Patient currently being dialyzed twice weekly at the [facility] dialysis unit via right IJ PermCath. WBC 8.7, hemoglobin 12.2, platelets 207. Sodium 142, potassium 3.2, BUN 51, creatinine 3.7, GFR 13, calcium 8.0, magnesium 1.2, AST 132, ALT 85, alk phos 133, BNP greater than 3280, troponin 0.1 chest x-ray showed moderate vascular congestion. Patient currently seen on dialysis. 04/22/2025 patient resting comfortably. Denies any chest pain, shortness of breath. Possible discharge today. No need for extra dialysis. Emphasized compliance in the outpatient setting. Review of Systems Review of Systems Narrative Review of Systems: CONSTITUTIONAL: Patient denies any fever, chills. Complaining of fatigue HEENT: Denies any visual disturbances or hearing problems. CARDIOVASCULAR: Patient denies any chest pain. no shortness of breath, swelling in the lower extremities. PULMONARY: Patient denied any shortness of breath, cough. GASTROINTESTINAL: Patient denies any abdominal pain, constipation, nausea, vomiting, diarrhea. GENITOURINARY: Patient denies any urinary symptoms of burning or frequency or hematuria, denies any form in the urine. SKIN: Denies any rash. MUSCULOSKELETAL: Denies any muscular skeletal problems NEUROLOGICAL: Denies any neurological problems of strokes, seizures or confusion. Denies any memory problems. PSYCHIATRIC: Denies any depression or anxiety. LYMPHATICS : No lymphadenopathy Exam Vital Signs Temp Pulse Resp BP Pulse Ox O2 Del Method O2 Flow Rate 36.1 C 100 27 H 168/101 H 97 Room Air 1 04/22/25 16:00 04/22/25 16:12 04/22/25 16:00 04/22/25 16:12 04/22/25 16:00 04/22/25 16:00 04/21/25 18:09 Narrative Exam GENERAL APPEARANCE: Patient currently seen in telemetry. NECK: Neck supple, no JVD or bruit CARDIOVASCULAR: Heart regular, no murmurs LUNGS/CHEST: Decreased breath sounds bilaterally ABDOMEN: Soft, nontender, nondistended. No masses. Normal bowel sounds. EXTREMITIES: 1+ edema in the lower extremities SKIN: Skin exam normal without any rashes . Right IJ PermCath MUSCULOSKELETAL: in bed, able to move her extremities PSYCHIATRIC: Normal mood, affect LYMPHATICS: No lymphadenopathy noted NEUROLOGICAL : No neurological deficits Objective Labs 04/22/25 05:40 04/22/25 05:40 Labs: Laboratory Results - last 24 hr 04/21/25 04/22/25 19:32 05:40 WBC 6.6 RBC 4.03 Hgb 12.7 Hct 38.3 MCV 95 MCH 31.5 MCHC 33.2 RDW Std Deviation 48.8 H Plt Count 200 Neut % (Auto) 83 H Lymph % (Auto) 9 L [place] % (Auto) 7 Eos % (Auto) 0 Baso % (Auto) 1 Neut # (Auto) 5.4 Lymph # (Auto) 0.6 L [place] # (Auto) 0.5 Eos # (Auto) 0.0 Baso # (Auto) 0.1 Immature Gran # (Auto) 0.03 H Absolute Nucleated RBC 0.00 Immature Gran % 1 H Nucleated RBC % 0 PT 12.4 H INR 1.1 APTT 26.0 Sodium 141 Potassium 4.0 D Chloride 105 Carbon Dioxide 23.9 Anion Gap 12 BUN 38 H Creatinine 3.1 H D Estim Creat Clear Calc 13.8 L eGFR 15 L BUN/Creatinine Ratio 12 Glucose 141 H Calculated Osmolality 292 Calcium 8.4 Corrected Calcium 8.6 Phosphorus 3.9 Magnesium 1.9 Total Bilirubin 0.3 AST 46 H ALT 58 H Alkaline Phosphatase 129 H Troponin I 0.070 H* 0.062 H* Total Protein 6.3 Albumin 3.8 Globulin 2.5 Albumin/Globulin Ratio 1.5 ABG Interpretation ABG results: 04/21/25 11:48 VBG pH 7.35 VBG pCO2 34 L VBG pO2 64 H VBG Base Excess -6 L Assessment & Plan Additional Assessment & Plan Additional Plan: Johana Fered is a 69-year-old female with PMHx of HFrEF (EF 30 to 35%, 06/2024),ESRD, COPD, hypertension, breast cancer status post bilateral mastectomy, and history of methamphetamine use who was admitted for management of decompensated CHF exacerbation and hypertension. Nephrology consulted for need for dialysis #ESRD due to cardiorenal syndrome type 2 Continue with diuretics, fluid restriction. Next dialysis Thursday #Hypertension On carvedilol, nifedipine, losartan-however patient lost all her medications. # decompensated heart failure - HFrEF--currently on dialysis #History of COPD Requesting albuterol inhaler #Cirrhosis secondary to alcoholism # h/o Polysubstance abuse History of methamphetamine abuse Patient can be discharged if she has a home situation fixed. Thank you Alisia for allowing me to participate in the care of Ms. Freed
== END 2025-04-22 16:25 | disposition home or self-care (01) | DRG 640 ==
LOC: SERX 13:49 → SERHOLD 14:36 → S2NX 18:14
PROVIDERS: Admitting Provider Internal Medicine; Emergency Provider Family Medicine; PCP Family Medicine; Visit Provider Internal Medicine
DX: E87.70 Fluid overload, unspecified (principal); J96.21 Acute and chronic respiratory failure with hypoxia; N18.6 End stage renal disease; I13.2 Hypertensive heart and chronic kidney disease with heart failure and with stage 5 chronic kidney disease, or end stage renal disease; I16.1 Hypertensive emergency; I50.22 Chronic systolic (congestive) heart failure; Z59.00 Homelessness unspecified; Z91.158 Patient's noncompliance with renal dialysis for other reason; Z91.148 Patient's other noncompliance with medication regimen for other reason; F10.20 Alcohol dependence, uncomplicated; I49.3 Ventricular premature depolarization; K70.30 Alcoholic cirrhosis of liver without ascites; F15.90 Other stimulant use, unspecified, uncomplicated; F17.210 Nicotine dependence, cigarettes, uncomplicated; Z79.899 Other long term (current) drug therapy; Z90.13 Acquired absence of bilateral breasts and nipples; Z85.3 Personal history of malignant neoplasm of breast; Z99.2 Dependence on renal dialysis
CPT/HCPCS: 36415; 71045; 80053; 80307; 81001; 82803; 83605; 83735; 83880; 84100; 84484; 85025; 85610; 85730; 87081; 93005; 94640; 96374; 96375; 97162; 99284; A9270; J0360; J1643; J1644; J1938; J2919; J3475; J7030

== ENCOUNTER 2025-07-12 09:03 | Emergency (ER) | payer MEDICARE, MEDICAID, SELFPAY ==
[2025-07-12] VITALS (7 sets, daily range): BP systolic 198–223; BP diastolic 107–145; PULSE 80–91; RESP 20; TEMP 36.4–37.1; O2SAT 96–100; BMI 22.1
--- NOTE | 2025-07-12 09:42 | XR_ITS ---
EXAMINATION: AP chest single view TECHNIQUE: AP portable upright chest single view Date and time: July 12, 2025, 1011 hours, comparison April 21, 2025 INDICATIONS: Chest pain today. FINDINGS: Mild prominence of left ventricle Moderate vascular congestion. Breast implants obscure detail in the lower lung zones Right internal jugular dialysis catheter tip right atrium Prominent osteopenia IMPRESSION: Mild heart failure
--- NOTE | 2025-07-12 09:42 | EKG_ITS ---
[facility] Test Date: 2025-07-12 Pat Name: CHEMA DIAZ Department: Room: - Gender: Female Customer Support Agent: : [id number] Requested By: Debi Castro Order Number: [id number] Reading MD: Debi Castro Measurements Intervals [place] Rate: 89 P: 45 CT: 153 QRS: -20 QRSD: 98 T: 116 QT: 384 QTc: 469 Interpretive Statements SINUS RHYTHM WITH OCCASIONAL SUPRAVENTRICULAR PREMATURE COMPLEXES POSSIBLE LEFT ATRIAL ENLARGEMENT [-0.1mV P-WAVE IN V1/V2] LEFT VENTRICULAR HYPERTROPHY AND ST-T CHANGE [VOLTAGE CRITERIA PLUS ST/T ABNORMALITY] Compared to ECG 04/21/2025 11:22:41 Sinus tachycardia no longer present ST (T wave) deviation still present /store/S0/[id number]/ecg/[id number].pdf
[2025-07-12] MEDS: hydrALAZINE INJ 20 MG/ML VIAL 10 MG IVP (10:03)
--- NOTE | 2025-07-12 10:18 | PD.EDSOB ---
ED SOB =RME/HPI General Chief Complaint: Shortness of Breath/Dyspnea Stated Complaint: SOB Time Seen by Provider: 07/12/25 09:41 Arrival date/time: 07/12/25 09:03 RME / HPI RME / HPI Narrative: 69 year old female with history of CHF (EF 45-50% 10/2024), hypertension, ESRD on HD Tuesdays and Fridays, COPD, breast cancer s/p resection presents to the ED BIBA for evaluation of shortness of breath beginning 2 days ago and worsening today. Described feeling she is not able to get a full breath with no known modifying factors at home. Patient reports missing her dialysis treatment Thursday though did get dialyzed last Thursday. Denies fevers, chills, sweats, chest pain, abdominal pain, n/v/d. Related Data Previous Rx's ?Medication ?Instructions ?Recorded bumetanide 1 mg tablet 1 mg PO QDAY #14 tabs 04/22/25 fluticasone fur. 100 mcg-umeclid 1 inh inhalation QDAY #28 ea 04/22/25 62.5 mcg-vilant 25 mcg inhalat.powder (Trelegy Ellipta) valsartan 40 mg tablet 40 mg PO BID #60 tabs 04/22/25 vitamin B complex-vitamin C-folic 1 tab PO QDAY #30 tabs 04/22/25 acid 0.8 mg tablet (Gabby-Cora) Allergies Allergy/AdvReac Type Severity Reaction Status Date / Time iodine Allergy Severe Rash Verified 04/21/25 09:28 Review of Systems Review of Systems Systems Reviewed: All systems reviewed, normal except as documented Past Medical History Past Medical History CARDIAC: Positive Cardiac Disorders, Hypercholesterolemia, Congestive Heart Failure, Edema and Hypertension RESPIRATORY: Positive Chronic Obstructive Pulmonary Disease (COPD), Bronchitis and Pneumonia GASTROINTESTINAL: Positive Gastrointestinal Disorders, Gastrointestinal Bleed and Ulcer GENITOURINARY: Positive Genitourinary Disorders, Renal Disease and Dialysis REPRODUCTIVE: Positive Breast Cancer and Previous Pregnancies MUSCULOSKELETAL: Positive Musculoskeletal Disorders and Arthritis HEMATOLOGIC: Positive Blood Disorders and Anemia PSYCHO/SOCIAL: Positive Recreational Drug Use, Depression, Anxiety and Post Traumatic Stress Disorder OTHER HISTORY: Positive Cosmetic Surgery (breast cancer surgery cosmetic. ), Falls, Blood Transfusions, Chicken Pox, Cancer and Breast Cancer Family History FAMILY HISTORY: Positive Family Gastrointestinal Problems and Family Cancer Surgical History SURGICAL: Positive Mastectomy, Lumpectomy and Section Social History SMOKING STATUS: Light (< 1 pack/day) SECOND HAND EXPOSURE: No ED Exam Narrative Physical exam: GENERAL APPEARANCE: alert and oriented x 4, well-developed, well-nourished, no acute distress HEENT: Normocephalic, atraumatic; pupils equal, round, reactive to light; EOMI; mucous membranes pink, moist; oropharynx clear NECK: Supple LUNGS: CTABL; no wheezes, no rales, no rhonchi HEART: Regular rate, regular rhythm; normal S1, S2; no murmurs ABDOMEN: non distended; normal BS; soft, no tenderness, no guarding, no rebound; no masses, no organomegaly, no hernia BACK: no CVA tenderness EXTREMITIES: atraumatic; no edema NEUROLOGIC: awake; alert and oriented x4; cranial nerves II-XII grossly intact; no focal sensory or motor deficits PSYCHIATRIC: appropriate mood and affect SKIN: warm, dry, normal color; no rashes Course Quality Measures none Orders Category Date Time Status Water Softener Servicer NOW Care 07/12/25 09:42 Completed EKG (ED ONLY) *Do not use* NOW Care 07/12/25 09:42 Completed EKG (ED Only) Stat Exams 07/12/25 09:42 Draft XR chest 1V portable Stat Exams 07/12/25 09:42 Completed B-Type Natriuretic Peptide Stat Lab 07/12/25 10:46 Completed CBC Stat Lab 07/12/25 10:46 Completed Comprehensive Metabolic Panel Stat Lab 07/12/25 10:46 Completed Lipase Stat Lab 07/12/25 10:46 Completed Magnesium Stat Lab 07/12/25 10:46 Completed Partial Thromboplastin Time Stat Lab 07/12/25 10:46 Completed Prothrombin Time with INR Stat Lab 07/12/25 10:46 Completed Troponin I Stat Lab 07/12/25 10:46 Completed UA, C/S IF [Urinalysis, C/S if Indicated] Stat Lab 07/12/25 11:55 Completed cloNIDine HCL [Catapres] Med 07/12/25 12:53 Discontinued 0.2 mg PO X1 ONE hydrALAZINE INJ [Apresoline Inj] Med 07/12/25 09:42 Discontinued 10 mg IVP X1 ONE Vital Signs Vital signs: Vital Signs Temperature 97.5 F 07/12/25 09:07 Pulse Rate 81 07/12/25 09:07 Respiratory Rate 20 07/12/25 09:07 Blood Pressure 217/145 H 07/12/25 09:07 Pulse Oximetry (%) 96 07/12/25 09:07 Oxygen Delivery Method Room Air 07/12/25 09:07 Pulse ox is 96% on room air which is adequate. Shortness of Breath / Dyspnea MDM Narrative MDM Narrative:: Shira Wylie am scribing for and in the presence of Dr. Broussard. Patient data External records reviewed:: [facility] previous records and EMS form Clinical information provided by:: patient and EMS Social determinants that could affect healthcare access:: none Patient has the following chronic illnesses:: CHF (EF 45-50% 10/2024), hypertension, ESRD on HD Tuesdays and Fridays, COPD, breast cancer s/p resection How is presenting disease/condition affected by chronic disease/condition?: exacerbated by Evaluation data The following diagnostics were reviewed and interpreted by me:: EKG tracing(s) (EKG @ 10:00 AM. Normal sinus rhythm, rate 89, left ventricular hypertrophy, no STEMI. ) Lab and/or radiology exams considered but not ordered:: None Interpretation Summary: Ordering Physician: Debi Broussard MD Date of Service: 07/12/25 Procedure(s): XR chest 1V portable Accession Number(s): [id number] cc: Hugo Thomas MD; Panfilo Vasquez MD; Debi Broussard MD~ EXAMINATION: AP chest single view TECHNIQUE: AP portable upright chest single view Date and time: July 12, 2025, 1011 hours, comparison April 21, 2025 INDICATIONS: Chest pain today. FINDINGS: Mild prominence of left ventricle Moderate vascular congestion. Breast implants obscure detail in the lower lung zones Right internal jugular dialysis catheter tip right atrium Prominent osteopenia IMPRESSION: Mild heart failure Dictated By: Panfilo Vasquez MD Signed By: <Electronically signed by Panfilo Vasquez MD in OV> 07/12/25 1039 Medications / Prescriptions Medications or Prescriptions considered but not ordered:: None Medication administrations:: Medication Administration History Discontinued Medications Clonidine (Clonidine Hcl 0.1 Mg Tablet) 0.2 mg PO X1 ONE Stop: 07/12/25 12:54 Last Admin: 07/12/25 13:12 Dose: 0.2 mg Documented By: APRIL Hydralazine HCl (Hydralazine Inj 20 Mg/Ml Vial) 10 mg IVP X1 ONE Stop: 07/12/25 09:43 Last Admin: 07/12/25 10:03 Dose: 10 mg Documented By: DAVID See above Consultations Consultation(s) initiated? (list below): Yes Consultation #1 (Physician, Specialty, Details): I spoke with patients charge out clerk Dr. Pulido who advised the patient go to the dialysis center to be dialyzed. Diagnosis Shortness of Breath Differential Diagnosis: acute exacerbation of chronic obstructive airways disease, congestive heart failure and community acquired pneumonia Most likely diagnosis given after review of the tests above:: ESRD on HD Shortness of breath Admission Indicated Admission indicated?: not indicated Admission Request Was there a request for admission?: No Disposition Plan Disposition Plan: Discharge Discharge Attestation Discharge Attestation: The patient and all family members were given an opportunity to ask questions and understood the discharge instructions. Discharge instructions specifically effects, indications for sooner follow up or return to the emergency department, and the expected course of current diagnosis. Patient condition: Stable Discharge Plan Plan Patient Disposition: HOME (Self Care) Prescriptions/Referrals Prescriptions/Med Rec: No Action Gabby-Cora 0.8 mg tablet 1 tab PO QDAY Qty: 30 0RF valsartan 40 mg tablet 40 mg PO BID Qty: 60 0RF bumetanide 1 mg tablet 1 mg PO QDAY Qty: 14 0RF Trelegy Ellipta 100-62.5-25 mcg blister with device 1 inh inhalation QDAY Qty: 28 0RF Referrals: Hugo Thomas MD [Primary Care Provider, Family Practice] - In 1 week Problem List Clinical Impression: ESRD on hemodialysis, Shortness of breath Patient/Caregiver Discharge Instructions Education Materials: ED Shortness of Breath (Dyspnea) Additional Instructions: Go directly to the dialysis center for dialysis Print Language: Japanese Stand Alone Forms: Fern Award Info., Patient Portal Info Letter
[2025-07-12 10:59] LABS: Basophils # (Auto) 0.1 Thou/mm3 (0.0-0.2); Basophils % (Auto) 1 % (0-2.5); Eosinophils # (Auto) 0.1 Thou/mm3 (0.0-0.5); Eosinophils % (Auto) 1 % (0-10); Hematocrit 35.7 % (36.0-46.0); Hemoglobin 12.0 g/dL (12.0-16.0); Immature Granulocytes Auto 0.03 Thou/mm3 (0.00-0.00); Lymphocytes # (Auto) 0.8 Thou/mm3 (1.0-4.8); Lymphocytes % (Auto) 8 % (10-50); Mean Corpuscular HGB Conc 33.6 g/dl (31.0-37.0); Mean Corpuscular Hemoglobin 32.9 pg (25.0-35.0); Mean Corpuscular Volume 98 fL (80-100); Monocytes # (Auto) 0.6 Thou/mm3 (0.0-0.8); Monocytes % (Auto) 6 % (0-12); Neutrophils # (Auto) 8.0 Thou/mm3 (1.8-7.7); Neutrophils % (Auto) 84 % (37-80); Nucleated Red Blood Cell # 0.00 Thou/mm3 (0.00-0.00); Nucleated Red Blood Cell % 0 /100 WBC (0); Platelet Count 238 Thou/mm3 (140-440); RDW Standard Deviation 51.8 fL (36.4-46.3); Red Blood Count 3.65 Miln/mm3 (4.00-5.20); White Blood Count 9.6 Thou/mm3 (3.6-11.0)
[2025-07-12 11:11] LABS: INR 1.2 (0.9-1.3); Partial Thromboplastin Time 29.2 Seconds (22.0-36.0); Prothrombin Time 12.4 Seconds (9.0-12.2)
[2025-07-12 11:44] LABS: Alanine Aminotransferase 81 U/L (10-49); Albumin, Serum 4.0 gm/dL (3.4-4.8); Albumin/Globulin Ratio 1.7 (1.2-2.2); Alkaline Phosphatase 142 U/L (46-116); Anion Gap 16 (7-16); Aspartate Amino Transferase 74 U/L (0-34); BUN/Creatinine Ratio 12 Ratio (12-20); Bilirubin,Total 0.5 mg/dL (0.3-1.2); Blood Urea Nitrogen 57 mg/dL (9-23); Calcium 8.2 mg/dL (8.3-10.6); Calcium (Corrected) 8.2 mg/dL (8.5-10.1); Carbon Dioxide 21.0 mMol/L (20.0-31.0); Chloride 107 mMol/L (98-107); Creatinine (Component) 4.7 mg/dL (0.6-1.3); Estimated Creatinine Clearance 9.1 mL/min (>60); Globulin 2.3 gm/dL (2.3-3.5); Glucose 104 mg/dL (74-106); Lipase 28 U/L (12-53); Magnesium 1.9 mg/dL (1.6-2.6); Osmolality,Calculated 302 (275-295); Potassium 3.3 mMol/L (3.4-5.1); Sodium 144 mMol/L (136-145); Total Protein 6.3 gm/dL (5.7-8.2); eGFR 9 See Note
[2025-07-12 11:54] LABS: Troponin I 0.098 ng/mL (0.0-0.045)
[2025-07-12 11:58] LABS: B-Type Natriuretic Peptide > 3280 pg/mL (0-100)
[2025-07-12 12:08] LABS: Collection Type, Urine Clean Catch
[2025-07-12 12:23] LABS: Bacteria,Urine Rare; Bilirubin,Urine Negative (Negative); Blood,Urine 1+ (Negative); Clarity,Urine Clear (Clear/Hazy); Color,Urine Lt-Yellow (Lt Yel-Yel); Culture Indicated,Urine Not Indicated; Glucose, Urine 1+ (Negative); Ketones,Urine Negative (Negative); Leukocyte Esterase,Urine Negative (Negative); Nitrite,Urine Negative (Negative); PH,Urine 7.0 (5.0-7.0); Protein,Urine 2+ (Neg - Trace); RBC,Urine 9 /hpf (0-3); Specific Gravity,Urine 1.013 (1.001-1.035); Squamous Epithelial Cell,Urine < 1 /hpf (0-5); Urobilinogen,Urine Negative mg/dL (0.0-1.0); WBC,Urine 1 /hpf (0-5)
--- NOTE | 2025-07-12 13:15 | PC.NURSE ---
PT GIVEN WATER AND SANDWICH. OKAY PER PROVIDER.
--- NOTE | 2025-07-12 13:51 | PC.SS ---
This ELECTRICAL CAD TECHNICIAN internet sales representative confirmed with Dr. Broussard and nurse Mackey patient is medically cleared for DC. This ELECTRICAL CAD TECHNICIAN internet sales representative made contact with patient and her significant other Jonh who was at bedside. This ELECTRICAL CAD TECHNICIAN internet sales representative confirmed and was able to make transportation arrangements with [facility] transportation. Patient will be picked up front lobby at 1425. This ELECTRICAL CAD TECHNICIAN internet sales representative called [facility] spoke with Reshma to confirm patient will still have dialysis chair available. 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
== END 2025-07-12 14:04 | disposition home or self-care (01) ==
PROVIDERS: Emergency Provider Emergency Medicine; PCP Family Medicine
DX: I13.2 Hypertensive heart and chronic kidney disease with heart failure and with stage 5 chronic kidney disease, or end stage renal disease (principal); J44.9 Chronic obstructive pulmonary disease, unspecified; N18.6 End stage renal disease; Z99.2 Dependence on renal dialysis
CPT/HCPCS: 36415; 71045; 80053; 81001; 83690; 83735; 83880; 84484; 85025; 85610; 85730; 93005; 96374; 99285; J0360; A9270

== ENCOUNTER 2025-07-23 15:20 | Emergency (ER) | payer MEDICARE, MEDICAID, SELFPAY ==
[2025-07-23 15:25] VITALS: BP 171/110; PULSE 80; RESP 18; TEMP 36.9; O2SAT 95; BMI 23.3
[2025-07-23 15:27] VITALS: PULSE 102; O2SAT 97
--- NOTE | 2025-07-23 15:30 | PD.EDSOB ---
ED SOB =RME/HPI General Chief Complaint: Shortness of Breath/Dyspnea Stated Complaint: SOB Time Seen by Provider: 07/23/25 15:31 Arrival date/time: 07/23/25 15:20 RME / HPI RME / HPI Narrative: DR. BROUSSARD MAIN ED EVALUATION: 69-year-old female with a past medical history of end-stage renal disease (cardiorenal syndrome) on hemodialysis (Mondays and ), hypertension, CHF, COPD, history of right breast cancer status post resection, and methamphetamine abuse disorder presents to the Emergency Department for shortness of breath. The patient is on home oxygen at baseline and reports worsening dyspnea today. No other symptoms reported at this time. Related Data Previous Rx's ?Medication ?Instructions ?Recorded bumetanide 1 mg tablet 1 mg PO QDAY #14 tabs 04/22/25 fluticasone fur. 100 mcg-umeclid 1 inh inhalation QDAY #28 ea 04/22/25 62.5 mcg-vilant 25 mcg inhalat.powder (Trelegy Ellipta) valsartan 40 mg tablet 40 mg PO BID #60 tabs 04/22/25 vitamin B complex-vitamin C-folic 1 tab PO QDAY #30 tabs 04/22/25 acid 0.8 mg tablet (Gabby-Cora) Allergies Allergy/AdvReac Type Severity Reaction Status Date / Time iodine Allergy Severe Rash Verified 07/23/25 15:26 Review of Systems Review of Systems Systems Reviewed: All systems reviewed, normal except as documented Past Medical History Past Medical History CARDIAC: Positive Cardiac Disorders, Hypercholesterolemia, Congestive Heart Failure, Edema and Hypertension RESPIRATORY: Positive Chronic Obstructive Pulmonary Disease (COPD), Bronchitis and Pneumonia GASTROINTESTINAL: Positive Gastrointestinal Disorders, Gastrointestinal Bleed and Ulcer GENITOURINARY: Positive Genitourinary Disorders, Renal Disease and Dialysis REPRODUCTIVE: Positive Breast Cancer and Previous Pregnancies MUSCULOSKELETAL: Positive Musculoskeletal Disorders and Arthritis HEMATOLOGIC: Positive Blood Disorders and Anemia PSYCHO/SOCIAL: Positive Recreational Drug Use, Depression, Anxiety and Post Traumatic Stress Disorder OTHER HISTORY: Positive Cosmetic Surgery (breast cancer surgery cosmetic. ), Falls, Blood Transfusions, Chicken Pox, Cancer and Breast Cancer Family History FAMILY HISTORY: Positive Family Gastrointestinal Problems and Family Cancer Surgical History SURGICAL: Positive Mastectomy, Lumpectomy and Section Social History SMOKING STATUS: Light (< 1 pack/day) SECOND HAND EXPOSURE: No ED Exam Narrative Physical exam: GENERAL APPEARANCE: alert and oriented x 4, well-developed, well-nourished, tachypneic but moving air adequately VITALS: All vitals were reviewed and the pulse ox is 95% on 2 L/min via a nasal cannula. HEENT: Normocephalic, atraumatic; pupils equal, round, reactive to light; EOMI; mucous membranes pink, moist; oropharynx clear NECK: Supple LUNGS: tachypneic but moving air adequately; otherwise lungs are clear HEART: Regular rate, regular rhythm; normal S1, S2; no murmurs ABDOMEN: non distended; normal BS; soft, no tenderness, no guarding, no rebound; no masses, no organomegaly, no hernia BACK: no CVA tenderness EXTREMITIES: atraumatic; no edema NEUROLOGIC: awake; alert and oriented x4; cranial nerves II-XII grossly intact; no focal sensory or motor deficits PSYCHIATRIC: appropriate mood and affect SKIN: warm, dry, normal color; no rashes Course Quality Measures none Orders Category Date Time Status Jewelry Appraiser NOW Care 07/23/25 15:31 Completed EKG (ED ONLY) *Do not use* NOW Care 07/23/25 15:31 Completed Insert IV NOW Care 07/23/25 15:47 Completed EKG (ED Only) Stat Exams 07/23/25 15:31 Draft XR chest 1V portable Stat Exams 07/23/25 15:31 Completed B-Type Natriuretic Peptide Stat Lab 07/23/25 15:50 Completed CBC Stat Lab 07/23/25 15:50 Completed Comprehensive Metabolic Panel Stat Lab 07/23/25 15:50 Completed Lipase Stat Lab 07/23/25 15:50 Completed Magnesium Stat Lab 07/23/25 15:50 Completed Partial Thromboplastin Time Stat Lab 07/23/25 15:50 Completed Prothrombin Time with INR Stat Lab 07/23/25 15:50 Completed Troponin I Stat Lab 07/23/25 15:50 Completed NIFEdipine [Procardia Xl] Med 07/23/25 15:39 Discontinued 30 mg PO X1 ONE carVEDILOL [Coreg] Med 07/23/25 15:39 Discontinued 6.25 mg PO X1 ONE Vital Signs Vital signs: Vital Signs Temperature 98.5 F 07/23/25 15:25 Pulse Rate 80 07/23/25 15:25 Respiratory Rate 18 07/23/25 15:25 Blood Pressure 171/110 H 07/23/25 15:25 Pulse Oximetry (%) 95 07/23/25 15:25 Oxygen Delivery Method Nasal Cannula 07/23/25 15:25 Oxygen Flow Rate 2 07/23/25 15:25 Shortness of Breath / Dyspnea MDM Narrative MDM Narrative:: Eleanor Wylie am scribing for and in the presence of Dr. Broussard. Patient data External records reviewed:: [facility] previous records Clinical information provided by:: patient Social determinants that could affect healthcare access:: none Patient has the following chronic illnesses:: History of end-stage renal disease (cardiorenal syndrome) on hemodialysis (Mondays and ), hypertension, CHF, COPD, history of right breast cancer status post resection, and methamphetamine abuse disorder; on home oxygen at baseline. How is presenting disease/condition affected by chronic disease/condition?: exacerbated by Evaluation data The following diagnostics were reviewed and interpreted by me:: lab results, radiology exam(s) and EKG tracing(s) (My interpretation: EKG performed at 1545 hours, sinus rhythm, rate 82, Q wave in V1, slight ST elevation in AVR, T wave inversion in lead 1, ST depression in V5-6 ) Lab and/or radiology exams considered but not ordered:: none Interpretation Summary: [facility] [address] [place] [address] [employer]eler[employer] Preliminary Report Draft Patient: CHEMA DIAZ. Record#: [id number] Birthdate: 1955 Age/Sex: 69 / F Location: [facility] Attending Dr: Ordering Physician: Date of Service: Procedure(s): Accession Number(s): cc: ~ Radiograph of the chest (single view). July 23, 2025 1657 hours Clinical history: chest pain Comparison: No prior study is available for comparison. Findings: There is a dialysis catheter in the right anterior chest wall with its tip in the cavoatrial junction. The aorta is ectatic with atheromatous calcification of the aortic arch. There is mild cardiomegaly. The lungs are clear. There is no pleural effusion. The bony thorax is unremarkable. Surgical clips are noted. Impression: No focal consolidation or pleural effusion. Mild cardiomegaly. Report Electronically Signed By: Felix Denton 07/23/2025 4:56:16 PM [EST] Dictated By: Signed By: DD/ 1608 TD/TT: 07/23/25 1656 Enlisted Aircrew/Aerial Observer/Gunner: Medications / Prescriptions Medications or Prescriptions considered but not ordered:: none Medication administrations:: Medication Administration History Discontinued Medications Carvedilol (Carvedilol 3.125 Mg Tablet) 6.25 mg PO X1 ONE Stop: 07/23/25 15:40 Last Admin: 07/23/25 16:11 Dose: 6.25 mg Documented By: BD Nifedipine (Nifedipine Xl 30 Mg Tabcr) 30 mg PO X1 ONE Stop: 07/23/25 15:40 Last Admin: 07/23/25 16:11 Dose: 30 mg Documented By: BD see above if any Consultations Consultation(s) initiated? (list below): No Diagnosis Shortness of Breath Differential Diagnosis: other (COPD exacerbation, fluid overload secondary to ESRD, and CHF exacerbation.) Most likely diagnosis given after review of the tests above:: Dyspnea Admission Indicated Admission indicated?: not indicated Admission Request Was there a request for admission?: No Disposition Plan Disposition Plan: Discharge Discharge Attestation Discharge Attestation: The patient and all family members were given an opportunity to ask questions and understood the discharge instructions. Discharge instructions specifically effects, indications for sooner follow up or return to the emergency department, and the expected course of current diagnosis. Patient condition: Stable Discharge Plan Plan Patient Disposition: HOME (Self Care) Prescriptions/Referrals Prescriptions/Med Rec: No Action Gabby-Cora 0.8 mg tablet 1 tab PO QDAY Qty: 30 0RF valsartan 40 mg tablet 40 mg PO BID Qty: 60 0RF bumetanide 1 mg tablet 1 mg PO QDAY Qty: 14 0RF Trelegy Ellipta 100-62.5-25 mcg blister with device 1 inh inhalation QDAY Qty: 28 0RF Referrals: Reji Sommer PA-C [Primary Care Provider] - In 1 week Problem List Clinical Impression: Dyspnea Patient/Caregiver Discharge Instructions Education Materials: ED Shortness of Breath (Dyspnea) Print Language: Salvadorean Stand Alone Forms: Fern Award Info., Patient Portal Info Letter
--- NOTE | 2025-07-23 15:31 | XR_ITS ---
EXAMINATION: AP chest single view TECHNIQUE: Sitting portable AP chest single view Date and time: July 23, 2025, 1657 hours, comparison July 12, 2025 INDICATIONS: Chest pain today. FINDINGS: Mild to moderate CHF Moderate enlargement cardiac contour. Prominent vascular congestion. Perihilar basilar edema. Right internal jugular dialysis catheter tip satisfactory position Prominent osteopenia IMPRESSION: Mild to moderate CHF
--- NOTE | 2025-07-23 15:31 | EKG_ITS ---
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
[2025-07-23 15:48] VITALS: PULSE 88
[2025-07-23 15:56] LABS: Basophils # (Auto) 0.1 Thou/mm3 (0.0-0.2); Basophils % (Auto) 1 % (0-2.5); Eosinophils # (Auto) 0.1 Thou/mm3 (0.0-0.5); Eosinophils % (Auto) 2 % (0-10); Hematocrit 35.8 % (36.0-46.0); Hemoglobin 11.8 g/dL (12.0-16.0); Immature Granulocytes Auto 0.02 Thou/mm3 (0.00-0.00); Lymphocytes # (Auto) 1.3 Thou/mm3 (1.0-4.8); Lymphocytes % (Auto) 16 % (10-50); Mean Corpuscular HGB Conc 33.0 g/dl (31.0-37.0); Mean Corpuscular Hemoglobin 32.6 pg (25.0-35.0); Mean Corpuscular Volume 99 fL (80-100); Monocytes # (Auto) 0.6 Thou/mm3 (0.0-0.8); Monocytes % (Auto) 7 % (0-12); Neutrophils # (Auto) 6.0 Thou/mm3 (1.8-7.7); Neutrophils % (Auto) 75 % (37-80); Nucleated Red Blood Cell # 0.00 Thou/mm3 (0.00-0.00); Nucleated Red Blood Cell % 0 /100 WBC (0); Platelet Count 258 Thou/mm3 (140-440); RDW Standard Deviation 52.5 fL (36.4-46.3); Red Blood Count 3.62 Miln/mm3 (4.00-5.20); White Blood Count 8.0 Thou/mm3 (3.6-11.0)
[2025-07-23 16:11] VITALS: BP 186/133; PULSE 86
[2025-07-23] MEDS: NIFEdipine XL 30 MG TABCR PO (16:11)
[2025-07-23 16:20] LABS: B-Type Natriuretic Peptide > 3280 pg/mL (0-100)
[2025-07-23 16:24] LABS: Alanine Aminotransferase 192 U/L (10-49); Albumin, Serum 4.1 gm/dL (3.4-4.8); Albumin/Globulin Ratio 1.9 (1.2-2.2); Alkaline Phosphatase 168 U/L (46-116); Anion Gap 14 (7-16); Aspartate Amino Transferase 194 U/L (0-34); BUN/Creatinine Ratio 13 Ratio (12-20); Bilirubin,Total 0.6 mg/dL (0.3-1.2); Blood Urea Nitrogen 48 mg/dL (9-23); Calcium 8.5 mg/dL (8.3-10.6); Calcium (Corrected) 8.5 mg/dL (8.5-10.1); Carbon Dioxide 24.7 mMol/L (20.0-31.0); Chloride 104 mMol/L (98-107); Creatinine (Component) 3.8 mg/dL (0.6-1.3); Estimated Creatinine Clearance 11.7 mL/min (>60); Globulin 2.2 gm/dL (2.3-3.5); Glucose 114 mg/dL (74-106); Lipase 29 U/L (12-53); Magnesium 1.9 mg/dL (1.6-2.6); Osmolality,Calculated 298 (275-295); Potassium 4.0 mMol/L (3.4-5.1); Sodium 143 mMol/L (136-145); Total Protein 6.3 gm/dL (5.7-8.2); eGFR 12 See Note
[2025-07-23 16:28] LABS: Troponin I 0.096 ng/mL (0.0-0.045)
[2025-07-23 16:33] LABS: INR 1.1 (0.9-1.3); Partial Thromboplastin Time 26.8 Seconds (22.0-36.0); Prothrombin Time 11.9 Seconds (9.0-12.2)
--- NOTE | 2025-07-23 16:57 | PRELIM_ITS ---
Radiograph of the chest (single view). July 23, 2025 1657 hours Clinical history: chest pain Comparison: No prior study is available for comparison. Findings: There is a dialysis catheter in the right anterior chest wall with its tip in the cavoatrial junction. The aorta is ectatic with atheromatous calcification of the aortic arch. There is mild cardiomegaly. The lungs are clear. There is no pleural effusion. The bony thorax is unremarkable. Surgical clips are noted. Impression: No focal consolidation or pleural effusion. Mild cardiomegaly. Report Electronically Signed By: Felix Denton 07/23/2025 4:56:16 PM [EST]
[2025-07-23 17:32] VITALS: BP 152/96; PULSE 81; TEMP 36.9; O2SAT 92
[2025-07-23 18:23] VITALS: BP 171/117; PULSE 79; RESP 18; TEMP 36.5; O2SAT 93
== END 2025-07-23 18:43 | disposition home or self-care (01) ==
PROVIDERS: Emergency Provider Emergency Medicine; PCP Physician Assistant Medical
DX: R06.00 Dyspnea, unspecified (principal); I13.2 Hypertensive heart and chronic kidney disease with heart failure and with stage 5 chronic kidney disease, or end stage renal disease; J44.9 Chronic obstructive pulmonary disease, unspecified; N18.6 End stage renal disease; Z99.2 Dependence on renal dialysis
CPT/HCPCS: 36415; 71045; 80053; 83690; 83735; 83880; 84484; 85025; 85610; 85730; 93005; 99283; A9270

== ENCOUNTER 2025-07-28 21:16 | Emergency (ER) | payer MEDICARE, MEDICAID, SELFPAY ==
[2025-07-28 21:18] VITALS: PULSE 84; RESP 20; O2SAT 95
[2025-07-28 21:21] VITALS: BMI 21.4
[2025-07-28 21:49] VITALS: BP 174/115; PULSE 75; RESP 14; TEMP 37; O2SAT 99
--- NOTE | 2025-07-28 22:55 | PC.NURSE ---
PER PATIENT IF I AM NOT GOING TO BE ADMITTED I DONT WANT TO STAY. . THIS RN INFORMED PATIENT PROVIDER ORDERED TESTING. PER PATIENT I DONT WANT ANY BLOOD WORK OR IV DONE. . THIS RN INFORMED PROVIDER PT REFUSING LABS AND BLOOD WORK.
--- NOTE | 2025-07-28 23:00 | XR_ITS ---
EXAMINATION: AP chest single view TECHNIQUE: AP portable upright chest single view Date and time: July 28, 2025, 2044 hours INDICATIONS: Shortness of breath chest pain today. FINDINGS: Moderate enlargement left ventricle Prominent vascular congestion. Early pulmonary edema Right internal jugular dialysis catheter tip satisfactory position IMPRESSION: Mild CHF
--- NOTE | 2025-07-28 23:04 | PD.EDSOB ---
ED SOB =RME/HPI General Chief Complaint: Shortness of Breath/Dyspnea Stated Complaint: SOB Time Seen by Provider: 07/29/25 06:24 Arrival date/time: 07/28/25 21:16 RME / HPI RME / HPI Narrative: DR. HIGGINBOTHAM MAIN ED EVALUATION: Patient presents with progressing shortness of breath x 1 month's duration. No definitive fever or chills, but reports intermittent cough. Notes no relief with Proventil at home. No vomiting or diarrhea. PMH: CHF, COPD, ESRD on Dialysis, Hypercholesterolemia, Edema, Hypertension, Gastrointestinal Bleed, Ulcer, Breast Cancer, Arthritis, Anemia, Recreational Drug Use, Depression, Anxiety and Post Traumatic Stress Disorder PSH: Non-Contributory Allergies: None Reported Social: No Alcoholism, Does Report Occasional Methamphetamine Abuse Related Data Previous Rx's ?Medication ?Instructions ?Recorded bumetanide 1 mg tablet 1 mg PO QDAY #14 tabs 04/22/25 fluticasone fur. 100 mcg-umeclid 1 inh inhalation QDAY #28 ea 04/22/25 62.5 mcg-vilant 25 mcg inhalat.powder (Trelegy Ellipta) valsartan 40 mg tablet 40 mg PO BID #60 tabs 04/22/25 vitamin B complex-vitamin C-folic 1 tab PO QDAY #30 tabs 04/22/25 acid 0.8 mg tablet (Gabby-Cora) Allergies Allergy/AdvReac Type Severity Reaction Status Date / Time iodine Allergy Severe Rash Verified 07/28/25 21:18 Review of Systems Review of Systems Systems Reviewed: All systems reviewed, normal except as documented Past Medical History Past Medical History CARDIAC: Positive Cardiac Disorders, Hypercholesterolemia, Congestive Heart Failure, Edema and Hypertension RESPIRATORY: Positive Chronic Obstructive Pulmonary Disease (COPD), Bronchitis and Pneumonia GASTROINTESTINAL: Positive Gastrointestinal Disorders, Gastrointestinal Bleed and Ulcer GENITOURINARY: Positive Renal Disease and Dialysis REPRODUCTIVE: Positive Breast Cancer and Previous Pregnancies MUSCULOSKELETAL: Positive Arthritis HEMATOLOGIC: Positive Blood Disorders and Anemia PSYCHO/SOCIAL: Positive Recreational Drug Use, Depression, Anxiety and Post Traumatic Stress Disorder OTHER HISTORY: Positive Blood Transfusions, Chicken Pox, Cancer and Breast Cancer Family History FAMILY HISTORY: Positive Family Gastrointestinal Problems and Family Cancer Surgical History SURGICAL: Positive Mastectomy, Lumpectomy and Section Social History SMOKING STATUS: Light (< 1 pack/day) SUBSTANCE USE: methamphetamine ED Exam Narrative Physical exam: GEN. APPEARANCE: The patient is alert awake oriented X-3 under mild respiratory distress, lying down comfortably, does not look ill/toxic. Patient has good eye contact. Patient is cooperative. VITALS: All vitals were reviewed and the pulse ox is 99%, which is normal according to my interpretation HEENT: Normocephalic, atraumatic and nontender. Pupils are equal and reactive. Oral mucosa is moist. NECK: Supple, nontender, no meningismus, positive JVD. There is no thyromegaly and no lymphadenopathy. CHEST: Nontender on palpation no deformity and no crepitus. CARDIOVASCULAR: Heart regular rhythm, no murmur or gallop rub or extra beats. LUNGS: Clear to auscultation bilaterally with symmetrical chest rise. No laboring tachypnea or wheezing. No intercostal subcostal retraction. No rales and no rhonchi. ABDOMEN: Soft, flat, nontender to palpation, no guarding or rebound tenderness. There are no abnormal masses palpated. No pulsatile masses or bruits. Active and normal bowel sounds. EXTREMITIES: Normal inspection and palpation. No peripheral edema. No cyanosis. Patient is able to move all 4 extremities well SKIN: Warm and dry, no rashes noted. MUSCULOSKELETAL: No lumbar or midline bony tenderness. There is no CVA tenderness. No paraspinal muscle spasm or tenderness. NEURO: Cranial nerves II through XII grossly intact. There are no focal neurologic deficits noted. GCS is 15 PSYCHIATRIC: Patient is in normal mood and affect, cooperative. LYMPHATICS: No major lymphadenopathy noted. 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 Care 07/28/25 23:00 Completed Continuous Pulse Oximetry ONCE Care 07/28/25 23:00 Completed Dialysis [Hemodialysis] Urgent Care 07/29/25 07:30 Active EKG (ED ONLY) *Do not use* NOW Care 07/28/25 23:00 Completed Insert IV STAT Care 07/28/25 23:00 Completed Intake and Output Routine Care 07/28/25 23:00 Ordered Diet Renal Diet 07/29/25 Breakfast Active EKG (ED Only) Stat Exams 07/28/25 23:00 Ordered XR chest 1V portable Stat Exams 07/28/25 23:00 Completed B-Type Natriuretic Peptide Stat Lab 07/28/25 23:01 Completed CBC Stat Lab 07/28/25 23:01 Completed Comprehensive Metabolic Panel Stat Lab 07/28/25 23:00 Completed Lipase Stat Lab 07/28/25 23:00 Completed Magnesium Stat Lab 07/28/25 23:00 Completed Troponin I Stat Lab 07/28/25 23:00 Completed Urinalysis, C/S if Indicated Stat Lab 07/29/25 03:30 Completed Albumin Human-Kjda 25% Ivpb [Albuminex 25% Ivpb] Med 07/29/25 07:31 Discontinued 25 gm in 100 ml IV Q30MIN Aspirin Chew Med 07/28/25 22:59 Discontinued 324 mg PO X1 ONE Diazepam Inj [Valium Inj] Med 07/29/25 03:20 Discontinued 5 mg IVP X1 ONE Epoetin Kaden-Epbx Inj [Retacrit Inj] Med 07/29/25 07:45 Discontinued 10,000 unit SC X1 ONE Furosemide Inj [Lasix Inj] Med 07/29/25 03:14 Discontinued 40 mg IVP X1 ONE Heparin* 1000 UNITS/ML- 10 ML [Heparin 1000 UNITS/ML- Med 07/29/25 08:38 Discontinued 10 ML] 3,800 unit INDWELLCAT PRN PRN Nitroglycerin Oint 2% [Nitro-paste Oint 2%] Med 07/28/25 22:59 Discontinued 1 inch TOP X1 ONE Ondansetron Inj [Zofran Inj] Med 07/28/25 22:59 Discontinued 4 mg IVP Q1HR PRN cloNIDine HCL [Catapres] Med 07/29/25 12:37 Discontinued 0.3 mg PO X1 ONE hydrALAZINE INJ [Apresoline Inj] Med 07/29/25 00:51 Discontinued 10 mg IVP X1 ONE hydrALAZINE INJ [Apresoline Inj] Med 07/29/25 01:35 Discontinued 20 mg IVP X1 ONE Oxygen Delivery NOW RT 07/28/25 23:00 Completed Vital Signs Vital signs: Vital Signs Temperature 98.6 F 07/28/25 21:49 Pulse Rate 75 07/28/25 21:49 Respiratory Rate 14 07/28/25 21:49 Blood Pressure 174/115 H 07/28/25 21:49 Pulse Oximetry (%) 99 07/28/25 21:49 Oxygen Delivery Method Room Air 07/28/25 21:49 Shortness of Breath / Dyspnea MDM Narrative MDM Narrative:: Scribe Attestation: I, Lexie Cespedes, am scribing for and in the presence of Dr. Dorado. Provider Notation: Although this document has been carefully reviewed, there may still be some phonetic and other typographical errors. These errors are purely grammatical due to imperfections in the software program and should not be construed in any way to compromise the substance of the patient's medical care during this visit. Patient presents with progressing shortness of breath x 1 month's duration. No definitive fever or chills, but reports intermittent cough. Please see PE findings. Further inquiry indicates patient had missed dialysis on Thursday and next appointment would be on Thursday. Patient was placed on manager cardiac, markedly hypertensive requiring incremental doses of anti-hypertensive medication with BP stabilizing. Laboratory markers including CBC and serum chemistries demonstrate essentially normal CBC. Serum chemistries demonstrated a creatinine at baseline of 3.7. Troponin I marginally elevated at 0.06, and BNP marginally elevated at 679. Lipase increased to 80. CXR demonstrated cardiomegally with prominent CHF and early pulmonary edema. EKG without acute ischemia, infarct, or pericarditis. On seral evaluation, patient resting comfortably, BP stabilized and without signs of respiratory distress. Will attempt to dialyze this morning and will likely discharge home. Final diagnosis is acute pulmonary edema. Patient data External records reviewed:: [facility] previous records (Reviewed prior ED records from 07/23/25. Patient was seen for Dyspnea.) and EMS form Clinical information provided by:: patient and EMS Social determinants that could affect healthcare access:: substance use (Methamphetamine) Patient has the following chronic illnesses:: Hypercholesterolemia, Congestive Heart Failure, Edema, Hypertension, Chronic Obstructive Pulmonary Disease, Gastrointestinal Bleed, Ulcer, Renal Disease and Dialysis, Breast Cancer, Arthritis, Anemia, Recreational Drug Use, Depression, Anxiety and Post Traumatic Stress Disorder How is presenting disease/condition affected by chronic disease/condition?: exacerbated by Evaluation data The following diagnostics were reviewed and interpreted by me:: lab results, radiology exam(s) and EKG tracing(s) (EKG without acute ischemia, infarct, or pericarditis, per my interpretation.) Lab and/or radiology exams considered but not ordered:: None Interpretation Summary: RADIOLOGY Chest X-Ray: FINDINGS: Moderate enlargement left ventricle Prominent vascular congestion. Early pulmonary edema Right internal jugular dialysis catheter tip satisfactory position IMPRESSION: Mild CHF Medications / Prescriptions Medications or Prescriptions considered but not ordered:: None Medication administrations:: Medication Administration History Discontinued Medications Aspirin (Aspirin 81 Mg Chew) 324 mg PO X1 ONE Stop: 07/28/25 23:00 Last Admin: 07/28/25 23:11 Dose: 324 mg Documented By: DT Clonidine (Clonidine Hcl 0.1 Mg Tablet) 0.3 mg PO X1 ONE Stop: 07/29/25 12:38 Last Admin: 07/29/25 12:42 Dose: 0.3 mg Documented By: APRIL Diazepam (Diazepam Inj 5 Mg/Ml Vial 2 Ml) 5 mg IVP X1 ONE Stop: 07/29/25 03:21 Last Admin: 07/29/25 03:31 Dose: 5 mg Documented By: AM Epoetin Kaden (Epoetin Kaden-Epbx Inj 10,000 Unit/Ml Vial (Non-Esrd)) 10,000 unit SC X1 ONE Stop: 07/29/25 07:46 Furosemide (Furosemide Inj 10 Mg/Ml 4ml Vial) 40 mg IVP X1 ONE Stop: 07/29/25 03:15 Last Admin: 07/29/25 03:32 Dose: 40 mg Documented By: AM Heparin Sodium (Porcine) (Heparin Sod Inj 1000 Unit/Ml Vial 10 Ml) 3,800 unit INDWELLCAT PRN PRN PRN Reason: DIALYSIS Stop: 08/12/25 08:37 Hydralazine HCl (Hydralazine Inj 20 Mg/Ml Vial) 10 mg IVP X1 ONE Stop: 07/29/25 00:52 Last Admin: 07/29/25 01:02 Dose: 10 mg Documented By: DT Hydralazine HCl (Hydralazine Inj 20 Mg/Ml Vial) 20 mg IVP X1 ONE Stop: 07/29/25 01:36 Last Admin: 07/29/25 01:47 Dose: 20 mg Documented By: DT Albumin Human (Albuminex 25% Ivpb) 25 gm in 100 mls @ 100 mls/min IV Q30MIN PRN PRN Reason: DIALYSIS Nitroglycerin (Nitroglycerin Oint 2% 1 Inch Packet) 1 inch TOP X1 ONE Stop: 07/28/25 23:00 Last Admin: 07/28/25 23:12 Dose: 1 inch Documented By: JEM Ondansetron HCl (Ondansetron Inj 2 Mg/Ml Inj 2 Ml) 4 mg IVP Q1HR PRN PRN Reason: PERSISTENT NAUSEA OR VOMITING See above if any Consultations Consultation(s) initiated? (list below): No Diagnosis Shortness of Breath Differential Diagnosis: acute exacerbation of chronic obstructive airways disease, congestive heart failure, community acquired pneumonia and pulmonary embolism Most likely diagnosis given after review of the tests above:: Acute pulmonary edema Admission Indicated Admission indicated?: not indicated Explain why admission is indicated or not indicated:: Patient does not meet admission criteria Admission Request Was there a request for admission?: No Disposition Plan Disposition Plan: Discharge (Following dialysis) Discharge Attestation Discharge Attestation: The patient and all family members were given an opportunity to ask questions and understood the discharge instructions. Discharge instructions specifically effects, indications for sooner follow up or return to the emergency department, and the expected course of current diagnosis. Patient condition: Stable Discharge Plan Plan Patient Disposition: HOME (Self Care) Discharge Disposition comment: stable Prescriptions/Referrals Prescriptions/Med Rec: No Action Gabby-Cora 0.8 mg tablet 1 tab PO QDAY Qty: 30 0RF valsartan 40 mg tablet 40 mg PO BID Qty: 60 0RF bumetanide 1 mg tablet 1 mg PO QDAY Qty: 14 0RF Trelegy Ellipta 100-62.5-25 mcg blister with device 1 inh inhalation QDAY Qty: 28 0RF Referrals: Hugo Thomas MD [Primary Care Provider, Family Practice] - In 1 week Problem List Clinical Impression: Acute pulmonary edema, Accelerated hypertension Impression comment: Acute pulmonary edema/accelerated hypertension Patient/Caregiver Discharge Instructions Discharge Activity: activity as tolerated Print Language: Sammarinese Stand Alone Forms: Fern Award Info., Patient Portal Info Letter
[2025-07-28] MEDS: ASPIRIN 81 MG CHEW 324 MG PO (23:11)
[2025-07-28 23:12] VITALS: BP 189/120; PULSE 73
[2025-07-28] MEDS: NITROGLYCERIN OINT 2% 1 INCH PACKET TOP (23:12)
[2025-07-28 23:57] VITALS: BP 170/112; PULSE 85; RESP 14; TEMP 37; O2SAT 99
--- NOTE | 2025-07-28 23:57 | PC.NURSE ---
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 PER PATIENT I DONT WANT TO STAY HERE I WANT TO GO HOME. . PROVIDER AT BEDSIDE.
[2025-07-29] VITALS (24 sets, daily range): BP systolic 149–198; BP diastolic 85–127; PULSE 64–78; RESP 14–20; TEMP 36.2–37; O2SAT 94–99
[2025-07-29 00:23] LABS: Basophils # (Auto) 0.0 Thou/mm3 (0.0-0.2); Basophils % (Auto) 1 % (0-2.5); Eosinophils # (Auto) 0.2 Thou/mm3 (0.0-0.5); Eosinophils % (Auto) 3 % (0-10); Hematocrit 36.6 % (36.0-46.0); Hemoglobin 12.2 g/dL (12.0-16.0); Immature Granulocytes Auto 0.02 Thou/mm3 (0.00-0.00); Lymphocytes # (Auto) 1.4 Thou/mm3 (1.0-4.8); Lymphocytes % (Auto) 22 % (10-50); Mean Corpuscular HGB Conc 33.3 g/dl (31.0-37.0); Mean Corpuscular Hemoglobin 32.9 pg (25.0-35.0); Mean Corpuscular Volume 99 fL (80-100); Monocytes # (Auto) 0.4 Thou/mm3 (0.0-0.8); Monocytes % (Auto) 6 % (0-12); Neutrophils # (Auto) 4.3 Thou/mm3 (1.8-7.7); Neutrophils % (Auto) 69 % (37-80); Nucleated Red Blood Cell # 0.00 Thou/mm3 (0.00-0.00); Nucleated Red Blood Cell % 0 /100 WBC (0); Platelet Count 254 Thou/mm3 (140-440); RDW Standard Deviation 52.6 fL (36.4-46.3); Red Blood Count 3.71 Miln/mm3 (4.00-5.20); White Blood Count 6.3 Thou/mm3 (3.6-11.0)
[2025-07-29 00:49] LABS: B-Type Natriuretic Peptide 2679 pg/mL (0-100)
[2025-07-29 00:51] LABS: Alanine Aminotransferase 141 U/L (10-49); Albumin, Serum 4.3 gm/dL (3.4-4.8); Albumin/Globulin Ratio 2.0 (1.2-2.2); Alkaline Phosphatase 178 U/L (46-116); Anion Gap 12 (7-16); Aspartate Amino Transferase 89 U/L (0-34); BUN/Creatinine Ratio 19 Ratio (12-20); Bilirubin,Total 0.3 mg/dL (0.3-1.2); Blood Urea Nitrogen 69 mg/dL (9-23); Calcium 8.3 mg/dL (8.3-10.6); Calcium (Corrected) 8.3 mg/dL (8.5-10.1); Carbon Dioxide 26.1 mMol/L (20.0-31.0); Chloride 104 mMol/L (98-107); Creatinine (Component) 3.7 mg/dL (0.6-1.3); Estimated Creatinine Clearance 12.0 mL/min (>60); Globulin 2.1 gm/dL (2.3-3.5); Glucose 95 mg/dL (74-106); Lipase 80 U/L (12-53); Magnesium 1.9 mg/dL (1.6-2.6); Osmolality,Calculated 303 (275-295); Potassium 3.9 mMol/L (3.4-5.1); Sodium 142 mMol/L (136-145); Total Protein 6.4 gm/dL (5.7-8.2); Troponin I 0.065 ng/mL (0.0-0.045); eGFR 13 See Note
[2025-07-29] MEDS: hydrALAZINE INJ 20 MG/ML VIAL 10 MG IVP (01:02)
[2025-07-29] MEDS: hydrALAZINE INJ 20 MG/ML VIAL IVP (01:47)
[2025-07-29] MEDS: DIAZEPAM INJ 5 MG/ML VIAL 2 ML IVP (03:31)
[2025-07-29] MEDS: FUROSEMIDE INJ 10 MG/ML 4ML VIAL 40 MG IVP (03:32)
[2025-07-29 04:20] LABS: Collection Type, Urine Clean Catch
[2025-07-29 04:27] LABS: Bilirubin,Urine Negative (Negative); Blood,Urine Trace (Negative); Clarity,Urine Clear (Clear/Hazy); Color,Urine Lt-Yellow (Lt Yel-Yel); Culture Indicated,Urine Not Indicated; Glucose, Urine Trace (Negative); Ketones,Urine Negative (Negative); Leukocyte Esterase,Urine Negative (Negative); Nitrite,Urine Negative (Negative); PH,Urine 7.0 (5.0-7.0); Protein,Urine 2+ (Neg - Trace); RBC,Urine 4 /hpf (0-3); Specific Gravity,Urine 1.016 (1.001-1.035); Squamous Epithelial Cell,Urine 3 /hpf (0-5); Urobilinogen,Urine Negative mg/dL (0.0-1.0); WBC,Urine 2 /hpf (0-5)
--- NOTE | 2025-07-29 07:57 | PC.NURSE ---
pt taken to dialysis
--- NOTE | 2025-07-29 09:02 | PC.NURSE ---
BP ELEVATED PT DENIES ALL C/O CHEST PAIN,PRESSURE, DEE, SOD OR DISCOMFORT, UF GOAL INCREASED TO 3L TOLERATED WILL CONT. TO MONITOR
--- NOTE | 2025-07-29 10:09 | ESCONSULT_ITS ---
HPI Data of Consult Consult date: 07/29/25 Primary Care Provider: Hugo Thomas MD Consult Narrative Reason for consult: ESRD on HD History of present illness: Ms. Freed is a 69-year-old female with a past medical history of end-stage renal disease (cardiorenal syndrome) on hemodialysis Thursday and , hypertension, CHF, history of breast cancer s/p rt resection, COPD, methamphetamine abuse disorder presented to [facility] ED on 07/28 for SOB for one month, endorsing she missed HD last Thursday. Patient has hx of being non adherent to HD sessions. Patient kalen lives in senior living with three other members, good support per her. Nephrology consulted by ED for HD. Patient endorses SOB, but improved on HD. States that she has not been taking medication and has been missing HD sessions. Denies other symptoms such as chest pain, abdominal pain, or N/V. Patient is stable following HD and can be discharged from ED. cc:: cc: Review of Systems Review of Systems Systems Reviewed: All systems reviewed, normal except as documented Exam Vital Signs Temp Pulse Resp BP Pulse Ox O2 Del Method 97.1 F 70 20 166/93 H 96 Room Air 07/29/25 07:33 07/29/25 10:00 07/29/25 07:33 07/29/25 10:00 07/29/25 07:33 07/29/25 02:13 Narrative Exam GENERAL: AOx3, no acute distress HEENT: mucous membranes moist, bilateral sclera anicteric CARDIOVASCULAR: regular rate and rhythm, S1/S2 present, no murmurs appreciated, R IJ TDC in place PULMONARY: clear to auscultation bilaterally, no rales/rhonchi/wheezes ABDOMINAL: soft, non-tender, non-distended, no rebound/guarding, bowel sounds present EXTREMITIES: no peripheral edema SKIN: warm and dry, intact, no rashes NEURO: CN II-XII grossly intact, no focal deficits, alert, following commands Results Labs 07/29/25 00:16 07/29/25 00:16 Labs: Short CBC 07/29/25 Range/Units 00:16 WBC 6.3 (3.6-11.0) Thou/mm3 Hgb 12.2 (12.0-16.0) g/dL Hct 36.6 (36.0-46.0) % Plt Count 254 (140-440) Thou/mm3 BMP 07/29/25 00:16 Sodium 142 Potassium 3.9 Chloride 104 Carbon Dioxide 26.1 BUN 69 H Creatinine 3.7 H Glucose 95 Calcium 8.3 Cardiac Enzymes 07/29/25 Range/Units 00:16 Troponin I 0.065 H* (0.0-0.045) ng/mL Liver Function 07/29/25 Range/Units 00:16 Total Bilirubin 0.3 (0.3-1.2) mg/dL AST 89 H (0-34) U/L ALT 141 H (10-49) U/L Alkaline Phosphatase 178 H (46-116) U/L Albumin 4.3 (3.4-4.8) gm/dL Urine 07/29/25 Range/Units 03:30 Urine Color Lt-Yellow (Lt Yel-Yel) Urine Clarity Clear (Clear/Hazy) Urine pH 7.0 (5.0-7.0) Ur Specific [place] 1.016 (1.001-1.035) Urine Protein 2+ A (Neg - Trace) Urine Glucose (UA) Trace (Negative) Quality Measures Quality Measures none Advance care planning discussed with:: patient Medications Home Medications and Allergies Allergies Allergy/AdvReac Type Severity Reaction Status Date / Time iodine Allergy Severe Rash Verified 07/28/25 21:18 Visit Medications Heparin Sodium (Porcine) (Heparin Sod Inj 1000 Unit/Ml Vial 10 Ml) 3,800 unit INDWELLCAT PRN PRN PRN Reason: DIALYSIS Stop: 08/12/25 08:37 Albumin Human (Albuminex 25% Ivpb) 25 gm in 100 mls @ 100 mls/min IV Q30MIN PRN PRN Reason: DIALYSIS Ondansetron HCl (Ondansetron Inj 2 Mg/Ml Inj 2 Ml) 4 mg IVP Q1HR PRN PRN Reason: PERSISTENT NAUSEA OR VOMITING Discontinued Medications Aspirin (Aspirin 81 Mg Chew) 324 mg PO X1 ONE Stop: 07/28/25 23:00 Last Admin: 07/28/25 23:11 Dose: 324 mg Diazepam (Diazepam Inj 5 Mg/Ml Vial 2 Ml) 5 mg IVP X1 ONE Stop: 07/29/25 03:21 Last Admin: 07/29/25 03:31 Dose: 5 mg Epoetin Kaden (Epoetin Kaden-Epbx Inj 10,000 Unit/Ml Vial (Non-Esrd)) 10,000 unit SC X1 ONE Stop: 07/29/25 07:46 Furosemide (Furosemide Inj 10 Mg/Ml 4ml Vial) 40 mg IVP X1 ONE Stop: 07/29/25 03:15 Last Admin: 07/29/25 03:32 Dose: 40 mg Hydralazine HCl (Hydralazine Inj 20 Mg/Ml Vial) 10 mg IVP X1 ONE Stop: 07/29/25 00:52 Last Admin: 07/29/25 01:02 Dose: 10 mg Hydralazine HCl (Hydralazine Inj 20 Mg/Ml Vial) 20 mg IVP X1 ONE Stop: 07/29/25 01:36 Last Admin: 07/29/25 01:47 Dose: 20 mg Nitroglycerin (Nitroglycerin Oint 2% 1 Inch Packet) 1 inch TOP X1 ONE Stop: 07/28/25 23:00 Last Admin: 07/28/25 23:12 Dose: 1 inch Assessment & Plan Plan Johana Freed is a 69-year-old female with PMHx of HFrEF (EF 30 to 35%, 06/2024),ESRD, COPD, hypertension, breast cancer status post bilateral mastectomy, and history of methamphetamine use who presented to [facility] ED 07/28 for one month of SOB and missing last HD session with hx of noncompliance 2/2 homelessness. Nephrology consulted for ESRD on HD. #ESRD on HD through RIJ cath 2/ #Cardiorenal syndrome type 2 #HFrEF Presented with SOB for one month. Per chart review has missed multiple HD sessions in the past 2/2 homelessness and has frequent ED visits and admissions for emergent HD. On admission, K 3.9, BUN 69, Cr 3.7, trops 0.065, BNP 2679. Plan: - HD today - Extensive counseling to be adherent to HD schedule, will likely need 3x a week dialysis in the near future - Recommend adherence to medication schedule #Hypertension Patient states she is not adherent to medication. Recommend adherence. 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 Plan discussed with my attending Dr. Pulido. Fela Soriano, DO Internal Medicine PGY-1 Attending Provider Attestation/Addendum Patient seen and examined with resident physician Dr. Soriano. Note reviewed, agree with findings and recommendations. Patient currently seen on dialysis. Tolerating dialysis without any problems. Hemodialysis for 3 hours, 2K, ultrafiltration 2-3 L, Epogen 6000, no heparin ordered. Plan of care discussed with the dialysis nurse. Please see dialysis flowsheet for further details. Postdialysis the ER physician wants to discharge patient. Emphasized compliance.
== END 2025-07-29 12:57 | disposition home or self-care (01) ==
PROVIDERS: Emergency Medicine; Emergency Provider Emergency Medicine; PCP Family Medicine
DX: I13.2 Hypertensive heart and chronic kidney disease with heart failure and with stage 5 chronic kidney disease, or end stage renal disease (principal); M19.90 Unspecified osteoarthritis, unspecified site; N18.6 End stage renal disease; Z59.00 Homelessness unspecified; Z99.2 Dependence on renal dialysis; Z91.158 Patient's noncompliance with renal dialysis for other reason; E78.00 Pure hypercholesterolemia, unspecified; F10.10 Alcohol abuse, uncomplicated; I50.20 Unspecified systolic (congestive) heart failure; J44.9 Chronic obstructive pulmonary disease, unspecified
CPT/HCPCS: 90935; 36415; 71045; 80053; 81001; 83690; 83735; 83880; 84484; 85025; 93005; 96374; 96375; 96376; 99284; J0360; J1938; J3360; A9270; G0257

== ENCOUNTER 2025-08-12 14:26 | Emergency (ER) | payer MEDICARE, MEDICAID, SELFPAY ==
[2025-08-12 14:29] VITALS: PULSE 60; RESP 18; O2SAT 95; BMI 22.6
[2025-08-12 14:47] VITALS: BP 115/70; PULSE 72; RESP 19; TEMP 36.9; O2SAT 94
--- NOTE | 2025-08-12 15:07 | EKG_ITS ---
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1955 Requested By: Aida Merchant Order Number: [id number] Reading MD: Aida Merchant Measurements Intervals [place] Rate: 65 P: 65 TN: 158 QRS: -31 QRSD: 96 T: 144 QT: 489 QTc: 510 Interpretive Statements SINUS RHYTHM WITH OCCASIONAL SUPRAVENTRICULAR PREMATURE COMPLEXES POSSIBLE RIGHT ATRIAL ENLARGEMENT [0.25mV P-WAVE] LEFT ATRIAL ENLARGEMENT [-0.15mV P-WAVE IN V1/V2] LEFT AXIS DEVIATION [QRS AXIS < -30] LEFT VENTRICULAR HYPERTROPHY AND ST-T CHANGE [VOLTAGE CRITERIA PLUS ST/T ABNORMALITY] Compared to ECG 07/29/2025 03:32:51 Atrial abnormality now present ST (T wave) deviation still present /store/S0/[id number]
--- NOTE | 2025-08-12 15:07 | XR_ITS ---
Examination: CT abdomen and pelvis without contrast. Coronal 3-D reconstructions. Sagittal 2-D reconstructions. Date and time of exam: August 12, 2025, 1603 hours INDICATIONS: Onset lower abdominal pain today CTDI: vol (mGy): 5.06 DLP: (mGycm): 230 Technique: Axial images of the abdomen have been obtained, 3 mm slice thickness Intravenous contrast material has not been administered. Low dose protocols were performed. One or more of the following dose reduction techniques were used; automated exposure control, adjustment of the mA and/or KV according to patient size, use of iterative reconstruction technique. Findings: No focal liver or splenic lesions No gallstones No pancreatic mass pancreatic calcifications are present Moderate renal scar formation 2 mm nonobstructing left renal calculus Heavy abdominal aortic calcification Abundant stool in the colon Normal appendix Mildly fluid distended small bowel loops Abundant stool in the rectum No pelvic mass Contracted urinary bladder IMPRESSION: 2 mm nonobstructing left renal calculus Small bowel ileus versus mild enteritis
--- NOTE | 2025-08-12 15:09 | PD.EDABDPN ---
ED Abdominal Pain RME/HPI General Chief Complaint: Abdominal Pain Stated complaint: ABDOMINAL PAIN Time seen by provider: 08/12/25 15:02 Arrival date/time: 08/12/25 14:26 69-year-old female patient with significant history of COPD, hypertension, ESRD, on hemodialysis last hemodialysis yesterday, came in for evaluation regarding sudden onset of lower abdominal pain. Onset of symptoms several hours prior to ER visit after eating sandwich. Patient told me that he had diarrhea last night. Patient denies any dysuria denies any fever denies any vomiting denies any nausea. Patient denies any other complaints no medication was taken prior to ER visit. Related Data Previous Rx's ?Medication ?Instructions ?Recorded bumetanide 1 mg tablet 1 mg PO QDAY #14 tabs 04/22/25 fluticasone fur. 100 mcg-umeclid 1 inh inhalation QDAY #28 ea 04/22/25 62.5 mcg-vilant 25 mcg inhalat.powder (Trelegy Ellipta) valsartan 40 mg tablet 40 mg PO BID #60 tabs 04/22/25 vitamin B complex-vitamin C-folic 1 tab PO QDAY #30 tabs 04/22/25 acid 0.8 mg tablet (Gabby-Cora) dicyclomine 20 mg tablet 20 mg PO QID PRN abdominal pain 08/12/25 #30 tabs Allergies Allergy/AdvReac Type Severity Reaction Status Date / Time iodine Allergy Severe Rash Verified 07/28/25 21:18 Review of Systems Review of Systems Narrative Review of Systems: Review of system reviewed and within normal limits except mentioned in HPI ED Exam Narrative Physical exam: VITAL SIGNS: Reviewed. GENERAL APPEARANCE: Alert and interactive, follows commands, no acute distress, HEAD AND FACE: Non-traumatic. ENT: PERRL, pink conjunctivitis, eyelid no trauma, Mucous membrane moist. NECK: Supple, nontender, no nuchal rigidity. CHEST: No tenderness, no crepitus, no paradoxical movement, no retractions. LUNGS: Clear, well ventilated, symmetric, no rales, no wheezing, no ronchi, no stridor, good breath sounds bilaterally. HEART: Regular rate, regular rhythm, no murmur, no gallops. ABDOMEN: Soft, positive bowel sounds, nondistended, no guarding, lower abdominal tenderness, no rebound, no masses, RECTAL: Deferred. GENITAL: Deferred. NEUROLOGICAL: Gross motor function intact sensory function intact, Appropriate for age. MUSCULOSKELETAL: low back nontender, full range of motion. EXTREMITIES: Nontender, full range of motion. SKIN: Color pink, dry, no rash, no lacerations, no abrasions, no contusions. LYMPHATICS: Deferred. Course Quality Measures none Orders Category Date Time Status Wax Pumper Q4H START 00 Care 08/12/25 14:46 Active EKG (ED ONLY) *Do not use* NOW Care 08/12/25 15:07 Completed Insert IV NOW Care 08/12/25 16:[address] abdomen pelvis wo con Stat Exams 08/12/25 15:07 Completed EKG (ED Only) Stat Exams 08/12/25 15:07 Draft CBC Stat Lab 08/12/25 15:46 Completed Comprehensive Metabolic Panel Stat Lab 08/12/25 15:46 Completed Lactate (Lactic Acid) Stat Lab 08/12/25 15:46 Completed Lactic Acid, 3 HR Stat Lab 08/12/25 19:09 Completed Partial Thromboplastin Time Stat Lab 08/12/25 15:46 Completed Procalcitonin Stat Lab 08/12/25 15:46 Completed Troponin I Stat Lab 08/12/25 15:46 Completed Troponin I Stat Lab 08/12/25 17:50 Completed UA, C/S IF [Urinalysis, C/S if Indicated] Stat Lab 08/12/25 17:52 Completed Morphine* Inj Med 08/12/25 15:08 Discontinued 4 mg IVP X1 ONE Ondansetron Inj [Zofran Inj] Med 08/12/25 15:07 Discontinued 4 mg IVP X1 ONE Ringers Lactated 500 ml [Lactated Ringers] 500 ml Med 08/12/25 16:40 Discontinued IV 999 mls/hr Vital Signs Vital signs: Vital Signs Temperature 98.5 F 08/12/25 14:47 Pulse Rate 72 08/12/25 14:47 Respiratory Rate 19 08/12/25 14:47 Blood Pressure 115/70 08/12/25 14:47 Pulse Oximetry (%) 94 L 08/12/25 14:47 Oxygen Delivery Method Room Air 08/12/25 14:47 Abdominal Pain MDM MDM Narrative MDM Narrative:: 69-year-old female patient with significant history of COPD, hypertension, ESRD, on hemodialysis last hemodialysis yesterday, came in for evaluation regarding sudden onset of lower abdominal pain. Onset of symptoms several hours prior to ER visit after eating sandwich. Patient told me that he had diarrhea last night. Patient denies any dysuria denies any fever denies any vomiting denies any nausea. Patient denies any other complaints no medication was taken prior to ER visit. EKG shows sinus rhythm, ventricular rate of 65 bpm, no ST segment elevation depression noted. Patient's workup today came back with troponin of 0.066, after triage repeat troponin went down to 0.064. Patient had chronic elevation of troponin also. The rest of the labs no UTI CMP chronic kidney disease potassium normal CT scan of the abdomen and pelvis showed mm nonobstructing left renal calculus Small bowel ileus versus mild enteritis Patient is telling me that her abdominal pain is totally gone. She is eating sandwich and crackers in the ED. Drinking with no recurrence of symptoms. Patient stable for charged home Patient data External records reviewed:: None Clinical information provided by:: patient Social determinants that could affect healthcare access:: none Patient has the following chronic illnesses:: ESRD, congestive heart failure COPD hypertension How is presenting disease/condition affected by chronic disease/condition?: exacerbated by Evaluation data The following diagnostics were reviewed and interpreted by me:: lab results, radiology exam(s) and EKG tracing(s) Lab and/or radiology exams considered but not ordered:: None Interpretation Summary: See above Medications / Prescriptions Medications or Prescriptions considered but not ordered:: None Medication administrations:: Medication Administration History Discontinued Medications Lactated Ringer's (Lactated Ringers) 500 mls @ 999 mls/hr IV .Q31M ONE Stop: 08/12/25 17:10 Last Infusion: 08/12/25 17:36 Dose: Infused Documented By: Admin: 08/12/25 17:00 Dose: 999 mls/hr Documented By: BD Morphine Sulfate (Morphine Sulf Inj 4 Mg/Ml Vial) 4 mg IVP X1 ONE Stop: 08/12/25 15:09 Last Admin: 08/12/25 16:57 Dose: 4 mg Documented By: BD Ondansetron HCl (Ondansetron Inj 2 Mg/Ml Inj 2 Ml) 4 mg IVP X1 ONE; Protocol Stop: 08/12/25 15:08 Last Admin: 08/12/25 16:57 Dose: 4 mg Documented By: BD IV fluids, morphine Zofran Consultations Consultation(s) initiated? (list below): No Diagnosis Differential diagnosis abdominal pain: abdominal pain, constipation, diverticulitis and small bowel obstruction Most likely diagnosis given after review of the tests above:: Abdominal pain, resolved Admission Indicated Admission indicated?: not indicated Admission Request Was there a request for admission?: No Disposition Plan Disposition Plan: Discharge Discharge Attestation Discharge Attestation: The patient was given an opportunity to ask questions and understood the discharge instructions. Discharge instructions specifically effects, indications for sooner follow up or return to the emergency department, and the expected course of current diagnosis. Patient condition: Stable Discharge Plan Plan Patient Disposition: HOME (Self Care) Discharge Disposition comment: stable Prescriptions/Referrals Prescriptions/Med Rec: New dicyclomine 20 mg tablet 20 mg PO QID PRN (Reason: abdominal pain) Qty: 30 0RF No Action Gabby-Cora 0.8 mg tablet 1 tab PO QDAY Qty: 30 0RF valsartan 40 mg tablet 40 mg PO BID Qty: 60 0RF bumetanide 1 mg tablet 1 mg PO QDAY Qty: 14 0RF Trelegy Ellipta 100-62.5-25 mcg blister with device 1 inh inhalation QDAY Qty: 28 0RF Referrals: Hugo Thomas MD [Primary Care Provider, Family Practice] - In 1 week Problem List Clinical Impression: Abdominal pain, End-stage renal disease (ESRD) Patient/Caregiver Discharge Instructions Discharge Activity: activity as tolerated Education Materials: Abdominal Pain Additional Instructions: Thank you for the opportunity for serving you today. You are stable for discharged . You are advised to: Follow-up with your PCP in 1 to 2 days Return to ED for worsening of symptoms Print Language: Slovenian Stand Alone Forms: Fern Award Info., Patient Portal Info Letter PA/JANNET Supervising Physician MYKE/JANNET Supervising Physician: MD Estrada
[2025-08-12 15:54] LABS: Lactate (Lactic Acid) 2.9 mMol/L (0.4-2.0)
[2025-08-12 15:56] LABS: Basophils # (Auto) 0.1 Thou/mm3 (0.0-0.2); Basophils % (Auto) 1 % (0-2.5); Eosinophils # (Auto) 0.1 Thou/mm3 (0.0-0.5); Eosinophils % (Auto) 2 % (0-10); Hematocrit 44.7 % (36.0-46.0); Hemoglobin 14.9 g/dL (12.0-16.0); Immature Granulocytes Auto 0.02 Thou/mm3 (0.00-0.00); Lymphocytes # (Auto) 1.0 Thou/mm3 (1.0-4.8); Lymphocytes % (Auto) 12 % (10-50); Mean Corpuscular HGB Conc 33.3 g/dl (31.0-37.0); Mean Corpuscular Hemoglobin 32.4 pg (25.0-35.0); Mean Corpuscular Volume 97 fL (80-100); Monocytes # (Auto) 0.6 Thou/mm3 (0.0-0.8); Monocytes % (Auto) 7 % (0-12); Neutrophils # (Auto) 6.8 Thou/mm3 (1.8-7.7); Neutrophils % (Auto) 79 % (37-80); Nucleated Red Blood Cell # 0.00 Thou/mm3 (0.00-0.00); Nucleated Red Blood Cell % 0 /100 WBC (0); Platelet Count 272 Thou/mm3 (140-440); RDW Standard Deviation 53.7 fL (36.4-46.3); Red Blood Count 4.60 Miln/mm3 (4.00-5.20); White Blood Count 8.6 Thou/mm3 (3.6-11.0)
[2025-08-12 16:17] VITALS: BP 129/69; PULSE 65; RESP 12; TEMP 36.9; O2SAT 93
[2025-08-12 16:25] LABS: Alanine Aminotransferase 33 U/L (10-49); Albumin, Serum 4.5 gm/dL (3.4-4.8); Albumin/Globulin Ratio 1.6 (1.2-2.2); Alkaline Phosphatase 125 U/L (46-116); Anion Gap 12 (7-16); Aspartate Amino Transferase 20 U/L (0-34); BUN/Creatinine Ratio 11 Ratio (12-20); Bilirubin,Total 0.4 mg/dL (0.3-1.2); Blood Urea Nitrogen 40 mg/dL (9-23); Calcium 9.0 mg/dL (8.3-10.6); Calcium (Corrected) 9.0 mg/dL (8.5-10.1); Carbon Dioxide 27.6 mMol/L (20.0-31.0); Chloride 105 mMol/L (98-107); Creatinine (Component) 3.7 mg/dL (0.6-1.3); Estimated Creatinine Clearance 11.5 mL/min (>60); Globulin 2.8 gm/dL (2.3-3.5); Glucose 124 mg/dL (74-106); Osmolality,Calculated 299 (275-295); Potassium 4.6 mMol/L (3.4-5.1); Procalcitonin 0.31 ng/ml (0.0-0.49); Sodium 145 mMol/L (136-145); Total Protein 7.3 gm/dL (5.7-8.2); eGFR 13 See Note
[2025-08-12 16:29] LABS: Partial Thromboplastin Time 26.2 Seconds (22.0-36.0)
[2025-08-12 16:31] LABS: Troponin I 0.066 ng/mL (0.0-0.045)
[2025-08-12] MEDS: MORPHINE SULF INJ 4 MG/ML VIAL IVP (16:57)
[2025-08-12] MEDS: ONDANSETRON INJ 2 MG/ML INJ 2 ML 4 MG IVP (16:57)
[2025-08-12] MEDS: RINGERS LACTATED 500 ML 500 ML 999 ML IV (17:00)
[2025-08-12 17:23] VITALS: BP 121/74; PULSE 63; RESP 17; TEMP 36.9; O2SAT 96
--- NOTE | 2025-08-12 17:23 | PRELIM_ITS ---
CT scan of the abdomen and pelvis without intravenous contrast (axial sections with sagittal and coronal reformats) August 12, 2025 16:03 hours Clinical History: Lower abdominal pain. Comparison: No prior study is available for comparison. Findings: Bibasilar streaky atelectasis is present. A small hiatal hernia is noted. Coronary artery calcification is noted. Diffuse thickening of bilateral adrenal glands is noted, possibly secondary to hyperplasia. The liver, gallbladder, pancreas, spleen and kidneys are unremarkable on this noncontrast study. No evidence of bowel obstruction. Fluid-filled small bowel loops are seen in the abdomen without dilatation, with mild wall prominence. The appendix is within normal limits (images 93-121 / 209). There is no mesenteric or retroperitoneal adenopathy. The urinary bladder is unremarkable. The uterus and ovaries are atrophic. There is no free fluid or free air. Degenerative changes are identified in the spine. Impression: Findings suspicious for mild enteritis. Recommend clinical correlation. No other acute abnormality identified in the abdomen or pelvis on this noncontrast study. Report Electronically Signed By: Felix Denton 08/12/2025 5:22:49 PM [EST]
[2025-08-12 18:00] LABS: Collection Type, Urine Clean Catch
[2025-08-12 18:16] LABS: Bacteria,Urine Rare; Bilirubin,Urine Negative (Negative); Blood,Urine 1+ (Negative); Clarity,Urine Turbid (Clear/Hazy); Color,Urine Lt-Yellow (Lt Yel-Yel); Culture Indicated,Urine Not Indicated; Glucose, Urine Trace (Negative); Ketones,Urine Negative (Negative); Leukocyte Esterase,Urine Negative (Negative); Nitrite,Urine Negative (Negative); PH,Urine 7.0 (5.0-7.0); Protein,Urine 2+ (Neg - Trace); RBC,Urine 7 /hpf (0-3); Specific Gravity,Urine 1.010 (1.001-1.035); Squamous Epithelial Cell,Urine 14 /hpf (0-5); Urobilinogen,Urine Negative mg/dL (0.0-1.0); WBC,Urine 7 /hpf (0-5)
[2025-08-12 18:26] LABS: Troponin I 0.064 ng/mL (0.0-0.045)
[2025-08-12 18:52] LABS: Reflex Lactate? Y
[2025-08-12 19:20] LABS: Lactic Acid, 3 HR 1.9 mMol/L (0.4-2.0)
[2025-08-12 20:51] VITALS: BP 165/104; PULSE 77; RESP 18; TEMP 36.6; O2SAT 98
== END 2025-08-12 20:54 | disposition home or self-care (01) ==
PROVIDERS: Nurse Practitioner Family; Emergency Provider Emergency Medicine; PCP Family Medicine
DX: R10.9 Unspecified abdominal pain (principal); I12.0 Hypertensive chronic kidney disease with stage 5 chronic kidney disease or end stage renal disease; J44.9 Chronic obstructive pulmonary disease, unspecified; N18.6 End stage renal disease; Z99.2 Dependence on renal dialysis
CPT/HCPCS: 36415; 74176; 80053; 81001; 83605; 84145; 84484; 85025; 85730; 93005; 96361; 96374; 96375; 99284; J2270; J2405; J7120

== ENCOUNTER 2025-08-22 19:48 | Observation (INO) | payer MEDICARE, MEDICAID, SELFPAY ==
[2025-08-22] VITALS (9 sets, daily range): BP systolic 191–240; BP diastolic 113–159; PULSE 74–95; RESP 18–22; TEMP 36.4–36.6; O2SAT 95–100; BMI 19.6
--- NOTE | 2025-08-22 20:00 | EKG_ITS ---
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1955 Requested By: Lucy Marquis Order Number: [id number] Reading MD: Lucy Marquis Measurements Intervals [place] Rate: 92 P: 72 DE: 174 QRS: -22 QRSD: 97 T: 103 QT: 373 QTc: 463 Interpretive Statements SINUS RHYTHM LEFT ATRIAL ENLARGEMENT [-0.15mV P-WAVE IN V1/V2] POSSIBLE RIGHT VENTRICULAR CONDUCTION DELAY [RSR (QR) IN V1/V2] LEFT VENTRICULAR HYPERTROPHY AND ST-T CHANGE [VOLTAGE CRITERIA PLUS ST/T ABNORMALITY] POSSIBLE SEPTAL MYOCARDIAL INFARCTION , OF INDETERMINATE AGE [30 ms Q WAVE IN V1/V2] Compared to ECG 08/12/2025 16:15:30 Myocardial infarct finding now present Left-axis deviation no longer present ST (T wave) deviation still present /store/S0/[id number]/ecg/[id number].pdf
--- NOTE | 2025-08-22 20:25 | EDNOTE_ITS ---
ED General RME/HPI General Chief complaint: Shortness of Breath/Dyspnea Stated complaint: SOB Time Seen by Provider: 08/22/25 19:56 Arrival date/time: 08/22/25 19:48 Related Data Previous Rx's ?Medication ?Instructions ?Recorded bumetanide 1 mg tablet 1 mg PO QDAY #14 tabs fluticasone fur. 100 mcg-umeclid 1 inh inhalation QDAY #28 ea 04/22/25 62.5 mcg-vilant 25 mcg inhalat.powder (Trelegy Ellipta) valsartan 40 mg tablet 40 mg PO BID #60 tabs vitamin B complex-vitamin C-folic 1 tab PO QDAY #30 ta bs 04/22/25 acid 0.8 mg tablet (Gabby-Cora) dicyclomine 20 mg tablet 20 mg PO QID PRN abdominal p ain 08/12/25 #30 tabs Allergies Allergy/AdvReac Type Severity Reaction Status Date / Time iodine Allergy Severe Rash Verified 07/28/25 21:18 ED Exam Narrative Physical exam: Physical Exam: GENERAL: Awake, answering questions appropriately, appears stated age HEENT: NC/AT. Moist mucosa. PERRLA/EOMI. CARDIO: Heart RRR, no obvious murmurs, no JVD. PULM: No coughing or visible SOB but is currently requiring 2 L of supplemental oxygen. Lungs CTA B/L. GI: Abdomen soft, NT/ND, +BS. SKIN/MSK/EXT: Gross discoloration of fingertips. Breast implant noted. No wounds/rashes/edema/amputations noted. +Pedal pulses present B/L. NEURO: Oriented x3, Moves extremities x4, no focal neurologic deficits noted. Course Quality Measures VTE prophylaxis Orders Category Date Time Status Patient Condition Routine Admission 08/22/25 21:[address] in Observation Status Routine Admission 08/22/25 21:59 Active EKG (ED ONLY) *Do not use* NOW Care 08/22/25 20:00 Completed Flu & Pneumonia Vaccine Screen ONCE Care 08/22/25 22:00 Active Fluid restriction QDAY Care 08/22/25 22:10 Active Miscellaneous Nursing Order NOW Care 08/22/25 21:59 Active Notify provider NEEDED Care 08/22/25 21:59 Active Strict Intake and Output Routine Care 08/22/25 22:00 Ordered Consult to Nephrology Stat Cons 08/22/25 21:25 Ordered Diet Renal Diet 08/22/25 Dinner Active CXRP [XR chest 1V portable] Stat Exams 08/22/25 20:26 Completed EKG (ED Only) Stat Exams 08/22/25 20:00 Draft CBC AM DRAW Lab 08/23/25 05:00 Ordered CBC AM DRAW Lab 08/24/25 05:00 Ordered CBC AM DRAW Lab 08/25/25 05:00 Ordered CBC Stat Lab 08/22/25 20:40 Completed CMP [Comprehensive Metabolic Panel] Stat Lab 08/22/25 20:40 Completed Comprehensive Metabolic Panel AM DRAW Lab 08/23/25 05:00 Ordered Comprehensive Metabolic Panel AM DRAW Lab 08/24/25 05:00 Ordered Comprehensive Metabolic Panel AM DRAW Lab 08/25/25 05:00 Ordered Mag [Magnesium] Stat Lab 08/22/25 20:40 Completed Magnesium AM DRAW Lab 08/23/25 05:00 Ordered Magnesium AM DRAW Lab 08/24/25 05:00 Ordered Magnesium AM DRAW Lab 08/25/25 05:00 Ordered Phosphorous AM DRAW Lab 08/23/25 05:00 Ordered Phosphorous AM DRAW Lab 08/24/25 05:00 Ordered Phosphorous AM DRAW Lab 08/25/25 05:00 Ordered Phosphorous Stat Lab 08/22/25 20:40 Completed Thyroid Stimulating Hormone AM DRAW Lab 08/23/25 05:00 Ordered Acetaminophen Tab [Tylenol Tab] Med 08/22/25 22:00 Active 650 mg PO Q6H PRN Albuterol/Ipratr Rt Dee [Duoneb Rt Dee] Med 08/22/25 22:02 Active 3 ml INH Q2HR PRN Bumetanide Inj [Bumex Inj] Med 08/22/25 21:54 Discontinued 1 mg IVP X1 ONE Heparin Inj Med 08/22/25 22:00 Active 5,000 unit SC Q8HR Magnesium Sulfate 4 GM Ivpb [Magnesium Sulfate Ivpb] Med 08/22/25 21:26 Active 4 gm in 50 ml IV X1 NIFEdipine [Procardia Xl] Med 08/23/25 09:00 Active 60 mg PO QDAY NIFEdipine [Procardia Xl] Med 08/22/25 21:37 Discontinued 60 mg PO X1 ONE Ondansetron Inj [Zofran Inj] Med 08/22/25 22:00 Active 4 mg IVP Q6H PRN Pantoprazole [Protonix] Med 08/23/25 09:00 Active 40 mg PO QDAY Senna [Senokot] Med 08/22/25 22:00 Active 1 tab PO QDAY PRN Valsartan [Diovan] Med 08/23/25 09:00 Active 40 mg PO BID Valsartan [Diovan] Med 08/22/25 20:25 Discontinued 40 mg PO X1 ONE Vitamin B Complex [B-Complex/Vitamin B-12] Med 08/23/25 09:00 Active 1 tab PO QDAY cloNIDine HCL [Catapres] Med 08/23/25 09:00 Active 0.2 mg PO BID cloNIDine HCL [Catapres] Med 08/22/25 22:16 Discontinued 0.2 mg PO X1 ONE Code Status Routine Oth 08/22/25 21:54 Completed Code Status Routine Oth 08/22/25 22:09 Ordered Oxygen Delivery DAILY RT 08/22/25 22:00 Active Vital Signs Vital signs: Vital Signs Temperature 97.6 F 08/22/25 19:50 Pulse Rate 74 08/22/25 19:50 Respiratory Rate 22 H 08/22/25 19:50 Blood Pressure 240/159 H 08/22/25 19:50 Pulse Oximetry (%) 100 08/22/25 19:50 Oxygen Delivery Method Room Air 08/22/25 19:50 Discharge Plan Plan Patient Disposition: Admit Acute Care w/in Hospital Patient condition on transfer: Stable Prescriptions/Referrals Prescriptions/Med Rec: No Action Gabby-Cora 0.8 mg tablet 1 tab PO QDAY Qty: 30 0RF valsartan 40 mg tablet 40 mg PO BID Qty: 60 0RF bumetanide 1 mg tablet 1 mg PO QDAY Qty: 14 0RF Trelegy Ellipta 100-62.5-25 mcg blister with device 1 inh inhalation QDAY Qty: 28 0RF dicyclomine 20 mg tablet 20 mg PO QID PRN (Reason: abdominal pain) Qty: 30 0RF Problem List Clinical Impression: CHF (congestive heart failure) Patient/Caregiver Discharge Instructions Print Language: Citizen [place] Attestation Attestation I, Dr. Moreno, have reviewed the history, exam, and assessment of the patient. I have evaluated the patient independently and agree with the plan of care documented by the resident Dr. Mcginnis. All diagnostic studies were reviewed and discussed. I confirm the diagnosis as documented by the resident. I was present during the Medical Decision Making for this patient. The patient?s plan of care was created between myself and the resident and consistent with our discussion of the patient?s case. MDM Narrative MDM hospital course (for use when minimal MDM required): HPI: 69-year-old female with past medical history of polysubstance use disorder including methamphetamine use, ESRD on CKD (HD on ), HFpEF, COPD, tobacco use disorder, hypertension presenting to the ED on 08/22 with shortness of breath, acute hypoxic respiratory failure. Patient states that she missed her dialysis session on Thursday due to no transportation. Patient has multiple hospital visits in the past and has been admitted for similar presentations. She states that a couple days ago she did smoke methamphetamine. She otherwise denies having any fever/chills, chest pain, dizziness, palpitations, lower extremity swelling. On examination, patient is awake and answering questions appropriately, continues on 2 L of supplemental oxygen, lung and heart exam is largely unremar kable, there is no abdominal tenderness on palpation, no lower extremity edema noted. Patient presented with hypertensive urgency with a systolic blood pressure peaking at 240/159, heart rate 74, respiratory rate 22, afebrile satting 100 on 2 L nasal cannula. Pertinent lab findings included normal CBC, CMP did show BUN 56, creatinine 3.9, eGFR 12, electrolytes largely unremarkable other than mai sphorus of 5.6, corrected calcium of 8.3, AST 42, ALT 44, alk phos 120. Differentials include: Hypertensive emergency, volume overload status secondary to missed dialysis session, ESRD on dialysis, HFpEF exacerbation #Hypertensive emergency #Volume overload status Patient given valsartan 40 x 1 but blood pressure not improving better than 200/100 Nifedipine 60 x 1 given Hospitalist team has been contacted for admission and have agreed to admit for observation Patient's crm consultant, Dr. Pulido has been contacted. There is no need for emergent dialysis at this time but patient will require di alysis in the a.m. Patient seen and examined with attending Dr. Irena Mcginnis, DO PGY-2 Internal Medicine - [facility] Labs Lab(s) Interpretation(s): Pertinent lab findings included normal CBC, CMP did show BUN 56, creatinine 3.9, eGFR 12, electrolytes largely unremarkable other than phosphorus of 5.6, corrected calcium of 8.3, AST 42, ALT 44, alk phos 120. Imaging Imaging Interpretation(s): Chest x-ray shows moderate CHF Medication Administration(s) Medication Administration History Acetaminophen (Acetaminophen 325 Mg Tablet) 650 mg PO Q6H PRN PRN Reason: Fever >101.5 Stop: 09/21/25 21:59 Albuterol/Ipratropium (Albuterol/Ipratropium (Duoneb) Rt Dee 3 Ml Nebu) 3 ml INH Q2HR PRN PRN Reason: SHORTNESS OF BREATH OR WHEEZE Stop: 09/21/25 22:01 Clonidine (Clonidine Hcl 0.1 Mg Tablet) 0.2 mg PO BID [facility] Stop: 09/22/25 08:59 Heparin Sodium (Porcine) (Heparin Sod Inj 5000 Unit/Ml Vial) 5,000 unit SC Q8HR [facility] Stop: 09/05/25 21:59 Magnesium Sulfate (Magnesium Sulfate Ivpb) 4 gm in 50 mls @ 12.5 mls/hr IV X1 ONE Stop: 08/23/25 01:25 Nifedipine (Nifedipine Xl 30 Mg Tabcr) 60 mg PO QDAY [facility] Stop: 09/22/25 08:59 Ondansetron HCl (Ondansetron Inj 2 Mg/Ml Inj 2 Ml) 4 mg IVP Q6H PRN; Protocol PRN Reason: NAUSEA OR VOMITING Stop: 09/21/25 21:59 Pantoprazole Sodium (Pantoprazole 40 Mg Tablet) 40 mg PO QDAY [facility] Stop: 09/22/25 08:59 Sennosides (Senna Tablet) 1 tab PO QDAY PRN; Protocol PRN Reason: constipation Stop: 09/21/25 21:59 Valsartan (Valsartan 40 Mg Tablet) 40 mg PO BID [facility] Stop: 09/22/25 08:59 Vitamin B Complex/Vit C/Folic Acid (Vitamin B Complex Tablet) 1 tab PO QDAY [facility] Stop: 09/22/25 08:59 Discontinued Medications Bumetanide (Bumetanide Inj 0.25 Mg/Ml Vial 4 Ml) 1 mg IVP X1 ONE Stop: 08/22/25 21:55 Clonidine (Clonidine Hcl 0.1 Mg Tablet) 0.2 mg PO X1 ONE Stop: 08/22/25 22:17 Nifedipine (Nifedipine Xl 30 Mg Tabcr) 60 mg PO X1 ONE Stop: 08/22/25 21:38 Valsartan (Valsartan 40 Mg Tablet) 40 mg PO X1 ONE Stop: 08/22/25 20:26 Last Admin: 08/22/25 20:51 Dose: 40 mg Documented By: YOSELIN
--- NOTE | 2025-08-22 20:26 | XR_ITS ---
EXAMINATION: AP chest single view TECHNIQUE: AP portable upright chest single view Date and time: August 22, 2025, 2058 hours, comparison July 28, 2025 INDICATIONS: Shortness of breath today. FINDINGS: Moderate CHF Stable position right internal jugular dialysis catheter Moderate enlargement cardiac contour Prominent central vascular congestion Prominent bilateral perihilar edema Right axillary surgical clips Severe osteopenia IMPRESSION: Moderate CHF, progressed compared to the July 28, 2025 exam
[2025-08-22] MEDS: VALSARTAN 40 MG TABLET PO (20:51)
[2025-08-22 21:14] LABS: Alanine Aminotransferase 44 U/L (10-49); Albumin, Serum 4.4 gm/dL (3.4-4.8); Albumin/Globulin Ratio 1.5 (1.2-2.2); Alkaline Phosphatase 120 U/L (46-116); Anion Gap 16 (7-16); Aspartate Amino Transferase 42 U/L (0-34); BUN/Creatinine Ratio 14 Ratio (12-20); Bilirubin,Total 0.4 mg/dL (0.3-1.2); Blood Urea Nitrogen 56 mg/dL (9-23); Calcium 8.3 mg/dL (8.3-10.6); Calcium (Corrected) 8.3 mg/dL (8.5-10.1); Carbon Dioxide 18.5 mMol/L (20.0-31.0); Chloride 110 mMol/L (98-107); Creatinine (Component) 3.9 mg/dL (0.6-1.3); Estimated Creatinine Clearance 10.5 mL/min (>60); Globulin 2.9 gm/dL (2.3-3.5); Glucose 108 mg/dL (74-106); Magnesium 1.6 mg/dL (1.6-2.6); Osmolality,Calculated 303 (275-295); Phosphorous 5.6 mg/dL (2.4-5.1); Potassium 3.7 mMol/L (3.4-5.1); Sodium 144 mMol/L (136-145); Total Protein 7.3 gm/dL (5.7-8.2); eGFR 12 See Note
[2025-08-22 21:20] LABS: Basophils # (Auto) 0.1 Thou/mm3 (0.0-0.2); Basophils % (Auto) 1 % (0-2.5); Eosinophils # (Auto) 0.1 Thou/mm3 (0.0-0.5); Eosinophils % (Auto) 1 % (0-10); Hematocrit 37.2 % (36.0-46.0); Hemoglobin 12.4 g/dL (12.0-16.0); Immature Granulocytes Auto 0.04 Thou/mm3 (0.00-0.00); Lymphocytes # (Auto) 0.9 Thou/mm3 (1.0-4.8); Lymphocytes % (Auto) 9 % (10-50); Mean Corpuscular HGB Conc 33.3 g/dl (31.0-37.0); Mean Corpuscular Hemoglobin 33.0 pg (25.0-35.0); Mean Corpuscular Volume 99 fL (80-100); Monocytes # (Auto) 0.6 Thou/mm3 (0.0-0.8); Monocytes % (Auto) 6 % (0-12); Neutrophils # (Auto) 8.3 Thou/mm3 (1.8-7.7); Neutrophils % (Auto) 83 % (37-80); Nucleated Red Blood Cell # 0.00 Thou/mm3 (0.00-0.00); Nucleated Red Blood Cell % 0 /100 WBC (0); Platelet Count 246 Thou/mm3 (140-440); RDW Standard Deviation 53.7 fL (36.4-46.3); Red Blood Count 3.76 Miln/mm3 (4.00-5.20); White Blood Count 10.0 Thou/mm3 (3.6-11.0)
--- NOTE | 2025-08-22 22:20 | ESHP_ITS ---
<Statement entered by Lars Lima MD - 08/23/25 07:35> I have discussed and was present for the essential components of the history, physical examination, diagnosis, and treatment plan with the resident. I agree with the patient's care as documented by the resident and amended herein by me. Lars Lima MD FACP <Statement entered by Neymar Anders MD - 08/23/25 07:19> 69-year-old female with significant past history of COPD on 2 L oxygen at home, hypertension, ESRD on hemodialysis 3 times a week since last 3 months presented to the ED with chief complaints of shortness of breath. Patient reported that she missed last 2 dialysis sessions as patient does not have any transport available. Reported that she is still able to make good urine output. Blood pressure at the time of admission is 240/159 mmHg. Labs at the time of admission are significant for bicarb 18.5, creatinine 3.9. Consulted sociology adjunct instructor, Dr. Pulido and she recommended hemodialysis in the morning. Resumed all her home medications. Will continue to monitor her CMP, vitals. Admitted for observation and hemodialysis. Anticipated discharge in next 24 to 48 hours I have personally seen and examined the patient, agree with residents assessment and plan Patient plan of care was discussed with the attending physician, Dr. Clarence Anders, PGY2 Documentation for date of: 08/22/25 HPI History of Present Illness History of present illness: HPI: 69-year-old female past medical history of hypertension, COPD on 2 L home oxygen, ESRD on dialysis 3 times a week for the past 3 months presented to the ED in the evening of 08/22/2025 with shortness of breath. She missed her most recent dialysis session on Thursday08/18/2025 due to not having a ride. She was found to have a blood pressure of 240/159 and crackles on physical exam. The patient was admitted for hypertensive urgency and dialysis. ED Course: * Significant vitals: BP 240/159, respiratory rate 22. * Significant labs: BUN 56, creatinine 3.9, eGFR 12, phosphorus 5.6. Alk phos 120. * Imaging: Chest x-ray showed moderate CHF, prominent central vascular congestion and prominent bilateral perihilar edema. EKG showed sinus rhythm with a rate of 92 and a QTc of 463. * ED intervention: Patient received Valsartan 40 mg p.o. x 1. History: * Past medical history: Hypertension, COPD, ESRD on dialysis 3 times per week, right breast cancer status post mastectomy * Surgical history: section * Social history: [id number]-tsvt smoking history, 30 years of 2 drinks daily alcohol use, patient mentioned that she quit both of these. Patient uses meth twice per month. * Family history: Noncontributory Home Medications: (Pending Med Rec) * Vitamin B supplement, bumetanide 1 mg daily, dicyclomine 20 mg 4 times daily as needed, Trelegy daily, valsartan 40 mg twice daily Allergies: * No known drug allergies CODE STATUS: DNI, resuscitation okay Review of Systems Review of Systems Narrative Review of Systems: Review of Systems: * General: Denies fevers, chills. * HEENT: Denies headache, congestion, or sore throat. * Cardiac: Denies chest pain or palpitations. * Pulmonary: Admits to shortness of breath. * GI: Admits to diffuse abdominal pain. Denies nausea, vomiting, diarrhea, constipation, melena, or hematochezia. * : Denies dysuria, hematuria, frequency, or urgency. * MSK: Denies pain in the extremities, joints, or myalgias. * Neuro: Denies weakness, numbness, vision changes, or speech difficulty. Exam Vital Signs Temp Pulse Resp BP Pulse Ox O2 Del Method O2 Flow Rate 98 F 89 19 204/119 H 98 Nasal Cannula 2 08/22/25 22:08 08/22/25 22:08 08/22/25 22:08 08/22/25 22:08 08/22/25 22:08 08/22/25 22:08 08/22/25 22:08 Narrative Exam General: Awake and in no acute distress. Conversational and non-toxic appearing. Neurologic: GCS 15. Alert and oriented x3, no gross neurological deficit, and patient able to move all 4 extremities. HEENT: Normocephalic, atraumatic, mucous membranes moist. Pupils reactive to light. Heart: Regular rate and rhythm, normal S1 and S2, no murmurs. Lungs: Diffuse crackles bilaterally. Saturating 98% on 2 L nasal cannula. Abdomen: Soft, nondistended, nontender, positive bowel sounds. No guarding or rebound tenderness. Extremities: No edema. 2+ radial and dorsalis pedis pulses bilaterally. Skin: Warm. Dry. No rash or ecchymoses. Results: Labs 08/22/25 20:40 08/22/25 20:40 Labs: Short CBC 08/22/25 Range/Units 20:40 WBC 10.0 (3.6-11.0) Thou/mm3 Hgb 12.4 (12.0-16.0) g/dL Hct 37.2 (36.0-46.0) % Plt Count 246 (140-440) Thou/mm3 BMP 08/22/25 20:40 Sodium 144 Potassium 3.7 Chloride 110 H Carbon Dioxide 18.5 L BUN 56 H Creatinine 3.9 H Glucose 108 H Calcium 8.3 Liver Function 08/22/25 Range/Units 20:40 Total Bilirubin 0.4 (0.3-1.2) mg/dL AST 42 H (0-34) U/L ALT 44 (10-49) U/L Alkaline Phosphatase 120 H (46-116) U/L Albumin 4.4 (3.4-4.8) gm/dL Quality Measures Quality Measures VTE prophylaxis Advance care planning discussed with:: patient Medications Home Medications and Allergies Allergies Allergy/AdvReac Type Severity Reaction Status Date / Time iodine Allergy Severe Rash Verified 07/28/25 21:18 Visit Medications Acetaminophen (Acetaminophen 325 Mg Tablet) 650 mg PO Q6H PRN PRN Reason: Fever >101.5 Stop: 09/21/25 21:59 Albuterol/Ipratropium (Albuterol/Ipratropium (Duoneb) Rt Dee 3 Ml Nebu) 3 ml INH Q2HR PRN PRN Reason: SHORTNESS OF BREATH OR WHEEZE Stop: 09/21/25 22:01 Clonidine (Clonidine Hcl 0.1 Mg Tablet) 0.2 mg PO BID [facility] Stop: 09/22/25 08:59 Heparin Sodium (Porcine) (Heparin Sod Inj 5000 Unit/Ml Vial) 5,000 unit SC Q8HR [facility] Stop: 09/05/25 21:59 Magnesium Sulfate (Magnesium Sulfate Ivpb) 4 gm in 50 mls @ 12.5 mls/hr IV X1 ONE Stop: 08/23/25 01:25 Nifedipine (Nifedipine Xl 30 Mg Tabcr) 60 mg PO QDAY [facility] Stop: 09/22/25 08:59 Ondansetron HCl (Ondansetron Inj 2 Mg/Ml Inj 2 Ml) 4 mg IVP Q6H PRN; Protocol PRN Reason: NAUSEA OR VOMITING Stop: 09/21/25 21:59 Pantoprazole Sodium (Pantoprazole 40 Mg Tablet) 40 mg PO QDAY [facility] Stop: 09/22/25 08:59 Sennosides (Senna Tablet) 1 tab PO QDAY PRN; Protocol PRN Reason: constipation Stop: 09/21/25 21:59 Valsartan (Valsartan 40 Mg Tablet) 40 mg PO BID [facility] Stop: 09/22/25 08:59 Vitamin B Complex/Vit C/Folic Acid (Vitamin B Complex Tablet) 1 tab PO QDAY [facility] Stop: 09/22/25 08:59 Discontinued Medications Bumetanide (Bumetanide Inj 0.25 Mg/Ml Vial 4 Ml) 1 mg IVP X1 ONE Stop: 08/22/25 21:55 Clonidine (Clonidine Hcl 0.1 Mg Tablet) 0.2 mg PO X1 ONE Stop: 08/22/25 22:17 Nifedipine (Nifedipine Xl 30 Mg Tabcr) 60 mg PO X1 ONE Stop: 08/22/25 21:38 Valsartan (Valsartan 40 Mg Tablet) 40 mg PO X1 ONE Stop: 08/22/25 20:26 Last Admin: 08/22/25 20:51 Dose: 40 mg Assessment & Plan Plan Summary: 69-year-old female past medical history of hypertension, COPD, ESRD on dialysis 3 times a week presented to the ED on the evening of 08/22/2025 with shortness of breath. She missed her most recent dialysis session on Thursday08/18/2025 due to not having a ride. She was found to have a blood pressure of 240/159. The patient was admitted for hypertensive urgency and dialysis. #Hypertensive Urgency * Patient presented with a BP of 240/159 (Map 186), received Valsartan 40 mg p.o. x 1, improved to 204/119 (Map 147), followed by 191/113 (Map 139) * Patient presented with a creatinine of 3.9, may be a mix of end organ damage versus ESRD * Chest x-ray showed prominent central vascular congestion and prominent bilateral perihilar edema, may be evidence of end organ damage qualifying for hypertensive emergency, though more likely secondary to missed dialysis session Plan: * Clonidine 0.2 mg p.o. twice daily * Nifedipine 60 mg p.o. daily * Valsartan 40 mg p.o. twice daily * Bumex 1 mg IV push * For hypertensive urgency, the goal blood pressure reduction over the first few hours is below 160/100 or about 25% of the blood pressure on presentation of 240/159, which would be about 180/119, and the patient is very close to that goal * Assuming that the patient qualifies for hypertensive emergency, which is less likely given that the ESRD is likely producing the elevated creatinine and vascular congestion, which would otherwise be evidence of end organ damage in the absence of ESRD, the goal MAP reduction is about 10-20% over the first few hours, which based on a presenting MAP of 186 would be a MAP goal of about 150, which was achieved. The goal MAP reduction over the next 24 hours after admission would be about 25%, which based on the presenting MAP of 186 would be a MAP goal of about 140, which the patient achieved already. #ESRD on dialysis * Patient presented with BUN 56, creatinine 3.9, eGFR 12 * Dialysis 3 times per week, missed her last session * Crackles on physical exam, no peripheral edema Plan: * Plan for dialysis 08/23/2025 * Strict ins and outs * Fluid restriction 1800 mL * Nephrology consult * Renal diet #COPD * Per patient history * Patient has a 45-juxx-ohse smoking history * Patient uses 2 L oxygen at home Plan: * Oxygen titrated to a saturation goal of 92 #History of Hypertension * Patient takes valsartan 40 mg p.o. twice daily, upon chart review patient has a history of noncompliance Plan: * Restarted valsartan as above Hospital Maintenance: DVT ppx: Heparin 5000 units subcu every 8 hours GI ppx: Pantoprazole 40 mg p.o. daily Diet: Renal diet IV lines: Peripheral IVs, right subclavian dialysis catheter Code status: DNI, resuscitation okay Dispo: Telemetry monitoring floor, dialysis planned for 08/23/2025, monitoring blood pressure. Patient was seen and discussed with my attending physician Dr. Clarence RANDALL and my senior resident Dr. Martita RANDALL PGY-2. Dmitriy Gonzalez DO PGY-1.
[2025-08-22] MEDS: BUMETANIDE INJ 0.25 MG/ML VIAL 4 ML 1 MG IVP (23:14)
[2025-08-22] MEDS: HEPARIN SOD INJ 5000 UNIT/ML VIAL SC (23:21)
[2025-08-22] MEDS: Magnesium Sulfate 4 GM Ivpb 4 GM/50 ML BAG IV (23:23)
[2025-08-23] VITALS (26 sets, daily range): BP systolic 126–185; BP diastolic 75–112; PULSE 66–77; RESP 14–91; TEMP 36.6–36.8; O2SAT 91–98; BMI 21.0
[2025-08-23] MEDS: NIFEdipine XL 30 MG TABCR 60 MG PO (00:33)
--- NOTE | 2025-08-23 04:18 | PC.NURSE ---
[employer] downtime occurred on <08/23/25> from <0200> to <0350>.
[2025-08-23 06:16] LABS: Basophils # (Auto) 0.1 Thou/mm3 (0.0-0.2); Basophils % (Auto) 1 % (0-2.5); Eosinophils # (Auto) 0.1 Thou/mm3 (0.0-0.5); Eosinophils % (Auto) 2 % (0-10); Hematocrit 35.2 % (36.0-46.0); Hemoglobin 11.8 g/dL (12.0-16.0); Immature Granulocytes Auto 0.01 Thou/mm3 (0.00-0.00); Lymphocytes # (Auto) 1.2 Thou/mm3 (1.0-4.8); Lymphocytes % (Auto) 19 % (10-50); Mean Corpuscular HGB Conc 33.5 g/dl (31.0-37.0); Mean Corpuscular Hemoglobin 33.1 pg (25.0-35.0); Mean Corpuscular Volume 99 fL (80-100); Monocytes # (Auto) 0.6 Thou/mm3 (0.0-0.8); Monocytes % (Auto) 9 % (0-12); Neutrophils # (Auto) 4.2 Thou/mm3 (1.8-7.7); Neutrophils % (Auto) 69 % (37-80); Nucleated Red Blood Cell # 0.00 Thou/mm3 (0.00-0.00); Nucleated Red Blood Cell % 0 /100 WBC (0); Platelet Count 220 Thou/mm3 (140-440); RDW Standard Deviation 53.6 fL (36.4-46.3); Red Blood Count 3.57 Miln/mm3 (4.00-5.20); White Blood Count 6.1 Thou/mm3 (3.6-11.0)
[2025-08-23 06:29] LABS: Alanine Aminotransferase 33 U/L (10-49); Albumin, Serum 3.9 gm/dL (3.4-4.8); Albumin/Globulin Ratio 1.6 (1.2-2.2); Alkaline Phosphatase 103 U/L (46-116); Anion Gap 15 (7-16); Aspartate Amino Transferase 26 U/L (0-34); BUN/Creatinine Ratio 16 Ratio (12-20); Bilirubin,Total 0.5 mg/dL (0.3-1.2); Blood Urea Nitrogen 64 mg/dL (9-23); Calcium 8.0 mg/dL (8.3-10.6); Calcium (Corrected) 8.1 mg/dL (8.5-10.1); Carbon Dioxide 22.5 mMol/L (20.0-31.0); Chloride 108 mMol/L (98-107); Creatinine (Component) 4.1 mg/dL (0.6-1.3); Estimated Creatinine Clearance 10.4 mL/min (>60); Globulin 2.5 gm/dL (2.3-3.5); Glucose 94 mg/dL (74-106); Magnesium 2.5 mg/dL (1.6-2.6); Osmolality,Calculated 307 (275-295); Phosphorous 6.0 mg/dL (2.4-5.1); Potassium 4.0 mMol/L (3.4-5.1); Sodium 145 mMol/L (136-145); Thyroid Stimulating Hormone 0.92 uIU/mL (0.55-4.78); Total Protein 6.4 gm/dL (5.7-8.2); eGFR 11 See Note
[2025-08-23] MEDS: PANTOPRAZOLE 40 MG TABLET PO (08:36)
--- NOTE | 2025-08-23 09:07 | PD.RESHP ---
Documentation for date of: 08/23/25 Exam Vital Signs Temp Pulse Resp BP Pulse Ox O2 Del Method O2 Flow Rate 98.0 F 71 14 126/91 H 93 L Nasal Cannula 2 08/23/25 08:00 08/23/25 08:38 08/23/25 08:00 08/23/25 08:38 08/23/25 08:00 08/23/25 08:00 08/23/25 08:00 Results: Labs 08/23/25 04:58 08/23/25 04:58 Labs: Short CBC 08/22/25 08/23/25 Range/Units 20:40 04:58 WBC 10.0 6.1 (3.6-11.0) Thou/mm3 Hgb 12.4 11.8 L (12.0-16.0) g/dL Hct 37.2 35.2 L (36.0-46.0) % Plt Count 246 220 (140-440) Thou/mm3 BMP 08/22/25 08/23/25 20:40 04:58 Sodium 144 145 Potassium 3.7 4.0 Chloride 110 H 108 H Carbon Dioxide 18.5 L 22.5 BUN 56 H 64 H Creatinine 3.9 H 4.1 H* Glucose 108 H 94 Calcium 8.3 8.0 L Liver Function 08/22/25 08/23/25 Range/Units 20:40 04:58 Total Bilirubin 0.4 0.5 (0.3-1.2) mg/dL AST 42 H 26 (0-34) U/L ALT 44 33 (10-49) U/L Alkaline Phosphatase 120 H 103 (46-116) U/L Albumin 4.4 3.9 D (3.4-4.8) gm/dL Quality Measures Quality Measures VTE prophylaxis Medications Home Medications and Allergies Home Medications ?Medication ?Instructions ?Recorded ?Confirmed ?Type carvedilol 12.5 mg tablet 12.5 mg PO BID 08/23/25 08/23/25 History clonidine HCl 0.2 mg tablet mg 08/23/25 History Allergies Allergy/AdvReac Type Severity Reaction Status Date / Time iodine Allergy Severe Rash Verified 07/28/25 21:18 Visit Medications Acetaminophen (Acetaminophen 325 Mg Tablet) 650 mg PO Q6H PRN PRN Reason: Fever >101.5 Stop: 09/21/25 21:59 Albuterol/Ipratropium (Albuterol/Ipratropium (Duoneb) Rt Dee 3 Ml Nebu) 3 ml INH Q2HR PRN PRN Reason: SHORTNESS OF BREATH OR WHEEZE Stop: 09/21/25 22:01 Clonidine (Clonidine Hcl 0.1 Mg Tablet) 0.2 mg PO BID [facility] Stop: 09/22/25 08:59 Last Admin: 08/23/25 08:38 Dose: Not Given Heparin Sodium (Porcine) (Heparin Sod Inj 5000 Unit/Ml Vial) 5,000 unit SC Q8HR [facility] Stop: 09/05/25 21:59 Last Admin: 08/23/25 05:20 Dose: Not Given Nifedipine (Nifedipine Xl 30 Mg Tabcr) 60 mg PO QDAY [facility] Stop: 09/22/25 08:59 Last Admin: 08/23/25 08:38 Dose: Not Given Ondansetron HCl (Ondansetron Inj 2 Mg/Ml Inj 2 Ml) 4 mg IVP Q6H PRN; Protocol PRN Reason: NAUSEA OR VOMITING Stop: 09/21/25 21:59 Pantoprazole Sodium (Pantoprazole 40 Mg Tablet) 40 mg PO QDAY [facility] Stop: 09/22/25 08:59 Last Admin: 08/23/25 08:36 Dose: 40 mg Sennosides (Senna Tablet) 1 tab PO QDAY PRN; Protocol PRN Reason: constipation Stop: 09/21/25 21:59 Valsartan (Valsartan 40 Mg Tablet) 40 mg PO BID [facility] Stop: 09/22/25 08:59 Last Admin: 08/23/25 08:38 Dose: Not Given Vitamin B Complex/Vit C/Folic Acid (Vitamin B Complex Tablet) 1 tab PO QDAY [facility] Stop: 09/22/25 08:59 Discontinued Medications Bumetanide (Bumetanide Inj 0.25 Mg/Ml Vial 4 Ml) 1 mg IVP X1 ONE Stop: 08/22/25 21:55 Last Admin: 08/22/25 23:14 Dose: 1 mg Clonidine (Clonidine Hcl 0.1 Mg Tablet) 0.2 mg PO X1 [facility] Stop: 08/22/25 22:17 Last Admin: 08/22/25 23:17 Dose: 0.2 mg Magnesium Sulfate (Magnesium Sulfate Ivpb) 4 gm in 50 mls @ 12.5 mls/hr IV X1 ONE Stop: 08/23/25 01:25 Last Infusion: 08/23/25 05:33 Dose: Infused Nifedipine (Nifedipine Xl 30 Mg Tabcr) 60 mg PO X1 ONE Stop: 08/22/25 21:38 Last Admin: 08/23/25 00:33 Dose: 60 mg Valsartan (Valsartan 40 Mg Tablet) 40 mg PO X1 ONE Stop: 08/22/25 20:26 Last Admin: 08/22/25 20:51 Dose: 40 mg
[2025-08-23] MEDS: VITAMIN B COMPLEX TABLET 1 TAB PO (09:47)
--- NOTE | 2025-08-23 10:08 | ESCONSULT_ITS ---
HPI Data of Consult Consult date: 08/23/25 Requesting Physician: Jimy Gimenez MD Admitting Provider: Lars Lima MD Attending Provider: Jimy Gimenez MD Primary Care Provider: Hugo Thomas MD Consult Narrative Reason for consult: ESRD on dialysis History of present illness: 69-year-old female past medical history of hypertension, COPD on 2 L home oxygen, ESRD on dialysis 3 times a week for the past 3 months presented to the ED in the evening of 08/22/2025 with shortness of breath. She missed her most recent dialysis session on Thursday08/18/2025 due to not having a ride. She was found to have a blood pressure of 240/159 and crackles on physical exam. Past Medical History: as above, right breast cancer s/p mastectomy Family History: noncontributory Surgical History: c section Social History: 20-hcbw-jhiv smoking history, quit. 30 years of 2 drinks daily alcohol use, quit. Uses meth twice per month. Current Medications: Vitamin B supplement, bumetanide 1 mg daily, dicyclomine 20 mg 4 times daily as needed, Trelegy daily, valsartan 40 mg twice daily (pending official med rec) Allergies: iodone (rash) Admitted for hypertensive urgency. Nephrology consulted for ESRD with need for dialysis. 08/23/25: Patient seen and assessed at bedside. No complaints, denies shortness of breath or abdominal pain. Reports she has missed last 2 dialysis sessions due to lack of transport. Unable to remember when her last session was. Systolics improved to 120s this morning s/p clonidine, Bumex, and valsartan overnight. Potassium increased to 4.0 from 3.7. BUN 64, Cr 4.1 (from 3.9, baseline 2.5- 3.6), phos 6.0. Plan for dialysis this afternoon. Will re-evaluate renal panel tomorrow if patient will require another session. cc:: cc: Jimy Gimenez MD Exam Vital Signs Temp Pulse Resp BP Pulse Ox O2 Del Method O2 Flow Rate 98.0 F 71 14 126/91 H 93 L Nasal Cannula 2 08/23/25 08:00 08/23/25 08:38 08/23/25 08:00 08/23/25 08:38 08/23/25 08:00 08/23/25 08:00 08/23/25 08:00 Narrative Exam Physical Exam General: Awake and in no acute distress. Conversational and non-toxic appearing. Cachetic. HEENT: Normocephalic, atraumatic, mucous membranes dry. Heart: Regular rate and rhythm, normal S1 and S2, no murmurs appreciated. Lungs: Clear to auscultation with no wheezing or crackles. Abdomen: Soft, nondistended, nontender, positive bowel sounds. No guarding or rebound tenderness. Neurologic: Alert and oriented x3, no gross neurological deficit, and patient able to move all 4 extremities. Extremities: No edema. Skin: No rash or ecchymoses. Results Labs 08/24/25 05:20 08/24/25 05:20 Labs: Short CBC 08/22/25 08/23/25 Range/Units 20:40 04:58 WBC 10.0 6.1 (3.6-11.0) Thou/mm3 Hgb 12.4 11.8 L (12.0-16.0) g/dL Hct 37.2 35.2 L (36.0-46.0) % Plt Count 246 220 (140-440) Thou/mm3 BMP 08/22/25 08/23/25 20:40 04:58 Sodium 144 145 Potassium 3.7 4.0 Chloride 110 H 108 H Carbon Dioxide 18.5 L 22.5 BUN 56 H 64 H Creatinine 3.9 H 4.1 H* Glucose 108 H 94 Calcium 8.3 8.0 L Liver Function 08/22/25 08/23/25 Range/Units 20:40 04:58 Total Bilirubin 0.4 0.5 (0.3-1.2) mg/dL AST 42 H 26 (0-34) U/L ALT 44 33 (10-49) U/L Alkaline Phosphatase 120 H 103 (46-116) U/L Albumin 4.4 3.9 D (3.4-4.8) gm/dL Quality Measures Quality Measures VTE prophylaxis Advance care planning discussed with:: patient Medications Home Medications and Allergies Home Medications ?Medication ?Instructions ?Recorded ?Confirmed ?Type carvedilol 12.5 mg tablet 12.5 mg PO BID 08/23/2512/13 History clonidine HCl 0.2 mg tablet 0.2 mg PO Q12H 08/23/25 History Allergies Allergy/AdvReac Type Severity Reaction Status Date / Time iodine Allergy Severe Rash Verified 07/28/25 21:18 Visit Medications Acetaminophen (Acetaminophen 325 Mg Tablet) 650 mg PO Q6H PRN PRN Reason: Fever >101.5 Stop: 09/21/25 21:59 Albuterol/Ipratropium (Albuterol/Ipratropium (Duoneb) Rt Dee 3 Ml Nebu) 3 ml INH Q2HR PRN PRN Reason: SHORTNESS OF BREATH OR WHEEZE Stop: 09/21/25 22:01 Clonidine (Clonidine Hcl 0.1 Mg Tablet) 0.2 mg PO BID [facility] Stop: 09/22/25 08:59 Last Admin: 08/23/25 08:38 Dose: Not Given Heparin Sodium (Porcine) (Heparin Sod Inj 5000 Unit/Ml Vial) 5,000 unit SC Q8HR [facility] Stop: 09/05/25 21:59 Last Admin: 08/23/25 05:20 Dose: Not Given Nifedipine (Nifedipine Xl 30 Mg Tabcr) 60 mg PO QDAY [facility] Stop: 09/22/25 08:59 Last Admin: 08/23/25 08:38 Dose: Not Given Ondansetron HCl (Ondansetron Inj 2 Mg/Ml Inj 2 Ml) 4 mg IVP Q6H PRN; Protocol PRN Reason: NAUSEA OR VOMITING Stop: 09/21/25 21:59 Pantoprazole Sodium (Pantoprazole 40 Mg Tablet) 40 mg PO QDAY [facility] Stop: 09/22/25 08:59 Last Admin: 08/23/25 08:36 Dose: 40 mg Sennosides (Senna Tablet) 1 tab PO QDAY PRN; Protocol PRN Reason: constipation Stop: 09/21/25 21:59 Valsartan (Valsartan 40 Mg Tablet) 40 mg PO BID [facility] Stop: 09/22/25 08:59 Last Admin: 08/23/25 08:38 Dose: Not Given Vitamin B Complex/Vit C/Folic Acid (Vitamin B Complex Tablet) 1 tab PO QDAY [facility] Stop: 09/22/25 08:59 Last Admin: 08/23/25 09:47 Dose: 1 tab Discontinued Medications Bumetanide (Bumetanide Inj 0.25 Mg/Ml Vial 4 Ml) 1 mg IVP X1 ONE Stop: 08/22/25 21:55 Last Admin: 08/22/25 23:14 Dose: 1 mg Clonidine (Clonidine Hcl 0.1 Mg Tablet) 0.2 mg PO X1 ONE Stop: 08/22/25 22:17 Last Admin: 08/22/25 23:17 Dose: 0.2 mg Magnesium Sulfate (Magnesium Sulfate Ivpb) 4 gm in 50 mls @ 12.5 mls/hr IV X1 ONE Stop: 08/23/25 01:25 Last Infusion: 08/23/25 05:33 Dose: Infused Nifedipine (Nifedipine Xl 30 Mg Tabcr) 60 mg PO X1 ONE Stop: 08/22/25 21:38 Last Admin: 08/23/25 00:33 Dose: 60 mg Valsartan (Valsartan 40 Mg Tablet) 40 mg PO X1 ONE Stop: 08/22/25 20:26 Last Admin: 08/22/25 20:51 Dose: 40 mg Assessment & Plan Plan Patient is a 69-year-old female past medical history of hypertension, COPD on 2 L home oxygen, ESRD on dialysis MWF, right breast cancer s/p mastectomy, meth use admitted on 08/22/25 for emergent dialysis, nephrology consulted for ESRD requiring emergent dialysis. #ESRD 2/2 cardiorenal syndrome #On dialysis Thursday/Thursday - Per chart review, patient has been admitted at least twice in the past 4 months for emergent dialysis. Patient has hx of being non adherent to HD sessions and outpatient follow up due to lack of transportation. - Was previously on Thursday/ schedule but recently changed to Thursday/Thursday. - Presented again on 08/22 for shortness of breath requesting dialysis - BUN 56 -> 64. Cr 3.9 -> 4.1 (baseline 2.8-3.7). Phosphorus 5.6 -> 6. - Of note, bicarb 18.5, anion gap 16 on admission. - Chest x-ray showed moderate CHF, prominent central vascular congestion and prominent bilateral perihilar edema. 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 Pulido. Vivienne Soriano DO, PGY-1 Attending Provider Attestation/Addendum Patient currently seen and examined with resident physician Dr. Soriano. Note reviewed, agree with findings and recommendations. Patient currently seen on dialysis. Tolerating dialysis without any problems. Hemodialysis for 3 hours, 2K, ultrafiltration 2-3 L, Epogen 6000, no heparin ordered. Plan of care discussed with the dialysis nurse. Please see dialysis flowsheet for further details. Next dialysis scheduled for Thursday
--- NOTE | 2025-08-23 10:19 | PC.SS ---
Rounding: New admit pending work up. Pt to get HD today.
--- NOTE | 2025-08-23 11:33 | ESPR_ITS ---
<Statement entered by Jimy Gimenez MD - 09/04/25 09:17> I reviewed above note and agree with findings and plans. I have also personally examined the patient with medicine team and went over assessment and plan with medical team including internet sales consultant and resident physician. <Statement entered by Jacquie Eduardo MD - 08/24/25 16:44> In summary: this is a 69-year-old female with hypertension, chronic obstructive pulmonary disease on 2 liters of home oxygen, end-stage renal disease on dialysis three times weekly, and a history of right breast cancer presented with shortness of breath after missing two dialysis sessions. She was admitted for hypertensive urgency with a blood pressure of 240/159, which improved with medication. Her creatinine was 3.9, and a chest X-ray showed signs of fluid overload likely due to missed dialysis. She also had acute respiratory distress, which improved with Bumetanide. Currently we are managing blood pressure and continued with HD. She was also managed for her chronic obstructive pulmonary disease and heart failure with reduced ejection fraction, with monitoring for any worsening of her condition. Will likely discharge tomorrow if BP remains controlled. I?ve reviewed the note and agree with this assessment and plan, with the exceptions outlined above. I personally went over the labs, imaging, home medications, and prior records, and examined the patient. The case was also reviewed with the attending physician. Please note: this document was transcribed using voice recognition technology; minor inaccuracies may be present. Jacquie Eduardo DO PGY II Documentation for date of: 08/23/25 Subjective Subjective Interval history: Patient was seen at the bedside this morning. She reports feeling significantly better with less shortness of breath. Patient typically receives dialysis on Mondays, Wednesdays, and Fridays, but missed her last two sessions due to a lack of transportation. Patient is scheduled for dialysis this afternoon. On admission, patient's blood pressure was 240/159. Following clonidine, Bumex, and valsartan, her systolic blood pressure has improved to the 120s. Exam Vital Signs Temp Pulse Resp BP Pulse Ox O2 Del Method O2 Flow Rate 98.0 F 74 19 126/91 H 93 L Nasal Cannula 2 08/23/25 08:00 08/23/25 09:00 08/23/25 09:00 08/23/25 08:38 08/23/25 08:00 08/23/25 08:00 08/23/25 08:00 Narrative Exam Physical Exam General: Awake and in no acute distress. Conversational and non-toxic appearing. HEENT: Normocephalic, atraumatic, mucous membranes moist. Heart: Regular rate and rhythm, no murmurs. Non-labored respirations, symmetric chest rise, no use of accessory muscles. Lungs: Clear to auscultation with no wheezing or crackles. Abdomen: Soft, nondistended, nontender. No guarding or rebound tenderness. Neurologic: Alert and oriented x3, no gross neurological deficit, and patient able to move all 4 extremities. Extremities: No edema. Skin: No rash or ecchymoses. Psychiatric: Cooperative, appropriate mood and affect Objective Labs 08/23/25 04:58 08/23/25 04:58 Labs: Laboratory Results - last 24 hr 08/22/25 08/23/25 20:40 04:58 WBC 10.0 6.1 RBC 3.76 L 3.57 L Hgb 12.4 11.8 L Hct 37.2 35.2 L MCV 99 99 MCH 33.0 33.1 MCHC 33.3 33.5 RDW Std Deviation 53.7 H 53.6 H Plt Count 246 220 Neut % (Auto) 83 H 69 Lymph % (Auto) 9 L 19 Coke % (Auto) 6 9 Eos % (Auto) 1 2 Baso % (Auto) 1 1 Neut # (Auto) 8.3 H 4.2 Lymph # (Auto) 0.9 L 1.2 [place] # (Auto) 0.6 0.6 Eos # (Auto) 0.1 0.1 Baso # (Auto) 0.1 0.1 Immature Gran # (Auto) 0.04 H 0.01 H Absolute Nucleated RBC 0.00 0.00 Immature Gran % 0 0 Nucleated RBC % 0 0 Sodium 144 145 Potassium 3.7 4.0 Chloride 110 H 108 H Carbon Dioxide 18.5 L 22.5 Anion Gap 16 15 BUN 56 H 64 H Creatinine 3.9 H 4.1 H* Estim Creat Clear Calc 10.5 L 10.4 L eGFR 12 L* 11 L* BUN/Creatinine Ratio 14 16 Glucose 108 H 94 Calculated Osmolality 303 H 307 H Calcium 8.3 8.0 L Corrected Calcium 8.3 L 8.1 L Phosphorus 5.6 H 6.0 H Magnesium 1.6 2.5 Total Bilirubin 0.4 0.5 AST 42 H 26 ALT 44 33 Alkaline Phosphatase 120 H 103 Total Protein 7.3 6.4 Albumin 4.4 3.9 D Globulin 2.9 2.5 Albumin/Globulin Ratio 1.5 1.6 TSH 0.92 Quality Measures Quality Measures VTE prophylaxis Advance care planning discussed with:: patient Assessment & Plan Assessment Current Active Medications: Generic Name Dose Route Start Last Admin Trade Name Freq PRN Reason Stop Dose Admin Acetaminophen 650 mg 08/22/25 22:00 Acetaminophen 325 Mg Tablet PO 09/21/25 21:59 Q6H PRN Fever >101.5 Albuterol/Ipratropium 3 ml 08/22/25 22:02 Albuterol/Ipratropium (Duoneb) Rt Dee 3 Ml Nebu INH 09/21/25 22:01 Q2HR PRN SHORTNESS OF BREATH OR WHEEZE Clonidine 0.2 mg 08/23/25 09:00 08/23/25 08:38 Clonidine Hcl 0.1 Mg Tablet PO 09/22/25 08:59 Not Given BID KENNEDY Heparin Sodium (Porcine) 5,000 unit 08/22/25 22:00 08/23/25 05:20 Heparin Sod Inj 5000 Unit/Ml Vial SC 09/05/25 21:59 Not Given Q8HR KENNEDY Nifedipine 60 mg 08/23/25 09:00 08/23/25 08:38 Nifedipine Xl 30 Mg Tabcr PO 09/22/25 08:59 Not Given QDAY [facility] Ondansetron HCl 4 mg 08/22/25 22:00 Ondansetron Inj 2 Mg/Ml Inj 2 Ml IVP 09/21/25 21:59 Q6H PRN NAUSEA OR VOMITING Protocol Pantoprazole Sodium 40 mg 08/23/25 09:00 08/23/25 08:36 Pantoprazole 40 Mg Tablet PO 09/22/25 08:59 40 mg QDAY KENNEDY Administration Sennosides 1 tab 08/22/25 22:00 Senna Tablet PO 09/21/25 21:59 QDAY PRN constipation Protocol Valsartan 40 mg 08/23/25 09:00 08/23/25 08:38 Valsartan 40 Mg Tablet PO 09/22/25 08:59 Not Given BID KENNEDY Vitamin B Complex/Vit C/Folic Acid 1 tab 08/23/25 09:00 08/23/25 09:47 Vitamin B Complex Tablet PO 09/22/25 08:59 1 tab QDAY KENNEDY Administration Plan 69-year-old female with a history of hypertension, COPD on 2L home oxygen, and ESRD on dialysis three times a week, right breast cancer s/p mastectomy presented with shortness of breath after missing two dialysis sessions. She was admitted for hypertensive urgency and emergent dialysis. #Hypertensive urgency (improving) #History of hypertension - Presented with a BP of 240/159. - BP improved after Valsartan 40mg, Clonidine 0.2mg, and Bumetanide 1mg. - Creatinine 3.9, may be a mix of end organ damage versus ESRD. - CXR 08/22 showed prominent central vascular congestion and prominent bilateral perihilar edema. - May be evidence of end organ damage qualifying for hypertensive emergency, though more likely secondary to missed dialysis sessions. Plan: * Clonidine 0.2mg PO BID. * Nifedipine 60mg PO daily. * Valsartan 40 mg PO BID. #Acute respiratory distress - Presented with shortness of breath after missing dialysis. - Respiratory status improved after Bumetanide 1mg. - Currently saturating 98% on room air. - No signs of acute infection or aspiration at this time. Plan: * Plan for emergent dialysis. * Monitored for ongoing respiratory support needs. * Reassess BP and fluid status post-dialysis. * Adjust medications as needed based on dialysis outcomes and clinical response. #ESRD 2/2 cardiorenal syndrome #On dialysis MWF - Per chart review, history of hospital admission for emergent dialysis. - BUN 56, creatinine 3.9, eGFR 12 Plan: * Plan for emergent dialysis 08/23/2025. * Strict ins and outs. * Fluid restriction 1800 mL. * Nephrology consult. * Renal diet. * Avoid nephrotoxic agents. #COPD - Per patient history - Patient has a [id number] smoking history. - Patient uses 2 L oxygen at home. - Uses Trelegy at home. Plan: * Oxygen titrated to a saturation goal of 92. * Discharge with Trelegy. #HFrEF - Echo 11/05/2024 showed EF 45-50%. - CXR 08/23 showed CHF. Plan * Monitor for any signs of worsening heart failure, including edema, weight gain, or increased shortness of breath. Health Maintenance Disposition: Tele DVT prophylaxis: Heparin 5,000 U subQ GI prophylaxis: Pantoprazole 40 mg IV daily Diet: Renal diet Lines: Peripheral IV CODE STATUS: DNI, resuscitation okay Patient plan of care was discussed with the senior resident, Dr. Eduardo, and attending physician, Dr. Gimenez. Ailyn Mares, PGY-1
[2025-08-23] MEDS: HEPARIN SOD INJ 5000 UNIT/ML VIAL SC (13:57)
[2025-08-23 17:27] LABS: Hepatitis A Antibody IgM Non Reactive (Non React); Hepatitis B Core Antibody IgM Non Reactive (Non React); Hepatitis B Surface Ab NonReact(Not Immune) (Immune); Hepatitis B Surface Antigen Non Reactive (Non React); Hepatitis C Antibody Non Reactive (Non React)
[2025-08-23] MEDS: VALSARTAN 40 MG TABLET PO (20:33)
[2025-08-24] VITALS (7 sets, daily range): BP systolic 117–149; BP diastolic 69–90; PULSE 65–72; RESP 12–96; TEMP 36.4–36.7; O2SAT 93–95
[2025-08-24 05:55] LABS: Basophils # (Auto) 0.1 Thou/mm3 (0.0-0.2); Basophils % (Auto) 1 % (0-2.5); Eosinophils # (Auto) 0.2 Thou/mm3 (0.0-0.5); Eosinophils % (Auto) 4 % (0-10); Hematocrit 33.7 % (36.0-46.0); Hemoglobin 11.2 g/dL (12.0-16.0); Immature Granulocytes Auto 0.01 Thou/mm3 (0.00-0.00); Lymphocytes # (Auto) 1.2 Thou/mm3 (1.0-4.8); Lymphocytes % (Auto) 20 % (10-50); Mean Corpuscular HGB Conc 33.2 g/dl (31.0-37.0); Mean Corpuscular Hemoglobin 33.1 pg (25.0-35.0); Mean Corpuscular Volume 100 fL (80-100); Monocytes # (Auto) 0.7 Thou/mm3 (0.0-0.8); Monocytes % (Auto) 12 % (0-12); Neutrophils # (Auto) 3.9 Thou/mm3 (1.8-7.7); Neutrophils % (Auto) 63 % (37-80); Nucleated Red Blood Cell # 0.00 Thou/mm3 (0.00-0.00); Nucleated Red Blood Cell % 0 /100 WBC (0); Platelet Count 185 Thou/mm3 (140-440); RDW Standard Deviation 53.7 fL (36.4-46.3); Red Blood Count 3.38 Miln/mm3 (4.00-5.20); White Blood Count 6.1 Thou/mm3 (3.6-11.0)
[2025-08-24 06:48] LABS: Alanine Aminotransferase 24 U/L (10-49); Albumin, Serum 3.6 gm/dL (3.4-4.8); Albumin/Globulin Ratio 1.6 (1.2-2.2); Alkaline Phosphatase 103 U/L (46-116); Anion Gap 12 (7-16); Aspartate Amino Transferase 19 U/L (0-34); BUN/Creatinine Ratio 14 Ratio (12-20); Bilirubin,Total 0.3 mg/dL (0.3-1.2); Blood Urea Nitrogen 41 mg/dL (9-23); Calcium 7.8 mg/dL (8.3-10.6); Calcium (Corrected) 8.1 mg/dL (8.5-10.1); Carbon Dioxide 25.0 mMol/L (20.0-31.0); Chloride 105 mMol/L (98-107); Creatinine (Component) 3.0 mg/dL (0.6-1.3); Estimated Creatinine Clearance 14.2 mL/min (>60); Globulin 2.3 gm/dL (2.3-3.5); Glucose 177 mg/dL (74-106); Magnesium 1.8 mg/dL (1.6-2.6); Osmolality,Calculated 297 (275-295); Phosphorous 3.4 mg/dL (2.4-5.1); Potassium 4.1 mMol/L (3.4-5.1); Sodium 142 mMol/L (136-145); Total Protein 5.9 gm/dL (5.7-8.2); eGFR 16 See Note
--- NOTE | 2025-08-24 08:47 | PD.RESPRO ---
Documentation for date of: 08/24/25 Subjective Subjective Interval history: History of present illness: 69-year-old female past medical history of hypertension, COPD on 2 L home oxygen, ESRD on dialysis 3 times a week for the past 3 months presented to the ED in the evening of 08/22/2025 with shortness of breath. She missed her most recent dialysis session on Thursday08/18/2025 due to not having a ride. She was found to have a blood pressure of 240/159 and crackles on physical exam. Past Medical History: as above, right breast cancer s/p mastectomy Family History: noncontributory Surgical History: c section Social History: [id number] smoking history, quit. 30 years of 2 drinks daily alcohol use, quit. Uses meth twice per month. Current Medications: Vitamin B supplement, bumetanide 1 mg daily, dicyclomine 20 mg 4 times daily as needed, Trelegy daily, valsartan 40 mg twice daily (pending official med rec) Allergies: iodone (rash) Admitted for hypertensive urgency. Nephrology consulted for ESRD with need for dialysis. 08/23/25: Patient seen and assessed at bedside. No complaints, denies shortness of breath or abdominal pain. Reports she has missed last 2 dialysis sessions due to lack of transport. Unable to remember when her last session was. Systolics improved to 120s this morning s/p clonidine, Bumex, and valsartan overnight. Potassium increased to 4.0 from 3.7. BUN 64, Cr 4.1 (from 3.9, baseline 2.5-3.6), phos 6.0. Plan for dialysis this afternoon. Will re-evaluate renal panel tomorrow if patient will require another session. 08/24/25: Patient seen and assessed at bedside. No complaints, denies shortness of breath. Removed 1.95 L from dialysis yesterday, session stopped prematurely due to cramps. Electrolytes improved. Per primary team, patient is medically stable for discharge today. Educated patient the importance of adhering to her dialysis schedule, instructed her to go to outpatient dialysis center either later today or tomorrow. Exam Vital Signs Temp Pulse Resp BP Pulse Ox O2 Del Method O2 Flow Rate 98.1 F 65 20 149/90 H 95 Room Air 2 08/24/25 08:00 08/24/25 08:00 08/24/25 08:00 08/24/25 08:00 08/24/25 08:00 08/24/25 08:00 08/23/25 08:00 Narrative Exam Physical Exam General: Awake and in no acute distress. Conversational and non-toxic appearing. Cachetic. HEENT: Normocephalic, atraumatic, mucous membranes dry. Heart: Regular rate and rhythm, normal S1 and S2, no murmurs appreciated. Lungs: Clear to auscultation with no wheezing or crackles. Abdomen: Soft, nondistended, nontender, positive bowel sounds. No guarding or rebound tenderness. Neurologic: Alert and oriented x3, no gross neurological deficit, and patient able to move all 4 extremities. Extremities: No edema. Skin: No rash or ecchymoses. Objective Labs 08/24/25 05:20 08/24/25 05:20 Labs: Laboratory Results - last 24 hr 08/23/25 08/24/25 04:58 05:20 WBC 6.1 RBC 3.38 L Hgb 11.2 L Hct 33.7 L MCV 100 MCH 33.1 MCHC 33.2 RDW Std Deviation 53.7 H Plt Count 185 D Neut % (Auto) 63 Lymph % (Auto) 20 [place] % (Auto) 12 Eos % (Auto) 4 Baso % (Auto) 1 Neut # (Auto) 3.9 Lymph # (Auto) 1.2 [place] # (Auto) 0.7 Eos # (Auto) 0.2 Baso # (Auto) 0.1 Immature Gran # (Auto) 0.01 H Absolute Nucleated RBC 0.00 Immature Gran % 0 Nucleated RBC % 0 Sodium 142 Potassium 4.1 Chloride 105 Carbon Dioxide 25.0 Anion Gap 12 BUN 41 H Creatinine 3.0 H D Estim Creat Clear Calc 14.2 L eGFR 16 L BUN/Creatinine Ratio 14 Glucose 177 H D Calculated Osmolality 297 H Calcium 7.8 L Corrected Calcium 8.1 L Phosphorus 3.4 Magnesium 1.8 Total Bilirubin 0.3 AST 19 ALT 24 Alkaline Phosphatase 103 Total Protein 5.9 Albumin 3.6 Globulin 2.3 Albumin/Globulin Ratio 1.6 Hepatitis A IgM Ab Non Reactive Hep Bs Antigen Non Reactive Hep Bs Antibody NonReact(Not Immune) L Hep B Core IgM Ab Non Reactive Hepatitis C Antibody Non Reactive Quality Measures Quality Measures VTE prophylaxis Advance care planning discussed with:: patient Assessment & Plan Assessment Current Active Medications: Generic Name Dose Route Start Last Admin Trade Name Freq PRN Reason Stop Dose Admin Acetaminophen 650 mg 08/23/25 14:10 Acetaminophen 325 Mg Tablet PO 09/21/25 21:59 Q6H PRN Fever >100.4 Albuterol/Ipratropium 3 ml 08/22/25 22:02 Albuterol/Ipratropium (Duoneb) Rt Dee 3 Ml Nebu INH 09/21/25 22:01 Q2HR PRN SHORTNESS OF BREATH OR WHEEZE Clonidine 0.2 mg 08/23/25 09:00 08/23/25 20:33 Clonidine Hcl 0.1 Mg Tablet PO 09/22/25 08:59 0.2 mg BID KENNEDY Administration Heparin Sodium (Porcine) 5,000 unit 08/22/25 22:00 08/24/25 05:53 Heparin Sod Inj 5000 Unit/Ml Vial SC 09/05/25 21:59 Not Given Q8HR KENNEDY Heparin Sodium (Porcine) 3,800 unit 08/23/25 16:06 Heparin Sod Inj 1000 Unit/Ml Vial 10 Ml INDWELLCAT 09/06/25 16:05 X1 PRN DIALYSIS Magnesium Sulfate 2 gm in 50 mls @ 25 mls/hr 08/24/25 07:47 Magnesium Sulfate Ivpb IV 08/24/25 09:46 X1 ONE Nifedipine 60 mg 08/23/25 09:00 08/23/25 08:38 Nifedipine Xl 30 Mg Tabcr PO 09/22/25 08:59 Not Given QDAY KENNEDY Ondansetron HCl 4 mg 08/22/25 22:00 Ondansetron Inj 2 Mg/Ml Inj 2 Ml IVP 09/21/25 21:59 Q6H PRN NAUSEA OR VOMITING Protocol Pantoprazole Sodium 40 mg 08/23/25 09:00 08/23/25 08:36 Pantoprazole 40 Mg Tablet PO 09/22/25 08:59 40 mg QDAY KENNEDY Administration Sennosides 1 tab 08/22/25 22:00 Senna Tablet PO 09/21/25 21:59 QDAY PRN constipation Protocol Valsartan 40 mg 08/23/25 09:00 08/23/25 20:33 Valsartan 40 Mg Tablet PO 09/22/25 08:59 40 mg BID KENNEDY Administration Vitamin B Complex/Vit C/Folic Acid 1 tab 08/23/25 09:00 08/23/25 09:47 Vitamin B Complex Tablet PO 09/22/25 08:59 1 tab QDAY KENNEDY Administration Plan Patient is a 69-year-old female past medical history of hypertension, COPD on 2 L home oxygen, ESRD on dialysis MWF, right breast cancer s/p mastectomy, meth use admitted on 08/22/25 for emergent dialysis, nephrology consulted for ESRD requiring emergent dialysis. #ESRD 2/2 cardiorenal syndrome #On dialysis Thursday/Thursday - Per chart review, patient has been admitted at least twice in the past 4 months for emergent dialysis. Patient has hx of being non adherent to HD sessions and outpatient follow up due to lack of transportation. - Was previously on Thursday/ schedule but recently changed to Thursday/Thursday. - Presented again on 08/22 for shortness of breath requesting dialysis - BUN 56 -> 64. Cr 3.9 -> 4.1 (baseline 2.8-3.7). Phosphorus 5.6 -> 6. - Of note, bicarb 18.5, anion gap 16 on admission. - Chest x-ray showed moderate CHF, prominent central vascular congestion and prominent bilateral perihilar edema. 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 - S/p HD session 08/23: removed 1.95 L, session discontinued due to cramps Plan: - Patient is medically stable for discharge per primary team - Educated patient on importance of adhering to dialysis schedule. Has transport provided by rehab center. Instructed her to go to outpatient dialysis center either later today or tomorrow to adhere to Thursday/Thursday schedule. 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 Pulido. Vivienne Soriano DO, PGY-1 Attending Provider Attestation/Addendum Patient currently seen and examined with resident physician Dr. Soriano. Note reviewed, agree with findings and recommendations. Patient currently seen in telemetry. Shortness of breath much better. Next dialysis scheduled for Thursday
[2025-08-24] MEDS: VITAMIN B COMPLEX TABLET 1 TAB PO (09:13)
[2025-08-24] MEDS: NIFEdipine XL 30 MG TABCR 60 MG PO (09:13)
[2025-08-24] MEDS: PANTOPRAZOLE 40 MG TABLET PO (09:13)
[2025-08-24] MEDS: VALSARTAN 40 MG TABLET PO (09:13)
[2025-08-24] MEDS: MAGNESIUM OXIDE 400 MG TABLET PO (09:18)
--- NOTE | 2025-08-24 14:22 | ESDS_ITS ---
<Statement entered by Jimy Gimenez MD - 09/04/25 09:18> I reviewed above note and agree with findings and plans. I have also personally examined the patient with medicine team and went over assessment and plan with medical team including internal controls consultant and resident physician. <Statement entered by Anuel Thomas MD - 08/24/25 14:31> Patient was examined and case was reviewed with team including attending physician. Note reviewed, I agree with most of its contents and agree with the patient's care as documented by Dr. Vishnu Thomas MD PGY-2 Planned Discharge Date 08/24/25 DS: Providers Provider Date of admission: 08/22/25 22:10 Primary care physician: Hugo Thomas MD Admitting Provider: Lars Lima MD Attending Provider on Admission: Jimy Gimenez MD Consults: 08/22/25 21:25 Consult to Nephrology Stat Comment: missed dialysis wednesday 08/22 Consulting Provider: Victoria Pulido 08/23/25 01:02 Referral Infection Control Routine Comment: Reason for Infection Control Referral: Current Dialysis Patient Health Equity Referral - Transportation Routine Comment: Positive screening for transportation needs. Attending Provider on DC: Jimy Gimenez MD Discharging Provider: Ailyn Mares DO Anticipated date of discharge: 08/24/25 DS: Diagnosis Problem List Completed Was Problem List Reviewed/Reconciled?: Yes Hospital Course Hospital Course Hospital course: 69-year-old female with a significant medical history of hypertension, COPD, and ESRD on hemodialysis, presented to the emergency department on 08/22/2025 with shortness of breath after missing her last two dialysis sessions due to lack of transportation. Upon admission, her blood pressure was severely elevated at 240/159 mmHg, and she exhibited signs of respiratory distress with crackles on exam. Labs showed elevated BUN (56), creatinine (3.9), and eGFR (12), consistent with ESRD. The patient was admitted for hypertensive urgency and dialysis. She was initially treated with Valsartan, Clonidine, and Bumetanide, with significant improvement in her blood pressure over the next few hours and respiratory status. Chest x-ray revealed central vascular congestion and bilateral perihilar edema, most likely secondary to missed dialysis. Patient was seen by nephrology, and emergent dialysis was performed on 08/23/2025. The patient was closely monitored for fluid status and respiratory function. Patient is medically and physically stable for discharge. Discharge Diagnoses: #Hypertensive urgency #End-stage renal disease on hemodialysis #Chronic obstructive pulmonary disease #History of hypertension #History of heart failure with reduced ejection fraction (HFrEF) Discharge Plan: Follow up with primary care physician within 1 week of discharge. Continue with your hemodialysis as scheduled. Follow up with your carbon cleaner within 2 weeks of discharge. Should any symptoms recur or worsen patient is instructed to return to the ED. Case discussed with my senior resident Dr. Quincy Thomas. Case discussed with my attending Dr. Gimenez. Ailyn Mares DO PGY 1 Status at Discharge Overall status at discharge: patient is back to baseline Time Spent with Patient Time attestation: Total time spent providing and/or coordinating discharge services: Time spent: Greater than 30 minutes Exam Vital Signs Temp Pulse Resp BP Pulse Ox O2 Del Method O2 Flow Rate 98.1 F 65 20 149/90 H 95 Room Air 2 08/24/25 08:00 08/24/25 09:13 08/24/25 09:00 08/24/25 09:13 08/24/25 08:00 08/24/25 08:00 08/23/25 08:00 Narrative Exam Physical Exam General: Awake and in no acute distress. Conversational and non-toxic appearing. HEENT: Normocephalic, atraumatic, mucous membranes moist. Heart: Regular rate and rhythm, no murmurs. Non-labored respirations, symmetric chest rise, no use of accessory muscles. Lungs: Clear to auscultation with no wheezing or crackles. Abdomen: Soft, nondistended, nontender. No guarding or rebound tenderness. Neurologic: Alert and oriented x3, no gross neurological deficit, and patient able to move all 4 extremities. Extremities: No edema. Skin: No rash or ecchymoses. Psychiatric: Cooperative, appropriate mood and affect Discharge Plan Plan Patient Disposition: HOME (Self Care) Patient condition on transfer: Stable Care Plan Goals: Follow up with primary care physician within 1 week of discharge Continue with your hemodialysis as scheduled Follow up with your carbon cleaner within 2 weeks of discharge Should any symptoms recur or worsen patient is instructed to return to the ED. Prescriptions/Referrals Prescriptions/Med Rec: Continued valsartan 40 mg tablet 40 mg PO BID Qty: 60 0RF bumetanide 1 mg tablet 1 mg PO QDAY Qty: 14 0RF Trelegy Ellipta 100-62.5-25 mcg blister with device 1 inh inhalation QDAY Qty: 28 0RF carvedilol 12.5 mg tablet 12.5 mg PO BID Patient Comments: TAKE 1 TABLET BY MOUTH TWICE DAILY FOR 10 DAYS WITH FOOD ORAL TWICE A DAY clonidine HCl 0.2 mg tablet 0.2 mg PO Q12H Patient Comments: TAKE 1 TABLET BY MOUTH TWICE A DAY Referrals: Hugo Thomas MD [Primary Care Provider, Family Practice] Patient/Caregiver Discharge Instructions Print Language: Paraguayan Stand Alone Forms: Fern Award Info., Patient Portal Info Letter, Work/Release Restrictions Discharge Order Discharge Orders: Discharge (Routine); Ordered 08/24/25 Ordered By: Jacquie Eduardo Quality Discharge Quality Measures VTE prophylaxis
== END 2025-08-24 14:00 | disposition home or self-care (01) ==
LOC: SERX 22:25 → SERHOLD 22:25 → S2NX 08-23 06:14
PROVIDERS: Internal Medicine; Admitting Provider Internal Medicine; PCP Family Medicine; Visit Provider Internal Medicine
DX: I16.0 Hypertensive urgency (principal); I13.2 Hypertensive heart and chronic kidney disease with heart failure and with stage 5 chronic kidney disease, or end stage renal disease; I50.42 Chronic combined systolic (congestive) and diastolic (congestive) heart failure; N18.6 End stage renal disease; Z99.2 Dependence on renal dialysis; J44.9 Chronic obstructive pulmonary disease, unspecified; Z99.81 Dependence on supplemental oxygen; Z91.158 Patient's noncompliance with renal dialysis for other reason
CPT/HCPCS: 36415; 71045; 80053; 80074; 83735; 84100; 84443; 85025; 86706; 87081; 90935; 93005; 96365; 96366; 96372; 96375; 99283; G0378; J1644; J3475; J3490; A9270; G0257

== ENCOUNTER 2025-08-30 07:51 | Inpatient (IN) | payer MEDICARE, MEDICAID, SELFPAY ==
[2025-08-30] VITALS (30 sets, daily range): BP systolic 133–239; BP diastolic 73–142; PULSE 66–92; RESP 18–95; TEMP 36.6–36.9; O2SAT 92–97; BMI 19.6
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
--- NOTE | 2025-08-30 08:31 | XR_ITS ---
Portable upright chest film on 08/30/2025 at 8:48 a.m. Comparison study 08/22/2025 CLINICAL INDICATION: Chest pain difficulty breathing for 2 days history of emphysema FINDINGS: There is significant cardiomegaly unchanged. On the prior film the patient showed evidence of congestive heart failure in the lungs right greater than left. This has improved since the last chest film, however there are still prominent curly B lines at the lateral base of both lower lobes indicating mild lymphatic congestion. In addition, the patient has a large breast implant on the right, which does create abnormal increased opacification over the lower half the right lung. This makes it difficult to exclude the possibility that there still might be some increased parenchymal consolidation in the right lower lobe. There is some fluid noted in the minor fissure on the right. Surgical clips are seen in the right axilla. There is a horizontal thin linear strand of discoid atelectasis in the lower third of the left lung which was not present on the previous chest film. There is major end-stage degenerative joint disease in the right shoulder joint. There is a central venous port catheter again noted in good position IMPRESSION: 1. Major cardiomegaly unchanged 2. On the previous chest film the patient was then CHF. That has definitely improved although multiple findings noted above suggest that there is still mild congestion present with prominent curly B lines along the lateral margin of the lower lobes, and possibly some residual increased consolidation in the base of the right lower lobe although this is obscured by the large surgical breast implant there is definite fluid within the minor fissure on the right which was not present on the previous study. 3. See above regarding some other finding
--- NOTE | 2025-08-30 08:32 | EKG_ITS ---
[facility] Test Date: 2025-08-30 Pat Name: CHEMA DIAZ Department: Room: - Gender: Female Switch Operator: : 1955 Requested By: Jensen Riddle Order Number: [id number] Reading MD: Jensen Riddle Measurements Intervals Morgan Rate: 80 P: 67 IA: 177 QRS: -24 QRSD: 98 T: 118 QT: 403 QTc: 465 Interpretive Statements SINUS RHYTHM BORDERLINE LEFT AXIS DEVIATION [QRS AXIS < -20] LEFT VENTRICULAR HYPERTROPHY AND ST-T CHANGE [VOLTAGE CRITERIA PLUS ST/T ABNORMALITY] Compared to ECG 08/22/2025 20:07:22 Atrial abnormality no longer present Myocardial infarct finding no longer present ST (T wave) deviation still present /store/S0/[id number]/ecg/[id number].pdf
[2025-08-30] MEDS: hydrALAZINE INJ 20 MG/ML VIAL IVP (09:10)
[2025-08-30] MEDS: BUMETANIDE INJ 0.25 MG/ML VIAL 4 ML 2 MG IVP (09:11)
[2025-08-30 09:25] LABS: Basophils # (Auto) 0.1 Thou/mm3 (0.0-0.2); Basophils % (Auto) 1 % (0-2.5); Eosinophils # (Auto) 0.2 Thou/mm3 (0.0-0.5); Eosinophils % (Auto) 2 % (0-10); Hematocrit 35.0 % (36.0-46.0); Hemoglobin 11.4 g/dL (12.0-16.0); Immature Granulocytes Auto 0.02 Thou/mm3 (0.00-0.00); Lymphocytes # (Auto) 0.8 Thou/mm3 (1.0-4.8); Lymphocytes % (Auto) 12 % (10-50); Mean Corpuscular HGB Conc 32.6 g/dl (31.0-37.0); Mean Corpuscular Hemoglobin 33.1 pg (25.0-35.0); Mean Corpuscular Volume 102 fL (80-100); Monocytes # (Auto) 0.4 Thou/mm3 (0.0-0.8); Monocytes % (Auto) 6 % (0-12); Neutrophils # (Auto) 5.3 Thou/mm3 (1.8-7.7); Neutrophils % (Auto) 78 % (37-80); Nucleated Red Blood Cell # 0.00 Thou/mm3 (0.00-0.00); Nucleated Red Blood Cell % 0 /100 WBC (0); Platelet Count 236 Thou/mm3 (140-440); RDW Standard Deviation 55.5 fL (36.4-46.3); Red Blood Count 3.44 Miln/mm3 (4.00-5.20); White Blood Count 6.8 Thou/mm3 (3.6-11.0)
[2025-08-30 09:48] LABS: Alanine Aminotransferase 71 U/L (10-49); Albumin, Serum 4.1 gm/dL (3.4-4.8); Albumin/Globulin Ratio 1.6 (1.2-2.2); Alkaline Phosphatase 148 U/L (46-116); Anion Gap 13 (7-16); Aspartate Amino Transferase 86 U/L (0-34); BUN/Creatinine Ratio 16 Ratio (12-20); Bilirubin,Total 0.2 mg/dL (0.3-1.2); Blood Urea Nitrogen 63 mg/dL (9-23); Calcium 8.6 mg/dL (8.3-10.6); Calcium (Corrected) 8.6 mg/dL (8.5-10.1); Carbon Dioxide 24.2 mMol/L (20.0-31.0); Chloride 107 mMol/L (98-107); Creatinine (Component) 3.9 mg/dL (0.6-1.3); Estimated Creatinine Clearance 10.5 mL/min (>60); Globulin 2.6 gm/dL (2.3-3.5); Glucose 170 mg/dL (74-106); Osmolality,Calculated 308 (275-295); Potassium 4.6 mMol/L (3.4-5.1); Sodium 144 mMol/L (136-145); Total Protein 6.7 gm/dL (5.7-8.2); eGFR 12 See Note
[2025-08-30 09:55] LABS: Troponin I 0.103 ng/mL (0.0-0.045)
[2025-08-30 10:23] LABS: B-Type Natriuretic Peptide > 3280 pg/mL (0-100)
[2025-08-30 10:27] LABS: Collection Type, Urine Voided
[2025-08-30 10:34] LABS: Bilirubin,Urine Negative (Negative); Blood,Urine Trace (Negative); Clarity,Urine Clear (Clear/Hazy); Color,Urine Colorless (Lt Yel-Yel); Glucose, Urine 3+ (Negative); Ketones,Urine Negative (Negative); Leukocyte Esterase,Urine Negative (Negative); Nitrite,Urine Negative (Negative); PH,Urine 7.0 (5.0-7.0); Protein,Urine 2+ (Neg - Trace); RBC,Urine 2 /hpf (0-3); Specific Gravity,Urine 1.011 (1.001-1.035); Squamous Epithelial Cell,Urine 3 /hpf (0-5); Urobilinogen,Urine Negative mg/dL (0.0-1.0); WBC,Urine 1 /hpf (0-5)
[2025-08-30 10:47] LABS: Amphetamine/Methamp Scrn,U Positive (Negative); Barbiturate Screen,Urine Negative (Negative); Benzodiazepines Screen,Urine Negative (Negative); Benzoylecgonine Screen, Ur Negative (Negative); Fentanyl Screen,Urine Negative (Negative); Opiate Screen,Urine Negative (Negative); THC Screen,Urine Negative (Negative)
--- NOTE | 2025-08-30 11:44 | PC.SS ---
SS follow up note; SS attempted to meet with patient, however patient was in dialysis at the time.
--- NOTE | 2025-08-30 13:52 | PD.RESHP ---
Documentation for date of: 08/30/25 Exam Vital Signs Temp Pulse Resp BP Pulse Ox O2 Del Method 98.2 F 80 18 164/88 H 96 Room Air 08/30/25 10:56 08/30/25 13:45 08/30/25 10:56 08/30/25 13:45 08/30/25 10:56 08/30/25 10:07 Results: Labs 08/30/25 09:07 08/30/25 09:07 Labs: Short CBC 08/30/25 Range/Units 09:07 WBC 6.8 (3.6-11.0) Thou/mm3 Hgb 11.4 L (12.0-16.0) g/dL Hct 35.0 L (36.0-46.0) % Plt Count 236 D (140-440) Thou/mm3 BMP 08/30/25 09:07 Sodium 144 Potassium 4.6 Chloride 107 Carbon Dioxide 24.2 BUN 63 H Creatinine 3.9 H D Glucose 170 H Calcium 8.6 Cardiac Enzymes 08/30/25 Range/Units 09:07 Troponin I 0.103 H* (0.0-0.045) ng/mL Liver Function 08/30/25 Range/Units 09:07 Total Bilirubin 0.2 L (0.3-1.2) mg/dL AST 86 H (0-34) U/L ALT 71 H (10-49) U/L Alkaline Phosphatase 148 H (46-116) U/L Albumin 4.1 (3.4-4.8) gm/dL Urine 08/30/25 Range/Units 10:17 Urine Color Colorless A (Lt Yel-Yel) Urine Clarity Clear (Clear/Hazy) Urine pH 7.0 (5.0-7.0) Ur Specific [place] 1.011 (1.001-1.035) Urine Protein 2+ A (Neg - Trace) Urine Glucose (UA) 3+ A (Negative) Quality Measures Quality Measures none Medications Home Medications and Allergies Home Medications ?Medication ?Instructions ?Recorded ?Confirmed ?Type carvedilol 12.5 mg tablet 12.5 mg PO BID 08/23/25 08/23/25 History clonidine HCl 0.2 mg tablet 0.2 mg PO Q12H 08/23/25 08/23/25 History Allergies Allergy/AdvReac Type Severity Reaction Status Date / Time iodine Allergy Severe Rash Verified 07/28/25 21:18 Visit Medications Heparin Sodium (Porcine) (Heparin Sod Inj 1000 Unit/Ml Vial 10 Ml) 3,800 unit INDWELLCAT X1 PRN PRN Reason: DIALYSIS Stop: 09/01/25 13:27 Albumin Human (Albuminex 25% Ivpb) 25 gm in 100 mls @ 100 mls/hr IV Q30MIN PRN PRN Reason: DIALYSIS Discontinued Medications Bumetanide (Bumetanide Inj 0.25 Mg/Ml Vial 4 Ml) 2 mg IVP X1 ONE Stop: 08/30/25 08:32 Last Admin: 08/30/25 09:11 Dose: 2 mg Hydralazine HCl (Hydralazine Inj 20 Mg/Ml Vial) 20 mg IVP X1 ONE Stop: 08/30/25 08:32 Last Admin: 08/30/25 09:10 Dose: 20 mg Assessment & Plan Plan Patient is a 69-year-old female past medical history of hypertension, COPD on 2 L home oxygen, ESRD on dialysis MWF, right breast cancer s/p mastectomy, meth use admitted on 08/30/25 for emergent dialysis, nephrology consulted for ESRD requiring emergent dialysis. #ESRD 2/2 cardiorenal syndrome #On dialysis Thursday/Thursday - Presents again today due to missed last two dialysis session since discharge 08/24. Plan: - - Educated patient on importance of adhering to dialysis schedule. Has transport provided by rehab center. Instructed her to go to outpatient dialysis center either later today or tomorrow to adhere to Thursday/Thursday schedule. 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 Pulido. Vivienne Soriano DO, PGY-1
[2025-08-30] MEDS: HEPARIN SOD INJ 1000 UNIT/ML VIAL 10 ML 3800 UNIT INDWELLCAT (14:22)
--- NOTE | 2025-08-30 15:50 | ESHP_ITS ---
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 States that she has not been able to go to her appointments due to transportation issues. In ED, initial vitals significant for BP of 231/135, pulse 91, afebrile, and on room air. CBC showing chronic normocytic/macrocytic anemia. CHEM panel consistent with ESRD elevated LFTs, alk phos, troponin 0.103, BNP greater than 3000. UTOX positive for amphetamine. CXR showing cardiomegaly and vascular congestion. Nephrology was consulted and patient was then taken for dialysis and tolerated well. Regarding her hypertensive emergency evidenced by elevated troponin, resumed home medications of bumex 1 mg, coreg 12.5 mg BID, valsartan 40 mg BID and as need labetolol. Will contior to monitor while here in house and addiction social worker consulted given volatile living conditions. ----- Note reviewed and agree with care plan as documented. Please refer to the note below for further details. Plan discussed with attending physician Dr. Mirna Sanchez MD PGY-2 Internal Medicine Documentation for date of: 08/30/25 HPI History of Present Illness History of present illness: 69 year old female w/ a PMH significant for HTN, COPD, ESRD on hemodialysis MWFS, methamphetamine use, HFrEF(40-50% per ECHO 10/2024) breast cancer s/p R mastectomy w/ implant and housing insecurity is here for dialysis and complaints of shortness of breath. Pt endorses missing dialysis for the past three days due to a lack of transportation. Pt's vitals in ED were significant for hypertensive emergency, 231/135, and labs were significant for a troponin of 0.103 ng/mL BNP 3280pg/mL. Patient was given Bumex 2, Hydralazine 20 which improved pressure to 176/96. Patient admitted for hypertensive emergency +/- heart failure exacerbation. On presentation, Ms. Freed is alert and oriented x4, GCS 15. She states that she lives in a house with friends, and that she is unable to receive transportation to her dialysis appointments, last of which was 3/4 days ago. Additionally patient has neglected to take home medications, including clonidine, carvedilol, bumetanide and valsartan; she states that she has the medication at home but forget so take them. She does not endorse shortness of breath on examination, and no wheezing/crackles are appreciated on auscultation. CXR 0848 reveals suspicion for bilateral pleural effusions/consolidation. Regarding her heart failure, a last echocardiogram done at [facility] 10/2024 revealed LVEF 40-50% w/ mild global hypokinesis. Patient admits to a long-time use of methamphetamine, with last use two mornings ago. Ms. Freed is understanding of the plan for admission and further evaluation on medicine service. Home medications restarted. Follow up tropoinin from an initial 0.103 at 0907 revealed 0.118 at 1517. Follow up troponin ordered for 2100. Ongoing medical issues for Ms. Freed are extensive and not mutually exclusive; as such, these include Hypertensive emergency evidenced by elevated troponin, BNP, as well as electrolyte abnormalities(missed dialysis), CHF exacerbation. Patient admitted for further workup and stabilization. Exam Vital Signs Temp Pulse Resp BP Pulse Ox O2 Del Method 98.4 F 67 21 H 158/93 H 97 Room Air 08/30/25 14:19 08/30/25 14:52 08/30/25 14:52 08/30/25 14:52 08/30/25 14:52 08/30/25 14:52 Narrative Exam General: alert and oriented to self/place/year, no acute distress, able to speak full sentences; not endorsing shortness of breath on exam HEENT: NC/AT, mucous membranes moist, bilateral sclera anicteric Cardiovascular: regular rate and rhythm, S1/S2 present, no murmurs appreciated Pulmonary: clear to auscultation bilaterally, no rales/rhonchi/wheezes Abdominal: soft, nontender, present bowel sounds Musculoskeletal: no peripheral edema. Skin: Warm, well-perfused Results: Labs 08/31/25 03:29 08/31/25 03:29 Labs: Short CBC 08/30/25 Range/Units 09:07 WBC 6.8 (3.6-11.0) Thou/mm3 Hgb 11.4 L (12.0-16.0) g/dL Hct 35.0 L (36.0-46.0) % Plt Count 236 D (140-440) Thou/mm3 BMP 08/30/25 09:07 Sodium 144 Potassium 4.6 Chloride 107 Carbon Dioxide 24.2 BUN 63 H Creatinine 3.9 H D Glucose 170 H Calcium 8.6 Cardiac Enzymes 08/30/25 Range/Units 09:07 Troponin I 0.103 H* (0.0-0.045) ng/mL Liver Function 08/30/25 Range/Units 09:07 Total Bilirubin 0.2 L (0.3-1.2) mg/dL AST 86 H (0-34) U/L ALT 71 H (10-49) U/L Alkaline Phosphatase 148 H (46-116) U/L Albumin 4.1 (3.4-4.8) gm/dL Urine 08/30/25 Range/Units 10:17 Urine Color Colorless A (Lt Yel-Yel) Urine Clarity Clear (Clear/Hazy) Urine pH 7.0 (5.0-7.0) Ur Specific [place]wey 1.011 (1.001-1.035) Urine Protein 2+ A (Neg - Trace) Urine Glucose (UA) 3+ A (Negative) Quality Measures Quality Measures none Advance care planning discussed with:: patient Medications Home Medications and Allergies Home Medications ?Medication ?Instructions ?Recorded ?Confirmed ?Type carvedilol 12.5 mg tablet 12.5 mg PO BID 08/23/2512/13 History clonidine HCl 0.2 mg tablet 0.2 mg PO Q12H 08/23/25 History Allergies Allergy/AdvReac Type Severity Reaction Status Date / Time iodine Allergy Severe Rash Verified 07/28/25 21:18 Visit Medications Acetaminophen (Acetaminophen 325 Mg Tablet) 650 mg PO Q6H PRN PRN Reason: Fever >100.4 Stop: 09/29/25 14:10 Albuterol/Ipratropium (Albuterol/Ipratropium (Duoneb) Rt Dee 3 Ml Nebu) 3 ml INH Q8HRRT KENNEDY Stop: 09/29/25 14:59 Carvedilol (Carvedilol 12.5 Mg Tablet) 12.5 mg PO QDAY [facility] Stop: 09/30/25 08:59 Clonidine (Clonidine Hcl 0.1 Mg Tablet) 0.2 mg PO BID [facility] Stop: 10/26/25 20:59 Heparin Sodium (Porcine) (Heparin Sod Inj 1000 Unit/Ml Vial 10 Ml) 3,800 unit INDWELLCAT X1 PRN PRN Reason: DIALYSIS Stop: 09/01/25 13:27 Last Admin: 08/30/25 14:22 Dose: 3,800 unit Albumin Human (Albuminex 25% Ivpb) 25 gm in 100 mls @ 100 mls/hr IV Q30MIN PRN PRN Reason: DIALYSIS Labetalol HCl (Labetalol Inj 5 Mg/Ml Vial 4 Ml) 10 mg IVP Q10M PRN; Protocol PRN Reason: Blood Pressure - High Stop: 09/29/25 14:25 Ondansetron HCl (Ondansetron Inj 2 Mg/Ml Inj 2 Ml) 4 mg IVP Q6H PRN; Protocol PRN Reason: NAUSEA OR VOMITING Stop: 09/29/25 14:10 Pantoprazole Sodium (Pantoprazole 40 Mg Tablet) 40 mg PO QDAY [facility] Stop: 09/30/25 08:59 Discontinued Medications Bumetanide (Bumetanide Inj 0.25 Mg/Ml Vial 4 Ml) 2 mg IVP X1 ONE Stop: 08/30/25 08:32 Last Admin: 08/30/25 09:11 Dose: 2 mg Bumetanide (Bumetanide 0.5 Mg Tablet) 1 mg PO X1 ONE Stop: 08/30/25 14:27 Hydralazine HCl (Hydralazine Inj 20 Mg/Ml Vial) 20 mg IVP X1 ONE Stop: 08/30/25 08:32 Last Admin: 08/30/25 09:10 Dose: 20 mg Valsartan (Valsartan 40 Mg Tablet) 40 mg PO X1 ONE Stop: 08/30/25 14:27 Assessment & Plan Plan 69-year-old female with 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 #Hypertensive emergency #History of hypertension #NSTEMI type II/demand ischemia presents with shortness of breath, headache on home medication regimen, nonadherent CXR 08/30 = R pleural collection/consolidation ddx = CHF exacerbation >>>>>>pneumonia >>>>>>NSTEMI type II WBC WNL, Afebrile EKG normal sinus rhythm, no ST elevations Initial troponin 0.103, repeat 0.118 Has not endorsed chest pain, nausea, abdominal pain or other symptoms Initial BP 231/135 +/- headache Hx of medication noncompliance Tx w/ Bumex and hydralazine = therapeutic Creatinine 3.9 -Resume home medications: -Bumetanide 1mg PO q24h -Carvedilol 12.5 mg PO BID -Valsartan 40mg PO BID -Clonidine 0.2 mg BID -Repeat Troponin 2100 08/30 -PRN labetalol 10mg for SBP >180, DBP >100 #ESRD (M/W/F/Sat) on hemodialysis eGFR baseline 12- baseline creatinine ~3.5 Dialysis MWFS Hx of noncompliance with medical treatment -Follow up labs s/p dialysis -Daily CBC CMP Mg Phos -Follow up w/ nephrology #HFmrEF (EF 45-50%, 10/2024) last ECHO 10/2024 LVEF 40-50% w/ mild global hypokinesis + severe bilateral atrial dilation -Bumetanide, coreg, and valsartan as above as part of GDMT #COPD extensive smoking history no wheezing nor crackles heard on pulmonary auscultation on initial exam On home prescription of Trelegy Ellipta -Duonebs 3ml q8H PRN #Methamphetamine use -Counseled patient on dangers and consequences of repeated use, patient demonstrated understanding -special services director requested Hospital management: Disposition: Admission for blood pressure management and dialysis Fluids: n/a Diet: Renal diet Lines: PIV DVT prophylaxis: SCD's CODE STATUS: full code Patient seen and discussed with attending physician Dr. Spike Bradley and senior resident Dr. Iain Juarez MD PGY-1 Attending Provider Attestation/Addendum I have examined the patient, reviewed labs and imaging findings, discussed the case with the resident(s), and reviewed entered orders. I agree with the plan of care as outlined in this note, with these additional summaries/recommendations: After examination of the patient and review of the clinical data, I feel that this patient needs admission to the hospital for further treatment and evaluation. Patient is a 69-year-old female with a medical history of ESRD on hemodialysis M//Thursday/Thursday?, CHF, COPD, primary hypertension, history of breast cancer status post bilateral mastectomy, and substance abuse presents to [facility] emergency department on 08/30/2025 with chief complaint of missed dialysis sessions. Patient seen at bedside. Patient diagnosed with hypertensive emergency with systolic blood pressure into the 230s. Patient's home antihypertensives resumed and we will continue to adjust regimen as needed. Troponinemia present most likely secondary to demand ischemia/decreased clearance from ESRD. We will continue to monitor on telemetry. in house nephrology consulted for missed hemodialysis sessions and patient will go for emergent hemodialysis. Continue goal-directed medical therapy for CHF. Breathing treatments as needed for history of COPD. Counseled on substance abuse. Patient updated on the plan and in agreement. All questions answered to satisfaction. Please see residents note for additional details and management. Dr. Mirna MD
[2025-08-30 15:57] LABS: Troponin I 0.118 ng/mL (0.0-0.045)
[2025-08-30] MEDS: VALSARTAN 40 MG TABLET PO (16:23)
[2025-08-30] MEDS: BUMETANIDE 0.5 MG TABLET 1 MG PO (16:24)
--- NOTE | 2025-08-30 16:50 | ESCONSULT_ITS ---
HPI Data of Consult Consult date: 08/31/25 Requesting Physician: Spike Bradley MD Admitting Provider: Spike Bradley MD Attending Provider: Spike Bradlye MD Primary Care Provider: Rosy Vásquez OD Consult Narrative Reason for consult: ESRD History of present illness: History of present illness: 69 year old female w/ a PMH significant for HTN, COPD, ESRD on hemodialysis MWFS, methamphetamine use, HFrEF(40-50% per ECHO 10/2024) breast cancer s/p R mastectomy w/ implant and housing insecurity is here for dialysis and complaints of shortness of breath. Pt endorses missing dialysis for the past three days due to a lack of transportation. Pt's vitals in ED were significant for hypertensive emergency, 231/135, and labs were significant for a troponin of 0.103 ng/mL BNP 3280pg/mL. Patient was given Bumex 2, Hydralazine 20 which improved pressure to 176/96. Patient admitted for hypertensive emergency +/- heart failure exacerbation. On presentation, Ms. Freed is alert and oriented x4, GCS 15. She states that she lives in a house with friends, and that she is unable to receive transportation to her dialysis appointments, last of which was 3/4 days ago. Additionally patient has neglected to take home medications, including clonidine, carvedilol, bumetanide and valsartan; she states that she has the medication at home but forget so take them. She does not endorse shortness of breath on examination, and no wheezing/crackles are appreciated on auscultation. CXR 0848 reveals suspicion for bilateral pleural effusions/consolidation. Regarding her heart failure, a last echocardiogram done at [facility] 10/2024 revealed LVEF 40-50% w/ mild global hypokinesis. Patient admits to a long-time use of methamphetamine, with last use two mornings ago. Ms. Freed is understanding of the plan for admission and further evaluation on medicine service. Home medications restarted. Follow up tropoinin from an initial 0.103 at 0907 revealed 0.118 at 1517. Follow up troponin ordered for 2100. Ongoing medical issues for Ms. Freed are extensive and not mutually exclusive; as such, these include Hypertensive emergency evidenced by elevated troponin, BNP, as well as electrolyte abnormalities(missed dialysis), CHF exacerbation. Patient admitted for further workup and stabilization. Nephrology consulted for emergent dialysis. 08/30/25: Patient seen and examined at bedside in dialysis, had to end session early due to muscle cramps. Schedule when discharged was changed to Thursday//Thursday. Was present at dialysis on 08/26 but has not returned since. Reports she has not been able to get rides from [employer] which she would take to go to her sessions. Removed 2.6L today. Improvement in shortness of breath but on exam, still had mild bibasilar crackles. No lower extremity swelling. Plan for dialysis again tomorrow. cc:: cc: Spike Bradley MD Review of Systems Review of Systems Narrative Review of Systems: CONSTITUTIONAL: Patient denies any fever, chills. Complaining of fatigue HEENT: Denies any visual disturbances or hearing problems. CARDIOVASCULAR: Patient denies any chest pain. no shortness of breath, swelling in the lower extremities. PULMONARY: Patient denied any shortness of breath, cough. GASTROINTESTINAL: Patient denies any abdominal pain, constipation, nausea, vomiting, diarrhea. GENITOURINARY: Patient denies any urinary symptoms of burning or frequency or hematuria, denies any form in the urine. SKIN: Denies any rash. MUSCULOSKELETAL: Denies any muscular skeletal problems NEUROLOGICAL: Denies any neurological problems of strokes, seizures or confusion. Denies any memory problems. PSYCHIATRIC: Denies any depression or anxiety. LYMPHATICS : No lymphadenopathy Past Medical History Past Medical History NEUROLOGIC: Positive Head Trauma; Negative Neurological Disorders, Cerebrovascular Accident, Transient Ischemic Attacks (TIA), Dementia, Alzheimer's Disease, Parkinson's Disease, Brain Tumor, Meningitis, Seizures, Epilepsy, Multiple Sclerosis, Cerebral Palsy, Amyotrophic Lateral Sclerosis (ALS/Bernie Gehrig's), Guillain-Conroe Syndrome, Spina Bifida, Paralysis, Peripheral Neuropathy, Greco's Palsy, Subdural Hematoma, Migraine, Spinal Cord Injury or Traumatic Brain Injury CARDIAC: Positive Cardiac Disorders, Hypercholesterolemia, Congestive Heart Failure, Edema and Hypertension; Negative Myocardial Infarction, Cardiac Arrhythmia, Atrial Fibrillation, Angina, Heart Murmur, Coronary Artery Disease, Atherosclerotic Heart Disease, Peripheral Vascular Disease, Aneurysm, Congenital Heart Disease, Valvular Heart Disease, Rheumatic Fever, Cardiomyopathy, Pericarditis, Cellulitis, Deep Vein Thrombosis or Hypotension RESPIRATORY: Positive Chronic Obstructive Pulmonary Disease (COPD), Bronchitis and Pneumonia; Negative Respiratory Disorders, Asthma, Emphysema, Pulmonary Fibrosis, Cystic Fibrosis, Tuberculosis, Pulmonary Embolism, Pulmonary Edema or Sleep Apnea GASTROINTESTINAL: Positive Gastrointestinal Disorders, Gastrointestinal Bleed, Ulcer and Hemorrhoids; Negative Hepatitis, Cirrhosis, Pancreatitis, Celiac Disease, Gall Bladder Disease, Esophageal Varices, Espinal's Esophagus, Colitis, Ulcerative Colitis, Diverticulitis, Diverticulosis, Colorectal Cancer, Irritable Bowel, Crohn's Disease, Hiatal Hernia, Gastroesophageal Reflux Disease, Polyps or Obesity GENITOURINARY: Positive Genitourinary Disorders, Renal Disease and Dialysis; Negative Kidney Stones, Polycystic Kidney Disease, Neurogenic Bladder or Inguinal Hernia REPRODUCTIVE: Positive Breast Cancer (1992) and Previous Pregnancies; Negative Endometriosis, Genital Herpes, Gonorrhea, Pelvic Inflammatory Disease, Syphilis or Uterine Prolapse MUSCULOSKELETAL: Positive Musculoskeletal Disorders and Arthritis; Negative Muscular Dystrophy, Myasthenia Gravis, Marfan's Syndrome, Bone Cancer, Rheumatoid Arthritis, Osteoporosis, Degenerative Disk Disease, Gout, Scoliosis, Carpal Tunnel Syndrome, Fibromyalgia, Fractures, Degenerative Joint Disease, Osteomyelitis or Poliovirus ENT: Positive Head Trauma; Negative History of ENT Problems, Cataracts, Glaucoma, Blind, Retinal Detachment, Macular Degeneration, Ear Infection, Deafness or Eye Prosthesis ENDOCRINE: Negative Endocrine Disorders, Diabetes Mellitus Type 1, Diabetes Mellitus Type 2, Hypoglycemia, Robert's Syndrome, Jaziel's Disease, Hyperthyroidism, Hypothyroidism, Parathyroid Disease, Pituitary Disease, Systemic Lupus Erythematosus, Syndrome of Inappropriate Antidiuretic Hormone (SIADH), Adrenal Disease or Graves' Disease HEMATOLOGIC: Positive Blood Disorders and Anemia; Negative Leukemia, Hemophilia, Thalassemia, Sickle Cell Disease or Clotting Problems PSYCHO/SOCIAL: Positive Recreational Drug Use, Depression, Anxiety and Post Traumatic Stress Disorder; Negative Psychiatric Problems, Schizophrenia, Bipolar Disorder, Behavior Problems, Self-Mutilation, Attention Deficit Hyperactivity Disorder, Depression or Eating Disorder OTHER HISTORY: Positive Cosmetic Surgery (breast cancer surgery cosmetic. ), Falls, Blood Transfusions, Chicken Pox, Cancer and Breast Cancer (1992); Negative Hospitalization, Autoimmune Disease, Down Syndrome, Autism, Developmental Delay, Shingles, Blood Transfusion Reaction, Anesthesia Reactions, Organ Transplant, Chemotherapy, Radiation Therapy, Hyperbaric Therapy, MRSA, VRSA, Vancomycin-Resistant Enterococci, Human Immunodeficiency Virus (HIV), Measles, Mumps, Rubella (Kittitian Measles), Pertussis, Clostridium Difficile, Cervical Cancer, Colorectal Cancer, Lung Cancer or Ovarian Cancer Family History FAMILY HISTORY: Positive Family Gastrointestinal Problems and Family Cancer; Negative Family Respiratory Disorders, Family Cardiac Disorders, Family Surgery or Family Anesthesia Reaction Surgical History SURGICAL: Positive Mastectomy, Lumpectomy and Section; Negative Cardiac Surgery, Open Heart Surgery, Coronary Artery Bypass Graft, Valve Replacement, Vascular Surgery, Coronary Stent, Pacemaker, Angiogram, Endocrine Surgery, Thyroidectomy, Ear Surgery, Eye Surgery, Nose Surgery, Oral Surgery, Tonsillectomy, Adenoidectomy, Cochlear Implant, Corneal Transplant, Throat Surgery, Abdominal Surgery, Tracheostomy, Gastric Bypass Surgery, Gastrostomy, Bowel Surgery, Nephrectomy, Bladder Sling, Ureteral Stent, Joint Replacement, of Shoulder Sx, Amputation, Knee Sx, Hip Sx, Open Reduction Internal Fixation, Arthroscopy, of Back Surgery, Neurologic Surgery, Brain Shunt, Hysterectomy, Tubal Ligation, Organ Transplant or ESWL Social History SMOKING STATUS: Former smoker SECOND HAND EXPOSURE: No SUBSTANCE USE: methamphetamine Exam Vital Signs Temp Pulse Resp BP Pulse Ox O2 Del Method 97.8 F 82 18 174/90 H 95 Room Air 08/30/25 16:00 08/30/25 16:24 08/30/25 16:00 08/30/25 16:24 08/30/25 16:00 08/30/25 16:00 Narrative Exam Physical Exam General: Awake and in mild acute distress from muscle cramps. Conversational and non-toxic appearing. In dialysis. HEENT: Normocephalic, atraumatic, mucous membranes moist. Heart: Regular rate and rhythm, normal S1 and S2, no murmurs. Lungs: Bibasilar crackles. Abdomen: Soft, nondistended, nontender, positive bowel sounds. No guarding or rebound tenderness. Neurologic: Alert and oriented x3, no gross neurological deficit, and patient able to move all 4 extremities. Extremities: No edema. Skin: No rash or ecchymoses. Results Labs 08/31/25 03:29 08/31/25 03:29 Labs: Short CBC 08/30/25 Range/Units 09:07 WBC 6.8 (3.6-11.0) Thou/mm3 Hgb 11.4 L (12.0-16.0) g/dL Hct 35.0 L (36.0-46.0) % Plt Count 236 D (140-440) Thou/mm3 BMP 08/30/25 09:07 Sodium 144 Potassium 4.6 Chloride 107 Carbon Dioxide 24.2 BUN 63 H Creatinine 3.9 H D Glucose 170 H Calcium 8.6 Cardiac Enzymes 08/30/25 08/30/25 Range/Units 09:07 15:17 Troponin I 0.103 H* 0.118 H* (0.0-0.045) ng/mL Liver Function 08/30/25 Range/Units 09:07 Total Bilirubin 0.2 L (0.3-1.2) mg/dL AST 86 H (0-34) U/L ALT 71 H (10-49) U/L Alkaline Phosphatase 148 H (46-116) U/L Albumin 4.1 (3.4-4.8) gm/dL Urine 08/30/25 Range/Units 10:17 Urine Color Colorless A (Lt Yel-Yel) Urine Clarity Clear (Clear/Hazy) Urine pH 7.0 (5.0-7.0) Ur Specific [place] 1.011 (1.001-1.035) Urine Protein 2+ A (Neg - Trace) Urine Glucose (UA) 3+ A (Negative) Quality Measures Quality Measures none Advance care planning discussed with:: patient Medications Home Medications and Allergies Home Medications ?Medication ?Instructions ?Recorded ?Confirmed ?Type carvedilol 12.5 mg tablet 12.5 mg PO BID 08/23/2512/13 History clonidine HCl 0.2 mg tablet 0.2 mg PO Q12H 08/23/25 History Allergies Allergy/AdvReac Type Severity Reaction Status Date / Time iodine Allergy Severe Rash Verified 07/28/25 21:18 Visit Medications Acetaminophen (Acetaminophen 325 Mg Tablet) 650 mg PO Q6H PRN PRN Reason: Fever >100.4 Stop: 09/29/25 14:10 Albuterol/Ipratropium (Albuterol/Ipratropium (Duoneb) Rt Dee 3 Ml Nebu) 3 ml INH Q8HRRT [facility] [place] Stop: 09/29/25 14:59 Last Admin: 08/30/25 16:40 Dose: Not Given Carvedilol (Carvedilol 12.5 Mg Tablet) 12.5 mg PO QDAY [facility] Stop: 09/30/25 08:59 Clonidine (Clonidine Hcl 0.1 Mg Tablet) 0.2 mg PO BID [facility] Stop: 10/26/25 20:59 Heparin Sodium (Porcine) (Heparin Sod Inj 1000 Unit/Ml Vial 10 Ml) 3,800 unit INDWELLCAT X1 PRN PRN Reason: DIALYSIS Stop: 09/01/25 13:27 Last Admin: 08/30/25 14:22 Dose: 3,800 unit Albumin Human (Albuminex 25% Ivpb) 25 gm in 100 mls @ 100 mls/hr IV Q30MIN PRN PRN Reason: DIALYSIS Labetalol HCl (Labetalol Inj 5 Mg/Ml Vial 4 Ml) 10 mg IVP Q10M PRN; Protocol PRN Reason: Blood Pressure - High Stop: 09/29/25 14:25 Ondansetron HCl (Ondansetron Inj 2 Mg/Ml Inj 2 Ml) 4 mg IVP Q6H PRN; Protocol PRN Reason: NAUSEA OR VOMITING Stop: 09/29/25 14:10 Pantoprazole Sodium (Pantoprazole 40 Mg Tablet) 40 mg PO QDAY KENNEDY Stop: 09/30/25 08:59 Discontinued Medications Bumetanide (Bumetanide Inj 0.25 Mg/Ml Vial 4 Ml) 2 mg IVP X1 ONE Stop: 08/30/25 08:32 Last Admin: 08/30/25 09:11 Dose: 2 mg Bumetanide (Bumetanide 0.5 Mg Tablet) 1 mg PO X1 ONE Stop: 08/30/25 14:27 Last Admin: 08/30/25 16:24 Dose: 1 mg Hydralazine HCl (Hydralazine Inj 20 Mg/Ml Vial) 20 mg IVP X1 ONE Stop: 08/30/25 08:32 Last Admin: 08/30/25 09:10 Dose: 20 mg Valsartan (Valsartan 40 Mg Tablet) 40 mg PO X1 ONE Stop: 08/30/25 14:27 Last Admin: 08/30/25 16:23 Dose: 40 mg Assessment & Plan Plan Patient is a 69-year-old female past medical history of hypertension, COPD on 2 L home oxygen, ESRD on dialysis MWF, right breast cancer s/p mastectomy, meth use admitted on 08/30/25 for emergent dialysis, nephrology consulted for ESRD requiring emergent dialysis. #ESRD 2/2 cardiorenal syndrome #On dialysis Thursday//Thursday - Per chart review, patient has been admitted at least twice in the past 4 months for emergent dialysis. Patient has hx of being non adherent to HD sessions and outpatient follow up due to lack of transportation. Was recently discharged on 08/24 for same issue. Dialysis schedule was changed to TTS but missed her last session. - Presented again for shortness of breath requesting dialysis. - BUN 63, creatinine 3.9, GFR 12 - Chest x-ray showed moderate CHF, but still prominent curly B lines at the lateral base of both lower lobes - S/p HD session 08/30 (-2.6L) Plan: - Plan for dialysis again today as patient is still fluid overloaded on exam - Educated patient on importance of adhering to dialysis schedule however patient continues to be noncompliant. Will need to work with home health care social worker to establish reliable housing and transportation for future sessions. 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 Pulido. Vivienne Soriano DO, PGY-1
--- NOTE | 2025-08-30 16:53 | PC.NURSE ---
@9670 - BEDSIDE SHIFT REPORT GIVEN TO DESEAN APODACA FOR TELE.
[2025-08-30 21:12] LABS: Troponin I 0.138 ng/mL (0.0-0.045)
[2025-08-30] MEDS: ALBUTEROL/IPRATROPIUM (Duoneb) RT SOL 3 ML NEBU INH (23:20)
[2025-08-31] VITALS (16 sets, daily range): BP systolic 95–166; BP diastolic 62–95; PULSE 49–82; RESP 16–94; TEMP 36.4–37.3; O2SAT 92–99
[2025-08-31 03:56] LABS: Basophils # (Auto) 0.1 Thou/mm3 (0.0-0.2); Basophils % (Auto) 1 % (0-2.5); Eosinophils # (Auto) 0.2 Thou/mm3 (0.0-0.5); Eosinophils % (Auto) 3 % (0-10); Hematocrit 37.7 % (36.0-46.0); Hemoglobin 12.3 g/dL (12.0-16.0); Immature Granulocytes Auto 0.02 Thou/mm3 (0.00-0.00); Lymphocytes # (Auto) 1.4 Thou/mm3 (1.0-4.8); Lymphocytes % (Auto) 23 % (10-50); Mean Corpuscular HGB Conc 32.6 g/dl (31.0-37.0); Mean Corpuscular Hemoglobin 32.4 pg (25.0-35.0); Mean Corpuscular Volume 99 fL (80-100); Monocytes # (Auto) 0.7 Thou/mm3 (0.0-0.8); Monocytes % (Auto) 11 % (0-12); Neutrophils # (Auto) 3.5 Thou/mm3 (1.8-7.7); Neutrophils % (Auto) 61 % (37-80); Nucleated Red Blood Cell # 0.00 Thou/mm3 (0.00-0.00); Nucleated Red Blood Cell % 0 /100 WBC (0); Platelet Count 207 Thou/mm3 (140-440); RDW Standard Deviation 53.2 fL (36.4-46.3); Red Blood Count 3.80 Miln/mm3 (4.00-5.20); White Blood Count 5.8 Thou/mm3 (3.6-11.0)
[2025-08-31 04:31] LABS: Alanine Aminotransferase 44 U/L (10-49); Albumin, Serum 3.7 gm/dL (3.4-4.8); Albumin/Globulin Ratio 1.4 (1.2-2.2); Alkaline Phosphatase 119 U/L (46-116); Anion Gap 12 (7-16); Aspartate Amino Transferase 33 U/L (0-34); BUN/Creatinine Ratio 13 Ratio (12-20); Bilirubin,Total 0.3 mg/dL (0.3-1.2); Blood Urea Nitrogen 42 mg/dL (9-23); Calcium 8.1 mg/dL (8.3-10.6); Calcium (Corrected) 8.3 mg/dL (8.5-10.1); Carbon Dioxide 25.4 mMol/L (20.0-31.0); Chloride 106 mMol/L (98-107); Creatinine (Component) 3.2 mg/dL (0.6-1.3); Estimated Creatinine Clearance 12.8 mL/min (>60); Globulin 2.7 gm/dL (2.3-3.5); Glucose 117 mg/dL (74-106); Magnesium 1.5 mg/dL (1.6-2.6); Osmolality,Calculated 296 (275-295); Phosphorous 5.3 mg/dL (2.4-5.1); Potassium 3.7 mMol/L (3.4-5.1); Sodium 143 mMol/L (136-145); Thyroid Stimulating Hormone 1.51 uIU/mL (0.55-4.78); Total Protein 6.4 gm/dL (5.7-8.2); eGFR 15 See Note
[2025-08-31 04:32] LABS: Troponin I 0.128 ng/mL (0.0-0.045)
[2025-08-31] MEDS: ALBUTEROL/IPRATROPIUM (Duoneb) RT SOL 3 ML NEBU INH ×2 (06:38→15:10)
[2025-08-31] MEDS: PANTOPRAZOLE 40 MG TABLET PO (08:21)
--- NOTE | 2025-08-31 08:52 | PD.RESPRO ---
Documentation for date of: 08/31/25 Subjective Subjective Interval history: History of present illness: 69 year old female w/ a PMH significant for HTN, COPD, ESRD on hemodialysis MWFS, methamphetamine use, HFrEF(40-50% per ECHO 10/2024) breast cancer s/p R mastectomy w/ implant and housing insecurity is here for dialysis and complaints of shortness of breath. Pt endorses missing dialysis for the past three days due to a lack of transportation. Pt's vitals in ED were significant for hypertensive emergency, 231/135, and labs were significant for a troponin of 0.103 ng/mL BNP 3280pg/mL. Patient was given Bumex 2, Hydralazine 20 which improved pressure to 176/96. Patient admitted for hypertensive emergency +/- heart failure exacerbation. On presentation, Ms. Freed is alert and oriented x4, GCS 15. She states that she lives in a house with friends, and that she is unable to receive transportation to her dialysis appointments, last of which was 3/4 days ago. Additionally patient has neglected to take home medications, including clonidine, carvedilol, bumetanide and valsartan; she states that she has the medication at home but forget so take them. She does not endorse shortness of breath on examination, and no wheezing/crackles are appreciated on auscultation. CXR 0848 reveals suspicion for bilateral pleural effusions/consolidation. Regarding her heart failure, a last echocardiogram done at [facility] 10/2024 revealed LVEF 40-50% w/ mild global hypokinesis. Patient admits to a long-time use of methamphetamine, with last use two mornings ago. Ms. Freed is understanding of the plan for admission and further evaluation on medicine service. Home medications restarted. Follow up tropoinin from an initial 0.103 at 0907 revealed 0.118 at 1517. Follow up troponin ordered for 2100. Ongoing medical issues for Ms. Freed are extensive and not mutually exclusive; as such, these include Hypertensive emergency evidenced by elevated troponin, BNP, as well as electrolyte abnormalities(missed dialysis), CHF exacerbation. Patient admitted for further workup and stabilization. Nephrology consulted for emergent dialysis. 08/30/25: Patient seen and examined at bedside in dialysis, had to end session early due to muscle cramps. Schedule when discharged was changed to Thursday//Thursday. Was present at dialysis on 08/26 but has not returned since. Reports she has not been able to get rides from [employer] which she would take to go to her sessions. Removed 2.6L today. Improvement in shortness of breath but on exam, still had mild bibasilar crackles. No lower extremity swelling. Plan for dialysis again tomorrow. 08/31/25: Patient seen and examined at bedside. Plan for dialysis again today with ultrafiltration as patient still has signs of fluid overload, plan to remove 3L. Will be meeting with social work today to figure out transportation and possibly proper housing. Exam Vital Signs Temp Pulse Resp BP Pulse Ox O2 Del Method 98.0 F 77 18 166/90 H 92 L Room Air 08/31/25 08:36 08/31/25 08:36 08/31/25 08:36 08/31/25 08:36 08/31/25 08:36 08/31/25 08:00 Narrative Exam Physical Exam General: Awake and in no acute distress. Conversational and non-toxic appearing. HEENT: Normocephalic, atraumatic, mucous membranes moist. Heart: Regular rate and rhythm, normal S1 and S2, no murmurs. Lungs: Bibasilar crackles. Abdomen: Soft, nondistended, nontender, positive bowel sounds. No guarding or rebound tenderness. Neurologic: Alert and oriented x3, no gross neurological deficit, and patient able to move all 4 extremities. Extremities: No edema. Skin: No rash or ecchymoses. Objective Labs 08/31/25 03:29 08/31/25 03:29 Labs: Laboratory Results - last 24 hr 08/30/25 08/30/25 08/30/25 09:07 10:17 15:17 WBC 6.8 RBC 3.44 L Hgb 11.4 L Hct 35.0 L MCV 102 H MCH 33.1 MCHC 32.6 RDW Std Deviation 55.5 H Plt Count 236 D Neut % (Auto) 78 Lymph % (Auto) 12 [place] % (Auto) 6 Eos % (Auto) 2 Baso % (Auto) 1 Neut # (Auto) 5.3 Lymph # (Auto) 0.8 L [place] # (Auto) 0.4 Eos # (Auto) 0.2 Baso # (Auto) 0.1 Immature Gran # (Auto) 0.02 H Absolute Nucleated RBC 0.00 Immature Gran % 0 Nucleated RBC % 0 Sodium 144 Potassium 4.6 Chloride 107 Carbon Dioxide 24.2 Anion Gap 13 BUN 63 H Creatinine 3.9 H D Estim Creat Clear Calc 10.5 L eGFR 12 L* BUN/Creatinine Ratio 16 Glucose 170 H Calculated Osmolality 308 H Calcium 8.6 Corrected Calcium 8.6 Phosphorus Magnesium Total Bilirubin 0.2 L AST 86 H ALT 71 H Alkaline Phosphatase 148 H Troponin I 0.103 H* 0.118 H* B-Natriuretic Peptide > 3280 H* Total Protein 6.7 Albumin 4.1 Globulin 2.6 Albumin/Globulin Ratio 1.6 TSH Ur Collection Type Voided Urine Color Colorless A Urine Clarity Clear Urine pH 7.0 Ur Specific [place] 1.011 Urine Protein 2+ A Urine Glucose (UA) 3+ A Urine Ketones Negative Urine Blood Trace Urine Nitrite Negative Urine Bilirubin Negative Urine Urobilinogen (Auto) Negative Ur Leukocyte Esterase Negative Urine RBC 2 Urine WBC 1 Ur Squamous Epith Cells 3 Urine Bacteria None Urine Opiates Screen Negative Urine Fentanyl Screen Negative Ur Barbiturates Screen Negative U Amphetamin/Meth Scrn Positive A U Benzodiazepines Scrn Negative U Cocaine Metab Screen Negative U Marijuana (THC) Screen Negative 08/30/25 08/31/25 20:33 03:29 WBC 5.8 RBC 3.80 L Hgb 12.3 Hct 37.7 MCV 99 MCH 32.4 MCHC 32.6 RDW Std Deviation 53.2 H Plt Count 207 Neut % (Auto) 61 Lymph % (Auto) 23 [place] % (Auto) 11 Eos % (Auto) 3 Baso % (Auto) 1 Neut # (Auto) 3.5 Lymph # (Auto) 1.4 [place] # (Auto) 0.7 Eos # (Auto) 0.2 Baso # (Auto) 0.1 Immature Gran # (Auto) 0.02 H Absolute Nucleated RBC 0.00 Immature Gran % 0 Nucleated RBC % 0 Sodium 143 Potassium 3.7 D Chloride 106 Carbon Dioxide 25.4 Anion Gap 12 BUN 42 H Creatinine 3.2 H D Estim Creat Clear Calc 12.8 L eGFR 15 L BUN/Creatinine Ratio 13 Glucose 117 H D Calculated Osmolality 296 H Calcium 8.1 L Corrected Calcium 8.3 L Phosphorus 5.3 H Magnesium 1.5 L Total Bilirubin 0.3 AST 33 ALT 44 Alkaline Phosphatase 119 H D Troponin I 0.138 H* 0.128 H* B-Natriuretic Peptide Total Protein 6.4 Albumin 3.7 Globulin 2.7 Albumin/Globulin Ratio 1.4 TSH 1.51 Ur Collection Type Urine Color Urine Clarity Urine pH Ur Specific [place] Urine Protein Urine Glucose (UA) Urine Ketones Urine Blood Urine Nitrite Urine Bilirubin Urine Urobilinogen (Auto) Ur Leukocyte Esterase Urine RBC Urine WBC Ur Squamous Epith Cells Urine Bacteria Urine Opiates Screen Urine Fentanyl Screen Ur Barbiturates Screen U Amphetamin/Meth Scrn U Benzodiazepines Scrn U Cocaine Metab Screen U Marijuana (THC) Screen Quality Measures Quality Measures none Advance care planning discussed with:: patient Assessment & Plan Assessment Current Active Medications: Generic Name Dose Route Start Last Admin Trade Name Freq PRN Reason Stop Dose Admin Acetaminophen 650 mg 08/30/25 14:11 Acetaminophen 325 Mg Tablet PO 09/29/25 14:10 Q6H PRN Fever >100.4 Albuterol/Ipratropium 3 ml 08/30/25 15:00 08/31/25 06:38 Albuterol/Ipratropium (Duoneb) Rt Dee 3 Ml Nebu INH 09/29/25 14:59 3 ml Q8HRRT KENNEDY Administration Carvedilol 12.5 mg 08/31/25 09:00 08/31/25 08:21 Carvedilol 12.5 Mg Tablet PO 09/30/25 08:59 12.5 mg QDAY KENNEDY Administration Clonidine 0.2 mg 08/30/25 21:00 08/31/25 08:21 Clonidine Hcl 0.1 Mg Tablet PO 10/26/25 20:59 0.2 mg BID KENNEDY Administration Heparin Sodium (Porcine) 3,800 unit 08/30/25 13:28 08/30/25 14:22 Heparin Sod Inj 1000 Unit/Ml Vial 10 Ml INDWELLCAT 09/01/25 13:27 3,800 unit X1 PRN Administration DIALYSIS Albumin Human 25 gm in 100 mls @ 100 mls/hr 08/30/25 10:24 Albuminex 25% Ivpb IV Q30MIN PRN DIALYSIS Labetalol HCl 10 mg 08/30/25 14:26 Labetalol Inj 5 Mg/Ml Vial 4 Ml IVP 09/29/25 14:25 Q10M PRN Blood Pressure - High Protocol Ondansetron HCl 4 mg 08/30/25 14:11 Ondansetron Inj 2 Mg/Ml Inj 2 Ml IVP 09/29/25 14:10 Q6H PRN NAUSEA OR VOMITING Protocol Pantoprazole Sodium 40 mg 08/31/25 09:00 08/31/25 08:21 Pantoprazole 40 Mg Tablet PO 09/30/25 08:59 40 mg QDAY KENNEDY Administration Plan Patient is a 69-year-old female past medical history of hypertension, COPD on 2 L home oxygen, ESRD on dialysis MWF, right breast cancer s/p mastectomy, meth use admitted on 08/30/25 for emergent dialysis, nephrology consulted for ESRD requiring emergent dialysis. #ESRD 2/2 cardiorenal syndrome #On dialysis Thursday//Thursday - Per chart review, patient has been admitted at least twice in the past 4 months for emergent dialysis. Patient has hx of being non adherent to HD sessions and outpatient follow up due to lack of transportation. Was recently discharged on 08/24 for same issue. Dialysis schedule was changed to TTS but missed her last session. - Presented again for shortness of breath requesting dialysis. - BUN 63, creatinine 3.9, GFR 12 - Chest x-ray showed moderate CHF, but still prominent curly B lines at the lateral base of both lower lobes - S/p HD session 08/30 (-2.6L) Plan: - Plan for dialysis today with ultrafiltration as patient is still fluid overloaded on exam - food and nutrition services supervisor consulted - Educated patient on importance of adhering to dialysis schedule however patient continues to be noncompliant. Will need to work with social services designee to establish reliable housing and transportation for future sessions. 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 Pulido. Vivienne Soriano DO, PGY-1 Attending Provider Attestation/Addendum Patient seen and examined with resident physician Dr. Soriano. Note reviewed, agree with findings and recommendations.
[2025-08-31] MEDS: HEPARIN SOD INJ 1000 UNIT/ML VIAL 10 ML 3800 UNIT INDWELLCAT (10:06)
--- NOTE | 2025-08-31 10:44 | PC.NURSE ---
Per Nat GARCIA will work on transportation set up for dialysis prior to discharge. Per MD Leon would like dialysis transportation set up for pts dialysis dates prior to discharging pt. Made MD Sanchez aware as well.
--- NOTE | 2025-08-31 12:33 | ESDS_ITS ---
<Statement entered by Iain Sanchez MD - 08/31/25 15:20> Note reviewed and agree with care plan as documented. Please refer to the note below for further details. Plan discussed with attending physician Dr. Mirna Sanchez MD PGY-2 Internal Medicine Planned Discharge Date 08/31/25 DS: Providers Provider Date of admission: 08/30/25 11:08 Primary care physician: Rosy Vásquez OD Admitting Provider: Spike Bradley MD Attending Provider on Admission: Spike Bradley MD Consults: 08/30/25 11:09 Consult to Nephrology Routine Comment: Consulting Provider: Victoria Pulido 08/30/25 16:00 Health Equity Referral - Knowledge Deficit Routine Comment: Positive screening for knowledge deficit needs. Health Equity Referral - Nutrition Routine Comment: Positive screening for nutrition needs. Health Equity Referral - Safety Routine Comment: Positive screening for safety needs. Health Equity Referral - Transportation Routine Comment: Positive screening for transportation needs. Health Equity Referral - Utilities Routine Comment: Positive screening for utility assistance needs. Attending Provider on DC: Iain Sanchez MD Discharging Provider: Iain Sanchez MD DS: Diagnosis Problem List Completed Was Problem List Reviewed/Reconciled?: Yes Hospital Course Hospital Course Hospital course: 69 year old female w/ a PMH significant for HTN, COPD, ESRD on hemodialysis MWFS, methamphetamine use, HFrEF(40-50% per ECHO 10/2024) breast cancer s/p R mastectomy w/ implant and housing insecurity arrived to [facility] for dialysis and complaints of shortness of breath. Pt endorses missing dialysis for the past three days due to a lack of transportation. Pt's vitals in ED were significant for hypertensive emergency, 231/135, and labs were significant for a troponin of 0.103 ng/mL BNP 3280pg/mL. Patient was given Bumex 2, Hydralazine 20 which improved pressure to 176/96. Patient admitted for hypertensive emergency +/- heart failure exacerbation. On presentation, Ms. Alatorre was alert and oriented x4, GCS 15. She states that she lives in a house with friends, and that she is unable to receive transportation to her dialysis appointments, last of which was 3/4 days ago. Additionally patient has neglected to take home medications, including clonidine, carvedilol, bumetanide and valsartan; she states that she has the medication at home but forget so take them. She does not endorse shortness of breath on examination, and no wheezing/crackles are appreciated on auscultation. CXR 0848 reveals suspicion for bilateral pleural effusions/consolidation/fluid overload. Regarding her heart failure, a last echocardiogram done at [facility] 10/2024 revealed LVEF 40-50% w/ mild global hypokinesis. Patient admits to a long-time use of methamphetamine, with last use two mornings ago. Ongoing medical issues for Ms. Alatorre are extensive and not mutually exclusive; as such, these include Hypertensive emergency evidenced by elevated troponin, BNP, as well as electrolyte abnormalities(missed dialysis), CHF exacerbation. Patient admitted for further workup and stabilization. Nephrology was consulted for emergent dialysis on day of admission. Dialysis was stopped prematurely due to muscle cramps. By morning after admission Ms. Alatorre remained stable and underwent a second round of dialysis. Nephrology met with with pt and established a new schedule for Dialysis: Thursday, and Thursday at 9:20am, at [facility]. Social work contacted [facility] who stated that Ms. Alatorre frequently forgets to attend dialysis. Pt expressed that she had thought she lost insurance coverage, to which coverage was confirmed by Custodial Engineer. Discharge instructions with strict plans for PCP follow up and adherent to dialysis schedule, as well as alterations to home BP medications were thoroughly explianed, and Ms. Vaughn demonstrated understanding. Ms. Alatorre was ordered an uber at 4:00pm to her home on [address]. She was safely discharged without event on day 2 of admission after returning to baseline. Discharge Diagnoses #Hypertensive emergency #History of hypertension #NSTEMI type II/demand ischemia - resolved s/p dialysis, BP control #ESRD (M/W/F/Sat) on hemodialysis #HFmrEF (EF 45-50%, 10/2024) #COPD #Methamphetamine use Discharge Instructions: Please return to the ED if you are having shortness of breath confusion, fever or for any other acute concerns Your new dialysis schedule is Thursday, and Thursday, please make sure to attend dialysis Two medications were added to your regimen - nifedipine 60mg every day, clonidine 0.2mg BID Please make sure to take your blood pressure medication Please follow up with your PCP within 1-2 weeks Please look over resources provided by [employer] Serviceperson regarding transportation and housing Your medication list has been updated with instructions - please make sure to carefully take them as prescribed Please refrain from methamphetamine and cigarette use; the consequences of continued use have been discussed thoroughly Status at Discharge Cognitive/behavioral status at discharge: clinically stable, at baseline Time Spent with Patient Time attestation: Total time spent providing and/or coordinating discharge services: Time spent: Greater than 30 minutes Exam Vital Signs Temp Pulse Resp BP Pulse Ox O2 Del Method 97.6 F 61 23 H 95/62 94 L Room Air 08/31/25 12:08/31/25 12:08/31/25 12:08/31/25 12:08/31/25 12:08/31/25 12:00 Narrative Exam General: alert and oriented to self/place/year, no acute distress, able to speak full sentences HEENT: NC/AT, mucous membranes moist, bilateral sclera anicteric Cardiovascular: regular rate and rhythm, S1/S2 present, no murmurs appreciated Pulmonary: clear to auscultation bilaterally, no rales/rhonchi/wheezes Abdomen/Chest: soft, nontender, present bowel sounds; R breast implant in place, no obvious concerns Musculoskeletal: no peripheral edema Skin: Warm, well-perfused Discharge Plan Plan Patient Disposition: HOME (Self Care) Patient condition on transfer: Stable Care Plan Goals: Please return to the ED if you are having shortness of breath confusion, fever or for any other acute concerns Your new dialysis schedule is Thursday, and Thursday, please make sure to attend dialysis Two medications were added to your regimen - nifedipine 60mg every day, clonidine 0.2mg BID Please make sure to take your blood pressure medication Please follow up with your PCP within 1-2 weeks Please look over resources provided by [employer] Serviceperson regarding transportation and housing Your medication list has been updated with instructions - please make sure to carefully take them as prescribed Please refrain from methamphetamine and cigarette use; the consequences of continued use have been discussed thoroughly Prescriptions/Referrals Prescriptions/Med Rec: Continued valsartan 40 mg tablet 40 mg PO BID Qty: 60 0RF bumetanide 1 mg tablet 1 mg PO QDAY Qty: 14 0RF Trelegy Ellipta 100-62.5-25 mcg blister with device 1 inh inhalation QDAY Qty: 28 0RF carvedilol 12.5 mg tablet 12.5 mg PO BID Patient Comments: TAKE 1 TABLET BY MOUTH TWICE DAILY FOR 10 DAYS WITH FOOD ORAL TWICE A DAY clonidine HCl 0.2 mg tablet 0.2 mg PO Q12H Patient Comments: TAKE 1 TABLET BY MOUTH TWICE A DAY Referrals: Rosy Vásquez OD [Primary Care Provider] Patient/Caregiver Discharge Instructions Discharge Activity: activity as tolerated Education Materials: Hemodialysis, Caring for Your Hemodialysis Access, Addiction: Getting Help, Addiction Recovery Counseling Print Language: [place] Stand Alone Forms: Fern Award Info., Patient Portal Info Letter Discharge Order Discharge Orders: Discharge (Routine); Ordered 08/31/25 Ordered By: Iain Soriano [facility] Quality Discharge Quality Measures none MD Attestestation MD Attestation I have examined the patient, reviewed labs and imaging findings, discussed the case with the resident(s), and reviewed entered orders. I agree with the plan of care as outlined in this note. Time Spent: [address] Mirna MD
--- NOTE | 2025-08-31 13:33 | PC.SS ---
SS met with patient in dialysis session. Patient is alert/oriented. Patient was able to verify demographics. Patient states she missed her dialysis treatment because she had no transportation. Patient is residing with friends and is independent with ADL's. Patient has been staying at this location for months. No DME. Patient tox report was positive for meth. Patient was admitted for hypertensive crisis. SS contacted [facility] who states patient doesn't remember her dialysis sessions frequently. Patient states she thought she lost her insurance coverage. SS reviewed information. She did not. Patient o/p dialysis schedule is: //Sat @ 9:20a.m. Transportation to and from dialysis was scheduled by staff at dialysis center. They scheduled for dialysis treatment warp picker for Sat. SS will schedule patient UBER for 4p.m. back to her home on [address]. PCP: Dr. Vásquez. Patient Ice Cream Freezer Helper: Dr. Pulido. Discharge set for today. SS will update floor nurse.
--- NOTE | 2025-08-31 14:00 | PC.NURSE ---
Nat SS meet with pt at bedside. Per Nat transportation has been successfully set up for schedule dialysis days as well as uber transportation requested by pt to go home today.
== END 2025-08-31 16:18 | disposition home or self-care (01) | DRG 280 ==
LOC: SERX 10:10 → SERHOLD 11:31 → S3SX 15:45
PROVIDERS: Admitting Provider Student in an Organized Health Care Education/Training Program; Emergency Provider Emergency Medicine; PCP Optometrist; Visit Provider Student in an Organized Health Care Education/Training Program
DX: I16.1 Hypertensive emergency (principal); I50.23 Acute on chronic systolic (congestive) heart failure; I21.A1 Myocardial infarction type 2; N18.6 End stage renal disease; I13.2 Hypertensive heart and chronic kidney disease with heart failure and with stage 5 chronic kidney disease, or end stage renal disease; Z90.13 Acquired absence of bilateral breasts and nipples; Z85.3 Personal history of malignant neoplasm of breast; F17.210 Nicotine dependence, cigarettes, uncomplicated; K70.30 Alcoholic cirrhosis of liver without ascites; Z91.158 Patient's noncompliance with renal dialysis for other reason; Z59.82 Transportation insecurity; I44.7 Left bundle-branch block, unspecified; Z99.2 Dependence on renal dialysis; F15.90 Other stimulant use, unspecified, uncomplicated; Z91.148 Patient's other noncompliance with medication regimen for other reason; Z79.899 Other long term (current) drug therapy; Z99.81 Dependence on supplemental oxygen
CPT/HCPCS: 36415; 71045; 80053; 80307; 81001; 83735; 83880; 84100; 84443; 84484; 85025; 87081; 87502; 87635; 93005; 93225; 94640; 96374; 96375; 99283; A9270; J0360; J1643; J3490